=== PATIENT | male | born 1945 | race Caucasian/White ===

== ENCOUNTER 2016-10-27 12:36 | Emergency (ER) | payer MEDICARE ==
[2016-10-27 12:53] VITALS: BP 143/65; PULSE 79; RESP 18; TEMP 98.3
--- NOTE | 2016-10-27 13:15 | ED ---
URI HPI - General Chief Complaint: Upper Respiratory Infection Stated Complaint: Cough,Headache Time Seen by Provider: 10/27/16 13:06 Source: patient, RN notes reviewed Mode of arrival: ambulatory Limitations: no limitations - History of Present Illness Initial Comments: Patient is a 71-year-old male presents to the emergency room for evaluation of cough and congestion. Patient states he's had symptoms since Sunday. Patient states that he has not been taking any [id number]-[id number] medications for symptoms. Patient states he has a dry cough. Patient denies coughing up any mucus. Patient states he has a slightly stuffy nose is having sinus congestion mostly on the left side. Patient denies ear pain. Patient states he only has a headache when he coughs. Patient states she has throat pain after coughing. Patient denies nausea or vomiting, abdominal pain, diarrhea or constipation. Patient denies any fevers. Patient denies smoking. - Related Data Home Medications Medication Instructions Recorded Confirmed Lansoprazole [Prevacid] 15 mg PO DAILY 08/06/14 08/14/16 Loratadine [Claritin] 10 mg PO DAILY 08/06/14 08/14/16 Lisinopril [Zestril] 2.5 mg PO DAILY 05/12/15 08/14/16 Fluticasone Propionate [Flonase 1 spray EA NOSTRIL DAILY PRN 04/19/16 08/14/16 Allergy Relief] Acetaminophen Tab [Tylenol] 650 mg PO Q6H PRN 08/14/16 08/14/16 Cholecalciferol [Vitamin D3] 5,000 unit PO DAILY 08/14/16 08/14/16 HYDROcodone/APAP 7.5-325MG [[place] 1 tab PO Q8H PRN 08/14/16 08/14/16 7.5-325] glipiZIDE [Glucotrol] 10 mg PO AC-SUPPER 08/14/16 08/14/16 Previous Rx's Medication Instructions Recorded Cefuroxime Axetil [Ceftin] 500 mg PO BID #20 tablet 08/17/16 Sodium Chloride 0.65% Nasal [Deep 2 spray NASAL QID PRN #0 spray 08/18/16 Sea] traMADol HCl [Ultram] 50 mg PO QID #20 tab 08/18/16 Fluticasone Nasal [place] [Flonase 2 spr EA NOSTRIL DAILY PRN #1 10/27/16 Nasal [place]] bottle guaiFENesin [Mucinex] 1,200 mg PO BID PRN 12 Days 10/27/16 Allergies Allergy/AdvReac Type Severity Reaction Status Date / Time amoxicillin [From Augmentin] Allergy Rash/Hives Verified 10/27/16 12:54 clavulanic acid Allergy Rash/Hives Verified 10/27/16 12:54 [From Augmentin] Review of Systems ROS Statement: Those systems with pertinent positive or pertinent negative responses have been documented in the HPI. ROS Other: All systems not noted in ROS Statement are negative. 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 History of Any Multi-Drug Resistant Organisms: None Reported Past Surgical History: Orthopedic Surgery Additional Past Surgical History / Comment(s): LEFT HAND thumb tendon repair. Past Anesthesia/Blood Transfusion Reactions: No Reported Reaction Past Psychological History: No Psychological Hx Reported Additional Psychological History / Comment(s): Pt resides with his spouse. He is independent. Smoking Status: Never smoker Past Alcohol Use History: Occasional Past Drug Use History: None Reported - Past Family History Father Family Medical History: CVA/TIA Additional Family Medical History / Comment(s): Father at the age of 85yrs. Mother Family Medical History: Diabetes Mellitus Additional Family Medical History / Comment(s): Mother at the age of 90yrs. General Exam - General Exam Comments Initial Comments: Sitting in exam room in no acute distress. Limitations: no limitations General appearance: alert, in no apparent distress Head exam: Present: atraumatic, normocephalic, normal inspection Eye exam: Present: normal appearance, PERRL, EOMI Pupils: Present: normal accommodation ENT exam: Present: normal exam, normal oropharynx, mucous membranes moist, TM's normal bilaterally, normal external ear exam Neck exam: Present: normal inspection, full ROM. Absent: tenderness, lymphadenopathy Respiratory exam: Present: normal lung sounds bilaterally. Absent: respiratory distress Cardiovascular Exam: Present: regular rate, normal rhythm, normal heart sounds Extremities exam: Present: normal inspection Back exam: Present: normal inspection Neurological exam: Present: alert, oriented X3, CN II-XII intact, normal gait Psychiatric exam: Present: normal affect, normal mood Skin exam: Present: warm, dry, intact, normal color. Absent: rash Course Vital Signs 10/27/16 12:49 Temperature 98.3 F Pulse Rate 79 Respiratory 18 Rate Blood Pressure 143/65 O2 Sat by Pulse 97 Oximetry Medical Decision Making - Medical Decision Making Patient is a 71-year-old male presents to the emergency room for evaluation sinus congestion since Sunday. Patient denies taking anything for his symptoms. Advised patient to take Mucinex and Flonase for symptoms and if they do not improve within 1 week to follow-up with his primary care provider. Patient states he understands everything that was discussed with him. Return parameters discussed. Disposition Clinical Impression: Upper respiratory infection Disposition: HOME SELF-CARE Condition: Good Instructions: Upper Respiratory Infection (ED) Additional Instructions: Take medications as directed. Please follow up with primary care provider in 1- 2 days for reevaluation. If any new symptom arises, symptoms worsen or fever develops, return to ER as soon as possible. Prescriptions: Fluticasone Nasal [place] [Flonase Nasal [place]] 2 spr EA NOSTRIL DAILY PRN #1 bottle PRN Reason: Congestion guaiFENesin [Mucinex] 1,200 mg PO BID PRN 12 Days PRN Reason: Congestion Referrals: None,Stated [Primary Care Provider] - 1-2 days Time of Disposition: 13:13
== END 2016-10-27 13:24 | disposition home or self-care (01) ==
LOC: EC 12:36
DX: J06.9 Acute upper respiratory infection, unspecified (principal); I10 Essential (primary) hypertension; E11.9 Type 2 diabetes mellitus without complications; K21.9 Gastro-esophageal reflux disease without esophagitis; Z79.84 Long term (current) use of oral hypoglycemic drugs; Z79.51 Long term (current) use of inhaled steroids; Z79.899 Other long term (current) drug therapy; J30.2 Other seasonal allergic rhinitis
CPT/HCPCS: 99283

== ENCOUNTER 2016-11-20 12:19 | Emergency (ER) | payer MEDICARE ==
[2016-11-20 12:42] VITALS: PULSE 63; RESP 18; TEMP 97.6
--- NOTE | 2016-11-20 13:08 | ED ---
Extremity Problem HPI - General Chief complaint: Extremity Problem,Nontraumatic Stated complaint: Rt Arm Weakness Time Seen by Provider: 11/20/16 12:53 Source: patient, RN notes reviewed Mode of arrival: ambulatory Limitations: no limitations - History of Present Illness Initial comments: 71-year-old male presents emergency Department with chief complaint of right shoulder pain. Patient has chronic right shoulder pain but states that he was bowling on Sunday and states that he was having increasing pain and states it felt very fatigued. Patient states that is still bothering but states he has no weakness. Patient denies any blurred vision, headache, dizziness, neck pain , chest pain or shortness of breath. Patient states he had no other associated symptoms. He states he never lost function of it. Patient states that he needs a work no because of his right shoulder. Patient has seen a surgeon in the past and states that there is nothing that they can do for him. - Related Data Home Medications Medication Instructions Recorded Confirmed Lansoprazole [Prevacid] 15 mg PO DAILY 08/06/14 08/14/16 Loratadine [Claritin] 10 mg PO DAILY 08/06/14 08/14/16 Lisinopril [Zestril] 2.5 mg PO DAILY 05/12/15 08/14/16 Fluticasone Propionate [Flonase 1 spray EA NOSTRIL DAILY PRN 04/19/16 08/14/16 Allergy Relief] Acetaminophen Tab [Tylenol] 650 mg PO Q6H PRN 08/14/16 08/14/16 Cholecalciferol [Vitamin D3] 5,000 unit PO DAILY 08/14/16 08/14/16 HYDROcodone/APAP 7.5-325MG [[place] 1 tab PO Q8H PRN 08/14/16 08/14/16 7.5-325] glipiZIDE [Glucotrol] 10 mg PO AC-SUPPER 08/14/16 08/14/16 Previous Rx's Medication Instructions Recorded Cefuroxime Axetil [Ceftin] 500 mg PO BID #20 tablet 08/17/16 Sodium Chloride 0.65% Nasal [Deep 2 spray NASAL QID PRN #0 spray 08/18/16 Sea] traMADol HCl [Ultram] 50 mg PO QID #20 tab 08/18/16 Fluticasone Nasal [place] [Flonase 2 spr EA NOSTRIL DAILY PRN #1 10/27/16 Nasal [place]] bottle guaiFENesin [Mucinex] 1,200 mg PO BID PRN 12 Days 10/27/16 Allergies Allergy/AdvReac Type Severity Reaction Status Date / Time amoxicillin [From Augmentin] Allergy Rash/Hives Verified 11/20/16 12:42 clavulanic acid Allergy Rash/Hives Verified 11/20/16 12:42 [From Augmentin] Review of Systems ROS Statement: Those systems with pertinent positive or pertinent negative responses have been documented in the HPI. ROS Other: All systems not noted in ROS Statement are negative. 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 History of Any Multi-Drug Resistant Organisms: None Reported Past Surgical History: Orthopedic Surgery Additional Past Surgical History / Comment(s): LEFT HAND thumb tendon repair. Past Anesthesia/Blood Transfusion Reactions: No Reported Reaction Past Psychological History: No Psychological Hx Reported Additional Psychological History / Comment(s): Pt resides with his spouse. He is independent. Smoking Status: Never smoker Past Alcohol Use History: Occasional Past Drug Use History: None Reported - Past Family History Father Family Medical History: CVA/TIA Additional Family Medical History / Comment(s): Father at the age of 85yrs. Mother Family Medical History: Diabetes Mellitus Additional Family Medical History / Comment(s): Mother at the age of 90yrs. General Exam Limitations: no limitations General appearance: alert, in no apparent distress Head exam: Present: atraumatic, normocephalic, normal inspection Eye exam: Present: normal appearance, PERRL, EOMI. Absent: scleral icterus, conjunctival injection, periorbital swelling ENT exam: Present: normal exam, normal oropharynx, mucous membranes moist Neck exam: Present: normal inspection, full ROM. Absent: tenderness, meningismus, lymphadenopathy Respiratory exam: Present: normal lung sounds bilaterally. Absent: respiratory distress, wheezes, rales, rhonchi, stridor Cardiovascular Exam: Present: regular rate, normal rhythm, normal heart sounds. Absent: systolic murmur, diastolic murmur, rubs, gallop, clicks Extremities exam: Present: other (Right shoulder there is some limited range of motion with extension of the shoulder secondary to rotator cuff injury patient has equal hide examiner strength pulses are equal bilaterally +2 radial, Refill less than 2 seconds patient has normal bicep, tricep tenderness normal reflexes lower extremity strength equal bilaterally also) Back exam: Present: full ROM. Absent: tenderness Neurological exam: Present: alert, oriented X3, CN II-XII intact, reflexes normal. Absent: motor sensory deficit Skin exam: Present: warm, dry, intact, normal color. Absent: rash Course Vital Signs 11/20/16 12:38 Temperature 97.6 F Pulse Rate 63 Respiratory 18 Rate Blood Pressure 181/74 O2 Sat by Pulse 96 Oximetry Disposition Clinical Impression: Right shoulder strain Disposition: HOME SELF-CARE Condition: Stable Instructions: Shoulder Sprain (ED) Additional Instructions: Please return to the Emergency Department if symptoms worsen or any other concerns. Referrals: None,Stated [Primary Care Provider] - 1-2 days Time of Disposition: 13:08
[2016-11-20 13:22] VITALS: BP 172/77
== END 2016-11-20 13:22 | disposition home or self-care (01) ==
LOC: EC 12:19
DX: S46.911A Strain of unspecified muscle, fascia and tendon at shoulder and upper arm level, right arm, initial encounter (principal); E11.9 Type 2 diabetes mellitus without complications; K21.9 Gastro-esophageal reflux disease without esophagitis; I10 Essential (primary) hypertension; M19.049 Primary osteoarthritis, unspecified hand; C95.91 Leukemia, unspecified, in remission; Z79.899 Other long term (current) drug therapy; Z88.0 Allergy status to penicillin; X58.XXXA Exposure to other specified factors, initial encounter; Y93.54 Activity, bowling
CPT/HCPCS: 99283

== ENCOUNTER → 2017-04-19 | Outpatient (CLI) | payer MEDICARE ==
--- NOTE | 2017-04-19 15:12 | CT ---
EXAMINATION TYPE: CT sinus wo con DATE OF EXAM: 04/19/2017 COMPARISON: 09/10/2009 HISTORY: Chronic sinus infections. CT DLP: 599 mGycm. Automated Exposure Control for Dose Reduction was Utilized. TECHNIQUE: CT scan of the sinuses is performed without contrast, axial images are obtained, coronal r eformatted images are also reviewed. FINDINGS: The paranasal sinuses including the frontal, ethmoid, sphenoid, and maxillary sinuses bila terally are well-aerated with very mild mucosal thickening involving both maxillary sinuses. No air-f luid levels.. The ostiomeatal complex is patent bilaterally on the coronal images. Visualized portion of mastoid air cells show no abnormal opacification. The globes are intact bilate rally. There are small kristian bullosa bilaterally. IMPRESSION: 1. Very mild chronic maxillary sinusitis.
== END | disposition home or self-care (01) ==
LOC: RADCTMAIN 14:41
PROVIDERS: ATTEND Otolaryngology
DX: J32.0 Chronic maxillary sinusitis (principal)
CPT/HCPCS: 70486

== ENCOUNTER 2017-05-25 06:57 | Emergency (ER) | payer MEDICARE ==
[2017-05-25] MEDS ORDERED: MECLIZINE 25 MG TAB PO STA (07:27)
--- NOTE | 2017-05-25 07:33 | ED ---
General Adult HPI - General Chief complaint: Dizziness Stated complaint: Light headed Time Seen by Provider: 05/25/17 07:05 Source: patient, RN notes reviewed Mode of arrival: ambulatory Limitations: no limitations - History of Present Illness Initial comments: 5-year-old male presents emergency department stating that he's been a little bit dizzy the last few days. Patient states she's been fighting some ALLERGIES and has been seeing an ENT for those ALLERGIES. Patient states the last couple days he gets the dizziness which makes him feel like he is moving back and forth. Patient states he woke up this morning started to work and got those feelings again and he was concerned so he came to the emergency department. Patient states his sugar was high yesterday and he recently was on steroids which she stopped because his sugars really high when he was on steroids. Patient states he got his sugar down last night he was concerned that maybe it was up again and he had run out of strips. Patient denies any chest pain or palpitations. Patient denies any shortness of breath or difficulty breathing. Patient denies any diaphoretic episodes. Patient denies abdominal pain patient denies nausea vomiting diarrhea. Patient denies any near syncopal episode. Patient states it's more of an off-balance feeling. Patient states moving his head deftly makes it worse per patient denies any new ringing in his ears or new deafness. Patient denies any recent injury or trauma. - Related Data Home Medications Medication Instructions Recorded Confirmed Lansoprazole [Prevacid] 15 mg PO DAILY 08/06/14 05/25/17 glipiZIDE [Glucotrol] 10 mg PO BID 08/14/16 05/25/17 Cetirizine HCl [Zyrtec] 10 mg PO DAILY 05/25/17 05/25/17 Lisinopril [Zestril] 20 mg PO DAILY 05/25/17 05/25/17 Montelukast Sodium [Singulair] 10 mg PO HS 05/25/17 05/25/17 metFORMIN HCL [Glucophage] 500 mg PO DAILY 05/25/17 05/25/17 Previous Rx's Medication Instructions Recorded Fluticasone Nasal [employer] [employer] [Flonase 2 spr EA NOSTRIL DAILY PRN #1 10/27/16 Nasal [employer]] bottle Meclizine [Antivert] 25 mg PO TID #20 tab 05/25/17 Allergies Allergy/AdvReac Type Severity Reaction Status Date / Time amoxicillin [From Augmentin] Allergy Rash/Hives Verified 05/25/17 08:13 clavulanic acid Allergy Rash/Hives Verified 05/25/17 08:13 [From Augmentin] Review of Systems ROS Statement: Those systems with pertinent positive or pertinent negative responses have been documented in the HPI. ROS Other: All systems not noted in ROS Statement are negative. 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 History of Any Multi-Drug Resistant Organisms: None Reported Past Surgical History: Orthopedic Surgery Additional Past Surgical History / Comment(s): LEFT HAND thumb tendon repair. Past Anesthesia/Blood Transfusion Reactions: No Reported Reaction Past Psychological History: No Psychological Hx Reported Smoking Status: Never smoker Past Alcohol Use History: Occasional Past Drug Use History: None Reported - Past Family History Father Family Medical History: CVA/TIA Additional Family Medical History / Comment(s): Father at the age of 85yrs. Mother Family Medical History: Diabetes Mellitus Additional Family Medical History / Comment(s): Mother at the age of 90yrs. General Exam - General Exam Comments Initial Comments: GENERAL: Patient is well-developed and well-nourished. Patient is nontoxic and well- hydrated and is in mild distress. ENT: Neck is soft and supple. No significant lymphadenopathy is noted. Oropharynx is clear. Moist mucous membranes. Neck has full range of motion without eliciting any pain. EYES: The sclera were anicteric and conjunctiva were pink and moist. Extraocular movements were intact and pupils were equal round and reactive to light. Eyelids were unremarkable. PULMONARY: Unlabored respirations. Good breath sounds bilaterally. No audible rales rhonchi or wheezing was noted. CARDIOVASCULAR: There is a regular rate and rhythm without any murmurs gallops or rubs. ABDOMEN: Soft and nontender with normal bowel sounds. No palpable organomegaly was noted. There is no palpable pulsatile mass. SKIN: Skin is clear with no lesions or rashes and otherwise unremarkable. NEUROLOGIC: Patient is alert and oriented x3. Cranial nerves II through XII are grossly intact. Motor and sensory are also intact. Normal speech, volume and content. Symmetrical smile. Cerebellar testing finger to nose is normal. MUSCULOSKELETAL: Normal extremities with adequate strength and full range of motion. No lower extremity swelling or edema. No calf tenderness. LYMPHATICS: No significant lymphadenopathy is noted PSYCHIATRIC: Normal psychiatric evaluation. Normal interpersonal interactions appears functionally intact in deals appropriately with others. No signs of depression. No signs of anxiety. Limitations: no limitations Course Vital Signs 05/25/17 05/25/17 05/25/17 07:05 08:08 08:53 Temperature 97.8 F 97.7 F Pulse Rate 62 56 L 54 L Respiratory 18 20 18 Rate Blood Pressure 142/66 116/59 114/55 O2 Sat by Pulse 97 98 97 Oximetry Medical Decision Making - Medical Decision Making EKG shows normal sinus rhythm at 61 bpm [place] interval is 126 QRS is 90 QT interval is 424 QTC is 426 per patient's EKG shows no ST segment elevation or depression or T wave normalities are noted. Chest x-ray shows no acute normalities. CT of the brain shows no acute normalities. Patient was ambulatory around the department he states he felt better but not quite to his baseline he still felt as though he had a little bit of dizziness. Patient states this is been ongoing intermittently for quite a while but over the last week has gotten considerably worse. - Lab Data Result diagrams: 05/25/17 07:45 05/25/17 07:45 Lab Results 05/25/17 05/25/17 05/25/17 Range/Units 07:45 07:45 07:45 WBC 37.3 H* (3.8-10.6) k/uL RBC 4.42 (4.30-5.90) m/uL Hgb 14.4 (13.0-17.5) gm/dL Hct 39.6 (39.0-53.0) % MCV 89.5 (80.0-100.0) fL MCH 32.5 (25.0-35.0) pg MCHC 36.3 (31.0-37.0) g/dL RDW 13.6 (11.5-15.5) % Plt Count 150 (150-450) k/uL Neutrophils % (Manual) 13 % Lymphocytes % (Manual) 86 % Monocytes % (Manual) 1 % Eosinophils % (Manual) 1 % Neutrophils # (Manual) 4.85 (1.3-7.7) k/uL Lymphocytes # (Manual) 32.08 H (1.0-4.8) k/uL Monocytes # (Manual) 0.37 (0-1.0) k/uL Eosinophils # (Manual) 0.37 (0-0.7) k/uL Nucleated RBCs 0 (0-0) /100 WBC Poikilocytosis (manual Present Anisocytosis (manual) Present PT (9.0-12.0) sec INR (<1.2) APTT (22.0-30.0) sec Sodium 136 L (137-145) mmol/L Potassium 4.6 (3.5-5.1) mmol/L Chloride 102 (98-107) mmol/L Carbon Dioxide 23 (22-30) mmol/L Anion Gap 11 mmol/L BUN 23 H (9-20) mg/dL Creatinine 0.99 (0.66-1.25) mg/dL Est GFR (MDRD) Af Amer >60 (>60 ml/min/1.73 sqM) Est GFR (MDRD) Non-Af >60 (>60 ml/min/1.73 sqM) Glucose 306 H (74-99) mg/dL Calcium 9.1 (8.4-10.2) mg/dL Magnesium 1.7 (1.6-2.3) mg/dL Total Bilirubin 0.7 (0.2-1.3) mg/dL AST 17 (17-59) U/L ALT 27 (21-72) U/L Alkaline Phosphatase 122 (38-126) U/L Total Creatine Kinase 101 (55-170) U/L CK-MB (CK-2) 1.9 (0.0-2.4) ng/mL CK-MB (CK-2) Rel Index 1.9 Troponin I <0.012 (0.000-0.034) ng/mL Total Protein 6.0 L (6.3-8.2) g/dL Albumin 3.8 (3.5-5.0) g/dL 05/25/17 Range/Units 07:45 WBC (3.8-10.6) k/uL RBC (4.30-5.90) m/uL Hgb (13.0-17.5) gm/dL Hct (39.0-53.0) % MCV (80.0-100.0) fL MCH (25.0-35.0) pg MCHC (31.0-37.0) g/dL RDW (11.5-15.5) % Plt Count (150-450) k/uL Neutrophils % (Manual) % Lymphocytes % (Manual) % Monocytes % (Manual) % Eosinophils % (Manual) % Neutrophils # (Manual) (1.3-7.7) k/uL Lymphocytes # (Manual) (1.0-4.8) k/uL Monocytes # (Manual) (0-1.0) k/uL Eosinophils # (Manual) (0-0.7) k/uL Nucleated RBCs (0-0) /100 WBC Poikilocytosis (manual Anisocytosis (manual) PT 11.2 (9.0-12.0) sec INR 1.1 (<1.2) APTT 22.6 (22.0-30.0) sec Sodium (137-145) mmol/L Potassium (3.5-5.1) mmol/L Chloride (98-107) mmol/L Carbon Dioxide (22-30) mmol/L Anion Gap mmol/L BUN (9-20) mg/dL Creatinine (0.66-1.25) mg/dL Est GFR (MDRD) Af Amer (>60 ml/min/1.73 sqM) Est GFR (MDRD) Non-Af (>60 ml/min/1.73 sqM) Glucose (74-99) mg/dL Calcium (8.4-10.2) mg/dL Magnesium (1.6-2.3) mg/dL Total Bilirubin (0.2-1.3) mg/dL AST (17-59) U/L ALT (21-72) U/L Alkaline Phosphatase (38-126) U/L Total Creatine Kinase (55-170) U/L CK-MB (CK-2) (0.0-2.4) ng/mL CK-MB (CK-2) Rel Index Troponin I (0.000-0.034) ng/mL Total Protein (6.3-8.2) g/dL Albumin (3.5-5.0) g/dL Disposition Clinical Impression: Vertigo Disposition: HOME SELF-CARE Condition: Good Instructions: Vertigo (ED) Prescriptions: Meclizine [Antivert] 25 mg PO TID #20 tab Referrals: Edgard Schneider DO [Primary Care Provider] - 1-2 days Time of Disposition: 10:01
[2017-05-25 08:05] LABS: ALT 27 U/L (21-72); AST 17 U/L (17-59); Alkaline Phosphatase 122 U/L (38-126); Anion Gap 11 mmol/L; Blood Urea Nitrogen 23 mg/dL (9-20); Calcium 9.1 mg/dL (8.4-10.2); Carbon Dioxide 23 mmol/L (22-30); Chloride 102 mmol/L (98-107); Glucose 306 mg/dL (74-99); Magnesium 1.7 mg/dL (1.6-2.3); Non-African American GFR(MDRD) >60 (>60 ml/min/1.73 sqM); Potassium 4.6 mmol/L (3.5-5.1); Sodium 136 mmol/L (137-145); Total Bilirubin 0.7 mg/dL (0.2-1.3)
[2017-05-25 08:15] LABS: Creatine Kinase 101 U/L (55-170)
--- NOTE | 2017-05-25 08:15 | XR ---
EXAMINATION TYPE: XR chest 2V DATE OF EXAM: 05/25/2017 COMPARISON: NONE HISTORY: Lightheadedness TECHNIQUE: Frontal and lateral views of the chest are obtained. FINDINGS: There is no focal air space opacity, pleural effusion, or pneumothorax seen. The cardiac silhouette size is within normal limits. The osseous structures are intact. IMPRESSION: No acute cardiopulmonary process.
[2017-05-25 08:18] LABS: INR 1.1 (<1.2); Partial Thromboplastin Time 22.6 sec (22.0-30.0); Prothrombin Time 11.2 sec (9.0-12.0)
[2017-05-25 08:19] LABS: CH 32.1; CHCM 36.1; HCT 39.6 % (39.0-53.0); HDW 3.17; HGB 14.4 gm/dL (13.0-17.5); MCH 32.5 pg (25.0-35.0); MCHC 36.3 g/dL (31.0-37.0); MCV 89.5 fL (80.0-100.0); Mean Platelet Volume 7.4; RBC 4.42 m/uL (4.30-5.90); RDW 13.6 % (11.5-15.5); WBC (Perox) 33.62
[2017-05-25 08:27] LABS: Creatine Kinase MB 1.9 ng/mL (0.0-2.4); Troponin I <0.012 ng/mL (0.000-0.034)
[2017-05-25 08:28] LABS: WBC 37.3 k/uL (3.8-10.6)
[2017-05-25 08:47] LABS: Add Differential Manual Differential
[2017-05-25 08:50] LABS: Nucleated Red Blood Cells 0 /100 WBC (0-0); Total Cells Counted 200
[2017-05-25] MEDS ORDERED: SODIUM CHLORIDE 0.9% 1,000 ML IV ONE (08:50)
[2017-05-25 08:54] VITALS: PULSE 54
--- NOTE | 2017-05-25 09:47 | CT ---
EXAMINATION TYPE: CT brain wo con DATE OF EXAM: 05/25/2017 COMPARISON: 12/12/2016 INDICATION: Light headed DLP: 1036 mGycm, Automated exposure control for dose reduction was used. CONTRAST: None CT of the brain is performed utilizing 3 mm thick sections through the posterior fossa and 3 mm thick sections through the remaining calvarium. Study is performed within 24 hours of arrival to the hosp [facility]. No abnormal hyperdensity is present to suggest an acute intracranial hemorrhage. No mass lesion is evident. No acute infarcts are evident. Ventricles and sulci are appropriate for the patient age. Paranasal sinuses and mastoid air cells within the [id number] are clear. IMPRESSIONS: 1. Normal CT Brain 2. Exam is stable from 12/12/2016.
[2017-05-25 10:21] VITALS: BP 132/68; RESP 16; TEMP 98
== END 2017-05-25 10:26 | disposition home or self-care (01) ==
LOC: EC 06:57
DX: R42 Dizziness and giddiness (principal); E11.9 Type 2 diabetes mellitus without complications; K21.9 Gastro-esophageal reflux disease without esophagitis; I10 Essential (primary) hypertension; Z85.6 Personal history of leukemia; Z79.84 Long term (current) use of oral hypoglycemic drugs; Z79.899 Other long term (current) drug therapy; Z88.0 Allergy status to penicillin
CPT/HCPCS: 36415; 70450; 71020; 80053; 82550; 82553; 83735; 84484; 85025; 85610; 85730; 93005; 96360; 99284

== ENCOUNTER 2017-08-20 11:05 | Emergency (ER) | payer MEDICARE ==
[2017-08-20 11:14] VITALS: RESP 18
--- NOTE | 2017-08-20 11:36 | ED ---
URI HPI - General Chief Complaint: Upper Respiratory Infection Stated Complaint: Fall Time Seen by Provider: 08/20/17 11:16 Source: patient, RN notes reviewed, old records reviewed Mode of arrival: ambulatory Limitations: no limitations - History of Present Illness Initial Comments: 72-year-old male presents emergency Department chief complaint of some right- sided rib pain after he fell while moving his furnace. He reports that he's also had a minor cough. It's been a dry cough. No productive sputum. No fevers or chills. He also reports sinuses been congested. He states that all this occurred after his furnace or not in his house. He reports he try to fix furnace when he fell on his back. He states that the changes in weather has made him sick. Denies difficulty breathing, denies chest pain. Denies nausea, vomiting, abdominal pain. - Related Data Home Medications Medication Instructions Recorded Confirmed Lansoprazole [Prevacid] 15 mg PO DAILY 08/06/14 08/20/17 glipiZIDE [Glucotrol] 10 mg PO BID 08/14/16 08/20/17 Cetirizine HCl [Zyrtec] 10 mg PO DAILY 05/25/17 08/20/17 Lisinopril [Zestril] 20 mg PO DAILY 05/25/17 08/20/17 Montelukast Sodium [Singulair] 10 mg PO HS 05/25/17 08/20/17 metFORMIN HCL [Glucophage] 500 mg PO DAILY 05/25/17 08/20/17 Previous Rx's Medication Instructions Recorded Fluticasone Nasal [place] [Flonase 2 spr EA NOSTRIL DAILY PRN #1 10/27/16 Nasal [place]] bottle Azithromycin [Zithromax Z-pack] 250 mg PO DIRECTED #6 tab 08/20/17 Fluticasone Nasal [place] [Flonase 2 spr EA NOSTRIL DAILY #1 bottle 08/20/17 Nasal [place]] Ibuprofen [Motrin] 600 mg PO Q8HR PRN #15 tab 08/20/17 Allergies Allergy/AdvReac Type Severity Reaction Status Date / Time amoxicillin [From Augmentin] Allergy Rash/Hives Verified 08/20/17 11:36 clavulanic acid Allergy Rash/Hives Verified 08/20/17 11:36 [From Augmentin] Review of Systems ROS Statement: Those systems with pertinent positive or pertinent negative responses have been documented in the HPI. ROS Other: All systems not noted in ROS Statement are negative. Past Medical History Past Medical History: Cancer, Diabetes Mellitus, GERD/Reflux, Hypertension, Osteoarthritis (OA) Additional Past Medical History / Comment(s): NIDDM type II, 1999 LEUKEMIA (CLL- remission), sinus problems, seasonal allergies, tinnitis bilaterally, OA hands, R wrist carpal tunnel, past fx with L elbow, R rotator cuff tendon problems, L rotator cuff tear. History of Any Multi-Drug Resistant Organisms: None Reported Past Surgical History: Orthopedic Surgery Additional Past Surgical History / Comment(s): LEFT HAND thumb tendon repair. Past Anesthesia/Blood Transfusion Reactions: No Reported Reaction Past Psychological History: No Psychological Hx Reported Smoking Status: Never smoker Past Alcohol Use History: Occasional Past Drug Use History: None Reported - Past Family History Father Family Medical History: CVA/TIA Additional Family Medical History / Comment(s): Father at the age of 85yrs. Mother Family Medical History: Diabetes Mellitus Additional Family Medical History / Comment(s): Mother at the age of 90yrs. General Exam - General Exam Comments Initial Comments: 72-year-old male. No distress. Limitations: no limitations General appearance: alert, in no apparent distress Head exam: Present: atraumatic, normocephalic, normal inspection Eye exam: Present: normal appearance, PERRL, EOMI. Absent: scleral icterus, conjunctival injection, periorbital swelling ENT exam: Present: normal exam, mucous membranes moist Neck exam: Present: normal inspection. Absent: tenderness, meningismus, lymphadenopathy Respiratory exam: Present: normal lung sounds bilaterally, chest wall tenderness (Right-sided lower rib tenderness). Absent: respiratory distress, wheezes, rales, rhonchi, stridor Cardiovascular Exam: Present: regular rate, normal rhythm, normal heart sounds. Absent: systolic murmur, diastolic murmur, rubs, gallop, clicks GI/Abdominal exam: Present: soft, normal bowel sounds. Absent: distended, tenderness, guarding, rebound, rigid Extremities exam: Present: normal inspection, full ROM, normal capillary refill. Absent: tenderness, pedal edema, joint swelling, calf tenderness Back exam: Present: normal inspection Neurological exam: Present: alert, oriented X3, CN II-XII intact Psychiatric exam: Present: normal affect, normal mood Skin exam: Present: warm, dry, intact, normal color. Absent: rash Course Vital Signs 08/20/17 08/20/17 08/20/17 11:11 11:57 12:38 Temperature 97.0 F L 97.6 F Pulse Rate 61 62 Respiratory 18 18 18 Rate Blood Pressure 157/70 147/72 O2 Sat by Pulse 98 96 Oximetry Medical Decision Making - Medical Decision Making 72-year-old male presents emergency Department chief complaint of some right- sided rib pain after he fell while moving his furnace. He reports that he's also had a minor cough. It's been a dry cough. Patient has right rib pain. Lungs are clear, no distress. does have sinus drainage and pressure. Patient CXR is negative for acute process. Patient will be discharged with motrin and tyelnol for pain and advised to apply heat and ice to lower rib for contusion and muscle pain. Patient also discharged with flonase for sinusitis. Return parameters discussed. - Radiology Data Radiology results: report reviewed Chest x-ray was reviewed and negative for any acute process. Disposition Clinical Impression: Upper respiratory infection with cough and congestion, Muscle strain of right upper back Disposition: HOME SELF-CARE Condition: Good Instructions: Upper Respiratory Infection (ED) Additional Instructions: Advised to apply heat and ice to her back. Patient should take Motrin for pain. Antibiotic prescription as directed. Also recommended using Nasal saline spray. An [id number] decongestions. Prescriptions: Azithromycin [Zithromax Z-pack] 250 mg PO DIRECTED #6 tab Fluticasone Nasal [place] [Flonase Nasal [place]] 2 spr EA NOSTRIL DAILY #1 bottle Ibuprofen [Motrin] 600 mg PO Q8HR PRN #15 tab PRN Reason: Pain Referrals: Edgard Schneider DO [Primary Care Provider] - 1-2 days Time of Disposition: 12:34
--- NOTE | 2017-08-20 11:54 | XR ---
EXAMINATION TYPE: XR chest 2V DATE OF EXAM: 08/20/2017 COMPARISON: 05/25/2017 HISTORY: 72-year-old male with pain after fall 4 days ago TECHNIQUE: PA and lateral views FINDINGS: Heart is normal size. Mild elongation of the thoracic aorta. No consolidation, pneumothorax, or pleur al effusion. IMPRESSION: No acute cardiopulmonary process.
[2017-08-20 12:53] VITALS: BP 147/72; PULSE 62; TEMP 97.6
== END 2017-08-20 12:39 | disposition home or self-care (01) ==
LOC: EC 11:05
DX: S29.012A Strain of muscle and tendon of back wall of thorax, initial encounter (principal); J06.9 Acute upper respiratory infection, unspecified; E11.9 Type 2 diabetes mellitus without complications; K21.9 Gastro-esophageal reflux disease without esophagitis; I10 Essential (primary) hypertension; M19.049 Primary osteoarthritis, unspecified hand; Z85.6 Personal history of leukemia; Z79.84 Long term (current) use of oral hypoglycemic drugs; Z79.899 Other long term (current) drug therapy; Z88.0 Allergy status to penicillin; W19.XXXA Unspecified fall, initial encounter; Y93.89 Activity, other specified
CPT/HCPCS: 71020; 99284

== ENCOUNTER 2017-11-08 12:11 | Emergency (ER) | payer MEDICARE ==
--- NOTE | 2017-11-08 14:13 | ED ---
General Adult HPI - General Chief complaint: Headache Stated complaint: Headache Time Seen by Provider: 11/08/17 14:00 Source: patient Mode of arrival: ambulatory Limitations: no limitations - History of Present Illness Initial comments: This is a 72-year-old male with a history of diabetes and CLL who presents him in [facility] for generalized fatigue, mild headache, cough, generalized body aches. He states is been going on for the last week however seem to worsen last night. He states he felt febrile last night however not today. He still sees felt very fatigued and he states that his legs ache after he gets and walking. He denies any nausea, vomiting, or diarrhea. No abdominal pain. He states that he's been having intermittent headaches on the top of his head. It sounds like this is been going on for quite some time and is around an area where he had something removed from his scalp. The patient has had this evaluated in the past and etiology is unclear. There is been no dysuria or hematuria. No urinary frequency. No URI symptoms. No other acute complaints. - Related Data Home Medications Medication Instructions Recorded Confirmed Lansoprazole [Prevacid] 15 mg PO DAILY 08/06/14 11/08/17 Cetirizine HCl [Zyrtec] 10 mg PO DAILY 05/25/17 11/08/17 Lisinopril [Zestril] 20 mg PO DAILY 05/25/17 11/08/17 Montelukast Sodium [Singulair] 10 mg PO HS 05/25/17 11/08/17 glipiZIDE [Glucotrol] 5 mg PO AC-BID 11/08/17 11/08/17 Previous Rx's Medication Instructions Recorded Fluticasone Nasal [place] [Flonase 2 spr EA NOSTRIL DAILY PRN #1 10/27/16 Nasal [place]] bottle Allergies Allergy/AdvReac Type Severity Reaction Status Date / Time amoxicillin [From Augmentin] Allergy Rash/Hives Verified 11/08/17 14:20 clavulanic acid Allergy Rash/Hives Verified 11/08/17 14:20 [From Augmentin] Review of Systems ROS Statement: Those systems with pertinent positive or pertinent negative responses have been documented in the HPI. ROS Other: All systems not noted in ROS Statement are negative. Past Medical History Past Medical History: Cancer, Diabetes Mellitus, GERD/Reflux, Hypertension, Osteoarthritis (OA) Additional Past Medical History / Comment(s): NIDDM type II, 1998 LEUKEMIA (CLL- remission), sinus problems, seasonal allergies, tinnitis bilaterally, OA hands, R wrist carpal tunnel, past fx with L elbow, R rotator cuff tendon problems, L rotator cuff tear. History of Any Multi-Drug Resistant Organisms: None Reported Past Surgical History: Orthopedic Surgery Additional Past Surgical History / Comment(s): LEFT HAND thumb tendon repair. Past Anesthesia/Blood Transfusion Reactions: No Reported Reaction Past Psychological History: No Psychological Hx Reported Smoking Status: Never smoker Past Alcohol Use History: Occasional Past Drug Use History: None Reported - Past Family History Father Family Medical History: CVA/TIA Additional Family Medical History / Comment(s): Father at the age of 85yrs. Mother Family Medical History: Diabetes Mellitus Additional Family Medical History / Comment(s): Mother at the age of 90yrs. General Exam - General Exam Comments Initial Comments: Constitutional: Awake alert Appears comfortable Head: Normocephalic atraumatic Eyes: no conjunctival injection No scleral icterus EOMI, pupils are 4 mm reactive bilaterally ENT: Oropharynx is nonerythematous, TMs clear bilaterally Neck: No JVD Supple Heart: Regular rate rhythm normal S1-S2 no murmurs Lungs: Clear to auscultation bilaterally No wheezing No rales Abdomen: Soft nondistended nontender Extremities: Non edematous DP pulses intact Radial pulses intact Neuro: A&Ox3, cranial nerves II through XII are grossly intact, 5 out of 5 strength in upper and lower extremities bilaterally, sensation intact to light touch in all extremities, normal finger nose and heel to mckinnon testing. No focal neurologic deficits Psych: Appropriate mood and affect Limitations: no limitations Course Vital Signs 11/08/17 11/08/17 12:21 14:33 Temperature 97.6 F Pulse Rate 68 60 Respiratory 16 18 Rate Blood Pressure 175/77 133/62 O2 Sat by Pulse 96 96 Oximetry EKG Findings - EKG Comments: EKG Findings:: EKG showing normal sinus rhythm with a rate of 60. Normal ST segment changes or T-wave inversions. QTC is 408. Other vitals normal. No ectopy. Medical Decision Making - Medical Decision Making This is a 72-year-old male came in for generalized weakness and vague complaints. He denied a headache while in the emergency department. Labwork was reviewed and showed a worsening leukocytosis. He does have a history of CLL however he stated he used to be in remission however this appears to be that it's been slowly increasing. I advised him to follow-up with his primary doctor to have this evaluated further. He does have a mild mild achy eye however nothing severe. He needs to drink plenty of fluids and follow-up his primary doctor. He otherwise feels well. Skin no focal neurologic deficits. Is not ill-appearing at all. At this time feel these okay to go home however needs very close follow-up with his primary doctor. If he develops any worsening or new symptoms he needs return the emergency Department. All questions were answered. - Lab Data Result diagrams: 11/08/17 14:20 11/08/17 14:20 Lab Results 11/08/17 11/08/17 11/08/17 Range/Units 14:20 14:20 14:20 WBC 38.1 H* (3.8-10.6) k/uL RBC 4.76 (4.30-5.90) m/uL Hgb 14.8 (13.0-17.5) gm/dL Hct 43.0 (39.0-53.0) % MCV 90.4 (80.0-100.0) fL MCH 31.1 (25.0-35.0) pg MCHC 34.4 (31.0-37.0) g/dL RDW 13.6 (11.5-15.5) % Plt Count 137 L (150-450) k/uL Neutrophils % (Manual) 12 % Lymphocytes % (Manual) 87 % Monocytes % (Manual) 2 % Eosinophils % (Manual) 1 % Neutrophils # (Manual) 4.57 (1.3-7.7) k/uL Lymphocytes # (Manual) 33.15 H (1.0-4.8) k/uL Monocytes # (Manual) 0.76 (0-1.0) k/uL Eosinophils # (Manual) 0.38 (0-0.7) k/uL Nucleated RBCs 0 (0-0) /100 WBC Poikilocytosis (manual Present Anisocytosis (manual) Present Sodium 139 (137-145) mmol/L Potassium 5.1 (3.5-5.1) mmol/L Chloride 102 (98-107) mmol/L Carbon Dioxide 24 (22-30) mmol/L Anion Gap 13 mmol/L BUN 23 H (9-20) mg/dL Creatinine 1.27 H (0.66-1.25) mg/dL Est GFR (MDRD) Af Amer >60 (>60 ml/min/1.73 sqM) Est GFR (MDRD) Non-Af 56 (>60 ml/min/1.73 sqM) Glucose 348 H (74-99) mg/dL Calcium 10.0 (8.4-10.2) mg/dL Total Bilirubin 0.7 (0.2-1.3) mg/dL AST 20 (17-59) U/L ALT 32 (21-72) U/L Alkaline Phosphatase 127 H (38-126) U/L Total Protein 6.7 (6.3-8.2) g/dL Albumin 4.5 (3.5-5.0) g/dL Urine Color Urine Appearance (Clear) Urine pH (5.0-8.0) Ur Specific [place] (1.001-1.035) Urine Protein (Negative) Urine Glucose (UA) (Negative) Urine Ketones (Negative) Urine Blood (Negative) Urine Nitrite (Negative) Urine Bilirubin (Negative) Urine Urobilinogen (<2.0) mg/dL Ur Leukocyte Esterase (Negative) Influenza Type A RNA Not Detected (Not Detectd) Influenza Type B (PCR) Not Detected (Not Detectd) Blood Type Blood Type Recheck Antibody Screen Spec Expiration Date 11/08/17 11/08/17 Range/Units 14:20 15:10 WBC (3.8-10.6) k/uL RBC (4.30-5.90) m/uL Hgb (13.0-17.5) gm/dL Hct (39.0-53.0) % MCV (80.0-100.0) fL MCH (25.0-35.0) pg MCHC (31.0-37.0) g/dL RDW (11.5-15.5) % Plt Count (150-450) k/uL Neutrophils % (Manual) % Lymphocytes % (Manual) % Monocytes % (Manual) % Eosinophils % (Manual) % Neutrophils # (Manual) (1.3-7.7) k/uL Lymphocytes # (Manual) (1.0-4.8) k/uL Monocytes # (Manual) (0-1.0) k/uL Eosinophils # (Manual) (0-0.7) k/uL Nucleated RBCs (0-0) /100 WBC Poikilocytosis (manual Anisocytosis (manual) Sodium (137-145) mmol/L Potassium (3.5-5.1) mmol/L Chloride (98-107) mmol/L Carbon Dioxide (22-30) mmol/L Anion Gap mmol/L BUN (9-20) mg/dL Creatinine (0.66-1.25) mg/dL Est GFR (MDRD) Af Amer (>60 ml/min/1.73 sqM) Est GFR (MDRD) Non-Af (>60 ml/min/1.73 sqM) Glucose (74-99) mg/dL Calcium (8.4-10.2) mg/dL Total Bilirubin (0.2-1.3) mg/dL AST (17-59) U/L ALT (21-72) U/L Alkaline Phosphatase (38-126) U/L Total Protein (6.3-8.2) g/dL Albumin (3.5-5.0) g/dL Urine Color Yellow Urine Appearance Clear (Clear) Urine pH 5.0 (5.0-8.0) Ur Specific [place] 1.026 (1.001-1.035) Urine Protein Negative (Negative) Urine Glucose (UA) 4+ H (Negative) Urine Ketones Negative (Negative) Urine Blood Negative (Negative) Urine Nitrite Negative (Negative) Urine Bilirubin Negative (Negative) Urine Urobilinogen <2.0 (<2.0) mg/dL Ur Leukocyte Esterase Negative (Negative) Influenza Type A RNA (Not Detectd) Influenza Type B (PCR) (Not Detectd) Blood Type O Negative Blood Type Recheck No Antibody Screen NEGATIVE Spec Expiration Date 11/11/20172319 Disposition Clinical Impression: Leukocytosis, CLL (chronic lymphocytic leukemia) Disposition: HOME SELF-CARE Condition: Stable Instructions: Leukocytosis (ED) Additional Instructions: Call your PCP to make appointment to have your elevated WBC checking into further. Return to ED if you develop new or worsening symptoms. Referrals: Edgard Schneider DO [Primary Care Provider] - 1-2 days
[2017-11-08 14:42] LABS: ALT 32 U/L (21-72); AST 20 U/L (17-59); Albumin 4.5 g/dL (3.5-5.0); Alkaline Phosphatase 127 U/L (38-126); Anion Gap 13 mmol/L; Blood Urea Nitrogen 23 mg/dL (9-20); Carbon Dioxide 24 mmol/L (22-30); Chloride 102 mmol/L (98-107); Glucose 348 mg/dL (74-99); Potassium 5.1 mmol/L (3.5-5.1); Sodium 139 mmol/L (137-145); Total Bilirubin 0.7 mg/dL (0.2-1.3); Total Protein 6.7 g/dL (6.3-8.2)
[2017-11-08 14:43] LABS: HGB 14.8 gm/dL (13.0-17.5); MCH 31.1 pg (25.0-35.0); MCHC 34.4 g/dL (31.0-37.0); MCV 90.4 fL (80.0-100.0); Mean Platelet Volume 7.3; Platelet Count 137 k/uL (150-450); RBC 4.76 m/uL (4.30-5.90); RDW 13.6 % (11.5-15.5)
--- NOTE | 2017-11-08 14:46 | XR ---
EXAMINATION TYPE: XR chest 2V DATE OF EXAM: 11/08/2017 COMPARISON: Prior chest x-ray 08/20/2017 HISTORY: Pain TECHNIQUE: Frontal and lateral views of the chest are obtained. FINDINGS: There is no focal air space opacity, pleural effusion, or pneumothorax seen. The cardiac silhouette size is within normal limits. Arthropathy noted at the acromioclavicular joints. The oss eous structures are intact. IMPRESSION: No acute cardiopulmonary process.
[2017-11-08 14:48] LABS: WBC 38.1 k/uL (3.8-10.6)
[2017-11-08 15:11] LABS: Lymphocytes # (M) 33.15 k/uL (1.0-4.8); Neutrophils # (M) 4.57 k/uL (1.3-7.7); Neutrophils % (M) 12 %
[2017-11-08 15:12] LABS: Anisocytosis (M) Present; Eosinophils # (M) 0.38 k/uL (0-0.7); Monocytes # (M) 0.76 k/uL (0-1.0); Nucleated Red Blood Cells 0 /100 WBC (0-0); Poikilocytosis (M) Present; Total Cells Counted 200
[2017-11-08 15:22] LABS: Appearance,Urine Clear (Clear); Bilirubin,Urine Negative (Negative); Blood,Urine Negative (Negative); Color,Urine Yellow; Glucose,Urine (UA) 4+ (Negative); Ketones,Urine Negative (Negative); Leukocyte Esterase,Urine Negative (Negative); Nitrite,Urine Negative (Negative); Protein,Urine Negative (Negative); Specific Gravity,Urine 1.026 (1.001-1.035); Urobilinogen,Urine <2.0 mg/dL (<2.0)
[2017-11-08 15:59] VITALS: BP 160/71; PULSE 67; RESP 16; TEMP 97.3
== END 2017-11-08 16:00 | disposition home or self-care (01) ==
LOC: EC 12:11
DX: C91.11 Chronic lymphocytic leukemia of B-cell type in remission (principal); D72.829 Elevated white blood cell count, unspecified; E11.9 Type 2 diabetes mellitus without complications; I10 Essential (primary) hypertension; Z88.0 Allergy status to penicillin; Z79.84 Long term (current) use of oral hypoglycemic drugs; Z79.899 Other long term (current) drug therapy
CPT/HCPCS: 36415; 71046; 80053; 81003; 85025; 86850; 86900; 86901; 87086; 87502; 93005; 99284

== ENCOUNTER → 2018-08-13 | Outpatient (CLI) | payer MEDICARE ==
[~2018-08-13] MED LIST: ACETAMINOPHEN TAB 500 MG TAB PO NR; ACETAMINOPHEN TAB 500 MG TAB PO ONE; IMMUNE GLOBULIN (GAMMAGARD) 30 GM in EMPTY BAG 1 BAG IV NR; IMMUNE GLOBULIN (GAMUNEX-C) 10 GM in EMPTY BAG 1 BAG IV NR; IMMUNE GLOBULIN (GAMUNEX-C) 20 GM in EMPTY BAG 1 BAG IV NR; IMMUNE GLOBULIN (GAMUNEX-C) 40 GM in EMPTY BAG 1 BAG IV NR; SODIUM CHLORIDE 0.9% 500 ML 500 ML in EMPTY BAG 1 BAG IV PRN; diphenhydrAMINE 50 MG/ML 1 ML VIAL IVP NR; diphenhydrAMINE 50 MG/ML 1 ML VIAL IVP ONE; methylPREDNISolone SOD SUCCI 125 MG/2 ML VIAL IV NR; methylPREDNISolone SOD SUCCI 125 MG/2 ML VIAL IV ONE; methylPREDNISolone SOD SUCCI 125 MG/2 ML VIAL IVP ONE
[2018-08-13 10:06] VITALS: RESP 16; TEMP 97.6
[2018-08-13 11:23] VITALS: BP 130/73; PULSE 54
== END | disposition home or self-care (01) ==
LOC: PROCWHC3 09:08
PROVIDERS: ATTEND Internal Medicine Hematology & Oncology
DX: Z51.12 Encounter for antineoplastic immunotherapy (principal); C91.10 Chronic lymphocytic leukemia of B-cell type not having achieved remission
CPT/HCPCS: 96365; 96366; 96375; J1200; J2930; J1561 ×2

== ENCOUNTER 2019-12-14 12:54 | Emergency (ER) | payer MEDICARE ==
[2019-12-14 13:05] VITALS: TEMP 97.5
[2019-12-14] MEDS ORDERED: SODIUM CHLORIDE 0.9% 500 ML 500 ML IV STA (13:23)
--- NOTE | 2019-12-14 13:36 | ED ---
General Adult HPI - General Chief complaint: Shortness of Breath Stated complaint: Weakness Time Seen by Provider: 12/14/19 13:00 Source: patient, RN notes reviewed, old records reviewed Mode of arrival: ambulatory Limitations: no limitations - History of Present Illness Initial comments: This is a 74-year-old male with a past medical history significant for CLL. Patient states he comes in today because he has a week of being generally weak. Patient states he has had occasional where he short of breath but not today. Patient denies any dizziness or lightheadedness. Patient denies any near syncopal episode. Patient denies any chest pain or palpitations. Patient states he had a little nausea patient is not nauseous currently. Patient denies any abdominal pain. Patient denies any fever chills. Patient states he thinks he might be dehydrated because he states seems to be weaker he has been eating and drinking normally - Related Data Home Medications Medication Instructions Recorded Confirmed Lansoprazole [Prevacid] 15 mg PO DAILY 08/06/14 08/13/18 Cetirizine HCl [Zyrtec] 10 mg PO DAILY 05/25/17 08/13/18 Lisinopril [Zestril] 40 mg PO DAILY 05/25/17 08/13/18 Montelukast Sodium [Singulair] 10 mg PO HS 05/25/17 08/13/18 Ibuprofen [Motrin] 800 mg PO DAILY PRN 08/13/18 08/13/18 Pioglitazone [Actos] 45 mg PO DAILY 08/13/18 08/13/18 Previous Rx's Medication Instructions Recorded Fluticasone Nasal [place] [Flonase 2 spr EA NOSTRIL DAILY PRN #1 10/27/16 Nasal [place]] bottle Allergies Allergy/AdvReac Type Severity Reaction Status Date / Time amoxicillin [From Augmentin] Allergy Rash/Hives Verified 12/14/19 13:05 clavulanic acid Allergy Rash/Hives Verified 12/14/19 13:05 [From Augmentin] Review of Systems ROS Statement: Those systems with pertinent positive or pertinent negative responses have been documented in the HPI. ROS Other: All systems not noted in ROS Statement are negative. Past Medical History Past Medical History: Cancer, Diabetes Mellitus, GERD/Reflux, Hypertension, Osteoarthritis (OA) Additional Past Medical History / Comment(s): NIDDM type II, 1999 LEUKEMIA (CLL- remission), sinus problems, seasonal allergies, tinnitis bilaterally, OA hands, R wrist carpal tunnel, past fx with L elbow, R rotator cuff tendon problems, L rotator cuff tear. History of Any Multi-Drug Resistant Organisms: None Reported Past Surgical History: Orthopedic Surgery Additional Past Surgical History / Comment(s): LEFT HAND thumb tendon repair. Past Anesthesia/Blood Transfusion Reactions: No Reported Reaction Past Psychological History: No Psychological Hx Reported Smoking Status: Never smoker Past Alcohol Use History: None Reported Past Drug Use History: None Reported - Past Family History Father Family Medical History: CVA/TIA Additional Family Medical History / Comment(s): Father at the age of 85yrs. Mother Family Medical History: Diabetes Mellitus Additional Family Medical History / Comment(s): Mother at the age of 90yrs. General Exam - General Exam Comments Initial Comments: GENERAL: Patient is well-developed and well-nourished. Patient is nontoxic and well- hydrated and is in no acute distress. ENT: Neck is soft and supple. No significant lymphadenopathy is noted. Oropharynx is clear. Moist mucous membranes. Neck has full range of motion without eliciting any pain. EYES: The sclera were anicteric and conjunctiva were pink and moist. Extraocular movements were intact and pupils were equal round and reactive to light. Eyelid s were unremarkable. PULMONARY: Unlabored respirations. Good breath sounds bilaterally. No audible rales rhonchi or wheezing was noted. CARDIOVASCULAR: There is a regular rate and rhythm without any murmurs gallops or rubs. ABDOMEN: Soft and nontender with normal bowel sounds. SKIN: Skin is clear with no lesions or rashes and otherwise unremarkable. NEUROLOGIC: Patient is alert and oriented x3. Cranial nerves II through XII are grossly intact. Motor and sensory are also intact. Normal speech, volume and content. Symmetrical smile. MUSCULOSKELETAL: Normal extremities with adequate strength and full range of motion. No lower extremity swelling or edema. No calf tenderness. LYMPHATICS: No significant lymphadenopathy is noted PSYCHIATRIC: Normal psychiatric evaluation. Limitations: no limitations Course Vital Signs 12/14/19 12/14/19 12/14/19 13:02 13:40 13:42 Temperature 97.5 F L Pulse Rate 80 70 Respiratory 22 18 18 Rate Blood Pressure 172/70 130/76 O2 Sat by Pulse 98 99 Oximetry 12/14/19 12/14/19 14:10 14:57 Temperature Pulse Rate 71 66 Respiratory 18 18 Rate Blood Pressure 138/72 169/85 O2 Sat by Pulse 98 99 Oximetry Medical Decision Making - Medical Decision Making EKG shows normal sinus rhythm at 74 bpm. Was 144 QRS is 84 QT interval 384 QTC is 426. EKG shows no ST segment elevation or depression. Patient got 500 mL of normal saline and is feeling considerably better. Patient states he feels good enough to go home at this time. Patient has no symptoms currently. - Lab Data Result diagrams: 12/14/19 13:35 12/14/19 13:35 Lab Results 12/14/19 12/14/19 12/14/19 Range/Units 13:35 13:35 13:35 WBC 26.8 H (3.8-10.6) k/uL RBC 4.72 (4.30-5.90) m/uL Hgb 15.1 (13.0-17.5) gm/dL Hct 43.5 (39.0-53.0) % MCV 92.1 D (80.0-100.0) fL MCH 31.9 (25.0-35.0) pg MCHC 34.7 (31.0-37.0) g/dL RDW 13.3 (11.5-15.5) % Plt Count 137 L (150-450) k/uL Neutrophils % 12 % Lymphocytes % 81 % Monocytes % 2 % Eosinophils % 0 % Basophils % 1 % Neutrophils # 3.3 (1.3-7.7) k/uL Lymphocytes # 21.8 H (1.0-4.8) k/uL Monocytes # 0.5 (0-1.0) k/uL Eosinophils # 0.1 (0-0.7) k/uL Basophils # 0.2 (0-0.2) k/uL Manual Slide Review Performed PT 10.6 (9.0-12.0) sec INR 1.0 (<1.2) APTT 22.2 (22.0-30.0) sec Sodium 138 (137-145) mmol/L Potassium 4.3 (3.5-5.1) mmol/L Chloride 104 (98-107) mmol/L Carbon Dioxide 25 (22-30) mmol/L Anion Gap 9 mmol/L BUN 22 H (9-20) mg/dL Creatinine 0.79 (0.66-1.25) mg/dL Est GFR (CKD-EPI)AfAm >90 (>60 ml/min/1.73 sqM) Est GFR (CKD-EPI)NonAf >90 (>60 ml/min/1.73 sqM) Glucose 230 H (74-99) mg/dL Plasma Lactic Acid [place] (0.7-2.0) mmol/L Calcium 9.6 (8.4-10.2) mg/dL Magnesium 2.0 (1.6-2.3) mg/dL Total Bilirubin 0.7 (0.2-1.3) mg/dL AST 20 (17-59) U/L ALT 21 (4-49) U/L Alkaline Phosphatase 82 (38-126) U/L Troponin I (0.000-0.034) ng/mL Total Protein 7.0 (6.3-8.2) g/dL Albumin 4.5 (3.5-5.0) g/dL TSH 1.440 (0.465-4.680) mIU/L Urine Color Urine Appearance (Clear) Urine pH (5.0-8.0) Ur Specific [place] (1.001-1.035) Urine Protein (Negative) Urine Glucose (UA) (Negative) Urine Ketones (Negative) Urine Blood (Negative) Urine Nitrite (Negative) Urine Bilirubin (Negative) Urine Urobilinogen (<2.0) mg/dL Ur Leukocyte Esterase (Negative) 12/14/19 12/14/19 12/14/19 Range/Units 13:35 13:35 Unknown WBC (3.8-10.6) k/uL RBC (4.30-5.90) m/uL Hgb (13.0-17.5) gm/dL Hct (39.0-53.0) % MCV (80.0-100.0) fL MCH (25.0-35.0) pg MCHC (31.0-37.0) g/dL RDW (11.5-15.5) % Plt Count (150-450) k/uL Neutrophils % % Lymphocytes % % Monocytes % % Eosinophils % % Basophils % % Neutrophils # (1.3-7.7) k/uL Lymphocytes # (1.0-4.8) k/uL Monocytes # (0-1.0) k/uL Eosinophils # (0-0.7) k/uL Basophils # (0-0.2) k/uL Manual Slide Review PT (9.0-12.0) sec INR (<1.2) APTT (22.0-30.0) sec Sodium (137-145) mmol/L Potassium (3.5-5.1) mmol/L Chloride (98-107) mmol/L Carbon Dioxide (22-30) mmol/L Anion Gap mmol/L BUN (9-20) mg/dL Creatinine (0.66-1.25) mg/dL Est GFR (CKD-EPI)AfAm (>60 ml/min/1.73 sqM) Est GFR (CKD-EPI)NonAf (>60 ml/min/1.73 sqM) Glucose (74-99) mg/dL Plasma Lactic Acid [place] 1.3 (0.7-2.0) mmol/L Calcium (8.4-10.2) mg/dL Magnesium (1.6-2.3) mg/dL Total Bilirubin (0.2-1.3) mg/dL AST (17-59) U/L ALT (4-49) U/L Alkaline Phosphatase (38-126) U/L Troponin I <0.012 (0.000-0.034) ng/mL Total Protein (6.3-8.2) g/dL Albumin (3.5-5.0) g/dL TSH (0.465-4.680) mIU/L Urine Color Yellow Urine Appearance Clear (Clear) Urine pH 5.5 (5.0-8.0) Ur Specific [place] 1.028 (1.001-1.035) Urine Protein Trace H (Negative) Urine Glucose (UA) 4+ H (Negative) Urine Ketones Negative (Negative) Urine Blood Negative (Negative) Urine Nitrite Negative (Negative) Urine Bilirubin Negative (Negative) Urine Urobilinogen 2.0 (<2.0) mg/dL Ur Leukocyte Esterase Negative (Negative) Disposition Clinical Impression: Weakness generalized, Dehydration Disposition: HOME SELF-CARE Condition: Good Instructions (If sedation given, give patient instructions): Dehydration (ED), Weakness (ED) Is patient prescribed a controlled substance at d/c from ED?: No Referrals: Edgard Schneider DO [Primary Care Provider] - 1-2 days Time of Disposition: 15:15
--- NOTE | 2019-12-14 13:51 | XR ---
EXAMINATION TYPE: XR chest 2V DATE OF EXAM: 12/14/2019 COMPARISON: 11/08/2017 HISTORY: 74-year-old male weakness TECHNIQUE: PA and lateral views FINDINGS: Heart normal size. Aorta and pulmonary vasculature within normal limits. Mild interstitial prominence is unchanged. No consolidation or pleural effusion. IMPRESSION: Chronic changes without acute cardiopulmonary process.
[2019-12-14 13:53] VITALS: RESP 18
[2019-12-14 14:00] LABS: Partial Thromboplastin Time 22.2 sec (22.0-30.0); Prothrombin Time 10.6 sec (9.0-12.0)
[2019-12-14 14:02] LABS: ALT 21 U/L (4-49); AST 20 U/L (17-59); African American GFR (CKD) >90 (>60 ml/min/1.73 sqM); Albumin 4.5 g/dL (3.5-5.0); Alkaline Phosphatase 82 U/L (38-126); Anion Gap 9 mmol/L; Blood Urea Nitrogen 22 mg/dL (9-20); Calcium 9.6 mg/dL (8.4-10.2); Carbon Dioxide 25 mmol/L (22-30); Chloride 104 mmol/L (98-107); Glucose 230 mg/dL (74-99); Non-African American GFR(CKD) >90 (>60 ml/min/1.73 sqM); Potassium 4.3 mmol/L (3.5-5.1); Sodium 138 mmol/L (137-145); Total Bilirubin 0.7 mg/dL (0.2-1.3)
[2019-12-14 14:12] LABS: Basophils # (A) 0.2 k/uL (0-0.2); Basophils % (A) 1 %; Eosinophils # (A) 0.1 k/uL (0-0.7); Eosinophils % (A) 0 %; HCT 43.5 % (39.0-53.0); HGB 15.1 gm/dL (13.0-17.5); Lymphocytes % (A) 81 %; MCH 31.9 pg (25.0-35.0); MCHC 34.7 g/dL (31.0-37.0); Mean Platelet Volume 8.1; Monocytes # (A) 0.5 k/uL (0-1.0); Monocytes % (A) 2 %; Neutrophils # (A) 3.3 k/uL (1.3-7.7); Neutrophils % (A) 12 %; Platelet Count 137 k/uL (150-450); RBC 4.72 m/uL (4.30-5.90); RDW 13.3 % (11.5-15.5); WBC 26.8 k/uL (3.8-10.6)
[2019-12-14 14:14] LABS: Appearance,Urine Clear (Clear); Bilirubin,Urine Negative (Negative); Blood,Urine Negative (Negative); Color,Urine Yellow; Glucose,Urine (UA) 4+ (Negative); Ketones,Urine Negative (Negative); Leukocyte Esterase,Urine Negative (Negative); Nitrite,Urine Negative (Negative); PH, Urine 5.5 (5.0-8.0); Protein,Urine Trace (Negative); Specific Gravity,Urine 1.028 (1.001-1.035)
[2019-12-14 14:23] LABS: Lymphocytes # (A) 21.8 k/uL (1.0-4.8); MCV 92.1 fL (80.0-100.0)
[2019-12-14 14:58] VITALS: BP 169/85; PULSE 66
== END 2019-12-14 15:23 | disposition home or self-care (01) ==
LOC: EC 12:54
DX: E86.0 Dehydration (principal); R53.1 Weakness; C91.11 Chronic lymphocytic leukemia of B-cell type in remission; E11.9 Type 2 diabetes mellitus without complications; K21.9 Gastro-esophageal reflux disease without esophagitis; I10 Essential (primary) hypertension; M19.041 Primary osteoarthritis, right hand; M19.042 Primary osteoarthritis, left hand; Z88.0 Allergy status to penicillin; Z79.1 Long term (current) use of non-steroidal anti-inflammatories (NSAID); Z79.84 Long term (current) use of oral hypoglycemic drugs; Z79.899 Other long term (current) drug therapy; Z91.048 Other nonmedicinal substance allergy status
CPT/HCPCS: 36415; 71046; 80053; 81003; 83605; 83735; 84443; 84484; 85025; 85610; 85730; 93005; 96360; 99285

== ENCOUNTER → 2020-03-04 | Outpatient (CLI) | payer MEDICARE ==
[~2020-03-04] MED LIST changes: -ACETAMINOPHEN TAB 500 MG TAB PO ONE; +IMMUNE GLOBULIN (GAMMAGARD) 10 GM in EMPTY BAG 1 BAG IV ONE; -IMMUNE GLOBULIN (GAMMAGARD) 30 GM in EMPTY BAG 1 BAG IV NR; +IMMUNE GLOBULIN (GAMMAGARD) 30 GM in EMPTY BAG 1 BAG IV ONE; +IMMUNE GLOBULIN (GAMMAGARD) 5 GM in EMPTY BAG 1 BAG IV ONE; -IMMUNE GLOBULIN (GAMUNEX-C) 10 GM in EMPTY BAG 1 BAG IV NR; -IMMUNE GLOBULIN (GAMUNEX-C) 20 GM in EMPTY BAG 1 BAG IV NR; -IMMUNE GLOBULIN (GAMUNEX-C) 40 GM in EMPTY BAG 1 BAG IV NR; -diphenhydrAMINE 50 MG/ML 1 ML VIAL IVP ONE; -methylPREDNISolone SOD SUCCI 125 MG/2 ML VIAL IV ONE; -methylPREDNISolone SOD SUCCI 125 MG/2 ML VIAL IVP ONE
[2020-03-04 08:00] VITALS: RESP 16; TEMP 98
[2020-03-04 09:34] VITALS: BP 148/75; PULSE 74
== END | disposition home or self-care (01) ==
LOC: PROCWHC3 07:45
PROVIDERS: ATTEND Internal Medicine Hematology & Oncology
DX: D80.1 Nonfamilial hypogammaglobulinemia (principal)
CPT/HCPCS: 96365; 96366; 96375; J1200; J2930; J1569 ×3

== ENCOUNTER 2020-03-05 10:19 | Observation (INO) | payer MEDICARE ==
[2020-03-05] MEDS ORDERED: HYDROmorphone 0.5 MG/0.5 ML SYRINGE IVP STA (10:30)
[2020-03-05 10:49] LABS: HCT 34.7 % (39.0-53.0); HGB 12.4 gm/dL (13.0-17.5); MCH 33.8 pg (25.0-35.0); MCHC 35.8 g/dL (31.0-37.0); MCV 94.5 fL (80.0-100.0); Mean Platelet Volume 8.5; Platelet Count 172 k/uL (150-450); RBC 3.67 m/uL (4.30-5.90); RDW 13.9 % (11.5-15.5); WBC 34.2 k/uL (3.8-10.6)
--- NOTE | 2020-03-05 10:57 | ED ---
General Adult HPI - General Chief complaint: Extremity Problem,Nontraumatic Stated complaint: Fall, Leg Pain Source: family, EMS, RN notes reviewed Mode of arrival: EMS Limitations: no limitations - History of Present Illness Initial comments: 74-year-old male with a past medical history of cancer, diabetes mellitus, GERD, hypertension presents to the emergency department for a chief complaint of fall. Patient states about a week ago he fell on the left knee and hit has been painful in his leg since that time. However today patient was going to get in his car in his left leg gave out because of the pain and patient slowly lowered himself down. Patient did not hit his head. Patient is complaining about 8 out of 10 pain in the left hip femur area.states he cannot walk on it. Patient states he is actually had some weakness of the left leg since November around . Patient has no other complaints at this time including shortness of breath, chest pain, abdominal pain, nausea or vomiting, headache, or visual changes. - Related Data Home Medications Medication Instructions Recorded Confirmed Lansoprazole [Prevacid] 15 mg PO DAILY 08/06/14 03/04/20 Cetirizine HCl [Zyrtec] 10 mg PO DAILY 05/25/17 03/04/20 Lisinopril [Zestril] 40 mg PO DAILY 05/25/17 03/04/20 Montelukast Sodium [Singulair] 10 mg PO HS 05/25/17 03/04/20 Ibuprofen [Motrin] 800 mg PO DAILY PRN 08/13/18 03/04/20 Pioglitazone [Actos] 45 mg PO DAILY 08/13/18 03/04/20 Previous Rx's Medication Instructions Recorded Fluticasone Nasal [place] [Flonase 2 spr EA NOSTRIL DAILY PRN #1 10/27/16 Nasal [place]] bottle Allergies Allergy/AdvReac Type Severity Reaction Status Date / Time amoxicillin [From Augmentin] Allergy Rash/Hives Verified 03/05/20 10:29 clavulanic acid Allergy Rash/Hives Verified 03/05/20 10:29 [From Augmentin] Review of Systems ROS Statement: Those systems with pertinent positive or pertinent negative responses have been documented in the HPI. ROS Other: All systems not noted in ROS Statement are negative. Past Medical History Past Medical History: Cancer, Diabetes Mellitus, GERD/Reflux, Hypertension, Osteoarthritis (OA) Additional Past Medical History / Comment(s): NIDDM type II, 1999 LEUKEMIA (CLL-remission), sinus problems, seasonal allergies, tinnitis bilaterally, OA hands, R wrist carpal tunnel, past fx with L elbow, R rotator cuff tendon problems, L rotator cuff tear. History of Any Multi-Drug Resistant Organisms: None Reported Past Surgical History: Orthopedic Surgery Additional Past Surgical History / Comment(s): LEFT HAND thumb tendon repair. Past Anesthesia/Blood Transfusion Reactions: No Reported Reaction Past Psychological History: No Psychological Hx Reported Smoking Status: Never smoker Past Alcohol Use History: None Reported Past Drug Use History: None Reported - Past Family History Father Family Medical History: CVA/TIA Additional Family Medical History / Comment(s): Father at the age of 85yrs. Mother Family Medical History: Diabetes Mellitus Additional Family Medical History / Comment(s): Mother at the age of 90yrs. General Exam Limitations: no limitations General appearance: alert, in no apparent distress Head exam: Present: atraumatic, normocephalic, normal inspection Eye exam: Present: normal appearance, PERRL, EOMI. Absent: scleral icterus, conjunctival injection, periorbital swelling ENT exam: Present: normal exam, mucous membranes moist Neck exam: Present: normal inspection, full ROM. Absent: tenderness, meningismus, lymphadenopathy Respiratory exam: Present: normal lung sounds bilaterally. Absent: respiratory distress, wheezes, rales, rhonchi, stridor Cardiovascular Exam: Present: regular rate, normal rhythm, normal heart sounds. Absent: systolic murmur, diastolic murmur, rubs, gallop, clicks GI/Abdominal exam: Present: soft, normal bowel sounds. Absent: distended, tenderness, guarding, rebound, rigid Extremities exam: Present: tenderness (Tenderness to the lateral proximal left leg. There is no ecchymosis confusion. Skin exam is normal.), normal capillary refill (Capillary refill is less than 2 seconds, PT pulses 2+ on exam. Feet are warm bilaterally), other (Sensation is intact and left lower extremity). Absent: full ROM (Pain with movement of the left hip. Range of motion is limited by this.), pedal edema, joint swelling, calf tenderness Course Vital Signs 03/05/20 10:22 Temperature 98.0 F Pulse Rate 76 Respiratory 18 Rate Blood Pressure 173/76 O2 Sat by Pulse 100 Oximetry - Reevaluation(s) Reevaluation #1: 03/05/20 10:59 Patient was placed in a c-collar however this was removed by NEXUS criteria. Medical Decision Making - Medical Decision Making X-rays of the pelvis and femur and knee show no fracture or dislocation. CT of the left hip showed severe arthropathy without acute fracture. Patient has significant tenderness to the lateral aspect of the leg. He has pain with lifting the leg. He does have some weakness although I believe this is secondary to pain. He was also evaluated by Dr. Dominguez at bedside who agrees. NV Assessment is intact in the left lower extremity. I did attempt initially patient twice after 3 different kinds of pain medication and he is unable to him today because the pain is causing him to feel like his leg is going to give out. Patient has a high fall risk. I discussed this case with Dr. Torres now who will accept this admission and requests ultrasound of the left leg to rule out DVT. [facility] was consulted as patient did have a surgery of the shoulder by Dr. Stevenson in the past couple years. - Lab Data Result diagrams: 03/05/20 10:33 03/05/20 10:33 Lab Results 03/05/20 03/05/20 03/05/20 Range/Units 10:33 10:33 10:33 WBC 34.2 H (3.8-10.6) k/uL RBC 3.67 L (4.30-5.90) m/uL Hgb 12.4 L (13.0-17.5) gm/dL Hct 34.7 L (39.0-53.0) % MCV 94.5 (80.0-100.0) fL MCH 33.8 (25.0-35.0) pg MCHC 35.8 (31.0-37.0) g/dL RDW 13.9 (11.5-15.5) % Plt Count 172 (150-450) k/uL Neutrophils % (Manual) 12 % Lymphocytes % (Manual) 86 % Monocytes % (Manual) 2 % Neutrophils # (Manual) 4.10 (1.3-7.7) k/uL Lymphocytes # (Manual) 29.41 H (1.0-4.8) k/uL Monocytes # (Manual) 0.68 (0-1.0) k/uL Nucleated RBCs 0 (0-0) /100 WBC Manual Slide Review Performed Poikilocytosis (manual Present Sodium 137 (137-145) mmol/L Potassium 3.4 L (3.5-5.1) mmol/L Chloride 103 (98-107) mmol/L Carbon Dioxide 27 (22-30) mmol/L Anion Gap 7 mmol/L BUN 21 H (9-20) mg/dL Creatinine 0.84 (0.66-1.25) mg/dL Est GFR (CKD-EPI)AfAm >90 (>60 ml/min/1.73 sqM) Est GFR (CKD-EPI)NonAf 88 (>60 ml/min/1.73 sqM) Glucose 118 H (74-99) mg/dL Calcium 9.7 (8.4-10.2) mg/dL Magnesium 2.0 (1.6-2.3) mg/dL Total Bilirubin 0.8 (0.2-1.3) mg/dL AST 21 (17-59) U/L ALT 18 (4-49) U/L Alkaline Phosphatase 82 (38-126) U/L Total Protein 7.8 (6.3-8.2) g/dL Albumin 4.1 (3.5-5.0) g/dL Disposition Clinical Impression: Left leg pain, Unable to ambulate Disposition: ADMITTED IP TO THIS [facility] Condition: Fair Is patient prescribed a controlled substance at d/c from ED?: No Referrals: Edgard Schneider DO [Primary Care Provider] - 1-2 days Time of Disposition: 15:11
[2020-03-05 10:58] LABS: ALT 18 U/L (4-49); AST 21 U/L (17-59); African American GFR (CKD) >90 (>60 ml/min/1.73 sqM); Albumin 4.1 g/dL (3.5-5.0); Alkaline Phosphatase 82 U/L (38-126); Anion Gap 7 mmol/L; Blood Urea Nitrogen 21 mg/dL (9-20); Calcium 9.7 mg/dL (8.4-10.2); Carbon Dioxide 27 mmol/L (22-30); Chloride 103 mmol/L (98-107); Glucose 118 mg/dL (74-99); Non-African American GFR(CKD) 88 (>60 ml/min/1.73 sqM); Potassium 3.4 mmol/L (3.5-5.1); Sodium 137 mmol/L (137-145); Total Bilirubin 0.8 mg/dL (0.2-1.3); Total Protein 7.8 g/dL (6.3-8.2)
--- NOTE | 2020-03-05 11:19 | XR ---
AP pelvis, left femur, left knee HISTORY: Trauma and pain Single frontal view the pelvis, 4 views of the knee, frontal and lateral views of the left femur on 6 images Pelvis: Degenerative disc changes are noted in the lower lumbar spine. Bilateral hip show osteoarthri tic change with joint space loss and marginal spurring. Subchondral sclerosis is noted. There is kristin deling the femoral heads. There are vascular calcifications within the pelvis. The left femur shows no fracture or dislocation. Atherosclerotic vascular calcifications are present within the left lower extremity. The left knee shows chondrocalcinosis. Mild spurring present in the medial compartment, there is mild tricompartmental joint space loss. No evident joint effusion. IMPRESSION: No fracture or dislocation.
[2020-03-05 11:34] LABS: Lymphocytes # (M) 29.41 k/uL (1.0-4.8); Monocytes # (M) 0.68 k/uL (0-1.0); Neutrophils % (M) 12 %; Nucleated Red Blood Cells 0 /100 WBC (0-0); Poikilocytosis (M) Present; Total Cells Counted 100
--- NOTE | 2020-03-05 12:16 | CT ---
EXAMINATION TYPE: CT hip LT wo con DATE OF EXAM: 03/05/2020 COMPARISON: X-ray 03/05/2020 HISTORY: Fall, Lt hip pain CT DLP: 459.4 mGycm Automated exposure control for dose reduction was used. FINDINGS: There is severe arthropathy of the hip joint. Hypertrophic spurring noted. Cystic geodes are seen inv olving the femoral head and acetabulum. Correlate for femoral acetabular impingement. No acute fracture or dislocation. Vascular calcifications are noted. Prostate gland is enlarged. IMPRESSION: SEVERE ARTHROPATHY. NO ACUTE FRACTURE.
[2020-03-05] MEDS ORDERED: KETOROLAC 30 MG/ML 1 ML VIAL IVP STA (13:05)
[2020-03-05] MEDS ORDERED: SODIUM CHLORIDE 0.9% 1,000 ML IV STA (13:05)
[2020-03-05] MEDS ORDERED: ORPHENADRINE 30 MG/ML 2 ML VIAL IVP STA (13:05)
[2020-03-05] MEDS ORDERED: POTASSIUM CHLORIDE ER 20 MEQ TAB.ER PO STA (13:06)
[2020-03-05] MEDS ORDERED: ACETAMINOPHEN TAB 325 MG TAB PO PRN (15:07)
[2020-03-05] MEDS ORDERED: NALOXONE 0.4 MG/ML 1 ML VIAL IV PRN (15:07)
[2020-03-05] MEDS ORDERED: HYDROmorphone 0.5 MG/0.5 ML SYRINGE IVP PRN (15:07)
--- NOTE | 2020-03-05 15:54 | US ---
EXAMINATION TYPE: US venous doppler duplex LE LT DATE OF EXAM: 03/05/2020 3:12 PM COMPARISON: NONE CLINICAL HISTORY: 74-year-old male pain. Left leg pain SIDE PERFORMED: Left TECHNIQUE: The lower extremity deep venous system is examined utilizing real time linear array sonog jose eduardo with graded compression, doppler sonography and color-flow sonography. FINDINGS: VESSELS IMAGED: External Iliac Vein (EIV) Common Femoral Vein Deep Femoral Vein Greater Saphenous Vein * Femoral Vein Popliteal Vein Small Saphenous Vein * Proximal Calf Veins (* superficial vessels) Left Leg: Negative for DVT IMPRESSION: No evidence for DVT within the left lower extremity imaged from the groin to the upper calf.
[2020-03-05] MEDS: SODIUM CHLORIDE 0.9% 1,000 ML IV SCH (17:05)
[2020-03-05] MEDS ORDERED: ALPRAZolam 0.25 MG TAB PO PRN (17:45)
[2020-03-05 17:50] LABS: Glucose,Whole Blood 104 mg/dL (75-99)
[2020-03-05 18:06] LABS: C Reactive Protein <5.0 mg/L (<10.0); Uric Acid 4.2 mg/dL (3.5-8.5)
[2020-03-05] MEDS: methylPREDNISolone SOD SUCCI 125 MG/2 ML VIAL IV SCH ×2 (18:21→23:59)
--- NOTE | 2020-03-05 18:36 | HP ---
HISTORY AND PHYSICAL DATE OF SERVICE: 03/05/2020 CHIEF COMPLAINTS: Fall and left leg pain and inability to ambulate. Gait dysfunction. HISTORY OF PRESENT ILLNESS: This 74-year-old gentleman with a past medical history of diabetes, GERD, hypertension, history of DJD, history of leukemia, CLL in remission, seasonal allergies, being followed by Dr. Schneider in the outpatient setting, apparently fell and the left knee. The patient was complaining of pain ever since on the knee and in the lower part of the thigh. The patient apparently avoided hitting his head on the concrete. The patient came to [facility] and was admitted for further evaluation and treatment. The patient has had multiple x-rays, including femur x-ray, and also hip CT scan that showed severe arthropathy but no fracture. The femur x-rays also showed no fracture or dislocation. The patient is being closely monitored. Orthopedic evaluation is in progress at this time. There is no history of any fever, rigor or chills. No history of headache, loss of consciousness, seizures. The patient was recently started on insulin in the outpatient setting. PAST MEDICAL HISTORY: History of diabetes mellitus, history of GERD, hypertension, DJD, history of leukemia. HOME MEDICATIONS: 1. Zyrtec 10 daily. 2. Singulair 10 mg daily. 3. Zestril. 4. Fluticasone nasal spray. 5. Insulin. ALLERGIES: AUGMENTIN, CLAVULANIC ACID. FAMILY HISTORY: History of CVA, TIA in the family. SOCIAL HISTORY: No history of smoking. No history of alcohol intake. REVIEW OF SYSTEMS: ENT: No diminished hearing. No diminished vision. CARDIOVASCULAR SYSTEM: No angina, palpitations. RESPIRATORY SYSTEM: No cough, hemoptysis. GI: No nausea, vomiting. : No dysuria or retention. NERVOUS SYSTEM: No numbness, weakness. ALLERGY/IMMUNOLOGY: No asthma, hayfever. MUSCULOSKELETAL: As mentioned earlier. HEMATOLOGY/ONCOLOGY: No history of anemia. ENDOCRINE: As mentioned earlier. CONSTITUTIONAL: As mentioned earlier. DERMATOLOGY: Negative. RHEUMATOLOGY: Negative. PSYCHIATRY: As mentioned earlier. PHYSICAL EXAMINATION: The patient is alert and oriented x3. Pulse 63, blood pressure 160/74, respiration 18, temperature 97.8, pulse ox 97% on room air. HEENT: Conjunctivae normal. NECK: No jugular venous distention. CARDIOVASCULAR SYSTEM: S1, S2 muffled. RESPIRATORY SYSTEM: Breath sounds diminished at the bases. No rhonchi. No crackles. ABDOMEN: Soft, non-tender. No mass palpable. LEGS: Status post fall as well as some tenderness in the right knee joint as well as right lower part of the thigh. NERVOUS SYSTEM: Higher functions as mentioned earlier. Moves all 4 limbs. No focal motor or sensory deficit. LYMPHATICS: No lymph node palpable in neck, axillae or groin. SKIN: No ulcer, rash, bleeding. JOINTS: As noted. LAB: WBC 34.2, hemoglobin 12.4. Sodium 137, potassium 3.4. ASSESSMENT: 1. Fall and significant right lower thigh and right knee joint pain with severe gait dysfunction. 2. 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 3. 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 4. Hypokalemia. 5. Diabetes mellitus, type 2. 6. Gastroesophageal reflux disease. 7. Hypertension. 8. History of degenerative joint disease. 9. FULL CODE. RECOMMENDATIONS AND DISCUSSION: In this 74-year-old gentleman who presented with multiple complex medical issues, we will monitor the patient closely, continue the current medications. Initiate the home medications. Symptomatic treatment for the pain. Monitor creatinine closely. IV fluids for dehydration correction. Orthopedic evaluation. I would also recommend a CT scan of the lower part of the thigh and knee. We will follow the patient closely. A copy of this dictation is being forwarded to Dr. Schneider, who is the primary physician. AMANDA / LEVONN: [id number] / MTDD
--- NOTE | 2020-03-05 18:45 | CT ---
EXAMINATION TYPE: CT knee LT wo con DATE OF EXAM: 03/05/2020 COMPARISON: 1 02/14/2020 HISTORY: Fall, pain above left knee. CT DLP: 765.8 mGycm Automated exposure control for dose reduction was used. TECHNIQUE: Unenhanced CT of the left knee was performed without intravenous contrast, limiting evalua tion of the vasculature. Three-D reformatted images were obtained in bone algorithm and submitted for review. These are created on a separate workstation. FINDINGS: There is increased density in the posterior left medial femoral condyle and opposing surface of the m edial tibial plateau. Small osteophyte is seen of the weightbearing surface of the lateral femoral co ndyle on coronal image 30. No acute fracture of the left knee is seen. No patellar dislocation. Sever e atherosclerosis. No lipohemarthrosis seen to suggest fracture. Small popliteal cyst identified. IMPRESSION: NO ACUTE FRACTURE OR DISLOCATION OF THE LEFT KNEE HOWEVER THERE IS OPPOSING SURFACE SCLEROSIS OF THE MEDIAL FEMORAL CONDYLE AND MEDIAL TIBIAL PLATEAU. OSSEOUS CONTUSION SHOULD BE CONSIDERED AND COULD BE CONFIRMED WITH MRI OF THE LEFT KNEE.
[2020-03-05 19:55] LABS: Glucose,Whole Blood 139 mg/dL (75-99)
[2020-03-05] MEDS: INSULIN ASPART (NovoLOG) 100 UNIT/ML VIAL SQ SCH (20:10)
[2020-03-05] MEDS: HEPARIN SODIUM,PORCINE 5,000 UNIT/ML 1 ML VIAL SQ SCH (20:10)
[2020-03-05] MEDS: MONTELUKAST 10 MG TAB PO SCH (20:10)
[2020-03-06] MEDS: SODIUM CHLORIDE 0.9% 1,000 ML IV SCH ×3 (01:44→12:04)
[2020-03-06 04:45] LABS: Hemoglobin A1C 6.1 % (4.0-6.0)
[2020-03-06] MEDS: methylPREDNISolone SOD SUCCI 125 MG/2 ML VIAL IV SCH ×3 (05:44→17:44)
[2020-03-06 06:48] LABS: HCT 34.5 % (39.0-53.0); HGB 11.9 gm/dL (13.0-17.5); MCHC 34.6 g/dL (31.0-37.0); MCV 98.2 fL (80.0-100.0); Mean Platelet Volume 8.2; Platelet Count 131 k/uL (150-450); RBC 3.51 m/uL (4.30-5.90); RDW 13.7 % (11.5-15.5); WBC 23.9 k/uL (3.8-10.6)
[2020-03-06 07:11] LABS: Glucose,Whole Blood 252 mg/dL (75-99)
[2020-03-06] MEDS: INSULIN ASPART (NovoLOG) 100 UNIT/ML VIAL SQ SCH ×4 (07:19→20:31)
[2020-03-06] MEDS: HEPARIN SODIUM,PORCINE 5,000 UNIT/ML 1 ML VIAL SQ SCH ×2 (07:19→20:30)
[2020-03-06] MEDS: PANTOPRAZOLE 40 MG TABLET PO SCH (07:20)
[2020-03-06] MEDS: LISINOPRIL 20 MG TAB PO SCH (07:20)
[2020-03-06] MEDS: LORATADINE 10 MG TAB PO SCH (07:20)
[2020-03-06 07:28] LABS: African American GFR (CKD) >90 (>60 ml/min/1.73 sqM); Anion Gap 8 mmol/L; Blood Urea Nitrogen 20 mg/dL (9-20); Calcium 8.8 mg/dL (8.4-10.2); Carbon Dioxide 23 mmol/L (22-30); Chloride 106 mmol/L (98-107); Glucose 257 mg/dL (74-99); Non-African American GFR(CKD) >90 (>60 ml/min/1.73 sqM); Potassium 4.5 mmol/L (3.5-5.1); Sodium 137 mmol/L (137-145)
[2020-03-06 08:03] LABS: Lymphocytes # (M) 21.03 k/uL (1.0-4.8); Neutrophils # (M) 2.87 k/uL (1.3-7.7); Neutrophils % (M) 12 %; Nucleated Red Blood Cells 0 /100 WBC (0-0); Total Cells Counted 100
--- NOTE | 2020-03-06 11:23 | P.CNOR ---
History of Present Illness - [facility] Consult date: 03/06/20 Consult reason: joint pain History of present illness: Patient is a 74-year-old male who presented to [facility] yesterday with regards to left lower extremity pain and weakness. Apparently the patient had a fall about 2 weeks ago which involved his left knee and left hip. He also had a fall around 's Day to the same side. Since his most recent fall he's noticed discomfort in the left thigh region, also around his knee and hip area. He noticed had a very difficult time getting into his car today lifting that leg. He denies any previous surgery involving the left lower extremity. He has seen Dr. Stevenson in the past with regards to his right shoulder. He does have a history of CLL which is in remission. He statesHe has felt slightly dehydrated over the last few days also. He normally utilizes knee braces when he is working around the house. Currently he denies any headaches, lightheadedness, chest pain, shortness of breath, fever or chills, lower extremity paresthesias. He has no other orthopedic complaints. Review of Systems Constitutional: Reports as per HPI Past Medical History Past Medical History: Cancer, Diabetes Mellitus, GERD/Reflux, Hypertension, Osteoarthritis (OA) Additional Past Medical History / Comment(s): NIDDM type II, 1999 LEUKEMIA (CLL- remission), sinus problems, seasonal allergies, tinnitis bilaterally, OA hands, R wrist carpal tunnel, past fx with L elbow, R rotator cuff tendon problems, L rotator cuff tear. History of Any Multi-Drug Resistant Organisms: None Reported Past Surgical History: Orthopedic Surgery Additional Past Surgical History / Comment(s): LEFT HAND thumb tendon repair. Past Anesthesia/Blood Transfusion Reactions: No Reported Reaction Past Psychological History: No Psychological Hx Reported Additional Psychological History / Comment(s): Pt resides with his spouse. He is independent. Smoking Status: Never smoker Past Alcohol Use History: None Reported Past Drug Use History: None Reported - Past Family History Father Family Medical History: CVA/TIA Additional Family Medical History / Comment(s): Father at the age of 85yrs. Mother Family Medical History: Diabetes Mellitus Additional Family Medical History / Comment(s): Mother at the age of 90yrs. Medications and Allergies Home Medications Medication Instructions Recorded Confirmed Type Fluticasone Nasal [place] [Flonase 2 spr EA NOSTRIL DAILY PRN #1 10/27/16 03/05/20 Rx Nasal [place]] bottle Cetirizine HCl [Zyrtec] 10 mg PO DAILY 05/25/17 03/05/20 History Lisinopril [Zestril] 40 mg PO DAILY 05/25/17 03/05/20 History Montelukast Sodium [Singulair] 10 mg PO HS 05/25/17 03/05/20 History ALPRAZolam [Xanax] 0.25 mg PO BID PRN 03/05/20 03/05/20 History Ibuprofen 600 mg PO Q8H PRN 03/05/20 03/05/20 History Insulin NPH Hum/Reg Insulin Hm 15 units SQ BID 03/05/20 03/05/20 History [Relion Novolin 70-30 Flexpen] Omeprazole Magnesium [PriLOSEC OTC] 20 mg PO DAILY PRN 03/05/20 03/05/20 History Allergies Allergy/AdvReac Type Severity Reaction Status Date / Time amoxicillin [From Augmentin] Allergy Rash/Hives Verified 03/05/20 20:06 clavulanic acid Allergy Rash/Hives Verified 03/05/20 20:06 [From Augmentin] Physical Examination Left lower extremity: No obvious effusion surrounding the knee, there is no lesions or areas of erythe ma or soft tissue swelling He is able to extend fully and flex past 90 minimal discomfort No pain with palpation surrounding the medial and lateral joint line No tenderness with palpation over the patella Calf is soft, no tenderness with palpation Logroll maneuver of the hip reproduces no pain, internal and external rotation of the hip when flexed reproduces no groin pain. His range of motion is limited No significant tenderness with palpation over the greater trochanter Plantar flexion, dorsiflexion, EHL, FHL are intact Sensory exam to light touch throughout the extremity is intact Results - Labs Labs: Abnormal Lab Results - Last 24 Hours (Table) 03/05/20 03/05/20 03/05/20 Range/Units 10:33 10:33 17:48 WBC (3.8-10.6) k/uL RBC (4.30-5.90) m/uL Hgb (13.0-17.5) gm/dL Hct (39.0-53.0) % Plt Count (150-450) k/uL Lymphocytes # (Manual) 29.41 H (1.0-4.8) k/uL Glucose (74-99) mg/dL POC Glucose (mg/dL) 104 H (75-99) mg/dL Hemoglobin A1c 6.1 H (4.0-6.0) % 03/05/20 03/06/20 03/06/20 Range/Units 19:54 05:39 05:39 WBC 23.9 H (3.8-10.6) k/uL RBC 3.51 L (4.30-5.90) m/uL Hgb 11.9 L (13.0-17.5) gm/dL Hct 34.5 L (39.0-53.0) % Plt Count 131 L (150-450) k/uL Lymphocytes # (Manual) 21.03 H (1.0-4.8) k/uL Glucose 257 H (74-99) mg/dL POC Glucose (mg/dL) 139 H (75-99) mg/dL Hemoglobin A1c (4.0-6.0) % 03/06/20 Range/Units 07:08 WBC (3.8-10.6) k/uL RBC (4.30-5.90) m/uL Hgb (13.0-17.5) gm/dL Hct (39.0-53.0) % Plt Count (150-450) k/uL Lymphocytes # (Manual) (1.0-4.8) k/uL Glucose (74-99) mg/dL POC Glucose (mg/dL) 252 H (75-99) mg/dL Hemoglobin A1c (4.0-6.0) % H & H 03/05/20 03/06/20 Range/Units 10:33 05:39 Hgb 12.4 L 11.9 L (13.0-17.5) gm/dL Hct 34.7 L 34.5 L (39.0-53.0) % Result Diagrams: 03/06/20 05:39 03/06/20 05:39 - Diagnostic results Hip x-ray: report reviewed, image reviewed Hip CT: report reviewed, image reviewed Knee x-ray: report reviewed, image reviewed Knee CT: report reviewed, image reviewed Assessment and Plan Assessment: Left knee pain Left knee contusion Left knee mild osteoarthritis Left hip severe osteoarthritis Plan: Multiple x-rays and CT images were reviewed along with the reports. Images of the knee and hip demonstrated no acute fractures or dislocations. There is evidence of osteoarthritis mainly along the medial compartment of the knee. Severe osteoarthritic changes are noted both on the acetabular and femoral head of the left hip. Plan: I was able to discuss the case, including with physical exam findings and donovan ging studies might attending Dr. Stevenson. No orthopedic surgical intervention recommended at this time Likely referred pain in the thigh due to both his hip arthritis and his knee arthritic symptoms, most likely both being aggravated from the recent falls I believe his limited motion and weakness in the left lower extremity is due to the severe hip arthritis Recommended [id number] Tylenol and anti-inflammatories as needed Patient will follow-up in the outpatient setting in the next 2 weeks if symptoms continue to discuss further treatment options We'll be available for any further questions regarding this patient
[2020-03-06 11:54] LABS: Glucose,Whole Blood 346 mg/dL (75-99)
[2020-03-06] MEDS ORDERED: FLUTICASONE 50MCG/SPRAY NASAL 16GM EA NOSTRIL PRN (15:17)
[2020-03-06] MEDS ORDERED: PANTOPRAZOLE 40 MG TABLET PO PRN (15:17)
[2020-03-06 17:18] LABS: Glucose,Whole Blood 347 mg/dL (75-99)
[2020-03-06] MEDS: INSULN ASP PRT/INSULIN ASPART 100 UNIT/ML 10 ML VIAL SQ SCH (17:42)
--- NOTE | 2020-03-06 17:46 | PN ---
PROGRESS NOTE DATE OF SERVICE: 03/06/2020 This 74-year-old gentleman admitted with significant fall and gait dysfunction also complained of pain in the hip and knee pain at this time. Orthopedics evaluated the patient closely. No fractures are determined. CT scan of the knee was also done which showed some contusion. Otherwise patient being closely monitored at this time. No chest pain. No palpitations. No fever. REVIEW OF SYSTEMS: CARDIOVASCULAR SYSTEM: No angina or palpitations. RESPIRATORY SYSTEM: As mentioned earlier. GI: As mentioned earlier. no dysuria. MUSCULOSKELETAL: As mentioned earlier. CURRENT MEDICATIONS: 1. Tylenol p.r.n. 2. Ponce 5 mg q.6 p.r.n. 3. Heparin. 4. Dilaudid. 5. Zestril. 6. Claritin. 7. Solu-Medrol 60 IV q.6 hours. 8. Singular. 9. Narcan. 10.Protonix. PHYSICAL EXAM: Alert and oriented times three. Pulse 69. Blood pressure 138/60, respirations 16, temperature 98 degrees. HEENT is conjunctivae normal. Oral mucosa moist. NECK is no jugular venous distention. No carotid bruit. No lymph node enlargement. CARDIOVASCULAR: S1, S2. RESPIRATION: Breath sounds diminished in the bases. Scattered rhonchi. No crackles. ABDOMEN: Soft, nontender. LEGS: Significant pain and swelling and limitation on the left hip and left knee joints. Some significant wasting of the left thigh muscles also present. Otherwise no other nervous system abnormality. SKIN: No ulcer, rash or bleeding. LABS: WBC 23.9, hemoglobin 11.9, platelets are 131, glucose 259. ASSESSMENT: 1. Fall and significant left lower thigh and left knee joint pain as well as severe gait dysfunction. 2. 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 3. 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 4. Hypokalemia. 5. Diabetes mellitus type 2. 6. Gastroesophageal reflux disease. 7. Hypertension. 8. Gait dysfunction. 9. History of degenerative joint disease. 10.Anemia. 11.Mild thrombocytopenia. 12.Diabetes mellitus type 2 with hyperglycemia. RECOMMENDATIONS AND DISCUSSION: This 74-year-old gentleman who presented with multiple complex medical issues, we will monitor the patient closely. Continue the current medications, symptomatic treatment. Otherwise, at this time, I recommend a small dose of Lantus at this time. Otherwise, continue the rest of medications. Guarded prognosis because of multiple complex medical issues. Further recommendations to follow. MMODL / IJN: [id number] /
[2020-03-06 20:28] LABS: Glucose,Whole Blood 342 mg/dL (75-99)
[2020-03-06] MEDS: MONTELUKAST 10 MG TAB PO SCH (20:32)
[2020-03-07] MEDS: methylPREDNISolone SOD SUCCI 125 MG/2 ML VIAL IV SCH ×5 (00:50→23:29)
[2020-03-07 07:01] LABS: Glucose,Whole Blood 284 mg/dL (75-99)
[2020-03-07] MEDS: HEPARIN SODIUM,PORCINE 5,000 UNIT/ML 1 ML VIAL SQ SCH ×2 (07:45→20:14)
[2020-03-07] MEDS: LORATADINE 10 MG TAB PO SCH (07:45)
[2020-03-07] MEDS: LISINOPRIL 20 MG TAB PO SCH (07:45)
[2020-03-07] MEDS: INSULIN ASPART (NovoLOG) 100 UNIT/ML VIAL SQ SCH ×4 (07:45→21:26)
[2020-03-07] MEDS: PANTOPRAZOLE 40 MG TABLET PO SCH (07:45)
[2020-03-07] MEDS: INSULN ASP PRT/INSULIN ASPART 100 UNIT/ML 10 ML VIAL SQ SCH ×2 (07:46→17:39)
[2020-03-07] MEDS: HYDROcodone/APAP 5-325MG 1 EACH TAB PO PRN ×2 (07:54→20:14)
[2020-03-07 08:47] LABS: African American GFR (CKD) >90 (>60 ml/min/1.73 sqM); Anion Gap 10 mmol/L; Blood Urea Nitrogen 21 mg/dL (9-20); Calcium 9.1 mg/dL (8.4-10.2); Carbon Dioxide 22 mmol/L (22-30); Chloride 104 mmol/L (98-107); Glucose 270 mg/dL (74-99); Non-African American GFR(CKD) >90 (>60 ml/min/1.73 sqM); Potassium 4.1 mmol/L (3.5-5.1); Sodium 136 mmol/L (137-145)
[2020-03-07 09:39] LABS: HCT 36.5 % (39.0-53.0); HGB 12.6 gm/dL (13.0-17.5); MCH 33.8 pg (25.0-35.0); MCHC 34.4 g/dL (31.0-37.0); MCV 98.2 fL (80.0-100.0); Mean Platelet Volume 8.5; Platelet Count 135 k/uL (150-450); RBC 3.72 m/uL (4.30-5.90); RDW 13.6 % (11.5-15.5); WBC 33.3 k/uL (3.8-10.6)
[2020-03-07 10:56] LABS: Lymphocytes # (M) 26.64 k/uL (1.0-4.8); Neutrophils # (M) 6.66 k/uL (1.3-7.7); Neutrophils % (M) 20 %; Nucleated Red Blood Cells 0 /100 WBC (0-0); Total Cells Counted 100
[2020-03-07 11:42] LABS: Glucose,Whole Blood 284 mg/dL (75-99)
--- NOTE | 2020-03-07 17:10 | PN ---
PROGRESS NOTE DATE OF SERVICE: 03/07/2020 This 74-year-old gentleman who was admitted with severe gait dysfunction, also had knee joint difficulties on the left side. The knee CAT scan did not show any fractures. Orthopedic Surgery is following the patient closely. No chest pain. No palpitations. No fever. PHYSICAL EXAM: Alert and oriented x3. Pulse 55, blood pressure 140/70, respirations 16, temperature 97.9, pulse ox 96% on room air. HEENT is conjunctivae normal. NECK: No JVD. CARDIOVASCULAR: S1, S2 muffled. RESPIRATIONS: Breath sounds diminished in the bases. No rhonchi. No crackles. ABDOMEN: Soft, nontender. LEGS: Left knee joint movements are painful, wasted. NERVOUS SYSTEM: No focal deficits. LABS: WBC 13.2, hemoglobin 12.6. Uric acid 4.2. ASSESSMENT: 1. Fall and significant left lower thigh and left knee joint pain as well as severe gait dysfunction and wasting. 2. Increased WBC secondary to chronic lymphocytic leukemia. 3. 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 4. Hypokalemia. 5. Diabetes mellitus type 2. 6. History of gastroesophageal reflux disease. 7. Hypertension.. 8. History of gait dysfunction. 9. History of degenerative joint disease. 10.History of anemia. 11.History of mild thrombocytopenia. 12.Diabetes mellitus type 2 with hyperglycemia. RECOMMENDATIONS AND DISCUSSION: Recommend to continue current medications, symptomatic treatment. PT/OT evaluation. Guarded prognosis. Possible ECF rehab. Further recommendations to follow. MMODL / IJN: [id number] /
[2020-03-07 17:21] LABS: Glucose,Whole Blood 279 mg/dL (75-99)
[2020-03-07] MEDS: MONTELUKAST 10 MG TAB PO SCH (20:15)
[2020-03-07 20:59] LABS: Glucose,Whole Blood 305 mg/dL (75-99)
[2020-03-08 05:08] LABS: Glucose,Whole Blood 282 mg/dL (75-99)
[2020-03-08] MEDS: methylPREDNISolone SOD SUCCI 125 MG/2 ML VIAL IV SCH ×2 (05:58→12:45)
[2020-03-08 07:19] LABS: HCT 36.9 % (39.0-53.0); HGB 12.2 gm/dL (13.0-17.5); MCH 32.4 pg (25.0-35.0); MCHC 33.1 g/dL (31.0-37.0); MCV 97.7 fL (80.0-100.0); Mean Platelet Volume 8.5; Platelet Count 121 k/uL (150-450); RBC 3.77 m/uL (4.30-5.90); RDW 13.3 % (11.5-15.5); WBC 30.2 k/uL (3.8-10.6)
[2020-03-08 07:28] LABS: African American GFR (CKD) >90 (>60 ml/min/1.73 sqM); Anion Gap 8 mmol/L; Blood Urea Nitrogen 23 mg/dL (9-20); Calcium 8.8 mg/dL (8.4-10.2); Carbon Dioxide 24 mmol/L (22-30); Chloride 103 mmol/L (98-107); Glucose 288 mg/dL (74-99); Non-African American GFR(CKD) >90 (>60 ml/min/1.73 sqM); Potassium 4.4 mmol/L (3.5-5.1); Sodium 135 mmol/L (137-145)
[2020-03-08 07:28] LABS: Glucose,Whole Blood 309 mg/dL (75-99)
[2020-03-08] MEDS: PANTOPRAZOLE 40 MG TABLET PO SCH (07:50)
[2020-03-08] MEDS: HEPARIN SODIUM,PORCINE 5,000 UNIT/ML 1 ML VIAL SQ SCH (07:50)
[2020-03-08] MEDS: LISINOPRIL 20 MG TAB PO SCH (07:50)
[2020-03-08] MEDS: LORATADINE 10 MG TAB PO SCH (07:50)
[2020-03-08] MEDS: INSULIN ASPART (NovoLOG) 100 UNIT/ML VIAL SQ SCH ×2 (07:52→12:45)
[2020-03-08] MEDS: INSULN ASP PRT/INSULIN ASPART 100 UNIT/ML 10 ML VIAL SQ SCH ×2 (07:52→12:45)
[2020-03-08] MEDS: HYDROcodone/APAP 5-325MG 1 EACH TAB PO PRN (07:57)
[2020-03-08 08:10] LABS: Anisocytosis (M) Present; Lymphocytes # (M) 24.46 k/uL (1.0-4.8); Neutrophils # (M) 5.74 k/uL (1.3-7.7); Neutrophils % (M) 19 %; Nucleated Red Blood Cells 0 /100 WBC (0-0); Total Cells Counted 200
[2020-03-08 12:36] LABS: Glucose,Whole Blood 252 mg/dL (75-99)
[2020-03-08 12:48] VITALS: BP 132/70; PULSE 57; RESP 20; TEMP 97.8
--- NOTE | 2020-03-08 15:25 | P.DS ---
Providers Date of admission: 03/05/20 15:10 Expected date of discharge: 03/08/20 Attending physician: Delfina Torres Consults: 03/05/20 15:08 Consult Physician Routine Consulting Provider: Kannan Stevenson Consult Reason/Comments: L Leg pain Do you want consulting provider notified?: Yes [facility] Course: Final diagnosis Fall and significant left lower thigh and left knee joint pain as well as severe gait dysfunction and wasting Increased WBC secondary to chronic lymphocytic leukemia Anemia, normocytic secondary leukemia Hypokalemia Diabetes mellitus type 2 with hyperglycemia History of gastroesophageal reflux disease Hypertension History of gait dysfunction History of degenerative joint disease history of anemia history of mild thrombocytopenia Full code Discharge disposition Patient is being discharged in a stable condition with guarded prognosis to [facility] for continued PT/OT therapy. Patient will follow-up with Dr. Schneider in the outpatient setting upon discharge. Patient instructed follow-up with Dr. Stevenson in the outpatient setting in 2-3 weeks as needed as well. Patient will continue on a prednisone taper upon discharge. Total time taken is 35 minutes. History of present illness This is a 74-year-old male who was recently admitted with severe gait dysfunction also had knee joint difficulties of the left side and was being closely monitored. Patient underwent CAT scan of the knee which did not show any fractures and orthopedic surgery evaluated the patient recommending no fer gical interventions at this time and to continue with pain management along with physical therapy. Patient instructed to follow-up with Dr. Stevenson in the outpatient setting in 2-3 weeks as needed. Patient will continue on a prednisone taper along with pain management in the outpatient setting. Patient does have a history of diabetes mellitus and will need continued blood sugar monitoring before meals at bedtime and treat accordingly with sliding scale. Recommended repeat labs in 2-3 days. Patient will be going to [facility] for continued PT/OT therapy today. Currently no reports of chest pain, shortness of breath, or palpitations. Patient is afebrile. No reports of nausea vomiting and patient is tolerating diet. On exam vital signs are stable. Temp is 97.8F, pulse is 57, respirations are 20, blood pressure is 132/70, oxygen saturation is 97% on room air. Cardio S1, S2 are muffled. Respiratory system shows diminished breath sounds at the bases with no wheezing or rhonchi noted. Abdomen is soft and nontender. Nervous system shows diffuse weakness. Please refer to medication reconciliation sheet for a list of medications. Patient Condition at Discharge: Stable Plan - Discharge Summary Discharge Rx Participant: No New Discharge Prescriptions: New INSULIN ASPART (NovoLOG) [NovoLOG (formulary)] 0 unit SQ ACHS vial Acetaminophen Tab [Tylenol] 650 mg PO Q6HR PRN tab PRN Reason: Mild Pain Or Fever > 100.5 HYDROcodone/APAP 5-325MG [[place] 5-325] 1 each PO Q6HR PRN #6 tab PRN Reason: Pain predniSONE 10 mg PO DIRECTED #30 tab Continue Fluticasone Nasal [place] [Flonase Nasal [place]] 2 spr EA NOSTRIL DAILY PRN #1 bottle PRN Reason: Congestion Montelukast Sodium [Singulair] 10 mg PO HS Lisinopril [Zestril] 40 mg PO DAILY Cetirizine HCl [Zyrtec] 10 mg PO DAILY Insulin NPH Hum/Reg Insulin Hm [Relion Novolin 70-30 Flexpen] 15 units SQ BID Omeprazole Magnesium [PriLOSEC OTC] 20 mg PO DAILY PRN PRN Reason: acid reflux ALPRAZolam [Xanax] 0.25 mg PO BID PRN #6 tab PRN Reason: Anxiety Discontinued Ibuprofen 600 mg PO Q8H PRN PRN Reason: Pain Discharge Medication List Fluticasone Nasal [place] [Flonase Nasal [place]] 2 spr EA NOSTRIL DAILY PRN #1 bottle 10/27/16 [Rx] Cetirizine HCl [Zyrtec] 10 mg PO DAILY 05/25/17 [History] Lisinopril [Zestril] 40 mg PO DAILY 05/25/17 [History] Montelukast Sodium [Singulair] 10 mg PO HS 05/25/17 [History] Insulin NPH Hum/Reg Insulin Hm [Relion Novolin 70-30 Flexpen] 15 units SQ BID 03/05/20 [History] Omeprazole Magnesium [PriLOSEC OTC] 20 mg PO DAILY PRN 03/05/20 [History] ALPRAZolam [Xanax] 0.25 mg PO BID PRN #6 tab 03/08/20 [Rx] Acetaminophen Tab [Tylenol] 650 mg PO Q6HR PRN tab 03/08/20 [Rx] HYDROcodone/APAP 5-325MG [[place] 5-325] 1 each PO Q6HR PRN #6 tab 03/08/20 [Rx] INSULIN ASPART (NovoLOG) [NovoLOG (formulary)] 0 unit SQ ACHS vial 03/08/20 [Rx] predniSONE 10 mg PO DIRECTED #30 tab 03/08/20 [Rx] Follow up Appointment(s)/Referral(s): Kannan Stevenson DO [Doctor of Osteopathic Medicine] - 2 Weeks Edgard Schneider DO [Primary Care Provider] - 1-2 days Ambulatory/Diagnostic Orders: Basic Metabolic Panel [LAB.AMB] Time Frame: 2 Days, Location: None Selected Complete Blood Count w/diff [LAB.AMB] Time Frame: 2 Days, Location: None Selected Patient Instructions/Handouts: Type 2 Diabetes in Adults: New Diagnosis (DC) Activity/Diet/Wound Care/Special Instructions: Patient is going to [facility] Activity as tolerated Continue monitoring blood sugars before meals at bedtime and treat accordingly with sliding scale Continue current diet Continue working with PT/OT therapy Follow-up with orthopedic surgery in the outpatient setting Follow-up with primary care provider upon discharge Discharge Disposition: TRANSFER TO SNF/F
== END 2020-03-08 16:10 ==
LOC: EC 10:19 → 5NMEDONC 15:10 → INTOOBSV 15:10 → 5NMEDONC 15:57 → UNDODISIN 03-08 16:10
PROVIDERS: ADMIT Internal Medicine; ATTEND Internal Medicine
DX: M25.562 Pain in left knee (principal); R26.9 Unspecified abnormalities of gait and mobility; C91.11 Chronic lymphocytic leukemia of B-cell type in remission; D69.6 Thrombocytopenia, unspecified; E11.65 Type 2 diabetes mellitus with hyperglycemia; D63.0 Anemia in neoplastic disease; E86.0 Dehydration; M79.652 Pain in left thigh; Z03.818 Encounter for observation for suspected exposure to other biological agents ruled out; J30.2 Other seasonal allergic rhinitis; M11.262 Other chondrocalcinosis, left knee; I10 Essential (primary) hypertension; M17.12 Unilateral primary osteoarthritis, left knee; M16.12 Unilateral primary osteoarthritis, left hip; M19.042 Primary osteoarthritis, left hand; M19.041 Primary osteoarthritis, right hand; E87.6 Hypokalemia; M62.562 Muscle wasting and atrophy, not elsewhere classified, left lower leg; K21.9 Gastro-esophageal reflux disease without esophagitis; H93.13 Tinnitus, bilateral; W19.XXXA Unspecified fall, initial encounter; Z79.899 Other long term (current) drug therapy; Z98.890 Other specified postprocedural states; Z79.4 Long term (current) use of insulin; Z88.0 Allergy status to penicillin; Z91.048 Other nonmedicinal substance allergy status; Z91.81 History of falling; Z83.3 Family history of diabetes mellitus; Z82.3 Family history of stroke
CPT/HCPCS: 96376 ×4; 96361 ×4; 96372 ×4; 96375 ×3; 96374; 99285; 36415; 97161; 97166; 80053; 80048 ×3; 85652; 83735; 84550; 85025 ×4; 86140; 83036; 72170; 73552; 73564; 93971; 73700 ×2; 96365; 96366; G0378 ×4; U0003; J1200; J1644 ×4; J2360; J2930 ×5; J1885; J1569 ×3; J1170 ×2

== ENCOUNTER 2020-03-20 21:43 | Emergency (ER) | payer MEDICARE ==
[2020-03-20 21:52] VITALS: RESP 18; TEMP 98
[2020-03-20] MEDS ORDERED: HYDROcodone/APAP 5-325MG 1 EACH TAB PO STA (22:52)
--- NOTE | 2020-03-20 23:50 | XR ---
EXAMINATION TYPE: XR tibia fibula LT DATE OF EXAM: 03/20/2020 COMPARISON: NONE HISTORY: Fall. Pain. TECHNIQUE: 4 views FINDINGS: The tibia and fibula appear intact. Knee joint and ankle joint appear intact. I see no evid ence of a fracture. IMPRESSION: Negative left tibia and fibula exam. No fracture seen. Thin lucent line seen in the anter ior cortex of the anterior lower tibia is probably nutrient channel and should BE correlated with the physical exam.
--- NOTE | 2020-03-20 23:51 | ED ---
General Adult HPI - General Chief complaint: Extremity Problem,Nontraumatic Stated complaint: Knee Pain Time Seen by Provider: 03/20/20 21:59 Source: patient, EMS, RN notes reviewed, old records reviewed Mode of arrival: EMS Limitations: no limitations - History of Present Illness Initial comments: 74-year-old male patient presents with chief complaint of left knee pain. Patient reports that he was admitted to the hospital she had a fall approximately 2 weeks ago. Reports a history of having pain in his left knee. States that he does have some sinus pain on the proximal aspect of the tibia. Reports otherwise in the hospital he did have a fall where he landed on his left knee. Patient states that he was discharged from the patient revealed patient history of did not give him a prescription for pain medication. Denies any trauma to head or neck. Denies any other complaints. States that the pain is very front of the knee. Systemic: Pt denies fatigue, fever/chills, rash. Pt denies weakness, night sweats, weight loss. Neuro: Pt denies headache, visual disturbances, syncope or pre-syncope. HEENT: Pt denies ocular discharge or irritation, otalgia, rhinorrhea, pharyngitis or notable lymphadenopathy. Cardiopulmonary: Pt denies chest pain, SOB, heart palpitations, dyspnea on exertion. Abdominal/GI: Pt denies abdominal pain, n/v/d. : Pt denies dysuria, burning w/ urination, frequency/urgency. Denies new onset urinary or bowel incontinence. MSK: Pt denies loss of strength or function in extremities. Neuro: Pt denies new onset weakness, paresthesias. - Related Data Home Medications Medication Instructions Recorded Confirmed Cetirizine HCl [Zyrtec] 10 mg PO DAILY 05/25/17 03/05/20 Lisinopril [Zestril] 40 mg PO DAILY 05/25/17 03/05/20 Montelukast Sodium [Singulair] 10 mg PO HS 05/25/17 03/05/20 Insulin NPH Hum/Reg Insulin Hm 15 units SQ BID 03/05/20 03/05/20 [Relion Novolin 70-30 Flexpen] Omeprazole Magnesium [PriLOSEC OTC] 20 mg PO DAILY PRN 03/05/20 03/05/20 Previous Rx's Medication Instructions Recorded Fluticasone Nasal [place] [Flonase 2 spr EA NOSTRIL DAILY PRN #1 10/27/16 Nasal [place]] bottle ALPRAZolam [Xanax] 0.25 mg PO BID PRN #6 tab 03/08/20 Acetaminophen Tab [Tylenol] 650 mg PO Q6HR PRN tab 03/08/20 HYDROcodone/APAP 5-325MG [[place] 1 each PO Q6HR PRN #6 tab 03/08/20 5-325] INSULIN ASPART (NovoLOG) [NovoLOG 0 unit SQ ACHS vial 03/08/20 (formulary)] predniSONE 10 mg PO DIRECTED #30 tab 03/08/20 Allergies Allergy/AdvReac Type Severity Reaction Status Date / Time amoxicillin [From Augmentin] Allergy Rash/Hives Verified 03/05/20 20:06 clavulanic acid Allergy Rash/Hives Verified 03/05/20 20:06 [From Augmentin] Review of Systems ROS Statement: Those systems with pertinent positive or pertinent negative responses have been documented in the HPI. ROS Other: All systems not noted in ROS Statement are negative. Past Medical History Past Medical History: Cancer, Diabetes Mellitus, GERD/Reflux, Hypertension, Osteoarthritis (OA) Additional Past Medical History / Comment(s): NIDDM type II, 1999 LEUKEMIA (CLL- remission), sinus problems, seasonal allergies, tinnitis bilaterally, OA hands, R wrist carpal tunnel, past fx with L elbow, R rotator cuff tendon problems, L rotator cuff tear, left knee pain History of Any Multi-Drug Resistant Organisms: None Reported Past Surgical History: Orthopedic Surgery Additional Past Surgical History / Comment(s): LEFT HAND thumb tendon repair. Past Anesthesia/Blood Transfusion Reactions: No Reported Reaction Past Psychological History: No Psychological Hx Reported Smoking Status: Never smoker Past Alcohol Use History: None Reported Past Drug Use History: None Reported - Past Family History Father Family Medical History: CVA/TIA Additional Family Medical History / Comment(s): Father at the age of 85yrs. Mother Family Medical History: Diabetes Mellitus Additional Family Medical History / Comment(s): Mother at the age of 90yrs. General Exam - General Exam Comments Initial Comments: Constitutional: NAD, AOX3, Pt has pleasant affect. HEENT: NC/AT, trachea midline, neck supple, no lymphadenopathy. Posterior pharynx non erythematous, without exudates. External ears appear normal, without discharge. Mucous membranes moist. Eyes PERRLA, EOM intact. There is no scleral icterus. No pallor noted. Cardiopulmonary: RRR, no murmurs, rubs or gallops, no JVD noted. Lungs CTAB in anterior and posterior xiong. No peripheral edema. Abdominal exam: Abdomen soft and non-distended. Abdomen non-tender to palpation in all 4 quadrants. Bowel sounds active in LLQ. No hepatosplenomegaly. No ecchymosis Neuro: CN II-XII grossly intact. No nuchal rigidity. No raccon eyes, no sanchez sign, no hemotympanum. No cervical spinal tenderness. MSK: Mild amount of tenderness to left anterior knee region. No posterior tenderness. Full active range of motion intact. Neurovascularly intact. No skin changes. No tibial tenderness is noted. No posterior calf tenderness. Homans sign negative. Bilaterally. Posterior tibialis pulses intact bilat erally. +2. Limitations: no limitations Course Vital Signs 03/20/20 03/21/20 21:46 00:37 Temperature 98 F Pulse Rate 67 60 Respiratory 18 18 Rate Blood Pressure 152/70 155/75 O2 Sat by Pulse 99 100 Oximetry Medical Decision Making - Medical Decision Making 74-year-old male patient presents ED for evaluation of knee pain. Denies any posterior pain. Denies any other complaints. Patient will signs are stable, afebrile. Physical exam displayed mild mild tenderness to left anterior knee. Plain film of the knee was performed as negative. Plain film of left tibia- fibula was obtained did not display any acute fracture. Discussed with patient possibility for mobilization. Patient believes that if he were immobilized he would be at high risk for fall. Patient be discharged as appointment with outpatient orthopedic surgeon and will return to ER if condition worsens. Case discussed with Dr. Bonilla. Disposition Clinical Impression: Knee pain Disposition: HOME SELF-CARE Condition: Stable Additional Instructions: Follow-up with primary care provider and orthopedic consult tomorrow. Call Dr. Stevenson and see if you can be seen earlier. If not you may try to call Dr. Stapleton who is full fashioned garment knitter at the hospital today. Return to ER if condition worsens in any way. Is patient prescribed a controlled substance at d/c from ED?: No Referrals: Edgard Schneider DO [Primary Care Provider] - 1-2 days Jono Stapleton MD [STAFF PHYSICIAN] - 1-2 days
--- NOTE | 2020-03-21 00:20 | XR ---
EXAMINATION TYPE: XR knee 4V LT DATE OF EXAM: 03/20/2020 COMPARISON: 03/05/2020 HISTORY: Fall. Pain. TECHNIQUE: 4 views FINDINGS: I see no fracture nor dislocation. Joint spaces are fairly normal. There is no sign of join t effusion. IMPRESSION: Negative left knee exam. No change.
[2020-03-21 00:37] VITALS: BP 155/75; PULSE 60
[2020-03-21] MEDS ORDERED: ACET/COD 300 MG/30 MG STARTER PACK 6 TAB BTL PO STA (01:36)
== END 2020-03-21 02:07 | disposition home or self-care (01) ==
LOC: EC 21:43
DX: M25.562 Pain in left knee (principal); K21.9 Gastro-esophageal reflux disease without esophagitis; E11.9 Type 2 diabetes mellitus without complications; I10 Essential (primary) hypertension; M19.042 Primary osteoarthritis, left hand; M19.041 Primary osteoarthritis, right hand; Z79.4 Long term (current) use of insulin; Z79.899 Other long term (current) drug therapy; Z88.1 Allergy status to other antibiotic agents; Z98.890 Other specified postprocedural states; Z85.6 Personal history of leukemia
CPT/HCPCS: 99284

== ENCOUNTER 2020-04-19 12:37 | Emergency (ER) | payer MEDICARE ==
[2020-04-19 13:00] VITALS: RESP 18
--- NOTE | 2020-04-19 14:18 | US ---
EXAMINATION TYPE: US venous doppler duplex LE LT DATE OF EXAM: 04/19/2020 2:08 PM COMPARISON: NONE CLINICAL HISTORY: pain, swelling. Edema SIDE PERFORMED: Left TECHNIQUE: The lower extremity deep venous system is examined utilizing real time linear array sonog jose eduardo with graded compression, doppler sonography and color-flow sonography. VESSELS IMAGED: External Iliac Vein (EIV) Common Femoral Vein Deep Femoral Vein Greater Saphenous Vein * Femoral Vein Popliteal Vein Small Saphenous Vein * Proximal Calf Veins (* superficial vessels Left Leg: Negative for DVT IMPRESSION: No evidence for DVT.
--- NOTE | 2020-04-19 14:39 | ED ---
Lower Extremity Injury HPI - General Chief Complaint: Extremity Injury, Lower Stated Complaint: Leg swelling Time Seen by Provider: 04/19/20 13:01 Source: patient, family Mode of arrival: wheelchair Limitations: no limitations - History of Present Illness Initial Comments: Patient is a 75-year-old male presenting to the emergency Department with complaints of the left lower extremity pain that has been ongoing for 2 months now. Patient states he had a slip and fall back in early March and has had been having pain in his lower extremity since then. He has had multiple imaging on his left knee which has no acute findings. He states he has been following up with orthopedics and is set to have an MRI of his lower back in a few weeks. He has been taking pain medicine at home. He denies recent fever or chills. He denies any history of blood clots. He is not on a blood thinner. He has no further complaints at this time. Upon arrival to the ER, his vitals are stable. - Related Data Home Medications Medication Instructions Recorded Confirmed Cetirizine HCl [Zyrtec] 10 mg PO DAILY 05/25/17 03/05/20 Lisinopril [Zestril] 40 mg PO DAILY 05/25/17 03/05/20 Montelukast Sodium [Singulair] 10 mg PO HS 05/25/17 03/05/20 Insulin NPH Hum/Reg Insulin Hm 15 units SQ BID 03/05/20 03/05/20 [Relion Novolin 70-30 Flexpen] Omeprazole Magnesium [PriLOSEC OTC] 20 mg PO DAILY PRN 03/05/20 03/05/20 Previous Rx's Medication Instructions Recorded Fluticasone Nasal [place] [Flonase 2 spr EA NOSTRIL DAILY PRN #1 10/27/16 Nasal [place]] bottle ALPRAZolam [Xanax] 0.25 mg PO BID PRN #6 tab 03/08/20 Acetaminophen Tab [Tylenol] 650 mg PO Q6HR PRN tab 03/08/20 HYDROcodone/APAP 5-325MG [[place] 1 each PO Q6HR PRN #6 tab 03/08/20 5-325] INSULIN ASPART (NovoLOG) [NovoLOG 0 unit SQ ACHS vial 03/08/20 (formulary)] predniSONE 10 mg PO DIRECTED #30 tab 03/08/20 Allergies Allergy/AdvReac Type Severity Reaction Status Date / Time amoxicillin [From Augmentin] Allergy Rash/Hives Verified 03/05/20 20:06 clavulanic acid Allergy Rash/Hives Verified 03/05/20 20:06 [From Augmentin] Review of Systems ROS Statement: Those systems with pertinent positive or pertinent negative responses have been documented in the HPI. ROS Other: All systems not noted in ROS Statement are negative. Past Medical History Past Medical History: Cancer, Diabetes Mellitus, GERD/Reflux, Hypertension, Osteoarthritis (OA) Additional Past Medical History / Comment(s): NIDDM type II, 1998 LEUKEMIA (CLL-remission), sinus problems, seasonal allergies, tinnitis bilaterally, OA hands, R wrist carpal tunnel, past fx with L elbow, R rotator cuff tendon problems, L rotator cuff tear, left knee pain History of Any Multi-Drug Resistant Organisms: None Reported Past Surgical History: Orthopedic Surgery Additional Past Surgical History / Comment(s): LEFT HAND thumb tendon repair. Past Anesthesia/Blood Transfusion Reactions: No Reported Reaction Past Psychological History: No Psychological Hx Reported Smoking Status: Never smoker Past Alcohol Use History: None Reported Past Drug Use History: None Reported - Past Family History Father Family Medical History: CVA/TIA Additional Family Medical History / Comment(s): Father at the age of 85yrs. Mother Family Medical History: Diabetes Mellitus Additional Family Medical History / Comment(s): Mother at the age of 90yrs. General Exam - General Exam Comments Initial Comments: GENERAL: Well-appearing, well-nourished and in no acute distress. HEAD: Atraumatic, normocephalic. EYES: Pupils equal round and reactive to light, extraocular movements intact, sclera anicteric, conjunctiva are normal. ENT: TMs normal, nares patent, oropharynx clear without exudates. Moist mucous membranes. NECK: Normal range of motion, supple without lymphadenopathy or JVD. LUNGS: Breath sounds clear to auscultation bilaterally and equal. No wheezes rales or rhonchi. HEART: Regular rate and rhythm without murmurs, rubs or gallops. ABDOMEN: Soft, nontender, normoactive bowel sounds. No guarding, no rebound. No masses appreciated. : Deferred EXTREMITIES: Normal range of motion of bilateral lower extremities. Sensation is equal and bilateral. Patient is 5 out of 5 strength. Patient does have some mild bilateral lower ankle swelling. He is neurovascular intact bilaterally. There is no overlying erythema or signs of infection. No clubbing or cyanosis. NEUROLOGICAL: Cranial nerves II through XII grossly intact. Normal speech, normal gait. PSYCH: Normal mood, normal affect. SKIN: Warm, Dry, normal turgor, no rashes or lesions noted. Limitations: no limitations Course Vital Signs 04/19/20 12:56 Temperature 98.1 F Pulse Rate 62 Respiratory 18 Rate Blood Pressure 174/69 O2 Sat by Pulse 99 Oximetry Medical Decision Making - Medical Decision Making Patient is a 75-year-old male here for left leg pain and is chronic in nature. He has slip and fall approximately 2 months ago. He has had multiple imaging done. He denies history of blood clots. He continues to have pain. His vitals are stable here. His exam is unremarkable except for some mild bilateral ankle swelling. He states he was a very active person before he fell 2 months ago, and now has not been moving around very much. I did do an ultrasound of his left lower extremity which revealed no evidence of DVT. I discussed with patient that the swelling is most likely due to his activity. I recommended to try elevation of his legs above his heart level as well as some ankle pumps throughout the day. Patient is stable for discharge. He will follow with his orthopedic doctor. Patient is in agreement with this plan of care. Return parameters were discussed with the patient he verbalizes understanding. Case discussed with Dr. Patel. Disposition Clinical Impression: Left leg pain, Swelling of both ankles Disposition: HOME SELF-CARE Condition: Stable Instructions (If sedation given, give patient instructions): Leg Pain (ED) Additional Instructions: Please return to the Emergency Department if symptoms worsen or any other concerns. Follow-up with orthopedic doctor as discussed. Continue with already prescribed medications. Recommend pillow in between knees when sleeping on the side or rolled up underneath the knees is sleeping on the back. Try heating pad on the area as well. Is patient prescribed a controlled substance at d/c from ED?: No Referrals: Edgard Schneider DO [Primary Care Provider] - 1-2 days
[2020-04-19 15:01] VITALS: BP 167/70; PULSE 66; TEMP 98
== END 2020-04-19 15:00 | disposition home or self-care (01) ==
LOC: EC 12:37
DX: M79.605 Pain in left leg (principal); M79.89 Other specified soft tissue disorders; E11.9 Type 2 diabetes mellitus without complications; K21.9 Gastro-esophageal reflux disease without esophagitis; I10 Essential (primary) hypertension; Z88.1 Allergy status to other antibiotic agents; Z79.4 Long term (current) use of insulin; Z88.0 Allergy status to penicillin; Z79.899 Other long term (current) drug therapy
CPT/HCPCS: 99283

== ENCOUNTER 2020-04-26 21:39 | Observation (INO) | payer MEDICARE ==
[2020-04-26] MEDS ORDERED: MORPHINE SULFATE 4 MG/ML SYRINGE IVP STA (22:26)
[2020-04-26 22:49] LABS: INR 1.1 (<1.2); Partial Thromboplastin Time 22.2 sec (22.0-30.0); Prothrombin Time 11.1 sec (9.0-12.0)
[2020-04-26 22:51] LABS: ALT 13 U/L (4-49); AST 19 U/L (17-59); African American GFR (CKD) >90 (>60 ml/min/1.73 sqM); Albumin 4.1 g/dL (3.5-5.0); Alkaline Phosphatase 69 U/L (38-126); Anion Gap 9 mmol/L; Blood Urea Nitrogen 15 mg/dL (9-20); Calcium 9.3 mg/dL (8.4-10.2); Carbon Dioxide 24 mmol/L (22-30); Chloride 102 mmol/L (98-107); Creatine Kinase 50 U/L (55-170); Glucose 170 mg/dL (74-99); Magnesium 1.9 mg/dL (1.6-2.3); Non-African American GFR(CKD) >90 (>60 ml/min/1.73 sqM); Potassium 4.1 mmol/L (3.5-5.1); Sodium 135 mmol/L (137-145); Total Bilirubin 0.8 mg/dL (0.2-1.3)
--- NOTE | 2020-04-26 23:01 | XR ---
EXAMINATION TYPE: XR shoulder complete LT DATE OF EXAM: 04/26/2020 COMPARISON: None HISTORY: Shoulder pain TECHNIQUE: 3 views FINDINGS: There is some spurring at the glenohumeral joint. There is spurring at the AC joint. I see no fracture nor dislocation. IMPRESSION: There is some osteoarthritis. No fracture seen.
[2020-04-26 23:03] LABS: HGB 12.8 gm/dL (13.0-17.5); MCH 33.2 pg (25.0-35.0); MCHC 35.5 g/dL (31.0-37.0); Platelet Count 105 k/uL (150-450); RBC 3.86 m/uL (4.30-5.90); RDW 13.1 % (11.5-15.5)
[2020-04-26 23:06] LABS: MCV 93.3 fL (80.0-100.0)
--- NOTE | 2020-04-26 23:14 | CT ---
EXAMINATION TYPE: CT brain wo con DATE OF EXAM: 04/26/2020 COMPARISON: 05/25/2017 HISTORY: Bilateral leg pain and weakness. CT DLP: 1007 mGycm Automated exposure control for dose reduction was used. Multiple axial sections were obtained of the brain without contrast. There is diffuse cerebral atroph y. There is no mass effect nor midline shift. There is no sign of intracranial hemorrhage. The calvar ium is intact. There is no evidence of cerebral edema. IMPRESSION: Cerebral atrophy. No acute intracranial abnormality. No change.
--- NOTE | 2020-04-26 23:24 | CT ---
EXAMINATION TYPE: CT thor lumbar spine wo con DATE OF EXAM: 04/26/2020 COMPARISON: None HISTORY: Bilateral leg pain and weakness. CT DLP: 807.3 mGycm Automated exposure control for dose reduction was used. Multiple axial sections were obtained from the level of T1-S3 vertebra without contrast. FINDINGS: Thoracic and lumbar vertebra have normal alignment. I see no compression fracture. There is mild spur ring of the endplates. There is no evidence of thoracic or lumbar paraspinal mass. The sacroiliac jeny nts are intact. There is hypertrophic mild facet arthropathy in the lower lumbar spine. There is no e vidence of focal bone destruction. There is posterior disc bulging and ligamentum flavum thickening with moderately severe spinal stenos is at L3-4. There is mild spinal stenosis at L4-5. There is mild lateral recess stenosis at L2-3. The re is lateral recess stenosis at L1-2. IMPRESSION: Multilevel spondylotic changes. Moderately severe spinal stenosis at L3-4. Mild relative spinal steno sis in the remainder of the lumbar spine. No fracture seen.
[2020-04-26 23:41] LABS: Eosinophils # (M) 0.52 k/uL (0-0.7); Monocytes # (M) 0.26 k/uL (0-1.0); Neutrophils # (M) 5.72 k/uL (1.3-7.7); Neutrophils % (M) 22 %; Nucleated Red Blood Cells 0 /100 WBC (0-0); Total Cells Counted 100
[2020-04-26 23:42] LABS: Hypochromasia (M) Present
[2020-04-26] MEDS ORDERED: NALOXONE 0.4 MG/ML 1 ML VIAL IV PRN (23:56)
--- NOTE | 2020-04-26 23:56 | ED ---
Weakness HPI - General Chief complaint: Weakness Stated complaint: Weakness Time Seen by Provider: 04/26/20 21:50 Source: patient, EMS Mode of arrival: EMS Limitations: physical limitation - History of Present Illness Initial comments: Patient is a 75-year-old male with past history of CLL who presents emergency Department with reported weakness. The patient sustained a fall the beginning of March. States since then he has suffered from left leg pain. He has been evaluated multiple times in the emergency department, and was recently admitted at [facility] last week for 5 days. Significant imaging of the left lower extremity demonstrates no acute findings. Patient reports to continuing to be weak to the point where he can no longer stand from a chair. He has reported weakness in his bilateral lower trauma however the left is worse than the right. Patient reports that tonight he was attempting to stand but he fell and hit his left shoulder. He is right-hand dominant. States that he cannot raise his left shoulder higher than 90. Denies any numbness or tingling in the extremity. Patient did not hit his head. He has followed with Dr. Jaffe in office. Is scheduled for an MRI of his back in May. He was also sent to rehab however states that this did not help him. Patient denies any chest pain or shortness of breath. Denies visual changes or speech difficulties. No history of CVA. No other alleviating, precipitating or modifying factors - Related Data Home Medications Medication Instructions Recorded Confirmed Cetirizine HCl [Zyrtec] 10 mg PO DAILY 05/25/17 04/26/20 Montelukast Sodium [Singulair] 10 mg PO HS 05/25/17 04/26/20 lisinopriL [Zestril] 40 mg PO HS 05/25/17 04/26/20 Insulin NPH Hum/Reg Insulin Hm 17 units SQ QAM 03/05/20 04/26/20 [Relion Novolin 70-30 Flexpen] Omeprazole Magnesium [PriLOSEC OTC] 20 mg PO DAILY PRN 03/05/20 04/26/20 Ibuprofen [Advil] 800 mg PO Q4H PRN 04/26/20 04/26/20 Previous Rx's Medication Instructions Recorded Fluticasone Nasal [place] [Flonase 2 spr EA NOSTRIL DAILY PRN #1 10/27/16 Nasal [place]] bottle predniSONE 5 mg PO DAILY 13 Days #36 tab 04/27/20 ALPRAZolam [Xanax] 0.25 mg PO BID PRN #6 tab 04/29/20 Folic Acid 1 mg PO DAILY@1200 tab 04/29/20 HYDROcodone/APAP 5-325MG [[place] 1 each PO Q6HR PRN #6 tab 04/29/20 5-325] INSULIN ASPART (NovoLOG) [NovoLOG 0 unit SQ ACHS vial 04/29/20 (formulary)] Multivitamins, Thera [Multivitamin 1 each PO DAILY@1200 tab 04/29/20 (formulary)] Thiamine [Vitamin B-1] 100 mg PO DAILY@1200 tab 04/29/20 Allergies Allergy/AdvReac Type Severity Reaction Status Date / Time amoxicillin [From Augmentin] Allergy Rash/Hives Verified 04/26/20 23:19 clavulanic acid Allergy Rash/Hives Verified 04/26/20 23:19 [From Augmentin] Review of Systems ROS Statement: Those systems with pertinent positive or pertinent negative responses have been documented in the HPI. ROS Other: All systems not noted in ROS Statement are negative. Past Medical History Past Medical History: Cancer, Diabetes Mellitus, GERD/Reflux, Hypertension, Osteoarthritis (OA) Additional Past Medical History / Comment(s): NIDDM type II, 1999 LEUKEMIA (CLL- remission), sinus problems, seasonal allergies, tinnitis bilaterally, OA hands, R wrist carpal tunnel, past fx with L elbow, R rotator cuff tendon problems, L rotator cuff tear, left knee pain History of Any Multi-Drug Resistant Organisms: None Reported Past Surgical History: Orthopedic Surgery Additional Past Surgical History / Comment(s): LEFT HAND thumb tendon repair. Past Anesthesia/Blood Transfusion Reactions: No Reported Reaction Past Psychological History: No Psychological Hx Reported Past Alcohol Use History: None Reported Past Drug Use History: None Reported - Past Family History Father Family Medical History: CVA/TIA Additional Family Medical History / Comment(s): Father at the age of 85yrs. Mother Family Medical History: Diabetes Mellitus Additional Family Medical History / Comment(s): Mother at the age of 90yrs. General Exam Limitations: physical limitation General appearance: alert, in no apparent distress Head exam: Present: atraumatic, normocephalic, normal inspection Eye exam: Present: normal appearance, PERRL, EOMI. Absent: scleral icterus, conjunctival injection, periorbital swelling ENT exam: Present: normal exam, mucous membranes moist Neck exam: Present: normal inspection. Absent: tenderness, meningismus, lymphadenopathy Respiratory exam: Present: normal lung sounds bilaterally. Absent: respiratory distress, wheezes, rales, rhonchi, stridor Cardiovascular Exam: Present: regular rate, normal rhythm, normal heart sounds. Absent: systolic murmur, diastolic murmur, rubs, gallop, clicks GI/Abdominal exam: Present: soft, normal bowel sounds. Absent: distended, tenderness, guarding, rebound, rigid Extremities exam: Present: tenderness, normal capillary refill, other (tenderness to palpation left shoulder. Unable to flex greater than 90 degrees. Intact flexion/extension of elbow/wrist. Normal finger abduction. 2+ pulses all 4 extremities. 4/5 strength left hip flexor. 5/5 knee extensor, ankle and great toe dorsiflexor and foot plantar flexor. 2+ DP and PT pulses. Intact sesation in all 4 extremities). Absent: pedal edema, joint swelling, calf tenderness Back exam: Present: normal inspection Neurological exam: Present: alert, oriented X3, CN II-XII intact Psychiatric exam: Present: normal affect, normal mood Skin exam: Present: warm, dry, intact, normal color. Absent: rash Course Vital Signs 04/26/20 04/26/20 04/27/20 21:51 23:01 00:31 Temperature 98.8 F 98.2 F Pulse Rate 96 78 69 Respiratory 16 18 18 Rate Blood Pressure 177/76 157/76 156/79 O2 Sat by Pulse 100 98 98 Oximetry EKG Findings - EKG Comments: EKG Findings:: EKG demonstrates normal sinus rhythm with ventricular rate of 65. AR interval 136. QRS 80. QTC of 424. No acute ST segment elevations or depressions concerning for ischemic changes Medical Decision Making - Medical Decision Making Upon arrival patient placed into room 1. A thorough history and physical exam was performed. Patient does have notable weakness in the left lower extremity. Graded as 4/5. /he also unable to his left shoulder greater than 90. X-rays of left shoulder performed. I also performed CT of the patient's brain and lumbar spine as he has been suffering from persistent left lower extremity weakness. Patient was given 4 mg of morphine for pain control. Upon reevaluation patient continues to have persistent symptoms. Laboratory studies and imaging are negative. The patient is able to ambulate at home with multiple falls did feel that he with benefit from inpatient admission for which patient did agree to. I discussed case with Dr. Torres who accepted admssion. Patient is currently awaiting to be transferred to the floor - Lab Data Result diagrams: 04/29/20 07:12 04/29/20 07:12 Lab Results 04/26/20 04/26/20 04/26/20 Range/Units 22:36 22:36 22:36 WBC 26.0 H (3.8-10.6) k/uL RBC 3.86 L (4.30-5.90) m/uL Hgb 12.8 L (13.0-17.5) gm/dL Hct 36.0 L (39.0-53.0) % MCV 93.3 D (80.0-100.0) fL MCH 33.2 (25.0-35.0) pg MCHC 35.5 (31.0-37.0) g/dL RDW 13.1 (11.5-15.5) % Plt Count 105 L (150-450) k/uL Neutrophils % (Manual) 22 % Lymphocytes % (Manual) 75 % Monocytes % (Manual) 1 % Eosinophils % (Manual) 2 % Neutrophils # (Manual) 5.72 (1.3-7.7) k/uL Lymphocytes # (Manual) 19.50 H (1.0-4.8) k/uL Monocytes # (Manual) 0.26 (0-1.0) k/uL Eosinophils # (Manual) 0.52 (0-0.7) k/uL Nucleated RBCs 0 (0-0) /100 WBC Manual Slide Review Performed Hypochromasia (manual) Present PT 11.1 (9.0-12.0) sec INR 1.1 (<1.2) APTT 22.2 (22.0-30.0) sec Sodium 135 L (137-145) mmol/L Potassium 4.1 (3.5-5.1) mmol/L Chloride 102 (98-107) mmol/L Carbon Dioxide 24 (22-30) mmol/L Anion Gap 9 mmol/L BUN 15 (9-20) mg/dL Creatinine 0.68 (0.66-1.25) mg/dL Est GFR (CKD-EPI)AfAm >90 (>60 ml/min/1.73 sqM) Est GFR (CKD-EPI)NonAf >90 (>60 ml/min/1.73 sqM) Glucose 170 H (74-99) mg/dL Calcium 9.3 (8.4-10.2) mg/dL Magnesium 1.9 (1.6-2.3) mg/dL Total Bilirubin 0.8 (0.2-1.3) mg/dL AST 19 (17-59) U/L ALT 13 (4-49) U/L Alkaline Phosphatase 69 (38-126) U/L Creatine Kinase 50 L (55-170) U/L Total Protein 6.0 L (6.3-8.2) g/dL Albumin 4.1 (3.5-5.0) g/dL Coronavirus (PCR) (Not Detected) 04/27/20 Range/Units 00:17 WBC (3.8-10.6) k/uL RBC (4.30-5.90) m/uL Hgb (13.0-17.5) gm/dL Hct (39.0-53.0) % MCV (80.0-100.0) fL MCH (25.0-35.0) pg MCHC (31.0-37.0) g/dL RDW (11.5-15.5) % Plt Count (150-450) k/uL Neutrophils % (Manual) % Lymphocytes % (Manual) % Monocytes % (Manual) % Eosinophils % (Manual) % Neutrophils # (Manual) (1.3-7.7) k/uL Lymphocytes # (Manual) (1.0-4.8) k/uL Monocytes # (Manual) (0-1.0) k/uL Eosinophils # (Manual) (0-0.7) k/uL Nucleated RBCs (0-0) /100 WBC Manual Slide Review Hypochromasia (manual) PT (9.0-12.0) sec INR (<1.2) APTT (22.0-30.0) sec Sodium (137-145) mmol/L Potassium (3.5-5.1) mmol/L Chloride (98-107) mmol/L Carbon Dioxide (22-30) mmol/L Anion Gap mmol/L BUN (9-20) mg/dL Creatinine (0.66-1.25) mg/dL Est GFR (CKD-EPI)AfAm (>60 ml/min/1.73 sqM) Est GFR (CKD-EPI)NonAf (>60 ml/min/1.73 sqM) Glucose (74-99) mg/dL Calcium (8.4-10.2) mg/dL Magnesium (1.6-2.3) mg/dL Total Bilirubin (0.2-1.3) mg/dL AST (17-59) U/L ALT (4-49) U/L Alkaline Phosphatase (38-126) U/L Creatine Kinase (55-170) U/L Total Protein (6.3-8.2) g/dL Albumin (3.5-5.0) g/dL Coronavirus (PCR) Not Detected (Not Detected) Disposition Clinical Impression: Left leg pain, Unable to ambulate, Fall, Left shoulder pain Disposition: ADMITTED IP TO THIS [facility] Condition: Stable Is patient prescribed a controlled substance at d/c from ED?: No Decision to Admit Reason: Admit from EC Decision Date: 04/26/20 Decision Time: 23:56
[2020-04-27] MEDS: MORPHINE SULFATE 4 MG/ML SYRINGE IV PRN ×2 (03:39→09:33)
[2020-04-27] MEDS ORDERED: IBUPROFEN 200 MG TAB PO PRN (10:57)
[2020-04-27] MEDS ORDERED: ALPRAZolam 0.25 MG TAB PO PRN (10:57)
[2020-04-27] MEDS ORDERED: FLUTICASONE 50MCG/SPRAY NASAL 16GM EA NOSTRIL PRN (10:57)
[2020-04-27] MEDS ORDERED: HYDROmorphone 0.5 MG/0.5 ML SYRINGE IVP PRN (10:58)
--- NOTE | 2020-04-27 11:17 | XR ---
EXAMINATION TYPE: XR chest 1V portable DATE OF EXAM: 04/27/2020 Comparison: 12/14/2019 Clinical History: 75-year-old male with CHF Findings: Heart upper limits of normal in size. Mild tortuosity of the thoracic aorta. Bony vasculature within normal limits. No consolidation or pleural effusion. Impression: No acute process seen.
[2020-04-27 11:30] LABS: Glucose,Whole Blood 177 mg/dL (75-99)
[2020-04-27 11:53] LABS: Appearance,Urine Clear (Clear); Bilirubin,Urine Negative (Negative); Blood,Urine Negative (Negative); Color,Urine Yellow; Glucose,Urine (UA) Negative (Negative); Ketones,Urine Negative (Negative); Leukocyte Esterase,Urine Negative (Negative); Nitrite,Urine Negative (Negative); Protein,Urine Negative (Negative); Specific Gravity,Urine 1.008 (1.001-1.035); Urobilinogen,Urine <2.0 mg/dL (<2.0)
[2020-04-27] MEDS: THIAMINE 100 MG TAB PO SCH (14:15)
[2020-04-27] MEDS: INSULIN ASPART (NovoLOG) 100 UNIT/ML VIAL SQ SCH ×3 (14:16→20:07)
[2020-04-27] MEDS: MULTIVITAMINS, THERA 1 EACH TAB PO SCH (14:16)
[2020-04-27] MEDS: FOLIC ACID 1 MG TAB PO SCH (14:16)
[2020-04-27] MEDS: INSULN ASP PRT/INSULIN ASPART 100 UNIT/ML 10 ML VIAL SQ SCH (14:16)
[2020-04-27] MEDS: IOPAMIDOL CONTRAST (ORAL USE) VIAL PO PRN ×2 (15:05→16:11)
--- NOTE | 2020-04-27 15:25 | P.CNOR ---
History of Present Illness - [facility] Consult date: 04/27/20 Consult reason: other History of present illness: Patient is a 75-year-old male who was admitted to [facility] yesterday evening with regards to her recent fall and bilateral lower extremity weakness. Patient was evaluated by our orthopedic service 2 months ago with regards to the same issue, he was also having some worsening left knee and left thigh pain at that time. X-rays did demonstrate severe arthritis involving his left hip and mild arthritis involving his left knee. Dr. Stevenson has provided a cortisone shot in his knee, this was done about 3 weeks ago. He also has an MRI ordered for his lumbar spine, this is scheduled for May 13. There was concern over some lumbar issues which were leading to it is likely weakness. Upon arrival to the hospital, computed tomography scan of the lumbar spine did demonstrate severe spinal canal stenosis at L3/L4. There is also other levels of mild spondylitic changes along with mild stenosis present. He was admitted under internal medicine for further workup, orthopedic team was consulted. At his last admission, patient did end up spending 5 days at my would per rehab. He felt he was getting stronger at that time. He states that his legs have continued to be very weak. He has no groin pain he demonstrates at this time. Most of discomfort when he gets it is down the posterior aspects of the legs and the anterior thighs of both legs. The left leg seems to be more symptomatic. He has no other orthopedic complaints at this time. Review of Systems Constitutional: Reports as per [facility] Past Medical History Past Medical History: Cancer, Diabetes Mellitus, GERD/Reflux, Hypertension, Osteoarthritis (OA) Additional Past Medical History / Comment(s): NIDDM type II, 1999 LEUKEMIA (CLL- remission), sinus problems, seasonal allergies, tinnitis bilaterally, OA hands, R wrist carpal tunnel, past fx with L elbow, R rotator cuff tendon problems, L rotator cuff tear, left knee pain History of Any Multi-Drug Resistant Organisms: None Reported Past Surgical History: Orthopedic Surgery Additional Past Surgical History / Comment(s): LEFT HAND thumb tendon repair. Past Anesthesia/Blood Transfusion Reactions: No Reported Reaction Past Psychological History: No Psychological Hx Reported Additional Psychological History / Comment(s): Pt resides with his spouse. He is independent. Smoking Status: Never smoker Past Alcohol Use History: None Reported Past Drug Use History: None Reported - Past Family History Father Family Medical History: CVA/TIA Additional Family Medical History / Comment(s): Father at the age of 85yrs. Mother Family Medical History: Diabetes Mellitus Additional Family Medical History / Comment(s): Mother at the age of 90yrs. Medications and Allergies Home Medications Medication Instructions Recorded Confirmed Type Fluticasone Nasal [place] [Flonase 2 spr EA NOSTRIL DAILY PRN #1 10/27/16 04/26/20 Rx Nasal [place]] bottle Cetirizine HCl [Zyrtec] 10 mg PO DAILY 05/25/17 04/26/20 History Lisinopril [Zestril] 40 mg PO HS 05/25/17 04/26/20 History Montelukast Sodium [Singulair] 10 mg PO HS 05/25/17 04/26/20 History Insulin NPH Hum/Reg Insulin Hm 17 units SQ QAM 03/05/20 04/26/20 History [Relion Novolin 70-30 Flexpen] Omeprazole Magnesium [PriLOSEC OTC] 20 mg PO DAILY PRN 03/05/20 04/26/20 History HYDROcodone/APAP 5-325MG [[place] 1 each PO Q6HR PRN #6 tab 03/08/20 04/26/20 Rx 5-325] ALPRAZolam [Xanax] 0.25 mg PO BID PRN 04/26/20 04/26/20 History Ibuprofen [Advil] 800 mg PO Q4H PRN 04/26/20 04/26/20 History Allergies Allergy/AdvReac Type Severity Reaction Status Date / Time amoxicillin [From Augmentin] Allergy Rash/Hives Verified 04/26/20 23:19 clavulanic acid Allergy Rash/Hives Verified 04/26/20 23:19 [From Augmentin] Physical Examination Left lower extremity: No open lesions or sores present, no significant areas of erythema or soft tissue swelling Walker the hip reproduces minimal discomfort, there is stiffness noted with range of motion Minimal tenderness with palpation along the medial joint line of the knee, there is no palpable effusion. He's stable to varus and valgus Calf is soft, no tenderness with palpation Plantar flexion, dorsiflexion, EHL, FHL are intact There is notable weakness with hip flexion on the left side, also with extension and flexion at the knee, there is minimal strength deficit with plantar flexion and dorsiflexion Sensation to light touch throughout the extremity is intact Results - Labs Labs: Abnormal Lab Results - Last 24 Hours (Table) 04/26/20 04/26/20 04/27/20 Range/Units 22:36 22:36 11:16 WBC 26.0 H (3.8-10.6) k/uL RBC 3.86 L (4.30-5.90) m/uL Hgb 12.8 L (13.0-17.5) gm/dL Hct 36.0 L (39.0-53.0) % Plt Count 105 L (150-450) k/uL Lymphocytes # (Manual) 19.50 H (1.0-4.8) k/uL Sodium 135 L (137-145) mmol/L Glucose 170 H (74-99) mg/dL POC Glucose (mg/dL) 177 H (75-99) mg/dL Creatine Kinase 50 L (55-170) U/L Total Protein 6.0 L (6.3-8.2) g/dL H & H 04/26/20 Range/Units 22:36 Hgb 12.8 L (13.0-17.5) gm/dL Hct 36.0 L (39.0-53.0) % Coagulation 04/26/20 Range/Units 22:36 INR 1.1 (<1.2) Result Diagrams: 04/26/20 22:36 04/26/20 22:36 - Diagnostic results Shoulder x-ray: report reviewed, image reviewed CT Scan - lumbar: report reviewed, image reviewed (Images and reports were reviewed of both lumbar spine and the left shoulder. Images left shoulder demonstrate no fractures or dislocations, evidence of AC joint arthritis and glenohumeral joint arthritis. Please see report of lumbar spine CT for further description) Assessment and Plan Assessment: Left hip osteoarthritis Left knee osteoarthritis Left shoulder AC joint arthritis and glenohumeral arthritis Multiple level spinal canal stenosis, moderate to severe L3-L4 Plan: I was able to discuss the case, including with physical exam findings and imaging studies my attending Dr. Stevenson. No orthopedic surgical intervention recommended at this time. We will continue with conservative measures These measures to include a dose of IV steroids with an oral taper after discharge. Physical therapy evaluation Discussed with the patient to continue utilizing a walker into be very careful when ambulating Our plan is to proceed with the MRI of the spine on May 13, he will then be scheduled to see our orthopedic spine surgeon and later May when he is available. We'll be available for any further questions regarding this patient, please contact us with any questions Time with Patient: Less than 30
--- NOTE | 2020-04-27 15:46 | HP ---
HISTORY AND PHYSICAL CHIEF COMPLAINTS: Weakness and pain of the left hip as well as left shoulder. HISTORY OF PRESENT ILLNESS: This 75-year-old gentleman with a past medical history of multiple medical problems, including history of diabetes, history of GERD, hypertension, history of DJD, history of chronic lymphoid leukemia, apparently in remission, history of DJD, being followed by Dr. Edgard Schneider in the outpatient setting, was recently admitted to [facility] with complaints of severe left lower thigh pain and knee pain. The patient had severe gait dysfunction. The patient was extensively evaluated, including a CT scan. Orthopedics saw the patient and no fracture was visualized. [facility] After rehab the patient apparently had multiple ER visits because of significant pain. The patient apparently fell, also. The patient again had difficulty in walking as well as significant pain and difficulty in ambulation. The patient also reports that he is unable to care for his , which he was able to do. The patient was admitted for further evaluation and treatment. There is no history of any fever, rigor or chills. No history of headache, loss of consciousness, seizures. PAST MEDICAL HISTORY: History of diabetes mellitus, type 2, history of GERD, hypertension, history of DJD, history of chronic lymphoid leukemia. HOME MEDICATIONS: 1. Prilosec OTC 20 mg daily p.r.n. 2. Singulair 10 mg at bedtime. 3. Zestril 40 mg at bedtime. 4. Advil 800 mg q.4 p.r.n. 5. Flonase 2 sprays daily. 6. Zyrtec 10 mg daily. 7. Insulin NPH 70/30, 17 units subcutaneously each morning. 8. Xanax 0.25 b.i.d. p.r.n. 9. [place] 5 mg q.6 p.r.n. ALLERGIES: AUGMENTIN, CLAVULANIC ACID. FAMILY HISTORY: History of CVA, TIA. SOCIAL HISTORY: No history of smoking. No history of alcohol intake. REVIEW OF SYSTEMS: ENT: Diminished hearing. Diminished vision. CARDIOVASCULAR SYSTEM: No angina, palpitations. RESPIRATORY SYSTEM: As mentioned earlier. GI: No nausea, vomiting. : No dysuria or retention. NERVOUS SYSTEM: As mentioned earlier. ALLERGY/IMMUNOLOGY: No asthma, hayfever. MUSCULOSKELETAL: As mentioned earlier. HEMATOLOGY/ONCOLOGY: No history of anemia. ENDOCRINE: Diabetes mellitus. CONSTITUTIONAL: As mentioned earlier. DERMATOLOGY: Negative. RHEUMATOLOGY: Negative. PSYCHIATRY: As mentioned earlier. PHYSICAL EXAMINATION: Patient alert and oriented x3. Pulse 67, blood pressure 123/72, respirations 16, temperature 97.9, pulse ox 96% on room air. HEENT: Conjunctivae normal. Oral mucosa moist. NECK: No jugular venous distention. No carotid bruit. No lymph node enlargement. CARDIOVASCULAR SYSTEM: S1, S2 muffled. No S3. No S4. RESPIRATORY SYSTEM: Breath sounds diminished at the bases. No rhonchi. No crackles. ABDOMEN: Soft, non-tender. No mass palpable. LEGS: Movement of the left leg is painful. Left hip movement is also painful. Left shoulder movements are also painful. Patient is keeping the left upper limb adducted. NERVOUS SYSTEM: Higher functions as mentioned earlier. Moves all 4 limbs. No focal motor or sensory deficit. LYMPHATICS: No lymph node palpable in neck, axillae or groin. SKIN: No ulcer, rash, bleeding. JOINTS: No active deforming arthropathy. LABS: WBC 26, hemoglobin 12.8, platelets 105. Sodium 135. ASSESSMENT: 1. Severe gait dysfunction, possibly secondary to degenerative joint disease. 2. Severe pain of the left hip and left shoulder. 3. Elevated white count, possibly secondary to chronic lymphoid leukemia. 4. Anemia. 5. Thrombocytopenia. 6. Hyponatremia. 7. Gait dysfunction. 8. History of diabetes mellitus, type 2. 9. Gastroesophageal reflux disease. 10.Hypertension. 11.History of degenerative joint disease. 12.History of seasonal allergies. 13.Gait dysfunction. 14.FULL CODE. RECOMMENDATIONS AND DISCUSSION: In this 75-year-old gentleman who presented with multiple complex medical issues, we will monitor the patient closely, continue the current medications, continue with symptomatic treatment. Otherwise at this time I recommend to continue with symptomatic treatment of the pain. Otherwise, monitor blood sugars closely. I would also recommend a sedimentation rate, CRP, and also a bone scan. CT scan of the chest, abdomen and pelvis also will be ordered to complete the workup as well as PSA testing. The overall prognosis is guarded because of multiple complex medical issues. Underlying malignancy is also a possibility. Prognosis guarded. Will monitor blood sugars closely. Further recommendations to follow. A copy of this dictation is being forwarded to Dr. Schneider, who is the primary physician. MMODL / IJN: [id number] /
[2020-04-27 17:16] LABS: Glucose,Whole Blood 95 mg/dL (75-99)
--- NOTE | 2020-04-27 18:11 | CT ---
EXAMINATION TYPE: CT ChestAbdPelvis wo con DATE OF EXAM: 04/27/2020 COMPARISON: None HISTORY: Left hip pain and weakness. History of leukemia. CT DLP: 925.1 mGycm Automated exposure control for dose reduction was used. Local axial sections were obtained from the thoracic inlet to the floor the pelvis without contrast. FINDINGS: The lungs are clear of consolidation. There is mild subsegmental atelectasis right lung base. Heart s ize is normal. There is no pericardial effusion. There is no mediastinal adenopathy. There are no hil ar masses. There is mild coronary artery calcification. There is normal contrast opacification of the stomach and proximal small bowel. Liver shows no focal defect. Spleen is intact. There is no pancreatic mass. Gallbladder has normal size and contour. There is no retroperitoneal adenopathy. Kidneys have normal size and contour. There is no hydronephrosis. Ureters are not dilated. There is normal-appearing urinary bladder. Bladder distends smoothly. There is no inguinal hernia. There is no evidence of a pelvic mass. There is no mesenteric edema. There is no ascites or free air. There is no sign of a bowel obstruction. Thoracic and lumbar vertebra have normal alignment. There is no compression fracture. There is spondy lotic changes in the lumbar spine with vacuum disc and spur formation. The bony pelvis is intact. The re are some mild degenerative cysts in the acetabulum bilaterally. I see no focal bone destruction. T here is no evidence of hip fracture. The femoral heads are intact. There is spurring on the femoral h milla. The pelvic ring is intact. Sacroiliac joints appear intact. Shoulder joints appear intact. The ribs appear intact. IMPRESSION: No acute abnormality of the chest abdomen pelvis. Mild osteoarthritic changes in the hip joints. No f racture. No focal bone destruction. No evidence of osseous metastatic disease. Atherosclerotic vascular disease.
[2020-04-27] MEDS: PANTOPRAZOLE 40 MG TABLET PO PRN (20:05)
[2020-04-27] MEDS: MONTELUKAST 10 MG TAB PO SCH (20:05)
[2020-04-27] MEDS: HYDROcodone/APAP 5-325MG 1 EACH TAB PO PRN (20:05)
[2020-04-27] MEDS: lisinopriL 20 MG TAB PO SCH (20:07)
[2020-04-27 20:08] LABS: Glucose,Whole Blood 102 mg/dL (75-99)
[2020-04-28] MEDS: HYDROcodone/APAP 5-325MG 1 EACH TAB PO PRN ×4 (02:23→21:40)
[2020-04-28 07:07] LABS: Glucose,Whole Blood 124 mg/dL (75-99)
[2020-04-28] MEDS: INSULIN ASPART (NovoLOG) 100 UNIT/ML VIAL SQ SCH ×4 (08:11→20:29)
[2020-04-28] MEDS: LORATADINE 10 MG TAB PO SCH (08:24)
[2020-04-28] MEDS: INSULN ASP PRT/INSULIN ASPART 100 UNIT/ML 10 ML VIAL SQ SCH (08:26)
[2020-04-28 08:37] LABS: African American GFR (CKD) >90 (>60 ml/min/1.73 sqM); Anion Gap 8 mmol/L; Blood Urea Nitrogen 13 mg/dL (9-20); Calcium 9.1 mg/dL (8.4-10.2); Carbon Dioxide 27 mmol/L (22-30); Chloride 101 mmol/L (98-107); Glucose 118 mg/dL (74-99); HCT 37.7 % (39.0-53.0); HGB 12.7 gm/dL (13.0-17.5); MCH 32.5 pg (25.0-35.0); MCHC 33.7 g/dL (31.0-37.0); MCV 96.3 fL (80.0-100.0); Non-African American GFR(CKD) >90 (>60 ml/min/1.73 sqM); Platelet Count 110 k/uL (150-450); Potassium 3.9 mmol/L (3.5-5.1); RBC 3.92 m/uL (4.30-5.90); RDW 13.1 % (11.5-15.5); Sodium 136 mmol/L (137-145); WBC 24.3 k/uL (3.8-10.6)
[2020-04-28 09:53] LABS: Eosinophils # (M) 0.24 k/uL (0-0.7); Monocytes # (M) 0.49 k/uL (0-1.0); Neutrophils # (M) 2.67 k/uL (1.3-7.7); Neutrophils % (M) 11 %; Nucleated Red Blood Cells 0 /100 WBC (0-0); Total Cells Counted 100
[2020-04-28 10:55] LABS: Glucose,Whole Blood 133 mg/dL (75-99)
[2020-04-28] MEDS: MULTIVITAMINS, THERA 1 EACH TAB PO SCH (12:02)
[2020-04-28] MEDS: FOLIC ACID 1 MG TAB PO SCH (12:02)
[2020-04-28] MEDS: THIAMINE 100 MG TAB PO SCH (12:03)
--- NOTE | 2020-04-28 13:19 | NM ---
EXAMINATION TYPE: NM bone scan whole body DATE OF EXAM: 04/28/2020 COMPARISON: CT scan 04/27/2020 HISTORY: Leukemia Delayed whole-body scanning was performed following the injection of 22.6 mCi Tc 99m MDP. Images acq uired 4 hours post injection. FINDINGS: Abnormal uptake involving the knees, feet and shoulders likely post arthritic. Faint uptake seen throughout the lower cervical, thoracic spine and lower lumbar spine is nonspecific but given the in faint intensity most likely degenerative. Intense abnormal uptake moderate degree mid sternum nonspecific. Faint abnormal uptake involving the hip joints bilaterally IMPRESSION: 1. No diagnostic evidence of metastases. 2. Abnormal uptake throughout the vertebral, appears to correspond with hypertrophic and degenerative changes seen by CT scan. 3. Abnormal uptake involving the sternum appears to correspond with hypertrophic arthropathy of the s ternal manubrial joint on CT scan. 4. Faint abnormal uptake involving the hips appear to correspond to arthropathy of the hip joints wit h small subchondral cysts or geodes involving the acetabulum and femoral head bilaterally.
[2020-04-28] MEDS: methylPREDNISolone SOD SUCCI 40 MG/ML 1 ML VIAL IV SCH (16:41)
[2020-04-28 17:05] LABS: Glucose,Whole Blood 133 mg/dL (75-99)
--- NOTE | 2020-04-28 17:23 | PN ---
PROGRESS NOTE DATE OF SERVICE: 04/28/2020 This 75-year-old gentleman who was admitted with severe gait dysfunction, possibly secondary to DJD, is complaining of severe pain. The patient has had multiple evaluations. The sodium was 136. The ESR is 7 and the CRP is also negative. UA is unremarkable and COVID-19 is also negative. The patient had multiple evaluations, including orthopedic evaluation and a CT scan of the chest, abdomen and pelvis which showed no acute abnormality. Mild DJD changes were noted. Other arthrosclerotic disease was also noted. A bone scan was also done for the possibility of any focal metastases, which showed abnormal uptake through the vertebrae, indicating hypertrophic degenerative changes, and no abnormal uptake suggestive of metastasis. Past medical history reviewed. REVIEW OF SYSTEMS: CARDIOVASCULAR SYSTEM: No angina, palpitations. RESPIRATORY SYSTEM: As mentioned earlier. GI: As mentioned earlier. : No dysuria or retention. NERVOUS SYSTEM: No numbness, weakness. CURRENT MEDICATIONS: Reviewed. They include: 1. [place] 5 mg. 2. Xanax. 3. Flonase. 4. Folic acid. 5. Dilaudid. 6. Advil. 7. NovoLog. 8. Zestril. 9. Claritin. 10.Solu-Medrol. 11.Narcan. 12.Protonix. 13.Vitamin B1. PHYSICAL EXAMINATION: Patient alert and oriented x3. Pulse 61, blood pressure 101/63, respirations 18, temperature 98.1, pulse ox 96% on room air. No orthostatic changes. HEENT: Conjunctivae normal. Oral mucosa moist. NECK: No jugular venous distention. No carotid bruit. No lymph node enlargement. CARDIOVASCULAR SYSTEM: S1, S2 muffled. RESPIRATORY SYSTEM: Breath sounds diminished at the bases. No rhonchi. No crackles. ABDOMEN: Soft, non-tender. LEGS: No edema. No swelling. NERVOUS SYSTEM: No focal deficit. Movements of the left shoulder and left hip are painful. LABS: WBC 24.3, hemoglobin 12.7. Sodium is 136. Glucose is 138. ASSESSMENT: 1. Severe gait dysfunction, possibly secondary to severe degenerative joint disease of the hip and left shoulder. 2. Severe pain of the left hip and left shoulder. 3. Elevated white count, possibly secondary to chronic lymphoid leukemia. 4. Anemia. 5. Thrombocytopenia. 6. Hyponatremia. 7. Gait dysfunction. 8. History of diabetes mellitus, type 2. 9. Gastroesophageal reflux disease. 10.Hypertension. 11.History of degenerative joint disease. 12.History of seasonal allergies. 13.Gait dysfunction. 14.FULL CODE. RECOMMENDATIONS AND DISCUSSION: In this 75-year-old gentleman who presented with multiple complex medical issues, at this time I recommend continuing with current medications, continue with symptomatic treatment. Otherwise, I would recommend empiric steroids. Monitor blood sugars closely. If blood sugars are more than 300, I would recommend IV insulin drip at this time. Otherwise, PT/OT evaluation and possible ECF rehab. Orthopedic input appreciated. Prognosis guarded because of multiple complex medical issues. Further recommendations to follow. MMODL / IJN: [id number] /
[2020-04-28 20:08] LABS: Glucose,Whole Blood 199 mg/dL (75-99)
[2020-04-28] MEDS: lisinopriL 20 MG TAB PO SCH (20:29)
[2020-04-28] MEDS: MONTELUKAST 10 MG TAB PO SCH (20:29)
[2020-04-29] MEDS: methylPREDNISolone SOD SUCCI 40 MG/ML 1 ML VIAL IV SCH ×2 (00:07→08:04)
[2020-04-29 07:55] LABS: Glucose,Whole Blood 257 mg/dL (75-99)
[2020-04-29 07:58] LABS: HCT 40.3 % (39.0-53.0); HGB 13.7 gm/dL (13.0-17.5); MCH 32.3 pg (25.0-35.0); Mean Platelet Volume 8.1; Platelet Count 146 k/uL (150-450); RBC 4.24 m/uL (4.30-5.90); WBC 32.3 k/uL (3.8-10.6)
[2020-04-29] MEDS: HYDROcodone/APAP 5-325MG 1 EACH TAB PO PRN ×2 (08:04→14:17)
[2020-04-29] MEDS: INSULIN ASPART (NovoLOG) 100 UNIT/ML VIAL SQ SCH ×2 (08:05→12:27)
[2020-04-29] MEDS: LORATADINE 10 MG TAB PO SCH (08:06)
[2020-04-29] MEDS: INSULN ASP PRT/INSULIN ASPART 100 UNIT/ML 10 ML VIAL SQ SCH (08:06)
[2020-04-29] MEDS: PANTOPRAZOLE 40 MG TABLET PO PRN (08:15)
[2020-04-29 08:28] LABS: African American GFR (CKD) >90 (>60 ml/min/1.73 sqM); Anion Gap 10 mmol/L; Blood Urea Nitrogen 17 mg/dL (9-20); Calcium 9.6 mg/dL (8.4-10.2); Carbon Dioxide 24 mmol/L (22-30); Chloride 99 mmol/L (98-107); Glucose 256 mg/dL (74-99); Non-African American GFR(CKD) >90 (>60 ml/min/1.73 sqM); Potassium 5.2 mmol/L (3.5-5.1); Sodium 133 mmol/L (137-145)
[2020-04-29 09:00] LABS: Monocytes # (M) 0.32 k/uL (0-1.0); Neutrophils % (M) 13 %; Nucleated Red Blood Cells 0 /100 WBC (0-0); Total Cells Counted 200
[2020-04-29 09:02] LABS: Anisocytosis (M) Present; Poikilocytosis (M) Present
[2020-04-29 11:56] LABS: Glucose,Whole Blood 223 mg/dL (75-99)
[2020-04-29] MEDS: FOLIC ACID 1 MG TAB PO SCH (12:27)
[2020-04-29] MEDS: THIAMINE 100 MG TAB PO SCH (12:27)
[2020-04-29] MEDS: MULTIVITAMINS, THERA 1 EACH TAB PO SCH (12:27)
--- NOTE | 2020-04-29 13:23 | P.DS ---
Providers Date of admission: 04/27/20 08:21 Expected date of discharge: 04/29/20 Attending physician: Delfina Torres Consults: 04/26/20 23:57 Consult Physician Urgent Consulting Provider: Kannan Stevenson Consult Reason/Comments: left leg weakness, left shoulder pain Do you want consulting provider notified?: Yes Primary care physician: Edgard Noriega [facility] Course: Final diagnosis Severe gait dysfunction, possibly secondary to severe degenerative joint disease of the hip and left shoulder Severe pain of the left hip and left shoulder Covid 19 ruled out, testing was negative Elevated white count, possibly secondary to chronic lymphoid leukemia Anemia Thrombocytopenia Gait dysfunction Hyponatremia History of diabetes mellitus type 2 History of degenerative joint disease History of seasonal ALLERGIES gastroesophageal reflux disease Full code Discharge disposition Patient is being Discharged in a stable condition with guarded prognosis to [facility] for continued PT/OT therapy. Patient will follow-up with Dr. Noriega upon discharge. Patient also instructed to follow-up with Dr. Stevenson in the outpatient setting. Patient will be continued on prednisone in the outpatient setting. Patient has an MRI scheduled and instructed to keep this appointment. Total time taken is greater than 35 minutes. History of present illness This is an 38-year-old male who was recently admitted with Severe gait dysfunction, possibly secondary to DJD and was being closely monitored. Patient was evaluated by orthopedic surgery and had multiple testings including his CAT scan of the chest and abdomen and pelvis which showed no acute abnormality with mild degenerative joint disease changes noted and other arthrosclerotic disease was noted. A bone scan was also performed for the possibility of any focal metastasis, showing abnormal uptake to the vertebra indicating hypertrophic degenerative changes and no abnormal uptake suggestive of metastasis. Patient does follow-up with orthopedic in the outpatient setting along with his primary care provider and is scheduled for an MRI of his knee and instructed to keep this appointment. Patient continued to be weak with gait dysfunction and PT/OT evaluated the patient recommending subacute rehab. Patient will be going to [facility] for rehab today. During hospitalization patient had covid 19 testing which was Negative. Currently no reports of chest pain, shortness of breath, or palpitations. Patient is afebrile. No reports of nausea or vomiting and patient is tolerating diet. Patient will be transferred to [facility] today for continued PT/OT therapy. On exam vital signs are stable. Temp is 97.6F, pulse is 104, respirations are 20, blood pressure is 126/76, oxygen saturation is 97% on Room air. Cardio S1, S2 are muffled. Respiratory shows diminished breath sounds at the bases with No wheezing or rhonchi noted. Abdomen is soft and nontender. Nervous system shows mild diffuse weakness. Please refer to medication reconciliation sheet for a list of medications. Patient Condition at Discharge: Stable Plan - Discharge Summary Discharge Rx Participant: No New Discharge Prescriptions: New predniSONE 5 mg PO DAILY 13 Days #36 tab Folic Acid 1 mg PO DAILY@1200 tab Multivitamins, Thera [Multivitamin (formulary)] 1 each PO DAILY@1200 tab INSULIN ASPART (NovoLOG) [NovoLOG (formulary)] 0 unit SQ ACHS vial Thiamine [Vitamin B-1] 100 mg PO DAILY@1200 tab Continue Fluticasone Nasal [place] [Flonase Nasal [place]] 2 spr EA NOSTRIL DAILY PRN #1 bottle PRN Reason: Congestion Montelukast Sodium [Singulair] 10 mg PO HS lisinopriL [Zestril] 40 mg PO HS Cetirizine HCl [Zyrtec] 10 mg PO DAILY Insulin NPH Hum/Reg Insulin Hm [Relion Novolin 70-30 Flexpen] 17 units SQ QAM Omeprazole Magnesium [PriLOSEC OTC] 20 mg PO DAILY PRN PRN Reason: acid reflux Ibuprofen [Advil] 800 mg PO Q4H PRN PRN Reason: Pain HYDROcodone/APAP 5-325MG [[place] 5-325] 1 each PO Q6HR PRN #6 tab PRN Reason: Pain ALPRAZolam [Xanax] 0.25 mg PO BID PRN #6 tab PRN Reason: Anxiety Discharge Medication List Fluticasone Nasal [place] [Flonase Nasal [place]] 2 spr EA NOSTRIL DAILY PRN #1 bottle 10/27/16 [Rx] Cetirizine HCl [Zyrtec] 10 mg PO DAILY 05/25/17 [History] Montelukast Sodium [Singulair] 10 mg PO HS 05/25/17 [History] lisinopriL [Zestril] 40 mg PO HS 05/25/17 [History] Insulin NPH Hum/Reg Insulin Hm [[place]ion Novolin 70-30 Flexpen] 17 units SQ QAM 03/05/20 [History] Omeprazole Magnesium [PriLOSEC OTC] 20 mg PO DAILY PRN 03/05/20 [History] Ibuprofen [Advil] 800 mg PO Q4H PRN 04/26/20 [History] predniSONE 5 mg PO DAILY 13 Days #36 tab 04/27/20 [Rx] ALPRAZolam [Xanax] 0.25 mg PO BID PRN #6 tab 04/29/20 [Rx] Folic Acid 1 mg PO DAILY@1200 tab 04/29/20 [Rx] HYDROcodone/APAP 5-325MG [[place] 5-325] 1 each PO Q6HR PRN #6 tab 04/29/20 [Rx] INSULIN ASPART (NovoLOG) [NovoLOG (formulary)] 0 unit SQ ACHS vial 04/29/20 [Rx] Multivitamins, Thera [Multivitamin (formulary)] 1 each PO DAILY@1200 tab 04/29/20 [Rx] Thiamine [Vitamin B-1] 100 mg PO DAILY@1200 tab 04/29/20 [Rx] Follow up Appointment(s)/Referral(s): Kannan Stevenson DO [Doctor of Osteopathic Medicine] - As Needed Edgard Noriega DO [Primary Care Provider] - 1-2 days Activity/Diet/Wound Care/Special Instructions: Patient is going to [facility] Activity as tolerated Continue current diet Follow-up with primary care provider upon discharge Keep your MRI appointment as scheduled Continue working with physical therapy Continue monitoring blood sugars before meals at bedtime and treat accordingly with sliding scale Discharge Disposition: TRANSFER TO SNF/ECF
[2020-04-29 14:27] VITALS: RESP 16; TEMP 98
[2020-04-29 14:34] VITALS: BP 79/56; PULSE 104
== END 2020-04-29 13:57 ==
LOC: EC 21:39 → 5NMEDONC 04-27 → INTOOBSV 04-27 08:21 → OBSVTOIN 04-27 08:21 → UNDODISIN 04-29 16:36
PROVIDERS: ADMIT Internal Medicine; ATTEND Internal Medicine
DX: R26.2 Difficulty in walking, not elsewhere classified (principal); M16.12 Unilateral primary osteoarthritis, left hip; M17.12 Unilateral primary osteoarthritis, left knee; E87.1 Hypo-osmolality and hyponatremia; D69.6 Thrombocytopenia, unspecified; C91.11 Chronic lymphocytic leukemia of B-cell type in remission; M19.012 Primary osteoarthritis, left shoulder; M19.041 Primary osteoarthritis, right hand; M19.042 Primary osteoarthritis, left hand; R53.1 Weakness; Z03.818 Encounter for observation for suspected exposure to other biological agents ruled out; E11.9 Type 2 diabetes mellitus without complications; M48.061 Spinal stenosis, lumbar region without neurogenic claudication; M75.102 Unspecified rotator cuff tear or rupture of left shoulder, not specified as traumatic; R29.6 Repeated falls; D64.9 Anemia, unspecified; I10 Essential (primary) hypertension; K21.9 Gastro-esophageal reflux disease without esophagitis; J30.2 Other seasonal allergic rhinitis; G56.01 Carpal tunnel syndrome, right upper limb; H93.13 Tinnitus, bilateral; Z79.4 Long term (current) use of insulin; Z79.891 Long term (current) use of opiate analgesic; Z79.1 Long term (current) use of non-steroidal anti-inflammatories (NSAID); Z79.899 Other long term (current) drug therapy; Z88.0 Allergy status to penicillin; Z88.1 Allergy status to other antibiotic agents; Z98.890 Other specified postprocedural states; Z87.81 Personal history of (healed) traumatic fracture; Z82.3 Family history of stroke; Z83.3 Family history of diabetes mellitus
CPT/HCPCS: 96376 ×2; 96375; 96374; 99285; 36415; 93005; 97530 ×2; 97162; 97535 ×2; 97166; 84153; 80053; 80048 ×2; 85652; 82550; 83735; 85025 ×3; 85610; 85730; 86140; 81003; 73030; 71045; 72128; 72131; 70450; 71250; 74176; 78306; G0378 ×3; U0003; A9503; J2270 ×2; J2920 ×2

== ENCOUNTER → 2020-06-07 | Outpatient (CLI) | payer MEDICARE ==
--- NOTE | 2020-06-08 02:00 | MR ---
EXAMINATION TYPE: MR lumbar spine wo/w con DATE OF EXAM: 06/07/2020 COMPARISON: HISTORY: Low back pain into left leg CONTRAST: Standard multiplanar, multisequence MRI departmental protocol utilizing 7.5 mL intravenous Gadavist g adolinium contrast. Lumbar vertebra have normal alignment. There is degenerative disc space narrowing throughout the lumb ar spine. There is no compression fracture. There is spurring of the endplates. There is hypertrophic facet arthropathy with disc bulging and ligament thickening with resultant moderately severe spinal stenosis at L3-4. There is no lumbar paraspinal mass. The posterior elements are intact. The sacroiliac joints appear intact. Lumbar nerve roots appear nor mal. There is mild narrowing of the lumbar neural foramina bilaterally from L3 to S1 due to disc spac e narrowing and facet arthropathy. Contrast images show no pathologic enhancement. IMPRESSION: Multilevel spondylotic changes. Moderately severe spinal stenosis at L3-4 as above. No fracture. Mild multilevel neural foraminal impingement.
== END | disposition home or self-care (01) ==
LOC: RADMRIMAIN 17:03
PROVIDERS: ATTEND Family Medicine
DX: M48.061 Spinal stenosis, lumbar region without neurogenic claudication (principal); M47.816 Spondylosis without myelopathy or radiculopathy, lumbar region; M47.817 Spondylosis without myelopathy or radiculopathy, lumbosacral region; I10 Essential (primary) hypertension; E11.42 Type 2 diabetes mellitus with diabetic polyneuropathy; E11.65 Type 2 diabetes mellitus with hyperglycemia; C91.11 Chronic lymphocytic leukemia of B-cell type in remission
CPT/HCPCS: 72158; A9585

== ENCOUNTER → 2020-12-31 | Outpatient (CLI) | payer MEDICARE ==
--- NOTE | 2020-12-31 14:46 | MR ---
EXAMINATION TYPE: MR knee LT wo con DATE OF EXAM: 12/31/2020 COMPARISON: None HISTORY: Lt knee pain TECHNIQUE: Multiplanar, multisequence images of the knee is performed without IV contrast. FINDINGS: MEDIAL MENISCUS: Macerated tear posterior horn medial meniscus. Anterior horn is intact. LATERAL MENISCUS: Anterior and posterior horns are intact without tear. CRUCIATE LIGAMENTS: The anterior and posterior cruciate ligaments are intact and unremarkable. COLLATERAL LIGAMENTS: The medial collateral ligament and lateral collateral ligament complex are inta ct and unremarkable. EXTENSOR MECHANISM: Visualized quadriceps and patellar tendons are intact. EFFUSION: No significant suprapatellar joint effusion. POPLITEAL CYST: Popliteal cyst measuring 6.4cm TRICOMPARTMENT SPACES: Mild multicompartment degenerative disc space narrowing. CARTILAGE: Intact BONE MARROW SIGNAL: No focal abnormal marrow signal is appreciated. OTHER: No additional significant abnormality is appreciated. IMPRESSION: 1.Macerated tear posterior horn medial meniscus. 2.Popliteal cyst measuring 6.4cm
== END | disposition home or self-care (01) ==
LOC: RADMRIMAIN 13:08
PROVIDERS: ATTEND Orthopaedic Surgery
DX: S83.242A Other tear of medial meniscus, current injury, left knee, initial encounter (principal); M71.22 Synovial cyst of popliteal space [Baker], left knee

== ENCOUNTER 2021-01-24 13:12 | Inpatient (IN) | payer MEDICARE ==
[2021-01-24] MEDS ORDERED: ASPIRIN 325 MG TAB PO STA (13:37)
--- NOTE | 2021-01-24 13:37 | ED ---
General Adult HPI - General Chief complaint: Chest Pain Stated complaint: Chest pain Time Seen by Provider: 01/24/21 13:13 Source: patient, EMS, RN notes reviewed, old records reviewed Mode of arrival: EMS - History of Present Illness Initial comments: Summary 5-year-old male presenting for evaluation of substernal chest pain. Pain is been intermittent over the past several days. He does report that it is worse with exertion and relieved by rest. He has no previous history of CAD. He has a history of hypertension. He is a nonsmoker. He states that this morning the pain became more severe and longer lasting. He states it is mostly resolved at this time. He denies vomiting. This is lower chest nonradiating. - Related Data Home Medications Medication Instructions Recorded Confirmed Cetirizine HCl [Zyrtec] 10 mg PO DAILY 05/25/17 04/26/20 Montelukast Sodium [Singulair] 10 mg PO HS 05/25/17 04/26/20 lisinopriL [Zestril] 40 mg PO HS 05/25/17 04/26/20 Insulin NPH Hum/Reg Insulin Hm 17 units SQ QAM 03/05/20 04/26/20 [Relion Novolin 70-30 Flexpen] Omeprazole Magnesium [PriLOSEC OTC] 20 mg PO DAILY PRN 03/05/20 04/26/20 Ibuprofen [Advil] 800 mg PO Q4H PRN 04/26/20 04/26/20 Previous Rx's Medication Instructions Recorded Fluticasone Nasal [place] [Flonase 2 spr EA NOSTRIL DAILY PRN #1 10/27/16 Nasal [place]] bottle predniSONE 5 mg PO DAILY 13 Days #36 tab 04/27/20 ALPRAZolam [Xanax] 0.25 mg PO BID PRN #6 tab 04/29/20 Folic Acid 1 mg PO DAILY@1200 tab 04/29/20 HYDROcodone/APAP 5-325MG [[place] 1 each PO Q6HR PRN #6 tab 04/29/20 5-325] INSULIN ASPART (NovoLOG) [NovoLOG 0 unit SQ ACHS vial 04/29/20 (formulary)] Multivitamins, Thera [Multivitamin 1 each PO DAILY@1200 tab 04/29/20 (formulary)] Thiamine [Vitamin B-1] 100 mg PO DAILY@1200 tab 04/29/20 Allergies Allergy/AdvReac Type Severity Reaction Status Date / Time amoxicillin [From Augmentin] Allergy Rash/Hives Verified 04/26/20 23:19 clavulanic acid Allergy Rash/Hives Verified 04/26/20 23:19 [From Augmentin] Review of Systems ROS Statement: Those systems with pertinent positive or pertinent negative responses have been documented in the HPI. ROS Other: All systems not noted in ROS Statement are negative. Past Medical History Past Medical History: Cancer, Diabetes Mellitus, GERD/Reflux, Hypertension, Osteoarthritis (OA) Additional Past Medical History / Comment(s): NIDDM type II, 1999 LEUKEMIA (CLL-remission), sinus problems, seasonal allergies, tinnitis bilaterally, OA hands, R wrist carpal tunnel, past fx with L elbow, R rotator cuff tendon problems, L rotator cuff tear, left knee pain History of Any Multi-Drug Resistant Organisms: None Reported Past Surgical History: Orthopedic Surgery Additional Past Surgical History / Comment(s): LEFT HAND thumb tendon repair. Past Anesthesia/Blood Transfusion Reactions: No Reported Reaction Past Psychological History: No Psychological Hx Reported Smoking Status: Never smoker Past Alcohol Use History: None Reported Past Drug Use History: None Reported - Past Family History Father Family Medical History: CVA/TIA Additional Family Medical History / Comment(s): Father at the age of 85yrs. Mother Family Medical History: Diabetes Mellitus Additional Family Medical History / Comment(s): Mother at the age of 90yrs. General Exam General appearance: alert, in no apparent distress Head exam: Present: atraumatic, normocephalic Eye exam: Present: normal appearance, PERRL ENT exam: Present: normal exam Neck exam: Present: normal inspection. Absent: tenderness, meningismus Respiratory exam: Present: normal lung sounds bilaterally. Absent: respiratory distress, wheezes Cardiovascular Exam: Present: regular rate, normal rhythm GI/Abdominal exam: Present: soft. Absent: distended, tenderness, guarding Extremities exam: Present: normal inspection, normal capillary refill. Absent: pedal edema, calf tenderness Neurological exam: Present: alert, oriented X3, CN II-XII intact. Absent: motor sensory deficit Psychiatric exam: Present: normal affect, normal mood Skin exam: Present: warm, dry, intact. Absent: cyanosis, diaphoretic Course Vital Signs 01/24/21 13:27 Temperature 97.8 F Pulse Rate 77 Respiratory 18 Rate Blood Pressure 159/98 O2 Sat by Pulse 99 Oximetry EKG Findings - EKG Comments: EKG Findings:: EKG: Sinus rhythm no ST segment elevation, LVH, rate of 88, IL interval 154, QRS duration 90, QTC 445 Medical Decision Making - Medical Decision Making 75 yo male presenting with substernal chest pain, intermittent over the past several days. Patient has EKG showing sinus rhythm without ST segment elevation per chest x-ray negative for focal pneumonia, no acute findings. Patient has a CBC showing cytosis with a history of CLL. Patient has negative d-dimer, negative initial troponin. He will be kept in observation for serial cardiac enzymes, telemetry, cardiology consultation. Case discussed with Dr. Morris who will admit. - Lab Data Result diagrams: 01/24/21 13:26 01/24/21 13:26 Lab Results 01/24/21 01/24/21 01/24/21 Range/Units 13:26 13:26 13:26 WBC 27.9 H (3.8-10.6) k/uL RBC 4.19 L (4.30-5.90) m/uL Hgb 13.5 (13.0-17.5) gm/dL Hct 37.7 L (39.0-53.0) % MCV 90.0 (80.0-100.0) fL MCH 32.3 (25.0-35.0) pg MCHC 35.9 (31.0-37.0) g/dL RDW 13.0 (11.5-15.5) % Plt Count 119 L (150-450) k/uL MPV 7.3 PT 10.8 (9.0-12.0) sec INR 1.0 (<1.2) APTT 22.4 (22.0-30.0) sec D-Dimer 0.43 (<0.60) mg/L FEU Sodium 133 L (137-145) mmol/L Potassium 3.9 (3.5-5.1) mmol/L Chloride 99 (98-107) mmol/L Carbon Dioxide 27 (22-30) mmol/L Anion Gap 7 mmol/L BUN 15 (9-20) mg/dL Creatinine 0.91 (0.66-1.25) mg/dL Est GFR (CKD-EPI)AfAm >90 (>60 ml/min/1.73 sqM) Est GFR (CKD-EPI)NonAf 83 (>60 ml/min/1.73 sqM) Glucose 237 H (74-99) mg/dL Calcium 9.1 (8.4-10.2) mg/dL Magnesium 1.7 (1.6-2.3) mg/dL Total Bilirubin 0.6 (0.2-1.3) mg/dL AST 23 (17-59) U/L ALT 21 (4-49) U/L Alkaline Phosphatase 81 (38-126) U/L Troponin I (0.000-0.034) ng/mL NT-Pro-B Natriuret Pep pg/mL Total Protein 5.9 L (6.3-8.2) g/dL Albumin 3.9 (3.5-5.0) g/dL Lipase 72 (23-300) U/L 01/24/21 01/24/21 Range/Units 13:26 13:26 WBC (3.8-10.6) k/uL RBC (4.30-5.90) m/uL Hgb (13.0-17.5) gm/dL Hct (39.0-53.0) % MCV (80.0-100.0) fL MCH (25.0-35.0) pg MCHC (31.0-37.0) g/dL RDW (11.5-15.5) % Plt Count (150-450) k/uL MPV PT (9.0-12.0) sec INR (<1.2) APTT (22.0-30.0) sec D-Dimer (<0.60) mg/L FEU Sodium (137-145) mmol/L Potassium (3.5-5.1) mmol/L Chloride (98-107) mmol/L Carbon Dioxide (22-30) mmol/L Anion Gap mmol/L BUN (9-20) mg/dL Creatinine (0.66-1.25) mg/dL Est GFR (CKD-EPI)AfAm (>60 ml/min/1.73 sqM) Est GFR (CKD-EPI)NonAf (>60 ml/min/1.73 sqM) Glucose (74-99) mg/dL Calcium (8.4-10.2) mg/dL Magnesium (1.6-2.3) mg/dL Total Bilirubin (0.2-1.3) mg/dL AST (17-59) U/L ALT (4-49) U/L Alkaline Phosphatase (38-126) U/L Troponin I <0.012 (0.000-0.034) ng/mL NT-Pro-B Natriuret Pep 260 pg/mL Total Protein (6.3-8.2) g/dL Albumin (3.5-5.0) g/dL Lipase (23-300) U/L Disposition Clinical Impression: Chest pain Disposition: HOME SELF-CARE Condition: Stable Is patient prescribed a controlled substance at d/c from ED?: No Referrals: Edgard Schneider DO [Primary Care Provider] - 1-2 days Decision to Admit Reason: Admit from EC Decision Date: 01/24/21 Decision Time: 15:00
[2021-01-24 14:02] LABS: HCT 37.7 % (39.0-53.0); HGB 13.5 gm/dL (13.0-17.5); MCH 32.3 pg (25.0-35.0); MCHC 35.9 g/dL (31.0-37.0); Mean Platelet Volume 7.3; Platelet Count 119 k/uL (150-450); RBC 4.19 m/uL (4.30-5.90); WBC 27.9 k/uL (3.8-10.6)
--- NOTE | 2021-01-24 14:19 | XR ---
EXAMINATION TYPE: XR chest 2V DATE OF EXAM: 01/24/2021 COMPARISON: 04/27/2020 HISTORY: 75-year-old male with chest pain and shortness of breath TECHNIQUE: AP and lateral views FINDINGS: The heart is borderline in size. Limitations due to large body habitus. Unable to exclude subtle elia y peripheral interstitial changes in the lungs. Otherwise, no other consolidation or pleural effusion . IMPRESSION: 1. The heart size is mildly accentuated compared to prior exam. 2. Some subtle peripheral densities in both sides may be technical due to large patient body habitus. Correlate to exclude subtle early interstitial infiltrates/atypical pneumonia.
[2021-01-24 14:27] LABS: ALT 21 U/L (4-49); AST 23 U/L (17-59); African American GFR (CKD) >90 (>60 ml/min/1.73 sqM); Albumin 3.9 g/dL (3.5-5.0); Alkaline Phosphatase 81 U/L (38-126); Anion Gap 7 mmol/L; Blood Urea Nitrogen 15 mg/dL (9-20); Calcium 9.1 mg/dL (8.4-10.2); Carbon Dioxide 27 mmol/L (22-30); Chloride 99 mmol/L (98-107); Glucose 237 mg/dL (74-99); Lipase 72 U/L (23-300); Magnesium 1.7 mg/dL (1.6-2.3); Non-African American GFR(CKD) 83 (>60 ml/min/1.73 sqM); Potassium 3.9 mmol/L (3.5-5.1); Sodium 133 mmol/L (137-145); Total Bilirubin 0.6 mg/dL (0.2-1.3); Total Protein 5.9 g/dL (6.3-8.2)
[2021-01-24 14:35] LABS: D-Dimer 0.43 mg/L FEU (<0.60); Partial Thromboplastin Time 22.4 sec (22.0-30.0); Prothrombin Time 10.8 sec (9.0-12.0)
[2021-01-24] MEDS ORDERED: NALOXONE 0.4 MG/ML 1 ML VIAL IV PRN (14:53)
[2021-01-24] MEDS ORDERED: MORPHINE SULFATE 4 MG/ML SYRINGE IV PRN (14:53)
[2021-01-24 15:13] LABS: Basophils # (M) 0.28 k/uL (0-0.2); Lymphocytes # (M) 23.16 k/uL (1.0-4.8); Monocytes # (M) 0.28 k/uL (0-1.0); Neutrophils # (M) 4.46 k/uL (1.3-7.7); Neutrophils % (M) 16 %; Nucleated Red Blood Cells 0 /100 WBC (0-0); Total Cells Counted 200
[2021-01-24] MEDS: SODIUM CHLORIDE 0.9% 1,000 ML IV SCH (15:56)
[2021-01-24] MEDS ORDERED: FLUTICASONE 50MCG/SPRAY NASAL 16GM EA NOSTRIL PRN (19:47)
[2021-01-24] MEDS ORDERED: ALPRAZolam 0.25 MG TAB PO PRN (19:47)
[2021-01-24] MEDS ORDERED: INSULN ASP PRT/INSULIN ASPART 100 UNIT/ML 10 ML VIAL SQ PRN (19:47)
[2021-01-24] MEDS ORDERED: TEMAZEPAM 15 MG CAP PO PRN (19:48)
[2021-01-24] MEDS: PANTOPRAZOLE 40 MG/10 ML VIAL IVP SCH (20:11)
[2021-01-24] MEDS: KETOROLAC 0.5% OPHTH DROPS 5 ML BTL BOTH EYES SCH (21:57)
[2021-01-24] MEDS: HYDROcodone/APAP 5-325MG 1 EACH TAB PO PRN (22:06)
[2021-01-24] MEDS: HEPARIN SODIUM,PORCINE/PF 5,000 UNIT/0.5 ML SYRINGE SQ SCH (22:07)
--- NOTE | 2021-01-24 22:18 | HP ---
HISTORY AND PHYSICAL DATE OF SERVICE: 01/24/2021 CHIEF COMPLAINT: Chest pain. HISTORY OF PRESENT ILLNESS: This 75-year-old gentleman with a past medical history of diabetes mellitus, GERD, hypertension, history of DJD, history of CLL, in remission, being followed by Dr. Schneider and Dr. Haro in the outpatient setting, was complaining of chest pain which is mostly situated in the substernal area on the left side of the chest. The patient also had some shortness of breath. The patient has had intermittent pain over the last several days. Patient also points to an area in the epigastrium to the right side of the stomach as also having some pain previously. The patient's D-dimer is negative. Patient is being closely monitored at this time. There is no history of any fever, rigor or chills. No history of headache, loss of consciousness, seizures. PAST MEDICAL HISTORY: Diabetes mellitus, GERD, hypertension, DJD, history of chronic lymphoid leukemia. HOME MEDICATIONS: Omeprazole, prednisone, ketorolac, Zestril, Singulair, insulin NPH, hydrocodone, fluticasone, Zyrtec, Xanax. Doses are reviewed. ALLERGIES: AMOXICILLIN. FAMILY HISTORY: History of CVA, TIA. SOCIAL HISTORY: No history of smoking. No history of alcohol intake. REVIEW OF SYSTEMS: ENT: Diminished hearing. Diminished vision. CARDIOVASCULAR SYSTEM: As mentioned earlier. RESPIRATORY SYSTEM: As mentioned earlier. GI: As mentioned earlier. : No dysuria or retention. NERVOUS SYSTEM: No numbness, weakness. ALLERGY/IMMUNOLOGY: As mentioned earlier. HEMATOLOGY/ONCOLOGY: As mentioned earlier. ENDOCRINE: As mentioned earlier. CONSTITUTIONAL: As mentioned earlier. DERMATOLOGY: Negative. RHEUMATOLOGY: Negative. PSYCHIATRY: As mentioned earlier. PHYSICAL EXAMINATION: Patient alert and oriented x3. Pulse 59, blood pressure 166/80, respiration 18, temperature normal, pulse ox 94% on room air. HEENT: Conjunctivae normal. NECK: No jugular venous distention. CARDIOVASCULAR SYSTEM: S1, S2 muffled. RESPIRATORY SYSTEM: Breath sounds diminished at the bases. No rhonchi. No crackles. ABDOMEN: Soft, non-tender. No mass palpable. LEGS: No edema. No swelling. NERVOUS SYSTEM: Higher functions as mentioned earlier. Moves all 4 limbs. No focal motor or sensory deficit. LYMPHATICS: No lymph node palpable in neck, axillae or groin. SKIN: No ulcer, rash, bleeding. JOINTS: No active deforming arthropathy. LABS: WBC 27.9, hemoglobin 13.5. Sodium 133, glucose 237. EKG, which I personally reviewed, showed nonspecific ST-T changes. ASSESSMENT: 1. Chest pain, possible unstable angina. 2. Rule out pulmonary embolism. Rule out peripheral opacities in the chest x-ray. 3. Diabetes mellitus, type 2. 4. Gastroesophageal reflux disease. 5. Hypertension. 6. History of degenerative joint disease. 7. History of chronic lymphoid leukemia, in remission. 8. FULL CODE. RECOMMENDATIONS AND DISCUSSION: In this 75-year-old gentleman who presented with multiple complex medical issues, we will monitor the patient closely, continue the current medications. Continue symptomatic treatment. Resume the home medications. CT angio of the chest. Cardiology consultation. Two-D echo with Doppler. Guarded prognosis because of multiple complex medical issues. Further recommendations to follow. A copy of this dictation is being forwarded to Dr. Schneider, who is the primary physician. MMODL / IJN: [id number] /
--- NOTE | 2021-01-24 22:37 | CT ---
EXAMINATION TYPE: CT angio chest DATE OF EXAM: 01/24/2021 COMPARISON: None HISTORY: SOB CT DLP: 673.9 mGycm Automated exposure control for dose reduction was used. CONTRAST: Performed with IV Contrast, patient injected with 85cc mL of Isovue 370. Images are obtained from the thoracic inlet to the diaphragm with IV contrast. There are 3-D post pro cessed images. There is posterior pulmonary interstitial infiltrates and subsegmental atelectasis in the mid and low er lung xiong. Heart appears slightly enlarged. There is no pericardial effusion. There is no pleura l effusion. There are no hilar masses. There is no mediastinal adenopathy. Thoracic aorta is intact. There is no dissection. 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 There is normal contrast opacification of the pulmonary arteries. There are no filling defects. There is some spurring in the thoracic spine. I see no bony destructive process. Sternum is intact. IMPRESSION: No evidence of pulmonary embolism. Cardiomegaly with mild pulmonary interstitial infiltrates and atelectasis in the lower lung xiong.
[2021-01-25 04:23] LABS: ALT 19 U/L (4-49); AST 24 U/L (17-59); African American GFR (CKD) >90 (>60 ml/min/1.73 sqM); Albumin 3.5 g/dL (3.5-5.0); Albumin/Globulin Ratio 1.7; Alkaline Phosphatase 73 U/L (38-126); Anion Gap 6 mmol/L; Blood Urea Nitrogen 14 mg/dL (9-20); Carbon Dioxide 29 mmol/L (22-30); Chloride 101 mmol/L (98-107); Globulin 2.1 g/dL; Glucose 134 mg/dL (74-99); Non-African American GFR(CKD) 89 (>60 ml/min/1.73 sqM); Potassium 4.5 mmol/L (3.5-5.1); Sodium 136 mmol/L (137-145); Total Bilirubin 0.7 mg/dL (0.2-1.3); Total Protein 5.6 g/dL (6.3-8.2)
[2021-01-25 05:12] LABS: Basophils # (A) 0.2 k/uL (0-0.2); Basophils % (A) 1 %; Eosinophils # (A) 0.1 k/uL (0-0.7); Eosinophils % (A) 1 %; HCT 39.1 % (39.0-53.0); HGB 12.7 gm/dL (13.0-17.5); Lymphocytes % (A) 81 %; MCH 30.3 pg (25.0-35.0); MCHC 32.6 g/dL (31.0-37.0); Mean Platelet Volume 7.4; Monocytes # (A) 0.4 k/uL (0-1.0); Monocytes % (A) 2 %; Neutrophils # (A) 3.2 k/uL (1.3-7.7); Neutrophils % (A) 12 %; Platelet Count 101 k/uL (150-450); WBC 26.7 k/uL (3.8-10.6)
[2021-01-25 05:51] LABS: Lymphocytes # (A) 21.6 k/uL (1.0-4.8)
[2021-01-25] MEDS: HYDROcodone/APAP 5-325MG 1 EACH TAB PO PRN ×3 (06:33→21:15)
[2021-01-25 06:40] LABS: Glucose,Whole Blood 131 mg/dL (75-99)
[2021-01-25 08:16] LABS: Basophils # (M) 0.27 k/uL (0-0.2); Eosinophils # (M) 0.27 k/uL (0-0.7); Monocytes # (M) 0.27 k/uL (0-1.0); Neutrophils # (M) 1.87 k/uL (1.3-7.7); Neutrophils % (M) 7 %; Nucleated Red Blood Cells 0 /100 WBC (0-0); Total Cells Counted 200
[2021-01-25] MEDS ORDERED: ASPIRIN 325 MG TAB PO SCH (09:00)
[2021-01-25] MEDS: PANTOPRAZOLE 40 MG/10 ML VIAL IVP SCH (09:53)
[2021-01-25] MEDS: LORATADINE 10 MG TAB PO SCH (09:54)
[2021-01-25] MEDS: MONTELUKAST 10 MG TAB PO SCH (09:54)
[2021-01-25] MEDS: lisinopriL 20 MG TAB PO SCH (09:54)
[2021-01-25] MEDS: HEPARIN SODIUM,PORCINE/PF 5,000 UNIT/0.5 ML SYRINGE SQ SCH ×2 (09:54→21:13)
[2021-01-25] MEDS: prednisoLONE ACETATE 1% OPHTH DROPS 5 ML BTL BOTH EYES SCH ×3 (09:55→21:14)
[2021-01-25] MEDS: KETOROLAC 0.5% OPHTH DROPS 5 ML BTL BOTH EYES SCH ×2 (09:56→21:14)
--- NOTE | 2021-01-25 11:07 | P.CRDCN ---
History of Present Illness History of present illness: HISTORY OF PRESENTING ILLNESS This is a pleasant 75-year-old male past medical history significant for CLL since 1998, diabetes mellitus, hypertension, osteoarthritis and poor functional capacity. He denies prior history of coronary artery disease and does not follow in the office with a dormitory maid. We have been asked to see in consultation for chest pain. He states the first episode occurred a couple of weeks ago while he was up doing work around the kitchen and he felt the discomfort in the left precordial region. Described as a heavy sensation. The episode was brief and subsided on its own. Then yesterday morning while he was having a heated discussion with the family member regarding some family issues he had another episode of chest discomfort that radiated to the left shoulder minimally. This was associated with mild shortness of breath. He denies palpi tations, nausea, vomiting or diaphoresis. There is no old cardiac testing to review. DIAGNOSTICS EKG reveals sinus mechanism with nonspecific T wave abnormalities noted in lead V1. Telemetry tracings indicate sinus mechanism. Chest xray subtle peripheral densities bilaterally. Could be early interstitial infiltrate/atypical pneumonia. CTA is negative for pulmonary embolism. Laboratory reviewed, revealed BC 26.7, hemoglobin 12.7, platelets 101, sodium 136, potassium 4.5, magnesium 1.7, creatinine 0.8, cardiac enzymes negative 3. Current cardiac medications include lisinopril 40 mg daily. REVIEW OF SYSTEMS At the time of my exam: CONSTITUTIONAL: Denies fever or chills. CARDIOVASCULAR: Denies chest pain, shortness of breath, orthopnea, PND or palpitations. RESPIRATORY: Denies cough. GASTROINTESTINAL: Denies abdominal pain, diarrhea, constipation, nausea or vomiting. MUSCULOSKELETAL: Denies myalgias. NEUROLOGIC: Denies numbness, tingling, headacbe or weakness. ENDOCRINE: Denies fatigue, weight change, polydipsia or polyurina. GENITOURINARY: Denies burning, hematuria or urgency with micturation. HEMATOLOGIC: Denies history of anemia or bleeding. PHYSICAL EXAMINATION Blood pressure 159/60 heart rate 55 afebrile and maintaining oxygen saturation on nasal cannula. CONSTITUTIONAL: No apparent distress. HEENT: Head is normocephalic. Pupils are equal, round. Sclerae anicteric. Mucous membranes of the mouth are moist. No JVD. No carotid bruit. CHEST EXAMINATION: Lungs are clear to auscultation. No chest wall tenderness is noted on palpation or with deep breathing. HEART EXAMINATION: Regular rate and rhythm. S1, S2 heard. No murmurs, gallops or rub. ABDOMEN: Soft, nontender. Positive bowel sounds. EXTREMITIES: 2+ peripheral pulses, no lower extremity edema and no calf t enderness. NEUROLOGIC EXAMINATION: Patient is awake, alert and oriented x3. ASSESSMENT Chest pain, atypical. Hypertension Diabetes mellitus CLL, follows with Dr. Haro Poor functional capacity due to arthritis PLAN An acute coronary event has been ruled out. Decrease aspirin to 81 mg daily. Check lipid profile. Echocardiogram has been obtained and will be reviewed. Due to his history of diabetes mellitus recommend initiation of atorvastatin 40 mg daily. Continue lisinopril as previously ordered. He has eaten breakfast, so we will order a Lexiscan stress test tomorrow morning. NPO after midnight tonight. Thank you kindly for this consultation. Nurse Practitioner note has been reviewed, I agree with a documented findings and plan of care. Patient was seen and examined. Past Medical History Past Medical History: Cancer, Diabetes Mellitus, GERD/Reflux, Hypertension, Osteoarthritis (OA) Additional Past Medical History / Comment(s): NIDDM type II, 1998 LEUKEMIA (CLL- remission), sinus problems, seasonal allergies, tinnitis bilaterally, OA hands, R wrist carpal tunnel, past fx with L elbow, R rotator cuff tendon problems, L rotator cuff tear, left knee pain History of Any Multi-Drug Resistant Organisms: None Reported Past Surgical History: Orthopedic Surgery Additional Past Surgical History / Comment(s): LEFT HAND thumb tendon repair. Past Anesthesia/Blood Transfusion Reactions: No Reported Reaction Past Psychological History: No Psychological Hx Reported Smoking Status: Never smoker Past Alcohol Use History: None Reported Past Drug Use History: None Reported - Past Family History Father Family Medical History: CVA/TIA Additional Family Medical History / Comment(s): Father at the age of 85yrs. Mother Family Medical History: Diabetes Mellitus Additional Family Medical History / Comment(s): Mother at the age of 90yrs. Medications and Allergies Home Medications Medication Instructions Recorded Confirmed Type Cetirizine HCl [Zyrtec] 10 mg PO DAILY 05/25/17 01/24/21 History Montelukast Sodium [Singulair] 10 mg PO DAILY 05/25/17 01/24/21 History lisinopriL [Zestril] 40 mg PO DAILY 05/25/17 01/24/21 History Insulin NPH Hum/Reg Insulin Hm 17 units SQ TID PRN 03/05/20 01/24/21 History [Relion Novolin 70-30 Flexpen] ALPRAZolam [Xanax] 0.25 mg PO BID PRN #6 tab 04/29/20 01/24/21 Rx Fluticasone Nasal [place] [Flonase 1 spr EA NOSTRIL DAILY PRN 01/24/21 01/24/21 History Nasal [place]] HYDROcodone/APAP 5-325MG [[place] 1 tab PO Q6HR PRN 01/24/21 01/24/21 History 5-325] Ketorolac 0.5% Ophth Soln [Acular] 1 drop BOTH EYES BID 01/24/21 01/24/21 History Omeprazole 20 mg PO BID PRN 01/24/21 01/24/21 History Prednisolone Acetate/Pf 1 drop BOTH EYES BID 01/24/21 01/24/21 History [Prednisolone Acet 1% Eye Drop] Allergies Allergy/AdvReac Type Severity Reaction Status Date / Time amoxicillin [From Augmentin] Allergy Rash/Hives Verified 01/24/21 15:57 clavulanic acid Allergy Rash/Hives Verified 01/24/21 15:57 [From Augmentin] Physical Exam Vitals: Vital Signs Temp Pulse Resp BP Pulse Ox 01/25/21 06:47 99 01/25/21 05:27 74 17 161/73 100 01/25/21 04:00 54 L 16 162/98 100 01/24/21 21:56 52 L 18 170/82 97 01/24/21 18:57 62 18 151/86 96 01/24/21 17:31 56 L 18 151/90 97 01/24/21 15:48 59 L 18 166/80 95 01/24/21 13:27 97.8 F 77 18 159/98 99 Results 01/25/21 03:30 01/25/21 03:30 Cardiac Enzymes 01/24/21 01/24/21 01/24/21 Range/Units 13:26 13:26 16:44 AST 23 (17-59) U/L Troponin I <0.012 <0.012 (0.000-0.034) ng/mL 01/24/21 01/25/21 Range/Units 19:31 03:30 AST 24 (17-59) U/L Troponin I <0.012 (0.000-0.034) ng/mL Coagulation 01/24/21 Range/Units 13:26 PT 10.8 (9.0-12.0) sec APTT 22.4 (22.0-30.0) sec CBC 01/24/21 01/25/21 Range/Units 13:26 03:30 WBC 27.9 H 26.7 H (3.8-10.6) k/uL RBC 4.19 L 4.20 L (4.30-5.90) m/uL Hgb 13.5 12.7 L (13.0-17.5) gm/dL Hct 37.7 L 39.1 (39.0-53.0) % Plt Count 119 L 101 L (150-450) k/uL Comprehensive Metabolic Panel 01/24/21 01/25/21 Range/Units 13:26 03:30 Sodium 133 L 136 L (137-145) mmol/L Potassium 3.9 4.5 (3.5-5.1) mmol/L Chloride 99 101 (98-107) mmol/L Carbon Dioxide 27 29 (22-30) mmol/L BUN 15 14 (9-20) mg/dL Creatinine 0.91 0.80 (0.66-1.25) mg/dL Glucose 237 H 134 H (74-99) mg/dL Calcium 9.1 9.0 (8.4-10.2) mg/dL AST 23 24 (17-59) U/L ALT 21 19 (4-49) U/L Alkaline Phosphatase 81 73 (38-126) U/L Total Protein 5.9 L 5.6 L (6.3-8.2) g/dL Albumin 3.9 3.5 (3.5-5.0) g/dL Current Medications Generic Name Dose Route Start Last Admin Trade Name Freq PRN Reason Stop Dose Admin Hydrocodone Bitart/Acetaminophen 1 each 01/24/21 19:47 01/25/21 06:33 Hydrocodone/Apap 5-325mg 1 Each Tab PO 1 each Q6HR PRN Administration Pain Alprazolam 0.25 mg 01/24/21 19:47 01/24/21 22:07 Alprazolam 0.25 Mg Tab PO 0.25 mg BID PRN Administration Anxiety Aspirin 325 mg 01/25/21 09:00 Aspirin 325 Mg Tab PO DAILY [facility] Fluticasone Propionate 1 spray 01/24/21 19:47 Fluticasone 50mcg/[place] Nasal 16gm EA NOSTRIL DAILY PRN Congestion Heparin Sodium (Porcine) 5,000 unit 01/24/21 21:00 01/24/21 22:07 Heparin Sodium,Porcine/Pf 5,000 Unit/0.5 Ml Syringe SQ 5,000 unit Q12HR RAJWINDER Administration Sodium Chloride 1,000 mls @ 20 mls/hr 01/24/21 15:00 01/24/21 15:56 Saline 0.9% IV 20 mls/hr .Q24H RAJWINDER Administration Insulin Aspart 17 unit 01/24/21 19:47 Insuln Asp Prt/Insulin Aspart 100 Unit/Ml 10 Ml Vial SQ TID PRN HIGH BLOOD SUGAR Ketorolac Tromethamine 1 drops 01/24/21 21:00 01/24/21 21:57 Ketorolac 0.5% Ophth Drops 5 Ml Btl BOTH EYES 1 drops BID RAJWINDER Administration Lisinopril 40 mg 01/25/21 09:00 Lisinopril 20 Mg Tab PO DAILY [facility] Loratadine 10 mg 01/25/21 09:00 Loratadine 10 Mg Tab PO DAILY [facility] Montelukast Sodium 10 mg 01/25/21 09:00 Montelukast 10 Mg Tab PO DAILY [facility] Morphine Sulfate 4 mg 01/24/21 14:53 01/24/21 15:57 Morphine Sulfate 4 Mg/Ml Syringe IV 4 mg Q4HR PRN Administration Severe Pain Naloxone HCl 0.2 mg 01/24/21 14:53 Naloxone 0.4 Mg/Ml 1 Ml Vial IV Q2M PRN Opioid Reversal Pantoprazole Sodium 40 mg 01/24/21 21:00 01/24/21 20:11 Pantoprazole 40 Mg/10 Ml Vial IVP 40 mg BID RAJWINDER Administration Prednisolone Acetate 1 drops 01/24/21 21:00 Prednisolone Acetate 1% Ophth Drops 5 Ml Btl BOTH EYES BID [facility] Temazepam 15 mg 01/24/21 19:48 Temazepam 15 Mg Cap PO HS PRN Insomnia 01/25/21 03:30 01/25/21 03:30
--- NOTE | 2021-01-25 12:00 | ECHOF ---
Referral Reason:CP MEASUREMENTS -------- HEIGHT: 182.9 cm WEIGHT: 95.3 kg BP: 159/98 RVIDd: 3.4 cm (< 3.3) IVSd: 1.4 cm (0.6 - 1.1) LVIDd: 4.9 cm (3.9 - 5.3) LVPWd: 1.7 cm (0.6 - 1.1) IVSs: 1.8 cm LVIDs: 3.4 cm LVPWs: 2.0 cm LAESV Index (A-L): 25.24 ml/m Ao Diam: 3.6 cm (2.0 - 3.7) AV Cusp: 2.3 cm (1.5 - 2.6) MV EXCURSION: 24.642 mm (> 18.000) MV EF SLOPE: 124 mm/s (70 - 150) EPSS: 1.1 cm MV E Boni: 0.45 m/s MV DecT: 302 ms MV A Boni: 0.91 m/s MV E/A Ratio: 0.49 RAP: 5.00 mmHg RVSP: 24.39 mmHg FINDINGS -------- Sinus rhythm. This was a technically difficult study with suboptimal apical views. The left ventricular size is normal. There is moderate concentric left ventricular hypertrophy. O verall left ventricular systolic function is normal with, an EF between 55 - 60 %. The diastolic fi lling pattern is normal for the age of the patient 8.69. The right ventricle is mildly enlarged. Normal LA size by volume 22+/-6 ml/m2. The right atrium was not well visualized. xx ml of Lumason was utilized for enhancement of images. Interatrial and interventricular septum intact. The aortic valve is trileaflet and appears structurally normal. There is no evidence of aortic regu rgitation. There is no evidence of aortic stenosis. There is trace mitral regurgitation. Mild tricuspid regurgitation present. There is no evidence of pulmonary hypertension. The right v entricular systolic pressure, as measured by Doppler, is 24.39mmHg. There is no pulmonic regurgitation present. The aortic root size is normal. IVC Not well visulized. There is no pericardial effusion. CONCLUSIONS -------- 1. The left ventricular size is normal. 2. There is moderate concentric left ventricular hypertrophy. 3. Overall left ventricular systolic function is normal with, an EF between 55 - 60 %. 4. The right ventricle is mildly enlarged. 5. There is trace mitral regurgitation. 6. Mild tricuspid regurgitation present. CDL INSTRUCTOR: Kortney Wagner RDCS
[2021-01-25 14:54] LABS: C Reactive Protein 0.7 mg/dL (<1.0)
[2021-01-25 14:54] LABS: Glucose,Whole Blood 192 mg/dL (75-99)
--- NOTE | 2021-01-25 15:35 | PN ---
PROGRESS NOTE DATE OF SERVICE: 01/25/2021 This 75-year-old gentleman was admitted with chest pain, scheduled for stress test tomorrow by Cardiology. A chest CTA was done to rule out the possibility of acute pulmonary embolism. CTA showed cardiomegaly with mild pulmonary interstitial infiltrates and atelectasis. PHYSICAL EXAMINATION: On exam, alert and oriented x3. Pulse is 55, blood pressure 159/60, respiration 16, temperature 97.8, pulse ox 100% on 2 L. HEENT: Conjunctivae normal. NECK: No jugular venous distention. CARDIOVASCULAR: S1, S2 muffled. RESPIRATORY: Breath sounds diminished at the bases. A few scattered rhonchi and crackles. ABDOMEN: Soft, nontender. NERVOUS SYSTEM: No focal deficits. LABS: WBC 26.7 secondary to leukemia. Sodium 136. ASSESSMENT: 1. Chest pain, possible unstable angina. 2. Rule out bilateral interstitial infiltrate. 3. Pulmonary embolism, unlikely per CT scan. 4. Diabetes mellitus type 2. 5. Gastroesophageal reflux disease. 6. History of degenerative joint disease. 7. History of chronic lymphoid leukemia, in remission. 8. Hyponatremia. 9. FULL CODE. RECOMMENDATIONS AND DISCUSSION: Recommend to continue current medications, continue symptomatic treatment. Otherwise follow closely with Cardiology, stress test. Otherwise, COVID-19 was negative also. Recommend inflammatory markers also at this time. Continue to monitor. MMODL / IJN: [id number] /
[2021-01-25 15:45] LABS: Appearance,Urine Clear (Clear); Bilirubin,Urine Negative (Negative); Blood,Urine Negative (Negative); Color,Urine Light Yellow; Glucose,Urine (UA) Trace (Negative); Ketones,Urine Negative (Negative); Leukocyte Esterase,Urine Negative (Negative); Nitrite,Urine Negative (Negative); Protein,Urine Negative (Negative); Specific Gravity,Urine 1.012 (1.001-1.035); Urobilinogen,Urine <2.0 mg/dL (<2.0)
[2021-01-25] MEDS: SODIUM CHLORIDE 0.9% 1,000 ML IV SCH (16:35)
[2021-01-25 16:56] LABS: Glucose,Whole Blood 197 mg/dL (75-99)
[2021-01-25 21:02] LABS: Glucose,Whole Blood 194 mg/dL (75-99)
[2021-01-25] MEDS: ATORVASTATIN 40 MG TAB PO SCH (21:12)
[2021-01-25] MEDS: PANTOPRAZOLE 40 MG TABLET PO SCH (21:13)
[2021-01-25] MEDS: INSULIN ASPART (NovoLOG) 100 UNIT/ML VIAL SQ SCH (21:13)
[2021-01-25] MEDS: INSULN ASP PRT/INSULIN ASPART 100 UNIT/ML 10 ML VIAL SQ SCH (21:14)
[2021-01-25 23:42] LABS: Chol/HDL Ratio 4.89; LDL Cholesterol,Calculated 86.2 mg/dL (0.0-131.0); VLDL Calculation 22.8 mg/dL (5.00-40.00)
[2021-01-26 01:55] LABS: Ferritin 61.9 ng/mL (22.0-322.0)
[2021-01-26] MEDS ORDERED: CAFFEINE CITRATE 60 MG/3 ML VIAL IV PRN (05:00)
[2021-01-26] MEDS ORDERED: AMINOPHYLLINE 500 MG/20 ML VIAL IV PRN (05:00)
[2021-01-26] MEDS: HYDROcodone/APAP 5-325MG 1 EACH TAB PO PRN ×2 (06:13→20:41)
[2021-01-26] MEDS: INSULIN ASPART (NovoLOG) 100 UNIT/ML VIAL SQ SCH ×4 (06:50→20:41)
[2021-01-26] MEDS ORDERED: REGADENOSON 0.4 MG/5 ML SYRINGE IV PRN (07:00)
[2021-01-26 07:19] LABS: Glucose,Whole Blood 142 mg/dL (75-99)
[2021-01-26] MEDS: LORATADINE 10 MG TAB PO SCH (07:34)
[2021-01-26] MEDS: lisinopriL 20 MG TAB PO SCH (07:34)
[2021-01-26] MEDS: PANTOPRAZOLE 40 MG TABLET PO SCH ×2 (07:34→20:41)
[2021-01-26] MEDS: HEPARIN SODIUM,PORCINE/PF 5,000 UNIT/0.5 ML SYRINGE SQ SCH ×2 (07:34→20:41)
[2021-01-26] MEDS: ASPIRIN 81 MG PO SCH (07:34)
[2021-01-26] MEDS: KETOROLAC 0.5% OPHTH DROPS 5 ML BTL BOTH EYES SCH ×2 (07:35→20:42)
[2021-01-26] MEDS: MONTELUKAST 10 MG TAB PO SCH (07:35)
[2021-01-26] MEDS: prednisoLONE ACETATE 1% OPHTH DROPS 5 ML BTL BOTH EYES SCH ×2 (07:35→20:42)
[2021-01-26 07:39] VITALS: RESP 16
--- NOTE | 2021-01-26 11:36 | NM ---
EXAMINATION TYPE: NM stress lexiscan cardiolite DATE OF EXAM: 01/26/2021 COMPARISON: NONE HISTORY: Precordial chest pain and abnormal EKG TECHNIQUE: After the intravenous administration of 10.2 mCi Tc 99m Sestamibi - Cardiolite resting SP ECT images acquired 45 minutes post injection. The patient received 0.4mg Lexiscan, 25.0 mCi Tc 99m Sestamibi - Stress images obtained [address] injection FINDINGS: Review of stress and rest SPECT images demonstrates decreased perfusion on stress images along the in ferior wall. Stress-induced ischemia is difficult Gated analysis shows hypokinesia with an estimated left ventricular ejection fraction of 44 %. IMPRESSION: I cannot exclude stress-induced ischemia.
[2021-01-26 11:49] LABS: Glucose,Whole Blood 111 mg/dL (75-99)
[2021-01-26 13:25] LABS: Glucose,Whole Blood 110 mg/dL (75-99)
[2021-01-26] MEDS: INSULN ASP PRT/INSULIN ASPART 100 UNIT/ML 10 ML VIAL SQ SCH ×2 (13:25→17:25)
[2021-01-26] MEDS ORDERED: NITROGLYCERIN SL TABS 0.4 MG TAB SUBLINGUAL PRN (14:31)
[2021-01-26] MEDS ORDERED: HEPARIN SODIUM,PORCINE 2,500 UNIT in SODIUM CHLORIDE 0.9% 250 ML IRRIGATION PRN (14:40)
[2021-01-26] MEDS ORDERED: HEPARIN SODIUM,PORCINE 10,000 UNIT in SODIUM CHLORIDE 0.9% 1,000 ML IRRIGATION PRN (14:41)
[2021-01-26] MEDS ORDERED: SODIUM CHLORIDE 0.9% 1,000 ML in EMPTY BAG 1 BAG IV ONE (14:42)
--- NOTE | 2021-01-26 14:51 | P.PN ---
Subjective This is a pleasant 75-year-old male past medical history significant for CLL since 1998, diabetes mellitus, hypertension, osteoarthritis and poor functional capacity. 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 We have been asked to see in consultation for chest pain. EKG reveals sinus mechanism with nonspecific T wave abnormalities noted in lead V1. Telemetry tracings indicate sinus mechanism. Chest xray subtle peripheral densities bilaterally. Could be early interstitial infiltrate/atypical pneumonia. CTA is negative for pulmonary embolism.Current cardiac medications include lisinopril 40 mg daily. Echocardiogram on 01/24/21 revealed an EF between 5560 percent, RV is mildly enlarged, trace MR, mild TR. 01/26/21: Patient scheduled for Lexiscan stress test today. Patient alert and oriented x 3. Continues to have chest discomfort radiating to the left shoulder, but it has improved from yesterday. Results from the stress test revealed decreased perfusion stress images along the inferior wall, cannot exclude stress-induced ischemia. PHYSICAL EXAMINATION Blood pressure 137/76 heart rate 53 afebrile and maintaining oxygen saturation on nasal cannula. CONSTITUTIONAL: No apparent distress. HEENT: Head is normocephalic. Pupils are equal, round. Sclerae anicteric. Mucous membranes of the mouth are moist. No JVD. No carotid bruit. CHEST EXAMINATION: Lungs are clear to auscultation. No chest wall tenderness is noted on palpation or with deep breathing. HEART EXAMINATION: Regular rate and rhythm. S1, S2 heard. No murmurs, gallops or rub. ABDOMEN: Soft, nontender. Positive bowel sounds. EXTREMITIES: 2+ peripheral pulses, no lower extremity edema and no calf tenderness. NEUROLOGIC EXAMINATION: Patient is awake, alert and oriented x3. ASSESSMENT Chest pain, atypical, An acute coronary event has been ruled out. Hypertension Diabetes mellitus CLL, follows with Dr. Haro Poor functional capacity due to arthritis PLAN We will proceed with Cardiac catheterization with Dr. Macdonald today. I have discussed the risks, benefits and alternative therapies for the above-mentioned procedure and for both sedation/analgesia as well as necessary blood product ad ministration, if indicated, as they pertain to this patient. The patient has indicated understanding and acceptance of the risks and procedures discussed. Questions have been answered appropriately and he is agreeable to move forward with the above-stated procedure. Due to his history of diabetes mellitus recommend to continue atorvastatin 40 mg daily. Continue lisinopril as previously ordered. Nurse Practitioner note has been reviewed, I agree with a documented findings and plan of care. Patient was seen and examined. Objective - Vital Signs Vital signs: Vital Signs Temp 97.7 F 01/26/21 07:00 Pulse 53 L 01/26/21 08:00 Resp 16 01/26/21 08:00 BP 137/76 01/26/21 07:00 Pulse Ox 99 01/26/21 07:00 Intake & Output 01/25/21 01/26/21 01/26/21 18:59 06:59 18:59 Output Total 600 Balance -600 Weight 95.254 kg 95.25 kg Output: Urine 600 Other: Voiding Method Urinal # Voids 1 - Labs CBC & Chem 7: 01/25/21 03:30 01/25/21 03:30 Labs: Abnormal Lab Results - Last 24 Hours (Table) 01/25/21 01/25/21 01/25/21 Range/Units 03:30 14:52 15:28 POC Glucose (mg/dL) 192 H (75-99) mg/dL HDL Cholesterol 28.0 L (40.0-60.0) mg/dL Urine Glucose (UA) Trace H (Negative) 01/25/21 01/25/21 01/26/21 Range/Units 16:55 21:00 07:18 POC Glucose (mg/dL) 197 H 194 H 142 H (75-99) mg/dL HDL Cholesterol (40.0-60.0) mg/dL Urine Glucose (UA) (Negative)
[2021-01-26] MEDS: SODIUM CHLORIDE 0.9% 1,000 ML IV SCH (15:53)
[2021-01-26] MEDS ORDERED: VERAPAMIL 2.5 MG/ML 2 ML AMP ONE (16:12)
[2021-01-26] MEDS ORDERED: LIDOCAINE 1% INJ 10MG/ML (20 ML MDV) ONE (16:12)
[2021-01-26] MEDS ORDERED: IV FLUID CONTINUATION 1,000 ML IV ONE (16:17)
[2021-01-26] MEDS ORDERED: HEPARIN SODIUM 1,000 UN/ML (10ML VL) ONE (16:20)
--- NOTE | 2021-01-26 16:30 | PN ---
PROGRESS NOTE DATE OF SERVICE: 01/26/2021 This 75-year-old gentleman who was admitted with chest pain scheduled to have a stress test today and the stress test showed findings cannot exclude stress-induced ischemia. Cardiology recommending cardiac catheterization at this time. The chest x-ray also showed vague infiltrate/atelectasis also. No chest pain. No palpitations. No fever. Inflammatory markers are not elevated at this time. No chest pain. No palpitations. No fever. PHYSICAL EXAMINATION: Alert and oriented x3. Pulse 53, blood pressure 137/76, respirations 16, temperature 97.7, pulse ox 99% on 2 L. HEENT: Conjunctivae normal. NECK: No jugular venous distention. CARDIOVASCULAR: S1, S2 muffled. RESPIRATORY: Breath sounds diminished at the bases. A few scattered rhonchi. ABDOMEN: Soft, nontender. LEGS: No edema. No swelling. NERVOUS SYSTEM: No focal deficits. LABS: WBC 26.7. Sodium 136. ASSESSMENT: 1. Chest pain, possible unstable angina. 2. Indeterminate stress test. 3. Rule out bilateral interstitial infiltrate. 4. Pulmonary embolism unlikely per CAT scan. 5. Diabetes mellitus type 2. 6. Gastroesophageal reflux disease history. 7. History of degenerative joint disease. 8. History of chronic lymphoid leukemia in remission. 9. Hyponatremia. 10.FULL CODE. RECOMMENDATIONS AND DISCUSSION: Recommend to continue current medications. Continue symptomatic treatment. Otherwise at this time I recommend procalcitonin. Cardiac Cardiology. Guarded prognosis. Continue rest of medications. Prognosis guarded. Further recommendations to follow. MMODL / IJN: [id number] / MTDD
[2021-01-26] MEDS ORDERED: HYDROmorphone 0.5 MG/0.5 ML SYRINGE IVP ONE (16:35)
[2021-01-26] MEDS ORDERED: MIDAZOLAM 2 MG/2 ML VIAL IV ONE ×2 (16:35→16:41)
[2021-01-26] MEDS ORDERED: LIDOCAINE 1% INJ 10MG/ML (20 ML MDV) SQ ONE ×2 (16:36→16:37)
[2021-01-26] MEDS ORDERED: VERAPAMIL SYRINGE (5 MG/10 ML) INTRAARTER ONE (16:39)
[2021-01-26] MEDS ORDERED: IOPAMIDOL-370 125ML BTL INJ ONE (16:52)
[2021-01-26] MEDS ORDERED: RX INFO: IV CONTRAST WAS GIVEN 1 EACH MISC MISCELLANE PRN (16:53)
[2021-01-26] MEDS ORDERED: SODIUM CHLORIDE 0.9% 1,000 ML IV SCH (17:00)
--- NOTE | 2021-01-26 17:00 | P.PCN ---
Date of Procedure: 01/26/21 Operative Findings: CARDIAC CATHETERIZATION PERFORMING PHYSICIAN: Waldemar Macdonald MD, RPVI PROCEDURE PERFORMED: 1. Selective right and left coronary angiogram 2. Left heart catheterization INDICATION: Chest discomfort in this 75-year-old gentleman who underwent myocardial perfusion imaging stress is and that came in to be abnormal COMPLICATION: None APPROACH: Right radial artery LEVEL OF SEDATION: Moderate with a sedation length of 13 minutes PROCEDURE DESCRIPTION: After obtaining an informed consent, the patient was brought to cardiac laborer hoisting. Local anesthesia was performed using lidocaine subcutaneously. The right radial artery was cannulated using Seldinger technique, the guidewire passed easily, following that we advanced a 5-Ethiopian sheath dilator assembly, the wire and dilator were removed and sheath was flushed. Following that, 2 mg of verapamil along with [id number] unit heparin were given. Selective right and left coronary angiogram using a 6-Ethiopian JR4 and JL 3.5 catheters. Following that we did left heart catheterization using 6-Ethiopian pigtail catheter. The procedure was completed there was no complication. SELECTIVE CORONARY ANGIOGRAM: The right coronary artery: Is a large caliber vessel and a dominant vessel. The mid RCA has a lesion appeared to be in the range of 50%. Distally bifurcates into PDA and PLV branches both appeared to be angiographically normal Left main: Is angiographically normal. Bifurcates into LCx and LAD The left circumflex: Is a large caliber vessel and on dominant vessel. The LCx in the midportion has mild disease only. The left anterior descending artery: Is a large caliber vessel. The proximal LAD appears to be normal and gives rises into the first and second diagonal branches both appeared to be angiographically normal in the mid LAD is normal as well and gives rises into third diagonal branch which seems to be normal and the LAD distally appears to have mild disease only. HEMODYNAMICS: The LVEDP was 4 mmHg without significant gradient across aortic valve CONCLUSION: 1. Intermediate disease involving the mid RCA 2. Mild disease involving the left coronary system POSTPROCEDURE MANAGEMENT: Medical treatment
[2021-01-26 17:15] LABS: Glucose,Whole Blood 99 mg/dL (75-99)
[2021-01-26 20:23] LABS: Glucose,Whole Blood 135 mg/dL (75-99)
[2021-01-26] MEDS: ATORVASTATIN 40 MG TAB PO SCH (20:41)
--- NOTE | 2021-01-26 20:47 | EST ---
EXERCISE STRESS DATE OF SERVICE: INDICATION: Chest pain. AGE: 75 SEX: M HT: 6 ft. WT: 209 lbs. PROTOCOL: Lexiscan STAGE: N/A DURATION OF EXERCISE: N/A HEART RATE REST: 64 BLOOD PRESSURE REST: 154/83 MAXIMUM HEART RATE ACHIEVED: 83 MAXIMUM BLOOD PRESSURE: 154/83 85% MPHR: 125 100% MPHR: 147 METS: N/A STRESS DATA: Heart rate is 64, pressure is 154/83 mmHg. Baseline EKG showed sinus mechanism. 0.4 mg of Lexiscan given over 15 seconds per protocol. Max heart rate was 83 beats per minute. Maximum pressure was 139/76 mmHg. Clinically, the patient did not have any symptoms and the EKG did not show any significant ST or T-wave abnormalities concerning for ischemia. CONCLUSION: 1. Nondiagnostic electrocardiogram stress testing in response to Lexiscan. 2. Please follow up on the Cardiolite portion on a separate report from Radiology Department. MMODL / IJN: [id number] /
[2021-01-27] MEDS ORDERED: SODIUM CHLORIDE 0.9% 1,000 ML in EMPTY BAG 1 BAG IV ONE
[2021-01-27] MEDS: INSULN ASP PRT/INSULIN ASPART 100 UNIT/ML 10 ML VIAL SQ SCH ×2 (00:01→09:52)
[2021-01-27] MEDS: HYDROcodone/APAP 5-325MG 1 EACH TAB PO PRN ×2 (01:38→08:04)
[2021-01-27] MEDS ORDERED: HEPARIN SODIUM,PORCINE 2,500 UNIT in SODIUM CHLORIDE 0.9% 250 ML IRRIGATION PRN (07:00)
[2021-01-27] MEDS ORDERED: HEPARIN SODIUM,PORCINE 10,000 UNIT in SODIUM CHLORIDE 0.9% 1,000 ML IRRIGATION PRN (07:00)
[2021-01-27 07:08] LABS: African American GFR (CKD) >90 (>60 ml/min/1.73 sqM); Anion Gap 7 mmol/L; Blood Urea Nitrogen 20 mg/dL (9-20); Calcium 8.8 mg/dL (8.4-10.2); Carbon Dioxide 25 mmol/L (22-30); Chloride 102 mmol/L (98-107); Glucose 112 mg/dL (74-99); Non-African American GFR(CKD) 87 (>60 ml/min/1.73 sqM); Sodium 134 mmol/L (137-145)
[2021-01-27 07:17] LABS: Glucose,Whole Blood 121 mg/dL (75-99)
[2021-01-27 07:22] LABS: Basophils # (A) 0.1 k/uL (0-0.2); Basophils % (A) 1 %; Eosinophils # (A) 0.1 k/uL (0-0.7); Eosinophils % (A) 0 %; HCT 36.7 % (39.0-53.0); HGB 12.9 gm/dL (13.0-17.5); Lymphocytes % (A) 80 %; MCH 31.7 pg (25.0-35.0); MCHC 35.2 g/dL (31.0-37.0); MCV 90.3 fL (80.0-100.0); Mean Platelet Volume 7.7; Monocytes # (A) 0.4 k/uL (0-1.0); Monocytes % (A) 2 %; Neutrophils % (A) 14 %; RBC 4.07 m/uL (4.30-5.90); RDW 13.1 % (11.5-15.5); WBC 21.2 k/uL (3.8-10.6)
[2021-01-27] MEDS: INSULIN ASPART (NovoLOG) 100 UNIT/ML VIAL SQ SCH (08:03)
[2021-01-27] MEDS: MONTELUKAST 10 MG TAB PO SCH (08:04)
[2021-01-27] MEDS: LORATADINE 10 MG TAB PO SCH (08:04)
[2021-01-27] MEDS: lisinopriL 20 MG TAB PO SCH (08:04)
[2021-01-27] MEDS: ASPIRIN 81 MG PO SCH (08:04)
[2021-01-27] MEDS: PANTOPRAZOLE 40 MG TABLET PO SCH (08:04)
[2021-01-27] MEDS: prednisoLONE ACETATE 1% OPHTH DROPS 5 ML BTL BOTH EYES SCH (08:06)
[2021-01-27] MEDS: KETOROLAC 0.5% OPHTH DROPS 5 ML BTL BOTH EYES SCH (08:07)
[2021-01-27] MEDS: HEPARIN SODIUM,PORCINE/PF 5,000 UNIT/0.5 ML SYRINGE SQ SCH (08:07)
[2021-01-27 08:21] LABS: Platelet Count 95 k/uL (150-450)
[2021-01-27 08:48] LABS: Glucose,Whole Blood 160 mg/dL (75-99)
[2021-01-27 09:08] VITALS: BP 134/75; PULSE 70; TEMP 98
[2021-01-27 11:48] LABS: Glucose,Whole Blood 161 mg/dL (75-99)
--- NOTE | 2021-01-27 13:59 | P.PN ---
Subjective This is a pleasant 75-year-old male past medical history significant for CLL since 1998, diabetes mellitus, hypertension, osteoarthritis and poor functional capacity. 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 We have been asked to see in consultation for chest pain. EKG reveals sinus mechanism with nonspecific T wave abnormalities noted in lead V1. Telemetry tracings indicate sinus mechanism. Chest xray subtle peripheral densities bilaterally. Could be early interstitial infiltrate/atypical pneumonia. CTA is negative for pulmonary embolism.Current cardiac medications include lisinopril 40 mg daily. Echocardiogram on 01/24/21 revealed an EF between 5560 percent, RV is mildly enlarged, trace MR, mild TR. 01/26/21: Lexiscan stress test- revealed decreased perfusion stress images along the inferior wall, cannot exclude stress-induced ischemia. Patient underwent cardiac catheterization with Dr. Macdonald which revealed intermediate disease involving the mid RCA and mild disease involving the left coronary system recommended medical therapy. 01/27/21: Patient seen and examined at bedside, sitting up in bedside chair. No apparent distress. Patient denies chest pain shortness of breath palpitations lightheadedness or dizziness. Right radial SITE is clean, dry, open to air, no hematoma, 2+ pulses blood pressure 134/75, heart rate 70, afebrile, maintaining oxygen saturations 94% on room air laboratory data reviewed sodium 134, potassium 4.0, serum creatinine 0.85, BUN 20 PHYSICAL EXAMINATION CONSTITUTIONAL: No apparent distress. HEENT: Head is normocephalic. No JVD. No carotid bruit. CHEST EXAMINATION: Lungs are clear to auscultation. HEART EXAMINATION: Regular rate and rhythm. S1, S2 heard. No murmurs, gallops or rub. ABDOMEN: Soft, nontender. Positive bowel sounds. EXTREMITIES: 2+ peripheral pulses, no lower extremity edema and no calf tenderne ss. NEUROLOGIC EXAMINATION: Patient is awake, alert and oriented x3. ASSESSMENT Chest pain, atypical, An acute coronary event has been ruled out. Nonobstructive coronary artery disease. Hypertension Diabetes mellitus CLL, follows with Dr. Haro Poor functional capacity due to arthritis PLAN From cardiology perspective patient is stable for discharge home. We'll continue aspirin 81 mg daily, atorvastatin 40 mg daily and lisinopril 40 mg daily Patient to follow up with Dr. Macdonald in the office in one week Thank you kindly for this consultation Nurse Practitioner note has been reviewed, I agree with a documented findings and plan of care. Patient was seen and examined. Objective - Vital Signs Vital signs: Vital Signs Temp 98.0 F 01/27/21 07:00 Pulse 70 01/27/21 07:00 Resp 16 01/27/21 07:00 BP 134/75 01/27/21 07:00 Pulse Ox 94 L 01/27/21 07:00 Intake & Output 01/26/21 01/27/21 01/27/21 18:59 06:59 18:59 Intake Total 200 Balance 200 Weight 95.25 kg Intake: IV 200 Other: Voiding Method Urinal Urinal # Voids 1 2 - Labs CBC & Chem 7: 01/27/21 06:01 01/27/21 06:01 Labs: Abnormal Lab Results - Last 24 Hours (Table) 01/26/21 01/26/21 01/26/21 Range/Units 11:47 13:22 20:22 WBC (3.8-10.6) k/uL RBC (4.30-5.90) m/uL Hgb (13.0-17.5) gm/dL Hct (39.0-53.0) % Plt Count (150-450) k/uL Lymphocytes # (1.0-4.8) k/uL Sodium (137-145) mmol/L Glucose (74-99) mg/dL POC Glucose (mg/dL) 111 H 110 H 135 H (75-99) mg/dL 01/27/21 01/27/21 01/27/21 Range/Units 06:01 06:01 07:15 WBC 21.2 H (3.8-10.6) k/uL RBC 4.07 L (4.30-5.90) m/uL Hgb 12.9 L (13.0-17.5) gm/dL Hct 36.7 L (39.0-53.0) % Plt Count 95 L (150-450) k/uL Lymphocytes # 17.0 H (1.0-4.8) k/uL Sodium 134 L (137-145) mmol/L Glucose 112 H (74-99) mg/dL POC Glucose (mg/dL) 121 H (75-99) mg/dL 01/27/21 Range/Units 08:47 WBC (3.8-10.6) k/uL RBC (4.30-5.90) m/uL Hgb (13.0-17.5) gm/dL Hct (39.0-53.0) % Plt Count (150-450) k/uL Lymphocytes # (1.0-4.8) k/uL Sodium (137-145) mmol/L Glucose (74-99) mg/dL POC Glucose (mg/dL) 160 H (75-99) mg/dL
--- NOTE | 2021-01-28 08:55 | P.DS ---
Providers Date of admission: 01/27/21 09:13 Expected date of discharge: 01/27/21 Attending physician: Marisol Morris Consults: 01/24/21 14:54 Consult Physician Routine Consulting Provider: Alfonzo Bailon Consult Reason/Comments: CP rule out Do you want consulting provider notified?: Yes Primary care physician: Edgard Noriega [facility] Course: Final diagnosis Chest pain, possible unstable angina Indeterminant stress test Rule out bilateral interstitial infiltrate Pulmonary embolism unlikely per CAT scan Diabetes mellitus type 2 Gastroesophageal reflux disease history History of degenerative joint disease history of chronic lymphoid leukemia in remission Hyponatremia Full code Discharge disposition Patient is being discharged in a stable condition with guarded prognosis to home. Patient will follow-up with Dr. Noriega upon discharge. Patient also instructed to follow-up with cardiology Dr. Macdonald in the outpatient setting. Patient will continue with aspirin and Lipitor in the outpatient setting. Total time taken is greater than 35 minutes. Hospital course This is a 75-year-old male who was recently admitted with chest pain and is being closely monitored. Cardiology following the patient and patient underwent stress test which findings could not exclude stress-induced ischemia and therefore patient underwent cardiac catheterization with cardiology Dr. Macdonald showing intermediate disease involving the mid RCA and mild disease involving left coronary system and patient will be continued on medical management. Patient will be following up with Dr. Macdonald in one week outpatient. Patient is requesting to go home today. Currently no reports of chest pain, shortness of breath, or palpitations. Patient is afebrile. No reports of nausea or vomiting and patient is tolerating diet. Patient will be discharged home today. Guarded prognosis. On exam vital signs are stable. Cardio S1, S2 are muffled. Respiratory shows diminished breath sounds at the bases with no wheezing or rhonchi noted. Abdomen is soft and nontender. Nervous system shows no focal deficits. Please refer to medication reconciliation sheet for a list of medications. Patient Condition at Discharge: Stable Plan - Discharge Summary Discharge Rx Participant: No New Discharge Prescriptions: New Aspirin 81 mg PO DAILY 30 Days #30 chew Atorvastatin [Lipitor] 40 mg PO HS 30 Days #30 tab Continue Montelukast Sodium [Singulair] 10 mg PO DAILY lisinopriL [Zestril] 40 mg PO DAILY Cetirizine HCl [Zyrtec] 10 mg PO DAILY Insulin NPH Hum/Reg Insulin Hm [Relion Novolin 70-30 Flexpen] 17 units SQ TID PRN PRN Reason: HIGH BLOOD SUGAR ALPRAZolam [Xanax] 0.25 mg PO BID PRN #6 tab PRN Reason: Anxiety Prednisolone Acetate/Pf [Prednisolone Acet 1% Eye Drop] 1 drop BOTH EYES BID Fluticasone Nasal Petroleum [Flonase Nasal Petroleum] 1 spr EA NOSTRIL DAILY PRN PRN Reason: Congestion Ketorolac 0.5% Ophth Soln [Acular 0.5%] 1 drop BOTH EYES BID HYDROcodone/APAP 5-325MG [[place] 5-325] 1 tab PO Q6HR PRN PRN Reason: Pain Omeprazole 20 mg PO BID PRN PRN Reason: GERDS Discharge Medication List Cetirizine HCl [Zyrtec] 10 mg PO DAILY 05/25/17 [History] Montelukast Sodium [Singulair] 10 mg PO DAILY 05/25/17 [History] lisinopriL [Zestril] 40 mg PO DAILY 05/25/17 [History] Insulin NPH Hum/Reg Insulin Hm [Relion Novolin 70-30 Flexpen] 17 units SQ TID PRN 03/05/20 [History] ALPRAZolam [Xanax] 0.25 mg PO BID PRN #6 tab 04/29/20 [Rx] Fluticasone Nasal Petroleum [Flonase Nasal Petroleum] 1 spr EA NOSTRIL DAILY PRN 01/24/21 [History] HYDROcodone/APAP 5-325MG [[place] 5-325] 1 tab PO Q6HR PRN 01/24/21 [History] Ketorolac 0.5% Ophth Soln [Acular 0.5%] 1 drop BOTH EYES BID 01/24/21 [History] Omeprazole 20 mg PO BID PRN 01/24/21 [History] Prednisolone Acetate/Pf [Prednisolone Acet 1% Eye Drop] 1 drop BOTH EYES BID 01/24/21 [History] Aspirin 81 mg PO DAILY 30 Days #30 chew 01/26/21 [Rx] Atorvastatin [Lipitor] 40 mg PO HS 30 Days #30 tab 01/26/21 [Rx] Follow up Appointment(s)/Referral(s): Waldemar Macdonald MD [STAFF PHYSICIAN] - 1 Week (Office will call with appointment ) Edgard Noriega DO [Primary Care Provider] - 1-2 days Ambulatory/Diagnostic Orders: Complete Blood Count w/diff [LAB.AMB] Time Frame: 3 Days, Location: None Selected Patient Instructions/Handouts: Chest Pain (DC), Heart Healthy Diet (ED) Activity/Diet/Wound Care/Special Instructions: Activity Limited until follow-up Follow-up with primary care provider upon discharge follow up with Cardiology outpatient Continue current diet Continue to monitor blood sugars before meals and at bedtime and keep a diary for primary care follow-up Discharge Disposition: HOME SELF-CARE
== END 2021-01-27 12:35 | disposition home or self-care (01) | DRG 287 ==
LOC: EC 13:12 → 6NMEDSUR 14:51 → OBSVTOIN 01-27 09:13
PROVIDERS: ADMIT Hospitalist; ATTEND Hospitalist
PROC: B2111ZZ Fluoroscopy of Multiple Coronary Arteries using Low Osmolar Contrast (ICD-10-PCS; principal; 2021-01-26 15:30)
PROC: 4A023N7 Measurement of Cardiac Sampling and Pressure, Left Heart, Percutaneous Approach (ICD-10-PCS; principal; 2021-01-26 15:30)
DX: I25.110 Atherosclerotic heart disease of native coronary artery with unstable angina pectoris (principal); C91.11 Chronic lymphocytic leukemia of B-cell type in remission; E87.1 Hypo-osmolality and hyponatremia; J98.11 Atelectasis; I10 Essential (primary) hypertension; E11.9 Type 2 diabetes mellitus without complications; I11.9 Hypertensive heart disease without heart failure; K21.9 Gastro-esophageal reflux disease without esophagitis; M19.041 Primary osteoarthritis, right hand; M19.042 Primary osteoarthritis, left hand; G56.01 Carpal tunnel syndrome, right upper limb; M25.562 Pain in left knee; Z82.3 Family history of stroke; Z83.3 Family history of diabetes mellitus; Z79.82 Long term (current) use of aspirin; Z79.4 Long term (current) use of insulin; Z79.899 Other long term (current) drug therapy; Z88.0 Allergy status to penicillin; Z88.8 Allergy status to other drugs, medicaments and biological substances; J30.2 Other seasonal allergic rhinitis; Z20.822 Contact with and (suspected) exposure to COVID-19; H93.13 Tinnitus, bilateral
CPT/HCPCS: 36415; 71046; 71275; 78452; 80048; 80053; 80061; 81003; 82728; 83615; 83690; 83735; 83880; 84145; 84484; 85025; 85379; 85610; 85730; 86140; 87635; 93005; 93017; 93306; 93458; 96372; 96374; 96375; 99285

== ENCOUNTER 2021-02-13 11:17 | Observation (INO) | payer MEDICARE ==
[2021-02-13] MEDS ORDERED: NITROGLYCERIN OINT 1 INCH/GM PACKET TOPICAL STA (11:26)
[2021-02-13] MEDS ORDERED: SODIUM CHLORIDE 0.9% 500 ML 500 ML IV STA (11:26)
--- NOTE | 2021-02-13 11:38 | ED ---
General Adult HPI - General Stated complaint: Chest Pain Time Seen by Provider: 02/13/21 11:17 Source: patient, RN notes reviewed, old records reviewed - History of Present Illness Initial comments: This is a 75-year-old male with past medical history significant for diabetes hypertension high cholesterol. Patient states that he had a cardiac catheterization about 3 weeks ago because he was having chest pain. Patient had a 50% occlusion on the right coronary artery. Patient comes in today because since last He's been having some shortness of breath and occasional slight chest pain however last night he started having significant chest pain that radiates down the arm and up into the jaw he was very short of breath and diaphoretic and mildly nauseated. Patient states that the pain was continuous since last night until today and his symptoms EMS gave nitroglycerin the pain was considerably better. Patient denies any recent fever chills or cough. Patient denies abdominal pain patient has nausea vomiting diarrhea. Patient denies any calf pain or leg swelling. - Related Data Home Medications Medication Instructions Recorded Confirmed Cetirizine HCl [Zyrtec] 10 mg PO DAILY 05/25/17 01/24/21 Montelukast Sodium [Singulair] 10 mg PO DAILY 05/25/17 01/24/21 lisinopriL [Zestril] 40 mg PO DAILY 05/25/17 01/24/21 Insulin NPH Hum/Reg Insulin Hm 17 units SQ TID PRN 03/05/20 01/24/21 [Relion Novolin 70-30 Flexpen] Fluticasone Nasal [place] [Flonase 1 spr EA NOSTRIL DAILY PRN 01/24/21 01/24/21 Nasal [place]] HYDROcodone/APAP 5-325MG [[place] 1 tab PO Q6HR PRN 01/24/21 01/24/21 5-325] Ketorolac 0.5% Ophth Soln [Acular 1 drop BOTH EYES BID 01/24/21 01/24/21 0.5%] Omeprazole 20 mg PO BID PRN 01/24/21 01/24/21 Prednisolone Acetate/Pf 1 drop BOTH EYES BID 01/24/21 01/24/21 [Prednisolone Acet 1% Eye Drop] Previous Rx's Medication Instructions Recorded ALPRAZolam [Xanax] 0.25 mg PO BID PRN #6 tab 04/29/20 Aspirin 81 mg PO DAILY 30 Days #30 chew 01/26/21 Atorvastatin [Lipitor] 40 mg PO HS 30 Days #30 tab 01/26/21 Allergies Allergy/AdvReac Type Severity Reaction Status Date / Time amoxicillin [From Augmentin] Allergy Rash/Hives Verified 02/13/21 11:41 clavulanic acid Allergy Rash/Hives Verified 02/13/21 11:41 [From Augmentin] Review of Systems ROS Statement: Those systems with pertinent positive or pertinent negative responses have been documented in the HPI. ROS Other: All systems not noted in ROS Statement are negative. Past Medical History Past Medical History: Cancer, Diabetes Mellitus, GERD/Reflux, Hypertension, Osteoarthritis (OA) Additional Past Medical History / Comment(s): NIDDM type II, 1999 LEUKEMIA (CLL-remission), sinus problems, seasonal allergies, tinnitis bilaterally, OA hands, R wrist carpal tunnel, past fx with L elbow, R rotator cuff tendon problems, L rotator cuff tear, left knee pain History of Any Multi-Drug Resistant Organisms: None Reported Past Surgical History: Orthopedic Surgery Additional Past Surgical History / Comment(s): LEFT HAND thumb tendon repair. Past Anesthesia/Blood Transfusion Reactions: No Reported Reaction Smoking Status: Never smoker - Past Family History Father Family Medical History: CVA/TIA Additional Family Medical History / Comment(s): Father at the age of 85yrs. Mother Family Medical History: Diabetes Mellitus Additional Family Medical History / Comment(s): Mother at the age of 90yrs. General Exam - General Exam Comments Initial Comments: GENERAL: Patient is well-developed and well-nourished. Patient is nontoxic and well- hydrated and is in mild distress. ENT: Neck is soft and supple. No significant lymphadenopathy is noted. Oropharynx is clear. Moist mucous membranes. Neck has full range of motion without eliciting any pain. EYES: The sclera were anicteric and conjunctiva were pink and moist. Extraocular movements were intact and pupils were equal round and reactive to light. Eyelids were unremarkable. PULMONARY: Unlabored respirations. Good breath sounds bilaterally. No audible rales rhonc hi or wheezing was noted. CARDIOVASCULAR: There is a regular rate and rhythm without any murmurs gallops or rubs. ABDOMEN: Soft and nontender with normal bowel sounds. SKIN: Skin is clear with no lesions or rashes and otherwise unremarkable. NEUROLOGIC: Patient is alert and oriented x3. Cranial nerves II through XII are grossly intact. Motor and sensory are also intact. Normal speech, volume and content. Symmetrical smile. MUSCULOSKELETAL: Normal extremities with adequate strength and full range of motion. No lower extremity swelling or edema. No calf tenderness. LYMPHATICS: No significant lymphadenopathy is noted PSYCHIATRIC: Normal psychiatric evaluation. Course Vital Signs 02/13/21 02/13/21 11:37 11:46 Temperature 97.5 F L Pulse Rate 59 L 55 L Respiratory 20 20 Rate Blood Pressure 195/88 163/74 O2 Sat by Pulse 95 95 Oximetry Medical Decision Making - Medical Decision Making EKG shows sinus bradycardia 55 bpm OH interval is 174 QRS is 94 QT interval 422 QTC is 43. Patient's EKG shows no ST segment elevation or depression. Chest x-ray shows no acute abnormality. Patient was started on heparin because of the unstable angina picture. [facility] admitted the patient wrote admitting orders. I consulted cardiology and I continued heparin Nitropaste and heparin for - Lab Data Result diagrams: 02/13/21 11:39 02/13/21 11:39 Lab Results 02/13/21 02/13/21 02/13/21 Range/Units 11:39 11:39 11:39 WBC 31.5 H (3.8-10.6) k/uL RBC 4.35 (4.30-5.90) m/uL Hgb 14.1 (13.0-17.5) gm/dL Hct 39.6 (39.0-53.0) % MCV 90.8 (80.0-100.0) fL MCH 32.4 (25.0-35.0) pg MCHC 35.6 (31.0-37.0) g/dL RDW 13.8 (11.5-15.5) % Plt Count 126 L (150-450) k/uL MPV 7.7 Neutrophils % 17 % Lymphocytes % 76 % Monocytes % 2 % Eosinophils % 1 % Basophils % 1 % Neutrophils # 5.4 (1.3-7.7) k/uL Lymphocytes # 23.9 H (1.0-4.8) k/uL Monocytes # 0.5 (0-1.0) k/uL Eosinophils # 0.2 (0-0.7) k/uL Basophils # 0.2 (0-0.2) k/uL Manual Slide Review Performed RBC Morphology Normal PT 10.6 (9.0-12.0) sec INR 1.0 (<1.2) APTT 22.4 (22.0-30.0) sec Sodium 136 L (137-145) mmol/L Potassium 4.4 (3.5-5.1) mmol/L Chloride 101 (98-107) mmol/L Carbon Dioxide 28 (22-30) mmol/L Anion Gap 7 mmol/L BUN 13 (9-20) mg/dL Creatinine 0.82 (0.66-1.25) mg/dL Est GFR (CKD-EPI)AfAm >90 (>60 ml/min/1.73 sqM) Est GFR (CKD-EPI)NonAf 88 (>60 ml/min/1.73 sqM) Glucose 240 H (74-99) mg/dL Calcium 9.3 (8.4-10.2) mg/dL Magnesium 1.9 (1.6-2.3) mg/dL Total Bilirubin 1.0 (0.2-1.3) mg/dL AST 25 (17-59) U/L ALT 20 (4-49) U/L Alkaline Phosphatase 80 (38-126) U/L Troponin I (0.000-0.034) ng/mL Total Protein 6.2 L (6.3-8.2) g/dL Albumin 4.1 (3.5-5.0) g/dL Coronavirus (PCR) (Not Detectd) 02/13/21 02/13/21 Range/Units 11:39 12:04 WBC (3.8-10.6) k/uL RBC (4.30-5.90) m/uL Hgb (13.0-17.5) gm/dL Hct (39.0-53.0) % MCV (80.0-100.0) fL MCH (25.0-35.0) pg MCHC (31.0-37.0) g/dL RDW (11.5-15.5) % Plt Count (150-450) k/uL MPV Neutrophils % % Lymphocytes % % Monocytes % % Eosinophils % % Basophils % % Neutrophils # (1.3-7.7) k/uL Lymphocytes # (1.0-4.8) k/uL Monocytes # (0-1.0) k/uL Eosinophils # (0-0.7) k/uL Basophils # (0-0.2) k/uL Manual Slide Review RBC Morphology PT (9.0-12.0) sec INR (<1.2) APTT (22.0-30.0) sec Sodium (137-145) mmol/L Potassium (3.5-5.1) mmol/L Chloride (98-107) mmol/L Carbon Dioxide (22-30) mmol/L Anion Gap mmol/L BUN (9-20) mg/dL Creatinine (0.66-1.25) mg/dL Est GFR (CKD-EPI)AfAm (>60 ml/min/1.73 sqM) Est GFR (CKD-EPI)NonAf (>60 ml/min/1.73 sqM) Glucose (74-99) mg/dL Calcium (8.4-10.2) mg/dL Magnesium (1.6-2.3) mg/dL Total Bilirubin (0.2-1.3) mg/dL AST (17-59) U/L ALT (4-49) U/L Alkaline Phosphatase (38-126) U/L Troponin I <0.012 (0.000-0.034) ng/mL Total Protein (6.3-8.2) g/dL Albumin (3.5-5.0) g/dL Coronavirus (PCR) Not Detected (Not Detectd) Critical Care Time Critical Care Time: Yes Total Critical Care Time: 35 Disposition Clinical Impression: Unstable angina pectoris Disposition: ADMITTED IP TO THIS HOSP Referrals: Edgard Schneider DO [Primary Care Provider] - 1-2 days Time of Disposition: 12:45
[2021-02-13 12:11] LABS: ALT 20 U/L (4-49); AST 25 U/L (17-59); African American GFR (CKD) >90 (>60 ml/min/1.73 sqM); Albumin 4.1 g/dL (3.5-5.0); Alkaline Phosphatase 80 U/L (38-126); Anion Gap 7 mmol/L; Blood Urea Nitrogen 13 mg/dL (9-20); Calcium 9.3 mg/dL (8.4-10.2); Carbon Dioxide 28 mmol/L (22-30); Chloride 101 mmol/L (98-107); Glucose 240 mg/dL (74-99); Magnesium 1.9 mg/dL (1.6-2.3); Non-African American GFR(CKD) 88 (>60 ml/min/1.73 sqM); Potassium 4.4 mmol/L (3.5-5.1); Sodium 136 mmol/L (137-145); Total Protein 6.2 g/dL (6.3-8.2)
[2021-02-13 12:20] LABS: Basophils # (A) 0.2 k/uL (0-0.2); Basophils % (A) 1 %; Eosinophils # (A) 0.2 k/uL (0-0.7); Eosinophils % (A) 1 %; HCT 39.6 % (39.0-53.0); HGB 14.1 gm/dL (13.0-17.5); Lymphocytes % (A) 76 %; MCH 32.4 pg (25.0-35.0); MCHC 35.6 g/dL (31.0-37.0); MCV 90.8 fL (80.0-100.0); Mean Platelet Volume 7.7; Monocytes # (A) 0.5 k/uL (0-1.0); Monocytes % (A) 2 %; Neutrophils # (A) 5.4 k/uL (1.3-7.7); Neutrophils % (A) 17 %; Platelet Count 126 k/uL (150-450); RBC 4.35 m/uL (4.30-5.90); RDW 13.8 % (11.5-15.5); WBC 31.5 k/uL (3.8-10.6)
[2021-02-13 12:21] LABS: Lymphocytes # (A) 23.9 k/uL (1.0-4.8)
[2021-02-13 12:23] LABS: Partial Thromboplastin Time 22.4 sec (22.0-30.0); Prothrombin Time 10.6 sec (9.0-12.0)
--- NOTE | 2021-02-13 12:26 | XR ---
EXAMINATION TYPE: XR chest 2V DATE OF EXAM: 02/13/2021 COMPARISON: 01/24/2021 INDICATION: Chest pain TECHNIQUE: Frontal and lateral views of the chest are obtained. FINDINGS: The heart size is normal. The pulmonary vasculature is normal. The lungs are clear. IMPRESSION: 1. No acute pulmonary process.
[2021-02-13] MEDS ORDERED: HEPARIN SOD,PORK IN 0.45% NACL 25,000 UNIT in 0.45% NACL 1 250ML.BAG IV SCH (12:45)
[2021-02-13] MEDS ORDERED: HEPARIN SODIUM 1,000 UN/ML (10ML VL) IV STA (12:45)
[2021-02-13 14:17] VITALS: RESP 18
[2021-02-13] MEDS: NITROGLYCERIN SL TABS 0.4 MG TAB SUBLINGUAL PRN ×3 (15:21→15:38)
[2021-02-13] MEDS ORDERED: FLUTICASONE 50MCG/SPRAY NASAL 16GM EA NOSTRIL PRN (16:11)
[2021-02-13] MEDS ORDERED: INSULN ASP PRT/INSULIN ASPART 100 UNIT/ML 10 ML VIAL SQ PRN (16:11)
[2021-02-13] MEDS ORDERED: PANTOPRAZOLE 40 MG TABLET PO PRN (16:11)
[2021-02-13] MEDS ORDERED: ALPRAZolam 0.25 MG TAB PO PRN (16:11)
[2021-02-13 16:35] LABS: Glucose,Whole Blood 191 mg/dL (75-99)
[2021-02-13] MEDS: NITROGLYCERIN OINT 1 INCH/GM PACKET TOPICAL SCH (18:18)
[2021-02-13] MEDS: HYDROcodone/APAP 5-325MG 1 EACH TAB PO PRN (18:22)
[2021-02-13 19:19] LABS: Glucose,Whole Blood 270 mg/dL (75-99)
[2021-02-13] MEDS ORDERED: ATORVASTATIN 40 MG TAB PO SCH (21:00)
[2021-02-13] MEDS ORDERED: ACETAMINOPHEN TAB 325 MG TAB PO PRN (21:11)
[2021-02-13] MEDS: INSULIN ASPART (NovoLOG) 100 UNIT/ML VIAL SQ SCH (21:30)
[2021-02-13] MEDS: KETOROLAC 0.5% OPHTH DROPS 5 ML BTL BOTH EYES SCH (21:30)
[2021-02-13] MEDS: prednisoLONE ACETATE 1% OPHTH DROPS 5 ML BTL BOTH EYES SCH (21:30)
--- NOTE | 2021-02-13 21:40 | P.HPIM ---
History of Present Illness H&P Date: 02/13/21 Chief Complaint: Chest pain Mr. Marquez is a 75-year-old male with a past medical history of coronary artery disease, hypertension, hyperlipidemia, diabetes mellitus, osteoarthritis, CLL in remission, who follows with Dr. Schneider, coming in with a chief complaint of chest pain. Patient states that he had chest pain substernal in nature. He states that he was having an argument with his when he started to notice that he had the substernal pain associated with some difficulty in breathing. Patient denied having any nausea vomiting or diaphoresis with it. Patient denies having any recent travel. No fever chills or rigors. No cough or difficulty breathing. Patient was recently admitted 2 weeks back for the same complaint and underwent cardiac catheterization which showed intermediate disease involving the mid RCA and mild disease involving the left coronary system, he was advised to continue with medical management. In the ER at the time of admission patient's blood pressure was 195/88, temperature 97.5, heart rate between 50s to 60s, saturating at 95% on room air. On reviewing the labs he had a white count of 31.5, hemoglobin 14.1, platelets 126. Sodium 136, potassium 4.4, chloride 101, bicarb 28, BUN 13, creatinine 0.82. Troponin less than 0.012. He had an EKG done showing sinus bradycardia with left ventricular hypertrophy and the chest x-ray showing no acute pulmonary process. So the patient was admitted for further management. Review of Systems REVIEW OF SYSTEMS: CONSTITUTIONAL: No weakness and fatigue HEENT: No recent visual problems or hearing problems. Denied any sore throat. CARDIOVASCULAR: as per HPI PULMONARY: no hemoptysis. GASTROINTESTINAL: No diarrhea, no nausea, no vomiting, no abdominal pain. NEUROLOGICAL: No weakness of the extremities or slurring of speech HEMATOLOGICAL: Denies any bleeding or petechiae. GENITOURINARY: Denies any burning micturition, frequency, or urgency. MUSCULOSKELETAL/RHEUMATOLOGICAL: Denies any joint pain, swelling, or any muscle pain. ENDOCRINE: Denies any polyuria or polydipsia. The rest of the 14-point review of systems is negative. Past Medical History Past Medical History: Coronary Artery Disease (CAD), Cancer, Diabetes Mellitus, GERD/Reflux, Hypertension, Osteoarthritis (OA) Additional Past Medical History / Comment(s): NIDDM type II, 1999 LEUKEMIA (CLL- remission), sinus problems, seasonal allergies, tinnitis bilaterally, OA hands, R wrist carpal tunnel, past fx with L elbow, R rotator cuff tendon problems, L rotator cuff tear, left knee pain History of Any Multi-Drug Resistant Organisms: None Reported Past Surgical History: Heart Catheterization, Orthopedic Surgery Additional Past Surgical History / Comment(s): LEFT HAND thumb tendon repair. Past Anesthesia/Blood Transfusion Reactions: No Reported Reaction Smoking Status: Never smoker - Past Family History Father Family Medical History: CVA/TIA Additional Family Medical History / Comment(s): Father at the age of 85yrs. Mother Family Medical History: Diabetes Mellitus Additional Family Medical History / Comment(s): Mother at the age of 90yrs. Medications and Allergies Home Medications Medication Instructions Recorded Confirmed Type Cetirizine HCl [Zyrtec] 10 mg PO DAILY 05/25/17 02/13/21 History Montelukast Sodium [Singulair] 10 mg PO DAILY 05/25/17 02/13/21 History lisinopriL [Zestril] 40 mg PO DAILY 05/25/17 02/13/21 History Insulin NPH Hum/Reg Insulin Hm 17 units SQ BID PRN 03/05/20 02/13/21 History [Relion Novolin 70-30 Flexpen] Fluticasone Nasal [place] [Flonase 1 spr EA NOSTRIL DAILY PRN 01/24/21 02/13/21 History Nasal [place]] HYDROcodone/APAP 5-325MG [[place] 1 tab PO Q6HR PRN 01/24/21 02/13/21 History 5-325] Ketorolac 0.5% Ophth Soln [Acular 1 drop BOTH EYES BID 01/24/21 02/13/21 History 0.5%] Omeprazole 20 mg PO BID PRN 01/24/21 02/13/21 History Prednisolone Acetate/Pf 1 drop BOTH EYES BID 01/24/21 02/13/21 History [Prednisolone Acet 1% Eye Drop] Aspirin 81 mg PO DAILY 30 Days #30 chew 01/26/21 02/13/21 Rx Atorvastatin [Lipitor] 40 mg PO HS 30 Days #30 tab 01/26/21 02/13/21 Rx ALPRAZolam [Xanax] 0.25 mg PO DAILY PRN 02/13/21 02/13/21 History Metoprolol Succinate (ER) [Toprol 25 mg PO DAILY 02/13/21 02/13/21 History Xl] Allergies Allergy/AdvReac Type Severity Reaction Status Date / Time amoxicillin [From Augmentin] Allergy Rash/Hives Verified 02/13/21 12:56 clavulanic acid Allergy Rash/Hives Verified 02/13/21 12:56 [From Augmentin] Physical Exam Vitals: Vital Signs Temp Pulse Pulse Resp BP BP Pulse Ox 02/13/21 15:41 61 136/72 97 02/13/21 15:29 60 129/67 97 02/13/21 15:25 57 L 137/65 98 02/13/21 14:11 97.8 F 52 L 18 166/79 98 02/13/21 14:00 52 L 02/13/21 13:49 97.8 F 02/13/21 13:42 58 L 16 165/66 97 02/13/21 11:46 55 L 20 163/74 95 02/13/21 11:37 97.5 F L 59 L 20 195/88 95 Intake and Output 02/13/21 02/13/21 02/13/21 06:59 14:59 22:59 Output Total 425 Balance -425 Output: Urine 425 Other: Weight 95.254 kg 95.254 kg PHYSICAL EXAMINATION: GENERAL: Elderly male lying in bed appears to be in no acute distress. HEENT: Pupils are round and equally reacting to light. EOMI. No scleral icterus. No conjunctival pallor. Normocephalic, atraumatic. No pharyngeal erythema. No thyromegaly. CARDIOVASCULAR: S1 and S2 present. PULMONARY: Bilateral breath sounds are positive. Few basal crackles. ABDOMEN: Soft, nontender, nondistended, normoactive bowel sounds. No palpable organomegaly. MUSCULOSKELETAL: No joint swelling or deformity. EXTREMITIES: No cyanosis or clubbing, mild pedal edema. NEUROLOGICAL: patient is alert awake oriented 3 .Gross neurological examination did not reveal any focal deficits. SKIN: No rashes. Results CBC & Chem 7: 02/13/21 11:39 02/13/21 11:39 Labs: Abnormal Lab Results - Last 24 Hours (Table) 02/13/21 02/13/21 02/13/21 Range/Units 11:39 11:39 16:33 WBC 31.5 H (3.8-10.6) k/uL Plt Count 126 L (150-450) k/uL Lymphocytes # 23.9 H (1.0-4.8) k/uL Sodium 136 L (137-145) mmol/L Glucose 240 H (74-99) mg/dL POC Glucose (mg/dL) 191 H (75-99) mg/dL Total Protein 6.2 L (6.3-8.2) g/dL Thrombosis Risk Factor Assmnt - Choose All That Apply Any of the Below Risk Factors Present?: Yes Each Factor Represents 1 point: Obesity (BMI >25) Other Risk Factors: Yes Each Risk Factor Represents 2 Points: Age 61-74 years, Malignancy Thrombosis Risk Factor Assessment Total Risk Factor Score: 5 Thrombosis Risk Factor Assessment Level: High Risk Assessment and Plan Assessment: ASSESSMENT Chest pain possible unstable angina Type 2 diabetes mellitus Coronary artery disease GERD Hypertension Multiple joint osteoarthritis History of CLL in remission Thrombocytopenia PLAN: Patient recently cardiac catheterization done by Dr. De Luna on 01/26/2021 showing intermediate disease involving the mid RCA and mild disease involving the left coronary system. Patient coming in with chest pain, will have serial troponins and EKGs. Patient was started on heparin drip which will be continued. Cardiology has been consulted. Patient's home medications have been resumed. Further recommendations to follow depending on the progress of the patient.
[2021-02-14] MEDS: HYDROcodone/APAP 5-325MG 1 EACH TAB PO PRN (03:42)
[2021-02-14] MEDS: NITROGLYCERIN OINT 1 INCH/GM PACKET TOPICAL SCH ×2 (03:45→07:05)
[2021-02-14 04:04] LABS: Basophils # (A) 0.2 k/uL (0-0.2); Basophils % (A) 1 %; Eosinophils # (A) 0.2 k/uL (0-0.7); Eosinophils % (A) 1 %; HCT 35.3 % (39.0-53.0); HGB 12.8 gm/dL (13.0-17.5); Lymphocytes % (A) 77 %; MCH 32.8 pg (25.0-35.0); MCHC 36.2 g/dL (31.0-37.0); MCV 90.7 fL (80.0-100.0); Mean Platelet Volume 7.5; Monocytes # (A) 0.4 k/uL (0-1.0); Monocytes % (A) 2 %; Neutrophils # (A) 4.5 k/uL (1.3-7.7); Neutrophils % (A) 16 %; Platelet Count 105 k/uL (150-450); RBC 3.89 m/uL (4.30-5.90); RDW 13.8 % (11.5-15.5)
[2021-02-14 04:17] LABS: Lymphocytes # (A) 21.6 k/uL (1.0-4.8)
[2021-02-14 05:24] LABS: African American GFR (CKD) >90 (>60 ml/min/1.73 sqM); Anion Gap 4 mmol/L; Blood Urea Nitrogen 15 mg/dL (9-20); Calcium 8.7 mg/dL (8.4-10.2); Carbon Dioxide 27 mmol/L (22-30); Chloride 105 mmol/L (98-107); Cholesterol 91 mg/dL (<200); Glucose 161 mg/dL (74-99); HDL Cholesterol 32 mg/dL (40-60); LDL Cholesterol,Calculated 36 mg/dL (0-99); Non-African American GFR(CKD) 87 (>60 ml/min/1.73 sqM); Potassium 3.9 mmol/L (3.5-5.1); Sodium 136 mmol/L (137-145); Triglycerides 113 mg/dL (<150)
[2021-02-14 06:25] LABS: Glucose,Whole Blood 194 mg/dL (75-99)
[2021-02-14] MEDS: INSULIN ASPART (NovoLOG) 100 UNIT/ML VIAL SQ SCH ×2 (07:11→12:46)
[2021-02-14] MEDS ORDERED: INSULN ASP PRT/INSULIN ASPART 100 UNIT/ML 10 ML VIAL SQ SCH (07:30)
[2021-02-14] MEDS ORDERED: MONTELUKAST 10 MG TAB PO SCH (09:00)
[2021-02-14] MEDS ORDERED: METOPROLOL SUCCINATE (ER) 25 MG TAB.ER.24H PO SCH (09:00)
[2021-02-14] MEDS ORDERED: ASPIRIN 81 MG PO SCH (09:00)
[2021-02-14] MEDS ORDERED: LORATADINE 10 MG TAB PO SCH (09:00)
[2021-02-14] MEDS ORDERED: ASPIRIN 325 MG TAB PO SCH (09:00)
[2021-02-14] MEDS ORDERED: lisinopriL 20 MG TAB PO SCH (09:00)
[2021-02-14] MEDS: KETOROLAC 0.5% OPHTH DROPS 5 ML BTL BOTH EYES SCH (09:16)
--- NOTE | 2021-02-14 09:38 | P.CRDCN ---
History of Present Illness History of present illness: HISTORY OF PRESENTING ILLNESS This is a pleasant 75-year-old male past medical history significant for CLL since 1998, nonobstructive coronary artery disease with a 50% lesion in the mid RCA, diabetes mellitus, hypertension, arthritis and poor functional capacity. He follows in the office with Dr. Macdonald. We have been asked to see in consultation for chest pain. He states over the weekend he has been experiencing pain in his left arm that were radiating up into the left neck. The pain was sharp and tingly. It was intermittent and not related to activity or exertion. He had the pain when he went to bed Sunday night. When he woke up Sunday the pain was still there in his left arm and neck but had also radiated into his chest. He has some associated shortness of breath, productive cough and nausea. He states the pain is worse when he takes a deep breath. The pain is si milar to how he felt 3 weeks ago but less intense. Three weeks ago when he came in he had an abnormal Lexiscan and underwent cardiac catheterization with Dr. Macdonald revealing a 50% lesion in the mid-RCA. His medical therapy was optimized at that time. Echocardiogram obtained at that time revealed preserved LV systolic function with EF 55-60%. DIAGNOSTICS EKG reveals sinus bradycardia heart rate [address] or T-wave abnormalities. Telemetry tracings indicate sinus mechanism with no acute arrhythmia. Chest xray negative for an acute cardiopulmonary process. Laboratory reviewed, react enzymes negative 3, WBC 28, hemoglobin 12.8, platelets 105, sodium 136, potassium 3.9, creatinine 0.85, LDL 36 and HDL 32. Current cardiac medications include aspirin 81 mg daily, atorvastatin 40 mg d aily, lisinopril 40 mg daily and Toprol 25 mg daily. REVIEW OF SYSTEMS At the time of my exam: CONSTITUTIONAL: Denies fever or chills. CARDIOVASCULAR: Denies chest pain, shortness of breath, orthopnea, PND or palpitations. RESPIRATORY: Denies cough. GASTROINTESTINAL: Denies abdominal pain, diarrhea, constipation, nausea or vomiting. MUSCULOSKELETAL: Denies myalgias. NEUROLOGIC: Denies numbness, tingling, headacbe or weakness. ENDOCRINE: Denies fatigue, weight change, polydipsia or polyurina. GENITOURINARY: Denies burning, hematuria or urgency with micturation. HEMATOLOGIC: Denies history of anemia or bleeding. PHYSICAL EXAMINATION Blood pressure 127/73 heart rate 60 afebrile and maintaining oxygen saturation on nasal cannula. CONSTITUTIONAL: No apparent distress. HEENT: Head is normocephalic. Pupils are equal, round. Sclerae anicteric. Mucous membranes of the mouth are moist. No JVD. No carotid bruit. CHEST EXAMINATION: Lungs are clear to auscultation. No chest wall tenderness is noted on palpation or with deep breathing. HEART EXAMINATION: Regular rate and rhythm. S1, S2 heard. No murmurs, gallops or rub. ABDOMEN: Soft, nontender. Positive bowel sounds. EXTREMITIES: 2+ peripheral pulses, no lower extremity edema and no calf tenderness. NEUROLOGIC EXAMINATION: Patient is awake, alert and oriented x3. ASSESSMENT Chest pain, atypical Nonobstructive coronary artery disease Hypertension Dyslipidemia Arthritis CLL PLAN Pain is atypical for angina. Likely related to some cervical strain. He states he had a neck strain injury a year ago and it does act up from time to time. An acute coronary event has been ruled out. Discontinue IV heparin infusion. No further cardiac work-up, can be discharged home. Thank you kindly for this consultation. Nurse Practitioner note has been reviewed, I agree with a documented findings and plan of care. Patient was seen and examined. Past Medical History Past Medical History: Coronary Artery Disease (CAD), Cancer, Diabetes Mellitus, GERD/Reflux, Hypertension, Osteoarthritis (OA) Additional Past Medical History / Comment(s): NIDDM type II, 1999 LEUKEMIA (CLL- remission), sinus problems, seasonal allergies, tinnitis bilaterally, OA hands, R wrist carpal tunnel, past fx with L elbow, R rotator cuff tendon problems, L rotator cuff tear, left knee pain History of Any Multi-Drug Resistant Organisms: None Reported Past Surgical History: Heart Catheterization, Orthopedic Surgery Additional Past Surgical History / Comment(s): LEFT HAND thumb tendon repair. Past Anesthesia/Blood Transfusion Reactions: No Reported Reaction Smoking Status: Never smoker - Past Family History Father Family Medical History: CVA/TIA Additional Family Medical History / Comment(s): Father at the age of 85yrs. Mother Family Medical History: Diabetes Mellitus Additional Family Medical History / Comment(s): Mother at the age of 90yrs. Medications and Allergies Home Medications Medication Instructions Recorded Confirmed Type Cetirizine HCl [Zyrtec] 10 mg PO DAILY 05/25/17 02/13/21 History Montelukast Sodium [Singulair] 10 mg PO DAILY 05/25/17 02/13/21 History lisinopriL [Zestril] 40 mg PO DAILY 05/25/17 02/13/21 History Insulin NPH Hum/Reg Insulin Hm 17 units SQ BID PRN 03/05/20 02/13/21 History [Relion Novolin 70-30 Flexpen] Fluticasone Nasal [place] [Flonase 1 spr EA NOSTRIL DAILY PRN 01/24/21 02/13/21 History Nasal [place]] HYDROcodone/APAP 5-325MG [[place] 1 tab PO Q6HR PRN 01/24/21 02/13/21 History 5-325] Ketorolac 0.5% Ophth Soln [Acular 1 drop BOTH EYES BID 01/24/21 02/13/21 History 0.5%] Omeprazole 20 mg PO BID PRN 01/24/21 02/13/21 History Prednisolone Acetate/Pf 1 drop BOTH EYES BID 01/24/21 02/13/21 History [Prednisolone Acet 1% Eye Drop] Aspirin 81 mg PO DAILY 30 Days #30 chew 01/26/21 02/13/21 Rx Atorvastatin [Lipitor] 40 mg PO HS 30 Days #30 tab 01/26/21 02/13/21 Rx ALPRAZolam [Xanax] 0.25 mg PO DAILY PRN 02/13/21 02/13/21 History Metoprolol Succinate (ER) [Toprol 25 mg PO DAILY 02/13/21 02/13/21 History Xl] Allergies Allergy/AdvReac Type Severity Reaction Status Date / Time amoxicillin [From Augmentin] Allergy Rash/Hives Verified 02/13/21 12:56 clavulanic acid Allergy Rash/Hives Verified 02/13/21 12:56 [From Augmentin] Physical Exam Vitals: Vital Signs Temp Pulse Pulse Resp BP BP Pulse Ox 02/14/21 04:00 97.7 F 60 18 127/73 97 02/14/21 02:00 51 L 18 02/14/21 00:00 97.8 F 51 L 18 160/71 97 02/13/21 20:00 97.8 F 57 L 18 174/74 97 02/13/21 15:41 61 136/72 97 02/13/21 15:29 60 129/67 97 02/13/21 15:25 57 L 137/65 98 02/13/21 14:11 97.8 F 52 L 18 166/79 98 02/13/21 14:00 52 L 02/13/21 13:49 97.8 F 02/13/21 13:42 58 L 16 165/66 97 02/13/21 11:46 55 L 20 163/74 95 02/13/21 11:37 97.5 F L 59 L 20 195/88 95 Intake and Output 02/13/21 02/14/21 02/14/21 22:59 06:59 14:59 Intake Total 304 Output Total 425 Balance -121 Intake: Intake, IV Titration 74 Amount Heparin Sod,Pork in 0.45% 74 NaCl 25,000 unit In 0.45 % NaCl 1 250ml.bag @ 10. 498 UNITS/KG/HR 10 mls/hr IV .Q24H [facility] Rx#: [id number] Oral 230 Output: Urine 425 Other: Weight 95.254 kg 99.7 kg Results 02/14/21 03:49 02/14/21 03:49 Cardiac Enzymes 02/13/21 02/13/21 02/13/21 Range/Units 11:39 11:39 14:39 AST 25 (17-59) U/L Troponin I <0.012 <0.012 (0.000-0.034) ng/mL 02/13/21 Range/Units 19:42 AST (17-59) U/L Troponin I <0.012 (0.000-0.034) ng/mL Coagulation 02/13/21 02/13/21 02/14/21 Range/Units 11:39 19:42 03:49 PT 10.6 (9.0-12.0) sec APTT 22.4 38.8 H 58.7 H (22.0-30.0) sec Lipids 02/14/21 Range/Units 03:49 Triglycerides 113 (<150) mg/dL Cholesterol 91 (<200) mg/dL HDL Cholesterol 32 L (40-60) mg/dL CBC 02/13/21 02/14/21 Range/Units 11:39 03:49 WBC 31.5 H 28.0 H (3.8-10.6) k/uL RBC 4.35 3.89 L (4.30-5.90) m/uL Hgb 14.1 12.8 L (13.0-17.5) gm/dL Hct 39.6 35.3 L (39.0-53.0) % Plt Count 126 L 105 L (150-450) k/uL Comprehensive Metabolic Panel 02/13/21 02/14/21 Range/Units 11:39 03:49 Sodium 136 L 136 L (137-145) mmol/L Potassium 4.4 3.9 (3.5-5.1) mmol/L Chloride 101 105 (98-107) mmol/L Carbon Dioxide 28 27 (22-30) mmol/L BUN 13 15 (9-20) mg/dL Creatinine 0.82 0.85 (0.66-1.25) mg/dL Glucose 240 H 161 H (74-99) mg/dL Calcium 9.3 8.7 (8.4-10.2) mg/dL AST 25 (17-59) U/L ALT 20 (4-49) U/L Alkaline Phosphatase 80 (38-126) U/L Total Protein 6.2 L (6.3-8.2) g/dL Albumin 4.1 (3.5-5.0) g/dL Current Medications Generic Name Dose Route Start Last Admin Trade Name Freq PRN Reason Stop Dose Admin Acetaminophen 650 mg 02/13/21 21:11 Acetaminophen Tab 325 Mg Tab PO Q6HR PRN Fever and/ or Pain Hydrocodone Bitart/Acetaminophen 1 each 02/13/21 16:11 02/14/21 03:42 Hydrocodone/Apap 5-325mg 1 Each Tab PO 1 each Q6HR PRN Administration Pain Alprazolam 0.25 mg 02/13/21 16:11 Alprazolam 0.25 Mg Tab PO DAILY PRN Anxiety Aspirin 81 mg 02/14/21 09:00 Aspirin 81 Mg PO DAILY RAJWINDER Atorvastatin Calcium 40 mg 02/13/21 21:00 02/13/21 21:30 Atorvastatin 40 Mg Tab PO 40 mg HS RAJWINDER Administration Fluticasone Propionate 1 spray 02/13/21 16:11 Fluticasone 50mcg/[place] Nasal 16gm EA NOSTRIL DAILY PRN Congestion Heparin Sodium/Sodium Chloride 250 mls @ 10 mls/hr 02/13/21 12:45 02/13/21 21:03 25,000 unit/ Sodium Chloride IV 12.6 units/kg/hr .Q24H RAJWINDER 12 mls/hr Titration Protocol 10.498 UNITS/KG/HR Insulin Aspart 17 unit 02/14/21 07:30 Insuln Asp Prt/Insulin Aspart 100 Unit/Ml 10 Ml Vial SQ AC-BID RAJWINDER Insulin Aspart 0 unit 02/13/21 21:00 02/14/21 07:11 Insulin Aspart (Novolog) 100 Unit/Ml Vial SQ 2 unit ACHS RAJWINDER Administration Protocol Ketorolac Tromethamine 1 drops 02/13/21 21:00 02/13/21 21:30 Ketorolac 0.5% Ophth Drops 5 Ml Btl BOTH EYES 1 drops BID RAJWINDER Administration Lisinopril 40 mg 02/14/21 09:00 Lisinopril 20 Mg Tab PO DAILY [facility] Loratadine 10 mg 02/14/21 09:00 Loratadine 10 Mg Tab PO DAILY [facility] Metoprolol Succinate 25 mg 02/14/21 09:00 Metoprolol Succinate (Er) 25 Mg Tab.Er.24h PO DAILY [facility] Montelukast Sodium 10 mg 02/14/21 09:00 Montelukast 10 Mg Tab PO DAILY RAJWINDER Nitroglycerin 0.4 mg 02/13/21 13:15 02/13/21 15:38 Nitroglycerin Sl Tabs 0.4 Mg Tab SUBLINGUAL 0.4 mg Q5M PRN Administration Chest Pain Nitroglycerin 1 inch 02/13/21 18:00 02/14/21 07:05 Nitroglycerin Oint 1 Inch/Gm Packet TOPICAL 1 inch Q6HR RAJWINDER Administration Pantoprazole Sodium 40 mg 02/13/21 16:11 Pantoprazole 40 Mg Tablet PO BID PRN GERDS Prednisolone Acetate 1 drops 02/13/21 21:00 02/13/21 21:30 Prednisolone Acetate 1% Ophth Drops 5 Ml Btl BOTH EYES 1 drops BID RAJWINDER Administration Intake and Output 02/13/21 02/14/21 02/14/21 22:59 06:59 14:59 Intake Total 304 Output Total 425 Balance -121 Intake: Intake, IV Titration 74 Amount Heparin Sod,Pork in 0.45% 74 NaCl 25,000 unit In 0.45 % NaCl 1 250ml.bag @ 10. 498 UNITS/KG/HR 10 mls/hr IV .Q24H [facility] Rx#: [id number] Oral 230 Output: Urine 425 Other: Weight 95.254 kg 99.7 kg 02/14/21 03:49 02/14/21 03:49
[2021-02-14] MEDS: prednisoLONE ACETATE 1% OPHTH DROPS 5 ML BTL BOTH EYES SCH (10:51)
[2021-02-14 12:09] LABS: Glucose,Whole Blood 239 mg/dL (75-99)
[2021-02-14 14:50] VITALS: BP 157/73; PULSE 57; TEMP 97.3
--- NOTE | 2021-02-14 15:38 | P.DS ---
Providers Date of admission: 02/13/21 13:15 Expected date of discharge: 02/14/21 Attending physician: Rachel Godfrey Consults: 02/13/21 13:15 Consult Physician Urgent Consulting Provider: [facility] Consult Reason/Comments: Unstable angina Do you want consulting provider notified?: Yes Primary care physician: Edgard Schneider [place] [facility] Course: Mr. Marquez is a 75-year-old male with a past medical history of coronary artery disease, hypertension, hyperlipidemia, diabetes mellitus, osteoarthritis, CLL in remission, who follows with Dr. Schneider, coming in with a chief complaint of chest pain. Patient states that he had chest pain substernal in nature. He states that he was having an argument with his when he started to notice that he had the substernal pain associated with some difficulty in breathing. Patient denied having any nausea vomiting or diaphoresis with it. Patient denies having any recent travel. No fever chills or rigors. No cough or difficulty breathing. Patient was recently admitted 2 weeks back for the same complaint and underwent cardiac catheterization which showed intermediate disease involving the mid RCA and mild disease involving the left coronary system, he was advised to continue with medical management. In the ER at the time of admission patient's blood pressure was 195/88, temperature 97.5, heart rate between 50s to 60s, saturating at 95% on room air. On reviewing the labs he had a white count of 31.5, hemoglobin 14.1, platelets 126. Sodium 136, potassium 4.4, chloride 101, bicarb 28, BUN 13, creatinine 0.82. Troponin less than 0.012. He had an EKG done showing sinus bradycardia with left ventricular hypertrophy and the chest x-ray showing no acute pulmonary process. So the patient was admitted for further management. Hospital course - patient was started on a heparin drip and cardiology was consulted. Patient had serial troponins and EKGs that are within normal limits. Patient's chest discomfort has resolved. He was cleared by cardiology for discharge. So patient is being discharged home in a stable condition and advised to follow-up with his primary care physician in 1-2 days. Also advised follow-up with cardiology in 1-2 weeks. Vital Signs 02/14/21 02/14/21 02/14/21 08:05 11:30 13:15 Temperature 97.8 F 97.3 F L Pulse Rate [ 96 57 L Pulse Oximetery ] Respiratory 18 18 Rate Blood Pressure 165/73 157/73 [Right Arm] O2 Sat by Pulse 96 97 97 Oximetry PHYSICAL EXAMINATION: GENERAL: Elderly male lying in bed appears to be in no acute distress. HEENT: Pupils are round and equally reacting to light. EOMI. No scleral icterus. No conjunctival pallor. Normocephalic, atraumatic. No pharyngeal erythema. No thyromegaly. CARDIOVASCULAR: S1 and S2 present. PULMONARY: Bilateral breath sounds are positive. Few basal crackles. ABDOMEN: Soft, nontender, nondistended, normoactive bowel sounds. No palpable organomegaly. MUSCULOSKELETAL: No joint swelling or deformity. EXTREMITIES: No cyanosis or clubbing, mild pedal edema. NEUROLOGICAL: patient is alert awake oriented 3 .Gross neurological examination did not reveal any focal deficits. SKIN: No rashes. DISCHARGE DIAGNOSIS Atypical chest pain Type 2 diabetes mellitus Coronary artery disease GERD Hypertension Multiple joint osteoarthritis History of CLL in remission Thrombocytopenia Follow-up: Patient is advised to follow up with his care physician and 2-3 days and cardiology 2-3 weeks. Plan - Discharge Summary Discharge Rx Participant: No New Discharge Prescriptions: Continue Montelukast Sodium [Singulair] 10 mg PO DAILY lisinopriL [Zestril] 40 mg PO DAILY Cetirizine HCl [Zyrtec] 10 mg PO DAILY Insulin NPH Hum/Reg Insulin Hm [Relion Novolin 70-30 Flexpen] 17 units SQ BID PRN PRN Reason: HIGH BLOOD SUGAR Prednisolone Acetate/Pf [Prednisolone Acet 1% Eye Drop] 1 drop BOTH EYES BID Fluticasone Nasal [place] [Flonase Nasal [place]] 1 spr EA NOSTRIL DAILY PRN PRN Reason: Congestion Aspirin 81 mg PO DAILY 30 Days #30 chew ALPRAZolam [Xanax] 0.25 mg PO DAILY PRN PRN Reason: Anxiety Ketorolac 0.5% Ophth Soln [Acular 0.5%] 1 drop BOTH EYES BID HYDROcodone/APAP 5-325MG [[place] 5-325] 1 tab PO Q6HR PRN PRN Reason: Pain Omeprazole 20 mg PO BID PRN PRN Reason: GERDS Atorvastatin [Lipitor] 40 mg PO HS 30 Days #30 tab Metoprolol Succinate (ER) [Toprol XL] 25 mg PO DAILY Discharge Medication List Cetirizine HCl [Zyrtec] 10 mg PO DAILY 05/25/17 [History] Montelukast Sodium [Singulair] 10 mg PO DAILY 05/25/17 [History] lisinopriL [Zestril] 40 mg PO DAILY 05/25/17 [History] Insulin NPH Hum/Reg Insulin Hm [Relion Novolin 70-30 Flexpen] 17 units SQ BID PRN 03/05/20 [History] Fluticasone Nasal [place] [Flonase Nasal [place]] 1 spr EA NOSTRIL DAILY PRN 01/24/21 [History] HYDROcodone/APAP 5-325MG [[place] 5-325] 1 tab PO Q6HR PRN 01/24/21 [History] Ketorolac 0.5% Ophth Soln [Acular 0.5%] 1 drop BOTH EYES BID 01/24/21 [History] Omeprazole 20 mg PO BID PRN 01/24/21 [History] Prednisolone Acetate/Pf [Prednisolone Acet 1% Eye Drop] 1 drop BOTH EYES BID 01/24/21 [History] Aspirin 81 mg PO DAILY 30 Days #30 chew 01/26/21 [Rx] Atorvastatin [Lipitor] 40 mg PO HS 30 Days #30 tab 01/26/21 [Rx] ALPRAZolam [Xanax] 0.25 mg PO DAILY PRN 02/13/21 [History] Metoprolol Succinate (ER) [Toprol XL] 25 mg PO DAILY 02/13/21 [History] Follow up Appointment(s)/Referral(s): Waldemar Macdonald MD [STAFF PHYSICIAN] - 03/01/21 3:30 pm (SUNDAY) Edgard Schneider DO [Primary Care Provider] - 02/23/21 2:20 pm (SUNDAY- IN [facility] PLEASE CALL OFFICE WHEN YOU ARE HOME THEY HAVE SOME QUESTIONS) Patient Instructions/Handouts: Angina (DC) Discharge Disposition: HOME SELF-CARE
== END 2021-02-14 15:56 | disposition home or self-care (01) ==
LOC: EC 11:17 → 3SCARD 13:15
PROVIDERS: ADMIT Internal Medicine; ATTEND Internal Medicine
DX: R07.89 Other chest pain (principal); I11.9 Hypertensive heart disease without heart failure; E11.9 Type 2 diabetes mellitus without complications; C91.11 Chronic lymphocytic leukemia of B-cell type in remission; I25.10 Atherosclerotic heart disease of native coronary artery without angina pectoris; E78.5 Hyperlipidemia, unspecified; M19.042 Primary osteoarthritis, left hand; M19.041 Primary osteoarthritis, right hand; R00.1 Bradycardia, unspecified; D69.6 Thrombocytopenia, unspecified; K21.9 Gastro-esophageal reflux disease without esophagitis; J30.2 Other seasonal allergic rhinitis; H93.13 Tinnitus, bilateral; E66.9 Obesity, unspecified; Z68.29 Body mass index [BMI] 29.0-29.9, adult; G56.01 Carpal tunnel syndrome, right upper limb; M75.102 Unspecified rotator cuff tear or rupture of left shoulder, not specified as traumatic; Z20.822 Contact with and (suspected) exposure to COVID-19; Z79.82 Long term (current) use of aspirin; Z79.4 Long term (current) use of insulin; Z79.891 Long term (current) use of opiate analgesic; Z79.899 Other long term (current) drug therapy; Z88.0 Allergy status to penicillin; Z88.8 Allergy status to other drugs, medicaments and biological substances; Z87.81 Personal history of (healed) traumatic fracture; Z98.890 Other specified postprocedural states; Z83.3 Family history of diabetes mellitus; Z82.3 Family history of stroke
CPT/HCPCS: 96366 ×2; 93005 ×3; 96361; 96365; 99291; 36415; 80061; 80053; 80048; 83735; 84484; 85025 ×2; 85610; 85730 ×2; 87635; 71046; G0378 ×2; J1644 ×2

== ENCOUNTER 2021-03-08 10:18 | Observation (INO) | payer MEDICARE ==
[2021-03-08] MEDS ORDERED: NITROGLYCERIN OINT 1 INCH/GM PACKET TOPICAL STA (10:20)
[2021-03-08] MEDS ORDERED: HEPARIN SODIUM 1,000 UN/ML (10ML VL) IV ONE (10:20)
--- NOTE | 2021-03-08 10:24 | ED ---
Chest Pain HPI - General Stated Complaint: chest pain Time Seen by Provider: 03/08/21 10:18 Source: patient, EMS, RN notes reviewed Mode of arrival: EMS - History of Present Illness Initial Comments: This is a 75-year-old male with a recent admission for chest pain in the finding of a 50% stenosis of one of his arteries he's not sure which one who presents today with complaints of sudden onset of sharp midsternal left-sided chest pain 10/10 severity. He did call EMS. After aspirin and nitroglycerin the pain is down to about a 5/10. No shortness breath no nausea vomiting MD Complaint: chest pain - Related Data Home Medications Medication Instructions Recorded Confirmed Cetirizine HCl [Zyrtec] 10 mg PO DAILY 05/25/17 03/08/21 Montelukast Sodium [Singulair] 10 mg PO DAILY 05/25/17 03/08/21 lisinopriL [Zestril] 40 mg PO DAILY 05/25/17 03/08/21 Insulin NPH Hum/Reg Insulin Hm 17 units SQ DAILY 03/05/20 03/08/21 [Relion Novolin 70-30 Flexpen] Fluticasone Nasal [place] [Flonase 1 spr EA NOSTRIL DAILY PRN 01/24/21 03/08/21 Nasal [place]] HYDROcodone/APAP 5-325MG [[place] 1 tab PO Q6HR PRN 01/24/21 03/08/21 5-325] Ketorolac 0.5% Ophth Soln [Acular 1 drop BOTH EYES BID 01/24/21 03/08/21 0.5%] Omeprazole 20 mg PO BID PRN 01/24/21 03/08/21 Prednisolone Acetate/Pf 1 drop BOTH EYES BID 01/24/21 03/08/21 [Prednisolone Acet 1% Eye Drop] ALPRAZolam [Xanax] 0.25 mg PO DAILY PRN 02/13/21 03/08/21 Metoprolol Succinate (ER) [Toprol 25 mg PO DAILY 02/13/21 03/08/21 XL] Atorvastatin [Lipitor] 80 mg PO HS 03/08/21 03/08/21 Nitroglycerin Sl Tabs [Nitrostat] 0.4 mg SUBLINGUAL Q5M PRN 06/01/21 06/01/21 Previous Rx's Medication Instructions Recorded Aspirin 81 mg PO DAILY 30 Days #30 chew 01/26/21 Allergies Allergy/AdvReac Type Severity Reaction Status Date / Time amoxicillin [From Augmentin] Allergy Rash/Hives Verified 03/08/21 12:12 clavulanic acid Allergy Rash/Hives Verified 03/08/21 12:12 [From Augmentin] Review of Systems ROS Statement: Those systems with pertinent positive or pertinent negative responses have been documented in the HPI. ROS Other: All systems not noted in ROS Statement are negative. EKG Findings - EKG Results: EKG: interpreted by DEB (Says bradycardia rate of 49. Interval 182 QRS duration 92 QT since QTC 450/406 moderate voltage criteria for LVH) Past Medical History Past Medical History: Coronary Artery Disease (CAD), Cancer, Diabetes Mellitus, GERD/Reflux, Hypertension, Osteoarthritis (OA) Additional Past Medical History / Comment(s): NIDDM type II, 1999 LEUKEMIA (CLL- remission), sinus problems, seasonal allergies, tinnitis bilaterally, OA hands, R wrist carpal tunnel, past fx with L elbow, R rotator cuff tendon problems, L rotator cuff tear, left knee pain History of Any Multi-Drug Resistant Organisms: None Reported Past Surgical History: Heart Catheterization, Orthopedic Surgery Additional Past Surgical History / Comment(s): LEFT HAND thumb tendon repair. Past Anesthesia/Blood Transfusion Reactions: No Reported Reaction Smoking Status: Never smoker - Past Family History Father Family Medical History: CVA/TIA Additional Family Medical History / Comment(s): Father at the age of 85yrs. Mother Family Medical History: Diabetes Mellitus Additional Family Medical History / Comment(s): Mother at the age of 90yrs. General Exam - General Exam Comments Initial Comments: This is a well-developed well-nourished awake alert oriented 3 male General appearance: alert, in no apparent distress Head exam: Present: atraumatic, normocephalic, normal inspection Eye exam: Present: normal appearance, PERRL, EOMI. Absent: scleral icterus, conjunctival injection, periorbital swelling ENT exam: Present: normal exam, mucous membranes moist Neck exam: Present: normal inspection, full ROM, other (No stridor JVD or bruits). Absent: tenderness, meningismus, lymphadenopathy Respiratory exam: Present: normal lung sounds bilaterally. Absent: respiratory distress, wheezes, rales, rhonchi, stridor, chest wall tenderness Cardiovascular Exam: Present: regular rate, normal rhythm, normal heart sounds. Absent: systolic murmur, diastolic murmur, rubs, gallop, clicks GI/Abdominal exam: Present: soft, normal bowel sounds. Absent: distended, tenderness, guarding, rebound, rigid Extremities exam: Present: normal inspection, full ROM, normal capillary refill. Absent: tenderness, pedal edema, joint swelling, calf tenderness Back exam: Present: normal inspection Neurological exam: Present: alert, oriented X3, CN II-XII intact Psychiatric exam: Present: normal affect, normal mood Skin exam: Present: warm, dry, intact, normal color. Absent: rash Course Vital Signs 03/08/21 03/08/21 03/08/21 10:35 11:28 12:19 Temperature 97.8 F Pulse Rate 52 L 48 L 46 L Respiratory 18 15 18 Rate Blood Pressure 156/78 144/67 141/65 O2 Sat by Pulse 95 99 99 Oximetry - Reevaluation(s) Reevaluation #1: 03/08/21 12:31 Reevaluation the patient is feeling improved at this time. Chest Pain MDM - MDM Imaging reviewed no acute findings patient has elevated white count which is normal for him. Patient does have no elevation of Alex and he will be admitted however because of the chest pain which is consistent with unstable angina. Dr. rosen Critical Care Time Critical Care Time: Yes Total Critical Care Time: 31 Critical Care Time: 31 minutes of critical care time which includes initial presentation with history physical labs x-rays multiple reevaluation the patient discussed with patient regarding findings discussed with the admitting physician admission or ders and documentation of the above Disposition Clinical Impression: Chest pain, Unstable angina pectoris Disposition: ADMITTED IP TO THIS HOSP Condition: Fair Referrals: Edgard Schneider DO [Primary Care Provider] - 1-2 days
[2021-03-08] MEDS ORDERED: HEPARIN SOD,PORK IN 0.45% NACL 25,000 UNIT in 0.45% NACL 1 250ML.BAG IV SCH (10:30)
[2021-03-08 11:10] LABS: HCT 36.6 % (39.0-53.0); HGB 12.9 gm/dL (13.0-17.5); MCH 32.3 pg (25.0-35.0); MCHC 35.3 g/dL (31.0-37.0); MCV 91.5 fL (80.0-100.0); Mean Platelet Volume 7.2; Platelet Count 109 k/uL (150-450); RBC 3.99 m/uL (4.30-5.90); RDW 14.2 % (11.5-15.5); WBC 26.8 k/uL (3.8-10.6)
[2021-03-08 11:22] LABS: Albumin 3.9 g/dL (3.5-5.0); Calcium 8.9 mg/dL (8.4-10.2); Magnesium 1.8 mg/dL (1.6-2.3); Potassium 4.3 mmol/L (3.5-5.1); Total Bilirubin 0.7 mg/dL (0.2-1.3); Total Protein 5.8 g/dL (6.3-8.2)
[2021-03-08 11:38] LABS: D-Dimer 0.47 mg/L FEU (<0.60)
[2021-03-08 11:47] LABS: Eosinophils # (M) 0.27 k/uL (0-0.7); Lymphocytes # (M) 21.98 k/uL (1.0-4.8); Monocytes # (M) 0.54 k/uL (0-1.0); Neutrophils # (M) 4.02 k/uL (1.3-7.7); Neutrophils % (M) 15 %; Nucleated Red Blood Cells 0 /100 WBC (0-0); Total Cells Counted 200
--- NOTE | 2021-03-08 11:50 | XR ---
EXAMINATION TYPE: XR chest 2V DATE OF EXAM: 03/08/2021 COMPARISON: Chest x-ray February 13, 2021 HISTORY: Left-sided chest pain and shortness of breath. TECHNIQUE: Frontal and lateral views of the chest are obtained. FINDINGS: There are reticular interstitial changes bilaterally without suspicious focal air space op acity, pleural effusion, or pneumothorax seen. The cardiac silhouette size is stable and upper limit s of normal. The osseous structures are intact. IMPRESSION: No acute process. No significant change from prior.
[2021-03-08 12:05] LABS: Partial Thromboplastin Time 21.4 sec (22.0-30.0)
[2021-03-08] MEDS ORDERED: NITROGLYCERIN SL TABS 0.4 MG TAB SUBLINGUAL PRN (12:33)
[2021-03-08] MEDS ORDERED: ALPRAZolam 0.25 MG TAB PO PRN (12:35)
[2021-03-08] MEDS ORDERED: FLUTICASONE 50MCG/SPRAY NASAL 16GM EA NOSTRIL PRN (12:35)
[2021-03-08] MEDS: SODIUM CHLORIDE 0.9% 1,000 ML IV SCH (14:25)
[2021-03-08] MEDS ORDERED: TEMAZEPAM 15 MG CAP PO PRN (18:53)
[2021-03-08 21:07] LABS: Glucose,Whole Blood 147 mg/dL (75-99)
--- NOTE | 2021-03-08 21:23 | HP ---
HISTORY AND PHYSICAL DATE OF SERVICE: 03/08/2021 CHIEF COMPLAINT: Chest pain. HISTORY OF PRESENT ILLNESS: This 75-year-old gentleman with a past medical history of multiple medical problems, CAD, history of diabetes, GERD, hypertension, DJD, history of chronic lymphoid leukemia being followed by Dr. Schneider in the outpatient setting is complaining of chest pain. The patient felt chest pain in the central part of the chest which is radiating to the left side. The patient previously had 50% stenosis of the arteries and because of the increasing chest pain patient came to [facility] and was admitted for further evaluation and treatment. The sodium was 135. Troponins were found to be negative. The patient was admitted earlier this year for atypical chest pain. There is no history of any fever, rigors, chills at this time. PAST MEDICAL HISTORY: History of CAD, history of cardiac catheterization, history of diabetes, GERD, hypertension, DJD. MEDICATIONS: Home medications are nitroglycerin p.r.n., omeprazole, NPH insulin, Lipitor. Xanax, Zestril, prednisone, Singulair, Toprol-XL, ( ), aspirin. ALLERGIES: AMOXICILLIN, CLARINEX, AND CLAVULANIC ACID. FAMILY HISTORY: History of CVA, TIA. SOCIAL HISTORY: No history of smoking. No history of alcohol intake. REVIEW OF SYSTEMS: ENT No history of diminished hearing or vision. CARDIOVASCULAR As mentioned earlier. RESPIRATORY As mentioned earlier. GI No nausea, vomiting, or diarrhea. No dysuria or hematuria. NERVOUS No numbness or weakness. ALLERGY/IMMUNOLOGY No asthma or hayfever. MUSCULOSKELETAL As mentioned earlier. HEMATOLOGY/ONCOLOGY Negative. ENDOCRINE No history of diabetes or hypothyroidism. CONSTITUTIONAL As mentioned earlier. DERMATOLOGY Negative. RHEUMATOLOGY Negative, PSYCHIATRY As mentioned earlier. PHYSICAL EXAMINATION: Alert and oriented x3. Pulse 47, blood pressure 162/78 respiration 18, temperature 97.7, pulse ox 99% on 2 L. HEENT: Conjunctivae normal. Oral mucosa moist. NECK: No jugular venous distention. No lymph node enlargement. CARDIOVASCULAR: S1, S2, muffled. No S3, no S4, RESPIRATORY: Diminished breath sounds at the bases. Scattered rhonchi and crackles. ABDOMEN: Soft, nontender. No mass palpable. LEGS: No edema, no swelling. NERVOUS SYSTEM: Higher functions mentioned earlier. Moves all four limbs. No focal motor or sensory deficits. LYMPHATICS: No lymph node in neck or axilla. SKIN: No rash. JOINTS: No active deforming arthropathy. LAB STUDIES: WBC 10.2, hemoglobin 12.9, sodium 135. ASSESSMENT: 1. Chest pain, possible unstable angina. 2. Chronic lymphoid leukemia in remission. 3. Increased WBC. 4. Anemia, normocytic. 5. Thrombocytopenia. 6. Hyponatremia. 7. History of previous cardiac catheterization and CAD. 8. Diabetes mellitus type 2. 9. GERD. 10.Hypertension. 11.History of DJD. RECOMMENDATIONS AND DISCUSSION: In this 75-year-old gentleman who presented with multiple complex medical issues, we will monitor the patient closely, continue the current management and symptomatic treatment, rule out myocardial infarction, cardiology consultation. Resume the home medications. ( ) protocol. Prognosis guarded because of multiple complex medical issues. Further recommendations to follow. MMODL / IJN: [id number] /
[2021-03-08] MEDS: ATORVASTATIN 80 MG TAB PO SCH (22:05)
[2021-03-08] MEDS: HYDROcodone/APAP 5-325MG 1 EACH TAB PO PRN (22:05)
[2021-03-08] MEDS: NITROGLYCERIN OINT 1 INCH/GM PACKET TOPICAL SCH (22:06)
[2021-03-08] MEDS: INSULIN ASPART (NovoLOG) 100 UNIT/ML VIAL SQ SCH (22:06)
[2021-03-08] MEDS: prednisoLONE ACETATE 1% OPHTH DROPS 5 ML BTL BOTH EYES SCH (22:22)
[2021-03-08] MEDS: KETOROLAC 0.5% OPHTH DROPS 5 ML BTL BOTH EYES SCH (22:22)
[2021-03-09] MEDS: NITROGLYCERIN OINT 1 INCH/GM PACKET TOPICAL SCH ×2 (00:26→05:23)
[2021-03-09 02:47] LABS: Appearance,Urine Clear (Clear); Bilirubin,Urine Negative (Negative); Blood,Urine Negative (Negative); Color,Urine Yellow; Glucose,Urine (UA) Negative (Negative); Ketones,Urine Negative (Negative); Leukocyte Esterase,Urine Negative (Negative); Nitrite,Urine Negative (Negative); Protein,Urine Negative (Negative); Specific Gravity,Urine 1.014 (1.001-1.035)
[2021-03-09 06:07] LABS: HCT 37.9 % (39.0-53.0); HGB 13.2 gm/dL (13.0-17.5); MCH 32.2 pg (25.0-35.0); MCHC 34.9 g/dL (31.0-37.0); MCV 92.1 fL (80.0-100.0); Mean Platelet Volume 7.7; Platelet Count 104 k/uL (150-450); RBC 4.11 m/uL (4.30-5.90); RDW 14.3 % (11.5-15.5); WBC 23.7 k/uL (3.8-10.6)
[2021-03-09 06:44] LABS: Lymphocytes # (M) 19.43 k/uL (1.0-4.8); Neutrophils # (M) 4.27 k/uL (1.3-7.7); Neutrophils % (M) 18 %; Nucleated Red Blood Cells 0 /100 WBC (0-0); Total Cells Counted 100
[2021-03-09 07:10] LABS: Potassium 4.8 mmol/L (3.5-5.1)
[2021-03-09 07:12] LABS: African American GFR (CKD) 76 (>60 ml/min/1.73 sqM); Anion Gap 6 mmol/L; Blood Urea Nitrogen 15 mg/dL (9-20); Calcium 9.4 mg/dL (8.4-10.2); Carbon Dioxide 27 mmol/L (22-30); Chloride 105 mmol/L (98-107); Glucose 197 mg/dL (74-99); Non-African American GFR(CKD) 66 (>60 ml/min/1.73 sqM); Sodium 138 mmol/L (137-145)
[2021-03-09 07:29] LABS: Glucose,Whole Blood 191 mg/dL (75-99)
[2021-03-09] MEDS ORDERED: PANTOPRAZOLE 40 MG TABLET PO PRN (07:30)
[2021-03-09] MEDS ORDERED: ASPIRIN 325 MG TAB PO SCH (09:00)
[2021-03-09] MEDS: lisinopriL 20 MG TAB PO SCH (09:02)
[2021-03-09] MEDS: MONTELUKAST 10 MG TAB PO SCH (09:02)
[2021-03-09] MEDS: METOPROLOL SUCCINATE (ER) 25 MG TAB.ER.24H PO SCH (09:02)
[2021-03-09] MEDS: LORATADINE 10 MG TAB PO SCH (09:02)
[2021-03-09] MEDS: INSULIN ASPART (NovoLOG) 100 UNIT/ML VIAL SQ SCH ×4 (09:02→20:21)
[2021-03-09] MEDS: INSULN ASP PRT/INSULIN ASPART 100 UNIT/ML 10 ML VIAL SQ SCH (09:02)
[2021-03-09] MEDS: KETOROLAC 0.5% OPHTH DROPS 5 ML BTL BOTH EYES SCH ×2 (09:03→20:22)
[2021-03-09] MEDS: prednisoLONE ACETATE 1% OPHTH DROPS 5 ML BTL BOTH EYES SCH ×2 (09:03→20:22)
[2021-03-09] MEDS: HYDROcodone/APAP 5-325MG 1 EACH TAB PO PRN ×2 (09:08→20:21)
--- NOTE | 2021-03-09 11:01 | P.CRDCN ---
History of Present Illness History of present illness: HISTORY OF PRESENTING ILLNESS This is a pleasant 75-year-old male past medical history significant for coronary artery disease with a 50% lesion in the mid RCA, hypertension, diabetes mellitus, CLL and dyslipidemia. He follows in the office with Dr. Macdonald. We have been asked to see in consultation for chest pain. He states on Sunday night around 9:30 he developed a discomfort in his chest in the midsternal region described as a heaviness pounding sensation. This occurred while at rest. It did not radiate or have any associated symptoms. He did take a sublingual nitroglycerin. Which did seem to alleviate his discomfort somewhat however not completely. He called EMS and on arrival they gave another nitroglycerin which did relieve his symptoms entirely. He has had no further symptoms of discomfort since arriving at the hospital. In January 2021 with cardiac catheterization revealing a lesion in the mid RCA 50%, left main, LAD and circumflex artery free of significant disease. Echocardiogram obtained at that time revealed preserved LV systolic function with ejection fraction 55-60% with mild tricuspid regurgitation. DIAGNOSTICS EKG reveals sinus bradycardia heart rate of 49 with nonspecific T-wave abnormalities inferiorly, consistent with previous EKG. Telemetry tracings indicate sinus mechanism with no arrhythmia. Chest xray negative for an acute cardiopulmonary process. Laboratory reviewed, WBC 23.7, hemoglobin 13.2, platelets 104, sodium 138, potassium 4.8, creatinine 1.11, cardiac enzymes negative 3, and T proBNP 308 and magnesium 1.8. Current cardiac medications include aspirin 81 mg daily, Toprol 25 mg daily, lisinopril 40 mg daily, atorvastatin 80 mg daily. REVIEW OF SYSTEMS At the time of my exam: CONSTITUTIONAL: Denies fever or chills. CARDIOVASCULAR: Denies chest pain, shortness of breath, orthopnea, PND or palpitations. RESPIRATORY: Denies cough. GASTROINTESTINAL: Denies abdominal pain, diarrhea, constipation, nausea or vomiting. MUSCULOSKELETAL: Denies myalgias. NEUROLOGIC: Denies numbness, tingling, headacbe or weakness. ENDOCRINE: Denies fatigue, weight change, polydipsia or polyurina. GENITOURINARY: Denies burning, hematuria or urgency with micturation. HEMATOLOGIC: Denies history of anemia or bleeding. PHYSICAL EXAMINATION Blood pressure 160/61 heart rate 55 afebrile and maintaining oxygen saturation on room air. CONSTITUTIONAL: No apparent distress. HEENT: Head is normocephalic. Pupils are equal, round. Sclerae anicteric. Mucous membranes of the mouth are moist. No JVD. No carotid bruit. CHEST EXAMINATION: Lungs are clear to auscultation. No chest wall tenderness is noted on palpation or with deep breathing. HEART EXAMINATION: Regular rate and rhythm. S1, S2 heard. Soft systolic ejection murmur at the base, no gallops or rub. ABDOMEN: Soft, nontender. Positive bowel sounds. EXTREMITIES: 2+ peripheral pulses, no lower extremity edema and no calf tenderness. NEUROLOGIC EXAMINATION: Patient is awake, alert and oriented x3. ASSESSMENT Chest pain, atypical Coronary artery disease, nonobstructive Hypertension Dyslipidemia Diabetes mellitus CLL PLAN An acute coronary event has been ruled out. Discontinue IV heparin. Decrease aspirin to 81 mg daily. Add imdur 30 mg daily. Increase activity and ambulation. Follow up with Dr. Macdonald upon discharge. Thank you kindly for this consultation. Nurse Practitioner note has been reviewed, I agree with a documented findings and plan of care. Patient was seen and examined. Past Medical History Past Medical History: Coronary Artery Disease (CAD), Cancer, Diabetes Mellitus, GERD/Reflux, Hypertension, Osteoarthritis (OA) Additional Past Medical History / Comment(s): NIDDM type II, 1999 LEUKEMIA (CLL- remission), sinus problems, seasonal allergies, tinnitis bilaterally, OA hands, R wrist carpal tunnel, past fx with L elbow, R rotator cuff tendon problems, L rotator cuff tear, left knee pain History of Any Multi-Drug Resistant Organisms: None Reported Past Surgical History: Heart Catheterization, Orthopedic Surgery Additional Past Surgical History / Comment(s): LEFT HAND thumb tendon repair. Past Anesthesia/Blood Transfusion Reactions: No Reported Reaction Past Psychological History: No Psychological Hx Reported Additional Psychological History / Comment(s): Pt resides with his spouse. He is independent. Smoking Status: Never smoker Past Alcohol Use History: None Reported Past Drug Use History: None Reported - Past Family History Father Family Medical History: CVA/TIA Additional Family Medical History / Comment(s): Father at the age of 85yrs. Mother Family Medical History: Diabetes Mellitus Additional Family Medical History / Comment(s): Mother at the age of 90yrs. Medications and Allergies Home Medications Medication Instructions Recorded Confirmed Type Cetirizine HCl [Zyrtec] 10 mg PO DAILY 05/25/17 03/08/21 History Montelukast Sodium [Singulair] 10 mg PO DAILY 05/25/17 03/08/21 History lisinopriL [Zestril] 40 mg PO DAILY 05/25/17 03/08/21 History Insulin NPH Hum/Reg Insulin Hm 17 units SQ DAILY 03/05/20 03/08/21 History [Relion Novolin 70-30 Flexpen] Fluticasone Nasal [place] [Flonase 1 spr EA NOSTRIL DAILY PRN 01/24/21 03/08/21 History Nasal Moore] HYDROcodone/APAP 5-325MG [[place] 1 tab PO Q6HR PRN 01/24/21 03/08/21 History 5-325] Ketorolac 0.5% Ophth Soln [Acular 1 drop BOTH EYES BID 01/24/21 03/08/21 History 0.5%] Omeprazole 20 mg PO BID PRN 01/24/21 03/08/21 History Prednisolone Acetate/Pf 1 drop BOTH EYES BID 01/24/21 03/08/21 History [Prednisolone Acet 1% Eye Drop] Aspirin 81 mg PO DAILY 30 Days #30 chew 01/26/21 03/08/21 Rx ALPRAZolam [Xanax] 0.25 mg PO DAILY PRN 02/13/21 03/08/21 History Metoprolol Succinate (ER) [Toprol 25 mg PO DAILY 02/13/21 03/08/21 History XL] Atorvastatin [Lipitor] 80 mg PO HS 03/08/21 03/08/21 History Nitroglycerin Sl Tabs [Nitrostat] 0.4 mg SUBLINGUAL Q5M PRN 03/08/21 03/08/21 History Allergies Allergy/AdvReac Type Severity Reaction Status Date / Time amoxicillin [From Augmentin] Allergy Rash/Hives Verified 03/08/21 12:12 clavulanic acid Allergy Rash/Hives Verified 03/08/21 12:12 [From Augmentin] Physical Exam Vitals: Vital Signs Temp Pulse Pulse Resp BP BP Pulse Ox 03/09/21 07:00 98.0 F 55 L 19 160/61 94 L 03/09/21 02:00 19 03/09/21 00:47 98.4 F 79 20 162/72 96 03/08/21 19:00 97.8 F 51 L 19 172/78 97 03/08/21 18:45 19 03/08/21 17:50 97.7 F 47 L 18 162/78 99 03/08/21 14:24 97.7 F 47 L 18 154/68 99 03/08/21 12:19 46 L 18 141/65 99 03/08/21 11:28 48 L 15 144/67 99 03/08/21 10:35 97.8 F 52 L 18 156/78 95 Intake and Output 03/08/21 03/09/21 03/09/21 22:59 06:59 14:59 Intake Total 480 186.5 Balance 480 186.5 Intake: Intake, IV Titration 186.5 Amount Heparin Sod,Pork in 0.45% 186.5 NaCl 25,000 unit In 0.45 % NaCl 1 250ml.bag @ 10. 021 UNITS/KG/HR 10 mls/hr IV .Q24H [facility] Rx#: [id number] Oral 480 Other: # Voids 1 3 Weight 99.79 kg Results 03/09/21 05:54 03/09/21 05:54 Cardiac Enzymes 03/08/21 03/08/21 03/08/21 Range/Units 10:54 10:54 13:50 AST 25 (17-59) U/L Troponin I <0.012 <0.012 (0.000-0.034) ng/mL 03/08/21 Range/Units 18:02 AST (17-59) U/L Troponin I <0.012 (0.000-0.034) ng/mL Coagulation 03/08/21 03/08/21 03/09/21 Range/Units 10:54 18:15 05:54 PT 11.0 (9.0-12.0) sec APTT 21.4 L 63.4 H 46.9 H (22.0-30.0) sec CBC 03/08/21 03/09/21 Range/Units 10:54 05:54 WBC 26.8 H 23.7 H (3.8-10.6) k/uL RBC 3.99 L 4.11 L (4.30-5.90) m/uL Hgb 12.9 L 13.2 (13.0-17.5) gm/dL Hct 36.6 L 37.9 L (39.0-53.0) % Plt Count 109 L 104 L (150-450) k/uL Comprehensive Metabolic Panel 03/08/21 03/09/21 Range/Units 10:54 05:54 Sodium 135 L 138 (137-145) mmol/L Potassium 4.3 4.8 (3.5-5.1) mmol/L Chloride 103 105 (98-107) mmol/L Carbon Dioxide 26 27 (22-30) mmol/L BUN 14 15 (9-20) mg/dL Creatinine 1.06 1.11 (0.66-1.25) mg/dL Glucose 180 H 197 H (74-99) mg/dL Calcium 8.9 9.4 (8.4-10.2) mg/dL AST 25 (17-59) U/L ALT 21 (4-49) U/L Alkaline Phosphatase 71 (38-126) U/L Total Protein 5.8 L (6.3-8.2) g/dL Albumin 3.9 (3.5-5.0) g/dL Current Medications Generic Name Dose Route Start Last Admin Trade Name Freq PRN Reason Stop Dose Admin Hydrocodone Bitart/Acetaminophen 1 each 03/08/21 12:35 03/08/21 22:05 Hydrocodone/Apap 5-325mg 1 Each Tab PO 1 each Q6HR PRN Administration Pain Alprazolam 0.25 mg 03/08/21 12:35 Alprazolam 0.25 Mg Tab PO DAILY PRN Anxiety Aspirin 325 mg 03/09/21 09:00 Aspirin 325 Mg Tab PO DAILY RAJWINDER Atorvastatin Calcium 80 mg 03/08/21 21:00 03/08/21 22:05 Atorvastatin 80 Mg Tab PO 80 mg HS RAJWINDER Administration Fluticasone Propionate 1 spray 03/08/21 12:35 Fluticasone 50mcg/Moore Nasal 16gm EA NOSTRIL DAILY PRN Congestion Heparin Sodium/Sodium Chloride 250 mls @ 10 mls/hr 03/08/21 10:30 03/09/21 06:54 25,000 unit/ Sodium Chloride IV 10.021 units/kg/hr .Q24H RAJWINDER 10 mls/hr Titration Protocol 10.021 UNITS/KG/HR Sodium Chloride 1,000 mls @ 20 mls/hr 03/08/21 12:45 03/08/21 14:25 Saline 0.9% IV 20 mls/hr .Q24H RAJWINDER Administration Insulin Aspart 17 unit 03/09/21 09:00 Insuln Asp Prt/Insulin Aspart 100 Unit/Ml 10 Ml Vial SQ DAILY RAJWINDER Insulin Aspart 0 unit 03/08/21 21:00 03/08/21 22:06 Insulin Aspart (Novolog) 100 Unit/Ml Vial SQ 1 unit ACHS RAJWINDER Administration Protocol Ketorolac Tromethamine 1 drops 03/08/21 21:00 03/08/21 22:22 Ketorolac 0.5% Ophth Drops 5 Ml Btl BOTH EYES 1 drops BID [facility] Administration Lisinopril 40 mg 03/09/21 09:00 Lisinopril 20 Mg Tab PO DAILY RAJWINDER Loratadine 10 mg 03/09/21 09:00 Loratadine 10 Mg Tab PO DAILY [facility] Metoprolol Succinate 25 mg 03/09/21 09:00 Metoprolol Succinate (Er) 25 Mg Tab.Er.24h PO DAILY [facility] Montelukast Sodium 10 mg 03/09/21 09:00 Montelukast 10 Mg Tab PO DAILY RAJWINDER Nitroglycerin 0.4 mg 03/08/21 12:33 Nitroglycerin Sl Tabs 0.4 Mg Tab SUBLINGUAL Q5M PRN Chest Pain Nitroglycerin 1 inch 03/08/21 18:00 03/09/21 05:23 Nitroglycerin Oint 1 Inch/Gm Packet TOPICAL Not Given Q6HR [facility] Pantoprazole Sodium 40 mg 03/09/21 07:30 Pantoprazole 40 Mg Tablet PO DAILY PRN GERD Prednisolone Acetate 1 drops 03/08/21 21:00 03/08/21 22:22 Prednisolone Acetate 1% Ophth Drops 5 Ml Btl BOTH EYES 1 drops BID [facility] Administration Temazepam 15 mg 03/08/21 18:53 Temazepam 15 Mg Cap PO HS PRN Insomnia Intake and Output 03/08/21 03/09/21 03/09/21 22:59 06:59 14:59 Intake Total 480 186.5 Balance 480 186.5 Intake: Intake, IV Titration 186.5 Amount Heparin Sod,Pork in 0.45% 186.5 NaCl 25,000 unit In 0.45 % NaCl 1 250ml.bag @ 10. 021 UNITS/KG/HR 10 mls/hr IV .Q24H [facility] Rx#: [id number] Oral 480 Other: # Voids 1 3 Weight 99.79 kg 03/09/21 05:54 03/09/21 05:54
[2021-03-09] MEDS: ISOSORBIDE MONONITRATE ER 30 MG TAB.ER.24H PO SCH (11:42)
[2021-03-09] MEDS: SODIUM CHLORIDE 0.9% 1,000 ML IV SCH (11:43)
[2021-03-09 11:58] LABS: Glucose,Whole Blood 251 mg/dL (75-99)
[2021-03-09 13:40] LABS: Chol/HDL Ratio 4.78; Cholesterol 86 mg/dL (0-200); LDL Cholesterol,Calculated 35.6 mg/dL (0.0-131.0)
[2021-03-09] MEDS ORDERED: HYDROmorphone 0.5 MG/0.5 ML SYRINGE IVP PRN (13:55)
--- NOTE | 2021-03-09 15:51 | PN ---
PROGRESS NOTE DATE OF SERVICE: 03/09/2021 This 75-year-old gentleman who was admitted with chest pain, still has some lower part of anterior pressure type of pain. No fever. No cough. PHYSICAL EXAMINATION: Alert and oriented x3. Pulse 55. Blood pressure 160/61, respiration 19, temp 98 degrees, pulse ox 94% on room air. HEENT: Conjunctivae normal. NECK is no JVD. CARDIOVASCULAR: S1, S2 muffled. RESPIRATION: Breath sounds diminished in the bases. A few scattered rhonchi. ABDOMEN: Soft. NERVOUS SYSTEM: No focal deficits. LABS: WBC ntd, hemoglobin 13.2, sodium 130, potassium 4.8, glucose is 251, is 18. ASSESSMENT: 1. Chest pain, possible unstable angina. 2. Chronic lymphatic leukemia. 3. Increased WBC. 4. Anemia, normocytic. 5. Thrombocytopenia. 6. Hyponatremia. 7. History of previous cardiac catheterization, coronary artery disease. 8. History of previous stress test. 9. Diabetes mellitus type 2. 10.Gastroesophageal reflux disease. 11.Hypertension. 12.History of degenerative joint disease. RECOMMENDATIONS AND DISCUSSION: I recommend to continue current medications. Symptomatic treatment. The patient has continued continued chest pain. Recommend continue with antiplatelet agents and Cardiology has seen the patient and recommended increase activity, ambulation and add Imdur also. Further recommendations to follow. I would recommend repeat labs. The white count is elevated. MMODL / IJN: [id number] / MTDD
[2021-03-09 17:06] LABS: Glucose,Whole Blood 168 mg/dL (75-99)
[2021-03-09 20:17] LABS: Glucose,Whole Blood 178 mg/dL (75-99)
[2021-03-09] MEDS: ATORVASTATIN 80 MG TAB PO SCH (20:21)
[2021-03-10] MEDS: HYDROcodone/APAP 5-325MG 1 EACH TAB PO PRN (02:58)
[2021-03-10 06:29] LABS: African American GFR (CKD) 80 (>60 ml/min/1.73 sqM); Anion Gap 5 mmol/L; Blood Urea Nitrogen 17 mg/dL (9-20); Calcium 9.1 mg/dL (8.4-10.2); Carbon Dioxide 28 mmol/L (22-30); Chloride 103 mmol/L (98-107); Glucose 141 mg/dL (74-99); Non-African American GFR(CKD) 69 (>60 ml/min/1.73 sqM); Potassium 4.6 mmol/L (3.5-5.1); Sodium 136 mmol/L (137-145)
[2021-03-10 06:59] LABS: Glucose,Whole Blood 133 mg/dL (75-99)
[2021-03-10] MEDS: lisinopriL 20 MG TAB PO SCH (07:40)
[2021-03-10] MEDS: ISOSORBIDE MONONITRATE ER 30 MG TAB.ER.24H PO SCH (07:40)
[2021-03-10] MEDS: LORATADINE 10 MG TAB PO SCH (07:41)
[2021-03-10] MEDS: METOPROLOL SUCCINATE (ER) 25 MG TAB.ER.24H PO SCH (07:41)
[2021-03-10] MEDS: MONTELUKAST 10 MG TAB PO SCH (07:41)
[2021-03-10 08:01] VITALS: BP 174/69; PULSE 55; RESP 18; TEMP 97.5
[2021-03-10] MEDS: INSULN ASP PRT/INSULIN ASPART 100 UNIT/ML 10 ML VIAL SQ SCH (08:31)
[2021-03-10] MEDS: INSULIN ASPART (NovoLOG) 100 UNIT/ML VIAL SQ SCH ×2 (08:32→13:00)
[2021-03-10] MEDS: KETOROLAC 0.5% OPHTH DROPS 5 ML BTL BOTH EYES SCH (08:35)
[2021-03-10] MEDS: prednisoLONE ACETATE 1% OPHTH DROPS 5 ML BTL BOTH EYES SCH (08:36)
[2021-03-10] MEDS ORDERED: ASPIRIN 81 MG PO SCH (09:00)
[2021-03-10 10:24] LABS: Basophils # (A) 0.06 X 10*3/uL (0.00-0.10); Basophils % (A) 0.3 %; Eosinophils # (A) 0.13 X 10*3/uL (0.04-0.35); Eosinophils % (A) 0.6 %; HCT 37.3 % (39.6-50.0); HGB 12.1 g/dL (13.0-17.0); Lymphocytes # (A) 18.36 X 10*3/uL (0.90-5.00); Lymphocytes % (A) 80.1 %; MCH 30.9 pg (27.0-32.0); MCHC 32.4 g/dL (32.0-37.0); MCV 95.2 fL (80.0-97.0); Mean Platelet Volume 10.6 fL (9.5-12.2); Monocytes # (A) 1.29 X 10*3/uL (0.20-1.00); Monocytes % (A) 5.6 %; Neutrophils # (A) 3.05 X 10*3/uL (1.80-7.70); Neutrophils % (A) 13.2 %; Platelet Count 103 X 10*3/uL (140-440); RBC 3.92 X 10*6/uL (4.40-5.60); RDW 14.4 % (11.5-14.5); WBC 22.93 X 10*3/uL (4.50-10.00)
[2021-03-10 11:41] LABS: Glucose,Whole Blood 187 mg/dL (75-99)
[2021-03-10] MEDS: SODIUM CHLORIDE 0.9% 1,000 ML IV SCH (13:02)
--- NOTE | 2021-03-11 05:51 | DS ---
DISCHARGE SUMMARY DATE OF SERVICE: 03/10/2021 FINAL DIAGNOSIS: 1. Chest pain, myocardial infarction, rule out coronary artery disease. 2. Chronic unstable angina. 3. Chronic lymphatic leukemia. 4. Increased WBC. 5. Anemia, normocytic. 6. Thrombocytopenia. 7. Hyponatremia. 8. History of previous cardiac catheterization showing coronary artery disease. 9. History of previous stress test. 10.Diabetes mellitus type 2. 11.Gastroesophageal reflux disease. 12.Hypertension. 13.History of degenerative joint disease. DISCHARGE DISPOSITION: The patient will be discharged in stable condition with guarded prognosis. HISTORY OF PRESENT ILLNESS: This is a 75-year-old gentleman with a past medical history of multiple medical problems admitted with chest pain. OK ruled out. Cardiology saw the patient. Conservative line of management was continued. The patient was followed by Dr. Macdonald in the outpatient setting. The patient had a mid RCA lesion 50% in January 2021 cardiac cath and ejection fraction found to 50-60%. PHYSICAL EXAMINATION: On exam, vitals are stable. Cardiovascular S1 and S2. Abdomen soft. Nervous system no focal deficits. DISCHARGE ADVICE: Diet is cardiac. Activity limited until followup. Follow up with Dr. Schneider in 1-2 days. Follow up with Cardiology as recommended. MEDICATIONS: 1. Ketoralac as before. 2. Fluticasone as before. 3. Lipitor 80 mg q.h.s. 4. Nitrostat p.r.n. 5. [place] 5 mg q.6 p.r.n. 6. Omeprazole 20 mg b.i.d. 7. Prednisone 1 drop both eyes. 8. NPH 17 units subcu daily. 9. Singulair 10 mg p.o. daily. 10.Toprol-XL 25 mg. 11.Xanax 0.25 daily. 12.Zestril 40 mg p.o. daily. 13.Zyrtec 10 mg daily. 14.Aspirin 81 mg daily. 15.Imdur 30 mg p.o. daily. Once again the patient will be discharged in stable condition with a guarded prognosis. MMODL / LEVONN: [id number] /
== END 2021-03-10 13:35 | disposition home or self-care (01) ==
LOC: EC 10:18 → 6NMEDSUR 12:33
PROVIDERS: ADMIT Internal Medicine; ATTEND Internal Medicine
DX: I21.9 Acute myocardial infarction, unspecified (principal); I25.110 Atherosclerotic heart disease of native coronary artery with unstable angina pectoris; C91.11 Chronic lymphocytic leukemia of B-cell type in remission; Z20.822 Contact with and (suspected) exposure to COVID-19; D64.9 Anemia, unspecified; D69.6 Thrombocytopenia, unspecified; E87.1 Hypo-osmolality and hyponatremia; I10 Essential (primary) hypertension; K21.9 Gastro-esophageal reflux disease without esophagitis; E11.9 Type 2 diabetes mellitus without complications; E78.5 Hyperlipidemia, unspecified; M19.041 Primary osteoarthritis, right hand; M19.90 Unspecified osteoarthritis, unspecified site; M19.042 Primary osteoarthritis, left hand; M25.562 Pain in left knee; Z79.4 Long term (current) use of insulin; Z79.82 Long term (current) use of aspirin; Z79.899 Other long term (current) drug therapy; Z88.1 Allergy status to other antibiotic agents; Z88.0 Allergy status to penicillin; Z88.9 Allergy status to unspecified drugs, medicaments and biological substances; Z83.3 Family history of diabetes mellitus; Z82.3 Family history of stroke
CPT/HCPCS: 96366 ×3; 96365; 99291; 36415; 93005; 85379; 83880; 80061; 80053; 80048 ×2; 82550; 83690; 83735; 84484; 85025 ×3; 85610; 85730 ×2; 81003; 87635; 71046; G0378 ×3; J1644 ×2

== ENCOUNTER 2021-03-31 08:52 | Day surgery (SDC) | payer MEDICARE ==
[~2021-03-31 08:52] MED LIST changes: -ACETAMINOPHEN TAB 500 MG TAB PO NR; +DEXAMETHASONE SOD PHOSPHATE 4 MG/ML 1 ML VIAL IV ONE; +HYDROmorphone 0.5 MG/0.5 ML SYRINGE IVP PRN; -IMMUNE GLOBULIN (GAMMAGARD) 10 GM in EMPTY BAG 1 BAG IV ONE; -IMMUNE GLOBULIN (GAMMAGARD) 30 GM in EMPTY BAG 1 BAG IV ONE; -IMMUNE GLOBULIN (GAMMAGARD) 5 GM in EMPTY BAG 1 BAG IV ONE; +LACTATED RINGERS 1,000 ML IV SCH; +ONDANSETRON 4 MG/2 ML VIAL IVP ONE; -SODIUM CHLORIDE 0.9% 500 ML 500 ML in EMPTY BAG 1 BAG IV PRN; -diphenhydrAMINE 50 MG/ML 1 ML VIAL IVP NR; -methylPREDNISolone SOD SUCCI 125 MG/2 ML VIAL IV NR
[2021-03-31 09:48] LABS: Glucose,Whole Blood 191 mg/dL (75-99)
[2021-03-31] MEDS ORDERED: MIDAZOLAM 2 MG/2 ML VIAL ONE (10:02)
[2021-03-31] MEDS ORDERED: LIDOCAINE 1% INJ 10MG/ML (20 ML MDV) ONE (10:02)
[2021-03-31] MEDS ORDERED: BUPIVACAINE (PF) 0.25% 30 ML VIAL SQ ONE ×2 (10:02→10:30)
[2021-03-31] MEDS ORDERED: PROPOFOL 10 MG/ML 20 ML VIAL IV ONE (10:02)
[2021-03-31] MEDS ORDERED: fentaNYL (PF) 50 MCG/ML 2 ML AMP ONE (10:02)
[2021-03-31 10:42] VITALS: TEMP 97
[2021-03-31 10:46] LABS: Glucose,Whole Blood 212 mg/dL (75-99)
--- NOTE | 2021-03-31 10:46 | P.OP ---
Date of Procedure: 03/31/21 Preoperative Diagnosis: Internal derangement left knee Postoperative Diagnosis: 1. Tear medial meniscus left knee 2. Grade 2/3 chondromalacia medial femoral condyle left knee 3. Reactive synovitis medial, lateral and suprapatellar compartments left knee Procedure(s) Performed: 1. Arthroscopic partial medial meniscectomy left knee 2. Arthroscopic chondroplasty medial femoral condyle left knee 3. Arthroscopic partial synovectomy medial, lateral and suprapatellar compartments left knee Anesthesia: JOHNA, local Surgeon: Kannan Stevenson Estimated Blood Loss (ml): 7 Pathology: none sent Condition: stable Disposition: PACU Indications for Procedure: 75-year-old patient seen with progressive left knee pain. After having treatment options discussed, patient elected to proceed with arthroscopy. Operative Findings: See description of procedure Description of Procedure: Patient was taken to the operative suite. Patient underwent a general anesthetic by the department of anesthesia. Patient was given preoperative a ntibiotics. The left lower extremity was placed in a well-padded arthroscopic leg oreilly. The left leg was prepped and draped in the normal sterile orthopedic fashion. A lateral parapatellar and suprapatellar incision was made. Trochars were inserted. Arthroscopy was initiated. Suprapatellar pouch revealed diffuse thick reactive synovitis. The patellofemoral joint appeared to articulate congruently. There was grade 2 chondromalacia of the patella with no significant osteochondral tears present. The scope was guided into the medial gutter. No loose bodies or plica were identified. The scope was then guided into the medial compartment. A medial parapatellar incision was made. Trocar inserted followed by probe. The tear involving the posterior horn medial meniscus. There were grade 2/3 chondromalacia changes of the medial femoral condyle with some diffuse osteochondral tears present. There was thick reactive synovitis anteriorly. I performed a partial medial meniscectomy getting down to stable meniscal tissue. I performed a chondroplasty of the medial femoral condyle getting down to stable osteochondral tissue. I performed a partial synovectomy decompressing the thick reactive synovitis. The shaver was removed. The residual meniscus was stable. The residual osteochondral surface was stable. There was good decompression of the synovitis. Scope and probe were then guided into the intercondylar notch. Cruciates were identified, probed and found to be stable. The scope and probe were then guided into lateral compartment. The lateral meniscus reveals some mild superficial fraying. There were grade 1 chondromalacia changes of the lateral compartment with no osteochondral tears. There was some thick reactive synovitis anteriorly. I introduced a motorized shaver. I debrided that superficial fraying of the lateral meniscus. I performed a partial synovectomy decompressing the thick reactive synovitis. The shaver was removed. There was good decompression of the synovitis. The scope was in guided back into the suprapatellar compartment. I introduced a motorized shaver into the suprapatellar compartment. I debrided some piecemeal fragments of meniscus I encountered. I performed a partial synovectomy decompressing the thick reactive synovitis. The shaver was removed. There was good decompression of the synovitis. I took one more look on the entire knee, no residual debris. Instruments were now removed from the joint. The joint was infiltrated with .25% Marcaine. Steri-Strips were applied to the portal sites. Sterile dressings were applied. The patient was placed into a FRANCHESKA hose. No tourniquet was utilized. The patient was awakened, transferred to a bed and taken to recovery stable satisfactory condition.
[2021-03-31 10:47] VITALS: RESP 16
[2021-03-31] MEDS ORDERED: INSULIN ASPART (NovoLOG) 100 UNIT/ML VIAL SQ ONE (11:08)
[2021-03-31 12:47] VITALS: BP 155/77; PULSE 51
== END 2021-03-31 12:45 | disposition home or self-care (01) ==
LOC: OR 08:52
PROVIDERS: ATTEND Orthopaedic Surgery
DX: M23.204 Derangement of unspecified medial meniscus due to old tear or injury, left knee (principal); M22.42 Chondromalacia patellae, left knee; M65.862 Other synovitis and tenosynovitis, left lower leg; M17.12 Unilateral primary osteoarthritis, left knee; E11.9 Type 2 diabetes mellitus without complications; I10 Essential (primary) hypertension; J30.2 Other seasonal allergic rhinitis; H93.19 Tinnitus, unspecified ear; Z85.6 Personal history of leukemia; K21.9 Gastro-esophageal reflux disease without esophagitis; Z79.891 Long term (current) use of opiate analgesic; Z79.52 Long term (current) use of systemic steroids; Z79.82 Long term (current) use of aspirin; Z79.4 Long term (current) use of insulin; Z79.899 Other long term (current) drug therapy; Z88.0 Allergy status to penicillin
CPT/HCPCS: 29881; 29876; J2250; J1100; J0690; J2405; J2001; J3010; J2704

== ENCOUNTER 2021-04-18 09:24 | Observation (INO) | payer MEDICARE ==
[2021-04-18 09:48] LABS: HCT 36.6 % (39.0-53.0); MCH 32.1 pg (25.0-35.0); MCHC 35.4 g/dL (31.0-37.0); MCV 90.7 fL (80.0-100.0); Mean Platelet Volume 7.9; Platelet Count 109 k/uL (150-450); RBC 4.03 m/uL (4.30-5.90); RDW 13.2 % (11.5-15.5); WBC 19.3 k/uL (3.8-10.6)
[2021-04-18 10:00] LABS: INR 1.1 (<1.2); Prothrombin Time 11.2 sec (9.0-12.0)
[2021-04-18] MEDS ORDERED: MORPHINE SULFATE 4 MG/ML SYRINGE IVP STA (10:03)
[2021-04-18 10:05] LABS: ALT 20 U/L (4-49); AST 29 U/L (17-59); African American GFR (CKD) >90 (>60 ml/min/1.73 sqM); Albumin 3.7 g/dL (3.5-5.0); Alkaline Phosphatase 103 U/L (38-126); Anion Gap 6 mmol/L; Blood Urea Nitrogen 11 mg/dL (9-20); Calcium 9.1 mg/dL (8.4-10.2); Carbon Dioxide 26 mmol/L (22-30); Chloride 104 mmol/L (98-107); Glucose 231 mg/dL (74-99); Lipase 62 U/L (23-300); Magnesium 1.7 mg/dL (1.6-2.3); Non-African American GFR(CKD) >90 (>60 ml/min/1.73 sqM); Potassium 4.3 mmol/L (3.5-5.1); Sodium 136 mmol/L (137-145); Total Protein 5.7 g/dL (6.3-8.2)
--- NOTE | 2021-04-18 10:44 | XR ---
EXAMINATION TYPE: XR chest 2V DATE OF EXAM: 04/18/2021 CLINICAL HISTORY: Chest Pain. TECHNIQUE: Frontal and lateral view of the chest. COMPARISON: 03/08/2021 FINDINGS: Low lung volumes accentuate the cardiac silhouette. The cardiomediastinal silhouette is within normal limits for size. Pulmonary vasculature is normal. There is no focal air space opacity. No pleural e ffusion. No pneumothorax seen. Degenerative changes of the shoulders. IMPRESSION: No acute cardiopulmonary process.
--- NOTE | 2021-04-18 10:52 | ED ---
Chest Pain HPI - General Chief Complaint: Chest Pain Stated Complaint: Chest pain Source: patient, EMS Mode of arrival: EMS Limitations: no limitations - History of Present Illness Initial Comments: 76-year-old male with past nuchal history of CLL, hypertension, diabetes presents emergency room with reported chest pain. Patient has been hospitalized multiple times for similar complaints. Patient has had a diagnosis of unstable angina. Reports that he woke this morning from sleep with significant substernal pain rated 10 out of 10. He took 2 of his nitro at home however only had mild improvement in his symptoms. He called EMS who additionally gave him aspirin and nitro. Normally he has injured to take at home however has been out of the medication and is awaiting a refill from his primary care office. He denies any shortness of breath. No ripping or tearing sensation to his back. No lower external swelling. Patient was cathed earlier this year and was found to have a 50% occlusion. He denies fevers, chills or cough. No abdominal pain. No other alleviating, precipitating or modifying factors - Related Data Home Medications Medication Instructions Recorded Confirmed Cetirizine HCl [Zyrtec] 10 mg PO DAILY 05/25/17 04/18/21 Montelukast Sodium [Singulair] 10 mg PO DAILY 05/25/17 04/18/21 Insulin NPH Hum/Reg Insulin Hm 17 units SQ AC-BRKFST 03/05/20 04/18/21 [Relion Novolin 70-30 Flexpen] Fluticasone Nasal [place] [Flonase 1 spr EA NOSTRIL DAILY PRN 01/24/21 04/18/21 Nasal [place]] HYDROcodone/APAP 5-325MG [[place] 1 tab PO Q6HR PRN 01/24/21 04/18/21 5-325] Ketorolac 0.5% Ophth Soln [Acular 1 drop BOTH EYES BID 01/24/21 04/18/21 0.5%] Omeprazole 20 mg PO BID PRN 01/24/21 04/18/21 Prednisolone Acetate/Pf 1 drop BOTH EYES BID 01/24/21 04/18/21 [Prednisolone Acet 1% Eye Drop] ALPRAZolam [Xanax] 0.25 mg PO DAILY PRN 02/13/21 04/18/21 Metoprolol Succinate (ER) [Toprol 25 mg PO HS 02/13/21 04/18/21 XL] Atorvastatin [Lipitor] 80 mg PO HS 03/08/21 04/18/21 Nitroglycerin Sl Tabs [Nitrostat] 0.4 mg SUBLINGUAL Q5M PRN 03/08/21 04/18/21 Insulin NPH Hum/Reg Insulin Hm See Protocol SQ AC-SUPPER PRN 03/29/21 04/18/21 [Relion Novolin 70-30 Flexpen] Isosorbide Mononitrate ER [Imdur] 30 mg PO DAILY PRN 03/29/21 04/18/21 Baclofen [Lioresal] 10 mg PO DAILY 04/18/21 04/18/21 SILVER sulfADIAZINE CREAM 1 applic TOPICAL BID 04/18/21 04/18/21 [Silvadene Cream] lisinopriL 40 mg PO DAILY 04/18/21 04/18/21 Previous Rx's Medication Instructions Recorded Aspirin 81 mg PO DAILY 30 Days #30 chew 01/26/21 Allergies Allergy/AdvReac Type Severity Reaction Status Date / Time amoxicillin [From Augmentin] Allergy Rash/Hives Verified 04/18/21 10:08 clavulanic acid Allergy Rash/Hives Verified 04/18/21 10:08 [From Augmentin] Review of Systems ROS Statement: Those systems with pertinent positive or pertinent negative responses have been documented in the HPI. ROS Other: All systems not noted in ROS Statement are negative. EKG Findings - EKG Comments: EKG Findings:: EKG demonstrates sinus bradycardia with a ventricular rate of 51. NM interval of 150. QRS 94. QTC of 422. No acute ST segment elevations or depressions concerning for ischemic changes Past Medical History Past Medical History: Coronary Artery Disease (CAD), Cancer, Diabetes Mellitus, GERD/Reflux, Hypertension, Osteoarthritis (OA) Additional Past Medical History / Comment(s): NIDDM type II, 1999 LEUKEMIA (CLL-remission), sinus problems, seasonal allergies, tinnitis bilaterally, OA hands, R wrist carpal tunnel, past fx with L elbow, R rotator cuff tendon problems, L rotator cuff tear, left knee pain History of Any Multi-Drug Resistant Organisms: None Reported Past Surgical History: Heart Catheterization, Orthopedic Surgery Additional Past Surgical History / Comment(s): LEFT HAND thumb tendon repair. Past Anesthesia/Blood Transfusion Reactions: No Reported Reaction Past Psychological History: No Psychological Hx Reported Smoking Status: Never smoker Past Alcohol Use History: None Reported Past Drug Use History: None Reported - Past Family History Father Family Medical History: CVA/TIA Additional Family Medical History / Comment(s): Father at the age of 85yrs. Mother Family Medical History: Diabetes Mellitus Additional Family Medical History / Comment(s): Mother at the age of 90yrs. General Exam Limitations: no limitations Course Vital Signs 04/18/21 04/18/21 04/18/21 09:27 10:11 11:00 Temperature 97.2 F L Pulse Rate 48 L 55 L 58 L Respiratory 18 17 20 Rate Blood Pressure 178/72 183/87 O2 Sat by Pulse 97 97 94 L Oximetry 04/18/21 12:30 Temperature Pulse Rate 51 L Respiratory 18 Rate Blood Pressure 169/75 O2 Sat by Pulse 97 Oximetry Chest Pain MDM - MDM Upon arrival patient is placed into room 18. History and physical exam was performed. He is hooked up to continuous pulse ox and cardiac monitoring. IV is established laboratory studies are conducted. Patient did go for a chest x- ray. Laboratory studies are reviewed and a white count of 19.3. Troponin is negative. Chest x-ray demonstrates no acute cardiopulmonary process. Patient was given 4 mg of morphine and 4 mg of Zofran. He is reevaluated and continues to have chest pain. Because of continued pain I did discuss the case with Dr. Morris who accepted admission. Cardiology consult. Patient remained in stable condition awaiting a bed on the floor Disposition Clinical Impression: Unstable angina pectoris Disposition: ADMITTED IP TO THIS HOSP Condition: Stable Is patient prescribed a controlled substance at d/c from ED?: No Decision to Admit Reason: Admit from EC Decision Date: 04/18/21 Decision Time: 11:55
[2021-04-18 10:57] LABS: Eosinophils # (M) 0.19 k/uL (0-0.7); Lymphocytes # (M) 15.83 k/uL (1.0-4.8); Monocytes # (M) 0.77 k/uL (0-1.0); Neutrophils # (M) 2.51 k/uL (1.3-7.7); Neutrophils % (M) 13 %; Nucleated Red Blood Cells 0 /100 WBC (0-0); Total Cells Counted 100
[2021-04-18] MEDS ORDERED: NALOXONE 0.4 MG/ML 1 ML VIAL IV PRN (11:55)
[2021-04-18] MEDS ORDERED: ISOSORBIDE MONONITRATE ER 30 MG TAB.ER.24H PO PRN (11:59)
[2021-04-18] MEDS ORDERED: ALPRAZolam 0.25 MG TAB PO PRN (11:59)
[2021-04-18] MEDS: ASPIRIN 81 MG PO STA ×2 (12:18→13:01)
[2021-04-18] MEDS: MONTELUKAST 10 MG TAB PO SCH (12:57)
[2021-04-18] MEDS: lisinopriL 20 MG TAB PO SCH (12:57)
--- NOTE | 2021-04-18 14:27 | P.CRDCN ---
History of Present Illness History of present illness: HISTORY OF PRESENTING ILLNESS This is a pleasant 76-year-old male past medical history significant for CLL since 1998, nonobstructive coronary artery disease with a 50% lesion in the mid RCA, diabetes mellitus, hypertension, arthritis and poor functional capacity. He follows in the office with Dr. Macdonald. We have been asked to see in consultation for chest pain. Patient states he had an episode of chest discomfort in the midsternal region last night that radiated to the left s houlder. The pain is reproducible on palpation and with movement of his left arm. He denies associated shortness of breath, dizziness or palpitations. EKG reveals sinus bradycardia heart rate of [address] or T wave abnormalities noted. Chest x-ray is negative for an acute cardiopulmonary process. Laboratory data reviewed, the BBC 19.3, hemoglobin 13, platelets 109, sodium 136, potassium 4.3, creatinine 0.66, magnesium 1.7, cardiac enzymes negative 2, NT proBNP 337. He underwent a cardiac catheterization in January of this year revealing a 50% lesion in the mid RCA, maximum medical therapy was recommended at that time. Ejection fraction is 55-60%. Current daily cardiac medications include lisinopril 40 mg daily, Toprol 25 mg daily, atorvastatin 80 mg daily, aspirin 81 mg daily and Imdur 30 mg daily as needed for chest pain. REVIEW OF SYSTEMS At the time of my exam: CONSTITUTIONAL: Denies fever or chills. CARDIOVASCULAR: Denies chest pain, shortness of breath, orthopnea, PND or palpitations. RESPIRATORY: Denies cough. GASTROINTESTINAL: Denies abdominal pain, diarrhea, constipation, nausea or vomiting. MUSCULOSKELETAL: Denies myalgias. NEUROLOGIC: Denies numbness, tingling, headacbe or weakness. ENDOCRINE: Denies fatigue, weight change, polydipsia or polyurina. GENITOURINARY: Denies burning, hematuria or urgency with micturation. HEMATOLOGIC: Denies history of anemia or bleeding. PHYSICAL EXAMINATION Blood pressure 169/75 heart rate 51 afebrile and maintaining oxygen saturation on room air. CONSTITUTIONAL: No apparent distress. HEENT: Head is normocephalic. Pupils are equal, round. Sclerae anicteric. Mucous membranes of the mouth are moist. No JVD. No carotid bruit. CHEST EXAMINATION: Lungs are clear to auscultation. No chest wall tenderness is noted on palpation or with deep breathing. HEART EXAMINATION: Regular rate and rhythm. S1, S2 heard. No murmurs, gallops or rub. ABDOMEN: Soft, nontender. Positive bowel sounds. EXTREMITIES: 2+ peripheral pulses, no lower extremity edema and no calf tenderness. NEUROLOGIC EXAMINATION: Patient is awake, alert and oriented x3. ASSESSMENT Pain, atypical Nonobstructive coronary artery disease Hypertension Dyslipidemia CLL Arthritis PLAN An acute coronary event has been ruled out. Pain is atypical for angina, likely related to musculoskeletal strain or arthritis. He has been to the hospital and office multiple times over the last few months with similar pains. All thought to be musculoskeletal in nature. Possibly consider IFR with Dr. Macdonald, this can be discussed in the office on follow-up. Thank you kindly for this consultation. Nurse Practitioner note has been reviewed, I agree with a documented findings and plan of care. Patient was seen and examined. Past Medical History Past Medical History: Coronary Artery Disease (CAD), Cancer, Diabetes Mellitus, GERD/Reflux, Hypertension, Osteoarthritis (OA) Additional Past Medical History / Comment(s): NIDDM type II, 1999 LEUKEMIA (CLL- remission), sinus problems, seasonal allergies, tinnitis bilaterally, OA hands, R wrist carpal tunnel, past fx with L elbow, R rotator cuff tendon problems, L rotator cuff tear, left knee pain History of Any Multi-Drug Resistant Organisms: None Reported Past Surgical History: Heart Catheterization, Orthopedic Surgery Additional Past Surgical History / Comment(s): LEFT HAND thumb tendon repair. Past Anesthesia/Blood Transfusion Reactions: No Reported Reaction Past Psychological History: No Psychological Hx Reported Smoking Status: Never smoker Past Alcohol Use History: None Reported Past Drug Use History: None Reported - Past Family History Father Family Medical History: CVA/TIA Additional Family Medical History / Comment(s): Father at the age of 85yrs. Mother Family Medical History: Diabetes Mellitus Additional Family Medical History / Comment(s): Mother at the age of 90yrs. Medications and Allergies Home Medications Medication Instructions Recorded Confirmed Type Cetirizine HCl [Zyrtec] 10 mg PO DAILY 05/25/17 04/18/21 History Montelukast Sodium [Singulair] 10 mg PO DAILY 05/25/17 04/18/21 History Insulin NPH Hum/Reg Insulin Hm 17 units SQ AC-BRKFST 03/05/20 04/18/21 History [Relion Novolin 70-30 Flexpen] Fluticasone Nasal [place] [Flonase 1 spr EA NOSTRIL DAILY PRN 01/24/21 04/18/21 History Nasal [place]] HYDROcodone/APAP 5-325MG [[place] 1 tab PO Q6HR PRN 01/24/21 04/18/21 History 5-325] Ketorolac 0.5% Ophth Soln [Acular 1 drop BOTH EYES BID 01/24/21 04/18/21 History 0.5%] Omeprazole 20 mg PO BID PRN 01/24/21 04/18/21 History Prednisolone Acetate/Pf 1 drop BOTH EYES BID 01/24/21 04/18/21 History [Prednisolone Acet 1% Eye Drop] Aspirin 81 mg PO DAILY 30 Days #30 chew 01/26/21 04/18/21 Rx ALPRAZolam [Xanax] 0.25 mg PO DAILY PRN 02/13/21 04/18/21 History Metoprolol Succinate (ER) [Toprol 25 mg PO HS 02/13/21 04/18/21 History XL] Atorvastatin [Lipitor] 80 mg PO HS 03/08/21 04/18/21 History Nitroglycerin Sl Tabs [Nitrostat] 0.4 mg SUBLINGUAL Q5M PRN 03/08/21 04/18/21 History Insulin NPH Hum/Reg Insulin Hm See Protocol SQ AC-SUPPER PRN 03/29/21 04/18/21 History [Relion Novolin 70-30 Flexpen] Isosorbide Mononitrate ER [Imdur] 30 mg PO DAILY PRN 03/29/21 04/18/21 History Baclofen [Lioresal] 10 mg PO DAILY 04/18/21 04/18/21 History SILVER sulfADIAZINE CREAM 1 applic TOPICAL BID 04/18/21 04/18/21 History [Silvadene Cream] lisinopriL 40 mg PO DAILY 04/18/21 04/18/21 History Allergies Allergy/AdvReac Type Severity Reaction Status Date / Time amoxicillin [From Augmentin] Allergy Rash/Hives Verified 04/18/21 10:08 clavulanic acid Allergy Rash/Hives Verified 04/18/21 10:08 [From Augmentin] Physical Exam Vitals: Vital Signs Temp Pulse Resp BP Pulse Ox 04/18/21 12:30 51 L 18 169/75 97 04/18/21 11:00 58 L 20 94 L 04/18/21 10:11 55 L 17 183/87 97 04/18/21 09:27 97.2 F L 48 L 18 178/72 97 Intake and Output 04/17/21 04/18/21 04/18/21 22:59 06:59 14:59 Other: Weight 99.79 kg Results 04/18/21 09:40 04/18/21 09:40 Cardiac Enzymes 04/18/21 04/18/21 04/18/21 Range/Units 09:40 09:40 13:24 AST 29 (17-59) U/L Troponin I <0.012 <0.012 (0.000-0.034) ng/mL Coagulation 04/18/21 Range/Units 09:40 PT 11.2 (9.0-12.0) sec APTT 22.0 (22.0-30.0) sec CBC 04/18/21 Range/Units 09:40 WBC 19.3 H (3.8-10.6) k/uL RBC 4.03 L (4.30-5.90) m/uL Hgb 13.0 (13.0-17.5) gm/dL Hct 36.6 L (39.0-53.0) % Plt Count 109 L (150-450) k/uL Comprehensive Metabolic Panel 04/18/21 Range/Units 09:40 Sodium 136 L (137-145) mmol/L Potassium 4.3 (3.5-5.1) mmol/L Chloride 104 (98-107) mmol/L Carbon Dioxide 26 (22-30) mmol/L BUN 11 (9-20) mg/dL Creatinine 0.66 (0.66-1.25) mg/dL Glucose 231 H (74-99) mg/dL Calcium 9.1 (8.4-10.2) mg/dL AST 29 (17-59) U/L ALT 20 (4-49) U/L Alkaline Phosphatase 103 (38-126) U/L Total Protein 5.7 L (6.3-8.2) g/dL Albumin 3.7 (3.5-5.0) g/dL Current Medications Generic Name Dose Route Start Last Admin Trade Name Tanesha PRN Reason Stop Dose Admin Alprazolam 0.25 mg 04/18/21 11:59 Alprazolam 0.25 Mg Tab PO DAILY PRN Anxiety Isosorbide Mononitrate 30 mg 04/18/21 11:59 Isosorbide Mononitrate Er 30 Mg Tab.Er.24h PO DAILY PRN CHEST PRESSURE Lisinopril 40 mg 04/18/21 13:00 04/18/21 12:57 Lisinopril 20 Mg Tab PO 40 mg DAILY RAJWINDER Administration Metoprolol Succinate 25 mg 04/18/21 21:00 Metoprolol Succinate (Er) 25 Mg Tab.Er.24h PO HS RAJWINDER Montelukast Sodium 10 mg 04/18/21 13:00 04/18/21 12:57 Montelukast 10 Mg Tab PO 10 mg DAILY RAJWINDER Administration Naloxone HCl 0.2 mg 04/18/21 11:55 Naloxone 0.4 Mg/Ml 1 Ml Vial IV Q2M PRN Opioid Reversal Intake and Output 04/17/21 04/18/21 04/18/21 22:59 06:59 14:59 Other: Weight 99.79 kg Patient Weight 04/19/21 06:59 Weight 99.79 kg 04/18/21 09:40 04/18/21 09:40
[2021-04-18] MEDS ORDERED: HYDROcodone/APAP 5-325MG 1 EACH TAB PO PRN (14:37)
[2021-04-18] MEDS ORDERED: PANTOPRAZOLE 40 MG TABLET PO PRN (14:37)
[2021-04-18] MEDS ORDERED: FLUTICASONE 50MCG/SPRAY NASAL 16GM EA NOSTRIL PRN (14:37)
[2021-04-18] MEDS ORDERED: NITROGLYCERIN SL TABS 0.4 MG TAB SUBLINGUAL PRN (14:37)
[2021-04-18] MEDS ORDERED: TEMAZEPAM 15 MG CAP PO PRN (14:38)
[2021-04-18 17:10] LABS: Glucose,Whole Blood 201 mg/dL (75-99)
--- NOTE | 2021-04-18 17:12 | HP ---
HISTORY AND PHYSICAL DATE OF SERVICE: 04/18/2021. CHIEF COMPLAINT: Chest pain. HISTORY OF PRESENT ILLNESS: This 76-year-old gentleman with a past medical history of CAD, diabetes, GERD, hypertension, history of DJD, history of chronic lymphatic leukemia in remission, being followed by Dr. Schneider in the outpatient setting, was recently admitted to [facility] with chest pain. The patient apparently had a mid RCA lesion 50% January 26 cardiac catheterization and the ejection fraction found to be 50-60 percent. The patient followed by Dr. Macdonald in the outpatient setting. The patient was given medications. Apparently the patient ran out of some other medications and the patient is having chest pain which is felt in the anterior part of the chest, mainly in the epigastrium which is a pressure type of pain which is also radiating upwards. The patient came to [facility] and was admitted for evaluation and treatment. The white count was found to be 19.3, but the troponins are negative at this time. Sugars at 231. The cardiology evaluation is in progress. The EKG shows sinus bradycardia with some ST-T changes. There is no history of fever, rigors or chills at this time. No headache, loss of consciousness, seizures at this time. PAST MEDICAL HISTORY: History of CAD, diabetes, GERD, hypertension, DJD, CLL on remission. MEDICATIONS: Home medications are Singulair, Silvadene cream, prednisone, Nitrostat, Toprol- XL, FlexPen, [place], Zyrtec, Lioresal, Lipitor, aspirin, Xanax, Imdur, Flonase. ALLERGIES: AUGMENTIN. FAMILY HISTORY: History of CVA/TIA in the family. SOCIAL HISTORY: No history of smoking. No history of alcohol. REVIEW OF SYSTEMS: ENT: No diminished vision. No diminished hearing. CARDIOVASCULAR as mentioned earlier. RESPIRATORY: As mentioned earlier. GI: No nausea or vomiting. : No dysuria. NERVOUS SYSTEM: No numbness, weakness. ALLERGY/IMMUNOLOGY: No asthma or hayfever. MUSCULOSKELETAL as mentioned earlier. HEMATOLOGY/ONCOLOGY: No history anemia. ENDOCRINE: No history of diabetes or hypothyroidism. CONSTITUTIONAL: As mentioned earlier. DERMATOLOGY: Negative. RHEUMATOLOGY: Negative. PSYCHIATRY: As mentioned earlier. PHYSICAL EXAMINATION: Alert and oriented times three. Pulse 51, blood pressure 169/74, respiration 18, temperature 97.2, pulse ox 97% on room air. HEENT: Conjunctivae normal. NECK: No JVD. CARDIOVASCULAR: S1, S2 muffled. RESPIRATION: Breath sounds diminished in the bases. No rhonchi. No crackles. ABDOMEN: Soft, nontender. No mass palpable. LEGS: No edema. No swelling. NERVOUS SYSTEM: Higher functions as mentioned earlier. Moves all 4 limbs. No focal motor or sensory deficits. LYMPHATICS: No lymph nodes palpable in the neck, axilla or groin. SKIN: No ulcer, rash or bleeding. JOINTS: No active deforming arthropathy. LABS: At this time shows: WBC 19.2, hemoglobin 13, sodium 130, potassium 4.2. ASSESSMENT: 1. Chest pain, possible unstable angina. 2. History of previous coronary artery disease with mid RCA 50% disease. 3. History of diabetes type 2. 4. Gastroesophageal reflux disease. 5. Hypertension. 6. History of degenerative joint disease. 7. Hyponatremia. 8. Chronic lymphatic leukemia in remission. 9. Increased WBC. 10.FULL CODE. RECOMMENDATIONS AND DISCUSSION: This 76-year-old gentleman who presented with multiple complex medical issues, at this time I recommend to continue the current medications, management and symptomatic treatment. Otherwise, resume the home medications. Other than that, I would also recommend Cardiology consultation. Monitor blood sugars closely. Prognosis guarded because of multiple complex medical issues. Further recommendations to follow. Unstable angina protocol. Copy of this dictation being forwarded to Dr. Schneider who is the primary physician. MMODL / LEVONN: [id number] / MTDD
[2021-04-18] MEDS: BACLOFEN 10 MG TAB PO SCH (17:19)
[2021-04-18] MEDS: ASPIRIN 81 MG PO SCH (17:28)
[2021-04-18] MEDS: INSULN ASP PRT/INSULIN ASPART 100 UNIT/ML 10 ML VIAL SQ SCH (17:28)
[2021-04-18 20:24] LABS: Glucose,Whole Blood 237 mg/dL (75-99)
[2021-04-18] MEDS: KETOROLAC 0.5% OPHTH DROPS 5 ML BTL BOTH EYES SCH (20:31)
[2021-04-18] MEDS: prednisoLONE ACETATE 1% OPHTH DROPS 5 ML BTL BOTH EYES SCH (20:31)
[2021-04-18] MEDS ORDERED: ATORVASTATIN 80 MG TAB PO SCH (21:00)
[2021-04-18] MEDS ORDERED: METOPROLOL SUCCINATE (ER) 25 MG TAB.ER.24H PO SCH (21:00)
[2021-04-19 01:53] VITALS: RESP 16; TEMP 97.7
[2021-04-19 07:15] LABS: Glucose,Whole Blood 220 mg/dL (75-99)
[2021-04-19 07:44] VITALS: BP 162/58; PULSE 60
[2021-04-19] MEDS: INSULN ASP PRT/INSULIN ASPART 100 UNIT/ML 10 ML VIAL SQ SCH (08:00)
[2021-04-19] MEDS: KETOROLAC 0.5% OPHTH DROPS 5 ML BTL BOTH EYES SCH (08:01)
[2021-04-19] MEDS: lisinopriL 20 MG TAB PO SCH (08:01)
[2021-04-19] MEDS: BACLOFEN 10 MG TAB PO SCH (08:01)
[2021-04-19] MEDS: MONTELUKAST 10 MG TAB PO SCH (08:01)
[2021-04-19] MEDS: ASPIRIN 81 MG PO SCH (08:01)
[2021-04-19] MEDS: prednisoLONE ACETATE 1% OPHTH DROPS 5 ML BTL BOTH EYES SCH (08:15)
[2021-04-19] MEDS ORDERED: LORATADINE 10 MG TAB PO SCH (09:00)
[2021-04-19 09:12] LABS: HCT 43.2 % (39.6-50.0); HGB 14.4 g/dL (13.0-17.0); MCH 31.2 pg (27.0-32.0); MCHC 33.3 g/dL (32.0-37.0); MCV 93.5 fL (80.0-97.0); Mean Platelet Volume 11.3 fL (9.5-12.2); Platelet Count 105 X 10*3/uL (140-440); RBC 4.62 X 10*6/uL (4.40-5.60); RDW 13.2 % (11.5-14.5); WBC 21.02 X 10*3/uL (4.50-10.00)
[2021-04-19 09:39] LABS: Anion Gap 10.8 mmol/L (4.00-12.00); BUN/Creat Ratio 17.5 Ratio (12.00-20.00); Carbon Dioxide 25.2 mmol/L (21.6-31.8); Potassium 4.2 mmol/L (3.5-5.5)
[2021-04-19 10:03] LABS: Basophils # (A) 0.09 X 10*3/uL (0.00-0.10); Basophils % (A) 0.4 %; Eosinophils # (A) 0.15 X 10*3/uL (0.04-0.35); Eosinophils % (A) 0.7 %; Lymphocytes # (A) 16.92 X 10*3/uL (0.90-5.00); Lymphocytes % (A) 80.5 %; Monocytes # (A) 0.45 X 10*3/uL (0.20-1.00); Monocytes % (A) 2.1 %; Neutrophils # (A) 3.38 X 10*3/uL (1.80-7.70); Neutrophils % (A) 16.2 %
[2021-04-19 10:04] LABS: Crenated RBC 2+
[2021-04-19 11:03] VITALS: BMI 29.8
[2021-04-19 12:04] LABS: Glucose,Whole Blood 216 mg/dL (75-99)
--- NOTE | 2021-04-19 19:09 | DS ---
DISCHARGE SUMMARY DATE OF SERVICE: 04/19/2021 FINAL DIAGNOSES: 1. Chest pain possible unstable angina. Myocardial infarction ruled out. 2. History of previous coronary artery disease and mild RCA disease, 50% disease. 3. History of diabetes type 2. 4. Gastroesophageal reflux disease. 5. Hypertension. 6. History of degenerative joint disease. 7. Hyponatremia. 8. Chronic lymphoid leukemia in remission. 9. Increased WBC. 10.FULL CODE. DISCHARGE DISPOSITION: The patient being discharged in stable condition with guarded prognosis. Cardiology cleared the patient for discharge. HISTORY OF PRESENT ILLNESS: This 76-year-old gentleman with a past medical history of multiple medical problems as mentioned earlier, being followed by Dr. Edgard Schneider in the outpatient setting, having chest pain, myocardial infarction ruled out. The patient treated symptomatically. Cardiology saw the patient and recommended outpatient followup with Dr. Macdonald. On exam, vitals are stable. Cardiovascular: S1, S2. Abdomen soft. Nervous system: No focal deficits. DISCHARGE ADVICE AND MEDICATIONS: 1. Diet is cardiac diet. 2. Activity limited until followup. 3. Follow up with Dr. Schneider 2-3 days. 4. Follow up with Dr. Macdonald as recommended. DISCHARGE MEDICATIONS FOLLOWS: 1. Ketoralac ophthalmic solution. 2. Fluticasone nasal spray as before. 3. Lioresal 10 mg p.o. daily. 4. Lipitor 80 mg q.h.s. 5. Lisinopril 40 mg p.o. daily. 6. [place] 5 mg q.6 p.r.n. 7. Omeprazole 20 mg b.i.d. 8. Prednisone eyedrops. 9. Insulin NPH 70 units subcu a.c. breakfast. 10.NPH as before. 11.Silver sulfadiazine cream as before. 12.Singulair 10 mg p.o. daily. 13.Toprol-XL 25 mg p.o. q.h.s. 14.Xanax 0.25 mg daily p.r.n. 15.Zetia 10 mg p.o. daily. 16.Aspirin 81 mg p.o. daily. 17.Imdur 30 mg p.o. daily. 18.Nitrostat 0.4 sublingually p.r.n. Once again, the patient discharged in stable condition with guarded prognosis. MMODL / IJN: [id number] /
== END 2021-04-19 13:50 | disposition home or self-care (01) ==
LOC: EC 09:24 → 1SOBS 11:55 → 6NMEDSUR 13:04
PROVIDERS: ADMIT Internal Medicine; ATTEND Internal Medicine
DX: R07.89 Other chest pain (principal); I25.10 Atherosclerotic heart disease of native coronary artery without angina pectoris; E11.9 Type 2 diabetes mellitus without complications; K21.9 Gastro-esophageal reflux disease without esophagitis; I10 Essential (primary) hypertension; E87.1 Hypo-osmolality and hyponatremia; C91.11 Chronic lymphocytic leukemia of B-cell type in remission; M19.041 Primary osteoarthritis, right hand; M19.042 Primary osteoarthritis, left hand; R00.1 Bradycardia, unspecified; E78.5 Hyperlipidemia, unspecified; J30.2 Other seasonal allergic rhinitis; M25.562 Pain in left knee; Z88.0 Allergy status to penicillin; Z79.899 Other long term (current) drug therapy; Z79.82 Long term (current) use of aspirin; Z79.4 Long term (current) use of insulin; Z82.3 Family history of stroke; Z83.3 Family history of diabetes mellitus
CPT/HCPCS: 96374; 99285; 36415; 93005; 83880; 80053; 80048; 83690; 83735; 84484; 85025 ×2; 85610; 85730; 71046; G0378 ×3; J2270

== ENCOUNTER → 2021-07-22 | Outpatient (CLI) | payer MEDICARE ==
--- NOTE | 2021-07-22 14:27 | CT ---
EXAMINATION TYPE: CT facial bones wo con DATE OF EXAM: 07/22/2021 COMPARISON: None HISTORY: Chronic sinusitis CT DLP: 506 mGycm Automated exposure control for dose reduction was used. TECHNIQUE: CT scan of the sinuses is performed without contrast, axial images are obtained, coronal r eformatted images are also reviewed. FINDINGS: The paranasal sinuses including the frontal, ethmoid, sphenoid, and maxillary sinuses bila terally are well-aerated without abnormal opacification. The ostiomeatal complex is patent bilateral ly on the coronal images. Small bilateral kristian bullosa. Visualized portion of mastoid air cells show no abnormal opacification. The globes are intact bilate rally. Degenerative change of the spine with low-attenuation the white matter suggestive of a nonspe cific remote ischemic white matter change. IMPRESSION: The sinuses are clear and the ostiomeatal complex is patent bilaterally.
== END | disposition home or self-care (01) ==
LOC: RADCTMAIN 13:22
PROVIDERS: ATTEND Family Medicine
DX: J32.9 Chronic sinusitis, unspecified (principal)
CPT/HCPCS: 70486

== ENCOUNTER 2021-07-27 15:24 | Observation (INO) | payer MEDICARE ==
[2021-07-27] MEDS ORDERED: NITROGLYCERIN SL TABS 0.4 MG TAB SUBLINGUAL STA ×2 (15:34→16:13)
--- NOTE | 2021-07-27 15:42 | ED ---
General Adult HPI - General Chief complaint: Chest Pain Stated complaint: Chest pain Time Seen by Provider: 07/27/21 15:33 Source: patient, EMS, RN notes reviewed, old records reviewed Mode of arrival: EMS Limitations: no limitations - History of Present Illness Initial comments: Patient is a 76-year-old male with past medical history remarkable for CAD, diabetes, GERD, hypertension, diabetes, leukemia is in remission since in the department complaining of chest pain. Patient received a stress test today at Dr. Macdonald's office. He states ascended around noon. He went home at about 1 PM he began having substernal chest pain that felt like a pressure sensation approximately 9 out of 10. Did not radiate. With across both chest. He called EMS to [place] emergency department for evaluation. EMS provided him with a total 324 mg of aspirin, as well as a nitro sublingual tablet which did improve his chest pain from a 9 to approximate 6 where he is at now. He states that he had mild shortness of breath but this is been an ongoing issue secondary to sinus problems. He was not vaccinated for Covid. Denies any lower extremity edema. Denies any headache, lightheadedness. Denies any current abdominal pain but states he did feel slightly nauseous when the chest pain started. This is since resolved. Denies any urinary complaints at this time. Denies any fever, chills, sick contacts. His no other acute complaints at this time. Patient presents over concern for his chest pain in the setting of recent stress test earlier today. Stress test is is medication induced. - Related Data Home Medications Medication Instructions Recorded Confirmed Cetirizine HCl [Zyrtec] 10 mg PO DAILY 05/25/17 07/27/21 Montelukast Sodium [Singulair] 10 mg PO DAILY 05/25/17 07/27/21 Insulin NPH Hum/Reg Insulin Hm 17 units SQ AC-BRKFST 03/05/20 07/27/21 [Relion Novolin 70-30 Flexpen] Fluticasone Nasal [place] [Flonase 1 spr EA NOSTRIL DAILY 01/24/21 07/27/21 Nasal [place]] HYDROcodone/APAP 5-325MG [[place] 1 tab PO Q6HR PRN 01/24/21 07/27/21 5-325] Ketorolac 0.5% Ophth Soln [Acular 1 drop BOTH EYES DAILY 01/24/21 07/27/21 0.5%] Prednisolone Acetate/Pf 1 drop BOTH EYES DAILY 01/24/21 07/27/21 [Prednisolone Acet 1% Eye Drop] ALPRAZolam [Xanax] 0.25 mg PO DAILY PRN 02/13/21 07/27/21 Metoprolol Succinate (ER) [Toprol 25 mg PO DAILY 02/13/21 07/27/21 XL] Atorvastatin [Lipitor] 80 mg PO HS 03/08/21 07/27/21 Insulin NPH Hum/Reg Insulin Hm See Protocol SQ AC-SUPPER PRN 03/29/21 07/27/21 [Relion Novolin 70-30 Flexpen] Baclofen [Lioresal] 10 mg PO DAILY 04/18/21 07/27/21 SILVER sulfADIAZINE CREAM 1 applic TOPICAL BID 04/18/21 07/27/21 [Silvadene Cream] Gabapentin 300 mg PO HS 07/27/21 07/27/21 Omeprazole 40 mg PO DAILY 07/27/21 07/27/21 lisinopriL [Zestril] 20 mg PO DAILY 07/27/21 07/27/21 Previous Rx's Medication Instructions Recorded Isosorbide Mononitrate ER [Imdur] 30 mg PO DAILY #30 tab 04/19/21 Nitroglycerin Sl Tabs [Nitrostat] 0.4 mg SUBLINGUAL Q5M PRN #20 tab 04/19/21 Allergies Allergy/AdvReac Type Severity Reaction Status Date / Time amoxicillin [From Augmentin] Allergy Rash/Hives Verified 07/27/21 17:12 clavulanic acid Allergy Rash/Hives Verified 07/27/21 17:12 [From Augmentin] Review of Systems ROS Statement: Those systems with pertinent positive or pertinent negative responses have been documented in the HPI. Review of Systems: CONST: Denies fever EYES: Denies blurry vision ENT: Denies nasal congestion C/V: Endorses chest pain RESP: Denies shortness of breath GI: Denies abdominal pain : Denies dysuria SKIN: Denies rash. MSK: Denies joint pain. NEURO: Denies headache ROS Other: All systems not noted in ROS Statement are negative. Past Medical History Past Medical History: Coronary Artery Disease (CAD), Cancer, Diabetes Mellitus, GERD/Reflux, Hypertension, Osteoarthritis (OA) Additional Past Medical History / Comment(s): NIDDM type II, 1999 LEUKEMIA (CLL- remission), sinus problems, seasonal allergies, tinnitis bilaterally, OA hands, R wrist carpal tunnel, past fx with L elbow, R rotator cuff tendon problems, L rotator cuff tear, left knee pain History of Any Multi-Drug Resistant Organisms: None Reported Past Surgical History: Heart Catheterization, Orthopedic Surgery Additional Past Surgical History / Comment(s): LEFT HAND thumb tendon repair. Past Anesthesia/Blood Transfusion Reactions: No Reported Reaction Past Psychological History: No Psychological Hx Reported Smoking Status: Never smoker Past Alcohol Use History: None Reported Past Drug Use History: None Reported - Past Family History Father Family Medical History: CVA/TIA Additional Family Medical History / Comment(s): Father at the age of 85yrs. Mother Family Medical History: Diabetes Mellitus Additional Family Medical History / Comment(s): Mother at the age of 90yrs. General Exam - General Exam Comments Initial Comments: General: Appears in no acute distress. HEAD: Normal with no signs of head trauma. EYES: PERRLA, EOMI, conjunctiva normal, no discharge. ENT: Hearing grossly intact, normal oropharynx. RESPIRATORY: Clear breath sounds bilaterally. No wheezes, rales, or rhonchi. C/V: Regular rate and rhythm. S1 and S2 auscultated, no edema, peripheral pulses 2+ and intact throughout ABD: Abd is soft, nontender, nondistended EXT: Normal range of motion, no obvious deformity SKIN: No rashes or lesions observed on exposed skin. NEURO: Alert and oriented 4. No focal sensory strength deficits. Limitations: no limitations Course Vital Signs 07/27/21 07/27/21 07/27/21 15:33 16:15 20:00 Temperature 97.7 F Pulse Rate 57 L 57 L Pulse Rate [ 57 L Designer Architect ] Respiratory 18 16 18 Rate Blood Pressure 195/95 161/64 O2 Sat by Pulse 98 96 Oximetry 07/27/21 20:27 Temperature Pulse Rate 51 L Pulse Rate [ Designer Architect ] Respiratory 16 Rate Blood Pressure 161/60 O2 Sat by Pulse 98 Oximetry Medical Decision Making - Medical Decision Making Based on the patient's presentation and physical exam, I'm concerned for cardiac etiology for his current chest pain, especially with some recent stress test. Therefore we will obtain cardiac laboratory studies. He already received 325 mg of aspirin by EMS. He will be given an additional sublingual nitro glycerin tablet. EKG and chest x-ray will be obtained. He will be connected to continuous cardiac monitoring. Patient was in agreement this plan. EKG shows no acute signs of ischemia and no acute change when compared to prior EKGs. Chest x-ray shows no acute cardiopulmonary process. There is cardiomegaly. Laboratory studies are remarkable for a leukocytosis of 22, however this is chronic as the patient does have a history of leukemia this is actually improved from prior levels. This is a normocytic anemia with a hemoglobin of 12.9. Troponin is negative. Covid is negative. On reevaluation after multiple nitro tablets, patient's chest pain is improved to approximately a 3 or 4. Patient's blood pressure is also improved at this time to 160's systolic. I discussed with him the results of his laboratory studies and imaging. I would like to admit him to the hospital due to his continued chest pain. He was in agreement this plan. He'll be started on a heparin drip. I did contact Dr. Macdonald who was in agreement this plan. We will trend the troponins. Echo was ordered by myself. I spoke with the admitting team CLARIBEL Vasquez who accepted the patient. Patient was admitted in serious condition to observation telemetry under Dr. Morris. Cardiology is consulted. - Lab Data Result diagrams: 07/27/21 15:34 07/27/21 15:34 Lab Results 07/27/21 07/27/21 07/27/21 Range/Units 15:34 15:34 15:34 WBC 22.0 H (3.8-10.6) k/uL RBC 4.20 L (4.30-5.90) m/uL Hgb 12.9 L (13.0-17.5) gm/dL Hct 37.7 L (39.0-53.0) % MCV 89.8 (80.0-100.0) fL MCH 30.9 (25.0-35.0) pg MCHC 34.4 (31.0-37.0) g/dL RDW 14.5 (11.5-15.5) % Plt Count 117 L (150-450) k/uL MPV 8.1 Neutrophils % 21 % Lymphocytes % 72 % Monocytes % 2 % Eosinophils % 1 % Basophils % 1 % Neutrophils # 4.5 (1.3-7.7) k/uL Lymphocytes # 15.8 H (1.0-4.8) k/uL Monocytes # 0.4 (0-1.0) k/uL Eosinophils # 0.3 (0-0.7) k/uL Basophils # 0.1 (0-0.2) k/uL Manual Slide Review Performed PT 11.4 (9.0-12.0) sec INR 1.1 (<1.2) APTT 23.0 (22.0-30.0) sec Sodium 135 L (137-145) mmol/L Potassium 4.1 (3.5-5.1) mmol/L Chloride 103 (98-107) mmol/L Carbon Dioxide 23 (22-30) mmol/L Anion Gap 9 mmol/L BUN 12 (9-20) mg/dL Creatinine 0.76 (0.66-1.25) mg/dL Est GFR (CKD-EPI)AfAm >90 (>60 ml/min/1.73 sqM) Est GFR (CKD-EPI)NonAf >90 (>60 ml/min/1.73 sqM) Glucose 202 H (74-99) mg/dL Calcium 9.0 (8.4-10.2) mg/dL Magnesium 1.7 (1.6-2.3) mg/dL Total Bilirubin 0.7 (0.2-1.3) mg/dL AST 28 (17-59) U/L ALT 21 (4-49) U/L Alkaline Phosphatase 101 (38-126) U/L Troponin I (0.000-0.034) ng/mL NT-Pro-B Natriuret Pep pg/mL Total Protein 6.4 (6.3-8.2) g/dL Albumin 3.8 (3.5-5.0) g/dL Coronavirus (PCR) (Not Detectd) 07/27/21 07/27/21 07/27/21 Range/Units 15:34 15:34 15:35 WBC (3.8-10.6) k/uL RBC (4.30-5.90) m/uL Hgb (13.0-17.5) gm/dL Hct (39.0-53.0) % MCV (80.0-100.0) fL MCH (25.0-35.0) pg MCHC (31.0-37.0) g/dL RDW (11.5-15.5) % Plt Count (150-450) k/uL MPV Neutrophils % % Lymphocytes % % Monocytes % % Eosinophils % % Basophils % % Neutrophils # (1.3-7.7) k/uL Lymphocytes # (1.0-4.8) k/uL Monocytes # (0-1.0) k/uL Eosinophils # (0-0.7) k/uL Basophils # (0-0.2) k/uL Manual Slide Review PT (9.0-12.0) sec INR (<1.2) APTT (22.0-30.0) sec Sodium (137-145) mmol/L Potassium (3.5-5.1) mmol/L Chloride (98-107) mmol/L Carbon Dioxide (22-30) mmol/L Anion Gap mmol/L BUN (9-20) mg/dL Creatinine (0.66-1.25) mg/dL Est GFR (CKD-EPI)AfAm (>60 ml/min/1.73 sqM) Est GFR (CKD-EPI)NonAf (>60 ml/min/1.73 sqM) Glucose (74-99) mg/dL Calcium (8.4-10.2) mg/dL Magnesium (1.6-2.3) mg/dL Total Bilirubin (0.2-1.3) mg/dL AST (17-59) U/L ALT (4-49) U/L Alkaline Phosphatase (38-126) U/L Troponin I <0.012 (0.000-0.034) ng/mL NT-Pro-B Natriuret Pep 239 pg/mL Total Protein (6.3-8.2) g/dL Albumin (3.5-5.0) g/dL Coronavirus (PCR) Not Detected (Not Detectd) - EKG Data -: EKG Interpreted by Me EKG Comments: 12-lead Electrocardiogram Interpretation Note EKG was reviewed and interpreted by myself. 12-lead ECG performed at 1530 is interpreted by me as revealing sinus bradycardia at a rate of 59 beats per minute. [place] is normal. ND interval is 170 ms, QRS duration is 90 ms, QTc is 421 ms.. There were no ST or T wave abnormalities to suggest myocardial ischemia or injury. R wave progression across the precordium was satisfactory. By my interpretation this EKG is non-diagnostic for acute ischemia. When comp ared to prior EKGs, there is no acute change. There is actually improvement in the T-wave inversion seen on prior EKG from 04/2021 in lead III. Disposition Clinical Impression: Chest pain, History of leukemia, Leukocytosis, Normocytic anemia, Sinus bradycardia Disposition: ADMITTED IP TO THIS HOSP Condition: Serious
[2021-07-27 15:55] LABS: Basophils # (A) 0.1 k/uL (0-0.2); Basophils % (A) 1 %; Eosinophils # (A) 0.3 k/uL (0-0.7); Eosinophils % (A) 1 %; HCT 37.7 % (39.0-53.0); HGB 12.9 gm/dL (13.0-17.5); Lymphocytes % (A) 72 %; MCH 30.9 pg (25.0-35.0); MCHC 34.4 g/dL (31.0-37.0); MCV 89.8 fL (80.0-100.0); Mean Platelet Volume 8.1; Monocytes # (A) 0.4 k/uL (0-1.0); Monocytes % (A) 2 %; Neutrophils # (A) 4.5 k/uL (1.3-7.7); Neutrophils % (A) 21 %; Platelet Count 117 k/uL (150-450); RDW 14.5 % (11.5-15.5)
--- NOTE | 2021-07-27 15:58 | XR ---
EXAMINATION TYPE: XR chest 2V DATE OF EXAM: 07/27/2021 COMPARISON: 04/18/2021 TECHNIQUE: PA and lateral views submitted. HISTORY: Shortness of breath FINDINGS: No pneumothorax or pleural effusion. There is subsegmental changes in the left upper lobe.. Heart is enlarged and there is coarsened interstitium with arthropathy of the shoulders. No sizable pleural e ffusion. IMPRESSION: 1. Cardiomegaly correlate for interstitial pneumonitis or early venous congestion. Subsegmental infil trate in the left upper lobe suggested..
[2021-07-27 16:04] LABS: INR 1.1 (<1.2); Lymphocytes # (A) 15.8 k/uL (1.0-4.8); Prothrombin Time 11.4 sec (9.0-12.0)
[2021-07-27 16:17] LABS: ALT 21 U/L (4-49); AST 28 U/L (17-59); African American GFR (CKD) >90 (>60 ml/min/1.73 sqM); Albumin 3.8 g/dL (3.5-5.0); Alkaline Phosphatase 101 U/L (38-126); Anion Gap 9 mmol/L; Blood Urea Nitrogen 12 mg/dL (9-20); Carbon Dioxide 23 mmol/L (22-30); Chloride 103 mmol/L (98-107); Glucose 202 mg/dL (74-99); Magnesium 1.7 mg/dL (1.6-2.3); Non-African American GFR(CKD) >90 (>60 ml/min/1.73 sqM); Potassium 4.1 mmol/L (3.5-5.1); Sodium 135 mmol/L (137-145); Total Bilirubin 0.7 mg/dL (0.2-1.3); Total Protein 6.4 g/dL (6.3-8.2)
[2021-07-27] MEDS ORDERED: HEPARIN SODIUM 1,000 UN/ML (10ML VL) IV PRN (16:47)
[2021-07-27] MEDS ORDERED: HEPARIN SODIUM 1,000 UN/ML (10ML VL) IV ONE (16:47)
[2021-07-27] MEDS ORDERED: ONDANSETRON 4 MG/2 ML VIAL IVP PRN (16:57)
[2021-07-27] MEDS ORDERED: NALOXONE 0.4 MG/ML 1 ML VIAL IV PRN (16:57)
[2021-07-27] MEDS ORDERED: HEPARIN SOD,PORK IN 0.45% NACL 25,000 UNIT in 0.45% NACL 1 250ML.BAG IV SCH (17:00)
[2021-07-27] MEDS: MORPHINE SULFATE 4 MG/ML SYRINGE IV PRN (17:31)
[2021-07-27] MEDS: GABAPENTIN 300 MG CAP PO SCH (23:21)
[2021-07-27] MEDS: HYDROcodone/APAP 5-325MG 1 EACH TAB PO PRN (23:21)
[2021-07-27] MEDS: ATORVASTATIN 80 MG TAB PO SCH (23:21)
[2021-07-28] MEDS: MORPHINE SULFATE 4 MG/ML SYRINGE IV PRN (02:22)
[2021-07-28 06:56] LABS: INR 1.2 (<1.2); Prothrombin Time 12.1 sec (9.0-12.0)
[2021-07-28] MEDS ORDERED: ALPRAZolam 0.25 MG TAB PO PRN (07:56)
[2021-07-28] MEDS ORDERED: FAMOTIDINE 20 MG/2 ML VIAL IV SCH (09:00)
[2021-07-28] MEDS: MONTELUKAST 10 MG TAB PO SCH (09:05)
[2021-07-28] MEDS: lisinopriL 20 MG TAB PO SCH (09:05)
[2021-07-28] MEDS: BACLOFEN 10 MG TAB PO SCH (09:05)
[2021-07-28] MEDS: METOPROLOL SUCCINATE (ER) 25 MG TAB.ER.24H PO SCH (09:05)
[2021-07-28] MEDS: ISOSORBIDE MONONITRATE ER 30 MG TAB.ER.24H PO SCH (09:05)
[2021-07-28] MEDS: FLUTICASONE 50MCG/SPRAY NASAL 16GM EA NOSTRIL SCH (09:06)
[2021-07-28] MEDS: prednisoLONE ACETATE 1% OPHTH DROPS 5 ML BTL BOTH EYES SCH (09:06)
[2021-07-28] MEDS: KETOROLAC 0.5% OPHTH DROPS 5 ML BTL BOTH EYES SCH (09:07)
[2021-07-28] MEDS ORDERED: ASPIRIN 325 MG TAB PO STA (09:23)
[2021-07-28] MEDS: SODIUM CHLORIDE 0.9% 1,000 ML in EMPTY BAG 1 BAG IV SCH ×2 (09:50→20:31)
[2021-07-28] MEDS ORDERED: VERAPAMIL 2.5 MG/ML 2 ML AMP ONE (10:31)
[2021-07-28] MEDS ORDERED: LIDOCAINE 1% INJ 10MG/ML (20 ML MDV) ONE (10:31)
[2021-07-28] MEDS ORDERED: HEPARIN SODIUM 1,000 UN/ML (10ML VL) ONE (10:31)
[2021-07-28] MEDS ORDERED: IV FLUID CONTINUATION 900 ML IV ONE (10:42)
[2021-07-28] MEDS ORDERED: MIDAZOLAM 2 MG/2 ML VIAL IV ONE (11:08)
[2021-07-28] MEDS ORDERED: LIDOCAINE 1% INJ 10MG/ML (20 ML MDV) SQ ONE (11:15)
[2021-07-28] MEDS: VERAPAMIL SYRINGE (5 MG/10 ML) INTRAARTER ONE ×2 (11:17→11:25)
[2021-07-28] MEDS ORDERED: IOPAMIDOL-370 125ML BTL INJ ONE (11:25)
[2021-07-28] MEDS ORDERED: RX INFO: IV CONTRAST WAS GIVEN 1 EACH MISC MISCELLANE PRN (11:37)
[2021-07-28] MEDS ORDERED: SODIUM CHLORIDE 0.9% 1,000 ML IV SCH (11:45)
[2021-07-28 11:48] LABS: Glucose,Whole Blood 174 mg/dL (75-99)
--- NOTE | 2021-07-28 11:48 | P.HPIM ---
History of Present Illness This is a pleasant 76 years old male with past medical history of Coronary Artery Disease, LEUKEMIA (CLL-remission), Diabetes Mellitus, GERD, Hypertension, Osteoarthritis, tinnitis bilaterally, R rotator cuff tendon problems. Presents because of chest pain since yesterday, in the middle of his chest. Nonspecific, nonradiating. No dyspnea. No diarrhea. No dysuria. No dizziness or weakness in one arm or leg. Vitals are stable, slightly bradycardic with heart rate in 50s. show leukocytosis of 22k, which is chronic his baseline WBC is in the 20s and 30sk INR is 1.2. BMP and liver enzymes are unremarkable Troponin 3 are negative the standard 0.012. ProBNP is 239. Coronavirus not detected. EKG showed sinus bradycardia at 59 with QTC [address]-T changes Chest x-ray: Cardiomegaly correlate for interstitial pneumonitis or earlier venous congestion. Subsegmental infiltrate in the left upper lobe suggested Cardiology was consulted from emergency room. Also patient was started on heparin drip Review of Systems CONSTITUTIONAL: No fever, no malaise, no fatigue. HEENT: No recent visual problems or hearing problems. Denied any sore throat. CARDIOVASCULAR: No orthopnea, PND, no palpitations, no syncope. PULMONARY: No shortness of breath, no cough, no hemoptysis. GASTROINTESTINAL: No diarrhea, no nausea, no vomiting, no abdominal pain. Normoactive bowel sounds. NEUROLOGICAL: No headaches, no weakness, no numbness. HEMATOLOGICAL: Denies any bleeding or petechiae. GENITOURINARY: Denies any burning micturition, frequency, or urgency. MUSCULOSKELETAL/RHEUMATOLOGICAL: Denies any joint pain, swelling, or any muscle pain. ENDOCRINE: Denies any polyuria or polydipsia. Past Medical History Past Medical History: Coronary Artery Disease (CAD), Cancer, Diabetes Mellitus, GERD/Reflux, Hypertension, Osteoarthritis (OA) Additional Past Medical History / Comment(s): NIDDM type II, 1998 LEUKEMIA (CLL- remission), sinus problems, seasonal allergies, tinnitis bilaterally, OA hands, R wrist carpal tunnel, past fx with L elbow, R rotator cuff tendon problems, L rotator cuff tear, left knee pain History of Any Multi-Drug Resistant Organisms: None Reported Past Surgical History: Heart Catheterization, Orthopedic Surgery Additional Past Surgical History / Comment(s): LEFT HAND thumb tendon repair. Past Anesthesia/Blood Transfusion Reactions: No Reported Reaction Past Psychological History: No Psychological Hx Reported Smoking Status: Never smoker Past Alcohol Use History: None Reported Past Drug Use History: None Reported - Past Family History Father Family Medical History: CVA/TIA Additional Family Medical History / Comment(s): Father at the age of 85yrs. Mother Family Medical History: Diabetes Mellitus Additional Family Medical History / Comment(s): Mother at the age of 90yrs. Medications and Allergies Home Medications Medication Instructions Recorded Confirmed Type Cetirizine HCl [Zyrtec] 10 mg PO DAILY 05/25/17 07/27/21 History Montelukast Sodium [Singulair] 10 mg PO DAILY 05/25/17 07/27/21 History Insulin NPH Hum/Reg Insulin Hm 17 units SQ AC-BRKFST 03/05/20 07/27/21 History [Relion Novolin 70-30 Flexpen] Fluticasone Nasal [place] [Flonase 1 spr EA NOSTRIL DAILY 01/24/21 07/27/21 History Nasal [place]] HYDROcodone/APAP 5-325MG [[place] 1 tab PO Q6HR PRN 01/24/21 07/27/21 History 5-325] Ketorolac 0.5% Ophth Soln [Acular 1 drop BOTH EYES DAILY 01/24/21 07/27/21 History 0.5%] Prednisolone Acetate/Pf 1 drop BOTH EYES DAILY 01/24/21 07/27/21 History [Prednisolone Acet 1% Eye Drop] ALPRAZolam [Xanax] 0.25 mg PO DAILY PRN 02/13/21 07/27/21 History Metoprolol Succinate (ER) [Toprol 25 mg PO DAILY 02/13/21 07/27/21 History XL] Atorvastatin [Lipitor] 80 mg PO HS 03/08/21 07/27/21 History Insulin NPH Hum/Reg Insulin Hm See Protocol SQ AC-SUPPER PRN 03/29/21 07/27/21 History [Relion Novolin 70-30 Flexpen] Baclofen [Lioresal] 10 mg PO DAILY 04/18/21 07/27/21 History SILVER sulfADIAZINE CREAM 1 applic TOPICAL BID 04/18/21 07/27/21 History [Silvadene Cream] Isosorbide Mononitrate ER [Imdur] 30 mg PO DAILY #30 tab 04/19/21 07/27/21 Rx Nitroglycerin Sl Tabs [Nitrostat] 0.4 mg SUBLINGUAL Q5M PRN #20 tab 04/19/21 07/27/21 Rx Gabapentin 300 mg PO HS 07/27/21 07/27/21 History Omeprazole 40 mg PO DAILY 07/27/21 07/27/21 History lisinopriL [Zestril] 20 mg PO DAILY 07/27/21 07/27/21 History Allergies Allergy/AdvReac Type Severity Reaction Status Date / Time amoxicillin [From Augmentin] Allergy Rash/Hives Verified 07/27/21 17:12 clavulanic acid Allergy Rash/Hives Verified 07/27/21 17:12 [From Augmentin] Physical Exam Vitals: Vital Signs Temp Pulse Pulse Pulse Resp BP BP 07/28/21 01:38 97.4 F L 51 L 16 146/79 07/27/21 21:20 98.1 F 50 L 16 191/84 07/27/21 20:27 51 L 16 161/60 07/27/21 20:00 18 07/27/21 16:15 57 L 57 L 16 161/64 07/27/21 15:33 97.7 F 57 L 18 195/95 Pulse Ox 07/28/21 01:38 94 L 07/27/21 21:20 96 07/27/21 20:27 98 07/27/21 20:00 07/27/21 16:15 96 07/27/21 15:33 98 Intake and Output 07/27/21 07/28/21 07/28/21 22:59 06:59 14:59 Intake Total 200 Balance 200 Intake: Oral 200 Other: # Voids 1 1 Weight 86.183 kg GENERAL: The patient is alert and oriented x3, not in any acute distress. Well developed, well nourished. HEENT: Pupils are round and equally reacting to light. EOMI. No scleral icterus. No conjunctival pallor. Normocephalic, atraumatic. No pharyngeal erythema. No thyromegaly. CARDIOVASCULAR: S1 and S2 present. No murmurs, rubs, or gallops. PULMONARY: Chest is clear to auscultation, no wheezing or crackles. ABDOMEN: Soft, nontender, nondistended, normoactive bowel sounds. No palpable organomegaly. MUSCULOSKELETAL: No joint swelling or deformity. EXTREMITIES: No cyanosis, clubbing, or pedal edema. NEUROLOGICAL: Gross neurological examination did not reveal any focal deficits. SKIN: No rashes. No petechiae Results CBC & Chem 7: 07/27/21 15:34 07/27/21 15:34 Labs: Abnormal Lab Results - Last 24 Hours (Table) 07/27/21 07/27/21 07/27/21 Range/Units 15:34 15:34 22:56 WBC 22.0 H (3.8-10.6) k/uL RBC 4.20 L (4.30-5.90) m/uL Hgb 12.9 L (13.0-17.5) gm/dL Hct 37.7 L (39.0-53.0) % Plt Count 117 L (150-450) k/uL Lymphocytes # 15.8 H (1.0-4.8) k/uL PT (9.0-12.0) sec INR (<1.2) APTT 59.0 H (22.0-30.0) sec Sodium 135 L (137-145) mmol/L Glucose 202 H (74-99) mg/dL 07/28/21 Range/Units 05:44 WBC (3.8-10.6) k/uL RBC (4.30-5.90) m/uL Hgb (13.0-17.5) gm/dL Hct (39.0-53.0) % Plt Count (150-450) k/uL Lymphocytes # (1.0-4.8) k/uL PT 12.1 H (9.0-12.0) sec INR 1.2 H (<1.2) APTT (22.0-30.0) sec Sodium (137-145) mmol/L Glucose (74-99) mg/dL Thrombosis Risk Factor Assmnt - Choose All That Apply Each Factor Represents 1 point: Obesity (BMI >25) Each Risk Factor Represents 2 Points: Age 61-74 years Thrombosis Risk Factor Assessment Total Risk Factor Score: 3 Thrombosis Risk Factor Assessment Level: Moderate Risk Assessment and Plan Assessment: Chest pain, rule out cardiac causes Diabetes mellitus Hypertension Chronic leukocytosis, 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 Continue same treatment. Continue with symptomatic treatment. Resume home medication. Monitor lytes and vitals. DVT and GI prophylaxis. Further recommendations depends on the clinical course of the patient DVT prophylaxis: heparin GI Prophylaxis: Pepcid Prognosis is guarded
[2021-07-28 12:36] LABS: Basophils # (A) 0.08 X 10*3/uL (0.00-0.10); Basophils % (A) 0.4 %; Eosinophils # (A) 0.24 X 10*3/uL (0.04-0.35); Eosinophils % (A) 1.1 %; HCT 37.2 % (39.6-50.0); HGB 12.1 g/dL (13.0-17.0); Lymphocytes # (A) 18.69 X 10*3/uL (0.90-5.00); Lymphocytes % (A) 82.4 %; MCH 29.7 pg (27.0-32.0); MCHC 32.5 g/dL (32.0-37.0); MCV 91.2 fL (80.0-97.0); Mean Platelet Volume 10.8 fL (9.5-12.2); Monocytes # (A) 0.92 X 10*3/uL (0.20-1.00); Monocytes % (A) 4.1 %; Neutrophils # (A) 2.71 X 10*3/uL (1.80-7.70); Neutrophils % (A) 11.9 %; Platelet Count 110 X 10*3/uL (140-440); RBC 4.08 X 10*6/uL (4.40-5.60); RDW 13.9 % (11.5-14.5); WBC 22.67 X 10*3/uL (4.50-10.00)
[2021-07-28] MEDS: INSULIN ASPART (NovoLOG) 100 UNIT/ML VIAL SQ SCH ×3 (13:07→20:23)
--- NOTE | 2021-07-28 13:52 | CC ---
CARDIAC CATHETERIZATION REPORT DATE OF SERVICE: 07/28/2021 PERFORMING PHYSICIAN: Waldemar Macdonald MD. PROCEDURE PERFORMED: 1. Selective right and left coronary angiogram. 2. Left heart catheterization. INDICATION: This is a 76-year-old gentleman with coronary artery disease as well as hypertension and dyslipidemia who was experiencing symptoms of chest discomfort. He underwent myocardial perfusion imaging stress test and that revealed lateral ischemia and because of that, a heart catheterization was advised. APPROACH: Right radial artery. COMPLICATION: None. LEVEL OF SEDATION: Moderate with sedation length of 13 minutes. PROCEDURE DESCRIPTION: After obtaining informed consent, the patient was brought to the cardiac labor and delivery nurse. The right radial artery was cannulated using micropuncture technique, the micropuncture wire passed easily then I placed a 6-Bengali sheath at the right radial artery. I gave the patient 2 mg of verapamil IA and 10,000 units of heparin IV. Selective right and left coronary angiogram performed with JR4 and JL3.5 catheters. Left heart catheterization was performed using 5-Bengali pigtail catheter. The procedure was completed without any complication. SELECTIVE CORONARY ANGIOGRAM: 1. The right coronary artery is a large caliber vessel. It is a dominant vessel. The RCA has intermediate lesion in the midportion, appeared to be in the range of 40% to 50%. 2. The left main is angiographically normal. It bifurcates into left circumflex and left anterior descending artery. 3. The left circumflex is a large caliber vessel. It is a nondominant vessel. The left circumflex is angiographically normal. The midportion has mild disease only, appeared to be in the range of 20% to 30%. 4. The LAD is a large caliber vessel. The LAD appeared to have mild disease distally. It gives rise into three diagonal branches, all appeared to be angiographically normal. HEMODYNAMICS: The LVEDP was about 4-6 mmHg without significant gradient across aortic valve. CONCLUSION: 1. Intermediate nonobstructive disease involving the mid RCA. 2. Low left side filling pressure. MMODL / IJN: [id number] /
[2021-07-28] MEDS: HYDROcodone/APAP 5-325MG 1 EACH TAB PO PRN ×2 (14:01→20:26)
--- NOTE | 2021-07-28 15:04 | P.CRDCN ---
History of Present Illness History of present illness: This is Dr. Orlando dictating a consult on this patient The patient was interviewed and examined IMPRESSION / ASSESSMENT: Chest discomfort a few hours after Lexiscan cardiac stress test Lexiscan cardiac stress test shows lateral wall ischemia according to Dr. De Luna Hypertension, diabetes, leukemia in remission No evidence for acute myocardial infarction PLAN: Discussed with Dr. Macdonald and we will proceed with coronary angiography today Continue cardiac medications HPI Patient started experiencing chest discomfort which is quite severe, after completion of the Lexiscan Cardiolite stress test, a few hours later He came to the hospital EKGs did not show any evidence for ischemia Cardiac enzymes are normal ROS: No fever chills or rigors, no cough, phlegm or expectoration, no nausea, vomiting or diarrhea, no hematuria, dysuria, no musculoskeletal complaints, no strokes or seizures, no skin lesions. 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 Past Anesthesia/Blood Transfusion Reactions: No Reported Reaction Past Psychological History: No Psychological Hx Reported Smoking Status: Never smoker Past Alcohol Use History: None Reported Past Drug Use History: None Reported - Past Family History Father Family Medical History: CVA/TIA Additional Family Medical History / Comment(s): Father at the age of 85yrs. Mother Family Medical History: Diabetes Mellitus Additional Family Medical History / Comment(s): Mother at the age of 90yrs. Medications and Allergies Home Medications Medication Instructions Recorded Confirmed Type Cetirizine HCl [Zyrtec] 10 mg PO DAILY 05/25/17 07/27/21 History Montelukast Sodium [Singulair] 10 mg PO DAILY 05/25/17 07/27/21 History Insulin NPH Hum/Reg Insulin Hm 17 units SQ AC-BRKFST 03/05/20 07/27/21 History [Relion Novolin 70-30 Flexpen] Fluticasone Nasal [place] [Flonase 1 spr EA NOSTRIL DAILY 01/24/21 07/27/21 History Nasal [place]] HYDROcodone/APAP 5-325MG [[place] 1 tab PO Q6HR PRN 01/24/21 07/27/21 History 5-325] Ketorolac 0.5% Ophth Soln [Acular 1 drop BOTH EYES DAILY 01/24/21 07/27/21 History 0.5%] Prednisolone Acetate/Pf 1 drop BOTH EYES DAILY 01/24/21 07/27/21 History [Prednisolone Acet 1% Eye Drop] ALPRAZolam [Xanax] 0.25 mg PO DAILY PRN 02/13/21 07/27/21 History Metoprolol Succinate (ER) [Toprol 25 mg PO DAILY 02/13/21 07/27/21 History XL] Atorvastatin [Lipitor] 80 mg PO HS 03/08/21 07/27/21 History Insulin NPH Hum/Reg Insulin Hm See Protocol SQ AC-SUPPER PRN 03/29/21 07/27/21 History [Relion Novolin 70-30 Flexpen] Baclofen [Lioresal] 10 mg PO DAILY 04/18/21 07/27/21 History SILVER sulfADIAZINE CREAM 1 applic TOPICAL BID 04/18/21 07/27/21 History [Silvadene Cream] Isosorbide Mononitrate ER [Imdur] 30 mg PO DAILY #30 tab 04/19/21 07/27/21 Rx Nitroglycerin Sl Tabs [Nitrostat] 0.4 mg SUBLINGUAL Q5M PRN #20 tab 04/19/21 07/27/21 Rx Gabapentin 300 mg PO HS 07/27/21 07/27/21 History Omeprazole 40 mg PO DAILY 07/27/21 07/27/21 History lisinopriL [Zestril] 20 mg PO DAILY 07/27/21 07/27/21 History Aspirin 81 mg PO DAILY tab 07/28/21 Rx Allergies Allergy/AdvReac Type Severity Reaction Status Date / Time amoxicillin [From Augmentin] Allergy Rash/Hives Verified 07/27/21 17:12 clavulanic acid Allergy Rash/Hives Verified 07/27/21 17:12 [From Augmentin] Physical Exam Vitals: Vital Signs Temp Pulse Pulse Pulse Resp BP BP 07/28/21 14:18 50 L 174/76 07/28/21 13:44 53 L 161/70 07/28/21 13:13 50 L 169/76 07/28/21 12:44 55 L 181/66 07/28/21 12:28 51 L 148/79 07/28/21 12:13 54 L 171/75 07/28/21 11:59 57 L 135/61 07/28/21 11:43 98.6 F 56 L 18 155/75 07/28/21 07:00 97.5 F L 50 L 18 148/65 07/28/21 01:38 97.4 F L 51 L 16 146/79 07/27/21 21:20 98.1 F 50 L 16 191/84 07/27/21 20:27 51 L 16 161/60 07/27/21 20:00 18 07/27/21 16:15 57 L 57 L 16 161/64 07/27/21 15:33 97.7 F 57 L 18 195/95 Pulse Ox 07/28/21 14:18 98 07/28/21 13:44 97 07/28/21 13:13 96 07/28/21 12:44 98 07/28/21 12:28 97 07/28/21 12:13 95 07/28/21 11:59 97 07/28/21 11:43 96 07/28/21 07:00 95 07/28/21 01:38 94 L 07/27/21 21:20 96 07/27/21 20:27 98 07/27/21 20:00 07/27/21 16:15 96 07/27/21 15:33 98 Intake and Output 07/28/21 07/28/21 07/28/21 06:59 14:59 22:59 Intake Total 100 Output Total 600 Balance -500 Intake: IV 100 Output: Urine 600 Other: # Voids 1 2 Results 07/28/21 05:44 07/27/21 15:34 Cardiac Enzymes 07/27/21 07/27/21 07/27/21 Range/Units 15:34 15:34 18:17 AST 28 (17-59) U/L Troponin I <0.012 <0.012 (0.000-0.034) ng/mL 07/27/21 Range/Units 21:14 AST (17-59) U/L Troponin I <0.012 (0.000-0.034) ng/mL Coagulation 07/27/21 07/27/21 07/28/21 Range/Units 15:34 22:56 05:44 PT 11.4 12.1 H (9.0-12.0) sec APTT 23.0 59.0 H (22.0-30.0) sec CBC 07/27/21 07/28/21 Range/Units 15:34 05:44 WBC 22.0 H 22.67 H (3.8-10.6) k/uL RBC 4.20 L 4.08 L (4.30-5.90) m/uL Hgb 12.9 L 12.1 L (13.0-17.5) gm/dL Hct 37.7 L 37.2 L (39.0-53.0) % Plt Count 117 L 110 L (150-450) k/uL Comprehensive Metabolic Panel 07/27/21 Range/Units 15:34 Sodium 135 L (137-145) mmol/L Potassium 4.1 (3.5-5.1) mmol/L Chloride 103 (98-107) mmol/L Carbon Dioxide 23 (22-30) mmol/L BUN 12 (9-20) mg/dL Creatinine 0.76 (0.66-1.25) mg/dL Glucose 202 H (74-99) mg/dL Calcium 9.0 (8.4-10.2) mg/dL AST 28 (17-59) U/L ALT 21 (4-49) U/L Alkaline Phosphatase 101 (38-126) U/L Total Protein 6.4 (6.3-8.2) g/dL Albumin 3.8 (3.5-5.0) g/dL Current Medications Generic Name Dose Route Start Last Admin Trade Name Freq PRN Reason Stop Dose Admin Hydrocodone Bitart/Acetaminophen 1 each 07/27/21 22:57 07/28/21 14:01 Hydrocodone/Apap 5-325mg 1 Each Tab PO 1 each Q6HR PRN Administration Pain Alprazolam 0.25 mg 07/28/21 07:56 Alprazolam 0.25 Mg Tab PO DAILY PRN Anxiety Aspirin 81 mg 07/29/21 09:00 Aspirin 81 Mg PO DAILY RAJWINDER Atorvastatin Calcium 80 mg 07/27/21 23:00 07/27/21 23:21 Atorvastatin 80 Mg Tab PO 80 mg HS RAJWINDER Administration Baclofen 10 mg 07/28/21 09:00 07/28/21 09:05 Baclofen 10 Mg Tab PO 10 mg DAILY RAJWINDER Administration Famotidine 20 mg 07/28/21 21:00 Famotidine 20 Mg Tab PO Q12HR RAJWINDER Fluticasone Propionate 1 spray 07/28/21 09:00 07/28/21 09:06 Fluticasone 50mcg/[place] Nasal 16gm EA NOSTRIL 1 spray DAILY RAJWINDER Administration Gabapentin 300 mg 07/27/21 23:00 07/27/21 23:21 Gabapentin 300 Mg Cap PO 300 mg HS RAJWINDER Administration Heparin Sodium (Porcine) 0 unit 07/27/21 16:47 Heparin Sodium 1,000 Un/Ml (10ml Vl) IV PER PROTOCOL PRN Low PTT Protocol Sodium Chloride 1,000 ml/ IV 1,000 mls @ 86.183 mls/hr 07/28/21 09:30 07/28/21 09:50 Solution IV 86.183 mls/hr .[id number] RAJWINDER Administration 1 ML/KG/HR Heparin Sodium (Porcine) 10, 1,001 mls @ 999 mls/hr 07/29/21 07:00 000 unit/ Sodium Chloride IRRIGATION 07/29/21 23:00 ONCE PRN INTRA-OP Heparin Sodium (Porcine) 2,500 250.5 mls @ 250 mls/hr 07/29/21 07:00 unit/ Sodium Chloride IRRIGATION 07/29/21 23:00 ONCE PRN INTRA-OP Sodium Chloride 1,000 mls @ 75 mls/hr 07/28/21 11:45 07/28/21 12:12 Saline 0.9% IV 07/28/21 16:46 75 mls/hr .[id number] RAJWINDER Administration Insulin Aspart 0 unit 07/28/21 12:30 07/28/21 13:07 Insulin Aspart (Novolog) 100 Unit/Ml Vial SQ 2 unit ACHS RAJWINDER Administration Protocol Isosorbide Mononitrate 30 mg 07/28/21 09:00 07/28/21 09:05 Isosorbide Mononitrate Er 30 Mg Tab.Er.24h PO 30 mg DAILY RAJWINDER Administration Ketorolac Tromethamine 1 drops 07/28/21 09:00 07/28/21 09:07 Ketorolac 0.5% Ophth Drops 5 Ml Btl BOTH EYES 1 drops DAILY RAJWINDER Administration Lisinopril 20 mg 07/28/21 09:00 07/28/21 09:05 Lisinopril 20 Mg Tab PO 20 mg DAILY RAJWINDER Administration Metoprolol Succinate 25 mg 07/28/21 09:00 07/28/21 09:05 Metoprolol Succinate (Er) 25 Mg Tab.Er.24h PO 25 mg DAILY RAJWINDER Administration Miscellaneous Information 1 each 07/28/21 11:37 Rx Info: Iv Contrast Was Given 1 Each Misc MISCELLANE 07/30/21 11:37 DAILY PRN Per Protocol Montelukast Sodium 10 mg 07/28/21 09:00 07/28/21 09:05 Montelukast 10 Mg Tab PO 10 mg DAILY RAJWINDER Administration Morphine Sulfate 4 mg 07/27/21 16:57 07/28/21 02:22 Morphine Sulfate 4 Mg/Ml Syringe IV 4 mg Q4HR PRN Administration Severe Pain Naloxone HCl 0.2 mg 07/27/21 16:57 Naloxone 0.4 Mg/Ml 1 Ml Vial IV Q2M PRN Opioid Reversal Ondansetron HCl 4 mg 07/27/21 16:57 Ondansetron 4 Mg/2 Ml Vial IVP Q8HR PRN Nausea And Vomiting Prednisolone Acetate 1 drops 07/28/21 09:00 07/28/21 09:06 Prednisolone Acetate 1% Ophth Drops 5 Ml Btl BOTH EYES 1 drops DAILY RAJWINDER Administration Intake and Output 07/28/21 07/28/21 07/28/21 06:59 14:59 22:59 Intake Total 100 Output Total 600 Balance -500 Intake: IV 100 Output: Urine 600 Other: # Voids 1 2 07/28/21 05:44 07/27/21 15:34
[2021-07-28 17:32] LABS: Glucose,Whole Blood 209 mg/dL (75-99)
[2021-07-28 20:19] LABS: Glucose,Whole Blood 205 mg/dL (75-99)
[2021-07-28] MEDS: FAMOTIDINE 20 MG TAB PO SCH (20:23)
[2021-07-28] MEDS: ATORVASTATIN 80 MG TAB PO SCH (20:23)
[2021-07-28] MEDS: GABAPENTIN 300 MG CAP PO SCH (20:23)
[2021-07-29] MEDS: HYDROcodone/APAP 5-325MG 1 EACH TAB PO PRN ×2 (02:34→09:16)
[2021-07-29 06:20] LABS: HCT 39.2 % (39.0-53.0); HGB 12.8 gm/dL (13.0-17.5); MCH 30.3 pg (25.0-35.0); MCHC 32.7 g/dL (31.0-37.0); MCV 92.6 fL (80.0-100.0); Mean Platelet Volume 7.9; Platelet Count 120 k/uL (150-450); RBC 4.23 m/uL (4.30-5.90); WBC 19.3 k/uL (3.8-10.6)
[2021-07-29 06:27] LABS: African American GFR (CKD) >90 (>60 ml/min/1.73 sqM); Anion Gap 7 mmol/L; Blood Urea Nitrogen 14 mg/dL (9-20); Calcium 9.2 mg/dL (8.4-10.2); Carbon Dioxide 24 mmol/L (22-30); Chloride 102 mmol/L (98-107); Glucose 167 mg/dL (74-99); Non-African American GFR(CKD) 86 (>60 ml/min/1.73 sqM); Potassium 4.5 mmol/L (3.5-5.1); Sodium 133 mmol/L (137-145)
[2021-07-29] MEDS ORDERED: HEPARIN SODIUM,PORCINE 10,000 UNIT in SODIUM CHLORIDE 0.9% 1,000 ML IRRIGATION PRN (07:00)
[2021-07-29] MEDS ORDERED: HEPARIN SODIUM,PORCINE 2,500 UNIT in SODIUM CHLORIDE 0.9% 250 ML IRRIGATION PRN (07:00)
[2021-07-29 07:16] LABS: Glucose,Whole Blood 171 mg/dL (75-99)
[2021-07-29] MEDS ORDERED: ASPIRIN 81 MG PO SCH (09:00)
[2021-07-29] MEDS: METOPROLOL SUCCINATE (ER) 25 MG TAB.ER.24H PO SCH (09:16)
[2021-07-29] MEDS: MONTELUKAST 10 MG TAB PO SCH (09:17)
[2021-07-29] MEDS: FAMOTIDINE 20 MG TAB PO SCH (09:17)
[2021-07-29] MEDS: BACLOFEN 10 MG TAB PO SCH (09:17)
[2021-07-29] MEDS: lisinopriL 20 MG TAB PO SCH (09:17)
[2021-07-29] MEDS: ISOSORBIDE MONONITRATE ER 30 MG TAB.ER.24H PO SCH (09:17)
[2021-07-29] MEDS: INSULIN ASPART (NovoLOG) 100 UNIT/ML VIAL SQ SCH ×3 (09:18→18:18)
[2021-07-29] MEDS: FLUTICASONE 50MCG/SPRAY NASAL 16GM EA NOSTRIL SCH (09:24)
[2021-07-29] MEDS: prednisoLONE ACETATE 1% OPHTH DROPS 5 ML BTL BOTH EYES SCH (09:25)
[2021-07-29] MEDS: KETOROLAC 0.5% OPHTH DROPS 5 ML BTL BOTH EYES SCH (09:25)
[2021-07-29] MEDS: SODIUM CHLORIDE 0.9% 1,000 ML in EMPTY BAG 1 BAG IV SCH (11:50)
[2021-07-29 11:55] LABS: Neutrophils # (M) 2.32 k/uL (1.3-7.7); Neutrophils % (M) 12 %
[2021-07-29 11:56] LABS: Monocytes # (M) 0.39 k/uL (0-1.0); Nucleated Red Blood Cells 0 /100 WBC (0-0); Total Cells Counted 200
[2021-07-29 11:57] LABS: Anisocytosis (M) Present; Poikilocytosis (M) Present
[2021-07-29 12:02] LABS: Glucose,Whole Blood 229 mg/dL (75-99)
--- NOTE | 2021-07-29 14:57 | US ---
EXAMINATION TYPE: US venous doppler duplex LE DATE OF EXAM: 07/29/2021 2:46 PM COMPARISON: NONE CLINICAL HISTORY: leg swelling. bilateral leg edema SIDE PERFORMED: Bilateral TECHNIQUE: The lower extremity deep venous system is examined utilizing real time linear array sonog jose eduardo with graded compression, doppler sonography and color-flow sonography. VESSELS IMAGED: Common Femoral Vein Deep Femoral Vein Greater Saphenous Vein * Femoral Vein Popliteal Vein Small Saphenous Vein * Proximal Calf Veins (* superficial vessels) Right Leg: no evidence of DVT Left Leg: no evidence of DVT. complex anechoic area left popliteal fossa = 5.1 x 2.4 x 3.8cm, Corea' s cyst IMPRESSION: No evidence for DVT at this time.
[2021-07-29 15:02] VITALS: BP 162/75; PULSE 52; RESP 20; TEMP 97.3
[2021-07-29 17:10] LABS: Glucose,Whole Blood 240 mg/dL (75-99)
--- NOTE | 2021-07-29 17:34 | CT ---
EXAMINATION TYPE: CT angio chest DATE OF EXAM: 07/29/2021 COMPARISON: 10/11/1920 HISTORY: r/o PE CT DLP: 366.9 mGycm CONTRAST: CT chest with contrast and 3D reconstruction with MIP imaging is performed with IV Contrast, patient injected with 100 mL of Isovue 370. Contrast-enhanced CT of the chest was performed through the course of the pulmonary arteries with ada g and mediastinal window settings submitted. 3D reconstruction with MIP imaging was also performed. PULMONARY ARTERIES: The pulmonary arteries and their major tributaries are patent. I do not see jessica dence for sizable filling defect to suggest pulmonary embolic process. LUNGS: The lungs are clear and free of infiltrate. No evidence for atelectasis. No pulmonary nodule or mass is detected. No pleural effusion. MEDIASTINUM: Thoracic aorta is of normal caliber,however, evaluation is limited given timing of the contrast bolus. If there is concern for thoracic aortic pathology consider NAVA. Correlate clinicall y . Persistent cardiomegaly. No evidence for mediastinal mass. No mediastinal lymph nodes greater th an 1cm. HILAR STRUCTURES: No evidence for mass. No hilar lymph nodes greater than 1 cm. UPPER ABDOMEN: No significant abnormality is seen. IMPRESSION: 1. No evidence for Pulmonary embolism at this time.
== END 2021-07-29 18:25 | disposition home or self-care (01) ==
LOC: EC 15:24 → 6NMEDSUR 17:19
PROVIDERS: ADMIT Hospitalist; ATTEND Hospitalist
DX: R07.2 Precordial pain (principal); E11.9 Type 2 diabetes mellitus without complications; I11.9 Hypertensive heart disease without heart failure; C91.11 Chronic lymphocytic leukemia of B-cell type in remission; I25.110 Atherosclerotic heart disease of native coronary artery with unstable angina pectoris; H93.13 Tinnitus, bilateral; K21.9 Gastro-esophageal reflux disease without esophagitis; E78.5 Hyperlipidemia, unspecified; M19.90 Unspecified osteoarthritis, unspecified site; J30.2 Other seasonal allergic rhinitis; D64.9 Anemia, unspecified; R00.1 Bradycardia, unspecified; R11.0 Nausea; E66.9 Obesity, unspecified; Z68.25 Body mass index [BMI] 25.0-25.9, adult; M19.042 Primary osteoarthritis, left hand; M19.041 Primary osteoarthritis, right hand; Z20.822 Contact with and (suspected) exposure to COVID-19; Z79.899 Other long term (current) drug therapy; Z79.4 Long term (current) use of insulin; Z79.82 Long term (current) use of aspirin; Z88.1 Allergy status to other antibiotic agents; Z88.0 Allergy status to penicillin; Z82.3 Family history of stroke; Z83.3 Family history of diabetes mellitus
CPT/HCPCS: 96376 ×2; 96366 ×3; 96375 ×2; 96365; 99285; 36415; 93005; 93306; 93458; 85379; 83880; 80053; 80048; 83735; 84484; 85025 ×3; 85610 ×2; 85730; 87635; 71046; 93970; 71275; G0378 ×3; C1894; C1769; J2250; J2270 ×2; J2001; J1644 ×3; Q9967 ×2

== ENCOUNTER → 2021-08-17 | Outpatient (CLI) | payer MEDICARE ==
[2021-08-17 08:28] VITALS: BP 171/69; PULSE 55; RESP 18
--- NOTE | 2021-08-17 12:24 | P.PAINCN ---
History of Present Illness - Reason for Consult Consult date: 08/17/21 - Chief Complaint Low back pain - History of Present Illness Dung is a 76-year-old male presenting to clinic for initial evaluation. He is a referral from Dr. Ledesma's office. He reports that his back pain happened about a year ago when he fell out of his jeep in the yard. His pain is mostly in his lower back more on the left side however pain does radiate to the right intermittently. This is been going on since March of last year. He describes his pain as a dull, sharp, achy sensation. Pain is made worse with certain positions, excessive standing, walking long distances. His pain is made better with rest, ice, heat and medications. He has been in physical therapy however he had knee surgery which he had to stop physical therapy however he is going to return soon. He does attempt stretching at home however that activity is too painful for him. He currently takes [place] as needed to get this medication from his primary care provider. At his best he rates his pain as 4 out of 10. At worst his pain is 10 out of 10 on a 0-to-10 scale. Eyes any saddle anesthesia, bowel or bladder dysfunction, or any other red flag symptoms. He denies any adverse reaction or palpitations from the medication and is taking. Past Medical History Past Medical History: Coronary Artery Disease (CAD), Cancer, Diabetes Mellitus, GERD/Reflux, Hypertension, Osteoarthritis (OA) Additional Past Medical History / Comment(s): NIDDM type II, 1999 LEUKEMIA (CLL- remission), sinus problems, seasonal allergies, tinnitis bilaterally, OA hands, R wrist carpal tunnel, past fx with L elbow, R rotator cuff tendon problems, L rotator cuff tear, left knee pain History of Any Multi-Drug Resistant Organisms: None Reported Past Surgical History: Heart Catheterization, Orthopedic Surgery Additional Past Surgical History / Comment(s): LEFT HAND thumb tendon repair. Past Anesthesia/Blood Transfusion Reactions: No Reported Reaction Past Psychological History: No Psychological Hx Reported Smoking Status: Never smoker Past Alcohol Use History: None Reported Past Drug Use History: None Reported - Past Family History Father Family Medical History: CVA/TIA Additional Family Medical History / Comment(s): Father at the age of 85yrs. Mother Family Medical History: Diabetes Mellitus Additional Family Medical History / Comment(s): Mother at the age of 90yrs. Medications and Allergies Home Medications Medication Instructions Recorded Confirmed Type Montelukast Sodium [Singulair] 10 mg PO DAILY 05/25/17 08/17/21 History Insulin NPH Hum/Reg Insulin Hm 17 units SQ AC-BRKFST 03/05/20 08/17/21 History [Relion Novolin 70-30 Flexpen] Fluticasone Nasal [place] [Flonase 1 spr EA NOSTRIL DAILY 01/24/21 08/17/21 History Nasal [place]] HYDROcodone/APAP 5-325MG [[place] 1 tab PO Q6HR PRN 01/24/21 08/17/21 History 5-325] Ketorolac 0.5% Ophth Soln [Acular 1 drop BOTH EYES DAILY 01/24/21 08/17/21 History 0.5%] Prednisolone Acetate/Pf 1 drop BOTH EYES DAILY 01/24/21 08/17/21 History [Prednisolone Acet 1% Eye Drop] Metoprolol Succinate (ER) [Toprol 25 mg PO DAILY 02/13/21 08/17/21 History XL] Atorvastatin [Lipitor] 80 mg PO HS 03/08/21 08/17/21 History Baclofen [Lioresal] 10 mg PO DAILY 04/18/21 08/17/21 History SILVER sulfADIAZINE CREAM 1 applic TOPICAL BID 04/18/21 08/17/21 History [Silvadene Cream] Isosorbide Mononitrate ER [Imdur] 30 mg PO DAILY #30 tab 04/19/21 08/17/21 Rx Nitroglycerin Sl Tabs [Nitrostat] 0.4 mg SUBLINGUAL Q5M PRN #20 tab 04/19/21 08/17/21 Rx Gabapentin 300 mg PO HS 07/27/21 08/17/21 History Omeprazole 40 mg PO DAILY 07/27/21 08/17/21 History lisinopriL [Zestril] 20 mg PO DAILY 07/27/21 08/17/21 History Aspirin 81 mg PO DAILY tab 07/28/21 08/17/21 Rx Allergies Allergy/AdvReac Type Severity Reaction Status Date / Time amoxicillin [From Augmentin] Allergy Rash/Hives Verified 08/17/21 08:28 clavulanic acid Allergy Rash/Hives Verified 08/17/21 08:28 [From Augmentin] Physical Exam REVIEW OF ORGAN SYSTEMS: CONSTITUTIONAL: No fevers or chills. No recent weight loss. EYES: denies troubles with vision. HEENT: No difficulties with hearing. No nosebleeds. No difficulty swallowing. RESPIRATORY: Denies any troubles with breathing or dyspnea on exertion. CARDIOVASCULAR: Denies any chest pain, palpitations, or recent heart attacks. GASTROINTESTINAL: Denies fatty food intolerance. Has change in bowel habits and gas bloat. GENITOURINARY: Denies any blood in urine. Has increased urinary frequency. NEUROLOGICAL: + numbness and tingling along the distal extremities. No seizure disorders or headaches. MUSCULOSKELETAL: Has back pain. SKIN:no skin cancer. No rash. PSYCHIATRIC: Denies current depression or suicidal thoughts. ENDOCRINE: Denies current thyroid disorders. Denies any blood sugar glucose intolerance. HEME/LYMPHATIC: Denies any lumps and bumps around the neck. History of deep venous thrombosis. ALLERGY/IMMUNOLOGY: No immunoglobulin therapy. No immune deficiencies. BREAST: Denies current breast lumps, pain or nipple discharge. Physical Examinations : Constitutiona : Cooperative , not in acute distress, walks with cane HEENT : nech : supple , no Lymphadenopathy , normal thyroid size . : eyes no ptosis , no icterus, no photophobia . : ENT normal of hearing , normal oropharynx , no Thrush . Respiratory : Chest clear to auscultations Bilaterally , no wheezing , no Rhonchi . Cardiovascula : regular rate and rhythem , S1 , S2 , no S3 , no S4. Gastrointestina : abdomen soft no tenderness , bowel sounds , no organomegally . Genitourinary : Defferred . neurologic : Cranial nerve II to XII intact , no focal neurological deffecit . psychatric : alert , oriented X 3 , appropriate affect , intact judgment and insight . Lymphatic : no Lymphadenopathy . musculoskeltal : Cervical Spine motor stregnth in the deltoid and biceps, normal right side , normal Left side motor stregnth biceps and the wrist extensors normal right side ,normal left side . motor stregnth in the triceps muscle . normal Right side , normal Left side deep tendon reflexes= normal at the biceps , normal at Brachioradialis , normal at triceps. cervical facet loading test: Positive Bilaterally Spurling test= positive bilaterally. Neck distraction test= positive bilaterally. Jesica sign= negative Lumber spine moter stegnth lower extremities ,thigh and legs 5/5 Right side , 5/5 Left side deep tendon reflexes : normal Knee Jerk , normal ankle Jerk lumber facet Loading Test= positive Right , positive Left Range of motion of the lumbar spine Flexion 30 degrees, extension 10 degrees strait leg raising test , positive at 20 degree left [place]ere test= negative Right , and positive left . Sever tenderness over the Sacroiliac joint on the Left sides [place] test= positive left Seated flexion test= positive left Assessment and Plan Assessment: Assessment and plan= chronic low back pain secondary to lumbar degenerative disc disease , lumbar spondylosis with lumbar facet arthropathy . chronic and current use of high-risk medication (opioids) Patient denies any side effects of the current pain medication and the current treatment/medication helping the patient to do activity of daily living , Diagnoses, prognosis, treatment options, including but not limited to physical therapy, medication management, interventional therapies, and surgery, were discussed with the patient All the questions answered The narcotic consent was not signed. MAPS Reviwed and it was apropriate . Medication managements= no medications from us Plan: Patient could benefit from left sacroiliac joint injection #1 of up to 3. Scheduled follow-up appointment in 4 weeks to evaluate procedures effectiveness Dr. Ferrer was available by phone for consultation during his visit I spent extensive time with the patient and review of his records. Medications seem to be offering good relief. There is no signs of any misuse or diversion. I discussed with the patient that these medications need to be used as prescribed as misuse of medication can cause significant dysfunction and possibly . I have spent 50 minutes on patient care today. The time was used to review the medical records including relevant urine studies and Prescription history (MAPs), review of the available imaging, evaluation and examination of the patient, coordination of care with the medical staff and if applicable referring physicians, as well as creation of the medical record. Time with Patient: Greater than 30 PQRS Measure Charge Sheet - Pain Location Left Lower Back Non-Pharmacological Interventions: Heat, Ice, Inactivity, Position/Reposition, Sitting, Stretching Pharmacological Interventions: PRN Medication PQRS Narrative: Smoking Status Never smoker Home Medications: Ambulatory Orders Montelukast Sodium [Singulair] 10 mg PO DAILY 05/25/17 Insulin NPH Hum/Reg Insulin Hm [Relion Novolin 70-30 Flexpen] 17 units SQ AC- BRKFST 03/05/20 Fluticasone Nasal [place] [Flonase Nasal [place]] 1 spr EA NOSTRIL DAILY 01/24/21 HYDROcodone/APAP 5-325MG [[place] 5-325] 1 tab PO Q6HR PRN 01/24/21 Ketorolac 0.5% Ophth Soln [Acular 0.5%] 1 drop BOTH EYES DAILY 01/24/21 Prednisolone Acetate/Pf [Prednisolone Acet 1% Eye Drop] 1 drop BOTH EYES DAILY 01/24/21 Metoprolol Succinate (ER) [Toprol XL] 25 mg PO DAILY 02/13/21 Atorvastatin [Lipitor] 80 mg PO HS 03/08/21 Baclofen [Lioresal] 10 mg PO DAILY 04/18/21 SILVER sulfADIAZINE CREAM [Silvadene Cream] 1 applic TOPICAL BID 04/18/21 Isosorbide Mononitrate ER [Imdur] 30 mg PO DAILY #30 tab 04/19/21 Nitroglycerin Sl Tabs [Nitrostat] 0.4 mg SUBLINGUAL Q5M PRN #20 tab 04/19/21 Gabapentin 300 mg PO HS 07/27/21 Omeprazole 40 mg PO DAILY 07/27/21 lisinopriL [Zestril] 20 mg PO DAILY 07/27/21 Aspirin 81 mg PO DAILY tab 07/28/21
== END ==
LOC: PNWHC3 07:52
PROVIDERS: ATTEND Student in an Organized Health Care Education/Training Program
DX: M51.36 Other intervertebral disc degeneration, lumbar region (principal); M47.816 Spondylosis without myelopathy or radiculopathy, lumbar region; G89.29 Other chronic pain; Z79.891 Long term (current) use of opiate analgesic; I25.10 Atherosclerotic heart disease of native coronary artery without angina pectoris; E11.9 Type 2 diabetes mellitus without complications; I10 Essential (primary) hypertension; M19.90 Unspecified osteoarthritis, unspecified site; Z79.4 Long term (current) use of insulin; Z79.899 Other long term (current) drug therapy; K21.9 Gastro-esophageal reflux disease without esophagitis; Z88.1 Allergy status to other antibiotic agents
CPT/HCPCS: 99211

== ENCOUNTER 2021-09-06 04:52 | Observation (INO) | payer MEDICARE ==
--- NOTE | 2021-09-06 05:06 | ED ---
Chest Pain HPI - General Stated Complaint: Chest Pain Time Seen by Provider: 09/06/21 05:03 - History of Present Illness MD Complaint: chest pain Onset/Timin -: hour(s) Onset: during rest Pain Location: substernal Pain Radiation: none Severity: moderate Quality: heaviness Consistency: constant Improves With: nothing Worsens With: nothing Anginal Symptoms: dyspnea - Related Data Home Medications Medication Instructions Recorded Confirmed Montelukast Sodium [Singulair] 10 mg PO DAILY 05/25/17 09/06/21 Insulin NPH Hum/Reg Insulin Hm 17 units SQ AC-BRKFST 03/05/20 09/06/21 [Relion Novolin 70-30 Flexpen] Fluticasone Nasal [place] [Flonase 1 spr EA NOSTRIL DAILY 01/24/21 09/06/21 Nasal [place]] HYDROcodone/APAP 5-325MG [[place] 1 tab PO Q6HR PRN 01/24/21 09/06/21 5-325] Ketorolac 0.5% Ophth Soln [Acular 1 drop RIGHT EYE BID 01/24/21 09/06/21 0.5%] Atorvastatin [Lipitor] 80 mg PO HS 03/08/21 09/06/21 Baclofen [Lioresal] 10 mg PO DAILY 04/18/21 09/06/21 SILVER sulfADIAZINE CREAM 1 applic TOPICAL BID 04/18/21 09/06/21 [Silvadene Cream] Gabapentin 300 mg PO HS 07/27/21 09/06/21 Omeprazole 40 mg PO DAILY 07/27/21 09/06/21 lisinopriL [Zestril] 20 mg PO DAILY 07/27/21 09/06/21 ALPRAZolam [Xanax] 0.25 mg PO DAILY PRN 09/06/21 09/06/21 Brimonidine Tartrate/Timolol 1 drop BOTH EYES BID 09/06/21 09/06/21 [Combigan 0.2%-0.5% Eye Drops] Latanoprost/Pf [Latanoprost 0.005% 1 drop BOTH EYES HS 09/06/21 09/06/21 Eye Drop] Nitroglycerin Sl Tabs [Nitrostat] 0.4 mg SL Q5M PRN 09/06/21 09/06/21 Previous Rx's Medication Instructions Recorded Isosorbide Mononitrate ER [Imdur] 30 mg PO DAILY #30 tab 04/19/21 Aspirin 81 mg PO DAILY tab 07/28/21 Azithromycin [Zithromax Tri-José Luis (3 500 mg PO DAILY 3 Days #3 tab 09/08/21 tabs)] amLODIPine [Norvasc] 2.5 mg PO DAILY #30 tab 09/08/21 Allergies Allergy/AdvReac Type Severity Reaction Status Date / Time amoxicillin [From Augmentin] Allergy Rash/Hives Verified 09/06/21 09:44 clavulanic acid Allergy Rash/Hives Verified 09/06/21 09:44 [From Augmentin] Review of Systems ROS Statement: Those systems with pertinent positive or pertinent negative responses have been documented in the HPI. ROS Other: All systems not noted in ROS Statement are negative. Constitutional: Denies: fever, chills, weakness Respiratory: Reports: dyspnea. Denies: cough, wheezes, hemoptysis Cardiovascular: Reports: chest pain. Denies: palpitations, orthopnea, edema, syncope Gastrointestinal: Denies: abdominal pain, vomiting, diarrhea Genitourinary: Denies: dysuria, hematuria Musculoskeletal: Denies: back pain Skin: Denies: rash Neurological: Denies: headache, weakness EKG Findings - EKG Results: EKG: interpreted by DEB, sinus rhythm, normal ST/T, not changed from: (07/27/2021) EKG shows: bradycardia (Rate 50 bpm) - Blocks, [place], Hypertrophy, ST Abn: Chamber hypertrophy or enlargement: only voltage criteria for left ventricular hypertrophy Past Medical History Past Medical History: Coronary Artery Disease (CAD), Cancer, Diabetes Mellitus, GERD/Reflux, Hypertension, Osteoarthritis (OA) Additional Past Medical History / Comment(s): NIDDM type II, 1999 LEUKEMIA (CLL- remission), sinus problems, seasonal allergies, tinnitis bilaterally, OA hands, R wrist carpal tunnel, past fx with L elbow, R rotator cuff tendon problems, L rotator cuff tear, left knee pain History of Any Multi-Drug Resistant Organisms: None Reported Past Surgical History: Heart Catheterization, Orthopedic Surgery Additional Past Surgical History / Comment(s): LEFT HAND thumb tendon repair. Past Anesthesia/Blood Transfusion Reactions: No Reported Reaction Past Psychological History: No Psychological Hx Reported Smoking Status: Never smoker Past Alcohol Use History: None Reported Past Drug Use History: None Reported - Past Family History Father Family Medical History: CVA/TIA Additional Family Medical History / Comment(s): Father at the age of 85yrs. Mother Family Medical History: Diabetes Mellitus Additional Family Medical History / Comment(s): Mother at the age of 90yrs. General Exam General appearance: alert, in no apparent distress Head exam: Present: atraumatic, normocephalic Eye exam: Present: normal appearance. Absent: scleral icterus, conjunctival injection ENT exam: Present: normal oropharynx Neck exam: Present: normal inspection Respiratory exam: Present: normal lung sounds bilaterally. Absent: respiratory distress, wheezes, rales, rhonchi, stridor Cardiovascular Exam: Present: regular rate, normal rhythm, normal heart sounds. Absent: systolic murmur, diastolic murmur, rubs, gallop GI/Abdominal exam: Present: soft. Absent: distended, tenderness, guarding, rebound, rigid, mass Extremities exam: Present: normal inspection, normal capillary refill. Absent: pedal edema, calf tenderness Back exam: Present: normal inspection. Absent: CVA tenderness (R), CVA tenderness (L) Neurological exam: Present: alert Skin exam: Present: warm, dry, intact, normal color. 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
[2021-09-06 06:21] LABS: HCT 37.8 % (39.0-53.0); HGB 13.1 gm/dL (13.0-17.5); MCH 31.1 pg (25.0-35.0); MCHC 34.8 g/dL (31.0-37.0); MCV 89.4 fL (80.0-100.0); Mean Platelet Volume 7.7; RBC 4.23 m/uL (4.30-5.90); WBC 22.4 k/uL (3.8-10.6)
[2021-09-06 06:57] LABS: ALT 21 U/L (4-49); AST 25 U/L (17-59); African American GFR (CKD) >90 (>60 ml/min/1.73 sqM); Alkaline Phosphatase 89 U/L (38-126); Anion Gap 9 mmol/L; Blood Urea Nitrogen 14 mg/dL (9-20); Carbon Dioxide 24 mmol/L (22-30); Chloride 104 mmol/L (98-107); Glucose 241 mg/dL (74-99); Magnesium 1.8 mg/dL (1.6-2.3); Non-African American GFR(CKD) 86 (>60 ml/min/1.73 sqM); Potassium 4.1 mmol/L (3.5-5.1); Sodium 137 mmol/L (137-145); Total Bilirubin 0.7 mg/dL (0.2-1.3); Total Protein 6.3 g/dL (6.3-8.2)
[2021-09-06 07:00] LABS: Partial Thromboplastin Time 20.6 sec (22.0-30.0)
[2021-09-06 07:17] LABS: Eosinophils # (M) 0.22 k/uL (0-0.7); Lymphocytes # (M) 18.14 k/uL (1.0-4.8); Monocytes # (M) 0.67 k/uL (0-1.0); Neutrophils # (M) 3.58 k/uL (1.3-7.7); Neutrophils % (M) 16 %; Nucleated Red Blood Cells 0 /100 WBC (0-0); Total Cells Counted 200
[2021-09-06 07:20] LABS: Platelet Count 89 k/uL (150-450)
[2021-09-06 07:22] LABS: Poikilocytosis (M) Present
--- NOTE | 2021-09-06 07:24 | XR ---
EXAMINATION TYPE: XR chest 2V DATE OF EXAM: 09/06/2021 COMPARISON: 07/27/2021 INDICATION: Chest pain TECHNIQUE: Frontal and lateral views of the chest are obtained. FINDINGS: The heart size is moderately prominent. The pulmonary vasculature is normal. Some minimal increased lung markings may be in the mid left lung. Lungs otherwise appear clear. IMPRESSION: 1. Moderate cardiomegaly. 2. Minimal infiltrate may be within the periphery of the left mid lung. Correlate for atelectasis or atypical pneumonia. Follow-up can be performed as clinically indicated.
[2021-09-06] MEDS ORDERED: PNEUMONIA PROTOCOL UTILIZED 1 EACH MISC PO PRN (07:52)
[2021-09-06] MEDS: AZITHROMYCIN 500 MG TAB PO SCH (09:24)
[2021-09-06] MEDS: SODIUM CHLORIDE 0.9% 1,000 ML IV SCH (09:28)
[2021-09-06 11:14] LABS: Glucose,Whole Blood 144 mg/dL (75-99)
[2021-09-06] MEDS: lisinopriL 20 MG TAB PO SCH (11:36)
[2021-09-06] MEDS: INSULN ASP PRT/INSULIN ASPART 100 UNIT/ML 10 ML VIAL SQ SCH (11:36)
[2021-09-06] MEDS: ISOSORBIDE MONONITRATE ER 30 MG TAB.ER.24H PO SCH (11:36)
[2021-09-06] MEDS: PANTOPRAZOLE 40 MG TABLET PO SCH (11:36)
[2021-09-06] MEDS: INSULIN ASPART (NovoLOG) 100 UNIT/ML VIAL SQ SCH ×3 (13:49→21:18)
[2021-09-06] MEDS: HEPARIN SODIUM,PORCINE/PF 5,000 UNIT/0.5 ML SYRINGE SQ SCH ×2 (15:48→21:12)
[2021-09-06 17:29] LABS: Glucose,Whole Blood 118 mg/dL (75-99)
[2021-09-06] MEDS: HYDROcodone/APAP 5-325MG 1 EACH TAB PO PRN (18:34)
[2021-09-06 20:57] LABS: Glucose,Whole Blood 148 mg/dL (75-99)
[2021-09-06] MEDS ORDERED: NON FORMULARY DRUG (Brimonidine Tartrate/Timolol [Combigan 0.2%-0.5% Eye Drops] 5 ML Ml) BOTH EYES SCH (21:00)
[2021-09-06] MEDS: ATORVASTATIN 80 MG TAB PO SCH (21:12)
[2021-09-06] MEDS: GABAPENTIN 300 MG CAP PO SCH (21:12)
[2021-09-06] MEDS: TIMOLOL 0.5% OPHTH DROPS 5 ML BTL BOTH EYES SCH (21:14)
[2021-09-06] MEDS: LATANOPROST 0.005% OPHTH DROPS 2.5 ML BTL BOTH EYES SCH (21:14)
[2021-09-06] MEDS: BRIMONIDINE TARTRATE 0.2% DROPS 5 ML BTL BOTH EYES SCH (21:14)
[2021-09-07] MEDS: HYDROcodone/APAP 5-325MG 1 EACH TAB PO PRN ×3 (01:34→21:31)
[2021-09-07] MEDS: ALBUTEROL NEBULIZED 2.5 MG/3 ML INHALATION PRN ×4 (07:29→19:27)
[2021-09-07 07:31] LABS: Glucose,Whole Blood 143 mg/dL (75-99)
[2021-09-07] MEDS: lisinopriL 20 MG TAB PO SCH (08:03)
[2021-09-07] MEDS: ASPIRIN 81 MG PO SCH (08:03)
[2021-09-07] MEDS: AZITHROMYCIN 500 MG TAB PO SCH (08:03)
[2021-09-07] MEDS: ISOSORBIDE MONONITRATE ER 30 MG TAB.ER.24H PO SCH (08:03)
[2021-09-07] MEDS: HEPARIN SODIUM,PORCINE/PF 5,000 UNIT/0.5 ML SYRINGE SQ SCH ×2 (08:03→17:34)
[2021-09-07] MEDS: MONTELUKAST 10 MG TAB PO SCH (08:03)
[2021-09-07] MEDS: PANTOPRAZOLE 40 MG TABLET PO SCH (08:03)
[2021-09-07] MEDS: BRIMONIDINE TARTRATE 0.2% DROPS 5 ML BTL BOTH EYES SCH ×2 (08:04→21:34)
[2021-09-07] MEDS: INSULN ASP PRT/INSULIN ASPART 100 UNIT/ML 10 ML VIAL SQ SCH (08:10)
[2021-09-07] MEDS: INSULIN ASPART (NovoLOG) 100 UNIT/ML VIAL SQ SCH ×4 (08:11→21:32)
[2021-09-07] MEDS: TIMOLOL 0.5% OPHTH DROPS 5 ML BTL BOTH EYES SCH ×2 (08:11→21:34)
[2021-09-07] MEDS: FLUTICASONE 50MCG/SPRAY NASAL 16GM EA NOSTRIL SCH (08:29)
--- NOTE | 2021-09-07 09:31 | P.HPIM ---
History of Present Illness H&P Date: 09/06/21 Chief Complaint: Shortness of breath Patient is a 76-year-old male with a known history of hypertension, hyperlipidemia, coronary artery disease with prior cardiac catheterization, diabetes type 2 insulin-dependent, history of leukemia, sinus ALLERGIES osteoarthritis and hearing disorder/deafness presents to ER with complaints of left lower chest pain. Patient also having cough without any sputum production. Patient states that he had similar symptoms when he had pneumonia previously. Patient was recently discharged from the hospital on 07/27/2021 and was admitted to the hospital with chest pain. Cardiology was consulted and cardiac cath showed intermediate nonobstructive disease involving mid RCA. Lower left-sided filling pressure. CTA chest showed no evidence of PE. 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 Chest x-ray showed moderate cardiomegaly. Minimal infiltrate may be within the periphery of left mid lung. Correlate for atelectasis or atypical pneumonia. COVID-19 PCR not detected. Patient was started on antibiotics in the form of ceftriaxone and azithromycin. EKG showed sinus bradycardia next laboratory data showed WBC 22.4 hemoglobin 13.1 and platelets 89 and lymphocytes 18.1 Sodium 137 production 4.1 chloride 104 BUN 14 and creatinine 0.84 and blood sugar is 241 admission Troponin 0.012 and COVID-19 PCR not detected. Review of Systems Constitutional: Patient denies any fever or chills . No generalized weakness or weight loss. Abdomen: Patient denied nausea vomiting and diarrhea and abdominal pain. Cardiovascular: Patient complains of chest pain. Minimal short of breath no palpitations. Respiratory: patient denied any cough is from production. Does have shortness of breath Neurologic: Patient denied any numbness or tingling headache. Musculoskeletal: Patient denies any complaints of joint swelling or deformity. Skin: Negative Psychiatric: Negative Endocrine: No heat or cold intolerance. No recent weight gain. Genitourinary: No dysuria or hematuria. All other 14 point ROS negative except the above Past Medical History Past Medical History: Coronary Artery Disease (CAD), Cancer, Diabetes Mellitus, Eye Disorder, GERD/Reflux, Hearing Disorder / Deafness, Hyperlipidemia, Hypertension, Osteoarthritis (OA) Additional Past Medical History / Comment(s): NIDDM type II, 1998 LEUKEMIA (CLL- remission), sinus problems, seasonal allergies, tinnitis bilaterally, OA mul tiple joints, L/R wrist carpal tunnel, past fx with L elbow, R rotator cuff problems, chronic left knee pain d/t injury, increased eye pressure. History of Any Multi-Drug Resistant Organisms: None Reported Past Surgical History: Heart Catheterization, Orthopedic Surgery Additional Past Surgical History / Comment(s): L hand thumb tendon repair, L knee arthroscopy, bilateral cataract removals Past Anesthesia/Blood Transfusion Reactions: No Reported Reaction Smoking Status: Never smoker - Past Family History Father Family Medical History: CVA/TIA Additional Family Medical History / Comment(s): Father at the age of 85yrs. Mother Family Medical History: Diabetes Mellitus Additional Family Medical History / Comment(s): Mother at the age of 90yrs. Medications and Allergies Home Medications Medication Instructions Recorded Confirmed Type Montelukast Sodium [Singulair] 10 mg PO DAILY 05/25/17 09/06/21 History Insulin NPH Hum/Reg Insulin Hm 17 units SQ AC-BRKFST 03/05/20 09/06/21 History [Relion Novolin 70-30 Flexpen] Fluticasone Nasal [place] [Flonase 1 spr EA NOSTRIL DAILY 01/24/21 09/06/21 History Nasal [place]] HYDROcodone/APAP 5-325MG [[place] 1 tab PO Q6HR PRN 01/24/21 09/06/21 History 5-325] Ketorolac 0.5% Ophth Soln [Acular 1 drop RIGHT EYE BID 01/24/21 09/06/21 History 0.5%] Metoprolol Succinate (ER) [Toprol 25 mg PO DAILY 02/13/21 09/06/21 History XL] Atorvastatin [Lipitor] 80 mg PO HS 03/08/21 09/06/21 History Baclofen [Lioresal] 10 mg PO DAILY 04/18/21 09/06/21 History SILVER sulfADIAZINE CREAM 1 applic TOPICAL BID 04/18/21 09/06/21 History [Silvadene Cream] Isosorbide Mononitrate ER [Imdur] 30 mg PO DAILY #30 tab 04/19/21 09/06/21 Rx Gabapentin 300 mg PO HS 07/27/21 09/06/21 History Omeprazole 40 mg PO DAILY 07/27/21 09/06/21 History lisinopriL [Zestril] 20 mg PO DAILY 07/27/21 09/06/21 History Aspirin 81 mg PO DAILY tab 07/28/21 09/06/21 Rx ALPRAZolam [Xanax] 0.25 mg PO DAILY PRN 09/06/21 09/06/21 History Brimonidine Tartrate/Timolol 1 drop BOTH EYES BID 09/06/21 09/06/21 History [Combigan 0.2%-0.5% Eye Drops] Latanoprost/Pf [Latanoprost 0.005% 1 drop BOTH EYES HS 09/06/21 09/06/21 History Eye Drop] Nitroglycerin Sl Tabs [Nitrostat] 0.4 mg SL Q5M PRN 09/06/21 09/06/21 History Allergies Allergy/AdvReac Type Severity Reaction Status Date / Time amoxicillin [From Augmentin] Allergy Rash/Hives Verified 09/06/21 09:44 clavulanic acid Allergy Rash/Hives Verified 09/06/21 09:44 [From Augmentin] Physical Exam Vitals: Vital Signs Temp Pulse Pulse Pulse Resp BP BP 09/07/21 07:40 50 L 09/07/21 07:31 54 L 09/07/21 06:40 97.6 F 54 L 18 166/77 09/07/21 04:35 97.8 F 54 L 16 155/80 09/07/21 02:00 97.9 F 48 L 16 114/66 09/06/21 20:00 50 L 76 17 09/06/21 18:10 98 F 76 17 131/73 09/06/21 16:23 80 16 09/06/21 15:19 97.7 F 80 18 160/87 09/06/21 11:01 97.6 F 59 L 18 09/06/21 09:33 52 L 18 202/89 BP Pulse Ox 09/07/21 07:40 09/07/21 07:31 97 09/07/21 06:40 09/07/21 04:35 96 09/07/21 02:00 95 09/06/21 20:00 09/06/21 18:10 09/06/21 16:23 09/06/21 15:19 09/06/21 11:01 223/98 97 09/06/21 09:33 97 Intake and Output 09/06/21 09/07/21 09/07/21 22:59 06:59 14:59 Other: Voiding Method Toilet # Voids 2 PHYSICAL EXAMINATION: Patient is lying in the bed comfortably, no acute distress, awake alert and oriented.. HEENT: Normocephalic. Neck is supple. Pupils reactive. Nostrils clear. Oral cavity is moist. Neck reveals no JVD, carotid bruits, or thyromegaly. CHEST EXAMINATION: Trachea is central. Symmetrical expansion. Scattered coarse sounds. No wheezing or rhonchi. Nonlabored breathing.. CARDIAC: Normal S1, S2 with no gallops. No murmurs ABDOMEN: Soft. Bowel sounds normal. No organomegaly. No abdominal bruits. Extremities: reveal no edema. No clubbing or cyanosis Neurologically awake, alert, oriented x3 with well-coordinated movements. No f ocal deficits noted Skin: No rash or skin lesions. Psychiatric: Cooperative. Nonsuicidal Musculoskeletal: No joint swelling or deformity. Normal range of motion. Results CBC & Chem 7: 09/06/21 05:30 09/06/21 05:30 Labs: Abnormal Lab Results - Last 24 Hours (Table) 09/06/21 09/06/21 09/06/21 Range/Units 05:30 11:05 17:22 POC Glucose (mg/dL) 144 H 118 H (75-99) mg/dL Procalcitonin <0.02 L (0.02-0.09) ng/mL 09/06/21 09/07/21 Range/Units 20:55 07:26 POC Glucose (mg/dL) 148 H 143 H (75-99) mg/dL Procalcitonin (0.02-0.09) ng/mL Thrombosis Risk Factor Assmnt - DVT/VTE Prophylaxis DVT/VTE Prophylaxis: Pharmacologic Prophylaxis ordered - Choose All That Apply Any of the Below Risk Factors Present?: Yes Each Factor Represents 1 point: Obesity (BMI >25) Other Risk Factors: Yes Each Risk Factor Represents 2 Points: Age 61-74 years, Malignancy Other congenital or acquired thrombophilia - If yes, enter type in comment: No Thrombosis Risk Factor Assessment Total Risk Factor Score: 5 Thrombosis Risk Factor Assessment Level: High Risk Assessment and Plan Assessment: Left-sided chest pain. Ruled out ACS. Likely pleuritic. Recent cardiac catheterization showed intermediate CAD and mid RCA Possible pneumonia/atelectasis Chronically elevated leukocytosis due to history of CLL Hyperglycemia with uncontrolled diabetes type 2 Uncontrolled hypertension on admission Coronary artery disease. Status post cardiac catheterization in July 2021. No PCI Osteoarthritis Chronic sinus ALLERGIES GERD DVT prophylaxis with heparin subcu Plan: Patient will be continued on telemetry monitoring. Serial EKG and troponin 1 negative. Encourage incentive spirometry. Continue with antibiotics in the form of ceftriaxone and azithromycin. Follow- up pro-calcitonin level. COVID-19 PCR is negative. Continue with symptomatic management and repeat CBC and BMP tomorrow. Time with Patient: Greater than 30
[2021-09-07] MEDS: SODIUM CHLORIDE 0.9% 1,000 ML IV SCH (10:05)
[2021-09-07 11:18] LABS: Glucose,Whole Blood 287 mg/dL (75-99)
[2021-09-07 17:29] LABS: Glucose,Whole Blood 219 mg/dL (75-99)
[2021-09-07 21:05] LABS: Glucose,Whole Blood 163 mg/dL (75-99)
[2021-09-07] MEDS: GABAPENTIN 300 MG CAP PO SCH (21:33)
[2021-09-07] MEDS: ATORVASTATIN 80 MG TAB PO SCH (21:33)
[2021-09-07] MEDS: LATANOPROST 0.005% OPHTH DROPS 2.5 ML BTL BOTH EYES SCH (21:34)
[2021-09-08] MEDS: HEPARIN SODIUM,PORCINE/PF 5,000 UNIT/0.5 ML SYRINGE SQ SCH ×2 (00:47→09:03)
[2021-09-08] MEDS: PANTOPRAZOLE 40 MG TABLET PO SCH (07:45)
[2021-09-08] MEDS: MONTELUKAST 10 MG TAB PO SCH (07:45)
[2021-09-08] MEDS: ASPIRIN 81 MG PO SCH (07:45)
[2021-09-08] MEDS: ISOSORBIDE MONONITRATE ER 30 MG TAB.ER.24H PO SCH (07:45)
[2021-09-08] MEDS: lisinopriL 20 MG TAB PO SCH (07:46)
[2021-09-08] MEDS: TIMOLOL 0.5% OPHTH DROPS 5 ML BTL BOTH EYES SCH (07:46)
[2021-09-08] MEDS: FLUTICASONE 50MCG/SPRAY NASAL 16GM EA NOSTRIL SCH (07:46)
[2021-09-08] MEDS: BRIMONIDINE TARTRATE 0.2% DROPS 5 ML BTL BOTH EYES SCH (07:46)
[2021-09-08 07:48] LABS: Glucose,Whole Blood 181 mg/dL (75-99)
[2021-09-08] MEDS: ALBUTEROL NEBULIZED 2.5 MG/3 ML INHALATION PRN (08:45)
[2021-09-08] MEDS: INSULN ASP PRT/INSULIN ASPART 100 UNIT/ML 10 ML VIAL SQ SCH (09:01)
[2021-09-08] MEDS: INSULIN ASPART (NovoLOG) 100 UNIT/ML VIAL SQ SCH ×2 (09:02→13:13)
[2021-09-08] MEDS: SODIUM CHLORIDE 0.9% 1,000 ML IV SCH (11:36)
[2021-09-08 12:18] LABS: Glucose,Whole Blood 152 mg/dL (75-99)
[2021-09-08 13:24] VITALS: BP 165/80; PULSE 56; RESP 18; TEMP 98.2
--- NOTE | 2021-09-08 15:03 | P.PN ---
Subjective Progress Note Date: 09/07/21 Patient is a 76-year-old male with a known history of hypertension, hyperlipidemia, coronary artery disease with prior cardiac catheterization, diabetes type 2 insulin-dependent, history of leukemia, sinus ALLERGIES osteoarthritis and hearing disorder/deafness presents to ER with complaints of left lower chest pain. Patient also having cough without any sputum production. Patient states that he had similar symptoms when he had pneumonia previously. Patient was recently discharged from the hospital on 07/27/2021 and was admitted to the hospital with chest pain. Cardiology was consulted and cardiac cath showed intermediate nonobstructive disease involving mid RCA. Lower left-sided filling pressure. CTA chest showed no evidence of PE. 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 Chest x-ray showed moderate cardiomegaly. Minimal infiltrate may be within the periphery of left mid lung. Correlate for atelectasis or atypical pneumonia. COVID-19 PCR not detected. Patient was started on antibiotics in the form of ceftriaxone and azithromycin. EKG showed sinus bradycardia next laboratory data showed WBC 22.4 hemoglobin 13.1 and platelets 89 and lymphocytes 18.1 Sodium 137 production 4.1 chloride 104 BUN 14 and creatinine 0.84 and blood sugar is 241 admission Troponin 0.012 and COVID-19 PCR not detected. 09/07/2021 Patient is currently lying in the bed. Awake alert and oriented 3. Complaining of epigastric and left upper abdominal pain. Patient is on antibiotics for possible pneumonia. Pro-calcitonin level is not elevated. Possible atelectasis versus gastritis/peptic ulcer disease is being considered. GI will be be consulted for further evaluation. Otherwise patient has been afebrile. Saturating at 96% on room air. Blood pressure is still elevated. Laboratory data available at this time. Patient is being continued on Protonix 40 mg daily. Current medications reviewed. Objective - Vital Signs Vital signs: Vital Signs Temp 97.6 F 09/07/21 19:30 Pulse 58 L 09/07/21 19:38 Resp 20 09/07/21 19:30 BP 167/64 09/07/21 19:30 Pulse Ox 95 09/07/21 19:30 Intake & Output 09/07/21 09/07/21 09/08/21 06:59 18:59 06:59 Intake Total 290 200 Balance 290 200 Intake: Intake, IV Titration 290 Amount Sodium Chloride 0.9% 1, 240 000 ml @ 20 mls/hr IV . Q24H RAJWINDER Rx#:[id number] cefTRIAXone 2 gm In 50 Sodium Chloride 0.9% 50 ml @ 100 mls/hr IVPB Q24HR RAJWINDER Rx#:[id number] Oral 200 Other: Voiding Method Toilet # Voids 2 - Exam PHYSICAL EXAMINATION: Patient is lying in the bed comfortably, no acute distress, awake alert and oriented.. HEENT: Normocephalic. Neck is supple. Pupils reactive. Nostrils clear. Oral cavity is moist. Neck reveals no JVD, carotid bruits, or thyromegaly. CHEST EXAMINATION: Trachea is central. Symmetrical expansion. Scattered coarse sounds. No wheezing or rhonchi. Nonlabored breathing.. CARDIAC: Normal S1, S2 with no gallops. No murmurs ABDOMEN: Soft. Bowel sounds normal. No organomegaly. No abdominal bruits. Extremities: reveal no edema. No clubbing or cyanosis Neurologically awake, alert, oriented x3 with well-coordinated movements. No focal deficits noted Skin: No rash or skin lesions. Psychiatric: Cooperative. Nonsuicidal Musculoskeletal: No joint swelling or deformity. Normal range of motion. - Labs CBC & Chem 7: 09/06/21 05:30 09/06/21 05:30 Labs: Abnormal Lab Results - Last 24 Hours (Table) 09/07/21 09/07/21 09/07/21 Range/Units 07:26 11:15 17:24 POC Glucose (mg/dL) 143 H 287 H 219 H (75-99) mg/dL 09/07/21 Range/Units 20:31 POC Glucose (mg/dL) 163 H (75-99) mg/dL Microbiology - Last 24 Hours (Table) 09/06/21 08:23 Blood Culture - Preliminary Blood No Growth after 24 hours 09/06/21 08:10 Blood Culture - Preliminary Blood No Growth after 24 hours Assessment and Plan Assessment: Left-sided chest pain. Ruled out ACS. Likely pleuritic. Recent cardiac catheterization showed intermediate CAD and mid RCA Epigastric and left upper quadrant abdominal pain. Possible pneumonia/atelectasis. Low suspicion for pneumonia. Chronically elevated leukocytosis due to history of CLL Hyperglycemia with uncontrolled diabetes type 2 Uncontrolled hypertension on admission Coronary artery disease. Status post cardiac catheterization in July 2021. No PCI Osteoarthritis Chronic sinus ALLERGIES GERD DVT prophylaxis with heparin subcu Plan: Patient will be continued on telemetry monitoring. Serial EKG and troponin 1 negative. Encourage incentive spirometry. Continue with antibiotics in the form of ceftriaxone and azithromycin. Continue PPI, GI evaluation. Not elevated pro-calcitonin level. COVID-19 PCR is negative. Beta blockers on hold due to sinus bradycardia. Heart rate 56. Continue with symptomatic management and repeat CBC and BMP tomorrow. Time with Patient: Greater than 30
[2021-09-08] MEDS ORDERED: amLODIPine 2.5 MG TAB PO SCH (15:15)
--- NOTE | 2021-09-08 15:16 | P.CONS ---
History of Present Illness - Reason for Consult Consult date: 09/08/21 Upper abdominal pain Requesting physician: Keisha Ying - Chief Complaint chest pain, left arm pain - History of Present Illness This is a white male who presented to the emergency department with complaints of chest pain and left upper extremity pain. Patient states he had pain in the left upper arm which also create was in the left chest wall and radiating across to his chest which he thought was his heart.he has a past medical history including GERD, coronary artery disease, cancer, diabetes mellitus, hypertension and osteoarthritis. The patient was recently admitted to the hospital with similar complaints and had a full cardiac workup. Gastroenterology was consulted his primary medicine suspected possible upper abdominal pain. Patient denies any abdominal pain, nausea, or vomiting. He states bowel movements are regular. States his acid reflux is been well controlled and takes omeprazole regularly at home. He states that he believes this is more muscular, however at the time he was concerned it could be his heart.admitting labs WBC 22.4 hemog lobin 13 platelet count 89,000 and INR 1.0. Chemistry unremarkable. Patient denies any previous EGD or colonoscopy. Review of Systems REVIEW OF SYSTEMS: CARDIOPULMONARY: chest wall pain without shortness of breath. Gastrointestinal: No abdominal pain. No nausea or vomiting. No hematemesis, coffee-ground emesis. No rectal bleeding, or melena. GENITOURINARY: No dysuria or hematuria. MUSCULOSKELETAL: Reports normal range of motion., Joint pain. SKIN: No rashes. No jaundice. ENDOCRINE: No chills, fevers. No excessive weight gain or loss. No polydipsia or polyuria. PSYCHIATRIC: Unremarkable. NEUROLOGY: No change in mental status. Denies dizziness, headache. ENT: Vision unremarkable. CONSTITUTIONAL: No recent weight loss. No fever, chills, night sweats. Past Medical History Past Medical History: Coronary Artery Disease (CAD), Cancer, Diabetes Mellitus, Eye Disorder, GERD/Reflux, Hearing Disorder / Deafness, Hyperlipidemia, Hypertension, Osteoarthritis (OA) Additional Past Medical History / Comment(s): NIDDM type II, 1999 LEUKEMIA (CLL- remission), sinus problems, seasonal allergies, tinnitis bilaterally, OA multiple joints, L/R wrist carpal tunnel, past fx with L elbow, R rotator cuff problems, chronic left knee pain d/t injury, increased eye pressure. History of Any Multi-Drug Resistant Organisms: None Reported Past Surgical History: Heart Catheterization, Orthopedic Surgery Additional Past Surgical History / Comment(s): L hand thumb tendon repair, L knee arthroscopy, bilateral cataract removals Past Anesthesia/Blood Transfusion Reactions: No Reported Reaction Smoking Status: Never smoker - Past Family History Father Family Medical History: CVA/TIA Additional Family Medical History / Comment(s): Father at the age of 85yrs. Mother Family Medical History: Diabetes Mellitus Additional Family Medical History / Comment(s): Mother at the age of 90yrs. Medications and Allergies Home Medications Medication Instructions Recorded Confirmed Type Montelukast Sodium [Singulair] 10 mg PO DAILY 05/25/17 09/06/21 History Insulin NPH Hum/Reg Insulin Hm 17 units SQ AC-BRKFST 03/05/20 09/06/21 History [Relion Novolin 70-30 Flexpen] Fluticasone Nasal [place] [Flonase 1 spr EA NOSTRIL DAILY 01/24/21 09/06/21 History Nasal [place]] HYDROcodone/APAP 5-325MG [[place] 1 tab PO Q6HR PRN 01/24/21 09/06/21 History 5-325] Ketorolac 0.5% Ophth Soln [Acular 1 drop RIGHT EYE BID 01/24/21 09/06/21 History 0.5%] Metoprolol Succinate (ER) [Toprol 25 mg PO DAILY 02/13/21 09/06/21 History XL] Atorvastatin [Lipitor] 80 mg PO HS 03/08/21 09/06/21 History Baclofen [Lioresal] 10 mg PO DAILY 04/18/21 09/06/21 History SILVER sulfADIAZINE CREAM 1 applic TOPICAL BID 04/18/21 09/06/21 History [Silvadene Cream] Isosorbide Mononitrate ER [Imdur] 30 mg PO DAILY #30 tab 04/19/21 09/06/21 Rx Gabapentin 300 mg PO HS 07/27/21 09/06/21 History Omeprazole 40 mg PO DAILY 07/27/21 09/06/21 History lisinopriL [Zestril] 20 mg PO DAILY 07/27/21 09/06/21 History Aspirin 81 mg PO DAILY tab 07/28/21 09/06/21 Rx ALPRAZolam [Xanax] 0.25 mg PO DAILY PRN 09/06/21 09/06/21 History Brimonidine Tartrate/Timolol 1 drop BOTH EYES BID 09/06/21 09/06/21 History [Combigan 0.2%-0.5% Eye Drops] Latanoprost/Pf [Latanoprost 0.005% 1 drop BOTH EYES HS 09/06/21 09/06/21 History Eye Drop] Nitroglycerin Sl Tabs [Nitrostat] 0.4 mg SL Q5M PRN 09/06/21 09/06/21 History Allergies Allergy/AdvReac Type Severity Reaction Status Date / Time amoxicillin [From Augmentin] Allergy Rash/Hives Verified 09/06/21 09:44 clavulanic acid Allergy Rash/Hives Verified 09/06/21 09:44 [From Augmentin] Physical Exam Vitals: Vital Signs Temp Pulse Pulse Pulse Pulse Resp BP 09/08/21 08:58 60 09/08/21 08:45 64 09/08/21 07:50 57 L 09/08/21 07:20 98.3 F 57 L 16 09/08/21 04:58 97.4 F L 52 L 20 09/07/21 19:38 58 L 09/07/21 19:30 97.6 F 52 L 20 09/07/21 19:27 56 L 09/07/21 15:47 53 L 09/07/21 15:38 55 L 09/07/21 12:20 98.1 F 57 L 18 156/67 09/07/21 11:40 55 L 09/07/21 11:33 53 L BP Pulse Ox 09/08/21 08:58 09/08/21 08:45 09/08/21 07:50 183/75 09/08/21 07:20 182/70 97 09/08/21 04:58 162/65 97 09/07/21 19:38 09/07/21 19:30 167/64 95 09/07/21 19:27 09/07/21 15:47 09/07/21 15:38 09/07/21 12:20 93 L 09/07/21 11:40 09/07/21 11:33 Intake and Output 09/07/21 09/08/21 09/08/21 22:59 06:59 14:59 Intake Total 490 100 Balance 490 100 Intake: Intake, IV Titration 290 Amount Sodium Chloride 0.9% 1, 240 000 ml @ 20 mls/hr IV . Q24H RAJWINDER Rx#:[id number] cefTRIAXone 2 gm In 50 Sodium Chloride 0.9% 50 ml @ 100 mls/hr IVPB Q24HR RAJWINDER Rx#:[id number] Oral 200 100 Other: # Voids 1 General appearance: The patient is alert, oriented, appears in no acute distress. HET: Head is normocephalic and atraumatic. Conjunctiva pink. Sclera anicteric. Neck: Supple without lymphadenopathy. Trachea midline. Heart: S1 S2. Regular rate and rhythm. Lungs: Clear to auscultation. Chest: Normal expansion. Left Chest wall TTP. Abdomen: Soft, diffuse tenderness, greatest in the epigastric region, nondistended with bowel sounds. No guarding or rigidity. Skin: No rashes. No jaundice. Extremities: Normal skin color and turgor. No pedal edema. Neurological: No focal deficits. Alert and oriented x3. Results CBC & Chem 7: 09/06/21 05:30 09/06/21 05:30 Labs: Abnormal Lab Results - Last 24 Hours (Table) 09/07/21 09/07/21 09/07/21 Range/Units 11:15 17:24 20:31 POC Glucose (mg/dL) 287 H 219 H 163 H (75-99) mg/dL 09/08/21 Range/Units 07:46 POC Glucose (mg/dL) 181 H (75-99) mg/dL Microbiology - Last 24 Hours (Table) 09/06/21 19:51 Gram Stain - Preliminary Sputum Sputum Culture - Preliminary 09/06/21 08:23 Blood Culture - Preliminary Blood No Growth after 24 hours 09/06/21 08:10 Blood Culture - Preliminary Blood No Growth after 24 hours Chest x-ray: report reviewed (moderate cardiomegaly. Minimal infiltrate may be within the periphery of the left midlung. Correlate for atelectasis or atypical pneumonia. Follow-up can be performed as clinically indicated.) Assessment and Plan (1) Chest pain Narrative/Plan: 76-year-old male who presented to the emergency department with complaints of chest pain had a chest x-ray showing moderate cardiomegaly with minimal infiltrate that may be within the periphery of left midlung. Correlate for atelectasis or atypical pneumonia. Gastroenterology was consulted for possible upper quadrant abdominal pain. Patient was seen and evaluated with a nonacute abdomen. Patient denies any abdominal pain, nausea, or vomiting. He does state he has a history of gastric reflux disease however it is well controlled with the omeprazole. He has had no previous EGD or colonoscopy. He states that he had had a upper respiratory infection and was treated with Bactrim and was coughing for some time. He then was experiencing pain in his left arm as well as left chest wall that seemed to radiate across. The pain has improved and he now believes it is more musculoskeletal however he was concerned that it was his heart. There is no plans for endoscopic evaluation. Abdomen is benign.HEENT is likely musculoskeletal/inflammation. Current Visit: No Status: Acute Code(s): R07.9 - CHEST PAIN, UNSPECIFIED SNOMED Code(s): 16612024 Plan: 1. Continue symptomatic and supportive care 2. Continue Protonix 40 mg daily 3. Patient with benign abdomen. No plans on endoscopic evaluation. Likely related to musculoskeletal/inflammation possibly related to recent URI. 4. Patient is cleared for discharge by gastroenterology. If patient has further symptoms related to possible GERD/peptic ulcer disease he can follow-up as needed outpatient. Thank you for this consultation, gastroenterology will sign off. Dr. Tiffanie Perez I agree with the dictator's note, documented as a scribe by Giselle Gonzalez.
[2021-09-08] MEDS ORDERED: PNEUMOCOCCAL VACC-PNEUMOVAX 23 25 MCG/0.5 ML VIAL IM ONE (16:17)
== END 2021-09-08 16:49 | disposition home or self-care (01) ==
LOC: EC 04:52 → 5NMEDONC 07:53 → INTOOBSV 07:53 → 5NMEDONC 10:06 → UNDODISIN 09-08 16:49
PROVIDERS: ADMIT Internal Medicine; ATTEND Internal Medicine
PROC: 3E0234Z Introduction of Serum, Toxoid and Vaccine into Muscle, Percutaneous Approach (ICD-10-PCS; principal; 2021-09-08)
DX: R07.89 Other chest pain (principal); C91.11 Chronic lymphocytic leukemia of B-cell type in remission; E11.65 Type 2 diabetes mellitus with hyperglycemia; I11.9 Hypertensive heart disease without heart failure; I25.10 Atherosclerotic heart disease of native coronary artery without angina pectoris; K21.9 Gastro-esophageal reflux disease without esophagitis; E78.5 Hyperlipidemia, unspecified; H93.13 Tinnitus, bilateral; M19.041 Primary osteoarthritis, right hand; M19.042 Primary osteoarthritis, left hand; R00.1 Bradycardia, unspecified; R07.81 Pleurodynia; R10.12 Left upper quadrant pain; R10.13 Epigastric pain; G89.29 Other chronic pain; M25.562 Pain in left knee; H91.90 Unspecified hearing loss, unspecified ear; J30.2 Other seasonal allergic rhinitis; E66.9 Obesity, unspecified; Z68.28 Body mass index [BMI] 28.0-28.9, adult; Z20.822 Contact with and (suspected) exposure to COVID-19; Z79.82 Long term (current) use of aspirin; Z79.4 Long term (current) use of insulin; Z79.899 Other long term (current) drug therapy; Z88.0 Allergy status to penicillin; Z88.8 Allergy status to other drugs, medicaments and biological substances; Z87.01 Personal history of pneumonia (recurrent); Z98.41 Cataract extraction status, right eye; Z98.42 Cataract extraction status, left eye; Z87.81 Personal history of (healed) traumatic fracture; Z87.39 Personal history of other diseases of the musculoskeletal system and connective tissue; Z98.890 Other specified postprocedural states; Z82.3 Family history of stroke; Z83.3 Family history of diabetes mellitus
CPT/HCPCS: 96366 ×2; 96372 ×3; 96365; 99285; 36415; 94640 ×3; 94760; 93005; 80053; 83735; 84484; 85025; 85610; 85730; 87040; 87070; 87205; 84145; 87635; 71046; G0378 ×3; J0696 ×3; J1644 ×3

== ENCOUNTER 2021-10-06 18:21 | Observation (INO) | payer MEDICARE ==
[2021-10-06] MEDS ORDERED: MORPHINE SULFATE 2 MG/ML SYRINGE IVP STA (18:51)
[2021-10-06] MEDS ORDERED: ONDANSETRON 4 MG/2 ML VIAL IVP STA (18:51)
--- NOTE | 2021-10-06 19:09 | ED ---
General Adult HPI - General Chief complaint: Chest Pain Stated complaint: Chest Pain Time Seen by Provider: 10/06/21 18:35 Source: patient, EMS Mode of arrival: EMS Limitations: no limitations - History of Present Illness Initial comments: 76 year-old female patient presents to the emergency department for evaluation of midepigastric pain and chest pain. Patient states it started a couple of hours ago. He reports some shortness of breath. Denies radiation of the pain to his back, arms, or jaw. Denies vomiting. States he did have an admission with heart catheterization in July which showed a 50% blockage to one of his coronary arteries. States he is here today visiting his son who is dying of cancer, he is unsure if this is contributing to his symptoms. He did receive aspirin and nitro in ambulance. States nitro improved his pain somewhat. Patient denies any recent rash, fever, chills, cough, abdominal pain, diarrhea, constipation, back pain, numbness, tingling, dizziness, weakness, hematuria, dysuria, urinary urgency, urinary frequency, headache, visual changes, or any other complaints. - Related Data Home Medications Medication Instructions Recorded Confirmed Montelukast Sodium [Singulair] 10 mg PO DAILY 05/25/17 10/06/21 Insulin NPH Hum/Reg Insulin Hm 17 units SQ AC-BRKFST 03/05/20 10/06/21 [Relion Novolin 70-30 Flexpen] Fluticasone Nasal [place] [Flonase 1 spr EA NOSTRIL DAILY 01/24/21 10/06/21 Nasal [place]] HYDROcodone/APAP 5-325MG [[place] 1 tab PO Q6HR PRN 01/24/21 10/06/21 5-325] Ketorolac 0.5% Ophth Soln [Acular 1 drop BOTH EYES BID 01/24/21 10/06/21 0.5%] Atorvastatin [Lipitor] 80 mg PO HS 03/08/21 10/06/21 Baclofen [Lioresal] 10 mg PO DAILY 04/18/21 10/06/21 SILVER sulfADIAZINE CREAM 1 applic TOPICAL BID 04/18/21 10/06/21 [Silvadene Cream] Gabapentin 300 mg PO HS 07/27/21 10/06/21 Omeprazole 40 mg PO DAILY 07/27/21 10/06/21 lisinopriL [Zestril] 20 mg PO DAILY 07/27/21 10/06/21 ALPRAZolam [Xanax] 0.25 mg PO DAILY PRN 09/06/21 10/06/21 Brimonidine Tartrate/Timolol 1 drop BOTH EYES BID 09/06/21 10/06/21 [Combigan 0.2%-0.5% Eye Drops] Latanoprost/Pf [Latanoprost 0.005% 1 drop BOTH EYES HS 09/06/21 10/06/21 Eye Drop] Nitroglycerin Sl Tabs [Nitrostat] 0.4 mg SL Q5M PRN 09/06/21 10/06/21 Previous Rx's Medication Instructions Recorded Isosorbide Mononitrate ER [Imdur] 30 mg PO DAILY #30 tab 04/19/21 Aspirin 81 mg PO DAILY tab 07/28/21 amLODIPine [Norvasc] 2.5 mg PO DAILY #30 tab 09/08/21 Allergies Allergy/AdvReac Type Severity Reaction Status Date / Time amoxicillin [From Augmentin] Allergy Rash/Hives Verified 10/06/21 20:28 clavulanic acid Allergy Rash/Hives Verified 10/06/21 20:28 [From Augmentin] Review of Systems ROS Statement: Those systems with pertinent positive or pertinent negative responses have been documented in the HPI. ROS Other: All systems not noted in ROS Statement are negative. Past Medical History Past Medical History: Coronary Artery Disease (CAD), Cancer, Diabetes Mellitus, GERD/Reflux, Hypertension, Osteoarthritis (OA) Additional Past Medical History / Comment(s): NIDDM type II, 1999 LEUKEMIA (CLL- remission), sinus problems, seasonal allergies, tinnitis bilaterally, OA hands, R wrist carpal tunnel, past fx with L elbow, R rotator cuff tendon problems, L rotator cuff tear, left knee pain History of Any Multi-Drug Resistant Organisms: None Reported Past Surgical History: Heart Catheterization, Orthopedic Surgery Additional Past Surgical History / Comment(s): LEFT HAND thumb tendon repair. Past Anesthesia/Blood Transfusion Reactions: No Reported Reaction Past Psychological History: No Psychological Hx Reported Smoking Status: Never smoker Past Alcohol Use History: None Reported Past Drug Use History: None Reported - Past Family History Father Family Medical History: CVA/TIA Additional Family Medical History / Comment(s): Father at the age of 85yrs. Mother Family Medical History: Diabetes Mellitus Additional Family Medical History / Comment(s): Mother at the age of 90yrs. General Exam Limitations: no limitations General appearance: alert, in no apparent distress, other (This is a well- developed, well-nourished adult male in no acute distress.) Eye exam: Present: normal appearance, PERRL, EOMI. Absent: scleral icterus, conjunctival injection, periorbital swelling ENT exam: Present: normal exam, normal oropharynx, mucous membranes moist Respiratory exam: Present: normal lung sounds bilaterally. Absent: respiratory distress, wheezes, rales, rhonchi, stridor Cardiovascular Exam: Present: regular rate, normal rhythm, normal heart sounds. Absent: systolic murmur, diastolic murmur, rubs, gallop, clicks GI/Abdominal exam: Present: soft, tenderness (Mild generalized), normal bowel sounds. Absent: distended, guarding, rebound, rigid Neurological exam: Present: alert, oriented X3, CN II-XII intact Psychiatric exam: Present: normal affect, normal mood Skin exam: Present: warm, dry, intact, normal color. Absent: rash Course Vital Signs 10/06/21 10/06/21 18:28 22:26 Temperature 98.2 F Pulse Rate 73 48 L Respiratory 18 16 Rate Blood Pressure 168/78 171/76 O2 Sat by Pulse 98 100 Oximetry EKG Findings - EKG Comments: EKG Findings:: EKG obtained at 1820 shows sinus bradycardia at a ventricular rate of 59, OK interval 166, QR catholic 90, QT 414, QTC 409. No evidence of ST elevation or depression. Medical Decision Making - Medical Decision Making 76 year-old male patient with history of CLL and coronary artery disease presents for evaluation of chest pain and midepigastric abdominal pain that started a couple of hours prior to arrival. Physical exam was unremarkable. Labs reviewed and shows elevated WBC count, which is consistent for him. Trop is normal. EKG shows no new changes. He will be admitted for rule out ACS with eval uation by cardiology. He is agreeable to this plan and relieved at the admission. My attending is Dr. Kelley. - Lab Data Result diagrams: 10/06/21 18:56 10/06/21 18:56 Lab Results 12/30/21 12/30/21 12/30/21 Range/Units 18:56 18:56 18:56 WBC 23.0 H (3.8-10.6) k/uL RBC 4.26 L (4.30-5.90) m/uL Hgb 13.1 (13.0-17.5) gm/dL Hct 39.1 (39.0-53.0) % MCV 91.8 (80.0-100.0) fL MCH 30.9 (25.0-35.0) pg MCHC 33.6 (31.0-37.0) g/dL RDW 14.1 (11.5-15.5) % Plt Count 102 L (150-450) k/uL MPV 8.1 Neutrophils % 18 % Lymphocytes % 75 % Monocytes % 2 % Eosinophils % 1 % Basophils % 1 % Neutrophils # 4.2 (1.3-7.7) k/uL Lymphocytes # 17.2 H (1.0-4.8) k/uL Monocytes # 0.4 (0-1.0) k/uL Eosinophils # 0.1 (0-0.7) k/uL Basophils # 0.1 (0-0.2) k/uL Manual Slide Review Performed PT 11.5 (9.0-12.0) sec INR 1.1 (<1.2) APTT 22.9 (22.0-30.0) sec Sodium 133 L (137-145) mmol/L Potassium 4.0 (3.5-5.1) mmol/L Chloride 101 (98-107) mmol/L Carbon Dioxide 23 (22-30) mmol/L Anion Gap 9 mmol/L BUN 15 (9-20) mg/dL Creatinine 0.76 (0.66-1.25) mg/dL Est GFR (CKD-EPI)AfAm >90 (>60 ml/min/1.73 sqM) Est GFR (CKD-EPI)NonAf >90 (>60 ml/min/1.73 sqM) Glucose 233 H (74-99) mg/dL Calcium 9.0 (8.4-10.2) mg/dL Magnesium 1.6 (1.6-2.3) mg/dL Total Bilirubin 1.2 (0.2-1.3) mg/dL AST 26 (17-59) U/L ALT 19 (4-49) U/L Alkaline Phosphatase 100 (38-126) U/L Troponin I (0.000-0.034) ng/mL Total Protein 6.4 (6.3-8.2) g/dL Albumin 4.0 (3.5-5.0) g/dL Lipase 44 (23-300) U/L 10/06/ Range/Units 18:56 WBC (3.8-10.6) k/uL RBC (4.30-5.90) m/uL Hgb (13.0-17.5) gm/dL Hct (39.0-53.0) % MCV (80.0-100.0) fL MCH (25.0-35.0) pg MCHC (31.0-37.0) g/dL RDW (11.5-15.5) % Plt Count (150-450) k/uL MPV Neutrophils % % Lymphocytes % % Monocytes % % Eosinophils % % Basophils % % Neutrophils # (1.3-7.7) k/uL Lymphocytes # (1.0-4.8) k/uL Monocytes # (0-1.0) k/uL Eosinophils # (0-0.7) k/uL Basophils # (0-0.2) k/uL Manual Slide Review PT (9.0-12.0) sec INR (<1.2) APTT (22.0-30.0) sec Sodium (137-145) mmol/L Potassium (3.5-5.1) mmol/L Chloride (98-107) mmol/L Carbon Dioxide (22-30) mmol/L Anion Gap mmol/L BUN (9-20) mg/dL Creatinine (0.66-1.25) mg/dL Est GFR (CKD-EPI)AfAm (>60 ml/min/1.73 sqM) Est GFR (CKD-EPI)NonAf (>60 ml/min/1.73 sqM) Glucose (74-99) mg/dL Calcium (8.4-10.2) mg/dL Magnesium (1.6-2.3) mg/dL Total Bilirubin (0.2-1.3) mg/dL AST (17-59) U/L ALT (4-49) U/L Alkaline Phosphatase (38-126) U/L Troponin I <0.012 (0.000-0.034) ng/mL Total Protein (6.3-8.2) g/dL Albumin (3.5-5.0) g/dL Lipase (23-300) U/L - Radiology Data Radiology results: report reviewed, image reviewed Disposition Clinical Impression: Chest pain Disposition: ADMITTED IP TO THIS [facility] Condition: Serious Decision to Admit Reason: Admit from EC Decision Date: 10/06/21 Decision Time: 21:05
[2021-10-06 19:16] LABS: ALT 19 U/L (4-49); AST 26 U/L (17-59); African American GFR (CKD) >90 (>60 ml/min/1.73 sqM); Alkaline Phosphatase 100 U/L (38-126); Anion Gap 9 mmol/L; Blood Urea Nitrogen 15 mg/dL (9-20); Carbon Dioxide 23 mmol/L (22-30); Chloride 101 mmol/L (98-107); Glucose 233 mg/dL (74-99); Lipase 44 U/L (23-300); Magnesium 1.6 mg/dL (1.6-2.3); Non-African American GFR(CKD) >90 (>60 ml/min/1.73 sqM); Sodium 133 mmol/L (137-145); Total Bilirubin 1.2 mg/dL (0.2-1.3); Total Protein 6.4 g/dL (6.3-8.2)
[2021-10-06 19:17] LABS: INR 1.1 (<1.2); Partial Thromboplastin Time 22.9 sec (22.0-30.0); Prothrombin Time 11.5 sec (9.0-12.0)
[2021-10-06 19:26] LABS: Basophils # (A) 0.1 k/uL (0-0.2); Basophils % (A) 1 %; Eosinophils # (A) 0.1 k/uL (0-0.7); Eosinophils % (A) 1 %; HCT 39.1 % (39.0-53.0); HGB 13.1 gm/dL (13.0-17.5); Lymphocytes % (A) 75 %; MCH 30.9 pg (25.0-35.0); MCHC 33.6 g/dL (31.0-37.0); MCV 91.8 fL (80.0-100.0); Mean Platelet Volume 8.1; Monocytes # (A) 0.4 k/uL (0-1.0); Monocytes % (A) 2 %; Neutrophils # (A) 4.2 k/uL (1.3-7.7); Neutrophils % (A) 18 %; Platelet Count 102 k/uL (150-450); RBC 4.26 m/uL (4.30-5.90); RDW 14.1 % (11.5-15.5)
[2021-10-06 19:27] LABS: Lymphocytes # (A) 17.2 k/uL (1.0-4.8)
--- NOTE | 2021-10-06 19:53 | XR ---
EXAMINATION TYPE: XR chest 2V DATE OF EXAM: 10/06/2021 COMPARISON: 09/06/2021 HISTORY: 76 years Male. STUDY INDICATION GIVEN: Chest Pain . TECHNIQUE: Frontal and lateral chest radiographs. IMPRESSION: No focal airspace disease, pneumothorax or pleural effusion. Chronic interstitial opacities with no significant change. The cardiomediastinal silhouette is normal in appearance. No acute osseous abnormalities seen. Bilateral acromioclavicular joint osteoarthrosis worsened in the interval greater on the right.
[2021-10-06] MEDS ORDERED: ONDANSETRON 4 MG/2 ML VIAL IVP PRN (21:01)
[2021-10-06] MEDS ORDERED: NALOXONE 0.4 MG/ML 1 ML VIAL IV PRN (21:01)
[2021-10-06] MEDS: MORPHINE SULFATE 4 MG/ML SYRINGE IV PRN (22:34)
[2021-10-07] MEDS: MORPHINE SULFATE 4 MG/ML SYRINGE IV PRN ×2 (03:18→08:04)
[2021-10-07 08:03] LABS: Glucose,Whole Blood 202 mg/dL (75-99)
[2021-10-07] MEDS: ASPIRIN 325 MG TAB PO SCH (09:46)
--- NOTE | 2021-10-07 11:51 | ECHOF ---
Referral Reason:chest pain MEASUREMENTS -------- HEIGHT: 182.9 cm WEIGHT: 95.3 kg BP: 177/84 IVSd: 1.7 cm (0.6 - 1.1) LVIDd: 3.7 cm (3.9 - 5.3) LVPWd: 1.6 cm (0.6 - 1.1) EDV(Teich): 57 ml IVSs: 2.3 cm LVIDs: 2.1 cm LVPWs: 2.0 cm %IVS Thck: 34 % ESV(Teich): 15 ml EF(Teich): 73 % %FS: 42 % SV(Teich): 42 ml FINDINGS -------- Sinus rhythm. This was a technically difficult study with suboptimal apical views. The left ventricular size is normal. There is moderate concentric left ventricular hypertrophy. O verall left ventricular systolic function is normal with, an EF between 55 - 60 %. Lumason used There is no pericardial effusion. CONCLUSIONS -------- 1. The left ventricular size is normal. 2. There is moderate concentric left ventricular hypertrophy. 3. Overall left ventricular systolic function is normal with, an EF between 55 - 60 %. CORRECTIONAL PROGRAM OFFICER: Kortney Wagner, BOB
[2021-10-07] MEDS ORDERED: ALPRAZolam 0.25 MG TAB PO PRN (12:21)
[2021-10-07] MEDS ORDERED: HYDROcodone/APAP 5-325MG 1 EACH TAB PO PRN (12:21)
[2021-10-07] MEDS ORDERED: amLODIPine 2.5 MG TAB PO SCH (12:30)
[2021-10-07 12:55] LABS: Glucose,Whole Blood 275 mg/dL (75-99)
[2021-10-07] MEDS: PANTOPRAZOLE 40 MG TABLET PO SCH (13:01)
[2021-10-07] MEDS: ISOSORBIDE MONONITRATE ER 30 MG TAB.ER.24H PO SCH (13:01)
[2021-10-07] MEDS: INSULN ASP PRT/INSULIN ASPART 100 UNIT/ML 10 ML VIAL SQ SCH (13:01)
[2021-10-07] MEDS: lisinopriL 20 MG TAB PO SCH (13:02)
[2021-10-07] MEDS ORDERED: amLODIPine 2.5 MG TAB PO STA (13:43)
--- NOTE | 2021-10-07 13:43 | P.CRDCN ---
History of Present Illness Consult date: 10/07/21 History of present illness: Patient is a 76-year-old male with a known history of intermittent nonobstructive coronary artery disease, diabetes, GERD, hypertension, Leukemia- CLL remission, osteoarthritis, who admitted with chest pain. Patient was experiencing chest pain that lasted a couple hours and reported having mild shortness of breath with it. He denied radiating to the back, arms, or jaw. Patient states he has been under a significant amount of stress due to his son who having advanced stages of lung cancer. Patient was giving nitro by EMS, and states this did improve his symptoms. He denies today chest pain, palpitations, dizziness, syncope, or edema. Patient's troponins were negative 3. he underwent a heart catheterization in July of this year which revealed intermittent nonobstructive coronary artery disease of the RCA with 40-50% block age. Blood pressure is elevated today at 164/76, heart rate 70, 100% on 2 L nasal cannula, afebrile. DIAGNOSTICS Hemoglobin 13.1 WBC 23, platelet 102, sodium 133, potassium 4, BUN 15, creatinine 0.76, magnesium 1.6, AST 26, ALt 19, troponins negative 3 Chest x-ray negative for acute cardiopulmonary process Echocardiogram pending Review of Systems REVIEW OF SYSTEMS At the time of my exam: CONSTITUTIONAL: Denies fever or chills. EYES: Negative for vision changes ENT: Negative for hearing loss CARDIOVASCULAR: Denies chest pain, shortness of breath, diaphoresis, orthopnea, PND or palpitations. VASCULAR: Denies edema RESPIRATORY: Denies cough. GASTROINTESTINAL: Denies abdominal pain, diarrhea, constipation, nausea or vomiting. MUSCULOSKELETAL: Denies myalgias. NEUROLOGIC: Denies numbness, tingling, headache or weakness. ENDOCRINE: Denies fatigue, weight change, polydipsia or polyurina. GENITOURINARY: Denies burning, hematuria or urgency with micturation. HEMATOLOGIC: Denies history of anemia or bleeding. DERMATOLOGY: Denies rash or skin sores PSYCH: Negative for depression or hallucinations. Past Medical History Past Medical History: Coronary Artery Disease (CAD), Cancer, Diabetes Mellitus, GERD/Reflux, Hypertension, Osteoarthritis (OA) Additional Past Medical History / Comment(s): NIDDM type II, 1999 LEUKEMIA (CLL- remission), sinus problems, seasonal allergies, tinnitis bilaterally, OA hands, R wrist carpal tunnel, past fx with L elbow, R rotator cuff tendon problems, L rotator cuff tear, left knee pain History of Any Multi-Drug Resistant Organisms: None Reported Past Surgical History: Heart Catheterization, Orthopedic Surgery Additional Past Surgical History / Comment(s): LEFT HAND thumb tendon repair. Past Anesthesia/Blood Transfusion Reactions: No Reported Reaction Past Psychological History: No Psychological Hx Reported Additional Psychological History / Comment(s): Pt resides with his spouse. He is independent. He ambulates with a cane. He drives. Smoking Status: Never smoker Past Alcohol Use History: None Reported Past Drug Use History: None Reported Additional Drug Use History / Comment(s): Occasional marijuana - Past Family History Father Family Medical History: CVA/TIA Additional Family Medical History / Comment(s): Father at the age of 85yrs. Mother Family Medical History: Diabetes Mellitus Additional Family Medical History / Comment(s): Mother at the age of 90yrs. Medications and Allergies Home Medications Medication Instructions Recorded Confirmed Type Montelukast Sodium [Singulair] 10 mg PO DAILY 05/25/17 10/06/21 History Insulin NPH Hum/Reg Insulin Hm 17 units SQ AC-BRKFST 03/05/20 10/06/21 History [Relion Novolin 70-30 Flexpen] Fluticasone Nasal [place] [Flonase 1 spr EA NOSTRIL DAILY 01/24/21 10/06/21 History Nasal [place]] HYDROcodone/APAP 5-325MG [[place] 1 tab PO Q6HR PRN 01/24/21 10/06/21 History 5-325] Ketorolac 0.5% Ophth Soln [Acular 1 drop BOTH EYES BID 01/24/21 10/06/21 History 0.5%] Atorvastatin [Lipitor] 80 mg PO HS 03/08/21 10/06/21 History Baclofen [Lioresal] 10 mg PO DAILY 04/18/21 10/06/21 History SILVER sulfADIAZINE CREAM 1 applic TOPICAL BID 04/18/21 10/06/21 History [Silvadene Cream] Isosorbide Mononitrate ER [Imdur] 30 mg PO DAILY #30 tab 04/19/21 10/06/21 Rx Gabapentin 300 mg PO HS 07/27/21 10/06/21 History Omeprazole 40 mg PO DAILY 07/27/21 10/06/21 History lisinopriL [Zestril] 20 mg PO DAILY 07/27/21 10/06/21 History Aspirin 81 mg PO DAILY tab 07/28/21 10/06/21 Rx ALPRAZolam [Xanax] 0.25 mg PO DAILY PRN 09/06/21 10/06/21 History Brimonidine Tartrate/Timolol 1 drop BOTH EYES BID 09/06/21 10/06/21 History [Combigan 0.2%-0.5% Eye Drops] Latanoprost/Pf [Latanoprost 0.005% 1 drop BOTH EYES HS 09/06/21 10/06/21 History Eye Drop] Nitroglycerin Sl Tabs [Nitrostat] 0.4 mg SL Q5M PRN 09/06/21 10/06/21 History amLODIPine [Norvasc] 2.5 mg PO DAILY #30 tab 09/08/21 10/06/21 Rx Allergies Allergy/AdvReac Type Severity Reaction Status Date / Time amoxicillin [From Augmentin] Allergy Rash/Hives Verified 10/06/21 20:28 clavulanic acid Allergy Rash/Hives Verified 10/06/21 20:28 [From Augmentin] Physical Exam Vitals: Vital Signs Temp Pulse Pulse Resp BP BP Pulse Ox 10/07/21 12:51 97.1 F L 70 20 164/76 100 10/07/21 11:02 59 L 18 176/84 98 10/07/21 09:41 58 L 18 177/84 99 10/07/21 07:55 57 L 18 193/83 100 10/07/21 07:00 98.1 F 56 L 16 193/83 95 10/07/21 06:28 56 L 18 174/82 98 10/07/21 03:17 58 L 16 181/88 98 10/06/21 22:26 48 L 16 171/76 100 10/06/21 18:28 98.2 F 73 18 168/78 98 Intake and Output 10/06/21 10/07/21 10/07/21 22:59 06:59 14:59 Intake Total 300 Balance 300 Intake: Oral 300 Other: Weight 95.254 kg PHYSICAL EXAMINATION VITAL SIGNS: Reviewed CONSTITUTIONAL: No apparent distress. HEENT: Head is normocephalic. Pupils are equal, round. Sclerae anicteric. Mucous membranes of the mouth are moist. NECK: No JVD. No carotid bruit. RESPIRATORY: Lungs are clear to auscultation. No chest wall tenderness is noted on palpation or with deep breathing. CARDIAC: Regular rate and rhythm. S1, S2 heard. No murmurs, gallops or rub. ABDOMEN: Soft, nontender. EXTREMITIES: 2+ peripheral pulses, no lower extremity edema and no calf te nderness. NEUROLOGIC EXAMINATION: Patient is awake, alert and oriented x3. INTEGUMENTARY: Warm, absent for rashes or sores PSYCH: Negative for depression or hallucinations, mood appropriate. Results 10/06/21 18:56 10/06/21 18:56 Cardiac Enzymes 10/06/21 10/06/21 10/06/21 Range/Units 18:56 18:56 22:05 AST 26 (17-59) U/L Troponin I <0.012 0.021 (0.000-0.034) ng/mL 10/07/21 Range/Units 02:43 AST (17-59) U/L Troponin I 0.016 (0.000-0.034) ng/mL Coagulation 10/06/21 Range/Units 18:56 PT 11.5 (9.0-12.0) sec APTT 22.9 (22.0-30.0) sec CBC 10/06/21 Range/Units 18:56 WBC 23.0 H (3.8-10.6) k/uL RBC 4.26 L (4.30-5.90) m/uL Hgb 13.1 (13.0-17.5) gm/dL Hct 39.1 (39.0-53.0) % Plt Count 102 L (150-450) k/uL Comprehensive Metabolic Panel 10/06/21 Range/Units 18:56 Sodium 133 L (137-145) mmol/L Potassium 4.0 (3.5-5.1) mmol/L Chloride 101 (98-107) mmol/L Carbon Dioxide 23 (22-30) mmol/L BUN 15 (9-20) mg/dL Creatinine 0.76 (0.66-1.25) mg/dL Glucose 233 H (74-99) mg/dL Calcium 9.0 (8.4-10.2) mg/dL AST 26 (17-59) U/L ALT 19 (4-49) U/L Alkaline Phosphatase 100 (38-126) U/L Total Protein 6.4 (6.3-8.2) g/dL Albumin 4.0 (3.5-5.0) g/dL Current Medications Generic Name Dose Route Start Last Admin Trade Name Freq PRN Reason Stop Dose Admin Hydrocodone Bitart/Acetaminophen 1 each 10/07/21 12:21 Hydrocodone/Apap 5-325mg 1 Each Tab PO Q6HR PRN Moderate Pain Alprazolam 0.25 mg 10/07/21 12:21 Alprazolam 0.25 Mg Tab PO DAILY PRN Anxiety Amlodipine Besylate 2.5 mg 10/07/21 12:30 10/07/21 13:01 Amlodipine 2.5 Mg Tab PO 2.5 mg DAILY [facility] Administration Aspirin 325 mg 10/07/21 09:00 10/07/21 09:46 Aspirin 325 Mg Tab PO 325 mg DAILY [facility] Administration Atorvastatin Calcium 80 mg 10/07/21 21:00 Atorvastatin 80 Mg Tab PO HS [facility] Baclofen 10 mg 10/08/21 09:00 Baclofen 10 Mg Tab PO DAILY [facility] Brimonidine Tartrate 1 drops 10/07/21 21:00 Brimonidine Tartrate 0.2% Drops 5 Ml Btl BOTH EYES BID [facility] Fluticasone Propionate 1 spray 10/08/21 09:00 Fluticasone 50mcg/[place] Nasal 16gm EA NOSTRIL DAILY [facility] Gabapentin 300 mg 10/07/21 21:00 Gabapentin 300 Mg Cap PO HS [facility] Insulin Aspart 17 unit 10/07/21 12:30 10/07/21 13:01 Insuln Asp Prt/Insulin Aspart 100 Unit/Ml 10 Ml Vial SQ 17 unit AC-BRKFST [facility] Administration Isosorbide Mononitrate 30 mg 10/07/21 12:30 10/07/21 13:01 Isosorbide Mononitrate Er 30 Mg Tab.Er.24h PO 30 mg DAILY [facility] Administration Ketorolac Tromethamine 1 drops 10/07/21 21:00 Ketorolac 0.5% Ophth Drops 5 Ml Btl BOTH EYES BID [facility] Latanoprost 1 drops 10/07/21 21:00 Latanoprost 0.005% Ophth Drops 2.5 Ml Btl BOTH EYES HS [facility] Lisinopril 20 mg 10/07/21 12:30 10/07/21 13:02 Lisinopril 20 Mg Tab PO 20 mg DAILY [facility] Administration Montelukast Sodium 10 mg 10/08/21 09:00 Montelukast 10 Mg Tab PO DAILY [facility] Morphine Sulfate 4 mg 10/06/21 21:01 10/07/21 08:04 Morphine Sulfate 4 Mg/Ml Syringe IV 4 mg Q4HR PRN Administration Severe Pain Naloxone HCl 0.2 mg 10/06/21 21:01 Naloxone 0.4 Mg/Ml 1 Ml Vial IV Q2M PRN Opioid Reversal Ondansetron HCl 4 mg 10/06/21 21:01 Ondansetron 4 Mg/2 Ml Vial IVP Q8HR PRN Nausea And Vomiting Pantoprazole Sodium 40 mg 10/07/21 12:30 10/07/21 13:01 Pantoprazole 40 Mg Tablet PO 40 mg DAILY [facility] Administration Timolol Maleate 1 drops 10/07/21 21:00 Timolol 0.5% Ophth Drops 5 Ml Btl BOTH EYES BID [facility] Intake and Output 10/06/21 10/07/21 10/07/21 22:59 06:59 14:59 Intake Total 300 Balance 300 Intake: Oral 300 Other: Weight 95.254 kg 10/06/21 18:56 10/06/21 18:56 Assessment and Plan Assessment: Atypical chest pain, possibly related to increase in stress Negative troponins Intermittent nonobstructive coronary artery disease Hypertension Plan: Echocardiogram pending Increase Norvasc to 10 mg daily Increase activity as tolerated Wean patient off oxygen as tolerated to room air Possible discharge tomorrow, pending symptoms The above impression and plan of care have been discussed and directed by the signing physician. Shelby Rincon, nurse practitioner, acting as scribe for signing physician.
[2021-10-07 18:04] LABS: Glucose,Whole Blood 231 mg/dL (75-99)
[2021-10-07 20:48] LABS: Glucose,Whole Blood 255 mg/dL (75-99)
[2021-10-07] MEDS ORDERED: GABAPENTIN 300 MG CAP PO SCH (21:00)
[2021-10-07] MEDS ORDERED: ATORVASTATIN 80 MG TAB PO SCH (21:00)
[2021-10-07] MEDS ORDERED: LATANOPROST 0.005% OPHTH DROPS 2.5 ML BTL BOTH EYES SCH (21:00)
--- NOTE | 2021-10-07 21:09 | P.HPIM ---
History of Present Illness H&P Date: 10/07/21 Chief Complaint: Chest Pain Patient is a 76-year-old male with a known history of hypertension, diabetes type 2, history of CLL and chronic elevated WBC count, nonobstructive coronary disease with recent history of cardiac catheterization, osteoarthritis and previous admission with chest pain came to ER with complaints of chest pain started about 2 hours prior to admission associate with mild shortness of breath. Mainly left retrosternal region. No radiation of the pain to the arm to the back of the jaw. Patient was given nitroglycerin by EMS which seemed to improve his symptoms. Apparently patient's son has advanced cancer and due to that patient is in extreme stressful situation. Denies any complaints of nausea or vomiting or abdominal pain. Denies any dysuria or hematuria. No headache or dizziness or lightheadedness. Laboratory data showed WBC 23.0 hemoglobin 13.1 and platelets 102 Sodium 133 potassium 4.0 chloride 101 bicarb is 23 BUN 15 and creatinine 0.76 and blood sugar is 233 on admission Troponin x3 - liver enzymes are not elevated lipase level is 44 COVID-19 PCR not detected. Review of Systems Constitutional: Patient denies any fever or chills . No generalized weakness or weight loss. Abdomen: Patient denied nausea vomiting and diarrhea and abdominal pain. Cardiovascular: Patient denies any chest pain or short of breath no palpitations. Respiratory: patient denied any cough or sputum production. No shortness of breath Neurologic: Patient denied any numbness or tingling headache. Musculoskeletal: Patient denies any complaints of joint swelling or deformity. Skin: Negative Psychiatric: Negative Endocrine: No heat or cold intolerance. No recent weight gain. Genitourinary: No dysuria or hematuria. All other 14 point ROS negative except the above Past Medical History Past Medical History: Coronary Artery Disease (CAD), Cancer, Diabetes Mellitus, GERD/Reflux, Hypertension, Osteoarthritis (OA) Additional Past Medical History / Comment(s): NIDDM type II, 1999 LEUKEMIA (CLL- remission), sinus problems, seasonal allergies, tinnitis bilaterally, OA hands, R wrist carpal tunnel, past fx with L elbow, R rotator cuff tendon problems, L rotator cuff tear, left knee pain History of Any Multi-Drug Resistant Organisms: None Reported Past Surgical History: Heart Catheterization, Orthopedic Surgery Additional Past Surgical History / Comment(s): LEFT HAND thumb tendon repair. Past Anesthesia/Blood Transfusion Reactions: No Reported Reaction Past Psychological History: No Psychological Hx Reported Smoking Status: Never smoker Past Alcohol Use History: None Reported Past Drug Use History: None Reported - Past Family History Father Family Medical History: CVA/TIA Additional Family Medical History / Comment(s): Father at the age of 85yrs. Mother Family Medical History: Diabetes Mellitus Additional Family Medical History / Comment(s): Mother at the age of 90yrs. Medications and Allergies Home Medications Medication Instructions Recorded Confirmed Type Montelukast Sodium [Singulair] 10 mg PO DAILY 05/25/17 10/06/21 History Insulin NPH Hum/Reg Insulin Hm 17 units SQ AC-BRKFST 03/05/20 10/06/21 History [Relion Novolin 70-30 Flexpen] Fluticasone Nasal [place] [Flonase 1 spr EA NOSTRIL DAILY 01/24/21 10/06/21 History Nasal [place]] HYDROcodone/APAP 5-325MG [[place] 1 tab PO Q6HR PRN 01/24/21 10/06/21 History 5-325] Ketorolac 0.5% Ophth Soln [Acular 1 drop BOTH EYES BID 01/24/21 10/06/21 History 0.5%] Atorvastatin [Lipitor] 80 mg PO HS 03/08/21 10/06/21 History Baclofen [Lioresal] 10 mg PO DAILY 04/18/21 10/06/21 History SILVER sulfADIAZINE CREAM 1 applic TOPICAL BID 04/18/21 10/06/21 History [Silvadene Cream] Isosorbide Mononitrate ER [Imdur] 30 mg PO DAILY #30 tab 04/19/21 10/06/21 Rx Gabapentin 300 mg PO HS 07/27/21 10/06/21 History Omeprazole 40 mg PO DAILY 07/27/21 10/06/21 History lisinopriL [Zestril] 20 mg PO DAILY 07/27/21 10/06/21 History Aspirin 81 mg PO DAILY tab 07/28/21 10/06/21 Rx ALPRAZolam [Xanax] 0.25 mg PO DAILY PRN 09/06/21 10/06/21 History Brimonidine Tartrate/Timolol 1 drop BOTH EYES BID 09/06/21 10/06/21 History [Combigan 0.2%-0.5% Eye Drops] Latanoprost/Pf [Latanoprost 0.005% 1 drop BOTH EYES HS 09/06/21 10/06/21 History Eye Drop] Nitroglycerin Sl Tabs [Nitrostat] 0.4 mg SL Q5M PRN 09/06/21 10/06/21 History amLODIPine [Norvasc] 2.5 mg PO DAILY #30 tab 09/08/21 10/06/21 Rx Allergies Allergy/AdvReac Type Severity Reaction Status Date / Time amoxicillin [From Augmentin] Allergy Rash/Hives Verified 10/06/21 20:28 clavulanic acid Allergy Rash/Hives Verified 10/06/21 20:28 [From Augmentin] Physical Exam Vitals: Vital Signs Temp Pulse Pulse Resp BP BP Pulse Ox 10/07/21 11:02 59 L 18 176/84 98 10/07/21 09:41 58 L 18 177/84 99 10/07/21 07:55 57 L 18 193/83 100 10/07/21 07:00 98.1 F 56 L 16 193/83 95 10/07/21 06:28 56 L 18 174/82 98 10/07/21 03:17 58 L 16 181/88 98 10/06/21 22:26 48 L 16 171/76 100 10/06/21 18:28 98.2 F 73 18 168/78 98 Intake and Output 10/06/21 10/07/21 10/07/21 22:59 06:59 14:59 Other: Weight 95.254 kg PHYSICAL EXAMINATION: Patient is lying in the bed comfortably, no acute distress, awake alert and oriented.. HEENT: Normocephalic. Neck is supple. Pupils reactive. Nostrils clear. Oral cavity is moist. Neck reveals no JVD, carotid bruits, or thyromegaly. CHEST EXAMINATION: Trachea is central. Symmetrical expansion. Lung xiong clear to auscultation and percussion. CARDIAC: Normal S1, S2 with no gallops. No murmurs ABDOMEN: Soft. Bowel sounds normal. No organomegaly. No abdominal bruits. Extremities: reveal no edema. No clubbing or cyanosis Neurologically awake, alert, oriented x3 with well-coordinated movements. No focal deficits noted Skin: No rash or skin lesions. Psychiatric: Cooperative. Nonsuicidal Musculoskeletal: No joint swelling or deformity. Normal range of motion. Results CBC & Chem 7: 10/06/21 18:56 10/06/21 18:56 Labs: Abnormal Lab Results - Last 24 Hours (Table) 10/06/21 10/06/21 10/07/21 Range/Units 18:56 18:56 08:02 WBC 23.0 H (3.8-10.6) k/uL RBC 4.26 L (4.30-5.90) m/uL Plt Count 102 L (150-450) k/uL Lymphocytes # 17.2 H (1.0-4.8) k/uL Sodium 133 L (137-145) mmol/L Glucose 233 H (74-99) mg/dL POC Glucose (mg/dL) 202 H (75-99) mg/dL Thrombosis Risk Factor Assmnt - DVT/VTE Prophylaxis DVT/VTE Prophylaxis: Pharmacologic Prophylaxis ordered Assessment and Plan Assessment: Atypical chest pain likely due to stressful situation Recent admission with chest pain status post cardiac catheterization showed intermediate coronary artery disease Hypertension Diabetes type 2 uncontrolled with hyperglycemia on admission Osteoarthritis History of CLL and chronic diarrhea WBC count DVT prophylaxis with heparin subcu Plan: Patient will be continued monitoring. Serial EKG and troponin x2 -. Will be s tarted back on home insulin regimen and insulin sliding scale for better blood sugar control. Continue with home blood pressure medications and Norvasc dose increased as per cardiology recommendations. Continue to follow closely. Time with Patient: Greater than 30
[2021-10-07] MEDS: TIMOLOL 0.5% OPHTH DROPS 5 ML BTL BOTH EYES SCH (21:48)
[2021-10-07] MEDS: BRIMONIDINE TARTRATE 0.2% DROPS 5 ML BTL BOTH EYES SCH (21:48)
[2021-10-07] MEDS: KETOROLAC 0.5% OPHTH DROPS 5 ML BTL BOTH EYES SCH (21:50)
[2021-10-07 23:09] LABS: Basophils # (A) 0.05 X 10*3/uL (0.00-0.10); Basophils % (A) 0.2 %; Eosinophils # (A) 0.15 X 10*3/uL (0.04-0.35); Eosinophils % (A) 0.7 %; HCT 37.7 % (39.6-50.0); HGB 12.7 g/dL (13.0-17.0); Lymphocytes # (A) 15.16 X 10*3/uL (0.90-5.00); Lymphocytes % (A) 74.8 %; MCH 30.7 pg (27.0-32.0); MCHC 33.7 g/dL (32.0-37.0); MCV 91.1 fL (80.0-97.0); Monocytes # (A) 0.67 X 10*3/uL (0.20-1.00); Monocytes % (A) 3.3 %; Neutrophils # (A) 4.22 X 10*3/uL (1.80-7.70); Neutrophils % (A) 20.9 %; Platelet Count 93 X 10*3/uL (140-440); RBC 4.14 X 10*6/uL (4.40-5.60); RDW 13.3 % (11.5-14.5); WBC 20.28 X 10*3/uL (4.50-10.00)
[2021-10-07 23:10] LABS: Microcytosis (M) 2+
[2021-10-08 07:42] VITALS: PULSE 54
[2021-10-08 08:00] LABS: Glucose,Whole Blood 209 mg/dL (75-99)
[2021-10-08] MEDS: INSULN ASP PRT/INSULIN ASPART 100 UNIT/ML 10 ML VIAL SQ SCH (08:09)
[2021-10-08] MEDS: ISOSORBIDE MONONITRATE ER 30 MG TAB.ER.24H PO SCH (08:09)
[2021-10-08] MEDS: ASPIRIN 325 MG TAB PO SCH (08:10)
[2021-10-08] MEDS: PANTOPRAZOLE 40 MG TABLET PO SCH (08:10)
[2021-10-08] MEDS: lisinopriL 20 MG TAB PO SCH (08:10)
[2021-10-08] MEDS: KETOROLAC 0.5% OPHTH DROPS 5 ML BTL BOTH EYES SCH (08:11)
[2021-10-08] MEDS: BRIMONIDINE TARTRATE 0.2% DROPS 5 ML BTL BOTH EYES SCH (08:11)
[2021-10-08] MEDS: TIMOLOL 0.5% OPHTH DROPS 5 ML BTL BOTH EYES SCH (08:17)
[2021-10-08] MEDS ORDERED: BACLOFEN 10 MG TAB PO SCH (09:00)
[2021-10-08] MEDS ORDERED: amLODIPine 10 MG TAB PO SCH (09:00)
[2021-10-08] MEDS ORDERED: MONTELUKAST 10 MG TAB PO SCH (09:00)
[2021-10-08] MEDS ORDERED: FLUTICASONE 50MCG/SPRAY NASAL 16GM EA NOSTRIL SCH (09:00)
[2021-10-08 09:13] LABS: Anion Gap 10.4 mmol/L (10.00-18.00); BUN/Creat Ratio 19.63 Ratio (12.00-20.00); Blood Urea Nitrogen 15.7 mg/dL (9.0-27.0); Carbon Dioxide 24.6 mmol/L (20.0-27.5); Potassium 4.1 mmol/L (3.5-5.5)
[2021-10-08 09:34] LABS: Basophils # (A) 0.05 X 10*3/uL (0.00-0.10); Basophils % (A) 0.2 %; Eosinophils # (A) 0.17 X 10*3/uL (0.04-0.35); Eosinophils % (A) 0.8 %; HCT 35.5 % (39.6-50.0); HGB 12.1 g/dL (13.0-17.0); Lymphocytes # (A) 17.12 X 10*3/uL (0.90-5.00); Lymphocytes % (A) 80.3 %; MCHC 34.1 g/dL (32.0-37.0); Mean Platelet Volume 10.6 fL (9.5-12.2); Monocytes # (A) 0.58 X 10*3/uL (0.20-1.00); Monocytes % (A) 2.7 %; Neutrophils # (A) 3.37 X 10*3/uL (1.80-7.70); Neutrophils % (A) 15.9 %; Platelet Count 84 X 10*3/uL (140-440); RDW 13.5 % (11.5-14.5); WBC 21.32 X 10*3/uL (4.50-10.00)
[2021-10-08 09:47] VITALS: RESP 17
--- NOTE | 2021-10-08 12:01 | P.PN ---
Subjective Progress Note Date: 10/08/21 Patient is a 76-year-old male with a known history of intermittent non- obstructive coronary artery disease, diabetes, GERD, hypertension, Leukemia- CLL remission, osteoarthritis. He was admitted with chest pain. Patient reports his chest pain is much improved since he was brought to the hospital. Chest pain has continue to decrease from yesterday. Chest pain is believed to be induced by patient's increased stress, from the loss of his son. Patient is examined resting comfortably in bed with no signs of acute distress. He denies today palpitations, dizziness, syncope, or edema. His Norvasc was increased to 10mg daily. Blood pressure is better controlled today at 149/74, heart rate 54, respirations 17, 99% on room air, afebrile. Echocardiogram showed a normal LV function with an EF of 55-60%. DIAGNOSTICS Hemoglobin 12.1 WBC 21.32, platelet 84, sodium 137, potassium 4.1, BUN 15.7, creatinine 0.8, troponins negative 3 Objective - Vital Signs Vital signs: Vital Signs Temp 98.4 F 10/08/21 07:00 Pulse 54 L 10/08/21 07:00 Resp 17 10/08/21 08:00 BP 149/74 10/08/21 07:00 Pulse Ox 99 10/08/21 07:00 Intake & Output 10/07/21 10/08/21 10/08/21 18:59 06:59 18:59 Intake Total 518 118 Balance 518 118 Weight 95.254 kg Intake: Oral 518 118 Other: # Voids 2 - Exam PHYSICAL EXAM: VITAL SIGNS: Reviewed. GENERAL: Well-developed in no acute distress. HEENT: Head is normocephalic. Pupils are equal, round. Sclerae anicteric. Mucous membranes of the mouth are moist. NECK: Supple. No JVD or thyromegaly RESPIRATORY: Respirations even and unlabored. Lungs diminished to auscultation bilaterally. CARDIO: Regular rate and rhythm. S1 and S2 heard. No murmur or gallops. EXTREMITIES: Normal range of motion. No clubbing or cyanosis. Peripheral pulses intact. Negative for bilateral lower extremity edema NEURO: Orientated to person, time, mood is appropriate - Labs CBC & Chem 7: 10/08/21 06:26 10/08/21 06:26 Labs: Abnormal Lab Results - Last 24 Hours (Table) 10/07/21 10/07/21 10/07/21 Range/Units 12:53 16:03 18:02 WBC 20.28 H (4.50-10.00) X 10*3/uL RBC 4.14 L (4.40-5.60) X 10*6/uL Hgb 12.7 L (13.0-17.0) g/dL Hct 37.7 L (39.6-50.0) % Plt Count 93 L (140-440) X 10*3/uL Plt Count Comment DECREASED A Absolute Nucleated RBC (0.00-0.00) X 10*3/uL NRBC/100 WBC Diff (0.0-0.0) /100 WBCS Glucose (70-110) mg/dL POC Glucose (mg/dL) 275 H 231 H (75-99) mg/dL 10/07/21 10/08/21 10/08/21 Range/Units 20:47 06:26 06:26 WBC 21.32 H (4.50-10.00) X 10*3/uL RBC 3.90 L (4.40-5.60) X 10*6/uL Hgb 12.1 L (13.0-17.0) g/dL Hct 35.5 L (39.6-50.0) % Plt Count 84 L (140-440) X 10*3/uL Plt Count Comment DECREASED A Absolute Nucleated RBC 0.02 H (0.00-0.00) X 10*3/uL NRBC/100 WBC Diff 0.1 H (0.0-0.0) /100 WBCS Glucose 208 H (70-110) mg/dL POC Glucose (mg/dL) 255 H (75-99) mg/dL 10/08/21 Range/Units 07:58 WBC (4.50-10.00) X 10*3/uL RBC (4.40-5.60) X 10*6/uL Hgb (13.0-17.0) g/dL Hct (39.6-50.0) % Plt Count (140-440) X 10*3/uL Plt Count Comment Absolute Nucleated RBC (0.00-0.00) X 10*3/uL NRBC/100 WBC Diff (0.0-0.0) /100 WBCS Glucose (70-110) mg/dL POC Glucose (mg/dL) 209 H (75-99) mg/dL Assessment and Plan Assessment: Atypical chest pain, believed to be related to increase in stress Negative troponins x3 Intermittent nonobstructive coronary artery disease Hypertension Plan: Continue increased dose of Norvasc 10 mg daily Continue all other cardiac medications Increase activity as tolerated Patient is clear to be discharged from a cardiac standpoint The above impression and plan of care have been discussed and directed by the signing physician. Shelby Rincon, nurse practitioner, acting as scribe for signing physician.
[2021-10-08 12:14] LABS: Glucose,Whole Blood 300 mg/dL (75-99)
[2021-10-08 14:19] VITALS: BP 124/57; TEMP 98.2
[2021-10-08 17:34] LABS: Glucose,Whole Blood 260 mg/dL (75-99)
== END 2021-10-08 18:03 | disposition home or self-care (01) ==
LOC: EC 18:21 → 6NMEDSUR 20:57
PROVIDERS: ADMIT Hospitalist; ATTEND Hospitalist
DX: R07.89 Other chest pain (principal); E11.65 Type 2 diabetes mellitus with hyperglycemia; I25.10 Atherosclerotic heart disease of native coronary artery without angina pectoris; I10 Essential (primary) hypertension; F43.9 Reaction to severe stress, unspecified; R06.02 Shortness of breath; D72.829 Elevated white blood cell count, unspecified; K52.9 Noninfective gastroenteritis and colitis, unspecified; R00.1 Bradycardia, unspecified; J30.2 Other seasonal allergic rhinitis; H93.13 Tinnitus, bilateral; G56.01 Carpal tunnel syndrome, right upper limb; K21.9 Gastro-esophageal reflux disease without esophagitis; M19.042 Primary osteoarthritis, left hand; M19.041 Primary osteoarthritis, right hand; Z20.822 Contact with and (suspected) exposure to COVID-19; Z79.4 Long term (current) use of insulin; Z79.899 Other long term (current) drug therapy; Z79.82 Long term (current) use of aspirin; Z88.0 Allergy status to penicillin; Z88.8 Allergy status to other drugs, medicaments and biological substances; Z85.6 Personal history of leukemia; Z87.39 Personal history of other diseases of the musculoskeletal system and connective tissue; Z98.890 Other specified postprocedural states; Z82.3 Family history of stroke; Z83.3 Family history of diabetes mellitus; Z80.1 Family history of malignant neoplasm of trachea, bronchus and lung
CPT/HCPCS: 96376 ×2; 96374; 96375; 99285; 36415; 93005; 80053; 80048; 83690; 83735; 84484 ×2; 85025 ×3; 85610; 85730; 87635; 71046; G0378 ×3; C8924; J2270 ×3; J2405; Q9950; 93308

== ENCOUNTER 2021-12-12 02:30 | Emergency (ER) | payer MEDICARE ==
[2021-12-12 02:42] VITALS: RESP 18; TEMP 98.3
--- NOTE | 2021-12-12 02:56 | ED ---
Fall HPI - General Chief Complaint: Fall Stated Complaint: Fall Time Seen by Provider: 12/12/21 02:56 Source: patient, EMS, RN notes reviewed, old records reviewed Mode of arrival: EMS Limitations: no limitations - History of Present Illness Initial Comments: This is a 76-year-old male presented with a fall 2 weeks prior to arrival. Patient's back pain is getting progressively worse mildly. Is concerned is related to fall. He also feels weak, but main complaint is pain not being controlled at home. No neurological complaints no loss of bowel or bladder. MD Complaint: fall -: week(s) Fall From: standing When Fall Occurred: # days [employer] (14) Fall Witnessed: no Place Fall Occurred: home Loss of Consciousness: none Prolonged Down Time?: no Symptoms Prior to Fall: none Location: back Severity: mild Severity scale (1-10): 3 Context: tripped/slipped Associated Symptoms: denies - Related Data Home Medications Medication Instructions Recorded Confirmed Montelukast Sodium [Singulair] 10 mg PO DAILY 05/25/17 10/26/21 Insulin NPH Hum/Reg Insulin Hm 22 units SQ AC-BRKFST 03/05/20 10/26/21 [Relion Novolin 70-30 Flexpen] Fluticasone Nasal [place] [Flonase 1 spr EA NOSTRIL DAILY 01/24/21 10/26/21 Nasal [place]] HYDROcodone/APAP 5-325MG [[place] 1 tab PO Q6HR PRN 01/24/21 10/26/21 5-325] Ketorolac 0.5% Ophth Soln [Acular 1 drop BOTH EYES BID 01/24/21 10/26/21 0.5%] Atorvastatin [Lipitor] 80 mg PO HS 03/08/21 10/26/21 Baclofen [Lioresal] 10 mg PO DAILY 04/18/21 10/26/21 SILVER sulfADIAZINE CREAM 1 applic TOPICAL BID 04/18/21 10/26/21 [Silvadene Cream] Gabapentin 300 mg PO HS 07/27/21 10/26/21 Omeprazole 40 mg PO DAILY 07/27/21 10/26/21 lisinopriL [Zestril] 20 mg PO DAILY 07/27/21 10/26/21 ALPRAZolam [Xanax] 0.25 mg PO DAILY PRN 09/06/21 10/26/21 Brimonidine Tartrate/Timolol 1 drop BOTH EYES BID 09/06/21 10/26/21 [Combigan 0.2%-0.5% Eye Drops] Latanoprost/Pf [Latanoprost 0.005% 1 drop BOTH EYES HS 09/06/21 10/26/21 Eye Drop] Nitroglycerin Sl Tabs [Nitrostat] 0.4 mg SL Q5M PRN 09/06/21 10/26/21 Previous Rx's Medication Instructions Recorded Isosorbide Mononitrate ER [Imdur] 30 mg PO DAILY #30 tab 04/19/21 Aspirin 81 mg PO DAILY tab 07/28/21 amLODIPine [Norvasc] 10 mg PO DAILY #30 tab 10/08/21 Allergies Allergy/AdvReac Type Severity Reaction Status Date / Time amoxicillin [From Augmentin] Allergy Rash/Hives Verified 10/26/21 14:35 clavulanic acid Allergy Rash/Hives Verified 10/26/21 14:35 [From Augmentin] Review of Systems ROS Statement: Those systems with pertinent positive or pertinent negative responses have been documented in the HPI. ROS Other: All systems not noted in ROS Statement are negative. Past Medical History Past Medical History: Coronary Artery Disease (CAD), Cancer, Diabetes Mellitus, GERD/Reflux, Hypertension, Osteoarthritis (OA) Additional Past Medical History / Comment(s): NIDDM type II, 1999 LEUKEMIA (CLL- remission), sinus problems, seasonal allergies, tinnitis bilaterally, OA hands, R wrist carpal tunnel, past fx with L elbow, R rotator cuff tendon problems, L rotator cuff tear, left knee pain History of Any Multi-Drug Resistant Organisms: None Reported Past Surgical History: Heart Catheterization, Orthopedic Surgery Additional Past Surgical History / Comment(s): LEFT HAND thumb tendon repair. L knee surgery. Past Anesthesia/Blood Transfusion Reactions: No Reported Reaction Past Psychological History: No Psychological Hx Reported Smoking Status: Never smoker Past Alcohol Use History: None Reported Past Drug Use History: None Reported - Past Family History Father Family Medical History: CVA/TIA Additional Family Medical History / Comment(s): Father at the age of 85yrs. Mother Family Medical History: Diabetes Mellitus Additional Family Medical History / Comment(s): Mother at the age of 90yrs. General Exam Limitations: no limitations General appearance: alert, in no apparent distress Head exam: Present: atraumatic, normocephalic, normal inspection Eye exam: Present: normal appearance, PERRL, EOMI. Absent: scleral icterus, conjunctival injection, periorbital swelling ENT exam: Present: normal exam, mucous membranes moist Neck exam: Present: normal inspection. Absent: tenderness, meningismus, lymphadenopathy Respiratory exam: Present: normal lung sounds bilaterally. Absent: respiratory distress, wheezes, rales, rhonchi, stridor Cardiovascular Exam: Present: regular rate, normal rhythm, normal heart sounds. Absent: systolic murmur, diastolic murmur, rubs, gallop, clicks GI/Abdominal exam: Present: soft, normal bowel sounds. Absent: distended, tenderness, guarding, rebound, rigid Extremities exam: Present: normal inspection, full ROM, normal capillary refill. Absent: tenderness, pedal edema, joint swelling, calf tenderness Back exam: Present: normal inspection Neurological exam: Present: alert, oriented X3, CN II-XII intact Psychiatric exam: Present: normal affect, normal mood Skin exam: Present: warm, dry, intact, normal color. Absent: rash Course Vital Signs 12/12/21 12/12/21 12/12/21 02:35 03:42 06:16 Temperature 98.3 F Pulse Rate 57 L 74 63 Respiratory 18 18 18 Rate Blood Pressure 187/89 155/77 184/83 O2 Sat by Pulse 97 98 98 Oximetry - Reevaluation(s) Reevaluation #1: 12/12/21 Medical record is reviewed Patient symptoms are improved here in the emergency department Patient informed of results and questions answered Medical Decision Making - Medical Decision Making 76 male with underlying cancer coming in for a fall. He is mildly to profoundly weak but is able to amply. Patient can be discharged home - Lab Data Result diagrams: 12/12/21 03:20 12/12/21 03:20 Lab Results 12/12/21 12/12/21 12/12/21 Range/Units 03:20 03:20 03:20 WBC 24.8 H (3.8-10.6) k/uL RBC 4.15 L (4.30-5.90) m/uL Hgb 13.5 (13.0-17.5) gm/dL Hct 39.0 (39.0-53.0) % MCV 94.1 (80.0-100.0) fL MCH 32.6 (25.0-35.0) pg MCHC 34.6 (31.0-37.0) g/dL RDW 14.8 (11.5-15.5) % Plt Count 96 L (150-450) k/uL MPV 8.4 Neutrophils % (Manual) 16 % Lymphocytes % (Manual) 81 % Monocytes % (Manual) 3 % Neutrophils # (Manual) 3.97 (1.3-7.7) k/uL Lymphocytes # (Manual) 20.09 H (1.0-4.8) k/uL Monocytes # (Manual) 0.74 (0-1.0) k/uL Nucleated RBCs 0 (0-0) /100 WBC Differential Comment Manual Slide Review Performed PT 11.6 (9.0-12.0) sec INR 1.1 (<1.2) APTT 22.0 (22.0-30.0) sec Sodium 138 (137-145) mmol/L Potassium 3.5 (3.5-5.1) mmol/L Chloride 104 (98-107) mmol/L Carbon Dioxide 28 (22-30) mmol/L Anion Gap 6 mmol/L BUN 19 (9-20) mg/dL Creatinine 0.74 (0.66-1.25) mg/dL Est GFR (CKD-EPI)AfAm >90 (>60 ml/min/1.73 sqM) Est GFR (CKD-EPI)NonAf >90 (>60 ml/min/1.73 sqM) Glucose 136 H (74-99) mg/dL Calcium 8.7 (8.4-10.2) mg/dL Phosphorus 3.4 (2.5-4.5) mg/dL Magnesium 1.8 (1.6-2.3) mg/dL Total Bilirubin 1.2 (0.2-1.3) mg/dL AST 22 (17-59) U/L ALT 22 (4-49) U/L Alkaline Phosphatase 88 (38-126) U/L Troponin I (0.000-0.034) ng/mL Total Protein 6.3 (6.3-8.2) g/dL Albumin 4.0 (3.5-5.0) g/dL 12/12/21 Range/Units 03:20 WBC (3.8-10.6) k/uL RBC (4.30-5.90) m/uL Hgb (13.0-17.5) gm/dL Hct (39.0-53.0) % MCV (80.0-100.0) fL MCH (25.0-35.0) pg MCHC (31.0-37.0) g/dL RDW (11.5-15.5) % Plt Count (150-450) k/uL MPV Neutrophils % (Manual) % Lymphocytes % (Manual) % Monocytes % (Manual) % Neutrophils # (Manual) (1.3-7.7) k/uL Lymphocytes # (Manual) (1.0-4.8) k/uL Monocytes # (Manual) (0-1.0) k/uL Nucleated RBCs (0-0) /100 WBC Differential Comment Manual Slide Review PT (9.0-12.0) sec INR (<1.2) APTT (22.0-30.0) sec Sodium (137-145) mmol/L Potassium (3.5-5.1) mmol/L Chloride (98-107) mmol/L Carbon Dioxide (22-30) mmol/L Anion Gap mmol/L BUN (9-20) mg/dL Creatinine (0.66-1.25) mg/dL Est GFR (CKD-EPI)AfAm (>60 ml/min/1.73 sqM) Est GFR (CKD-EPI)NonAf (>60 ml/min/1.73 sqM) Glucose (74-99) mg/dL Calcium (8.4-10.2) mg/dL Phosphorus (2.5-4.5) mg/dL Magnesium (1.6-2.3) mg/dL Total Bilirubin (0.2-1.3) mg/dL AST (17-59) U/L ALT (4-49) U/L Alkaline Phosphatase (38-126) U/L Troponin I <0.012 (0.000-0.034) ng/mL Total Protein (6.3-8.2) g/dL Albumin (3.5-5.0) g/dL - EKG Data -: EKG Interpreted by Me (EKG is sinus rhythm 61 DE 166 QRS 78 QTc 421) - Radiology Data Radiology results: report reviewed (Chest x-ray CT brain C-spine multiple other x-rays are negative for acute disease), image reviewed Disposition Clinical Impression: Fall, Back pain Disposition: HOME SELF-CARE Condition: Good Instructions (If sedation given, give patient instructions): Fall Prevention for Older Adults (ED) Is patient prescribed a controlled substance at d/c from ED?: No Referrals: Edgard Schneider DO [Primary Care Provider] - 1-2 days
[2021-12-12] MEDS ORDERED: MORPHINE SULFATE 4 MG/ML SYRINGE IV STA (03:18)
[2021-12-12] MEDS ORDERED: SODIUM CHLORIDE 0.9% 500 ML 500 ML IV STA (03:18)
--- NOTE | 2021-12-12 03:29 | XR ---
EXAMINATION TYPE: XR chest 1V DATE OF EXAM: 12/12/2021 COMPARISON: 10/06/2021 HISTORY: Chest pain TECHNIQUE: FINDINGS: Heart and mediastinum are normal. Lungs are clear. Diaphragm is normal. Bony thorax appears normal. IMPRESSION: Normal chest. No change.
--- NOTE | 2021-12-12 03:30 | XR ---
EXAMINATION TYPE: XR pelvis AP view DATE OF EXAM: 12/12/2021 COMPARISON: 03/05/2020 HISTORY: Pain TECHNIQUE: Single view FINDINGS: The pelvic ring is intact. Proximal femurs and hip joints are intact. Sacroiliac joints are normal. There is mild acetabular spurring. There is no evidence of focal bone destruction. IMPRESSION: Negative pelvis xray exam. No fracture. No change.
--- NOTE | 2021-12-12 03:31 | XR ---
EXAMINATION TYPE: XR knee complete LT DATE OF EXAM: 12/12/2021 COMPARISON: 03/05/2020 HISTORY: Knee pain TECHNIQUE: 3 views FINDINGS: There is minor spurring of the medial tibial condyle. There is minimal calcification of the medial meniscus. There is no joint effusion. There is no fracture nor dislocation. There is vascular calcification. IMPRESSION: Minor degenerative changes. No fracture. No significant joint space narrowing. No change.
[2021-12-12 03:33] LABS: HGB 13.5 gm/dL (13.0-17.5); MCH 32.6 pg (25.0-35.0); MCHC 34.6 g/dL (31.0-37.0); MCV 94.1 fL (80.0-100.0); Mean Platelet Volume 8.4; RBC 4.15 m/uL (4.30-5.90); RDW 14.8 % (11.5-15.5); WBC 24.8 k/uL (3.8-10.6)
--- NOTE | 2021-12-12 03:44 | CT ---
EXAMINATION TYPE: CT brain cspine wo con DATE OF EXAM: 12/12/2021 COMPARISON: 04/26/2020 HISTORY: fall. worsening pain over last few days CT DLP: 1409.4 mGycm Automated exposure control for dose reduction was used. There is some cerebral cortical atrophy. There is no mass effect or midline shift. There is no sign o f intracranial hemorrhage. The calvarium is intact. There is normal aeration of the mastoid sinuses. Skull base is intact. Cervical vertebra have normal alignment. Posterior elements are intact. There is hypertrophic mild ce rvical facet arthropathy. There is some degenerative disc space narrowing at C3-4 and C5-C6 with spur ring of the endplates. There is no compression fracture. IMPRESSION: Spondylotic changes in the cervical spine. No fracture. Cerebral atrophy. No acute intracranial abnormality. Brain not changed compared to old exam.
[2021-12-12 03:48] LABS: ALT 22 U/L (4-49); AST 22 U/L (17-59); African American GFR (CKD) >90 (>60 ml/min/1.73 sqM); Alkaline Phosphatase 88 U/L (38-126); Anion Gap 6 mmol/L; Blood Urea Nitrogen 19 mg/dL (9-20); Calcium 8.7 mg/dL (8.4-10.2); Carbon Dioxide 28 mmol/L (22-30); Chloride 104 mmol/L (98-107); Glucose 136 mg/dL (74-99); Magnesium 1.8 mg/dL (1.6-2.3); Non-African American GFR(CKD) >90 (>60 ml/min/1.73 sqM); Phosphorus 3.4 mg/dL (2.5-4.5); Potassium 3.5 mmol/L (3.5-5.1); Sodium 138 mmol/L (137-145); Total Bilirubin 1.2 mg/dL (0.2-1.3); Total Protein 6.3 g/dL (6.3-8.2)
[2021-12-12 03:51] LABS: INR 1.1 (<1.2); Prothrombin Time 11.6 sec (9.0-12.0)
[2021-12-12 04:00] LABS: Lymphocytes # (M) 20.09 k/uL (1.0-4.8); Monocytes # (M) 0.74 k/uL (0-1.0); Neutrophils # (M) 3.97 k/uL (1.3-7.7); Neutrophils % (M) 16 %; Nucleated Red Blood Cells 0 /100 WBC (0-0); Platelet Count 96 k/uL (150-450); Total Cells Counted 100
[2021-12-12 06:18] VITALS: BP 184/83; PULSE 63
== END 2021-12-12 07:01 | disposition home or self-care (01) ==
LOC: EC 02:30
DX: M54.9 Dorsalgia, unspecified (principal); I25.10 Atherosclerotic heart disease of native coronary artery without angina pectoris; E11.9 Type 2 diabetes mellitus without complications; K21.9 Gastro-esophageal reflux disease without esophagitis; I10 Essential (primary) hypertension; M19.90 Unspecified osteoarthritis, unspecified site; Z79.4 Long term (current) use of insulin; Z79.82 Long term (current) use of aspirin; Z85.6 Personal history of leukemia; W01.0XXA Fall on same level from slipping, tripping and stumbling without subsequent striking against object, initial encounter
CPT/HCPCS: 99284; 96374; 36415; 93005; 80053; 83735; 84100; 84484; 85025; 85610; 85730; 72170; 73562; 71045; 72125; 70450; J2270

== ENCOUNTER 2022-04-04 22:50 | Observation (INO) | payer MEDICARE ==
[2022-04-04] MEDS ORDERED: SODIUM CHLORIDE 0.9% 1,000 ML IV STA (22:58)
--- NOTE | 2022-04-04 23:05 | ED ---
Chest Pain HPI - General Chief Complaint: Chest Pain Stated Complaint: Chest Pain Time Seen by Provider: 04/04/22 22:52 Source: patient, EMS, RN notes reviewed, old records reviewed Mode of arrival: EMS Limitations: no limitations - History of Present Illness Initial Comments: This is a 76-year-old male to the emergency department for evaluation. Patient presents today for evaluation regards to dizziness lightheadedness and chest pain. Patient has significant chest pain here in the emergency department. No real travel history or sick contacts. Patient has increased stress in his life lately has history of CAD high blood pressure diabetes. Patient having persistent chest pain on arrival to the ER MD Complaint: chest pain -: hour(s) Onset: during rest, during exertion Pain Location: left chest Severity: mild Severity scale (1-10): 1 Quality: heaviness Consistency: intermittent Improves With: nothing Worsens With: nothing Anginal Symptoms: nausea, diaphoresis, dyspnea Other Symptoms: palpitations Treatments Prior to Arrival: none - Related Data Home Medications Medication Instructions Recorded Confirmed Montelukast Sodium [Singulair] 10 mg PO DAILY 05/25/17 10/26/21 Insulin NPH Hum/Reg Insulin Hm 22 units SQ AC-BRKFST 03/05/20 10/26/21 [Relion Novolin 70-30 Flexpen] Fluticasone Nasal [place] [Flonase 1 spr EA NOSTRIL DAILY 01/24/21 10/26/21 Nasal [place]] HYDROcodone/APAP 5-325MG [[place] 1 tab PO Q6HR PRN 01/24/21 10/26/21 5-325] Ketorolac 0.5% Ophth Soln [Acular 1 drop BOTH EYES BID 01/24/21 10/26/21 0.5%] Atorvastatin [Lipitor] 80 mg PO HS 03/08/21 10/26/21 Baclofen [Lioresal] 10 mg PO DAILY 04/18/21 10/26/21 SILVER sulfADIAZINE CREAM 1 applic TOPICAL BID 04/18/21 10/26/21 [Silvadene Cream] Gabapentin 300 mg PO HS 07/27/21 10/26/21 Omeprazole 40 mg PO DAILY 07/27/21 10/26/21 lisinopriL [Zestril] 20 mg PO DAILY 07/27/21 10/26/21 ALPRAZolam [Xanax] 0.25 mg PO DAILY PRN 09/06/21 10/26/21 Brimonidine Tartrate/Timolol 1 drop BOTH EYES BID 09/06/21 10/26/21 [Combigan 0.2%-0.5% Eye Drops] Latanoprost/Pf [Latanoprost 0.005% 1 drop BOTH EYES HS 09/06/21 10/26/21 Eye Drop] Nitroglycerin Sl Tabs [Nitrostat] 0.4 mg SL Q5M PRN 09/06/21 10/26/21 Previous Rx's Medication Instructions Recorded Isosorbide Mononitrate ER [Imdur] 30 mg PO DAILY #30 tab 04/19/21 Aspirin 81 mg PO DAILY tab 07/28/21 amLODIPine [Norvasc] 10 mg PO DAILY #30 tab 10/08/21 Allergies Allergy/AdvReac Type Severity Reaction Status Date / Time amoxicillin [From Augmentin] Allergy Rash/Hives Verified 10/26/21 14:35 clavulanic acid Allergy Rash/Hives Verified 10/26/21 14:35 [From Augmentin] Review of Systems ROS Statement: Those systems with pertinent positive or pertinent negative responses have been documented in the HPI. ROS Other: All systems not noted in ROS Statement are negative. EKG Findings - EKG Comments: EKG Findings:: EKG sinus bradycardia 53 OR 180 QRS 490 QTC 440 Past Medical History Past Medical History: Coronary Artery Disease (CAD), Cancer, Diabetes Mellitus, GERD/Reflux, Hypertension, Osteoarthritis (OA) Additional Past Medical History / Comment(s): NIDDM type II, 1999 LEUKEMIA (CLL- remission), sinus problems, seasonal allergies, tinnitis bilaterally, OA hands, R wrist carpal tunnel, past fx with L elbow, R rotator cuff tendon problems, L rotator cuff tear, left knee pain History of Any Multi-Drug Resistant Organisms: None Reported Past Surgical History: Heart Catheterization, Orthopedic Surgery Additional Past Surgical History / Comment(s): LEFT HAND thumb tendon repair. L knee surgery. Past Anesthesia/Blood Transfusion Reactions: No Reported Reaction Past Psychological History: No Psychological Hx Reported Smoking Status: Never smoker Past Alcohol Use History: None Reported Past Drug Use History: None Reported - Past Family History Father Family Medical History: CVA/TIA Additional Family Medical History / Comment(s): Father at the age of 85yrs. Mother Family Medical History: Diabetes Mellitus Additional Family Medical History / Comment(s): Mother at the age of 90yrs. General Exam General appearance: alert, in no apparent distress Head exam: Present: atraumatic, normocephalic, normal inspection Eye exam: Present: normal appearance, PERRL, EOMI. Absent: scleral icterus, conjunctival injection, periorbital swelling ENT exam: Present: normal exam, mucous membranes moist Neck exam: Present: normal inspection. Absent: tenderness, meningismus, lymphadenopathy Respiratory exam: Present: normal lung sounds bilaterally. Absent: respiratory distress, wheezes, rales, rhonchi, stridor Cardiovascular Exam: Present: regular rate, normal rhythm, normal heart sounds. Absent: systolic murmur, diastolic murmur, rubs, gallop, clicks GI/Abdominal exam: Present: soft, normal bowel sounds. Absent: distended, tenderness, guarding, rebound, rigid Extremities exam: Present: normal inspection, full ROM, normal capillary refill. Absent: tenderness, pedal edema, joint swelling, calf tenderness Back exam: Present: normal inspection Neurological exam: Present: alert, oriented X3, CN II-XII intact Psychiatric exam: Present: normal affect, normal mood Skin exam: Present: warm, dry, intact, normal color. Absent: rash Course Vital Signs 04/04/22 04/05/22 04/05/22 22:53 00:05 01:19 Temperature 98 F Pulse Rate 59 L 50 L 49 L Respiratory 18 14 12 Rate Blood Pressure 147/67 121/66 154/77 O2 Sat by Pulse 95 100 Oximetry - Reevaluation(s) Reevaluation #1: 04/05/22 01:50 Medical records reviewed Reevaluation #2: 04/05/22 01:51 Patient still having symptoms dizziness headache chest pain. Reevaluation #3: 04/05/22 01:51 Patient informed of results and questions answered - Consultations Consultation #1: Spoke with sound who agrees to admit this patient Chest Pain MDM - MDM 76 male DF for evaluation. Patient coming in for dizziness lightheadedness weakness and chest pain. Chest pain is original and main complaint. Patient be admitted for chest pain observation she has history of CAD diabetes high blood pressure Disposition Clinical Impression: Chest pain, Weakness, Dizziness Disposition: ADMITTED IP TO THIS HOSP Condition: Good Is patient prescribed a controlled substance at d/c from ED?: No Referrals: Edgard Schneider DO [Primary Care Provider] - 1-2 days
[2022-04-04 23:24] LABS: HCT 39.5 % (39.0-53.0); HGB 13.8 gm/dL (13.0-17.5); MCV 94.3 fL (80.0-100.0); Mean Platelet Volume 8.2; Platelet Count 131 k/uL (150-450); RBC 4.19 m/uL (4.30-5.90); RDW 14.3 % (11.5-15.5); WBC 30.7 k/uL (3.8-10.6)
--- NOTE | 2022-04-04 23:38 | XR ---
EXAMINATION TYPE: XR chest 1V portable DATE OF EXAM: 04/04/2022 COMPARISON: 12/12/2021 HISTORY: Chest pain TECHNIQUE: FINDINGS: There is no heart failure or confluent pneumonic infiltrate. Costophrenic angles are clear. There are chest leads. Bony thorax is intact. There is slight coarsening of interstitial markings. N o pneumothorax. IMPRESSION: There is some mild pulmonary interstitial density. Interstitial density increase compared to old exam. This could be acute or chronic interstitial pneumonia. No pleural fluid seen to suggest heart failure.
[2022-04-04 23:52] LABS: Partial Thromboplastin Time 22.7 sec (22.0-30.0); Prothrombin Time 11.2 sec (9.0-12.0)
[2022-04-04 23:59] LABS: ALT 20 U/L (4-49); AST 36 U/L (17-59); African American GFR (CKD) >90 (>60 ml/min/1.73 sqM); Albumin 4.1 g/dL (3.5-5.0); Alkaline Phosphatase 93 U/L (38-126); Anion Gap 11 mmol/L; Blood Urea Nitrogen 14 mg/dL (9-20); Calcium 8.6 mg/dL (8.4-10.2); Carbon Dioxide 19 mmol/L (22-30); Chloride 107 mmol/L (98-107); Glucose 139 mg/dL (74-99); Lipase 56 U/L (23-300); Magnesium 1.9 mg/dL (1.6-2.3); Non-African American GFR(CKD) 86 (>60 ml/min/1.73 sqM); Sodium 137 mmol/L (137-145); Total Protein 6.4 g/dL (6.3-8.2)
[2022-04-05] MEDS ORDERED: MORPHINE SULFATE 4 MG/ML SYRINGE IVP STA
[2022-04-05 00:01] LABS: Potassium 4.3 mmol/L (3.5-5.1)
[2022-04-05 01:33] LABS: Lymphocytes # (M) 25.48 k/uL (1.0-4.8); Monocytes # (M) 0.31 k/uL (0-1.0); Neutrophils # (M) 4.91 k/uL (1.3-7.7); Neutrophils % (M) 16 %; Nucleated Red Blood Cells 0 /100 WBC (0-0); Total Cells Counted 100
[2022-04-05] MEDS ORDERED: ONDANSETRON 4 MG/2 ML VIAL IVP PRN (01:48)
[2022-04-05] MEDS ORDERED: LORazepam 1 MG/0.5 ML VIAL IV STA (01:48)
[2022-04-05] MEDS ORDERED: ONDANSETRON 4 MG/2 ML VIAL IVP STA (01:48)
[2022-04-05] MEDS ORDERED: MORPHINE SULFATE 4 MG/ML SYRINGE IV PRN (01:48)
[2022-04-05] MEDS ORDERED: NALOXONE 0.4 MG/ML 1 ML VIAL IV PRN (01:48)
[2022-04-05] MEDS ORDERED: LORazepam 2 MG/ML INJ IV PRN (01:48)
[2022-04-05] MEDS: SODIUM CHLORIDE 0.9% 1,000 ML IV SCH ×4 (02:07→23:50)
[2022-04-05 07:51] LABS: Glucose,Whole Blood 102 mg/dL (70-110)
[2022-04-05] MEDS ORDERED: NITROGLYCERIN SL TABS 0.4 MG TAB SUBLINGUAL PRN (10:35)
[2022-04-05] MEDS ORDERED: ALPRAZolam 0.25 MG TAB PO PRN (10:35)
[2022-04-05] MEDS ORDERED: LORazepam 0.5 MG TAB PO PRN (10:37)
[2022-04-05] MEDS: GABAPENTIN 300 MG CAP PO SCH ×2 (11:03→19:54)
[2022-04-05] MEDS: HYDROcodone/APAP 5-325MG 1 EACH TAB PO PRN ×2 (11:03→18:27)
[2022-04-05] MEDS: lisinopriL 20 MG TAB PO SCH ×2 (11:03→19:54)
[2022-04-05] MEDS: amLODIPine 5 MG TAB PO SCH (11:03)
[2022-04-05] MEDS: ASPIRIN 81 MG PO SCH (11:03)
[2022-04-05] MEDS: BACLOFEN 10 MG TAB PO SCH (11:03)
[2022-04-05] MEDS: FLUTICASONE 50MCG/SPRAY NASAL 16GM EA NOSTRIL SCH (11:53)
[2022-04-05] MEDS: BRIMONIDINE TARTRATE 0.2% DROPS 5 ML BTL BOTH EYES SCH ×2 (11:53→19:55)
[2022-04-05] MEDS: TIMOLOL 0.5% OPHTH DROPS 5 ML BTL BOTH EYES SCH ×2 (11:53→19:56)
--- NOTE | 2022-04-05 13:55 | P.HPIM ---
History of Present Illness H&P Date: 04/05/22 Chief Complaint: Chest pain History of present illness: 76-year-old gentleman with past medical history significant for nonobstructive coronary disease with multiple admissions for chest pain in the past few months. Past medical history significant for hypertension type 2 diabetes mellitus, chronic back pain and chronic lymphocytic leukemia. Patient presenting with ambulance with chief complaint of chest pain and inguinal on and off for the past 2 weeks associated with exertional dyspnea. The pain is in the left side described as someone sitting in his chest with no radiation. Patient denied any diaphoresis or nausea or vomiting. The pain was 9 out of 10 in severity for calling the ambulance. No alleviating or exacerbating factors. Patient also reports intermittent headache and he attributes that to possible sinus problem. Patient denies any visual changes. Patient denies any history of stroke. Patient denies any history of cancer. Patient denies recent travel sick contacts. He lives with his . Review of system: All 14 review of systems evaluated and all negative except for above. Physical examination: General: non toxic, no distress, appears at stated age Derm: warm, dry Head: atraumatic, normocephalic, symmetric Eyes: EOMI, no lid lag, anicteric sclera Mouth: no lip lesion, mucus membranes moist Cardiovascular: S1S2 reg, no murmur, positive posterior tibial pulse bilateral, Lungs: CTA bilateral, no rhonchi, no rales , no accessory muscle use Abdominal: soft, nontender to palpation, no guarding, no appreciable organomegaly Ext: no gross muscle atrophy, no edema, no contractures Neuro: CN II-XI grossly intact, no focal neuro deficits Psych: Alert, oriented, appropriate affect Assessment and plan: #Chest pain -Acute coronary syndrome has been ruled out -Pending cardiology evaluation -EKG shows sinus bradycardia with nonspecific ST segment or T-wave changes. -Pending cardiology evaluation -Resume baby aspirin, Imdur and statins -Check LDL and A1c #Intractable headache for 2 months -CT of the brain ordered -Sed rate and CRP ordered -Check CT sinuses. -Neurology consultation was placed #History of chronic CLL #Chronic back pain with left lower extremity radiculopathy -Resume gabapentin, [place], and baclofen as needed #Type 2 diabetes mellitus -Diabetic diet and sliding scale insulin -Check A1c #Hypertension -Resume Norvasc and lisinopril. Past Medical History Past Medical History: Coronary Artery Disease (CAD), Cancer, Diabetes Mellitus, GERD/Reflux, Hypertension, Osteoarthritis (OA) Additional Past Medical History / Comment(s): NIDDM type II, 1998 LEUKEMIA (CLL- remission), sinus problems, seasonal allergies, tinnitis bilaterally, OA hands, R wrist carpal tunnel, past fx with L elbow, R rotator cuff tendon problems, L rotator cuff tear, left knee pain History of Any Multi-Drug Resistant Organisms: None Reported Past Surgical History: Heart Catheterization, Orthopedic Surgery Additional Past Surgical History / Comment(s): LEFT HAND thumb tendon repair. L knee surgery. Past Anesthesia/Blood Transfusion Reactions: No Reported Reaction Past Psychological History: No Psychological Hx Reported Smoking Status: Never smoker Past Alcohol Use History: None Reported Past Drug Use History: None Reported - Past Family History Father Family Medical History: CVA/TIA Additional Family Medical History / Comment(s): Father at the age of 85yrs. Mother Family Medical History: Diabetes Mellitus Additional Family Medical History / Comment(s): Mother at the age of 90yrs. Medications and Allergies Home Medications Medication Instructions Recorded Confirmed Type Montelukast Sodium [Singulair] 10 mg PO HS 05/25/17 04/05/22 History Insulin NPH Hum/Reg Insulin Hm 20 units SQ AC-BRKFST 03/05/20 04/05/22 History [Relion Novolin 70-30 Flexpen] Fluticasone Nasal [place] [Flonase 1 spr EA NOSTRIL DAILY 01/24/21 04/05/22 History Nasal [place]] HYDROcodone/APAP 5-325MG [[place] 1 tab PO Q6HR PRN 01/24/21 04/05/22 History 5-325] Ketorolac 0.5% Ophth Soln [Acular 1 drop BOTH EYES BID 01/24/21 04/05/22 History 0.5%] Atorvastatin [Lipitor] 80 mg PO HS 03/08/21 04/05/22 History Baclofen [Lioresal] 10 mg PO DAILY 04/18/21 04/05/22 History SILVER sulfADIAZINE CREAM 1 applic TOPICAL DAILY PRN 04/18/21 04/05/22 History [Silvadene Cream] Isosorbide Mononitrate ER [Imdur] 30 mg PO DAILY #30 tab 04/19/21 04/05/22 Rx Gabapentin 300 mg PO BID 07/27/21 04/05/22 History Omeprazole 40 mg PO DAILY 07/27/21 04/05/22 History lisinopriL [Zestril] 20 mg PO BID 07/27/21 04/05/22 History Aspirin 81 mg PO DAILY tab 07/28/21 04/05/22 Rx ALPRAZolam [Xanax] 0.25 mg PO DAILY PRN 09/06/21 04/05/22 History Brimonidine Tartrate/Timolol 1 drop BOTH EYES BID 09/06/21 04/05/22 History [Combigan 0.2%-0.5% Eye Drops] Latanoprost/Pf [Latanoprost 0.005% 1 drop BOTH EYES HS 09/06/21 04/05/22 History Eye Drop] Nitroglycerin Sl Tabs [Nitrostat] 0.4 mg SL Q5M PRN 09/06/21 04/05/22 History amLODIPine [Norvasc] 5 mg PO DAILY 04/05/22 04/05/22 History Allergies Allergy/AdvReac Type Severity Reaction Status Date / Time amoxicillin [From Augmentin] Allergy Rash/Hives Verified 04/05/22 07:52 clavulanic acid Allergy Rash/Hives Verified 04/05/22 07:52 [From Augmentin] Physical Exam Vitals: Vital Signs Temp Pulse Resp BP Pulse Ox 04/05/22 12:00 58 L 16 169/72 04/05/22 10:00 16 164/76 04/05/22 08:51 60 18 177/95 97 04/05/22 04:50 52 L 16 116/58 95 04/05/22 01:19 49 L 12 154/77 100 04/05/22 00:05 50 L 14 121/66 04/04/22 22:53 98 F 59 L 18 147/67 95 Intake and Output 04/04/22 04/05/22 04/05/22 22:59 06:59 14:59 Other: Weight 98.883 kg Results CBC & Chem 7: 04/04/22 23:00 04/04/22 23:00 Labs: Abnormal Lab Results - Last 24 Hours (Table) 04/04/22 04/04/22 Range/Units 23:00 23:00 WBC 30.7 H (3.8-10.6) k/uL RBC 4.19 L (4.30-5.90) m/uL Plt Count 131 L (150-450) k/uL Lymphocytes # (Manual) 25.48 H (1.0-4.8) k/uL Carbon Dioxide 19 L (22-30) mmol/L Glucose 139 H (74-99) mg/dL
--- NOTE | 2022-04-05 14:35 | CT ---
EXAMINATION TYPE: CT brain wo con DATE OF EXAM: 04/05/2022 COMPARISON: CT dated 12/12/2021 HISTORY: Headache. CT DLP: 1188.4 mGycm Automated exposure control for dose reduction was used. TECHNIQUE: CT scan of the brain is performed without IV contrast administration. FINDINGS: Brain volume loss changes, likely age-related. Bilateral cerebral white matter hypodensities, likely representing chronic microvascular ischemic changes. Scattered arterial atherosclerotic calcification s. No acute intracranial hemorrhage. No gross acute cortical infarct. No midline shift, herniation or ve ntriculomegaly. Unremarkable basal cisterns, sella and CP angles. No gross space-occupying lesion, vasogenic edema or mass effect. Unremarkable orbits. Clear mastoid air cells. Unremarkable calvarial bones. IMPRESSION: No acute intracranial abnormality or gross space-occupying lesion by this nonenhanced CT scan. Chroni c changes as described above.
--- NOTE | 2022-04-05 14:40 | CT ---
EXAMINATION TYPE: CT sinus wo con DATE OF EXAM: 04/05/2022 COMPARISON: CT dated 07/22/2021 HISTORY: Acute sinusitis. CT DLP: 1188.4 mGycm. Automated Exposure Control for Dose Reduction was Utilized. TECHNIQUE: CT scan of the sinuses is performed without contrast, axial images are obtained, coronal r eformatted images are also reviewed. FINDINGS: Minimal deviation of the bony nasal septum convex to the right side anteriorly and to the left side p osteriorly. Bilateral middle conchal bullosa. Debris/mucosal thickening of the left nasal fossa just inferior to the left middle turbinate. No significant mucosal thickening of the nasal fossa otherwise . Patent infundibulum bilaterally. Mild mucosal thickening of the middle meatus bilaterally. Clear maxi llary sinuses, frontal sinus, ethmoid air cells and sphenoid sinus. Patent sphenoethmoidal recesses. Clear mastoid air cells. Grossly unremarkable nasopharynx and orbits. CT scan of the brain is dictate d separately. IMPRESSION: No evidence of acute or chronic sinusitis. Mild bony nasal septum deviation and other findings as austin cribed above.
[2022-04-05 16:51] LABS: Glucose,Whole Blood 254 mg/dL (70-110)
[2022-04-05 17:00] LABS: Chol/HDL Ratio 3.92 Ratio; LDL Cholesterol,Calculated 88.4 mg/dL (0.0-131.0)
[2022-04-05] MEDS: KETOROLAC 0.5% OPHTH DROPS 5 ML BTL BOTH EYES SCH (19:55)
[2022-04-05] MEDS ORDERED: MONTELUKAST 10 MG TAB PO SCH (21:00)
[2022-04-05] MEDS ORDERED: LATANOPROST 0.005% OPHTH DROPS 2.5 ML BTL BOTH EYES SCH (21:00)
[2022-04-05] MEDS ORDERED: ATORVASTATIN 80 MG TAB PO SCH (21:00)
[2022-04-05 21:31] LABS: Glucose,Whole Blood 292 mg/dL (70-110)
[2022-04-06] MEDS: HYDROcodone/APAP 5-325MG 1 EACH TAB PO PRN (02:41)
[2022-04-06] MEDS ORDERED: PANTOPRAZOLE 40 MG TABLET PO SCH (07:30)
[2022-04-06] MEDS ORDERED: INSULN ASP PRT/INSULIN ASPART 100 UNIT/ML 10 ML VIAL SQ SCH (07:30)
[2022-04-06 07:48] LABS: Glucose,Whole Blood 228 mg/dL (70-110)
[2022-04-06] MEDS: BACLOFEN 10 MG TAB PO SCH (08:12)
[2022-04-06] MEDS: amLODIPine 5 MG TAB PO SCH (08:13)
[2022-04-06] MEDS: TIMOLOL 0.5% OPHTH DROPS 5 ML BTL BOTH EYES SCH (08:13)
[2022-04-06] MEDS: ASPIRIN 81 MG PO SCH (08:13)
[2022-04-06] MEDS: BRIMONIDINE TARTRATE 0.2% DROPS 5 ML BTL BOTH EYES SCH (08:14)
[2022-04-06] MEDS: KETOROLAC 0.5% OPHTH DROPS 5 ML BTL BOTH EYES SCH (08:14)
[2022-04-06] MEDS: FLUTICASONE 50MCG/SPRAY NASAL 16GM EA NOSTRIL SCH (08:14)
[2022-04-06] MEDS: lisinopriL 20 MG TAB PO SCH (08:17)
[2022-04-06] MEDS: GABAPENTIN 300 MG CAP PO SCH (08:17)
[2022-04-06] MEDS ORDERED: ISOSORBIDE MONONITRATE ER 30 MG TAB.ER.24H PO SCH (09:00)
[2022-04-06 10:13] LABS: Basophils # (A) 0.1 k/uL (0-0.2); Basophils % (A) 1 %; Eosinophils # (A) 0.1 k/uL (0-0.7); Eosinophils % (A) 1 %; HCT 41.4 % (39.0-53.0); HGB 14.1 gm/dL (13.0-17.5); Lymphocytes % (A) 74 %; MCH 32.8 pg (25.0-35.0); MCHC 34.1 g/dL (31.0-37.0); MCV 96.2 fL (80.0-100.0); Mean Platelet Volume 7.8; Monocytes # (A) 0.3 k/uL (0-1.0); Monocytes % (A) 2 %; Neutrophils # (A) 4.6 k/uL (1.3-7.7); Neutrophils % (A) 21 %
[2022-04-06 10:14] LABS: Lymphocytes # (A) 16.2 k/uL (1.0-4.8)
[2022-04-06 10:36] LABS: Platelet Count 93 k/uL (150-450)
[2022-04-06 10:38] LABS: Poikilocytosis (M) Present
--- NOTE | 2022-04-06 10:53 | P.CRDCN ---
History of Present Illness Consult date: 04/06/22 History of present illness: HISTORY OF PRESENT ILLNESS: This is a 76-year-old male with a past medical history significant for nonobstructive coronary artery disease, hypertension, diabetes, and GERD. Patient follows in the office with Dr. Macdonald. We have been asked to see the patient in consultation for chest pain. Patient examined at the bedside. Patient states he presented to the hospital with a chief complaint of headache. Patient also reports having chest pain. However when questioning the patient regarding his chest pain he points to his left and right upper abdominal quadrants. His pain is not actually in fact chest pain. He denied any shortness of breath. He reports nausea but no vomiting. Denies any radiation of the pain into his arm jaw or back. Denies dizziness or lightheadedness. He states this pain has been occurring for the past several months. * EKG reveals sinus mechanism with nonspecific ST-T wave changes * Chest xray there is some mild pulmonary interstitial density. Interstitial densities increased compared to old exam. This could be acute or chronic interstitial pneumonia. No pleural fluid seen to suggest heart failure. * Laboratory data: WBC 22.0. Hemoglobin 14.1. Platelet count 93. Sodium 137. Potassium 4.3. BUN 14. Creatinine 0.86. Troponin negative 3 * Current home cardiac medications include lisinopril 20 mg twice a day, Norvasc 5 mg daily, Imdur 30 mg daily, Lipitor 80 mg at night, and aspirin 81 mg daily * Most recent echocardiogram obtained in the September 2021 revealed ejection fraction 55-60% * Cardiac catheterization history: July 2021 revealing intermediate nonobstructive disease involving the RCA with a lesion ranging between 40 and 50%. Midportion of circumflex with 20-30% stenosis. REVIEW OF SYSTEMS: At the time of my exam: CONSTITUTIONAL: Denies fever or chills. HEENT: Denies blurred vision, vision changes, or eye pain. Denies hemoptysis CARDIOVASCULAR: Denies chest pain. Denies orthopnea. Denies PND. Denies palpitations RESPIRATORY: Denies shortness of breath. GASTROINTESTINAL: Denies abdominal pain. Denies nausea or vomiting. HEMATOLOGIC: Denies bleeding disorders. GENITOURINARY: Denies any blood in urine. SKIN: Denies pruitis. Denies rash. PHYSICAL EXAM: VITAL SIGNS: Reviewed. GENERAL: Well-developed in no acute distress. HEENT: Head is normocephalic. Pupils are equal, round. Sclerae anicteric. Mucous membranes of the mouth are moist. Neck supple. No JVD or thyromegaly LUNGS: Respirations even and unlabored. Lungs essentially clear to auscultation bilaterally. HEART: Regular rate and rhythm. S1 and S2 heard. ABDOMEN: Soft. Nondistended. Nontender. EXTREMITIES: Normal range of motion. No clubbing or cyanosis. Peripheral pulses intact. No lower extremity edema NEUROLOGIC: Awake and alert. Oriented x 3. ASSESSMENT: Chest pain, ruled out, patient actually has right and left upper quadrant abdominal pain Nonobstructive coronary artery disease Hypertension Diabetes GERD PLAN: Acute coronary and has been ruled out Patient is noted to have recent echocardiogram performed in September 2021 and heart catheterization performed in July 2021 revealing nonobstructive coronary artery disease The patient is currently not complaining of chest pain. However he is reporting right and upper left quadrant abdominal pain. We'll defer management of this to internal medicine. We will sign off. Please reconsult if needed Nurse practitioner note has been reviewed by physician. Signing provider agrees with the documented findings, assessment, and plan of care. Past Medical History Past Medical History: Coronary Artery Disease (CAD), Cancer, Diabetes Mellitus, GERD/Reflux, Hypertension, Osteoarthritis (OA) Additional Past Medical History / Comment(s): NIDDM type II, 1999 LEUKEMIA (CLL- remission), sinus problems, seasonal allergies, tinnitis bilaterally, OA hands, R wrist carpal tunnel, past fx with L elbow, R rotator cuff tendon problems, L rotator cuff tear, left knee pain History of Any Multi-Drug Resistant Organisms: None Reported Past Surgical History: Heart Catheterization, Orthopedic Surgery Additional Past Surgical History / Comment(s): LEFT HAND thumb tendon repair. L knee surgery. Past Anesthesia/Blood Transfusion Reactions: No Reported Reaction Past Psychological History: No Psychological Hx Reported Smoking Status: Never smoker Past Alcohol Use History: None Reported Past Drug Use History: None Reported - Past Family History Father Family Medical History: CVA/TIA Additional Family Medical History / Comment(s): Father at the age of 85yrs. Mother Family Medical History: Diabetes Mellitus Additional Family Medical History / Comment(s): Mother at the age of 90yrs. Medications and Allergies Home Medications Medication Instructions Recorded Confirmed Type Montelukast Sodium [Singulair] 10 mg PO HS 05/25/17 04/05/22 History Insulin NPH Hum/Reg Insulin Hm 20 units SQ AC-BRKFST 03/05/20 04/05/22 History [Relion Novolin 70-30 Flexpen] Fluticasone Nasal [place] [Flonase 1 spr EA NOSTRIL DAILY 01/24/21 04/05/22 History Nasal [place]] HYDROcodone/APAP 5-325MG [[place] 1 tab PO Q6HR PRN 01/24/21 04/05/22 History 5-325] Ketorolac 0.5% Ophth Soln [Acular 1 drop BOTH EYES BID 01/24/21 04/05/22 History 0.5%] Atorvastatin [Lipitor] 80 mg PO HS 03/08/21 04/05/22 History Baclofen [Lioresal] 10 mg PO DAILY 04/18/21 04/05/22 History SILVER sulfADIAZINE CREAM 1 applic TOPICAL DAILY PRN 04/18/21 04/05/22 History [Silvadene Cream] Isosorbide Mononitrate ER [Imdur] 30 mg PO DAILY #30 tab 04/19/21 04/05/22 Rx Gabapentin 300 mg PO BID 07/27/21 04/05/22 History Omeprazole 40 mg PO DAILY 07/27/21 04/05/22 History lisinopriL [Zestril] 20 mg PO BID 07/27/21 04/05/22 History Aspirin 81 mg PO DAILY tab 07/28/21 04/05/22 Rx ALPRAZolam [Xanax] 0.25 mg PO DAILY PRN 09/06/21 04/05/22 History Brimonidine Tartrate/Timolol 1 drop BOTH EYES BID 09/06/21 04/05/22 History [Combigan 0.2%-0.5% Eye Drops] Latanoprost/Pf [Latanoprost 0.005% 1 drop BOTH EYES HS 09/06/21 04/05/22 History Eye Drop] Nitroglycerin Sl Tabs [Nitrostat] 0.4 mg SL Q5M PRN 09/06/21 04/05/22 History amLODIPine [Norvasc] 5 mg PO DAILY 04/05/22 04/05/22 History Allergies Allergy/AdvReac Type Severity Reaction Status Date / Time amoxicillin [From Augmentin] Allergy Rash/Hives Verified 04/05/22 07:52 clavulanic acid Allergy Rash/Hives Verified 04/05/22 07:52 [From Augmentin] Physical Exam Vitals: Vital Signs Temp Pulse Pulse Resp BP BP Pulse Ox 04/06/22 08:00 16 04/06/22 07:00 98.3 F 53 L 16 143/76 98 04/06/22 03:28 97.5 F L 43 L 16 127/67 96 04/05/22 20:21 97.8 F 52 L 17 152/67 96 04/05/22 14:46 97.9 F 67 18 158/75 94 L 04/05/22 12:00 58 L 16 169/72 Intake and Output 04/05/22 04/06/22 04/06/22 22:59 06:59 14:59 Intake Total 118 Balance 118 Intake: Oral 118 Other: # Voids 1 1 Results 04/06/22 09:09 04/04/22 23:00 Lipids 04/05/22 Range/Units 10:51 Triglycerides 64.50 (0.00-149.00) mg/dL Cholesterol 136.00 (0.00-200.00) mg/dL HDL Cholesterol 34.70 L (40.00-60.00) mg/dL Cholesterol/HDL Ratio 3.92 Ratio CBC 04/06/22 Range/Units 09:09 WBC 22.0 H (3.8-10.6) k/uL RBC 4.30 (4.30-5.90) m/uL Hgb 14.1 (13.0-17.5) gm/dL Hct 41.4 (39.0-53.0) % Current Medications Generic Name Dose Route Start Last Admin Trade Name Freq PRN Reason Stop Dose Admin Hydrocodone Bitart/Acetaminophen 1 each 04/05/22 10:35 04/06/22 02:41 Hydrocodone/Apap 5-325mg 1 Each Tab PO 1 each Q6HR PRN Administration Pain Alprazolam 0.25 mg 04/05/22 10:35 04/05/22 16:15 Alprazolam 0.25 Mg Tab PO 0.25 mg DAILY PRN Administration Anxiety Amlodipine Besylate 5 mg 04/05/22 10:45 04/06/22 08:13 Amlodipine 5 Mg Tab PO 5 mg DAILY RAJWINDER Administration Aspirin 81 mg 04/05/22 10:45 04/06/22 08:13 Aspirin 81 Mg PO 81 mg DAILY RAJWINDER Administration Atorvastatin Calcium 80 mg 04/05/22 21:00 04/05/22 19:54 Atorvastatin 80 Mg Tab PO 80 mg HS RAJWINDER Administration Baclofen 10 mg 04/05/22 10:45 04/06/22 08:12 Baclofen 10 Mg Tab PO 10 mg DAILY RAJWINDER Administration Brimonidine Tartrate 1 drops 04/05/22 10:45 04/06/22 08:14 Brimonidine Tartrate 0.2% Drops 5 Ml Btl BOTH EYES 1 drops BID RAJWINDER Administration Fluticasone Propionate 1 spray 04/05/22 10:45 04/06/22 08:14 Fluticasone 50mcg/[place] Nasal 16gm EA NOSTRIL 1 spray DAILY RAJWINDER Administration Gabapentin 300 mg 04/05/22 10:45 04/06/22 08:17 Gabapentin 300 Mg Cap PO 300 mg BID RAJWINDER Administration Sodium Chloride 1,000 mls @ 130 mls/hr 04/05/22 02:00 04/05/22 23:50 Saline 0.9% IV Not Given .Q7H42M [facility] Insulin Aspart 20 unit 04/06/22 07:30 04/06/22 08:13 Insuln Asp Prt/Insulin Aspart 100 Unit/Ml 10 Ml Vial SQ 20 unit AC-BRKFST [facility] Administration Isosorbide Mononitrate 30 mg 04/06/22 09:00 04/06/22 08:12 Isosorbide Mononitrate Er 30 Mg Tab.Er.24h PO 30 mg DAILY [facility] Administration Ketorolac Tromethamine 1 drops 04/05/22 21:00 04/06/22 08:14 Ketorolac 0.5% Ophth Drops 5 Ml Btl BOTH EYES 1 drops BID RAJWINDER Administration Latanoprost 1 drops 04/05/22 21:00 04/05/22 19:55 Latanoprost 0.005% Ophth Drops 2.5 Ml Btl BOTH EYES 1 drops HS RAJWINDER Administration Lisinopril 20 mg 04/05/22 10:45 04/06/22 08:17 Lisinopril 20 Mg Tab PO 20 mg BID RAJWINDER Administration Lorazepam 0.5 mg 04/05/22 10:37 Lorazepam 0.5 Mg Tab PO Q6HR PRN Anxiety Montelukast Sodium 10 mg 04/05/22 21:00 04/05/22 19:54 Montelukast 10 Mg Tab PO 10 mg HS RAJWINDER Administration Morphine Sulfate 4 mg 04/05/22 01:48 Morphine Sulfate 4 Mg/Ml Syringe IV Q4HR PRN Severe Pain Naloxone HCl 0.2 mg 04/05/22 01:48 Naloxone 0.4 Mg/Ml 1 Ml Vial IV Q2M PRN Opioid Reversal Nitroglycerin 0.4 mg 04/05/22 10:35 Nitroglycerin Sl Tabs 0.4 Mg Tab SUBLINGUAL Q5M PRN Chest Pain Ondansetron HCl 4 mg 04/05/22 01:48 Ondansetron 4 Mg/2 Ml Vial IVP Q8HR PRN Nausea And Vomiting Pantoprazole Sodium 40 mg 04/06/22 07:30 04/06/22 08:12 Pantoprazole 40 Mg Tablet PO 40 mg AC-BRKFST RAJWINDER Administration Silver Sulfadiazine 1 applic 04/05/22 10:35 Silver Sulfadiazine 1% Cream 25 Gm Tube TOPICAL DAILY PRN Wound Healing Protocol Timolol Maleate 1 drops 04/05/22 10:45 04/06/22 08:13 Timolol 0.5% Ophth Drops 5 Ml Btl BOTH EYES 1 drops BID RAJWINDER Administration Intake and Output 04/05/22 04/06/22 04/06/22 22:59 06:59 14:59 Intake Total 118 Balance 118 Intake: Oral 118 Other: # Voids 1 1 04/06/22 09:09 04/04/22 23:00
[2022-04-06 12:31] LABS: Glucose,Whole Blood 210 mg/dL (70-110)
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
--- NOTE | 2022-04-06 15:57 | CT ---
EXAMINATION TYPE: CT abdomen pelvis w con DATE OF EXAM: 04/06/2022 COMPARISON: CT dated 04/27/2020 HISTORY: lower abdominal pain CT DLP: 2040 mGycm Automated exposure control for dose reduction was used. TECHNIQUE: Helical acquisition of images was performed from the lung bases through the pelvis. CONTRAST: Performed without Oral Contrast and with IV Contrast, patient injected with 70mL mL of Isovue 300. FINDINGS: LUNG BASES: Mild peripheral pulmonary reticulations and minimal fibrotic changes. Left atrial and hugh tricular dilatation. Coronary arterial calcifications. LIVER/GB: Unremarkable liver. Suspected gallbladder sludge. PANCREAS: Fatty infiltration of the pancreas. SPLEEN: Enlarged spleen measuring 15.2 cm. No definite splenic focal lesion. ADRENALS: No significant abnormality is seen. KIDNEYS: No significant abnormality is seen. FREE AIR: No free air is visualized. RETROPERITONEAL ADENOPATHY: None visualized REPRODUCTIVE ORGANS: No significant abnormality is seen URINARY BLADDER: No significant abnormality is seen. PELVIC ADENOPATHY: None visualized. OSSEOUS STRUCTURES: Degenerative changes of the hip joints and lumbar spine. Further elective lumbar spine MRI assessment can be considered. BOWEL: Unremarkable nondistended stomach, duodenum and small bowel. Scattered uncomplicated colonic diverticulosis with segments of fecal loading of the colon. No evidence of acute diverticulitis or ac adalid colitis. OTHER: Arterial atherosclerotic calcifications. Right fat-containing inguinal hernia. IMPRESSION: Colonic diverticulosis without evidence of acute diverticulitis. Other incidental findings as describ ed above.
[2022-04-06] MEDS ORDERED: GABAPENTIN 300 MG CAP PO SCH (16:00)
--- NOTE | 2022-04-06 16:14 | P.DS ---
Providers Date of admission: 04/05/22 01:48 Expected date of discharge: 04/06/22 Attending physician: Tiburcio Curry MD Consults: 04/05/22 13:39 Consult Physician Routine Consulting Provider: Valeriano Leonard Consult Reason/Comments: interactable headach Do you want consulting provider notified?: Yes [facility] Course: History of present illness: 76-year-old gentleman with past medical history significant for nonobstructive coronary disease with multiple admissions for chest pain in the past few months. Past medical history significant for hypertension type 2 diabetes mellitus, chronic back pain and chronic lymphocytic leukemia. Patient presenting with ambulance with chief complaint of chest pain and inguinal on and off for the past 2 weeks associated with exertional dyspnea. The pain is in the left side described as someone sitting in his chest with no radiation. Patient denied any diaphoresis or nausea or vomiting. The pain was 9 out of 10 in severity for calling the ambulance. No alleviating or exacerbating factors. Patient also reports intermittent headache and he attributes that to possible sinus problem. Patient denies any visual changes. Patient denies any history of stroke. Patient denies any history of cancer. Patient denies recent travel sick contacts. He lives with his . Physical examination on discharge: General: non toxic, no distress, appears at stated age Derm: warm, dry Head: atraumatic, normocephalic, symmetric Eyes: EOMI, no lid lag, anicteric sclera Mouth: no lip lesion, mucus membranes moist Cardiovascular: S1S2 reg, no murmur, positive posterior tibial pulse bilateral, Lungs: CTA bilateral, no rhonchi, no rales , no accessory muscle use Abdominal: soft, nontender to palpation, no guarding, no appreciable organomegaly Ext: no gross muscle atrophy, no edema, no contractures Neuro: CN II-XI grossly intact, no focal neuro deficits Psych: Alert, oriented, appropriate affect Hospital course in detail the problem list #Chest pain -Acute coronary syndrome has been ruled out -Pending cardiology evaluation -EKG shows sinus bradycardia with nonspecific ST segment or T-wave changes. -Cardiology evaluated the patient and cleared the patient for discharge -Resume baby aspirin, Imdur and statins -A1c is 8.1 -LDL is 88.4 #Intractable headache for 2 months -Unclear etiology -CT of the brain without contrast unremarkable -Normal sed rate and CRP -CT sinus a few negative for acute or chronic sinusitis -Neurology recommended changing Neurontin to 300 mg 3 times a day instead of twice daily--prescription was given on discharge #Nonspecific abdominal discomfort reported by cardiology -Benign abdominal exam -Patient denies any abdominal pain to myself and RN at the bedside #History of chronic CLL #Chronic back pain with left lower extremity radiculopathy -Resume gabapentin, [place], and baclofen as needed -CT abdomen and pelvis with contrast showed colonic diverticulosis without evidence of acute diverticulitis. #Type 2 diabetes mellitus with uncontrolled hyperglycemia -Diabetic diet and sliding scale insulin -A1c is 8.1 -Follow up with primary care physician for tight glycemic control #Hypertension -Resume Norvasc and lisinopril. Patient Condition at Discharge: Stable Plan - Discharge Summary Discharge Rx Participant: No New Discharge Prescriptions: New Gabapentin [Neurontin] 300 mg PO TID #90 cap Continue Montelukast Sodium [Singulair] 10 mg PO HS Insulin NPH Hum/Reg Insulin Hm [Relion Novolin 70-30 Flexpen] 20 units SQ AC- BRKFST Fluticasone Nasal [place] [Flonase Nasal [place]] 1 spr EA NOSTRIL DAILY Atorvastatin [Lipitor] 80 mg PO HS Baclofen [Lioresal] 10 mg PO DAILY Latanoprost/Pf [Latanoprost 0.005% Eye Drop] 1 drop BOTH EYES HS ALPRAZolam [Xanax] 0.25 mg PO DAILY PRN PRN Reason: Anxiety Nitroglycerin Sl Tabs [Nitrostat] 0.4 mg SL Q5M PRN PRN Reason: Chest Pain amLODIPine [Norvasc] 5 mg PO DAILY Ketorolac 0.5% Ophth Soln [Acular 0.5%] 1 drop BOTH EYES BID HYDROcodone/APAP 5-325MG [[place] 5-325] 1 tab PO Q6HR PRN PRN Reason: Pain SILVER sulfADIAZINE CREAM [Silvadene Cream] 1 applic TOPICAL DAILY PRN PRN Reason: Wound Healing Isosorbide Mononitrate ER [Imdur] 30 mg PO DAILY #30 tab lisinopriL [Zestril] 20 mg PO BID Omeprazole 40 mg PO DAILY Aspirin 81 mg PO DAILY tab Brimonidine Tartrate/Timolol [Combigan 0.2%-0.5% Eye Drops] 1 drop BOTH EYES BID Discontinued Gabapentin 300 mg PO BID Discharge Medication List Montelukast Sodium [Singulair] 10 mg PO HS 05/25/17 [History] Insulin NPH Hum/Reg Insulin Hm [Relion Novolin 70-30 Flexpen] 20 units SQ AC- BRKFST 03/05/20 [History] Fluticasone Nasal [place] [Flonase Nasal [place]] 1 spr EA NOSTRIL DAILY 01/24/21 [History] HYDROcodone/APAP 5-325MG [[place] 5-325] 1 tab PO Q6HR PRN 01/24/21 [History] Ketorolac 0.5% Ophth Soln [Acular 0.5%] 1 drop BOTH EYES BID 01/24/21 [History] Atorvastatin [Lipitor] 80 mg PO HS 03/08/21 [History] Baclofen [Lioresal] 10 mg PO DAILY 04/18/21 [History] SILVER sulfADIAZINE CREAM [Silvadene Cream] 1 applic TOPICAL DAILY PRN 04/18/21 [History] Isosorbide Mononitrate ER [Imdur] 30 mg PO DAILY #30 tab 04/19/21 [Rx] Omeprazole 40 mg PO DAILY 07/27/21 [History] lisinopriL [Zestril] 20 mg PO BID 07/27/21 [History] Aspirin 81 mg PO DAILY tab 07/28/21 [Rx] ALPRAZolam [Xanax] 0.25 mg PO DAILY PRN 09/06/21 [History] Brimonidine Tartrate/Timolol [Combigan 0.2%-0.5% Eye Drops] 1 drop BOTH EYES BID 09/06/21 [History] Latanoprost/Pf [Latanoprost 0.005% Eye Drop] 1 drop BOTH EYES HS 09/06/21 [History] Nitroglycerin Sl Tabs [Nitrostat] 0.4 mg SL Q5M PRN 09/06/21 [History] amLODIPine [Norvasc] 5 mg PO DAILY 04/05/22 [History] Gabapentin [Neurontin] 300 mg PO TID #90 cap 04/06/22 [Rx] Follow up Appointment(s)/Referral(s): Edgard Schneider DO [Primary Care Provider] - 1-2 days Discharge Disposition: HOME SELF-CARE
[2022-04-06 16:19] VITALS: BP 142/74; PULSE 48; RESP 18; TEMP 97.9
== END 2022-04-06 16:55 | disposition home or self-care (01) ==
LOC: EC 22:50 → 6NMEDSUR 04-05 01:48
PROVIDERS: ADMIT Internal Medicine; ATTEND Internal Medicine
DX: R07.89 Other chest pain (principal); R51.9 Headache, unspecified; E11.65 Type 2 diabetes mellitus with hyperglycemia; I11.9 Hypertensive heart disease without heart failure; M79.2 Neuralgia and neuritis, unspecified; I25.10 Atherosclerotic heart disease of native coronary artery without angina pectoris; K57.30 Diverticulosis of large intestine without perforation or abscess without bleeding; C91.11 Chronic lymphocytic leukemia of B-cell type in remission; R06.09 Other forms of dyspnea; R00.1 Bradycardia, unspecified; R10.11 Right upper quadrant pain; R10.12 Left upper quadrant pain; M25.512 Pain in left shoulder; R11.0 Nausea; R61 Generalized hyperhidrosis; R00.2 Palpitations; K21.9 Gastro-esophageal reflux disease without esophagitis; D72.829 Elevated white blood cell count, unspecified; M19.042 Primary osteoarthritis, left hand; M19.041 Primary osteoarthritis, right hand; J30.2 Other seasonal allergic rhinitis; G56.01 Carpal tunnel syndrome, right upper limb; H93.13 Tinnitus, bilateral; G89.29 Other chronic pain; M54.9 Dorsalgia, unspecified; M54.10 Radiculopathy, site unspecified; Z79.4 Long term (current) use of insulin; Z79.82 Long term (current) use of aspirin; Z79.899 Other long term (current) drug therapy; Z88.0 Allergy status to penicillin; Z88.8 Allergy status to other drugs, medicaments and biological substances; Z87.828 Personal history of other (healed) physical injury and trauma; Z91.81 History of falling; Z98.890 Other specified postprocedural states; Z82.3 Family history of stroke; Z83.3 Family history of diabetes mellitus
CPT/HCPCS: 96361; 96374; 96375; 99285; 36415; 94760; 93005; 85379; 83880; 80053; 80061; 85652; 83690; 83735; 84484 ×2; 85025 ×2; 85610; 85730; 86140; 83036; 71045; 70450; 74177; 70486; G0378 ×2; J2060; J2270; J2405; Q9967

== ENCOUNTER 2022-05-13 03:48 | Observation (INO) | payer MEDICARE ==
[2022-05-13 04:44] LABS: Basophils # (A) 0.1 k/uL (0-0.2); Basophils % (A) 0 %; Eosinophils # (A) 0.1 k/uL (0-0.7); Eosinophils % (A) 0 %; HCT 38.1 % (39.0-53.0); HGB 12.7 gm/dL (13.0-17.5); Lymphocytes % (A) 81 %; MCH 31.3 pg (25.0-35.0); MCHC 33.2 g/dL (31.0-37.0); MCV 94.3 fL (80.0-100.0); Mean Platelet Volume 7.7; Monocytes # (A) 0.4 k/uL (0-1.0); Monocytes % (A) 2 %; Neutrophils # (A) 2.6 k/uL (1.3-7.7); Neutrophils % (A) 13 %; RBC 4.04 m/uL (4.30-5.90); RDW 13.6 % (11.5-15.5); WBC 20.5 k/uL (3.8-10.6)
[2022-05-13 04:45] LABS: Lymphocytes # (A) 16.6 k/uL (1.0-4.8)
[2022-05-13 04:55] LABS: ALT 18 U/L (4-49); AST 33 U/L (17-59); African American GFR (CKD) >90 (>60 ml/min/1.73 sqM); Albumin 3.7 g/dL (3.5-5.0); Alkaline Phosphatase 72 U/L (38-126); Anion Gap 4 mmol/L; Blood Urea Nitrogen 13 mg/dL (9-20); Calcium 8.5 mg/dL (8.4-10.2); Carbon Dioxide 27 mmol/L (22-30); Chloride 108 mmol/L (98-107); Glucose 123 mg/dL (74-99); Magnesium 1.8 mg/dL (1.6-2.3); Non-African American GFR(CKD) >90 (>60 ml/min/1.73 sqM); Sodium 139 mmol/L (137-145); Total Protein 5.9 g/dL (6.3-8.2)
[2022-05-13 04:57] LABS: Potassium 4.3 mmol/L (3.5-5.1)
[2022-05-13 05:01] LABS: Platelet Count 97 k/uL (150-450)
[2022-05-13 05:03] LABS: RBC Morphology Normal
--- NOTE | 2022-05-13 05:27 | XR ---
EXAMINATION TYPE: XR chest 2V DATE OF EXAM: 05/13/2022 COMPARISON: 04/04/2022 HISTORY: Chest pain TECHNIQUE: 2 view FINDINGS: There is no heart failure nor confluent pneumonic infiltrate. Costophrenic angles are clear . There are chest leads. Bony thorax is intact. IMPRESSION: No active cardiopulmonary disease. Normal heart. No adverse change.
[2022-05-13 05:31] LABS: Partial Thromboplastin Time 21.3 sec (22.0-30.0)
--- NOTE | 2022-05-13 09:26 | ED ---
Chest Pain HPI - General Chief Complaint: Chest Pain Stated Complaint: Chest Pain Time Seen by Provider: 05/13/22 04:18 Source: patient, EMS Mode of arrival: EMS Limitations: no limitations - History of Present Illness Initial Comments: This patient is a 77-year-old man who presents to have evaluation of chest pain. The pain is substernal, came on over the course the evening, and then it was relieved with nitroglycerin. Patient currently feeling better following medications. There was some dyspnea early this also resolved. MD Complaint: chest pain -: hour(s) Onset: during rest Pain Location: substernal Pain Radiation: none Severity: moderate Quality: heaviness Consistency: now resolved Improves With: nitroglycerin Worsens With: nothing Anginal Symptoms: dyspnea Treatments Prior to Arrival: aspirin, nitroglycerin - Related Data Home Medications Medication Instructions Recorded Confirmed Montelukast Sodium [Singulair] 10 mg PO HS 05/25/17 04/05/22 Insulin NPH Hum/Reg Insulin Hm 20 units SQ AC-BRKFST 03/05/20 04/05/22 [Relion Novolin 70-30 Flexpen] Fluticasone Nasal [place] [Flonase 1 spr EA NOSTRIL DAILY 01/24/21 04/05/22 Nasal [place]] HYDROcodone/APAP 5-325MG [[place] 1 tab PO Q6HR PRN 01/24/21 04/05/22 5-325] Ketorolac 0.5% Ophth Soln [Acular 1 drop BOTH EYES BID 01/24/21 04/05/22 0.5%] Atorvastatin [Lipitor] 80 mg PO HS 03/08/21 04/05/22 Baclofen [Lioresal] 10 mg PO DAILY 04/18/21 04/05/22 SILVER sulfADIAZINE CREAM 1 applic TOPICAL DAILY PRN 04/18/21 04/05/22 [Silvadene Cream] Omeprazole 40 mg PO DAILY 07/27/21 04/05/22 lisinopriL [Zestril] 20 mg PO BID 07/27/21 04/05/22 ALPRAZolam [Xanax] 0.25 mg PO DAILY PRN 09/06/21 04/05/22 Brimonidine Tartrate/Timolol 1 drop BOTH EYES BID 09/06/21 04/05/22 [Combigan 0.2%-0.5% Eye Drops] Latanoprost/Pf [Latanoprost 0.005% 1 drop BOTH EYES HS 09/06/21 04/05/22 Eye Drop] Nitroglycerin Sl Tabs [Nitrostat] 0.4 mg SL Q5M PRN 09/06/21 04/05/22 amLODIPine [Norvasc] 5 mg PO DAILY 04/05/22 04/05/22 Previous Rx's Medication Instructions Recorded Isosorbide Mononitrate ER [Imdur] 30 mg PO DAILY #30 tab 04/19/21 Aspirin 81 mg PO DAILY tab 07/28/21 Gabapentin [Neurontin] 300 mg PO TID #90 cap 04/06/22 Allergies Allergy/AdvReac Type Severity Reaction Status Date / Time amoxicillin [From Augmentin] Allergy Rash/Hives Verified 04/05/22 07:52 clavulanic acid Allergy Rash/Hives Verified 04/05/22 07:52 [From Augmentin] Review of Systems ROS Statement: Those systems with pertinent positive or pertinent negative responses have been documented in the HPI. ROS Other: All systems not noted in ROS Statement are negative. Constitutional: Denies: fever, chills Respiratory: Reports: dyspnea. Denies: cough Cardiovascular: Reports: chest pain. Denies: palpitations, orthopnea, edema, syncope Gastrointestinal: Denies: abdominal pain, nausea, vomiting, diarrhea Genitourinary: Denies: dysuria, hematuria Musculoskeletal: Denies: back pain Skin: Denies: rash Neurological: Denies: headache, weakness, numbness EKG Findings - EKG Results: EKG: interpreted by ERMD, sinus rhythm (With PVC, rate 60 bpm), normal axis - Blocks, [place], Hypertrophy, ST Abn: AV and intraventricular conduction: intraventricular conduction delay Repolarization changes or abnormalities: nonspecific abnormality, ST segment, and/or T wave Past Medical History Past Medical History: Coronary Artery Disease (CAD), Cancer, Diabetes Mellitus, GERD/Reflux, Hypertension, Osteoarthritis (OA) Additional Past Medical History / Comment(s): NIDDM type II, 1998 LEUKEMIA (CLL- remission), sinus problems, seasonal allergies, tinnitis bilaterally, OA hands, R wrist carpal tunnel, past fx with L elbow, R rotator cuff tendon problems, L rotator cuff tear, left knee pain History of Any Multi-Drug Resistant Organisms: None Reported Past Surgical History: Heart Catheterization, Orthopedic Surgery Additional Past Surgical History / Comment(s): LEFT HAND thumb tendon repair. L knee surgery. Past Anesthesia/Blood Transfusion Reactions: No Reported Reaction Past Psychological History: No Psychological Hx Reported Smoking Status: Never smoker Past Alcohol Use History: None Reported Past Drug Use History: None Reported - Past Family History Father Family Medical History: CVA/TIA Additional Family Medical History / Comment(s): Father at the age of 85yrs. Mother Family Medical History: Diabetes Mellitus Additional Family Medical History / Comment(s): Mother at the age of 90yrs. General Exam Limitations: no limitations General appearance: alert, in no apparent distress Head exam: Present: atraumatic, normocephalic Eye exam: Present: normal appearance. Absent: scleral icterus, conjunctival injection Neck exam: Present: normal inspection Respiratory exam: Present: normal lung sounds bilaterally. Absent: respiratory distress, wheezes, rales, rhonchi, stridor, chest wall tenderness Cardiovascular Exam: Present: regular rate, normal rhythm, normal heart sounds. Absent: systolic murmur, diastolic murmur, rubs, gallop GI/Abdominal exam: Present: soft. Absent: distended, tenderness, guarding, rebound, rigid, mass Extremities exam: Present: normal inspection, normal capillary refill. Absent: pedal edema, calf tenderness Back exam: Present: normal inspection. Absent: CVA tenderness (R), CVA tenderness (L) Neurological exam: Present: alert Skin exam: Present: warm, dry, intact, normal color. Absent: rash Course Vital Signs 05/13/22 05/13/22 05/13/22 04:03 05:57 08:13 Temperature 98.3 F 97.8 F Pulse Rate 72 64 52 L Respiratory 16 16 19 Rate Blood Pressure 150/90 149/71 179/83 O2 Sat by Pulse 96 95 97 Oximetry Chest Pain MDM - [facility] Patient 77-year-old man with history of CLL who had episode of chest pain relieved with nitroglycerin. Given that the pain improve with nitroglycerin will admit for serial cardiac enzymes and telemetry monitoring. The patient did have recent cardiac cath not showing severe lesion. Disposition Clinical Impression: Chest pain Disposition: ADMITTED IP TO THIS HOSP Condition: Good Instructions (If sedation given, give patient instructions): Chest Pain (ED) Is patient prescribed a controlled substance at d/c from ED?: No Referrals: Edgard Schneider DO [Primary Care Provider] - 1-2 days
[2022-05-13 10:16] LABS: Appearance,Urine Clear (Clear); Bilirubin,Urine Negative (Negative); Blood,Urine Negative (Negative); Color,Urine Light Yellow; Glucose,Urine (UA) Trace (Negative); Ketones,Urine Negative (Negative); Leukocyte Esterase,Urine Negative (Negative); Nitrite,Urine Negative (Negative); PH, Urine 6.5 (5.0-8.0); Protein,Urine Negative (Negative); Specific Gravity,Urine 1.008 (1.001-1.035); Urobilinogen,Urine <2.0 mg/dL (<2.0)
[2022-05-13] MEDS: NITROGLYCERIN SL TABS 0.4 MG TAB SUBLINGUAL PRN ×2 (11:13→11:18)
[2022-05-13] MEDS ORDERED: ALPRAZolam 0.25 MG TAB PO PRN (11:37)
[2022-05-13] MEDS: HYDROcodone/APAP 5-325MG 1 EACH TAB PO PRN ×2 (13:36→21:10)
--- NOTE | 2022-05-13 16:05 | P.HPIM ---
History of Present Illness H&P Date: 05/13/22 Chief Complaint: CHest pain Chief complaint, Chest pain History of present illness: 77-year-old male with nonobstructive coronary artery disease with multiple admi ssions with chest pain. Type 2 diabetes. Chronic back pain. Chronic lymphocytic leukemia this time also presents with atypical chest pain. The patient describes his chest pain in the mid chest radiating to his left arm and to his jaw. The pain is reproducible by pressing on the chest. Denied nausea, vomiting or abdominal pain or diaphoresis. Denied palpitations. Denies shortness of breath. He stated that the chest pain has been getting worse for the last 2 days. He stated that at night he felt that somebody threw a rock on his abdomen/chest. In the ED, his initial blood work revealed evidence of leukocytosis which he had chronically due to history of leukemia. His D dimers are negative. His UA is negative. Troponin normal. EKG without ischemic changes. Chest x-ray without acute cardiopulmonary changes. The patient is admitted to observation with cardiology consultation. Past Medical History Past Medical History: Coronary Artery Disease (CAD), Cancer, Diabetes Mellitus, GERD/Reflux, Hypertension, Osteoarthritis (OA) Additional Past Medical History / Comment(s): NIDDM type II, 1999 LEUKEMIA (CLL- remission), sinus problems, seasonal allergies, tinnitis bilaterally, OA hands, R wrist carpal tunnel, past fx with L elbow, R rotator cuff tendon problems, L rotator cuff tear, left knee pain History of Any Multi-Drug Resistant Organisms: None Reported Past Surgical History: Heart Catheterization, Orthopedic Surgery Additional Past Surgical History / Comment(s): LEFT HAND thumb tendon repair. L knee surgery. Past Anesthesia/Blood Transfusion Reactions: No Reported Reaction Past Psychological History: No Psychological Hx Reported Additional Psychological History / Comment(s): Pt resides with his spouse. He is independent. He ambulates with a cane. He drives. Smoking Status: Never smoker Past Alcohol Use History: None Reported Past Drug Use History: None Reported Additional Drug Use History / Comment(s): Occasional marijuana - Past Family History Father Family Medical History: CVA/TIA Additional Family Medical History / Comment(s): Father at the age of 85yrs. Mother Family Medical History: Diabetes Mellitus Additional Family Medical History / Comment(s): Mother at the age of 90yrs. Medications and Allergies Home Medications Medication Instructions Recorded Confirmed Type Montelukast Sodium [Singulair] 10 mg PO HS 05/25/17 05/13/22 History Insulin NPH Hum/Reg Insulin Hm 20 units SQ AC-BRKFST 03/05/20 05/13/22 History [Relion Novolin 70-30 Flexpen] Fluticasone Nasal [place] [Flonase 1 spr EA NOSTRIL DAILY 01/24/21 05/13/22 History Nasal [place]] HYDROcodone/APAP 5-325MG [[place] 1 tab PO Q6HR PRN 01/24/21 05/13/22 History 5-325] Ketorolac 0.5% Ophth Soln [Acular 1 drop BOTH EYES BID 01/24/21 05/13/22 History 0.5%] Atorvastatin [Lipitor] 80 mg PO HS 03/08/21 05/13/22 History Baclofen [Lioresal] 10 mg PO DAILY 04/18/21 05/13/22 History SILVER sulfADIAZINE CREAM 1 applic TOPICAL DAILY PRN 04/18/21 05/13/22 History [Silvadene Cream] Isosorbide Mononitrate ER [Imdur] 30 mg PO DAILY #30 tab 04/19/21 05/13/22 Rx Omeprazole 40 mg PO DAILY 07/27/21 05/13/22 History lisinopriL [Zestril] 20 mg PO BID 07/27/21 05/13/22 History Aspirin 81 mg PO DAILY tab 07/28/21 05/13/22 Rx ALPRAZolam [Xanax] 0.25 mg PO DAILY PRN 09/06/21 05/13/22 History Brimonidine Tartrate/Timolol 1 drop BOTH EYES BID 09/06/21 05/13/22 History [Combigan 0.2%-0.5% Eye Drops] Latanoprost/Pf [Latanoprost 0.005% 1 drop BOTH EYES HS 09/06/21 05/13/22 History Eye Drop] Nitroglycerin Sl Tabs [Nitrostat] 0.4 mg SL Q5M PRN 09/06/21 05/13/22 History amLODIPine [Norvasc] 5 mg PO DAILY 04/05/22 05/13/22 History Gabapentin [Neurontin] 300 mg PO TID #90 cap 04/06/22 05/13/22 Rx Allergies Allergy/AdvReac Type Severity Reaction Status Date / Time amoxicillin [From Augmentin] Allergy Rash/Hives Verified 05/13/22 11:05 clavulanic acid Allergy Rash/Hives Verified 05/13/22 11:05 [From Augmentin] Physical Exam Vitals: Vital Signs Temp Pulse Pulse Resp BP BP Pulse Ox 05/13/22 15:00 97.7 F 63 17 185/79 97 05/13/22 13:50 50 L 18 144/65 95 05/13/22 11:19 64 146/71 05/13/22 11:13 98.4 F 51 L 18 177/78 95 05/13/22 08:13 52 L 19 179/83 97 05/13/22 05:57 97.8 F 64 16 149/71 95 05/13/22 04:03 98.3 F 72 16 150/90 96 Intake and Output 05/13/22 05/13/22 05/13/22 06:59 14:59 22:59 Other: Weight 97.522 kg 97.522 kg Constitutional: No acute distress, conversant, pleasant Eyes: Anicteric sclerae, moist conjunctiva, no lid-lag PERRLA ENMT: NC/AT Oropharynx clear, no erythema, exudates Neck: Supple, FROM, no masses, or JVD No carotid bruits No thyromegaly Lungs: Clear to auscultation Clear to percussion Normal respiratory effort, no accessory muscle use Cardiovascular: Chest pain is reproducible by pressing on the chest. Heart regular in rate and rhythm, No murmurs, gallops, or rubs No peripheral edema Abdominal: Soft Nontender, no guarding, rebound or rigidity Abdomen moving with respiration Normoactive bowel sounds No hepatomegaly, No splenomegaly No palpable mass No abdominal wall hernia noted Skin: Normal temperature, tone, texture, turgor No induration No subcutaneous nodules No rash, lesions No ulcers Extremities: No digital cyanosis No clubbing Pedal pulses intact and symmetrical Radial pulses intact and symmetrical Normal gait and station No calf tenderness Psychiatric: Alert and oriented to person, place and time Appropriate affect Intact judgement Neuro: Muscles Strength 5/5 in all 4 extremities Sensation to light touch grossly present throughout Cranial nerves II-XII grossly intact No focal sensory deficits Results CBC & Chem 7: 05/13/22 04:33 05/13/22 04:33 Labs: Abnormal Lab Results - Last 24 Hours (Table) 05/13/22 05/13/22 05/13/22 Range/Units 04:33 04:33 04:33 WBC 20.5 H (3.8-10.6) k/uL RBC 4.04 L (4.30-5.90) m/uL Hgb 12.7 L (13.0-17.5) gm/dL Hct 38.1 L (39.0-53.0) % Plt Count 97 L (150-450) k/uL Lymphocytes # 16.6 H (1.0-4.8) k/uL APTT 21.3 L (22.0-30.0) sec Chloride 108 H (98-107) mmol/L Glucose 123 H (74-99) mg/dL Total Protein 5.9 L (6.3-8.2) g/dL Urine Glucose (UA) (Negative) 05/13/22 Range/Units 09:36 WBC (3.8-10.6) k/uL RBC (4.30-5.90) m/uL Hgb (13.0-17.5) gm/dL Hct (39.0-53.0) % Plt Count (150-450) k/uL Lymphocytes # (1.0-4.8) k/uL APTT (22.0-30.0) sec Chloride (98-107) mmol/L Glucose (74-99) mg/dL Total Protein (6.3-8.2) g/dL Urine Glucose (UA) Trace H (Negative) Thrombosis Risk Factor Assmnt - Choose All That Apply Each Risk Factor Represents 3 Points: Age 75 years or older Thrombosis Risk Factor Assessment Total Risk Factor Score: 3 Thrombosis Risk Factor Assessment Level: Moderate Risk Assessment and Plan Plan: Assessment and plan: 77-year-old male with history of hypertension, diabetes2, history of CLL who presented to the hospital with atypical chest pain Atypical chest pain. Likely musculoskeletal. reproducible by pressure. 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 Most likely his pain is musculoskeletal given the nature and description of the pain and also clinical examination. History of chronic CLL with lymphocytosis Chronic. Continue to monitor Chronic lower back pain, continue gabapentin, [place] and baclofen. Type 2 diabetes mellitus Sliding scale Hypertension. Continue Norvasc and lisinopril DVT ppx: SCD
[2022-05-13] MEDS: GABAPENTIN 300 MG CAP PO SCH ×2 (16:20→21:10)
[2022-05-13 17:13] LABS: Glucose,Whole Blood 305 mg/dL (70-110)
[2022-05-13] MEDS ORDERED: DEXTROSE 50% SYRINGE 50 ML IVP PRN ×2 (17:32)
[2022-05-13] MEDS: INSULIN ASPART (NovoLOG) 100 UNIT/ML VIAL SQ SCH ×2 (18:04→21:11)
[2022-05-13] MEDS ORDERED: NON FORMULARY DRUG (Brimonidine Tartrate/Timolol [Combigan 0.2%-0.5% Eye Drops] 5 ML Ml) BOTH EYES SCH (21:00)
[2022-05-13 21:04] LABS: Glucose,Whole Blood 161 mg/dL (70-110)
[2022-05-13] MEDS: lisinopriL 20 MG TAB PO SCH (21:11)
[2022-05-13] MEDS: MONTELUKAST 10 MG TAB PO SCH (21:11)
[2022-05-13] MEDS: ATORVASTATIN 80 MG TAB PO SCH (21:11)
[2022-05-13] MEDS: TIMOLOL 0.5% OPHTH DROPS 5 ML BTL BOTH EYES SCH (21:12)
[2022-05-13] MEDS: LATANOPROST 0.005% OPHTH DROPS 2.5 ML BTL BOTH EYES SCH (21:12)
[2022-05-13] MEDS: BRIMONIDINE TARTRATE 0.2% DROPS 5 ML BTL BOTH EYES SCH (21:12)
[2022-05-13] MEDS: KETOROLAC 0.5% OPHTH DROPS 5 ML BTL BOTH EYES SCH (21:12)
[2022-05-14] MEDS: HYDROcodone/APAP 5-325MG 1 EACH TAB PO PRN ×2 (03:20→20:55)
[2022-05-14 07:40] LABS: Glucose,Whole Blood 171 mg/dL (70-110)
[2022-05-14] MEDS: INSULIN ASPART (NovoLOG) 100 UNIT/ML VIAL SQ SCH ×4 (08:31→20:56)
[2022-05-14] MEDS: ASPIRIN 81 MG PO SCH (08:31)
[2022-05-14] MEDS: GABAPENTIN 300 MG CAP PO SCH ×3 (08:31→20:55)
[2022-05-14] MEDS: PANTOPRAZOLE 40 MG TABLET PO SCH (08:31)
[2022-05-14] MEDS: lisinopriL 20 MG TAB PO SCH ×2 (08:31→20:55)
[2022-05-14] MEDS: FLUTICASONE 50MCG/SPRAY NASAL 16GM EA NOSTRIL SCH (08:32)
[2022-05-14] MEDS: BRIMONIDINE TARTRATE 0.2% DROPS 5 ML BTL BOTH EYES SCH ×2 (08:32→20:56)
[2022-05-14] MEDS: TIMOLOL 0.5% OPHTH DROPS 5 ML BTL BOTH EYES SCH ×2 (08:33→20:56)
[2022-05-14] MEDS: KETOROLAC 0.5% OPHTH DROPS 5 ML BTL BOTH EYES SCH ×2 (08:33→20:57)
[2022-05-14] MEDS ORDERED: ASPIRIN 325 MG TAB PO SCH (09:00)
[2022-05-14] MEDS ORDERED: amLODIPine 5 MG TAB PO SCH (09:00)
[2022-05-14] MEDS ORDERED: amLODIPine 5 MG TAB PO STA (09:07)
--- NOTE | 2022-05-14 09:11 | P.CRDCN ---
History of Present Illness Consult date: 05/14/22 Chief complaint: Chest discomfort History of present illness: The patient is a pleasant 77-year-old gentleman who is known to our service from before with a past medical history significant for known intermediate nonobstructive coronary artery disease based on heart catheterization in 2020 as well as hypertension and dyslipidemia and preserved left ventricular systolic function on the most recent echo presented to the hospital complaining of chest discomfort. As a matter of fact he presented because he has not been feeding well. He has been experiencing chest discomfort for the last 24 hour appeared to be very atypical for angina. The discomfort is sharp on the left side of the chest at one spot only with no radiation andCT symptoms. More importantly his pressure has been elevated at home as well as in the hospital. The blood pr essure seems to be consistent with hypertension emergency. His systolic pressure above 1 80 mmHg. The patient states clearly that he has been compliant with his medications but has not been compliant with his diet. I had a long discussion with him about the importance of the low-sodium diet and to be compliant with the diet to get the pressure under control. Beside that he describes no shortness of breath and no dizziness or lightheadedness and no feeling of heart racing or fluttering and no presyncope or syncope. The EKG showed sinus rhythm without any significant ST or T-wave abnormalities. The blood work came in to be unremarkable in terms off troponin Past Medical History Past Medical History: Coronary Artery Disease (CAD), Cancer, Diabetes Mellitus, GERD/Reflux, Hypertension, Osteoarthritis (OA) Additional Past Medical History / Comment(s): NIDDM type II, 1999 LEUKEMIA (CLL- remission), sinus problems, seasonal allergies, tinnitis bilaterally, OA hands, R wrist carpal tunnel, past fx with L elbow, R rotator cuff tendon problems, L rotator cuff tear, left knee pain History of Any Multi-Drug Resistant Organisms: None Reported Past Surgical History: Heart Catheterization, Orthopedic Surgery Additional Past Surgical History / Comment(s): LEFT HAND thumb tendon repair. L knee surgery. Past Anesthesia/Blood Transfusion Reactions: No Reported Reaction Past Psychological History: No Psychological Hx Reported Additional Psychological History / Comment(s): Pt resides with his spouse. He is independent. He ambulates with a cane. He drives. Smoking Status: Never smoker Past Alcohol Use History: None Reported Past Drug Use History: None Reported Additional Drug Use History / Comment(s): Occasional marijuana - Past Family History Father Family Medical History: CVA/TIA Additional Family Medical History / Comment(s): Father at the age of 85yrs. Mother Family Medical History: Diabetes Mellitus Additional Family Medical History / Comment(s): Mother at the age of 90yrs. Medications and Allergies Home Medications Medication Instructions Recorded Confirmed Type Montelukast Sodium [Singulair] 10 mg PO HS 05/25/17 05/13/22 History Insulin NPH Hum/Reg Insulin Hm 20 units SQ AC-BRKFST 03/05/20 05/13/22 History [Relion Novolin 70-30 Flexpen] Fluticasone Nasal [place] [Flonase 1 spr EA NOSTRIL DAILY 01/24/21 05/13/22 History Nasal [place]] HYDROcodone/APAP 5-325MG [[place] 1 tab PO Q6HR PRN 01/24/21 05/13/22 History 5-325] Ketorolac 0.5% Ophth Soln [Acular 1 drop BOTH EYES BID 01/24/21 05/13/22 History 0.5%] Atorvastatin [Lipitor] 80 mg PO HS 03/08/21 05/13/22 History Baclofen [Lioresal] 10 mg PO DAILY 04/18/21 05/13/22 History SILVER sulfADIAZINE CREAM 1 applic TOPICAL DAILY PRN 04/18/21 05/13/22 History [Silvadene Cream] Isosorbide Mononitrate ER [Imdur] 30 mg PO DAILY #30 tab 04/19/21 05/13/22 Rx Omeprazole 40 mg PO DAILY 07/27/21 05/13/22 History lisinopriL [Zestril] 20 mg PO BID 07/27/21 05/13/22 History Aspirin 81 mg PO DAILY tab 07/28/21 05/13/22 Rx ALPRAZolam [Xanax] 0.25 mg PO DAILY PRN 09/06/21 05/13/22 History Brimonidine Tartrate/Timolol 1 drop BOTH EYES BID 09/06/21 05/13/22 History [Combigan 0.2%-0.5% Eye Drops] Latanoprost/Pf [Latanoprost 0.005% 1 drop BOTH EYES HS 09/06/21 05/13/22 History Eye Drop] Nitroglycerin Sl Tabs [Nitrostat] 0.4 mg SL Q5M PRN 09/06/21 05/13/22 History amLODIPine [Norvasc] 5 mg PO DAILY 04/05/22 05/13/22 History Gabapentin [Neurontin] 300 mg PO TID #90 cap 04/06/22 05/13/22 Rx Allergies Allergy/AdvReac Type Severity Reaction Status Date / Time amoxicillin [From Augmentin] Allergy Rash/Hives Verified 05/13/22 11:05 clavulanic acid Allergy Rash/Hives Verified 05/13/22 11:05 [From Augmentin] Physical Exam Vitals: Vital Signs Temp Pulse Pulse Resp BP BP Pulse Ox 05/14/22 08:08 99 05/14/22 07:00 98.0 F 54 L 16 194/75 99 05/14/22 02:15 97.5 F L 19 158/71 99 05/13/22 18:55 98.6 F 52 L 17 166/66 99 05/13/22 15:00 97.7 F 63 17 185/79 97 05/13/22 13:50 50 L 18 144/65 95 05/13/22 11:19 64 146/71 05/13/22 11:13 98.4 F 51 L 18 177/78 95 Intake and Output 05/13/22 05/14/22 05/14/22 22:59 06:59 14:59 Other: Voiding Method Toilet Toilet # Voids 1 3 - Constitutional General appearance: no acute distress - Respiratory Respiratory: bilateral: CTA - Cardiovascular Rhythm: regular Heart sounds: normal: S1, S2 Abnormal Heart Sounds: systolic murmur Results 05/13/22 04:33 05/13/22 04:33 Cardiac Enzymes 05/13/22 05/13/22 Range/Units 11:59 15:52 Troponin I <0.012 <0.012 (0.000-0.034) ng/mL Current Medications Generic Name Dose Route Start Last Admin Trade Name Freq PRN Reason Stop Dose Admin Hydrocodone Bitart/Acetaminophen 1 each 05/13/22 11:37 05/14/22 03:20 Hydrocodone/Apap 5-325mg 1 Each Tab PO 1 each Q6HR PRN Administration Pain Alprazolam 0.25 mg 05/13/22 11:37 Alprazolam 0.25 Mg Tab PO DAILY PRN Anxiety Amlodipine Besylate 10 mg 05/15/22 09:00 Amlodipine 10 Mg Tab PO DAILY RAJWINDER Amlodipine Besylate 5 mg 05/14/22 09:07 Amlodipine 5 Mg Tab PO 05/14/22 09:08 ONCE STA Aspirin 81 mg 05/14/22 09:00 05/14/22 08:31 Aspirin 81 Mg PO 81 mg DAILY RAJWINDER Administration Atorvastatin Calcium 80 mg 05/13/22 21:00 05/13/22 21:11 Atorvastatin 80 Mg Tab PO 80 mg HS RAJWINDER Administration Brimonidine Tartrate 1 drops 05/13/22 21:00 05/14/22 08:32 Brimonidine Tartrate 0.2% Drops 5 Ml Btl BOTH EYES 1 drops BID RAJWINDER Administration Dextrose/Water 25 ml 05/13/22 17:32 Dextrose 50% Syringe 50 Ml IVP PER PROTOCOL PRN Hypoglycemia Protocol Dextrose/Water 50 ml 05/13/22 17:32 Dextrose 50% Syringe 50 Ml IVP PER PROTOCOL PRN Hypoglycemia Protocol Fluticasone Propionate 1 spray 05/14/22 09:00 05/14/22 08:32 Fluticasone 50mcg/[place] Nasal 16gm EA NOSTRIL 1 spray DAILY RAJWINDER Administration Gabapentin 300 mg 05/13/22 16:00 05/14/22 08:31 Gabapentin 300 Mg Cap PO 300 mg TID RAJWINDER Administration Insulin Aspart 0 unit 05/13/22 17:34 05/14/22 08:31 Insulin Aspart (Novolog) 100 Unit/Ml Vial SQ 2 unit ACHS RAJWINDER Administration Protocol Ketorolac Tromethamine 1 drops 05/13/22 21:00 05/14/22 08:33 Ketorolac 0.5% Ophth Drops 5 Ml Btl BOTH EYES 1 drops BID RAJWINDER Administration Latanoprost 1 drops 05/13/22 21:00 05/13/22 21:12 Latanoprost 0.005% Ophth Drops 2.5 Ml Btl BOTH EYES 1 drops HS RAJWINDER Administration Lisinopril 20 mg 05/13/22 21:00 05/14/22 08:31 Lisinopril 20 Mg Tab PO 20 mg BID RAJWINDER Administration Montelukast Sodium 10 mg 05/13/22 21:00 05/13/22 21:11 Montelukast 10 Mg Tab PO 10 mg HS RAJWINDER Administration Nitroglycerin 0.4 mg 05/13/22 10:51 05/13/22 11:18 Nitroglycerin Sl Tabs 0.4 Mg Tab SUBLINGUAL 0.4 mg Q5M PRN Administration Chest Pain Pantoprazole Sodium 40 mg 05/14/22 09:00 05/14/22 08:31 Pantoprazole 40 Mg Tablet PO 40 mg DAILY RAJWINDER Administration Timolol Maleate 1 drops 05/13/22 21:00 05/14/22 08:33 Timolol 0.5% Ophth Drops 5 Ml Btl BOTH EYES 1 drops BID RAJWINDER Administration Intake and Output 05/13/22 05/14/22 05/14/22 22:59 06:59 14:59 Other: Voiding Method Toilet Toilet # Voids 1 3 05/13/22 04:33 05/13/22 04:33 Assessment and Plan Assessment: Assessment #1 hypertension emergency #2 patient is compliant with medication but noncompliant with diet #3 chest discomfort secondary to hypertension emergency #4 known intermediate nonobstructive CAD based on recent heart catheterization #5 multiple comorbid conditions Plan #1 acute coronary event was ruled out #2 increase the dose of amlodipine #3 consider adding diuretics. I added chlorthalidone #4 monitor the patient for additional 24-hour
[2022-05-14] MEDS: CHLORTHALIDONE 25 MG TAB PO SCH (09:56)
[2022-05-14 10:43] LABS: Chol/HDL Ratio 4.62 Ratio; LDL Cholesterol,Calculated 90.8 mg/dL (0.0-131.0)
[2022-05-14 12:14] LABS: Glucose,Whole Blood 240 mg/dL (70-110)
--- NOTE | 2022-05-14 14:06 | P.PN ---
Subjective Progress Note Date: 05/14/22 Principal diagnosis: dizzy Patient stated that he feels little dizzy . Chest pain improving. no events overnight Objective - Vital Signs Vital signs: Vital Signs Temp 98.0 F 05/14/22 07:00 Pulse 54 L 05/14/22 07:00 Resp 16 05/14/22 07:00 BP 141/62 05/14/22 12:28 Pulse Ox 99 05/14/22 08:08 FiO2 Intake & Output 05/13/22 05/14/22 05/14/22 18:59 06:59 18:59 Weight 97.522 kg Other: Voiding Method Toilet # Voids 3 - Exam Gen: A&OX 3 NAD Chest: NSR, No mumrus. CP reproducible by pressure Lungs CTAB No rales or wheezing Abd; Soft, NT , ND Skin Warm and dry - Labs CBC & Chem 7: 05/13/22 04:33 05/13/22 04:33 Labs: Abnormal Lab Results - Last 24 Hours (Table) 05/13/22 05/13/22 05/13/22 Range/Units 17:12 20:58 21:02 POC Glucose (mg/dL) 305 H 161 H (70-110) mg/dL Hemoglobin A1c 8.1 H (0.0-6.0) % HDL Cholesterol (40.00-60.00) mg/dL 05/14/22 05/14/22 05/14/22 Range/Units 05:06 07:39 12:13 POC Glucose (mg/dL) 171 H 240 H (70-110) mg/dL Hemoglobin A1c (0.0-6.0) % HDL Cholesterol 31.20 L (40.00-60.00) mg/dL Assessment and Plan Plan: 77-year-old male with history of hypertension, diabetes2, history of CLL who pre sented to the hospital with atypical chest pain Atypical chest pain. Likely musculoskeletal. reproducible by pressure. 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 If BP improves. DC tomorrow to home History of chronic CLL with lymphocytosis Chronic. Continue to monitor Chronic lower back pain, continue gabapentin, [place] and baclofen. Type 2 diabetes mellitus Sliding scale Hypertension. Continue Norvasc and lisinopril DVT ppx: SCD Time with Patient: Greater than 30
[2022-05-14 17:16] LABS: Glucose,Whole Blood 157 mg/dL (70-110)
[2022-05-14 20:27] LABS: Glucose,Whole Blood 286 mg/dL (70-110)
[2022-05-14] MEDS: MONTELUKAST 10 MG TAB PO SCH (20:56)
[2022-05-14] MEDS: ATORVASTATIN 80 MG TAB PO SCH (20:56)
[2022-05-14] MEDS: LATANOPROST 0.005% OPHTH DROPS 2.5 ML BTL BOTH EYES SCH (20:57)
[2022-05-15] MEDS: HYDROcodone/APAP 5-325MG 1 EACH TAB PO PRN (02:49)
[2022-05-15 07:03] LABS: Glucose,Whole Blood 238 mg/dL (70-110)
[2022-05-15] MEDS: INSULIN ASPART (NovoLOG) 100 UNIT/ML VIAL SQ SCH ×2 (08:05→13:04)
[2022-05-15] MEDS: CHLORTHALIDONE 25 MG TAB PO SCH (08:06)
[2022-05-15] MEDS: lisinopriL 20 MG TAB PO SCH (08:06)
[2022-05-15] MEDS: FLUTICASONE 50MCG/SPRAY NASAL 16GM EA NOSTRIL SCH (08:06)
[2022-05-15] MEDS: ASPIRIN 81 MG PO SCH (08:06)
[2022-05-15] MEDS: PANTOPRAZOLE 40 MG TABLET PO SCH (08:06)
[2022-05-15] MEDS: GABAPENTIN 300 MG CAP PO SCH ×2 (08:06→15:17)
[2022-05-15] MEDS: KETOROLAC 0.5% OPHTH DROPS 5 ML BTL BOTH EYES SCH (08:07)
[2022-05-15] MEDS: TIMOLOL 0.5% OPHTH DROPS 5 ML BTL BOTH EYES SCH (08:07)
[2022-05-15] MEDS: BRIMONIDINE TARTRATE 0.2% DROPS 5 ML BTL BOTH EYES SCH (08:07)
[2022-05-15] MEDS ORDERED: amLODIPine 10 MG TAB PO SCH (09:00)
--- NOTE | 2022-05-15 09:08 | P.PN ---
Subjective The patient is a pleasant 77-year-old gentleman, with a past medical history of known intermediate nonobstructive coronary artery disease based on heart catheterization in 2020, hypertension, type 2 diabetes, dyslipidemia and preserved left ventricular systolic function on the most recent echo presented to the hospital complaining of chest discomfort. He follows in the office with Dr. Macdonald. We have been asked to see in consultation for chest pain, acute coronary syndrome has ruled out. More importantly his pressure has been elevated at home as well as in the hospital. The blood pressure seems to be consistent with hypertension emergency. His systolic pressure was above 180 mmHg. The EKG showed sinus rhythm without any significant ST or T-wave abnormalities, troponin negative x 3. Patient seen and examined at bedside, no acute distress. No chest pain or shortness of breath. Endorses some mild abdominal pain. BP has improved. BP 1 26/59, heart rate 46, afebrile, oxygen saturation is 96% on room air. Meds: Amlodipine 10 mg daily, aspirin 81 mg daily, atorvastatin 80 mg nightly, lisinopril 20 mg twice a day, chlorthalidone 25 mg daily GENERAL: Well-appearing, well-nourished and in no acute distress. NECK: Supple without JVD or thyromegaly. LUNGS: Breath sounds clear to auscultation bilaterally. Respiration equal and unlabored. No wheezes, rales or rhonchi. HEART: Regular rate and rhythm with systolic ejection murmur. S1 and S2 heard. EXTREMITIES: Normal range of motion, no edema. No clubbing or cyanosis. Peripheral pulses intact. ASSESSMENT Hypertension emergency, improved, patient is noncompliant with his diet Chest discomfort secondary to hypertensive emergency known intermediate nonobstructive coronary artery disease based on heart catheterization in 2020 Hypertension Dyslipidemia Type 2 diabetes PLAN Continue current medication regimen, BP is improved. Patient's symptoms improved. From a cardiology perspective patient can be discharged home follow up with Dr. Macdonald as an outpatient. Nurse Practitioner note has been reviewed, I agree with a documented findings and plan of care. Patient was seen and examined. Objective - Vital Signs Vital signs: Vital Signs Temp 97.6 F 05/15/22 07:00 Pulse 46 L 05/15/22 07:00 Resp 20 05/15/22 07:00 BP 126/59 05/15/22 07:00 Pulse Ox 96 05/15/22 07:00 FiO2 Intake & Output 05/14/22 05/15/22 05/15/22 18:59 06:59 18:59 Intake Total 118 Balance 118 Intake: Oral 118 Other: Voiding Method Toilet # Voids 4 2 - Labs CBC & Chem 7: 05/13/22 04:33 05/13/22 04:33 Labs: Abnormal Lab Results - Last 24 Hours (Table) 05/13/22 05/14/22 05/14/22 Range/Units 20:58 05:06 12:13 POC Glucose (mg/dL) 240 H (70-110) mg/dL Hemoglobin A1c 8.1 H (0.0-6.0) % HDL Cholesterol 31.20 L (40.00-60.00) mg/dL 05/14/22 05/14/22 05/15/22 Range/Units 17:12 20:26 07:02 POC Glucose (mg/dL) 157 H 286 H 238 H (70-110) mg/dL Hemoglobin A1c (0.0-6.0) % HDL Cholesterol (40.00-60.00) mg/dL
[2022-05-15 11:46] LABS: Glucose,Whole Blood 273 mg/dL (70-110)
[2022-05-15 13:25] VITALS: BP 137/76; PULSE 49; RESP 18; TEMP 97.8
--- NOTE | 2022-05-15 14:46 | P.DS ---
Providers Date of admission: 05/13/22 10:52 Expected date of discharge: 05/15/22 Attending physician: Chinedu Wilkins MD Consults: 05/13/22 10:52 Consult Physician Routine Consulting Provider: Waldemar Macdonald Consult Reason/Comments: chest pain Do you want consulting provider notified?: Yes Primary care physician: [facility] Course: 77-year-old male with nonobstructive coronary artery disease with multiple admissions with chest pain. Type 2 diabetes. Chronic back pain. Chronic lymphocytic leukemia this time also presents with atypical chest pain. The patient describes his chest pain in the mid chest radiating to his left arm and to his jaw. Patient was evaluated by cardiology. Recommended to titrate his blood pressure medications as his chest pain could be attributed to hypertensive urgency. His Norvasc was increased to 10 mg. Chlorthalidone was added. Patient's symptoms improved significantly. Blood pressure also improved. The patient was worked up on an admission for ACS and it was negative. No EKG changes. Troponin negative. Also the patient described the producible chest pain. Could be related to musculoskeletal chest pain. The patient will be discharged home today in improved condition. His medications were reconciled and the new medications he was given a prescription for those. The patient plan of care was discussed extensively and is agreeable. He will follow up with his PCP and cardiology as an outpatient he already has an appointment scheduled with cardiology. Assessment: Atypical chest pain Hypertensive urgency causing chest pain Improved. Blood pressure improved significantly. Chlorthalidone 25 mg added. Norvasc increased to 10 mg daily. The patient will be discharged home today and to follow-up with his primary care and also with cardiology. No further changes with his home medications. Patient Condition at Discharge: Good Plan - Discharge Summary Discharge Rx Participant: No New Discharge Prescriptions: New Chlorthalidone [Hygroton] 25 mg PO DAILY #90 tab amLODIPine [Norvasc] 10 mg PO DAILY #90 tab Timolol 0.5% Ophth Soln [Timoptic 0.5% Ophth Soln] 1 drops BOTH EYES BID ml Nitroglycerin Sl Tabs [Nitrostat] 0.4 mg SUBLINGUAL Q5M PRN tab PRN Reason: Chest Pain Continue Montelukast Sodium [Singulair] 10 mg PO HS Insulin NPH Hum/Reg Insulin Hm [[place]ion Novolin 70-30 Flexpen] 20 units SQ AC- BRKFST Fluticasone Nasal [place] [Flonase Nasal [place]] 1 spr EA NOSTRIL DAILY Atorvastatin [Lipitor] 80 mg PO HS Baclofen [Lioresal] 10 mg PO DAILY Latanoprost/Pf [Latanoprost 0.005% Eye Drop] 1 drop BOTH EYES HS ALPRAZolam [Xanax] 0.25 mg PO DAILY PRN PRN Reason: Anxiety Nitroglycerin Sl Tabs [Nitrostat] 0.4 mg SL Q5M PRN PRN Reason: Chest Pain Gabapentin [Neurontin] 300 mg PO TID #90 cap Ketorolac 0.5% Ophth Soln [Acular 0.5%] 1 drop BOTH EYES BID HYDROcodone/APAP 5-325MG [[place] 5-325] 1 tab PO Q6HR PRN PRN Reason: Pain SILVER sulfADIAZINE CREAM [Silvadene Cream] 1 applic TOPICAL DAILY PRN PRN Reason: Wound Healing Isosorbide Mononitrate ER [Imdur] 30 mg PO DAILY #30 tab lisinopriL [Zestril] 20 mg PO BID Omeprazole 40 mg PO DAILY Aspirin 81 mg PO DAILY tab Brimonidine Tartrate/Timolol [Combigan 0.2%-0.5% Eye Drops] 1 drop BOTH EYES BID Discontinued amLODIPine [Norvasc] 5 mg PO DAILY Discharge Medication List Montelukast Sodium [Singulair] 10 mg PO HS 05/25/17 [History] Insulin NPH Hum/Reg Insulin Hm [[place] Novolin 70-30 Flexpen] 20 units SQ AC- BRKFST 03/05/20 [History] Fluticasone Nasal [place] [Flonase Nasal [place]] 1 spr EA NOSTRIL DAILY 01/24/21 [History] HYDROcodone/APAP 5-325MG [[place] 5-325] 1 tab PO Q6HR PRN 01/24/21 [History] Ketorolac 0.5% Ophth Soln [Acular 0.5%] 1 drop BOTH EYES BID 01/24/21 [History] Atorvastatin [Lipitor] 80 mg PO HS 03/08/21 [History] Baclofen [Lioresal] 10 mg PO DAILY 04/18/21 [History] SILVER sulfADIAZINE CREAM [Silvadene Cream] 1 applic TOPICAL DAILY PRN 04/18/21 [History] Isosorbide Mononitrate ER [Imdur] 30 mg PO DAILY #30 tab 04/19/21 [Rx] Omeprazole 40 mg PO DAILY 07/27/21 [History] lisinopriL [Zestril] 20 mg PO BID 07/27/21 [History] Aspirin 81 mg PO DAILY tab 07/28/21 [Rx] ALPRAZolam [Xanax] 0.25 mg PO DAILY PRN 09/06/21 [History] Brimonidine Tartrate/Timolol [[place] 0.2%-0.5% Eye Drops] 1 drop BOTH EYES BID 09/06/21 [History] Latanoprost/Pf [Latanoprost 0.005% Eye Drop] 1 drop BOTH EYES HS 09/06/21 [History] Nitroglycerin Sl Tabs [Nitrostat] 0.4 mg SL Q5M PRN 09/06/21 [History] Gabapentin [Neurontin] 300 mg PO TID #90 cap 04/06/22 [Rx] Chlorthalidone [Hygroton] 25 mg PO DAILY #90 tab 05/15/22 [Rx] Nitroglycerin Sl Tabs [Nitrostat] 0.4 mg SUBLINGUAL Q5M PRN tab 05/15/22 [Rx] Timolol 0.5% Ophth Soln [Tim[place] 0.5% Ophth Soln] 1 drops BOTH EYES BID ml 05/15/22 [Rx] amLODIPine [Norvasc] 10 mg PO DAILY #90 tab 05/15/22 [Rx] Follow up Appointment(s)/Referral(s): Waldemar Macdonald MD [STAFF PHYSICIAN] - 2 Weeks Edgard Scnheider DO [Primary Care Provider] - 1-2 days Patient Instructions/Handouts: Chest Pain (ED), Low-Sodium Diet (GEN), Mediterranean Diet (GEN) Discharge Disposition: HOME SELF-CARE
== END 2022-05-15 15:38 | disposition home or self-care (01) ==
LOC: EC 03:48 → 6NMEDSUR 10:52
PROVIDERS: ADMIT Family Medicine; ATTEND Family Medicine
DX: I16.1 Hypertensive emergency (principal); E11.9 Type 2 diabetes mellitus without complications; I10 Essential (primary) hypertension; I25.10 Atherosclerotic heart disease of native coronary artery without angina pectoris; K21.9 Gastro-esophageal reflux disease without esophagitis; M19.041 Primary osteoarthritis, right hand; M19.042 Primary osteoarthritis, left hand; J30.2 Other seasonal allergic rhinitis; F12.90 Cannabis use, unspecified, uncomplicated; M54.50 Low back pain, unspecified; G89.29 Other chronic pain; E78.5 Hyperlipidemia, unspecified; Z85.6 Personal history of leukemia; Z79.899 Other long term (current) drug therapy; Z79.4 Long term (current) use of insulin; Z79.82 Long term (current) use of aspirin; Z82.3 Family history of stroke; Z83.3 Family history of diabetes mellitus; Z91.11 Patient's noncompliance with dietary regimen
CPT/HCPCS: 99285; 36415; 93005; 85379; 83880; 80061; 80053; 83735; 84484; 85025; 85610; 85730; 81003; 83036; 71046; G0378 ×3

== ENCOUNTER 2022-09-14 01:52 | Inpatient (IN) | payer MEDICARE ==
[2022-09-14] MEDS ORDERED: IBUPROFEN 800 MG TAB PO STA (02:41)
[2022-09-14] MEDS ORDERED: ONDANSETRON 4 MG/2 ML VIAL IVP STA (02:41)
[2022-09-14] MEDS ORDERED: SODIUM CHLORIDE 0.9% 1,000 ML IV STA (02:41)
[2022-09-14] MEDS ORDERED: ACETAMINOPHEN TAB 500 MG TAB PO STA (02:41)
--- NOTE | 2022-09-14 02:58 | ED ---
Weakness HPI - General Chief complaint: Weakness Stated complaint: Weakness Time Seen by Provider: 09/14/22 02:20 Source: EMS, RN notes reviewed, old records reviewed, Caregiver Mode of arrival: EMS Limitations: no limitations - History of Present Illness Initial comments: This is a 76-year-old male mildly poor story and multiple medical complications including CO leukemia. Patient coming in for evaluation of fever fever not feeling well weakness and to hydration difficulty with ambulation and movement. Patient was just discharged hospital 2 days ago supposedly working on and home nursing care inpatient treatment plan. Patient has no headache chest pain shortness breath or abdominal pain currently MD Complaint: generalized weakness, lack of energy, difficulty walking -: days(s) Location: generalized Severity: severe Severity scale (1-10): 9 Quality: tingling, numbness, aching Consistency: constant Context: history of similar Associated Symptoms: confusion, nausea/vomiting - Related Data Home Medications Medication Instructions Recorded Confirmed Montelukast Sodium [Singulair] 10 mg PO HS 05/25/17 05/13/22 Insulin NPH Hum/Reg Insulin Hm 20 units SQ AC-BRKFST 03/05/20 05/13/22 [Relion Novolin 70-30 Flexpen] Fluticasone Nasal [place] [Flonase 1 spr EA NOSTRIL DAILY 01/24/21 05/13/22 Nasal [place]] HYDROcodone/APAP 5-325MG [[place] 1 tab PO Q6HR PRN 01/24/21 05/13/22 5-325] Ketorolac 0.5% Ophth Soln [Acular 1 drop BOTH EYES BID 01/24/21 05/13/22 0.5%] Atorvastatin [Lipitor] 80 mg PO HS 03/08/21 05/13/22 Baclofen [Lioresal] 10 mg PO DAILY 04/18/21 05/13/22 SILVER sulfADIAZINE CREAM 1 applic TOPICAL DAILY PRN 04/18/21 05/13/22 [Silvadene Cream] Omeprazole 40 mg PO DAILY 07/27/21 05/13/22 lisinopriL [Zestril] 20 mg PO BID 07/27/21 05/13/22 ALPRAZolam [Xanax] 0.25 mg PO DAILY PRN 09/06/21 05/13/22 Brimonidine Tartrate/Timolol 1 drop BOTH EYES BID 09/06/21 05/13/22 [Combigan 0.2%-0.5% Eye Drops] Latanoprost/Pf [Latanoprost 0.005% 1 drop BOTH EYES HS 09/06/21 05/13/22 Eye Drop] Nitroglycerin Sl Tabs [Nitrostat] 0.4 mg SL Q5M PRN 09/06/21 05/13/22 Previous Rx's Medication Instructions Recorded Isosorbide Mononitrate ER [Imdur] 30 mg PO DAILY #30 tab 04/19/21 Aspirin 81 mg PO DAILY tab 07/28/21 Gabapentin [Neurontin] 300 mg PO TID #90 cap 04/06/22 Chlorthalidone [Hygroton] 25 mg PO DAILY #90 tab 05/15/22 Nitroglycerin Sl Tabs [Nitrostat] 0.4 mg SUBLINGUAL Q5M PRN tab 05/15/22 Timolol 0.5% Ophth Soln [Timoptic 1 drops BOTH EYES BID ml 05/15/22 0.5% Ophth Soln] amLODIPine [Norvasc] 10 mg PO DAILY #90 tab 05/15/22 Allergies Allergy/AdvReac Type Severity Reaction Status Date / Time amoxicillin [From Augmentin] Allergy Rash/Hives Verified 05/13/22 11:05 clavulanic acid Allergy Rash/Hives Verified 05/13/22 11:05 [From Augmentin] Review of Systems ROS Statement: Those systems with pertinent positive or pertinent negative responses have been documented in the HPI. ROS Other: All systems not noted in ROS Statement are negative. Past Medical History Past Medical History: Coronary Artery Disease (CAD), Cancer, Diabetes Mellitus, GERD/Reflux, Hypertension, Osteoarthritis (OA) Additional Past Medical History / Comment(s): NIDDM type II, 1999 LEUKEMIA (CLL- remission), sinus problems, seasonal allergies, tinnitis bilaterally, OA hands, R wrist carpal tunnel, past fx with L elbow, R rotator cuff tendon problems, L rotator cuff tear, left knee pain History of Any Multi-Drug Resistant Organisms: None Reported Past Surgical History: Heart Catheterization, Orthopedic Surgery Additional Past Surgical History / Comment(s): LEFT HAND thumb tendon repair. L knee surgery. Past Anesthesia/Blood Transfusion Reactions: No Reported Reaction Past Psychological History: No Psychological Hx Reported Smoking Status: Never smoker Past Alcohol Use History: None Reported Past Drug Use History: None Reported - Past Family History Father Family Medical History: CVA/TIA Additional Family Medical History / Comment(s): Father at the age of 85yrs. Mother Family Medical History: Diabetes Mellitus Additional Family Medical History / Comment(s): Mother at the age of 90yrs. General Exam Limitations: no limitations, altered mental status General appearance: alert, in no apparent distress, anxious, obese Head exam: Present: atraumatic, normocephalic, normal inspection Eye exam: Present: normal appearance, PERRL, EOMI. Absent: scleral icterus, conjunctival injection, periorbital swelling ENT exam: Present: normal exam, mucous membranes dry Neck exam: Present: normal inspection. Absent: tenderness, meningismus, lymphadenopathy Respiratory exam: Present: normal lung sounds bilaterally, accessory muscle use. Absent: respiratory distress, wheezes, rales, rhonchi, stridor Cardiovascular Exam: Present: regular rate, normal rhythm, normal heart sounds. Absent: systolic murmur, diastolic murmur, rubs, gallop, clicks GI/Abdominal exam: Present: soft, normal bowel sounds. Absent: distended, tende rness, guarding, rebound, rigid Extremities exam: Present: normal inspection, full ROM, normal capillary refill. Absent: tenderness, pedal edema, joint swelling, calf tenderness Back exam: Present: normal inspection Neurological exam: Present: alert, oriented X3, CN II-XII intact Psychiatric exam: Present: normal affect, normal mood Skin exam: Present: warm, dry, intact, normal color. Absent: rash Course Vital Signs 09/14/22 01:56 Temperature 102 F H Pulse Rate 84 Respiratory 16 Rate Blood Pressure 140/71 O2 Sat by Pulse 96 Oximetry - Reevaluation(s) Reevaluation #1: 09/14/22 06:01 Medical record is reviewed Reevaluation #2: 09/14/22 06:01 Patient still feels coming here in the ER very weak Reevaluation #3: 09/14/22 06:01 Patient informed results and questions answered - Consultations Consultation #1: Spoke with sound agrees to admit this patient EKG Findings - EKG Comments: EKG Findings:: EKG interpreted by me sinus 87 ND 199 QRS 94 QTC 372 Medical Decision Making - Lab Data Result diagrams: 09/14/22 02:43 09/14/22 02:43 Lab Results 09/14/22 09/14/22 09/14/22 Range/Units 02:43 02:43 02:43 WBC 26.5 H (3.8-10.6) k/uL RBC 4.46 (4.30-5.90) m/uL Hgb 14.1 (13.0-17.5) gm/dL Hct 40.7 (39.0-53.0) % MCV 91.2 (80.0-100.0) fL MCH 31.6 (25.0-35.0) pg MCHC 34.6 (31.0-37.0) g/dL RDW 13.5 (11.5-15.5) % Plt Count 101 L (150-450) k/uL MPV 8.7 Neutrophils % (Manual) 10 % Lymphocytes % (Manual) 90 % Neutrophils # (Manual) 2.65 (1.3-7.7) k/uL Lymphocytes # (Manual) 23.85 H (1.0-4.8) k/uL Nucleated RBCs 0 (0-0) /100 WBC Differential Comment Manual Slide Review Performed PT 11.9 (9.0-12.0) sec INR 1.1 (<1.2) APTT 23.7 (22.0-30.0) sec Sodium 137 (137-145) mmol/L Potassium 4.1 (3.5-5.1) mmol/L Chloride 104 (98-107) mmol/L Carbon Dioxide 22 (22-30) mmol/L Anion Gap 11 mmol/L BUN 21 H (9-20) mg/dL Creatinine 1.04 (0.66-1.25) mg/dL Est GFR (CKD-EPI)AfAm 81 (>60 ml/min/1.73 sqM) Est GFR (CKD-EPI)NonAf 70 (>60 ml/min/1.73 sqM) Glucose 138 H (74-99) mg/dL Plasma Lactic Acid [place] (0.7-2.0) mmol/L Calcium 9.0 (8.4-10.2) mg/dL Phosphorus 3.1 (2.5-4.5) mg/dL Magnesium 1.7 (1.6-2.3) mg/dL Total Bilirubin 1.5 H (0.2-1.3) mg/dL AST 28 (17-59) U/L ALT 23 (4-49) U/L Alkaline Phosphatase 105 (38-126) U/L Troponin I (0.000-0.034) ng/mL Total Protein 6.7 (6.3-8.2) g/dL Albumin 4.4 (3.5-5.0) g/dL Influenza Type A RNA (Not Detectd) Influenza Type B (PCR) (Not Detectd) 09/14/22 09/14/22 09/14/22 Range/Units 02:43 02:43 02:51 WBC (3.8-10.6) k/uL RBC (4.30-5.90) m/uL Hgb (13.0-17.5) gm/dL Hct (39.0-53.0) % MCV (80.0-100.0) fL MCH (25.0-35.0) pg MCHC (31.0-37.0) g/dL RDW (11.5-15.5) % Plt Count (150-450) k/uL MPV Neutrophils % (Manual) % Lymphocytes % (Manual) % Neutrophils # (Manual) (1.3-7.7) k/uL Lymphocytes # (Manual) (1.0-4.8) k/uL Nucleated RBCs (0-0) /100 WBC Differential Comment Manual Slide Review PT (9.0-12.0) sec INR (<1.2) APTT (22.0-30.0) sec Sodium (137-145) mmol/L Potassium (3.5-5.1) mmol/L Chloride (98-107) mmol/L Carbon Dioxide (22-30) mmol/L Anion Gap mmol/L BUN (9-20) mg/dL Creatinine (0.66-1.25) mg/dL Est GFR (CKD-EPI)AfAm (>60 ml/min/1.73 sqM) Est GFR (CKD-EPI)NonAf (>60 ml/min/1.73 sqM) Glucose (74-99) mg/dL Plasma Lactic Acid [place] 1.4 (0.7-2.0) mmol/L Calcium (8.4-10.2) mg/dL Phosphorus (2.5-4.5) mg/dL Magnesium (1.6-2.3) mg/dL Total Bilirubin (0.2-1.3) mg/dL AST (17-59) U/L ALT (4-49) U/L Alkaline Phosphatase (38-126) U/L Troponin I 0.018 (0.000-0.034) ng/mL Total Protein (6.3-8.2) g/dL Albumin (3.5-5.0) g/dL Influenza Type A RNA Not Detected (Not Detectd) Influenza Type B (PCR) Not Detected (Not Detectd) Disposition Clinical Impression: Fall, Dehydration, Weakness, Fever Disposition: ADMITTED IP TO THIS HOSP Condition: Fair Is patient prescribed a controlled substance at d/c from ED?: No Referrals: Edgard Schneider DO [Primary Care Provider] - 1-2 days Time of Disposition: 06:00
[2022-09-14 03:28] LABS: HCT 40.7 % (39.0-53.0); HGB 14.1 gm/dL (13.0-17.5); MCH 31.6 pg (25.0-35.0); MCHC 34.6 g/dL (31.0-37.0); MCV 91.2 fL (80.0-100.0); Mean Platelet Volume 8.7; Platelet Count 101 k/uL (150-450); RBC 4.46 m/uL (4.30-5.90); RDW 13.5 % (11.5-15.5); WBC 26.5 k/uL (3.8-10.6)
[2022-09-14 03:33] LABS: INR 1.1 (<1.2); Partial Thromboplastin Time 23.7 sec (22.0-30.0); Prothrombin Time 11.9 sec (9.0-12.0)
[2022-09-14 03:37] LABS: Albumin 4.4 g/dL (3.5-5.0); Magnesium 1.7 mg/dL (1.6-2.3); Phosphorus 3.1 mg/dL (2.5-4.5); Potassium 4.1 mmol/L (3.5-5.1); Total Bilirubin 1.5 mg/dL (0.2-1.3); Total Protein 6.7 g/dL (6.3-8.2)
--- NOTE | 2022-09-14 03:37 | XR ---
EXAMINATION TYPE: XR chest 1V portable DATE OF EXAM: 09/14/2022 COMPARISON: 05/13/2022 HISTORY: Weakness TECHNIQUE: Single view FINDINGS: There is no heart failure nor confluent pneumonic infiltrate. Costophrenic angles are clear . There are no hilar masses. There are chest leads. IMPRESSION: No active cardiopulmonary disease. Normal heart. No change.
[2022-09-14 03:48] LABS: Lymphocytes # (M) 23.85 k/uL (1.0-4.8); Neutrophils # (M) 2.65 k/uL (1.3-7.7); Neutrophils % (M) 10 %; Nucleated Red Blood Cells 0 /100 WBC (0-0); Total Cells Counted 100
[2022-09-14] MEDS ORDERED: MORPHINE SULFATE 4 MG/ML SYRINGE IV PRN (05:57)
[2022-09-14] MEDS ORDERED: ONDANSETRON 4 MG/2 ML VIAL IVP PRN (05:57)
[2022-09-14] MEDS ORDERED: NALOXONE 0.4 MG/ML 1 ML VIAL IV PRN (05:57)
[2022-09-14] MEDS: SODIUM CHLORIDE 0.9% 1,000 ML IV SCH (06:12)
[2022-09-14 10:55] LABS: Appearance,Urine Clear (Clear); Bilirubin,Urine Negative (Negative); Blood,Urine Negative (Negative); Color,Urine Yellow; Glucose,Urine (UA) Trace (Negative); Ketones,Urine Trace (Negative); Leukocyte Esterase,Urine Negative (Negative); Nitrite,Urine Negative (Negative); PH, Urine 5.5 (5.0-8.0); Protein,Urine Trace (Negative); Specific Gravity,Urine 1.021 (1.001-1.035); Urobilinogen,Urine <2.0 mg/dL (<2.0)
[2022-09-14] MEDS: HYDROcodone/APAP 5-325MG 1 EACH TAB PO PRN ×2 (13:42→21:30)
[2022-09-14] MEDS ORDERED: DEXTROSE 50% SYRINGE 50 ML IVP PRN ×2 (15:49)
--- NOTE | 2022-09-14 15:49 | P.HPIM ---
History of Present Illness H&P Date: 09/14/22 Patient is 76-year-old male with PMH of CLL, CAD, diabetes mellitus, GERD, hypertension presents ED for generalized weakness. Patient reports weakness that has been ongoing for the past 2 days. He has had difficulty getting out of bed. He reports a dry cough. Today, he has had 3 episodes of diarrhea. He has taken a course of antibiotics for sinusitis without much relief. He reports myalgias in his bilateral lower extremities. He denies any headache, lower extremity edema, nausea or vomiting, fever or chills, chest pain, shortness of breath, palpitations or changes in urination. No changes in appetite or weight. He denies any dizziness, numbness/weakness/tingling of the extremities. He has not been vaccinated for COVID-19. Patient was noted to have a fever of 102 Fahrenheit in the ED. Vital signs are otherwise stable. CBC showed WBC count of 26.5 lymphocytic predominant and platelet count 101. INR was 1.1. CMP showed BUN of 21, glucose 138, total bilirubin 1.5. Troponin was 0.018, EKG showing sinus rhythm. Urinalysis showed trace ketones, protein and glucose. Influenza and RSV negative. COVID-19 positive. Chest x-ray was negative. Patient is admitted for generalized weakness and PTOT evaluation. Pertinent positives and negatives as discussed in HPI, a complete review of systems was performed and all other systems are negative. General: non toxic, no distress, appears at stated age Derm: warm, dry Head: atraumatic, normocephalic, symmetric Eyes: EOMI, no lid lag, anicteric sclera Mouth: no lip lesion, mucus membranes moist Cardiovascular: S1S2 reg, no murmur, positive posterior tibial pulse bilateral, Lungs: CTA bilateral, no rhonchi, no rales , no accessory muscle use Abdominal: soft, nontender to palpation, no guarding, no appreciable organomegaly Ext: no gross muscle atrophy, no edema, no contractures Neuro: CN II-XI grossly intact, no focal neuro deficits Psych: Alert, oriented, appropriate affect #Generalized weakness and debility PT and OT will be consulted to work with this patient. Patient will be placed on fall precautions. #COVID-19 Patient is not requiring any supplemental oxygen. Obtain inflammatory labs including d-dimer, ferritin and LDH. No indication for antibiotics. #Leukocytosis, lymphocytic predominant likely related to CLL Appears at baseline. Continue to monitor. #Obesity Patient will benefit from a structured weight loss program. Chronic conditions: CAD, diabetes mellitus, GERD, hypertension, peripheral neuropathy Restart aspirin, Lipitor. Low-dose insulin sliding scale, Accu-Cheks before meals at bedtime, hypoglycemic precautions. Restart Protonix. Restart chlorthalidone, Imdur, lisinopril. Monitor vitals, adjust medication if necessary. Restart gabapentin. DVT prophylaxis: Heparin Discussed with: Patient Anticipated discharge: 2-[address]: [facility] versus home with home health A total of 35 minutes was spent on the care of this complex patient more than 50% of the time was spent in counseling and care coordination. Patient names his decision maker if he can't make decisions for himself. Patient would like to be full code. Past Medical History Past Medical History: Coronary Artery Disease (CAD), Cancer, Diabetes Mellitus, GERD/Reflux, Hypertension, Osteoarthritis (OA) Additional Past Medical History / Comment(s): NIDDM type II, 1999 LEUKEMIA (CLL- remission), sinus problems, seasonal allergies, tinnitis bilaterally, OA hands, R wrist carpal tunnel, past fx with L elbow, R rotator cuff tendon problems, L rotator cuff tear, left knee pain History of Any Multi-Drug Resistant Organisms: None Reported Past Surgical History: Heart Catheterization, Orthopedic Surgery Additional Past Surgical History / Comment(s): LEFT HAND thumb tendon repair. L knee surgery. Past Anesthesia/Blood Transfusion Reactions: No Reported Reaction Past Psychological History: No Psychological Hx Reported Additional Psychological History / Comment(s): Pt resides with his spouse. He is independent. He ambulates with a cane. He drives. Smoking Status: Never smoker Past Alcohol Use History: None Reported Past Drug Use History: None Reported Additional Drug Use History / Comment(s): Occasional marijuana - Past Family History Father Family Medical History: CVA/TIA Additional Family Medical History / Comment(s): Father at the age of 85yrs. Mother Family Medical History: Diabetes Mellitus Additional Family Medical History / Comment(s): Mother at the age of 90yrs. Medications and Allergies Home Medications Medication Instructions Recorded Confirmed Type Montelukast Sodium [Singulair] 10 mg PO HS 05/25/17 09/14/22 History Fluticasone Nasal [place] [Flonase 2 spr EA NOSTRIL DAILY 01/24/21 09/14/22 History Nasal [place]] HYDROcodone/APAP 5-325MG [[place] 1 tab PO Q6HR PRN 01/24/21 09/14/22 History 5-325] Atorvastatin [Lipitor] 80 mg PO HS 03/08/21 09/14/22 History Baclofen [Lioresal] 10 mg PO DAILY 04/18/21 09/14/22 History SILVER sulfADIAZINE CREAM 1 applic TOPICAL BID 04/18/21 09/14/22 History [Silvadene Cream] Isosorbide Mononitrate ER [Imdur] 30 mg PO DAILY #30 tab 04/19/21 09/14/22 Rx Omeprazole 40 mg PO DAILY 07/27/21 09/14/22 History lisinopriL [Zestril] 20 mg PO BID 07/27/21 09/14/22 History ALPRAZolam [Xanax] 0.25 mg PO DAILY PRN 09/06/21 09/14/22 History Brimonidine Tartrate/Timolol 1 drop BOTH EYES BID 09/06/21 09/14/22 History [Combigan 0.2%-0.5% Eye Drops] Latanoprost/Pf [Latanoprost 0.005% 1 drop BOTH EYES HS 09/06/21 09/14/22 History Eye Drop] Gabapentin [Neurontin] 300 mg PO TID #90 cap 04/06/22 09/14/22 Rx Chlorthalidone [Hygroton] 25 mg PO DAILY #90 tab 05/15/22 09/14/22 Rx Nitroglycerin Sl Tabs [Nitrostat] 0.4 mg SUBLINGUAL Q5M PRN tab 05/15/22 09/14/22 Rx Aspirin EC [Ecotrin Low Dose] 81 mg PO DAILY 09/14/22 09/14/22 History Doxycycline Monohydrate 100 mg PO BID 09/14/22 09/14/22 History Insulin Aspart Prot/Insuln Asp 15 units SQ HS 09/14/22 09/14/22 History [Relion Novolog Mix 70-30 Vial] Insulin Aspart Prot/Insuln Asp 22 units SQ QAM 09/14/22 09/14/22 History [Relion Novolog Mix 70-30 Vial] Meclizine [Antivert] 25 mg PO TID 09/14/22 09/14/22 History Allergies Allergy/AdvReac Type Severity Reaction Status Date / Time amoxicillin [From Augmentin] Allergy Rash/Hives Verified 09/14/22 08:51 clavulanic acid Allergy Rash/Hives Verified 09/14/22 08:51 [From Augmentin] Physical Exam Vitals: Vital Signs Temp Pulse Pulse Resp BP BP Pulse Ox 09/14/22 13:10 97.6 F 58 L 18 168/71 96 09/14/22 08:00 19 09/14/22 06:01 97.8 F 62 19 101/68 100 09/14/22 01:56 102 F H 84 16 140/71 96 Intake and Output 09/14/22 09/14/22 09/14/22 06:59 14:59 22:59 Intake Total 118 Balance 118 Intake: Oral 118 Other: Voiding Method Urinal # Bowel Movements 1 Weight 98.883 kg 98.883 kg Results CBC & Chem 7: 09/14/22 02:43 09/14/22 02:43 Labs: Abnormal Lab Results - Last 24 Hours (Table) 09/14/22 09/14/22 09/14/22 Range/Units 02:43 02:43 10:11 WBC 26.5 H (3.8-10.6) k/uL Plt Count 101 L (150-450) k/uL Lymphocytes # (Manual) 23.85 H (1.0-4.8) k/uL BUN 21 H (9-20) mg/dL Glucose 138 H (74-99) mg/dL Total Bilirubin 1.5 H (0.2-1.3) mg/dL Urine Protein (Negative) Urine Glucose (UA) (Negative) Urine Ketones (Negative) Coronavirus (PCR) Detected A (Not Detectd) 09/14/22 Range/Units 10:26 WBC (3.8-10.6) k/uL Plt Count (150-450) k/uL Lymphocytes # (Manual) (1.0-4.8) k/uL BUN (9-20) mg/dL Glucose (74-99) mg/dL Total Bilirubin (0.2-1.3) mg/dL Urine Protein Trace H (Negative) Urine Glucose (UA) Trace H (Negative) Urine Ketones Trace H (Negative) Coronavirus (PCR) (Not Detectd) Thrombosis Risk Factor Assmnt - Choose All That Apply Any of the Below Risk Factors Present?: Yes Each Factor Represents 1 point: Obesity (BMI >25) Each Risk Factor Represents 3 Points: Age 75 years or older Thrombosis Risk Factor Assessment Total Risk Factor Score: 4 Thrombosis Risk Factor Assessment Level: Moderate Risk
[2022-09-14] MEDS: GABAPENTIN 300 MG CAP PO SCH ×2 (16:19→20:53)
[2022-09-14 16:39] LABS: Glucose,Whole Blood 163 mg/dL (70-110)
[2022-09-14] MEDS: INSULIN ASPART (NovoLOG) 100 UNIT/ML VIAL SQ SCH ×2 (16:51→20:52)
[2022-09-14 20:18] LABS: Glucose,Whole Blood 186 mg/dL (70-110)
[2022-09-14] MEDS: MONTELUKAST 10 MG TAB PO SCH (20:53)
[2022-09-14] MEDS: lisinopriL 20 MG TAB PO SCH (20:53)
[2022-09-14] MEDS: HEPARIN SODIUM,PORCINE/PF 5,000 UNIT/0.5 ML SYRINGE SQ SCH (20:53)
[2022-09-14] MEDS: ATORVASTATIN 80 MG TAB PO SCH (20:53)
[2022-09-14] MEDS: LATANOPROST 0.005% OPHTH DROPS 2.5 ML BTL BOTH EYES SCH (21:38)
[2022-09-14] MEDS: TIMOLOL 0.5% OPHTH DROPS 5 ML BTL BOTH EYES SCH (21:38)
[2022-09-14] MEDS: BRIMONIDINE TARTRATE 0.2% DROPS 5 ML BTL BOTH EYES SCH (21:38)
[2022-09-15] MEDS: ACETAMINOPHEN TAB 325 MG TAB PO PRN (01:24)
[2022-09-15] MEDS: HYDROcodone/APAP 5-325MG 1 EACH TAB PO PRN (04:19)
[2022-09-15] MEDS: SODIUM CHLORIDE 0.9% 1,000 ML IV SCH ×2 (06:17→12:43)
[2022-09-15 06:30] LABS: Glucose,Whole Blood 212 mg/dL (70-110)
[2022-09-15] MEDS: PANTOPRAZOLE 40 MG TABLET PO SCH (06:55)
[2022-09-15] MEDS: INSULIN ASPART (NovoLOG) 100 UNIT/ML VIAL SQ SCH ×4 (06:55→22:31)
[2022-09-15] MEDS: ISOSORBIDE MONONITRATE ER 30 MG TAB.ER.24H PO SCH (10:00)
[2022-09-15] MEDS: GABAPENTIN 300 MG CAP PO SCH ×3 (10:00→22:26)
[2022-09-15] MEDS: ASPIRIN 81 MG PO SCH (10:00)
[2022-09-15] MEDS: CHLORTHALIDONE 25 MG TAB PO SCH (10:00)
[2022-09-15] MEDS: lisinopriL 20 MG TAB PO SCH ×2 (10:00→22:23)
[2022-09-15] MEDS: TIMOLOL 0.5% OPHTH DROPS 5 ML BTL BOTH EYES SCH ×2 (10:01→22:28)
[2022-09-15] MEDS: BRIMONIDINE TARTRATE 0.2% DROPS 5 ML BTL BOTH EYES SCH ×2 (10:01→22:27)
[2022-09-15] MEDS: HEPARIN SODIUM,PORCINE/PF 5,000 UNIT/0.5 ML SYRINGE SQ SCH ×2 (10:03→22:27)
[2022-09-15 11:05] LABS: African American GFR (CKD) 75.7 (60.0-200.0); Albumin 4.2 g/dL (3.8-4.9); Albumin/Globulin Ratio 2.33 (1.60-3.17); Anion Gap 16.4 mmol/L (10.00-18.00); BUN/Creat Ratio 18.82 Ratio (12.00-20.00); Blood Urea Nitrogen 20.7 mg/dL (9.0-27.0); Calcium 8.7 mg/dL (8.7-10.3); Carbon Dioxide 20.6 mmol/L (20.0-27.5); Globulin 1.8 g/dL (1.6-3.3); Magnesium 1.7 mg/dL (1.5-2.4); Non-African American GFR(CKD) 65.3 (60.0-200.0); Potassium 3.6 mmol/L (3.5-5.5); Total Bilirubin 0.7 mg/dL (0.30-1.20)
[2022-09-15 11:45] LABS: Basophils # (A) 0.06 X 10*3/uL (0.00-0.10); Basophils % (A) 0.2 %; Eosinophils # (A) 0.13 X 10*3/uL (0.04-0.35); Eosinophils % (A) 0.5 %; HCT 41.7 % (39.6-50.0); HGB 14.1 g/dL (13.0-17.0); Immature Grans, Automated 0.2 %; Lymphocytes # (A) 21.79 X 10*3/uL (0.90-5.00); Lymphocytes % (A) 82.7 %; MCH 31.9 pg (27.0-32.0); MCHC 33.8 g/dL (32.0-37.0); MCV 94.3 fL (80.0-97.0); Mean Platelet Volume 11.4 fL (9.5-12.2); Monocytes % (A) 3.4 %; NRBC Per 100 WBC 0.1 /100 WBCS (0.0-0.0); Neutrophils # (A) 3.42 X 10*3/uL (1.80-7.70); Platelet Count 89 X 10*3/uL (140-440); RBC 4.42 X 10*6/uL (4.40-5.60); RDW 13.4 % (11.5-14.5); WBC 26.35 X 10*3/uL (4.50-10.00)
[2022-09-15 11:46] LABS: RBC Morphology NORMAL
[2022-09-15 11:58] LABS: Glucose,Whole Blood 231 mg/dL (70-110)
--- NOTE | 2022-09-15 12:57 | P.PN ---
Subjective Progress Note Date: 09/15/22 Principal diagnosis: sob Patient denied having any pain, no shortness of breath. Still having fevers however up to 102.5. It came down with Tylenol. He is currently not requiring any oxygen. Chest x-ray and urinalysis are both negative. Objective - Vital Signs Vital signs: Vital Signs Temp 98.2 F 09/15/22 08:00 Pulse 57 L 09/15/22 08:00 Resp 18 09/15/22 08:00 BP 102/69 09/15/22 08:00 Pulse Ox 95 09/15/22 09:20 FiO2 Intake & Output 09/14/22 09/15/22 09/15/22 18:59 06:59 18:59 Intake Total 118 Balance 118 Weight 98.883 kg Intake: Oral 118 Other: Voiding Method Urinal Urinal Bedside Commode # Voids 4 # Bowel Movements 1 - Exam Constitutional: No acute distress, conversant, pleasant Eyes:Anicteric sclerae, moist conjunctiva, no lid-lag, PERRLA, ENMT: Oropharynx clear, no erythema, exudates Neck: Supple, FROM, no masses, or JVD, No carotid bruits, No thyromegaly Lungs: Clear to auscultation, Clear to percussion, Normal respiratory effort, no accessory muscle use Cardiovascular: Heart regular in rate and rhythm, No murmurs, gallops, or rubs, No peripheral edema Abdominal: Soft, Nontender, no guarding, rebound or rigidity, Normoactive bowel sounds, No hepatomegaly, No splenomegaly, No palpable mass Skin: Normal temperature, tone, texture, turgor, no induration, No subcutaneous nodules, No rash, lesions, No ulcers Extremities: No digital cyanosis, No clubbing, Pedal pulses intact and symmetrical, Radial pulses intact and symmetrical, No calf tenderness Psychiatric: Alert and oriented to person, place and time, appropriate affect, intact judgement Neuro: Muscles Strength 5/5 in all 4 extremities, Sensation to light touch grossly present throughout, Cranial nerves II-XII grossly intact, no focal sensory deficits - Labs CBC & Chem 7: 09/15/22 06:26 09/15/22 06:26 Labs: Abnormal Lab Results - Last 24 Hours (Table) 09/14/22 09/14/22 09/15/22 Range/Units 16:37 20:16 06:26 WBC 26.35 H (4.50-10.00) X 10*3/uL Plt Count 89 L (140-440) X 10*3/uL Plt Count Comment DECREASED A Absolute Nucleated RBC 0.02 H (0.00-0.00) X 10*3/uL Immature Gran # 0.05 H (0.00-0.04) X 10*3/uL NRBC/100 WBC Diff 0.1 H (0.0-0.0) /100 WBCS D-Dimer (<0.60) mg/L FEU Glucose (70-110) mg/dL POC Glucose (mg/dL) 163 H 186 H (70-110) mg/dL AST (14-35) U/L ALT (10-49) U/L Lactate Dehydrogenase (120-246) U/L Total Protein (6.2-8.2) g/dL 09/15/22 09/15/22 09/15/22 Range/Units 06:26 06:26 06:29 WBC (4.50-10.00) X 10*3/uL Plt Count (140-440) X 10*3/uL Plt Count Comment Absolute Nucleated RBC (0.00-0.00) X 10*3/uL Immature Gran # (0.00-0.04) X 10*3/uL NRBC/100 WBC Diff (0.0-0.0) /100 WBCS D-Dimer 1.00 H (<0.60) mg/L FEU Glucose 211 H (70-110) mg/dL POC Glucose (mg/dL) 212 H (70-110) mg/dL AST 73 H (14-35) U/L ALT 67 H (10-49) U/L Lactate Dehydrogenase 251 H (120-246) U/L Total Protein 6.0 L (6.2-8.2) g/dL 09/15/22 Range/Units 11:56 WBC (4.50-10.00) X 10*3/uL Plt Count (140-440) X 10*3/uL Plt Count Comment Absolute Nucleated RBC (0.00-0.00) X 10*3/uL Immature Gran # (0.00-0.04) X 10*3/uL NRBC/100 WBC Diff (0.0-0.0) /100 WBCS D-Dimer (<0.60) mg/L FEU Glucose (70-110) mg/dL POC Glucose (mg/dL) 231 H (70-110) mg/dL AST (14-35) U/L ALT (10-49) U/L Lactate Dehydrogenase (120-246) U/L Total Protein (6.2-8.2) g/dL Microbiology - Last 24 Hours (Table) 09/14/22 02:46 Blood Culture - Preliminary Blood No Growth after 24 hours Assessment and Plan Plan: #Generalized weakness and debility PT and OT will be consulted to work with this patient. Patient will be placed on fall precautions. #COVID-19 #Sepsis secondary to covid Patient is not requiring any supplemental oxygen. No indication for antibiotics. Check pro calcitonin #Leukocytosis, lymphocytic predominant likely related to CLL Appears at baseline. Continue to monitor. #Obesity Patient will benefit from a structured weight loss program. Chronic conditions: CAD, diabetes mellitus, GERD, hypertension, peripheral neuropathy Restart aspirin, Lipitor. Low-dose insulin sliding scale, Accu-Cheks before meals at bedtime, hypoglycemic precautions. Restart Protonix. Restart chlorthalidone, Imdur, lisinopril. Monitor vitals, adjust medication if necessary. Restart gabapentin. DVT prophylaxis: Heparin Discussed with: Patient Anticipated discharge: 1-[address]: [facility] versus home with home health
[2022-09-15] MEDS ORDERED: SODIUM CHLORIDE 0.9% 500 ML 500 ML IV ONE (15:02)
[2022-09-15 16:58] LABS: Glucose,Whole Blood 235 mg/dL (70-110)
[2022-09-15 20:41] LABS: Glucose,Whole Blood 247 mg/dL (70-110)
[2022-09-15] MEDS: MONTELUKAST 10 MG TAB PO SCH (22:27)
[2022-09-15] MEDS: ATORVASTATIN 80 MG TAB PO SCH (22:27)
[2022-09-15] MEDS: LATANOPROST 0.005% OPHTH DROPS 2.5 ML BTL BOTH EYES SCH (22:28)
[2022-09-16 05:53] LABS: Glucose,Whole Blood 162 mg/dL (70-110)
[2022-09-16] MEDS: INSULIN ASPART (NovoLOG) 100 UNIT/ML VIAL SQ SCH ×4 (06:48→21:38)
[2022-09-16] MEDS: HEPARIN SODIUM,PORCINE/PF 5,000 UNIT/0.5 ML SYRINGE SQ SCH ×2 (08:37→21:39)
[2022-09-16] MEDS: GABAPENTIN 300 MG CAP PO SCH ×3 (08:37→21:39)
[2022-09-16] MEDS: CHLORTHALIDONE 25 MG TAB PO SCH (08:37)
[2022-09-16] MEDS: PANTOPRAZOLE 40 MG TABLET PO SCH (08:37)
[2022-09-16] MEDS: ISOSORBIDE MONONITRATE ER 30 MG TAB.ER.24H PO SCH (08:37)
[2022-09-16] MEDS: ASPIRIN 81 MG PO SCH (08:37)
[2022-09-16] MEDS: lisinopriL 20 MG TAB PO SCH ×2 (08:37→21:09)
[2022-09-16] MEDS: BRIMONIDINE TARTRATE 0.2% DROPS 5 ML BTL BOTH EYES SCH ×2 (08:38→21:40)
[2022-09-16] MEDS: TIMOLOL 0.5% OPHTH DROPS 5 ML BTL BOTH EYES SCH ×2 (08:38→21:39)
[2022-09-16 11:51] LABS: Glucose,Whole Blood 225 mg/dL (70-110)
--- NOTE | 2022-09-16 12:34 | P.PN ---
Subjective Progress Note Date: 09/16/22 Principal diagnosis: sob Patient still very weak, denied having fevers, shortness of breath or any pain. No overnight events. Objective - Vital Signs Vital signs: Vital Signs Temp 98.3 F 09/16/22 07:49 Pulse 58 L 09/16/22 07:49 Resp 14 09/16/22 07:49 BP 119/66 09/16/22 07:49 Pulse Ox 96 09/16/22 07:49 FiO2 Intake & Output 09/15/22 09/16/22 09/16/22 18:59 06:59 18:59 Other: Voiding Method Bedside Commode Bedside Commode # Voids 3 # Bowel Movements 3 1 - Exam Constitutional: No acute distress, conversant, pleasant Eyes:Anicteric sclerae, moist conjunctiva, no lid-lag, PERRLA, ENMT: Oropharynx clear, no erythema, exudates Neck: Supple, FROM, no masses, or JVD, No carotid bruits, No thyromegaly Lungs: Clear to auscultation, Clear to percussion, Normal respiratory effort, no accessory muscle use Cardiovascular: Heart regular in rate and rhythm, No murmurs, gallops, or rubs, No peripheral edema Abdominal: Soft, Nontender, no guarding, rebound or rigidity, Normoactive bowel sounds, No hepatomegaly, No splenomegaly, No palpable mass Skin: Normal temperature, tone, texture, turgor, no induration, No subcutaneous nodules, No rash, lesions, No ulcers Extremities: No digital cyanosis, No clubbing, Pedal pulses intact and symmetrical, Radial pulses intact and symmetrical, No calf tenderness Psychiatric: Alert and oriented to person, place and time, appropriate affect, intact judgement Neuro: Muscles Strength 5/5 in all 4 extremities, Sensation to light touch grossly present throughout, Cranial nerves II-XII grossly intact, no focal sensory deficits - Labs CBC & Chem 7: 09/15/22 06:26 09/15/22 06:26 Labs: Abnormal Lab Results - Last 24 Hours (Table) 09/15/22 09/15/22 09/16/22 Range/Units 16:56 20:34 05:51 POC Glucose (mg/dL) 235 H 247 H 162 H (70-110) mg/dL 09/16/22 Range/Units 11:50 POC Glucose (mg/dL) 225 H (70-110) mg/dL Microbiology - Last 24 Hours (Table) 09/14/22 02:46 Blood Culture - Preliminary Blood No Growth after 48 hours Assessment and Plan Plan: #Generalized weakness and debility likely sec to covid PT and OT evaluated patient, will benefit from ALAYNA Patient will be placed on fall precautions. #COVID-19 #Sepsis secondary to covid Patient is not requiring any supplemental oxygen. No indication for antibiotics. #Leukocytosis, lymphocytic predominant likely related to CLL Appears at baseline. Continue to monitor. #Obesity Patient will benefit from a structured weight loss program. #Diabetes mellitus with hyperglycemia Add 10 units of levemir daily as BG still high in the 200s SSI Accu-Cheks before meals at bedtime, hypoglycemic precautions. Chronic conditions: CAD, GERD, hypertension, peripheral neuropathy All stable continue meds #General weakness PT recommending home with home care vs rehab DVT prophylaxis: Heparin Discussed with: Patient Anticipated discharge: rehab on sunday =
[2022-09-16 12:50] LABS: ALT 57 U/L (4-49); AST 59 U/L (17-59); African American GFR (CKD) 88 (>60 ml/min/1.73 sqM); Albumin 3.4 g/dL (3.5-5.0); Albumin/Globulin Ratio 1.7; Alkaline Phosphatase 75 U/L (38-126); Anion Gap 9 mmol/L; Blood Urea Nitrogen 27 mg/dL (9-20); Carbon Dioxide 19 mmol/L (22-30); Chloride 107 mmol/L (98-107); Glucose 208 mg/dL (74-99); Magnesium 1.7 mg/dL (1.6-2.3); Non-African American GFR(CKD) 76 (>60 ml/min/1.73 sqM); Potassium 3.7 mmol/L (3.5-5.1); Sodium 135 mmol/L (137-145); Total Bilirubin 0.8 mg/dL (0.2-1.3); Total Protein 5.4 g/dL (6.3-8.2)
[2022-09-16] MEDS: SODIUM CHLORIDE 0.9% 1,000 ML IV SCH (12:52)
[2022-09-16 12:58] LABS: HGB 12.7 gm/dL (13.0-17.5); MCH 33.2 pg (25.0-35.0); MCHC 36.4 g/dL (31.0-37.0); MCV 91.2 fL (80.0-100.0); RBC 3.83 m/uL (4.30-5.90); RDW 13.6 % (11.5-15.5); WBC 22.6 k/uL (3.8-10.6)
[2022-09-16 13:24] LABS: Platelet Count 81 k/uL (150-450)
[2022-09-16 13:28] LABS: Lymphocytes # (M) 20.79 k/uL (1.0-4.8); Monocytes # (M) 0.23 k/uL (0-1.0); Neutrophils # (M) 1.58 k/uL (1.3-7.7); Neutrophils % (M) 7 %; Nucleated Red Blood Cells 0 /100 WBC (0-0); Total Cells Counted 100
[2022-09-16 16:38] LABS: Glucose,Whole Blood 186 mg/dL (70-110)
[2022-09-16 20:22] LABS: Glucose,Whole Blood 194 mg/dL (70-110)
[2022-09-16] MEDS: ATORVASTATIN 80 MG TAB PO SCH (21:39)
[2022-09-16] MEDS: MONTELUKAST 10 MG TAB PO SCH (21:39)
[2022-09-16] MEDS: INSULIN DETEMIR (LEVEMIR) 100 UNIT/ML SYR SQ SCH (21:39)
[2022-09-16] MEDS: LATANOPROST 0.005% OPHTH DROPS 2.5 ML BTL BOTH EYES SCH (21:40)
[2022-09-17 06:02] LABS: Glucose,Whole Blood 127 mg/dL (70-110)
[2022-09-17] MEDS: INSULIN ASPART (NovoLOG) 100 UNIT/ML VIAL SQ SCH ×4 (06:11→21:28)
[2022-09-17] MEDS: ISOSORBIDE MONONITRATE ER 30 MG TAB.ER.24H PO SCH (07:27)
[2022-09-17] MEDS: CHLORTHALIDONE 25 MG TAB PO SCH (07:27)
[2022-09-17] MEDS: PANTOPRAZOLE 40 MG TABLET PO SCH (07:27)
[2022-09-17] MEDS: HEPARIN SODIUM,PORCINE/PF 5,000 UNIT/0.5 ML SYRINGE SQ SCH ×2 (07:27→21:28)
[2022-09-17] MEDS: ASPIRIN 81 MG PO SCH (07:27)
[2022-09-17] MEDS: lisinopriL 20 MG TAB PO SCH ×2 (07:27→21:29)
[2022-09-17] MEDS: GABAPENTIN 300 MG CAP PO SCH ×3 (07:27→21:29)
[2022-09-17] MEDS: TIMOLOL 0.5% OPHTH DROPS 5 ML BTL BOTH EYES SCH ×2 (07:28→21:29)
[2022-09-17] MEDS: BRIMONIDINE TARTRATE 0.2% DROPS 5 ML BTL BOTH EYES SCH ×2 (07:28→21:30)
[2022-09-17] MEDS: SODIUM CHLORIDE 0.9% 1,000 ML IV SCH (07:45)
[2022-09-17 11:28] LABS: Glucose,Whole Blood 195 mg/dL (70-110)
--- NOTE | 2022-09-17 12:42 | P.PN ---
Subjective Progress Note Date: 09/17/22 Principal diagnosis: sob Doing well. Was sleeping this am. No fevers, no sob, not of O2. No n/v. Still weak and requiring significant assistance. Objective - Vital Signs Vital signs: Vital Signs Temp 98.0 F 09/17/22 08:00 Pulse 51 L 09/17/22 08:00 Resp 16 09/17/22 08:00 BP 138/74 09/17/22 08:00 Pulse Ox 96 09/17/22 08:00 FiO2 Intake & Output 09/16/22 09/17/22 09/17/22 18:59 06:59 18:59 Intake Total 400 400 Output Total 1000 500 Balance 400 -1000 -100 Intake: Intake, IV Titration 400 400 Amount Sodium Chloride 0.9% 1, 400 400 000 ml @ 50 mls/hr IV . Q20H [facility] Rx#:[id number] Output: Urine 1000 500 Other: Voiding Method Bedside Commode Urinal - Exam Constitutional: No acute distress, conversant, pleasant Eyes:Anicteric sclerae, moist conjunctiva, no lid-lag, PERRLA, ENMT: Oropharynx clear, no erythema, exudates Neck: Supple, FROM, no masses, or JVD, No carotid bruits, No thyromegaly Lungs: Clear to auscultation, Clear to percussion, Normal respiratory effort, no accessory muscle use Cardiovascular: Heart regular in rate and rhythm, No murmurs, gallops, or rubs, No peripheral edema Abdominal: Soft, Nontender, no guarding, rebound or rigidity, Normoactive bowel sounds, No hepatomegaly, No splenomegaly, No palpable mass Skin: Normal temperature, tone, texture, turgor, no induration, No subcutaneous nodules, No rash, lesions, No ulcers Extremities: No digital cyanosis, No clubbing, Pedal pulses intact and symmetrical, Radial pulses intact and symmetrical, No calf tenderness Psychiatric: Alert and oriented to person, place and time, appropriate affect, intact judgement Neuro: Muscles Strength 5/5 in all 4 extremities, Sensation to light touch grossly present throughout, Cranial nerves II-XII grossly intact, no focal sensory deficits - Labs CBC & Chem 7: 09/16/22 12:12 09/16/22 12:12 Labs: Abnormal Lab Results - Last 24 Hours (Table) 09/16/22 09/16/22 09/16/22 Range/Units 12:12 12:12 16:37 WBC 22.6 H (3.8-10.6) k/uL RBC 3.83 L (4.30-5.90) m/uL Hgb 12.7 L (13.0-17.5) gm/dL Hct 35.0 L (39.0-53.0) % Plt Count 81 L (150-450) k/uL Lymphocytes # (Manual) 20.79 H (1.0-4.8) k/uL Sodium 135 L (137-145) mmol/L Carbon Dioxide 19 L (22-30) mmol/L BUN 27 H (9-20) mg/dL Glucose 208 H (74-99) mg/dL POC Glucose (mg/dL) 186 H (70-110) mg/dL Calcium 8.0 L (8.4-10.2) mg/dL ALT 57 H (4-49) U/L Total Protein 5.4 L (6.3-8.2) g/dL Albumin 3.4 L (3.5-5.0) g/dL 09/16/22 09/17/22 09/17/22 Range/Units 20:17 05:59 11:26 WBC (3.8-10.6) k/uL RBC (4.30-5.90) m/uL Hgb (13.0-17.5) gm/dL Hct (39.0-53.0) % Plt Count (150-450) k/uL Lymphocytes # (Manual) (1.0-4.8) k/uL Sodium (137-145) mmol/L Carbon Dioxide (22-30) mmol/L BUN (9-20) mg/dL Glucose (74-99) mg/dL POC Glucose (mg/dL) 194 H 127 H 195 H (70-110) mg/dL Calcium (8.4-10.2) mg/dL ALT (4-49) U/L Total Protein (6.3-8.2) g/dL Albumin (3.5-5.0) g/dL Microbiology - Last 24 Hours (Table) 09/14/22 02:46 Blood Culture - Preliminary Blood No Growth after 72 hours Assessment and Plan Plan: #Generalized weakness and debility likely sec to covid PT and OT evaluated patient, will benefit from ALAYNA Patient will be placed on fall precautions. #COVID-19 #Sepsis secondary to covid Patient is not requiring any supplemental oxygen. No indication for antibiotics. #Leukocytosis, lymphocytic predominant likely related to CLL Appears at baseline. Continue to monitor. #Obesity Patient will benefit from a structured weight loss program. #Diabetes mellitus with hyperglycemia Continue 10 units of levemir daily as BG still high in the 200s SSI Accu-Cheks before meals at bedtime, hypoglycemic precautions. Chronic conditions: CAD, GERD, hypertension, peripheral neuropathy All stable continue meds #General weakness Will go to rehab DVT prophylaxis: Heparin Discussed with: Patient Anticipated discharge: rehab on sunday =
[2022-09-17] MEDS: ACETAMINOPHEN TAB 325 MG TAB PO PRN (14:55)
[2022-09-17 16:36] LABS: Glucose,Whole Blood 179 mg/dL (70-110)
[2022-09-17 20:40] LABS: Glucose,Whole Blood 191 mg/dL (70-110)
[2022-09-17] MEDS: MONTELUKAST 10 MG TAB PO SCH (21:29)
[2022-09-17] MEDS: INSULIN DETEMIR (LEVEMIR) 100 UNIT/ML SYR SQ SCH (21:29)
[2022-09-17] MEDS: ATORVASTATIN 80 MG TAB PO SCH (21:29)
[2022-09-17] MEDS: LATANOPROST 0.005% OPHTH DROPS 2.5 ML BTL BOTH EYES SCH (21:29)
[2022-09-18 06:30] LABS: Glucose,Whole Blood 181 mg/dL (70-110)
[2022-09-18] MEDS: GABAPENTIN 300 MG CAP PO SCH ×3 (08:09→21:37)
[2022-09-18] MEDS: INSULIN ASPART (NovoLOG) 100 UNIT/ML VIAL SQ SCH ×4 (08:09→21:37)
[2022-09-18] MEDS: lisinopriL 20 MG TAB PO SCH ×2 (08:09→21:37)
[2022-09-18] MEDS: ASPIRIN 81 MG PO SCH (08:09)
[2022-09-18] MEDS: CHLORTHALIDONE 25 MG TAB PO SCH (08:09)
[2022-09-18] MEDS: ISOSORBIDE MONONITRATE ER 30 MG TAB.ER.24H PO SCH (08:09)
[2022-09-18] MEDS: PANTOPRAZOLE 40 MG TABLET PO SCH (08:09)
[2022-09-18] MEDS: HEPARIN SODIUM,PORCINE/PF 5,000 UNIT/0.5 ML SYRINGE SQ SCH ×2 (08:09→21:37)
[2022-09-18] MEDS: BRIMONIDINE TARTRATE 0.2% DROPS 5 ML BTL BOTH EYES SCH ×2 (08:10→21:37)
[2022-09-18] MEDS: SODIUM CHLORIDE 0.9% 1,000 ML IV SCH (08:11)
[2022-09-18] MEDS: HYDROcodone/APAP 5-325MG 1 EACH TAB PO PRN (08:17)
[2022-09-18] MEDS: TIMOLOL 0.5% OPHTH DROPS 5 ML BTL BOTH EYES SCH ×2 (08:18→21:37)
[2022-09-18 12:17] LABS: Glucose,Whole Blood 181 mg/dL (70-110)
--- NOTE | 2022-09-18 15:48 | P.PN ---
Subjective Progress Note Date: 09/18/22 Hospital course: Patient is a very pleasant 77-year-old male with a past medical history of CLL, CAD, hypertension, hyperlipidemia and qjl-wzybevh-hxgrgdrqj diabetes mellitus. He presented to the emergency department on 09/14/22 with a chief complaint of generalized weakness accompanied by a dry cough, diarrhea, and body aches. He underwent full evaluation in the emergency department. CBC revealing significant leukocytosis with WBC count of 26.5 (chronic secondary to CLL and currently at baseline levels). CMP revealing hyperglycemia with glucose of 138 and hyperbilirubinemia with bilirubin of 1.5. Urinalysis negative for infection. Influenza A, influenza B, and RSV were negative. Covid PCR positive. EKG revealing sinus mechanism with no significant T-wave or ST abnorm alities showing no signs of acute ischemia. Chest x-ray negative for acute cardiopulmonary process. Patient was admitted under our services with consultation to PT/OT. Throughout hospitalization patient having asymptomatic bradycardia with heart rate in 50s. Also intermittently spiking elevated temp with initial temperature upon arrival to our facility 102.0F and temperature high throughout hospitalization being in the 102.5F. Patient has remained afebrile for greater than 48 hours at this time. Patient was evaluated by physical and occupational therapy, patient was found to have difficulties with transfers and endurance requiring assistance for much-needed activities of daily living. Physical and occupational therapy recommending subacute rehab upon discharge. Patient's condition is improving, he is not requiring any supplemental oxygen needs and is medically stable for discharge to rehabilitation facility. Patient awaiting insurance authorization at this time. Physical exam: Patient seen and fully evaluated at bedside this morning. Patient denied having any complaints at this time including dizziness, lightheadedness, chest pain, palpitations, shortness of breath, or experiencing any numbness/tingling/weakness in his extremities. Vital signs stable with blood pressure 111/65, heart rate 51, respiratory rate 16, and SpO2 of 97% on room air. Patient reports he ate breakfast well this morning. Patient updated on plan for residential facility placement upon discharge to help build strength and endurance so he can safely be discharged back home with his . Patient in agreement with plan at this time. Vital signs reviewed and stable. General: Nontoxic, no distress and appears stated age. Derm: Skin warm and dry, normal coloration for ethnicity. Head: Atraumatic, normocephalic and symmetric. Eyes: EOMs intact, no lid lag, and anicteric sclera Mouth: no lip lesions, mucus membranes moist Cardiovascular: regular rate and rhythm with normal S1S2, systolic murmur, positive posterior tibial pulses bilaterally, and cap refill < 2 seconds. Lungs: Respirations even, regular, and unlabored on room air. Lungs CTA bilaterally, no rhonchi, no rales, no wheezing, and no accessory muscle usage. Abdominal: soft, nontender to palpation, no guarding, no appreciable organomegaly Ext: ROM intact. No gross muscle atrophy, no edema, no contractures Neuro: Speech clear, face symmetrical and CN II-XII grossly intact with no noted focal neuro deficits Psych: Alert and oriented to person, place, time, and situation. Appropriate and pleasant affect. Assessment and Plan of Care: COVID-19 infection Generalized weakness and debility History of CLL Leukocytosis, lymphocytic predominant likely related to CLL (appears at baseline) Elevated inflammatory markers, believed to be secondary to Covid 19 infection -Patient's condition improving throughout hospitalization. -PT/OT following, patient continues to have difficulties with transfers and endurance. Will benefit from subacute rehabilitation facility placement upon discharge. -Fall precautions -Provide safe and supportive care and redirection as needed. 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 History of CAD Hypertension Hyperlipidemia -Patient to continue home medication regimen with aspirin, atorvastatin, chlorthalidone, isosorbide mononitrate, and lisinopril. Peripheral neuropathy -Patient to continue daily medication regimen with gabapentin. GERD -Continue PPI with Protonix 40 mg daily. CODE STATUS: Full code DVT prophylaxis: Heparin Discussed with: Patient and RN Anticipated discharge date: Pending insurance authorization, patient medically stable for discharge Anticipated discharge place: [facility] facility A total of 33 minutes was spent on the care of this complex patient more than 50% of the time was spent in counseling and care coordination. Objective - Vital Signs Vital signs: Vital Signs Temp 98.4 F 09/18/22 07:42 Pulse 53 L 09/18/22 07:42 Resp 16 09/18/22 07:42 BP 150/75 09/18/22 07:42 Pulse Ox 96 09/18/22 07:59 FiO2 Intake & Output 09/17/22 09/18/22 09/18/22 18:59 06:59 18:59 Intake Total 400 Output Total 500 875 Balance -100 -875 Intake: Intake, IV Titration 400 Amount Sodium Chloride 0.9% 1, 400 000 ml @ 50 mls/hr IV . Q20H [facility] Rx#:[id number] Output: Urine 500 875 Other: Voiding Method Bedside Commode Urinal - Labs CBC & Chem 7: 09/16/22 12:12 09/16/22 12:12 Labs: Abnormal Lab Results - Last 24 Hours (Table) 09/17/22 09/17/22 09/17/22 Range/Units 11:26 16:35 20:37 POC Glucose (mg/dL) 195 H 179 H 191 H (70-110) mg/dL 09/18/22 Range/Units 06:26 POC Glucose (mg/dL) 181 H (70-110) mg/dL Microbiology - Last 24 Hours (Table) 09/14/22 02:46 Blood Culture - Preliminary Blood No Growth after 96 hours
[2022-09-18 16:52] LABS: Glucose,Whole Blood 187 mg/dL (70-110)
[2022-09-18 19:48] LABS: Glucose,Whole Blood 191 mg/dL (70-110)
[2022-09-18] MEDS: INSULIN DETEMIR (LEVEMIR) 100 UNIT/ML SYR SQ SCH (21:37)
[2022-09-18] MEDS: LATANOPROST 0.005% OPHTH DROPS 2.5 ML BTL BOTH EYES SCH (21:37)
[2022-09-18] MEDS: ATORVASTATIN 80 MG TAB PO SCH (21:37)
[2022-09-18] MEDS: MONTELUKAST 10 MG TAB PO SCH (21:37)
[2022-09-19] MEDS: SODIUM CHLORIDE 0.9% 1,000 ML IV SCH (01:45)
[2022-09-19] MEDS: LOPERAMIDE 2 MG CAP PO PRN ×2 (02:02→08:22)
[2022-09-19 06:02] LABS: Glucose,Whole Blood 168 mg/dL (70-110)
[2022-09-19] MEDS: INSULIN ASPART (NovoLOG) 100 UNIT/ML VIAL SQ SCH ×2 (06:36→12:24)
[2022-09-19] MEDS: PANTOPRAZOLE 40 MG TABLET PO SCH (06:36)
[2022-09-19 07:31] VITALS: BP 148/61; PULSE 53; RESP 18; TEMP 99
[2022-09-19] MEDS: BRIMONIDINE TARTRATE 0.2% DROPS 5 ML BTL BOTH EYES SCH (08:04)
[2022-09-19] MEDS: ASPIRIN 81 MG PO SCH (08:04)
[2022-09-19] MEDS: GABAPENTIN 300 MG CAP PO SCH (08:04)
[2022-09-19] MEDS: CHLORTHALIDONE 25 MG TAB PO SCH (08:04)
[2022-09-19] MEDS: HEPARIN SODIUM,PORCINE/PF 5,000 UNIT/0.5 ML SYRINGE SQ SCH (08:04)
[2022-09-19] MEDS: lisinopriL 20 MG TAB PO SCH (08:04)
[2022-09-19] MEDS: TIMOLOL 0.5% OPHTH DROPS 5 ML BTL BOTH EYES SCH (08:04)
[2022-09-19] MEDS: ISOSORBIDE MONONITRATE ER 30 MG TAB.ER.24H PO SCH (08:04)
[2022-09-19 11:26] LABS: Glucose,Whole Blood 177 mg/dL (70-110)
--- NOTE | 2022-09-19 11:39 | P.DS ---
Providers Date of admission: 09/14/22 05:57 Expected date of discharge: 09/19/22 Attending physician: Carmen Gardner MD [facility] Course: Discharge Diagnosis: COVID-19 infection. Patient has been afebrile 4 days. Generalized weakness and debility. Patient did show improvement throughout hospitalization. He was evaluated by PT/OT and was found to have difficulties with transfers and endurance. Will benefit from subacute rehabilitation facility placement upon discharge. Patient being discharged to [facility] for rehab History of CLL Leukocytosis, lymphocytic predominant likely related to CLL (appears at baseline) Elevated inflammatory markers, secondary to Covid 19 infection. Hyperbilirubinemia, resolved Type II rug-yppdnvj-segabembx diabetes mellitus with hyperglycemia. Resume home insulin medication regimen with NovoLog units nightly and 22 units each morning. History of CAD. Patient to continue home cardiac medication regimen with aspirin, atorvastatin, chlorthalidone, isosorbide mononitrate, and lisinopril. Hypertension. Monitor vital signs and continue daily medication regimen with isosorbide mononitrate and lisinopril. Hyperlipidemia. Continue daily medication regimen with atorvastatin. Continue heart healthy and carb consistent diet. Peripheral neuropathy. Patient to continue daily medication regimen with gabapentin. GERD. Continue PPI with Protonix 40 mg daily. Hospital Course: Patient is a very pleasant 77-year-old male with a past medical history of CLL, CAD, hypertension, hyperlipidemia and kow-smevuil-ixyvmjubm diabetes mellitus. He presented to the emergency department on 09/14/22 with a chief complaint of generalized weakness accompanied by a dry cough, diarrhea, and body aches. He underwent full evaluation in the emergency department. CBC revealing significant leukocytosis with WBC count of 26.5 (chronic secondary to CLL and currently at baseline levels). CMP revealing hyperglycemia with glucose of 138 and hyperbilirubinemia with bilirubin of 1.5. Urinalysis negative for infection. Influenza A, influenza B, and RSV were negative. Covid PCR positive. EKG revealing sinus mechanism with no significant T-wave or ST abnormalities showing no signs of acute ischemia. Chest x-ray negative for acute cardiopulmonary process. Patient was admitted under our services with consultation to PT/OT. Throughout hospitalization patient having asymptomatic bradycardia with heart rate in 50s. Also intermittently spiking elevated temp with initial temperature upon arrival to our facility 102.0F and temperature high throughout hospitalization being in the 102.5F. Patient has remained afebrile for greater than 48 hours at this time. Patient was evaluated by physical and occupational therapy, patient was found to have difficulties with transfers and endurance requiring assistance for much-needed activities of daily living. Physical and occupational therapy recommending subacute rehab upon discharge. Patient's condition is improving, he is not required any supplemental oxygen needs and is medically stable for discharge to rehabilitation facility. Patient has received insurance authorization and is being discharged to [facility] for rehab to assist with building endurance, stamina, and strength until patient is strong enough to return home with . Physical exam: Patient seen and fully evaluated at bedside this morning. Patient denied having any complaints at this time including dizziness, lightheadedness, chest pain, palpitations, shortness of breath, or experiencing any numbness/tingling/weakness in his extremities. Vital signs reviewed and stable. General: Nontoxic, no distress and appears stated age. Derm: Skin warm and dry, normal coloration for ethnicity. Head: Atraumatic, normocephalic and symmetric. Eyes: EOMs intact, no lid lag, and anicteric sclera Mouth: no lip lesions, mucus membranes moist Cardiovascular: regular rate and rhythm with normal S1S2, systolic murmur, positive posterior tibial pulses bilaterally, and cap refill < 2 seconds. Lungs: Respirations even, regular, and unlabored on room air. Lungs CTA bilaterally, no rhonchi, no rales, no wheezing, and no accessory muscle usage. Abdominal: soft, nontender to palpation, no guarding, no appreciable organomegaly Ext: ROM intact. No gross muscle atrophy, no edema, no contractures Neuro: Speech clear, face symmetrical and CN II-XII grossly intact with no noted focal neuro deficits Psych: Alert and oriented to person, place, time, and situation. Appropriate and pleasant affect. A total of 35 minutes of time were spent preparing this complex discharge summary. Pt was discharged on 09/19/20 to 11:28 AM. Patient Condition at Discharge: Stable Plan - Discharge Summary Discharge Rx Participant: No New Discharge Prescriptions: New Acetaminophen Tab [Tylenol] 650 mg PO Q6HR PRN tab PRN Reason: Mild Pain Or Fever > 100.5 Continue Montelukast Sodium [Singulair] 10 mg PO HS Fluticasone Nasal [place] [Flonase Nasal [place]] 2 spr EA NOSTRIL DAILY Atorvastatin [Lipitor] 80 mg PO HS Baclofen [Lioresal] 10 mg PO DAILY Latanoprost/Pf [Latanoprost 0.005% Eye Drop] 1 drop BOTH EYES HS Chlorthalidone [Hygroton] 25 mg PO DAILY #90 tab Meclizine [Antivert] 25 mg PO TID ALPRAZolam [Xanax] 0.25 mg PO DAILY PRN #3 tab PRN Reason: Anxiety SILVER sulfADIAZINE CREAM [Silvadene Cream] 1 applic TOPICAL BID Isosorbide Mononitrate ER [Imdur] 30 mg PO DAILY #30 tab lisinopriL [Zestril] 20 mg PO BID Omeprazole 40 mg PO DAILY Brimonidine Tartrate/Timolol [Combigan 0.2%-0.5% Eye Drops] 1 drop BOTH EYES BID Nitroglycerin Sl Tabs [Nitrostat] 0.4 mg SUBLINGUAL Q5M PRN tab PRN Reason: Chest Pain Aspirin EC [Ecotrin Low Dose] 81 mg PO DAILY Insulin Aspart Prot/Insuln Asp [Relion Novolog Mix 70-30 Vial] 15 units SQ HS Insulin Aspart Prot/Insuln Asp [Relion Novolog Mix 70-30 Vial] 22 units SQ QAM Gabapentin [Neurontin] 300 mg PO TID #9 cap HYDROcodone/APAP 5-325MG [[place] 5-325] 1 tab PO Q6HR PRN #12 tab PRN Reason: Pain Discontinued Doxycycline Monohydrate 100 mg PO BID Discharge Medication List Montelukast Sodium [Singulair] 10 mg PO HS 05/25/17 [History] Fluticasone Nasal [place] [Flonase Nasal [place]] 2 spr EA NOSTRIL DAILY 01/24/21 [History] Atorvastatin [Lipitor] 80 mg PO HS 03/08/21 [History] Baclofen [Lioresal] 10 mg PO DAILY 04/18/21 [History] SILVER sulfADIAZINE CREAM [Silvadene Cream] 1 applic TOPICAL BID 04/18/21 [History] Isosorbide Mononitrate ER [Imdur] 30 mg PO DAILY #30 tab 04/19/21 [Rx] Omeprazole 40 mg PO DAILY 07/27/21 [History] lisinopriL [Zestril] 20 mg PO BID 10/20/21 [History] Brimonidine Tartrate/Timolol [Combigan 0.2%-0.5% Eye Drops] 1 drop BOTH EYES BID 09/06/21 [History] Latanoprost/Pf [Latanoprost 0.005% Eye Drop] 1 drop BOTH EYES HS 09/06/21 [History] Chlorthalidone [Hygroton] 25 mg PO DAILY #90 tab 05/15/22 [Rx] Nitroglycerin Sl Tabs [Nitrostat] 0.4 mg SUBLINGUAL Q5M PRN tab 05/15/22 [Rx] Aspirin EC [Ecotrin Low Dose] 81 mg PO DAILY 09/14/22 [History] Insulin Aspart Prot/Insuln Asp [Relion Novolog Mix 70-30 Vial] 15 units SQ HS 09/14/22 [History] Insulin Aspart Prot/Insuln Asp [Relion Novolog Mix 70-30 Vial] 22 units SQ QAM 09/14/22 [History] Meclizine [Antivert] 25 mg PO TID 09/14/22 [History] ALPRAZolam [Xanax] 0.25 mg PO DAILY PRN #3 tab 09/19/22 [Rx] Acetaminophen Tab [Tylenol] 650 mg PO Q6HR PRN tab 09/19/22 [Rx] Gabapentin [Neurontin] 300 mg PO TID #9 cap 09/19/22 [Rx] HYDROcodone/APAP 5-325MG [[place] 5-325] 1 tab PO Q6HR PRN #12 tab 09/19/22 [Rx] Follow up Appointment(s)/Referral(s): Edgard Schneider DO [Primary Care Provider] - 1-2 days Activity/Diet/Wound Care/Special Instructions: [facility] Discharge Disposition: TRANSFER TO SNF/F
[2022-09-19] MEDS: HYDROcodone/APAP 5-325MG 1 EACH TAB PO PRN (12:27)
== END 2022-09-19 13:10 | DRG 178 ==
LOC: EC 01:52 → 5NMEDONC 05:57 → 4SSUR 14:35
PROVIDERS: ADMIT Internal Medicine; ATTEND Internal Medicine
DX: U07.1 COVID-19 (principal); C91.10 Chronic lymphocytic leukemia of B-cell type not having achieved remission; R17 Unspecified jaundice; E11.42 Type 2 diabetes mellitus with diabetic polyneuropathy; E11.65 Type 2 diabetes mellitus with hyperglycemia; E86.0 Dehydration; Z79.4 Long term (current) use of insulin; Z28.310 Unvaccinated for COVID-19; I10 Essential (primary) hypertension; E78.5 Hyperlipidemia, unspecified; E66.9 Obesity, unspecified; I25.10 Atherosclerotic heart disease of native coronary artery without angina pectoris; K21.9 Gastro-esophageal reflux disease without esophagitis; J30.2 Other seasonal allergic rhinitis; M79.10 Myalgia, unspecified site; Z68.29 Body mass index [BMI] 29.0-29.9, adult; M19.042 Primary osteoarthritis, left hand; M19.041 Primary osteoarthritis, right hand; Z79.82 Long term (current) use of aspirin; Z79.899 Other long term (current) drug therapy; Z88.0 Allergy status to penicillin; Z88.8 Allergy status to other drugs, medicaments and biological substances
CPT/HCPCS: 36415; 71045; 80053; 81003; 82728; 83605; 83615; 83735; 84100; 84145; 84484; 85025; 85379; 85610; 85730; 87040; 87502; 87634; 87635; 93005; 94760; 96361; 96365; 96375; 99285

== ENCOUNTER → 2023-02-05 | Outpatient (CLI) | payer MEDICARE ==
--- NOTE | 2023-02-05 08:04 | CT ---
EXAMINATION TYPE: CT brain wo con CT DLP: 1081.60 mGycm, Automated exposure control for dose reduction was used. DATE OF EXAM: 02/05/2023 7:53 AM COMPARISON: Prior CT Brain from 04/05/2022. CLINICAL INDICATION:Male, 77 years old with history of R51.9 Headache, Headache TECHNIQUE: Brain: Multiple axial CT images of the brain were obtained without IV contrast. Coronal and sagittal reformats reviewed. FINDINGS: Brain: Extra-axial spaces: No abnormal extra-axial fluid collections. Ventricular system: Within normal limits Cerebral parenchyma: Cerebral atrophy. No acute intraparenchymal hemorrhage or mass effect. The vela -white junction is well differentiated. Scattered hypoattenuating areas are seen within the white mat ter. Cerebellum: Unremarkable. Mass effect: No evidence of midline shift. Intracranial vasculature: Atherosclerotic calcifications of the intracranial vessels. Soft tissues: Normal. Calvarium/osseous structures: No depressed skull fracture. Paranasal sinuses and mastoid air cells: Moderate to severe mucosal thickening of the right maxillary sinus. This is new from prior exam. The remaining paranasal sinuses are clear. Minimal opacification of the inferior right mastoid air cells. This is new from prior exam. Visualized orbits: Bilateral aphakia IMPRESSION: 1. No acute intracranial process. 2. Nonspecific white matter changes, likely secondary to chronic small vessel ischemic disease. 3. New moderate to severe right maxillary sinus disease. Clinical correlation is recommended. 4. Minimal right mastoid effusion.
== END | disposition home or self-care (01) ==
LOC: RADCTMAIN 07:00
PROVIDERS: ATTEND Family Medicine
DX: R90.82 White matter disease, unspecified (principal); J32.0 Chronic maxillary sinusitis; H74.8X1 Other specified disorders of right middle ear and mastoid; R42 Dizziness and giddiness
CPT/HCPCS: 70450

== ENCOUNTER 2023-02-08 22:49 | Emergency (ER) | payer MEDICARE ==
[2023-02-08 23:05] VITALS: PULSE 67; RESP 18; TEMP 98.4
[2023-02-08 23:06] VITALS: BP 143/71
--- NOTE | 2023-02-08 23:13 | ED ---
General Adult HPI - General Chief complaint: Chest Pain Stated complaint: Chest Pain Time Seen by Provider: 02/08/23 23:03 Source: patient Mode of arrival: EMS Limitations: no limitations - History of Present Illness Initial comments: Dictation was produced using [employer] dictation software. please excuse any grammatical, word or spelling errors. Chief Complaint: 77-year-old male presents with sharp chest pain History of Present Illness: 77-year-old male is brought in by EMS from home. Patient complaint of one day of sharp chest pain. Patient states his symptoms began several hours prior to arrival. States that the pain is substernal sharp in nature worse with deep inspiration. He has had a mild cough. Denies any numbness Sloane paresthesias to the arms or legs. Denies any shortness of breath. Patient is not associated diaphoresis or nausea. Nonradiating to the extremities or jaw The ROS documented in this emergency department record has been reviewed and confirmed by me. Those systems with pertinent positive or negative responses have been documented in the HPI. All other systems are other negative and/or noncontributory. - Related Data Home Medications Medication Instructions Recorded Confirmed Montelukast Sodium [Singulair] 10 mg PO HS 05/25/17 09/14/22 Fluticasone Nasal [place] [Flonase 2 spr EA NOSTRIL DAILY 01/24/21 09/14/22 Nasal [place]] Atorvastatin [Lipitor] 80 mg PO HS 03/08/21 09/14/22 Baclofen [Lioresal] 10 mg PO DAILY 04/18/21 09/14/22 SILVER sulfADIAZINE CREAM 1 applic TOPICAL BID 04/18/21 09/14/22 [Silvadene Cream] Omeprazole 40 mg PO DAILY 07/27/21 09/14/22 lisinopriL [Zestril] 20 mg PO BID 07/27/21 09/14/22 Brimonidine Tartrate/Timolol 1 drop BOTH EYES BID 09/06/21 09/14/22 [Combigan 0.2%-0.5% Eye Drops] Latanoprost/Pf [Latanoprost 0.005% 1 drop BOTH EYES HS 09/06/21 09/14/22 Eye Drop] Aspirin EC [Ecotrin Low Dose] 81 mg PO DAILY 09/14/22 09/14/22 Insulin Aspart Prot/Insuln Asp 15 units SQ HS 09/14/22 09/14/22 [Relion Novolog Mix 70-30 Vial] Insulin Aspart Prot/Insuln Asp 22 units SQ QAM 09/14/22 09/14/22 [Relion Novolog Mix 70-30 Vial] Meclizine [Antivert] 25 mg PO TID 09/14/22 09/14/22 Previous Rx's Medication Instructions Recorded Isosorbide Mononitrate ER [Imdur] 30 mg PO DAILY #30 tab 04/19/21 Chlorthalidone [Hygroton] 25 mg PO DAILY #90 tab 05/15/22 Nitroglycerin Sl Tabs [Nitrostat] 0.4 mg SUBLINGUAL Q5M PRN tab 05/15/22 ALPRAZolam [Xanax] 0.25 mg PO DAILY PRN #3 tab 09/19/22 Acetaminophen Tab [Tylenol] 650 mg PO Q6HR PRN tab 09/19/22 Gabapentin [Neurontin] 300 mg PO TID #9 cap 09/19/22 HYDROcodone/APAP 5-325MG [[place] 1 tab PO Q6HR PRN #12 tab 09/19/22 5-325] Allergies Allergy/AdvReac Type Severity Reaction Status Date / Time amoxicillin [From Augmentin] Allergy Rash/Hives Verified 09/14/22 08:51 clavulanic acid Allergy Rash/Hives Verified 09/14/22 08:51 [From Augmentin] Review of Systems ROS Statement: Those systems with pertinent positive or pertinent negative responses have been documented in the HPI. ROS Other: All systems not noted in ROS Statement are negative. Past Medical History Past Medical History: Coronary Artery Disease (CAD), Cancer, Diabetes Mellitus, GERD/Reflux, Hypertension, Osteoarthritis (OA) Additional Past Medical History / Comment(s): NIDDM type II, 1999 LEUKEMIA (CLL- remission), sinus problems, seasonal allergies, tinnitis bilaterally, OA hands, R wrist carpal tunnel, past fx with L elbow, R rotator cuff tendon problems, L rotator cuff tear, left knee pain History of Any Multi-Drug Resistant Organisms: None Reported Past Surgical History: Heart Catheterization, Orthopedic Surgery Additional Past Surgical History / Comment(s): LEFT HAND thumb tendon repair. L knee surgery. Past Anesthesia/Blood Transfusion Reactions: No Reported Reaction Past Psychological History: No Psychological Hx Reported Additional Psychological History / Comment(s): Pt resides with his spouse. He is independent. He ambulates with a cane. He drives. Smoking Status: Never smoker Past Alcohol Use History: None Reported Past Drug Use History: None Reported Additional Drug Use History / Comment(s): Occasional marijuana - Past Family History Father Family Medical History: CVA/TIA Additional Family Medical History / Comment(s): Father at the age of 85yrs. Mother Family Medical History: Diabetes Mellitus Additional Family Medical History / Comment(s): Mother at the age of 90yrs. General Exam - General Exam Comments Initial Comments: PHYSICAL EXAM: General Impression: Alert and oriented x3, not in acute distress HEENT: Normocephalic atraumatic, extra-ocular movements intact, pupils equal and reactive to light bilaterally, mucous membranes moist. Cardiovascular: Heart regular rate and rhythm Chest: Able to complete full sentences, no retractions, no tachypnea Abdomen: abdomen soft, non-tender, non-distended, no organomegaly Musculoskeletal: Pulses present and equal in all extremities, no peripheral edema Motor: no focal deficits noted Neurological: CN II-XII grossly intact, no focal motor or sensory deficits noted Skin: Intact with no visualized rashes Psych: Normal affect and mood Limitations: no limitations Course Vital Signs 02/08/23 02/08/23 22:58 23:05 Temperature 98.4 F Pulse Rate 67 Respiratory 18 Rate Blood Pressure 143/71 Medical Decision Making - Medical Decision Making Was pt. sent in by a medical professional or institution (, NEW, ACCREDITED LEGAL SECRETARY, urgent care, hospital, or care home...) When possible be specific @ -No Did you speak to anyone other than the patient for history (EMS, parent, family, police, friend...)? What history was obtained from this source @ -No Did you review nursing and triage notes (agree or disagree)? Why? @ -I reviewed and agree with nursing and triage notes Were old charts reviewed (outside hosp., previous admission, EMS record, old EKG, old radiological studies, urgent care reports/EKG's, care home records)? Report findings @ -Cardiology note from May 2022 was reviewed. Patient at that time had coronary event ruled out. Differential Diagnosis (chest pain, altered mental status, abdominal pain women, abdominal pain men, vaginal bleeding, musculoskeletal, weakness, fever, dyspnea, syncope, headache, dizziness, GI bleed, back pain, seizure, CVA, palpatations, mental health)? @ -Differential Chest Pain: Stable Angina, Unstable Angina, STEMI, NSTEMI Aortic Dissection, Pneumothorax, Musculoskeletal, Esophageal Spasm GERD, Cholecystitis, Pancreatitis, Zoster, this is not meant to be an all-inclusive list. EKG interpreted by me (3pts min.). @ -My EKG interpretation: Ventricular rate 63, sinus rhythm,. Interval and 61, QRS 81, QTC 414. No NV prolongation, no QTC prolongation, no ST or T-wave changes noted. EKG compared to 09/14/2022 showing no changes. Overall, this EKG is unremarkable X-rays interpreted by me (1pt min.). @ -no acute processes on chest x-ray CT interpreted by me (1pt min.). @ -CT angiography of the chest was ordered for elevated d-dimer. No acute processes noted U/S interpreted by me (1pt. min.). @ -None done What testing was considered but not performed or refused? (CT, X-rays, U/S, labs )? Why? @ -None What meds were considered but not given or refused? Why? @ -None Did you discuss the management of the patient with other professionals (professionals i.e. , PA, ACCREDITED LEGAL SECRETARY, lab, RT, psych nurse, outreach and education social worker, acute care surgeon, teacher, tactical deception plans officer, vocational case manager)? Give summary @ -No Was smoking cessation discussed for >3mins.? @ -No Was critical care preformed (if so, how long)? @ -No Were there social determinants of health that impacted care today? How? (Homelessness, low income, unemployed, alcoholism, drug addiction, transportation, low edu. Level, literacy, decrease access to med. care, group home, rehab)? @ -No Was there de-escalation of care discussed even if they declined (Discuss DNR or withdrawal of care, Hospice)? DNR status @ -No What co-morbidities impacted this encounter? (DM, HTN, Smoking, COPD, CAD, Cancer, CVA, ARF, Chemo, Hep., AIDS, mental health diagnosis, sleep apnea, morbid obesity)? @ -None Was patient admitted / discharged? Hospital course, mention meds given and route, prescriptions, significant lab abnormalities, going to OR and other pertinent info. @ -77-year-old male presents emergency department for atypical chest pain. He did have a slightly elevated d-dimer. CT angiography was obtained showing no PEs. Laboratory evaluation obtained. This shows elevated white count 20.2 however he has history of chronically elevated white blood cell count, no obvious source. Patient not have any localizing symptoms of infection. Rest of labs within acceptable limits. Troponin is negative. Patient observed in emergency department for 3 hours and 40 minutes. Reevaluated at bedside at 204 and found with stable medical condition. Patient will be discharged. Patient also has a secondary complaint of headache however patient has chronic headaches. His neurologic exam is benign. No concern for COURT OF APPEALS JUDGE infection. Undiagnosed new problem with uncertain prognosis? @ -No Drug Therapy requiring intensive monitoring for toxicity (Heparin, Nitro, Insulin, Cardizem)? @ -No Were any procedures done? @ -No Diagnosis/symptom? Acute, or Chronic, or Acute on Chronic? Uncomplicated (without systemic symptoms) or Complicated (systemic symptoms)? @ -1. Atypical chest pain, no high-risk features Side effects of treatment? @ -No Exacerbation, Progression, or Severe Exacerbation? @ -No Poses a threat to life or bodily function? How? (Chest pain, [place], SD, pneumonia, PE, COPD, DKA, ARF, appy, cholecystitis, CVA, Diverticulitis, Homicidal, Suicidal, threat to staff... and all critical care pts) @ -No - Lab Data Result diagrams: 02/08/23 23:00 02/08/23 23:00 Lab Results 02/08/23 02/08/23 02/08/23 Range/Units 23:00 23:00 23:00 WBC 20.2 H (3.8-10.6) k/uL RBC 4.27 L (4.30-5.90) m/uL Hgb 12.8 L (13.0-17.5) gm/dL Hct 39.4 (39.0-53.0) % MCV 92.2 (80.0-100.0) fL MCH 29.9 (25.0-35.0) pg MCHC 32.5 (31.0-37.0) g/dL RDW 14.8 (11.5-15.5) % Plt Count 119 L (150-450) k/uL MPV 8.6 Neutrophils % 19 % Lymphocytes % 74 % Monocytes % 3 % Eosinophils % 1 % Basophils % 1 % Neutrophils # 3.7 (1.3-7.7) k/uL Lymphocytes # 15.0 H (1.0-4.8) k/uL Monocytes # 0.5 (0-1.0) k/uL Eosinophils # 0.2 (0-0.7) k/uL Basophils # 0.1 (0-0.2) k/uL Manual Slide Review Performed Polychromasia Present PT 11.5 (9.0-12.0) sec INR 1.1 (<1.2) APTT 24.1 (22.0-30.0) sec D-Dimer 0.89 H (<0.60) mg/L FEU Sodium 140 (137-145) mmol/L Potassium 3.5 (3.5-5.1) mmol/L Chloride 102 (98-107) mmol/L Carbon Dioxide 29 (22-30) mmol/L Anion Gap 9 mmol/L BUN 12 (9-20) mg/dL Creatinine 0.84 (0.66-1.25) mg/dL Est GFR (CKD-EPI)AfAm >90 (>60 ml/min/1.73 sqM) Est GFR (CKD-EPI)NonAf 86 (>60 ml/min/1.73 sqM) Glucose 164 H (74-99) mg/dL Calcium 8.9 (8.4-10.2) mg/dL Troponin I (0.000-0.034) ng/mL Lipase 61 (23-300) U/L 02/08/23 Range/Units 23:00 WBC (3.8-10.6) k/uL RBC (4.30-5.90) m/uL Hgb (13.0-17.5) gm/dL Hct (39.0-53.0) % MCV (80.0-100.0) fL MCH (25.0-35.0) pg MCHC (31.0-37.0) g/dL RDW (11.5-15.5) % Plt Count (150-450) k/uL MPV Neutrophils % % Lymphocytes % % Monocytes % % Eosinophils % % Basophils % % Neutrophils # (1.3-7.7) k/uL Lymphocytes # (1.0-4.8) k/uL Monocytes # (0-1.0) k/uL Eosinophils # (0-0.7) k/uL Basophils # (0-0.2) k/uL Manual Slide Review Polychromasia PT (9.0-12.0) sec INR (<1.2) APTT (22.0-30.0) sec D-Dimer (<0.60) mg/L FEU Sodium (137-145) mmol/L Potassium (3.5-5.1) mmol/L Chloride (98-107) mmol/L Carbon Dioxide (22-30) mmol/L Anion Gap mmol/L BUN (9-20) mg/dL Creatinine (0.66-1.25) mg/dL Est GFR (CKD-EPI)AfAm (>60 ml/min/1.73 sqM) Est GFR (CKD-EPI)NonAf (>60 ml/min/1.73 sqM) Glucose (74-99) mg/dL Calcium (8.4-10.2) mg/dL Troponin I 0.014 (0.000-0.034) ng/mL Lipase (23-300) U/L Disposition Clinical Impression: Chest pain Disposition: HOME SELF-CARE Condition: Good Instructions (If sedation given, give patient instructions): Chest Pain (ED) Is patient prescribed a controlled substance at d/c from ED?: No Referrals: Edgard Schneider DO [Primary Care Provider] - 1-2 days Time of Disposition: 02:06
[2023-02-08 23:21] LABS: Basophils # (A) 0.1 k/uL (0-0.2); Basophils % (A) 1 %; Eosinophils # (A) 0.2 k/uL (0-0.7); Eosinophils % (A) 1 %; HCT 39.4 % (39.0-53.0); HGB 12.8 gm/dL (13.0-17.5); Lymphocytes % (A) 74 %; MCH 29.9 pg (25.0-35.0); MCHC 32.5 g/dL (31.0-37.0); MCV 92.2 fL (80.0-100.0); Mean Platelet Volume 8.6; Monocytes # (A) 0.5 k/uL (0-1.0); Monocytes % (A) 3 %; Neutrophils # (A) 3.7 k/uL (1.3-7.7); Neutrophils % (A) 19 %; Platelet Count 119 k/uL (150-450); RBC 4.27 m/uL (4.30-5.90); RDW 14.8 % (11.5-15.5); WBC 20.2 k/uL (3.8-10.6)
[2023-02-08 23:30] LABS: African American GFR (CKD) >90 (>60 ml/min/1.73 sqM); Anion Gap 9 mmol/L; Blood Urea Nitrogen 12 mg/dL (9-20); Calcium 8.9 mg/dL (8.4-10.2); Carbon Dioxide 29 mmol/L (22-30); Chloride 102 mmol/L (98-107); Glucose 164 mg/dL (74-99); Lipase 61 U/L (23-300); Non-African American GFR(CKD) 86 (>60 ml/min/1.73 sqM); Potassium 3.5 mmol/L (3.5-5.1); Sodium 140 mmol/L (137-145)
[2023-02-08 23:35] LABS: INR 1.1 (<1.2); Partial Thromboplastin Time 24.1 sec (22.0-30.0); Prothrombin Time 11.5 sec (9.0-12.0)
[2023-02-08 23:51] LABS: Polychromasia Present
[2023-02-09] MEDS ORDERED: HYDROcodone/APAP 5-325MG 1 EACH TAB PO STA (00:26)
--- NOTE | 2023-02-09 00:34 | XR ---
EXAM: XR Chest, 1 View CLINICAL HISTORY: XR Reason: chest pain TECHNIQUE: Frontal view of the chest. COMPARISON: September 14, 2022 FINDINGS: Lungs: Slight prominent interstitial markings over the lung bases suggesting mild emphysema, unchanged. No acute infiltrate, pneumothorax, or pleural effusion is seen. Pleural space: Unremarkable. No pneumothorax. Heart: Borderline cardiomegaly. Mediastinum: Unremarkable. Bones/joints: Mild osteophytosis in the lower thoracic spine. Upper abdomen: There is no pneumoperitoneum under the diaphragm. IMPRESSION: Slight prominent interstitial markings over the lung bases suggesting mild emphysema, unchanged. No acute infiltrate, pneumothorax, or pleural effusion is seen.
--- NOTE | 2023-02-09 01:53 | CT ---
EXAM: CT Angiography Chest With Intravenous Contrast CLINICAL HISTORY: CT Reason: positive D-dimer TECHNIQUE: Axial computed tomographic angiography images of the chest with intravenous contrast. CTDI is 12.9 mGy and DLP is 408 mGy-cm. This CT exam was performed using one or more of the following dose reduction techniques: automated exposure control, adjustment of the mA and/or kV according to patient size, and/or use of iterative reconstruction technique. MIP reconstructed images were created and reviewed. COMPARISON: No relevant prior studies available. FINDINGS: Pulmonary arteries: The pulmonary arterial tree is well opacified with contrast. There is motion artifact blurring the lower lobe branches bilaterally. No pulmonary emboli are identified. Aorta: The thoracic aorta is mildly calcified but nondilated. There is no aneurysm or dissection. Lungs: Unremarkable. No mass. No consolidation. Pleural space: Prominent interstitial markings in the lung bases, blurred by motion. Probable mild emphysema, less likely mild edema. No pneumothorax or pleural effusion is seen. Heart: The heart is mildly enlarged. Moderate coronary calcification is present. No pericardial effusion. No evidence of RV dysfunction. Bones/joints: Mild degenerative changes in the spine. No acute fracture or destructive bone lesion is seen. No dislocation. Soft tissues: Unremarkable. Lymph nodes: Unremarkable. No enlarged lymph nodes. IMPRESSION: 1. Prominent interstitial markings in the lung bases, blurred by motion. Probable mild emphysema, less likely mild edema. No pneumothorax or pleural effusion is seen. 2. The pulmonary arterial tree is well opacified with contrast. There is motion artifact blurring the lower lobe branches bilaterally. No pulmonary emboli are identified. 3. The thoracic aorta is mildly calcified but nondilated. There is no aneurysm or dissection. 4. The heart is mildly enlarged. Moderate coronary calcification is present. No pericardial effusion.
== END 2023-02-09 03:53 | disposition home or self-care (01) ==
LOC: EC 22:49
DX: R07.89 Other chest pain (principal); I25.10 Atherosclerotic heart disease of native coronary artery without angina pectoris; I10 Essential (primary) hypertension; F12.90 Cannabis use, unspecified, uncomplicated; E11.9 Type 2 diabetes mellitus without complications; K21.9 Gastro-esophageal reflux disease without esophagitis; Z88.1 Allergy status to other antibiotic agents; Z88.0 Allergy status to penicillin; Z79.82 Long term (current) use of aspirin; Z79.4 Long term (current) use of insulin; Z79.899 Other long term (current) drug therapy
CPT/HCPCS: 36415; 71045; 71275; 80048; 83690; 84484; 85025; 85379; 85610; 85730; 93005; 99285

== ENCOUNTER 2023-06-05 14:56 | Emergency (ER) | payer MEDICARE ==
--- NOTE | 2023-06-05 15:40 | ED ---
General Adult HPI - General Chief complaint: Chest Pain Stated complaint: Chest Pain Source: patient, EMS Mode of arrival: EMS Limitations: no limitations - History of Present Illness Initial comments: 's patient is a 78-year-old man who presents with a number of complaints that had come on this morning. The patient states that she had gotten up from his chair and then when he was walking he noticed that he had a numb feeling over the left anterior chest. There is also some right sided upper abdominal discomfort. He states the pain has been intermittent, lasts about 15 minutes at a time, is sharp. He has not noted worsening or relieving factors. The symptoms are symptoms he has been experiencing intermittently going back a number of weeks. He did not note any diaphoresis, dyspnea, palpitations, lightheadedness, nausea or vomiting. The patient did mention some headache to than nursing staff when I question him about this he states that he has been dealing with sinus infection as well as an eye infection for a few weeks. He states that he sees Dr. Reagan in relation to the eye infection, and he uses an antibiotic ointment and steroid drop. He states that he feels that his eye is about 75% better. He states that the headache is consistent with what they have been calling sinusitis and treating and that he has an appointment with the ENT physician coming up. Onset/Timin -: hour(s) Location: chest, abdomen Radiation: non-radiation Quality: other (A numb feeling) Consistency: now resolved Improves with: none Worsens with: none Associated Symptoms: chest pain Treatments Prior to Arrival: none - Related Data Home Medications Medication Instructions Recorded Confirmed Montelukast Sodium [Singulair] 10 mg PO DAILY 05/25/17 06/05/23 Fluticasone Nasal [place] [Flonase 1 spr EA NOSTRIL DAILY PRN 01/24/21 06/05/23 Nasal [place]] Atorvastatin [Lipitor] 80 mg PO DAILY 03/08/21 06/05/23 SILVER sulfADIAZINE CREAM 1 applic TOPICAL BID PRN 04/18/21 06/05/23 [Silvadene Cream] Omeprazole 40 mg PO DAILY 07/27/21 06/05/23 lisinopriL [Zestril] 20 mg PO DAILY 07/27/21 06/05/23 Brimonidine Tartrate/Timolol 1 drop BOTH EYES BID 09/06/21 06/05/23 [Combigan 0.2%-0.5% Eye Drops] Latanoprost/Pf [Latanoprost 0.005% 1 drop BOTH EYES DIRECTED 09/06/21 06/05/23 Eye Drop] Insulin Aspart Prot/Insuln Asp 15 units SQ HS 09/14/22 06/05/23 [Relion Novolog Mix 70-30 Vial] Insulin Aspart Prot/Insuln Asp 25 units SQ DAILY 09/14/22 06/05/23 [Relion Novolog Mix 70-30 Vial] Meclizine [Antivert] 25 mg PO TID PRN 09/14/22 06/05/23 ALPRAZolam [Xanax] 0.25 mg PO HS 06/05/23 06/05/23 Cetirizine HCl [Zyrtec] 10 mg PO DAILY PRN 06/05/23 06/05/23 Erythromycin 0.5% Ophth Oint 1 drop LEFT EYE HS 06/05/23 06/05/23 (5gm/Gm) Gabapentin [Neurontin] 300 mg PO BID 06/05/23 06/05/23 HYDROcodone/APAP 5-325MG [[place] 1 tab PO Q6HR 06/05/23 06/05/23 5-325] Ketorolac 0.5% Ophth Soln [Acular 1 drop RIGHT EYE DIRECTED 06/05/23 06/05/23 0.5%] Mupirocin 2% Oint [Bactroban 2% 1 applic TOPICAL BID PRN 06/05/23 06/05/23 Oint] prednisoLONE ACETATE 1% OPHTH 1 drop LEFT EYE BID 06/05/23 06/05/23 [Pred Forte 1%] Previous Rx's Medication Instructions Recorded Isosorbide Mononitrate ER [Imdur] 30 mg PO DAILY #30 tab 04/19/21 Nitroglycerin Sl Tabs [Nitrostat] 0.4 mg SUBLINGUAL Q5M PRN tab 05/15/22 Allergies Allergy/AdvReac Type Severity Reaction Status Date / Time amoxicillin [From Augmentin] Allergy Rash/Hives Verified 06/05/23 17:01 clavulanic acid Allergy Rash/Hives Verified 06/05/23 17:01 [From Augmentin] Review of Systems ROS Statement: Those systems with pertinent positive or pertinent negative responses have been documented in the HPI. ROS Other: All systems not noted in ROS Statement are negative. Constitutional: Denies: fever, chills, weakness Eyes: Reports: eye discharge. Denies: eye pain, vision change ENT: Reports: congestion. Denies: ear pain, throat pain Respiratory: Denies: cough, dyspnea Cardiovascular: Reports: as per HPI, chest pain. Denies: palpitations, orthopnea, edema, syncope Gastrointestinal: Reports: as per HPI, abdominal pain. Denies: nausea, vomiting, diarrhea Genitourinary: Denies: dysuria, hematuria Musculoskeletal: Denies: back pain Skin: Denies: rash Neurological: Denies: headache, weakness, numbness Past Medical History Past Medical History: Coronary Artery Disease (CAD), Cancer, Diabetes Mellitus, GERD/Reflux, Hypertension, Osteoarthritis (OA) Additional Past Medical History / Comment(s): NIDDM type II, 1999 LEUKEMIA (CLL- remission), sinus problems, seasonal allergies, tinnitis bilaterally, OA hands, R wrist carpal tunnel, past fx with L elbow, R rotator cuff tendon problems, L rotator cuff tear, left knee pain History of Any Multi-Drug Resistant Organisms: None Reported Past Surgical History: Heart Catheterization, Orthopedic Surgery Additional Past Surgical History / Comment(s): LEFT HAND thumb tendon repair. L knee surgery. Past Anesthesia/Blood Transfusion Reactions: No Reported Reaction Past Psychological History: No Psychological Hx Reported Smoking Status: Never smoker Past Alcohol Use History: None Reported Past Drug Use History: None Reported - Past Family History Father Family Medical History: CVA/TIA Additional Family Medical History / Comment(s): Father at the age of 85yrs. Mother Family Medical History: Diabetes Mellitus Additional Family Medical History / Comment(s): Mother at the age of 90yrs. General Exam Limitations: no limitations General appearance: alert, in no apparent distress Head exam: Present: atraumatic, normocephalic Eye exam: Present: PERRL, EOMI, other (The patient does appear to have some blepharitis of the left lids. Very minimal conjunctival injection. There is no globe pain. There is no pain with extraocular movement. He states his vision has markedly improved) ENT exam: Present: normal oropharynx Neck exam: Present: normal inspection, full ROM. Absent: tenderness, meningismus Respiratory exam: Present: normal lung sounds bilaterally. Absent: respiratory distress, wheezes, rales, rhonchi, stridor Cardiovascular Exam: Present: normal rhythm, bradycardia, normal heart sounds. Absent: systolic murmur, diastolic murmur, rubs, gallop GI/Abdominal exam: Present: soft. Absent: distended, tenderness, guarding, rebound, rigid, mass Extremities exam: Present: normal inspection, normal capillary refill. Absent: pedal edema, calf tenderness Back exam: Present: normal inspection. Absent: CVA tenderness (R), CVA tenderness (L) Neurological exam: Present: alert Skin exam: Present: warm, dry, intact, normal color. Absent: rash Course Vital Signs 06/05/23 06/05/23 06/05/23 15:01 16:06 17:59 Temperature 98.3 F 97.9 F Pulse Rate 53 L 47 L 46 L Respiratory 18 18 18 Rate Blood Pressure 131/59 132/71 137/62 O2 Sat by Pulse 99 97 96 Oximetry 06/05/23 06/05/23 20:02 20:53 Temperature 98.1 F Pulse Rate 47 L Respiratory 16 Rate Blood Pressure 133/79 O2 Sat by Pulse 99 Oximetry EKG Findings - EKG Results: EKG: interpreted by ERMD, sinus rhythm EKG shows: bradycardia (Rate 51 bpm) - Blocks, [place], Hypertrophy, ST Abn: QRS axis and voltage: left axis deviation (-30 to -90) (Borderline left axis) Chamber hypertrophy or enlargement: only voltage criteria for left ventricular hypertrophy Medical Decision Making - Medical Decision Making The patient had chest x-ray which I interpreted as negative for acute infiltrate, pneumothorax, acute bony injury The patient had computed tomography scan of the abdomen and pelvis which I in terpreted as negative for obstruction, free air. The patient had CT of the brain which I interpreted as negative for acute bony injury or intracranial hemorrhage. Was pt. sent in by a medical professional or institution (, PA, EXTRACORPOREAL CIRCULATION SPECIALIST, urgent care, hospital, or fci...) When possible be specific @ -[No] Did you speak to anyone other than the patient for history (EMS, parent, family, police, friend...)? What history was obtained from this source @ -[No] Did you review nursing and triage notes (agree or disagree)? Why? @ -[I reviewed and agree with nursing and triage notes] Were old charts reviewed (outside hosp., previous admission, EMS record, old EK G, old radiological studies, urgent care reports/EKG's, fci records)? Report findings @ -[No old charts were reviewed] Differential Diagnosis (chest pain, altered mental status, abdominal pain women, abdominal pain men, vaginal bleeding, weakness, fever, dyspnea, syncope, headache, dizziness, GI bleed, back pain, seizure, CVA, palpatations, mental he alth, musculoskeletal)? @ -[Differential Headache: Migraine, tension, cluster, carbon monoxide, central venous thrombosis, pension karma temporal arteritis, acute closure glaucoma, intercranial hemorrhage, mastoiditis, sinusitis, head injury, this is not meant to be an all-inclusive list. Differential Abdominal Pain Women: Appendicitis, Cholecystitis, diverticulosis, ischemic bowel, pancreatitis, hepatitis, UTI, gastroenteritis, AAA, incarcerated hernia, bowel obstruction, c onstipation, inflammatory bowel, hepatitis, peptic ulcer disease, splenic infarction, perforated viscus, vulvitis, ovarian torsion, PID, kidney stone, placenta abruption, this is not meant to be an all-inclusive list EKG interpreted by me (3pts min.). @ -[I interpreted As above] X-rays interpreted by me (1pt min.). @ -[I interpreted as above CT interpreted by me (1pt min.). @ -[I interpreted as above U/S interpreted by me (1pt. min.). @ -[None done] What testing was considered but not performed or refused? (CT, X-rays, U/S, labs)? Why? @ -[None] What meds were considered but not given or refused? Why? @ -[None] Did you discuss the management of the patient with other professionals (professionals i.e. , PA, EXTRACORPOREAL CIRCULATION SPECIALIST, lab, RT, psych nurse, marriage and family social worker, director life insurance, teacher, staff mine warfare officer, hospice case manager)? Give summary @ -[No] Was smoking cessation discussed for >3mins.? @ -[No] Was critical care preformed (if so, how long)? @ -[No] Were there social determinants of health that impacted care today? How? (Homelessness, low income, unemployed, alcoholism, drug addiction, transportation, low edu. Level, literacy, decrease access to med. care, long-term, rehab)? @ -[No] Was there de-escalation of care discussed even if they declined (Discuss DNR or withdrawal of care, Hospice)? DNR status @ -[No] What co-morbidities impacted this encounter? (DM, HTN, Smoking, COPD, CAD, Cancer, CVA, ARF, Chemo, Hep., AIDS, mental health diagnosis, sleep apnea, morbid obesity)? @ -[None] Was patient admitted / discharged? Hospital course, mention meds given and route, prescriptions, significant lab abnormalities, going to OR and other pertinent info. @ -[This patient is a 78-year-old man presenting with mild exacerbation of chronic headache, for which he is scheduled to see the specialist coming up. The patient's workup related to that is unremarkable. No signs of more serious etiology such as cavernous sinus thrombosis. At this point recommend patient to continue with the specialist as scheduled though may benefit from seeing neurology, and this was discussed. The patient also having left upper quadrant abdominal pain and at this point there does not appear to be serious underlying condition related to that, though will have patient have close follow-up and discussed the return parameters related to abdominal pain as well. Undiagnosed new problem with uncertain prognosis? @ -[No] Drug Therapy requiring intensive monitoring for toxicity (Heparin, Nitro, Insulin, Cardizem)? @ -[No] Were any procedures done? @ -[No] Diagnosis/symptom? @ -[Acute on chronic headache Acute left upper quadrant abdominal pain Acute, or Chronic, or Acute on Chronic? @ -[default] Uncomplicated (without systemic symptoms) or Complicated (systemic symptoms)? @ -[Uncomplicated Side effects of treatment? @ -[No] Exacerbation, Progression, or Severe Exacerbation? @ -[No] Poses a threat to life or bodily function? How? (Chest pain, [place], [place], pneumonia, PE, COPD, DKA, ARF, appy, cholecystitis, CVA, Diverticulitis, Homicidal, Suicidal, threat to staff... and all critical care pts) @ -[No] - Lab Data Result diagrams: 06/05/23 15:27 06/05/23 15:27 Lab Results 06/05/23 06/05/23 06/05/23 Range/Units 15:27 15: 15: WBC 20.3 H (3.8-10.6) k/uL RBC 3.90 L (4.30-5.90) m/uL Hgb 12.5 L (13.0-17.5) gm/dL Hct 36.3 L (39.0-53.0) % MCV 92.9 (80.0-100.0) fL MCH 32.0 (25.0-35.0) pg MCHC 34.4 (31.0-37.0) g/dL RDW 14.4 (11.5-15.5) % Plt Count 109 L (150-450) k/uL MPV 8.5 Neutrophils % (Manual) 17 % Lymphocytes % (Manual) 78 % Monocytes % (Manual) 4 % Eosinophils % (Manual) 1 % Neutrophils # (Manual) 3.45 (1.3-7.7) k/uL Lymphocytes # (Manual) 15.83 H (1.0-4.8) k/uL Monocytes # (Manual) 0.81 (0-1.0) k/uL Eosinophils # (Manual) 0.20 (0-0.7) k/uL Nucleated RBCs 0 (0-0) /100 WBC Manual Slide Review Performed PT 11.9 (9.0-12.0) sec INR 1.1 (<1.2) APTT 23.9 (22.0-30.0) sec Sodium 135 L (137-145) mmol/L Potassium 4.0 (3.5-5.1) mmol/L Chloride 100 (98-107) mmol/L Carbon Dioxide 25 (22-30) mmol/L Anion Gap 10 mmol/L BUN 15 (9-20) mg/dL Creatinine 0.70 (0.66-1.25) mg/dL Est GFR (CKD-EPI)AfAm >90 (>60 ml/min/1.73 sqM) Est GFR (CKD-EPI)NonAf >90 (>60 ml/min/1.73 sqM) Glucose 192 H (74-99) mg/dL Calcium 8.9 (8.4-10.2) mg/dL Magnesium 1.8 (1.6-2.3) mg/dL Total Bilirubin 1.3 (0.2-1.3) mg/dL AST 25 (17-59) U/L ALT 19 (4-49) U/L Alkaline Phosphatase 104 (38-126) U/L Troponin I (0.000-0.034) ng/mL C-Reactive Protein (<1.0) mg/dL NT-Pro-B Natriuret Pep 666 pg/mL Total Protein 6.0 L (6.3-8.2) g/dL Albumin 3.9 (3.5-5.0) g/dL Amylase (30-110) U/L Lipase (23-300) U/L Urine Color Urine Appearance (Clear) Urine pH (5.0-8.0) Ur Specific [place] (1.001-1.035) Urine Protein (Negative) Urine Glucose (UA) (Negative) Urine Ketones (Negative) Urine Blood (Negative) Urine Nitrite (Negative) Urine Bilirubin (Negative) Urine Urobilinogen (<2.0) mg/dL Ur Leukocyte Esterase (Negative) 06/05/23 06/05/23 06/05/23 Range/Units 15:27 15:27 17:03 WBC (3.8-10.6) k/uL RBC (4.30-5.90) m/uL Hgb (13.0-17.5) gm/dL Hct (39.0-53.0) % MCV (80.0-100.0) fL MCH (25.0-35.0) pg MCHC (31.0-37.0) g/dL RDW (11.5-15.5) % Plt Count (150-450) k/uL MPV Neutrophils % (Manual) % Lymphocytes % (Manual) % Monocytes % (Manual) % Eosinophils % (Manual) % Neutrophils # (Manual) (1.3-7.7) k/uL Lymphocytes # (Manual) (1.0-4.8) k/uL Monocytes # (Manual) (0-1.0) k/uL Eosinophils # (Manual) (0-0.7) k/uL Nucleated RBCs (0-0) /100 WBC Manual Slide Review PT (9.0-12.0) sec INR (<1.2) APTT (22.0-30.0) sec Sodium (137-145) mmol/L Potassium (3.5-5.1) mmol/L Chloride (98-107) mmol/L Carbon Dioxide (22-30) mmol/L Anion Gap mmol/L BUN (9-20) mg/dL Creatinine (0.66-1.25) mg/dL Est GFR (CKD-EPI)AfAm (>60 ml/min/1.73 sqM) Est GFR (CKD-EPI)NonAf (>60 ml/min/1.73 sqM) Glucose (74-99) mg/dL Calcium (8.4-10.2) mg/dL Magnesium (1.6-2.3) mg/dL Total Bilirubin (0.2-1.3) mg/dL AST (17-59) U/L ALT (4-49) U/L Alkaline Phosphatase (38-126) U/L Troponin I <0.012 (0.000-0.034) ng/mL C-Reactive Protein (<1.0) mg/dL NT-Pro-B Natriuret Pep pg/mL Total Protein (6.3-8.2) g/dL Albumin (3.5-5.0) g/dL Amylase 44 (30-110) U/L Lipase 77 (23-300) U/L Urine Color Yellow Urine Appearance Clear (Clear) Urine pH 6.0 (5.0-8.0) Ur Specific [place] 1.009 (1.001-1.035) Urine Protein Negative (Negative) Urine Glucose (UA) Trace H (Negative) Urine Ketones Negative (Negative) Urine Blood Negative (Negative) Urine Nitrite Negative (Negative) Urine Bilirubin Negative (Negative) Urine Urobilinogen 2.0 (<2.0) mg/dL Ur Leukocyte Esterase Negative (Negative) 06/05/23 Range/Units 19:40 WBC (3.8-10.6) k/uL RBC (4.30-5.90) m/uL Hgb (13.0-17.5) gm/dL Hct (39.0-53.0) % MCV (80.0-100.0) fL MCH (25.0-35.0) pg MCHC (31.0-37.0) g/dL RDW (11.5-15.5) % Plt Count (150-450) k/uL MPV Neutrophils % (Manual) % Lymphocytes % (Manual) % Monocytes % (Manual) % Eosinophils % (Manual) % Neutrophils # (Manual) (1.3-7.7) k/uL Lymphocytes # (Manual) (1.0-4.8) k/uL Monocytes # (Manual) (0-1.0) k/uL Eosinophils # (Manual) (0-0.7) k/uL Nucleated RBCs (0-0) /100 WBC Manual Slide Review PT (9.0-12.0) sec INR (<1.2) APTT (22.0-30.0) sec Sodium (137-145) mmol/L Potassium (3.5-5.1) mmol/L Chloride (98-107) mmol/L Carbon Dioxide (22-30) mmol/L Anion Gap mmol/L BUN (9-20) mg/dL Creatinine (0.66-1.25) mg/dL Est GFR (CKD-EPI)AfAm (>60 ml/min/1.73 sqM) Est GFR (CKD-EPI)NonAf (>60 ml/min/1.73 sqM) Glucose (74-99) mg/dL Calcium (8.4-10.2) mg/dL Magnesium (1.6-2.3) mg/dL Total Bilirubin (0.2-1.3) mg/dL AST (17-59) U/L ALT (4-49) U/L Alkaline Phosphatase (38-126) U/L Troponin I (0.000-0.034) ng/mL C-Reactive Protein <0.5 (<1.0) mg/dL NT-Pro-B Natriuret Pep pg/mL Total Protein (6.3-8.2) g/dL Albumin (3.5-5.0) g/dL Amylase (30-110) U/L Lipase (23-300) U/L Urine Color Urine Appearance (Clear) Urine pH (5.0-8.0) Ur Specific [place] (1.001-1.035) Urine Protein (Negative) Urine Glucose (UA) (Negative) Urine Ketones (Negative) Urine Blood (Negative) Urine Nitrite (Negative) Urine Bilirubin (Negative) Urine Urobilinogen (<2.0) mg/dL Ur Leukocyte Esterase (Negative) Disposition Clinical Impression: Headache, Abdominal pain Disposition: HOME SELF-CARE Condition: Good Instructions (If sedation given, give patient instructions): Acute Headache (ED) Is patient prescribed a controlled substance at d/c from ED?: No Referrals: Edgard Schneider DO [Primary Care Provider] - 1-2 days Deanna Taylor MD [REFERRING] - 1-2 days
[2023-06-05] MEDS ORDERED: HYDROcodone/APAP 5-325MG 1 EACH TAB PO STA (15:54)
[2023-06-05] MEDS ORDERED: MAG HYDROX/AL HYDROX/SIMETH 30 ML, HYOSCYAMINE ELIXIR 10 ML, LIDOCAINE 2% GLYDO JELLY 1... PO STA ×3 (15:54)
[2023-06-05 16:07] LABS: HCT 36.3 % (39.0-53.0); HGB 12.5 gm/dL (13.0-17.5); MCHC 34.4 g/dL (31.0-37.0); MCV 92.9 fL (80.0-100.0); Mean Platelet Volume 8.5; Platelet Count 109 k/uL (150-450); RDW 14.4 % (11.5-15.5); WBC 20.3 k/uL (3.8-10.6)
[2023-06-05 16:11] LABS: ALT 19 U/L (4-49); AST 25 U/L (17-59); African American GFR (CKD) >90 (>60 ml/min/1.73 sqM); Albumin 3.9 g/dL (3.5-5.0); Alkaline Phosphatase 104 U/L (38-126); Anion Gap 10 mmol/L; Blood Urea Nitrogen 15 mg/dL (9-20); Calcium 8.9 mg/dL (8.4-10.2); Carbon Dioxide 25 mmol/L (22-30); Chloride 100 mmol/L (98-107); Glucose 192 mg/dL (74-99); Magnesium 1.8 mg/dL (1.6-2.3); Non-African American GFR(CKD) >90 (>60 ml/min/1.73 sqM); Sodium 135 mmol/L (137-145); Total Bilirubin 1.3 mg/dL (0.2-1.3)
--- NOTE | 2023-06-05 16:18 | XR ---
EXAMINATION TYPE: XR chest 2V DATE OF EXAM: 06/05/2023 4:13 PM COMPARISON: Chest radiographs from 02/08/2023 TECHNIQUE: XR chest 2V Frontal and lateral views of the chest. CLINICAL INDICATION:Male, 78 years old with history of Chest Pain; FINDINGS: Lungs/Pleura: There is no evidence of pleural effusion, focal consolidation, or pneumothorax. Pulmonary vascularity: Unremarkable. Heart/mediastinum: Cardiomediastinal silhouette is unremarkable. Musculoskeletal: No acute osseous pathology. IMPRESSION: Low lung volumes with a generalized hazy appearance which could represent atelectasis versus pulmonar y edema correlate with serum BNP.
[2023-06-05 16:20] LABS: NT-Pro-B-Type Natriuretic Pept 666 pg/mL
[2023-06-05 16:27] LABS: INR 1.1 (<1.2); Partial Thromboplastin Time 23.9 sec (22.0-30.0); Prothrombin Time 11.9 sec (9.0-12.0)
[2023-06-05 17:15] LABS: Appearance,Urine Clear (Clear); Bilirubin,Urine Negative (Negative); Blood,Urine Negative (Negative); Color,Urine Yellow; Glucose,Urine (UA) Trace (Negative); Ketones,Urine Negative (Negative); Leukocyte Esterase,Urine Negative (Negative); Nitrite,Urine Negative (Negative); Protein,Urine Negative (Negative); Specific Gravity,Urine 1.009 (1.001-1.035)
[2023-06-05 17:18] LABS: Lymphocytes # (M) 15.83 k/uL (1.0-4.8); Monocytes # (M) 0.81 k/uL (0-1.0); Neutrophils # (M) 3.45 k/uL (1.3-7.7); Neutrophils % (M) 17 %; Nucleated Red Blood Cells 0 /100 WBC (0-0); Total Cells Counted 100
--- NOTE | 2023-06-05 18:33 | CT ---
EXAMINATION TYPE: CT abdomen pelvis w con DATE OF EXAM: 06/05/2023 COMPARISON: 04/06/2022 HISTORY: RUQ/epigastric pain CT DLP: 1488.5 mGycm CONTRAST: CT scan of the abdomen and pelvis is performed without Oral Contrast and with IV Contrast, patient in jected with 100 mL of Isovue 300. FINDINGS: LUNG BASES-: No visible nodule. No infiltrate. There is evidence of cardiomegaly. Small hiatal herni a. LIVER/GB: There is evidence of gallbladder sludge or small stones. No space occupying hepatic lesion. Biliary tree is of normal caliber. PANCREAS: No inflammation. No distinct mass. SPLEEN: No splenic enlargement. No lesion seen. ADRENALS: No nodule. No thickening. KIDNEYS/BLADDER: No hydronephrosis. No nephrolithiasis. No distinct renal mass. Urinary bladder g rossly unremarkable. BOWEL: Normal appendix. Normal bowel caliber. No inflammation. GENITAL ORGANS: No gross abnormality. LYMPH NODES: No greater than 1cm abdominal or pelvic lymph nodes are appreciated. AORTA: No significant abnormality. OSSEOUS STRUCTURES: No significant abnormality is seen. OTHER: No significant additional abnormality is seen. IMPRESSION: 1. No acute process seen
[2023-06-05 18:43] LABS: Amylase 44 U/L (30-110); Lipase 77 U/L (23-300)
--- NOTE | 2023-06-05 19:14 | CT ---
EXAMINATION TYPE: CT brain wo con DATE OF EXAM: 06/05/2023 COMPARISON: 02/05/2023 HISTORY: pt c/o persistent headache. pt was just injected with IV contrast [address] currie wanted the scan CT DLP: 1194.[address] of the brain was performed. The ventricles, basal cisterns and sulci overlying the cerebral convexities demonstrate mild enlargem ent. Contrast noted from recent CT abdomen pelvis. There is no evidence for intracranial hemorrhage or sulcal effacement. There is decreased attenuation about the periventricular white matter and deep white matter of both c erebral hemispheres, compatible with chronic small vessel ischemia. Differential diagnosis does inclu de demyelination. No mass effects are seen.No midline shift. Osseous calvarium is intact. If symptoms persist consider MRI. IMPRESSION: 1. Age related atrophic and chronic small vessel ischemic change without acute intracranial process s een at this time.
[2023-06-05] MEDS ORDERED: METOCLOPRAMIDE 5 MG/ML 2 ML VIAL IVP STA (19:51)
[2023-06-05] MEDS ORDERED: methylPREDNISolone SOD SUCCI 125 MG/2 ML VIAL IV STA (19:51)
[2023-06-05 20:03] VITALS: PULSE 47; RESP 16; TEMP 98.1
[2023-06-05 20:53] VITALS: BP 133/79
== END 2023-06-05 20:55 | disposition home or self-care (01) ==
LOC: EC 14:56
DX: I67.82 Cerebral ischemia (principal); R51.9 Headache, unspecified; R10.9 Unspecified abdominal pain; H01.006 Unspecified blepharitis left eye, unspecified eyelid; R00.1 Bradycardia, unspecified; I25.10 Atherosclerotic heart disease of native coronary artery without angina pectoris; E11.9 Type 2 diabetes mellitus without complications; K21.9 Gastro-esophageal reflux disease without esophagitis; I10 Essential (primary) hypertension; M19.90 Unspecified osteoarthritis, unspecified site; Z79.1 Long term (current) use of non-steroidal anti-inflammatories (NSAID); Z79.899 Other long term (current) drug therapy; Z79.4 Long term (current) use of insulin; Z88.0 Allergy status to penicillin; Z88.6 Allergy status to analgesic agent; Z88.1 Allergy status to other antibiotic agents
CPT/HCPCS: 36415; 93005; 83880; 80053; 82150; 83690; 83735; 84484; 85025; 85610; 85730; 86140; 81003; 71046; 70450; 74177; 99285; 96374; J2930; Q9967

== ENCOUNTER → 2023-06-28 | Outpatient (CLI) | payer MEDICARE ==
--- NOTE | 2023-06-28 18:32 | CT ---
EXAMINATION TYPE: CT sinus wo con DATE OF EXAM: 06/28/2023 COMPARISON: 04/05/2022 HISTORY: chronic sinusitis CT DLP: 464 mGycm CONTRAST: 0 mL of Isovue 300 The paranasal sinuses are examined in the axial plane at 2 mm thick sections. Reconstructed images i n the coronal plane were obtained. Findings: The maxillary sinuses are clear. The ethmoid air cells are clear. The sphenoid sinuses are clear. The frontal sinuses are clear. The septum is evaluated. There is septal deviation to the right. The ostiomeatal units are patent. Small kristian bullosa are present Mastoid air cells are clear. No acute fractures are identified. IMPRESSION: 1. No suspicious changes to suggest acute or chronic sinusitis.
== END | disposition home or self-care (01) ==
LOC: RADCTMAIN 16:44
PROVIDERS: ATTEND Otolaryngology
DX: J31.1 Chronic nasopharyngitis (principal)
CPT/HCPCS: 70486

== ENCOUNTER 2023-08-14 02:16 | Emergency (ER) | payer MEDICARE ==
[2023-08-14 02:40] VITALS: TEMP 97
--- NOTE | 2023-08-14 02:50 | ED ---
Chest Pain HPI - General Chief Complaint: Chest Pain Stated Complaint: Chest Pain Time Seen by Provider: 08/14/23 02:18 Source: patient, EMS, RN notes reviewed, old records reviewed Mode of arrival: EMS - History of Present Illness Initial Comments: This is a 78-year-old male to the emergency department for evaluation. Patient presents today for evaluation of dizziness. Dizziness and chest pain. Patient has recurrent visits to the ER today for evaluation of chest pain with prior history of chest pain. Patient complaining of dizziness with recent diagnosis of sinus infection patient has seen a sinus infection. Nose and throat doctor and is being treated for that. He believes that is the cause of his dizziness. He is also complaining of some headaches MD Complaint: chest pain, other (Dizziness nausea headache) -: days(s) Pain Location: substernal, left chest Pain Radiation: none Severity: mild Severity scale (1-10): 2 Quality: heaviness Consistency: intermittent Improves With: nothing Worsens With: nothing Other Symptoms: cough, palpitations Treatments Prior to Arrival: none - Related Data Home Medications Medication Instructions Recorded Confirmed Montelukast Sodium [Singulair] 10 mg PO DAILY 05/25/17 06/05/23 Fluticasone Nasal [place] [Flonase 1 spr EA NOSTRIL DAILY PRN 01/24/21 06/05/23 Nasal [place]] Atorvastatin [Lipitor] 80 mg PO DAILY 03/08/21 06/05/23 SILVER sulfADIAZINE CREAM 1 applic TOPICAL BID PRN 04/18/21 06/05/23 [Silvadene Cream] Omeprazole 40 mg PO DAILY 07/27/21 06/05/23 lisinopriL [Zestril] 20 mg PO DAILY 07/27/21 06/05/23 Brimonidine Tartrate/Timolol 1 drop BOTH EYES BID 09/06/21 06/05/23 [Combigan 0.2%-0.5% Eye Drops] Latanoprost/Pf [Latanoprost 0.005% 1 drop BOTH EYES DIRECTED 09/06/21 06/05/23 Eye Drop] Insulin Aspart Prot/Insuln Asp 15 units SQ HS 09/14/22 06/05/23 [Relion Novolog Mix 70-30 Vial] Insulin Aspart Prot/Insuln Asp 25 units SQ DAILY 09/14/22 06/05/23 [Relion Novolog Mix 70-30 Vial] Meclizine [Antivert] 25 mg PO TID PRN 09/14/22 06/05/23 ALPRAZolam [Xanax] 0.25 mg PO HS 06/05/23 06/05/23 Cetirizine HCl [Zyrtec] 10 mg PO DAILY PRN 06/05/23 06/05/23 Erythromycin 0.5% Ophth Oint 1 drop LEFT EYE HS 06/05/23 06/05/23 (5gm/Gm) Gabapentin [Neurontin] 300 mg PO BID 06/05/23 06/05/23 HYDROcodone/APAP 5-325MG [[place] 1 tab PO Q6HR 06/05/23 06/05/23 5-325] Ketorolac 0.5% Ophth Soln [Acular 1 drop RIGHT EYE DIRECTED 06/05/23 06/05/23 0.5%] Mupirocin 2% Oint [Bactroban 2% 1 applic TOPICAL BID PRN 06/05/23 06/05/23 Oint] prednisoLONE ACETATE 1% OPHTH 1 drop LEFT EYE BID 06/05/23 06/05/23 [Pred Forte 1%] Previous Rx's Medication Instructions Recorded Isosorbide Mononitrate ER [Imdur] 30 mg PO DAILY #30 tab 04/19/21 Nitroglycerin Sl Tabs [Nitrostat] 0.4 mg SUBLINGUAL Q5M PRN tab 05/15/22 Allergies Allergy/AdvReac Type Severity Reaction Status Date / Time amoxicillin [From Augmentin] Allergy Rash/Hives Verified 06/05/23 17:01 clavulanic acid Allergy Rash/Hives Verified 06/05/23 17:01 [From Augmentin] Review of Systems ROS Statement: Those systems with pertinent positive or pertinent negative responses have been documented in the HPI. ROS Other: All systems not noted in ROS Statement are negative. EKG Findings - EKG Comments: EKG Findings:: EKG is sinus bradycardia 54 RI 170 QRS 90 QTC 413 Past Medical History Past Medical History: Coronary Artery Disease (CAD), Cancer, Diabetes Mellitus, GERD/Reflux, Hypertension, Osteoarthritis (OA) Additional Past Medical History / Comment(s): NIDDM type II, 1999 LEUKEMIA (CLL- remission), sinus problems, seasonal allergies, tinnitis bilaterally, OA hands, R wrist carpal tunnel, past fx with L elbow, R rotator cuff tendon problems, L rotator cuff tear, left knee pain History of Any Multi-Drug Resistant Organisms: None Reported Past Surgical History: Heart Catheterization, Orthopedic Surgery Additional Past Surgical History / Comment(s): LEFT HAND thumb tendon repair. L knee surgery. Past Anesthesia/Blood Transfusion Reactions: No Reported Reaction Past Psychological History: No Psychological Hx Reported Smoking Status: Never smoker Past Alcohol Use History: None Reported Past Drug Use History: None Reported - Past Family History Father Family Medical History: CVA/TIA Additional Family Medical History / Comment(s): Father at the age of 85yrs. Mother Family Medical History: Diabetes Mellitus Additional Family Medical History / Comment(s): Mother at the age of 90yrs. General Exam General appearance: alert, in no apparent distress Head exam: Present: atraumatic, normocephalic, normal inspection Eye exam: Present: normal appearance, PERRL, EOMI. Absent: scleral icterus, conjunctival injection, periorbital swelling ENT exam: Present: normal exam, mucous membranes moist Neck exam: Present: normal inspection. Absent: tenderness, meningismus, lymphadenopathy Respiratory exam: Present: normal lung sounds bilaterally. Absent: respiratory distress, wheezes, rales, rhonchi, stridor Cardiovascular Exam: Present: regular rate, normal rhythm, normal heart sounds. Absent: systolic murmur, diastolic murmur, rubs, gallop, clicks GI/Abdominal exam: Present: soft, normal bowel sounds. Absent: distended, tenderness, guarding, rebound, rigid Extremities exam: Present: normal inspection, full ROM, normal capillary refill. Absent: tenderness, pedal edema, joint swelling, calf tenderness Back exam: Present: normal inspection Neurological exam: Present: alert, oriented X3, CN II-XII intact Psychiatric exam: Present: normal affect, normal mood Skin exam: Present: warm, dry, intact, normal color. Absent: rash Course Vital Signs 08/14/23 08/14/23 08/14/23 02:18 02:30 03:30 Temperature 97 F L Pulse Rate 56 L 52 L 52 L Respiratory 17 15 17 Rate Blood Pressure 139/67 139/67 130/66 O2 Sat by Pulse 98 99 98 Oximetry 08/14/23 08/14/23 08/14/23 04:00 04:30 05:28 Temperature Pulse Rate 52 L 54 L 52 L Respiratory 17 18 17 Rate Blood Pressure 130/66 149/73 153/70 O2 Sat by Pulse 96 98 98 Oximetry - Reevaluation(s) Reevaluation #1: 08/14/23 02:56 Record is reviewed Reevaluation #2: 08/14/23 02:56 Patient symptoms unchanged Patient does feel improved no chest pain Reevaluation #3: 08/14/23 02:57 A patient is informed results questions answered Reevaluation #4: 08/14/23 02:57 Was pt. sent in by a medical professional or institution (, NEW, RN TRANSITIONAL CARE, urgent care, hospital, or intermediate...) When possible be specific @ -no Did you speak to anyone other than the patient for history (EMS, parent, family, police, friend...)? What history was obtained from this source @ -no Did you review nursing and triage notes (agree or disagree)? Why? @ -agree Are old charts reviewed (outside hosp., previous admission, EMS record, old EKG, old radiological studies, urgent care reports/EKG's, intermediate records)? Report findings @ -yes Differential Diagnosis (chest pain, altered mental status, abdominal pain women, abdominal pain men, vaginal bleeding, weakness, fever, dyspnea, syncope, headache, dizziness, GI bleed, back pain, seizure, CVA, palpatations, mental health, musculoskeletal)? @ -prior EKG interpreted by me (3pts min.). @ -yes X-rays interpreted by me (1pt min.). @ -yes CT interpreted by me (1pt min.). @ -no U/S interpreted by me (1pt. min.). @ -no What testing was considered but not performed or refused? (CT, X-rays, U/S, labs)? Why? @ -none What meds were considered but not given or refused? Why? @ -none Did you discuss the management of the patient with other professionals (professionals i.e. NEW [facility], RN TRANSITIONAL CARE, lab, RT, psych nurse, social media strategist, forming yardage control operator, teacher, aoc director combat plans officer, keycase assembler)? Give summary @ -no Was smoking cessation discussed for >3mins.? @ -no Was critical care preformed (if so, how long)? @ -no Were there social determinants of health that impacted care today? How? (Homel essness, low income, unemployed, alcoholism, drug addiction, transportation, low edu. Level, literacy, decrease access to med. care, long-term, rehab)? @ -none Was there de-escalation of care discussed even if they declined (Discuss DNR or withdrawal of care, Hospice)? DNR status @ -no What co-morbidities impacted this encounter? (DM, HTN, Smoking, COPD, CAD, Cancer, CVA, ARF, Chemo, Hep., AIDS, mental health diagnosis, sleep apnea, morbid obesity)? @ -none Was patient admitted / discharged? Hospital course, mention meds given and route, prescriptions, significant lab abnormalities, going to OR and other pertinent info. @ - 78 female to the emergency department with weakness nausea vomiting dizziness and chest pain. No acute findings were both found here in the ER patient feels well throughout ER stay. Patient can be discharged home Discharge Undiagnosed new problem with uncertain prognosis? @ -no Drug Therapy requiring intensive monitoring for toxicity (Heparin, Nitro, Insulin, Cardizem)? @ -no Were any procedures done? @ -no Diagnosis/symptom? @ -Chest pain weakness dizziness Acute, or Chronic, or Acute on Chronic? @ -Acute Uncomplicated (without systemic symptoms) or Complicated (systemic symptoms)? @ -Complicated Side effects of treatment? @ -no Exacerbation, Progression, or Severe Exacerbation? @ -exacerbation Poses a threat to life or bodily function? How? (Chest pain, [place], [place], pneumonia, PE, COPD, DKA, ARF, appy, cholecystitis, CVA, Diverticulitis, Homicidal, Suicidal, threat to staff... and all critical care pts) @ -yes Reevaluation #5: 08/14/23 02:57 Differential Chest Pain: Stable Angina, Unstable Angina, STEMI, NSTEMI Aortic Dissection, Pneumothorax, Musculoskeletal, Esophageal Spasm GERD, Cholecystitis, Pancreatitis, Zoster, this is not meant to be an all-inclusive list. Differential Dizziness: Benign paroxysmal positional Vertigo, Menieres disease, otitis media, acoustic neuroma, vertebrobasilar insufficiency, cerebellar stroke, encephalitis, hypovolemic, arrhythmia, coronary artery syndrome, anemia, this is not meant to be an all-inclusive list Chest Pain MDM - MDM 78 female to the emergency department with weakness nausea vomiting dizziness and chest pain. No acute findings were both found here in the ER patient feels well throughout ER stay. Patient can be discharged home Disposition Clinical Impression: Weakness, Dizziness, Chest pain Disposition: HOME SELF-CARE Condition: Fair Instructions (If sedation given, give patient instructions): Chest Pain (ED) Is patient prescribed a controlled substance at d/c from ED?: No Referrals: Edgard Schneider DO [Primary Care Provider] - 1-2 days Time of Disposition: 04:30
[2023-08-14] MEDS ORDERED: MORPHINE SULFATE 4 MG/ML SYRINGE IVP STA (03:21)
[2023-08-14] MEDS ORDERED: ONDANSETRON 4 MG/2 ML VIAL IVP STA (03:21)
[2023-08-14] MEDS ORDERED: MECLIZINE 12.5 MG TAB PO STA (03:21)
[2023-08-14 03:29] LABS: ALT 17 U/L (4-49); AST 18 U/L (17-59); African American GFR (CKD) >90 (>60 ml/min/1.73 sqM); Albumin 3.9 g/dL (3.5-5.0); Alkaline Phosphatase 106 U/L (38-126); Anion Gap 11 mmol/L; Blood Urea Nitrogen 19 mg/dL (9-20); Calcium 9.4 mg/dL (8.4-10.2); Carbon Dioxide 25 mmol/L (22-30); Chloride 102 mmol/L (98-107); Glucose 190 mg/dL (74-99); Lipase 124 U/L (23-300); Magnesium 1.8 mg/dL (1.6-2.3); Non-African American GFR(CKD) >90 (>60 ml/min/1.73 sqM); Potassium 4.3 mmol/L (3.5-5.1); Sodium 138 mmol/L (137-145); Total Bilirubin 0.8 mg/dL (0.2-1.3); Total Protein 6.1 g/dL (6.3-8.2)
[2023-08-14 03:38] LABS: NT-Pro-B-Type Natriuretic Pept 125 pg/mL
[2023-08-14 03:41] LABS: HCT 37.5 % (39.0-53.0); HGB 12.8 gm/dL (13.0-17.5); MCH 32.1 pg (25.0-35.0); MCHC 34.2 g/dL (31.0-37.0); MCV 93.8 fL (80.0-100.0); Mean Platelet Volume 8.9; RBC 3.99 m/uL (4.30-5.90); RDW 13.8 % (11.5-15.5); WBC 17.4 k/uL (3.8-10.6)
[2023-08-14 03:48] LABS: INR 1.1 (<1.2); Partial Thromboplastin Time 24.2 sec (22.0-30.0); Prothrombin Time 11.8 sec (10.0-12.5)
[2023-08-14 04:20] LABS: Platelet Count 99 k/uL (150-450)
--- NOTE | 2023-08-14 05:01 | XR ---
EXAM: XR Chest, 1 View CLINICAL HISTORY: chest pain TECHNIQUE: Frontal view of the chest. COMPARISON: 02/08/23. FINDINGS: Lungs: Unremarkable. No consolidation. Pleural space: Unremarkable. No pneumothorax. Heart: Unremarkable. No cardiomegaly. Mediastinum: Unremarkable. Bones/joints: Unremarkable. Upper abdomen: Dilatation visualized colon are dilated, measuring up to 6.5 cm, suggest colonic ileus. IMPRESSION: Dilatation visualized: Of measuring up to 6.5 cm, suggest colonic ileus. Lungs are clear.
[2023-08-14 05:47] VITALS: BP 153/70; PULSE 52; RESP 17
[2023-08-14 06:33] LABS: Band Neutrophils % 1 %; Lymphocytes # (M) 12.35 k/uL (1.0-4.8); Monocytes # (M) 1.04 k/uL (0-1.0); Neutrophils % (M) 22 %; Nucleated Red Blood Cells 0 /100 WBC (0-0); Total Cells Counted 100
[2023-08-14 06:34] LABS: RBC Morphology Normal
== END 2023-08-14 05:29 | disposition home or self-care (01) ==
LOC: EC 02:16
DX: R53.1 Weakness (principal); R42 Dizziness and giddiness; R07.89 Other chest pain; I25.10 Atherosclerotic heart disease of native coronary artery without angina pectoris; I10 Essential (primary) hypertension; E11.9 Type 2 diabetes mellitus without complications; K21.9 Gastro-esophageal reflux disease without esophagitis; M19.042 Primary osteoarthritis, left hand; Z88.0 Allergy status to penicillin; Z88.1 Allergy status to other antibiotic agents; Z79.4 Long term (current) use of insulin; Z79.899 Other long term (current) drug therapy
CPT/HCPCS: 36415; 93005; 83880; 80053; 83690; 83735; 84484; 85025; 85610; 85730; 71045; 99285; 96374; 96375; J2270; J2405

== ENCOUNTER 2023-10-08 16:08 | Emergency (ER) | payer MEDICARE ==
[2023-10-08] MEDS ORDERED: MORPHINE SULFATE 2 MG/ML SYRINGE IV STA (16:34)
[2023-10-08] MEDS ORDERED: SODIUM CHLORIDE 0.9% 1,000 ML IV ONE (16:34)
[2023-10-08] MEDS ORDERED: DIPH,PERTUS(ACELL)TETVAC-LF 0.5 ML VIAL IM ONE (16:36)
[2023-10-08 16:37] VITALS: TEMP 98.1
--- NOTE | 2023-10-08 16:54 | ED ---
General Adult HPI - General Chief complaint: Fall Stated complaint: Fall Time Seen by Provider: 10/08/23 16:14 Source: patient, RN notes reviewed, old records reviewed Mode of arrival: EMS Limitations: no limitations - History of Present Illness Initial comments: Patient is a 78 year old male presents emergency Department complaining of a fall. Patient has a history of retinal issues, hypertension, diabetes, CAD. Is not on blood thinners. States he ambulates with a walker at baseline. Was attempting to remove water from the back of his trunk of his car when he stepped on monitor something slippery [place] his balance falling onto his left side. At the back of his head. Currently is complaining of mild pain in the back of his head, mid back, little bit in the neck. Also complaining of pain of the left shoulder but has good range of motion as well as left hip and knee with some reduced range of motion secondary to pain. Denies any chest pain or shortness breath. Denies any abdominal pain, nausea, vomiting. Otherwise resting comfortably. Presents for further evaluation at this time. Is not up-to-date on tetanus. Did not lose consciousness. - Related Data Home Medications Medication Instructions Recorded Confirmed Montelukast Sodium [Singulair] 10 mg PO DAILY 05/25/17 06/05/23 Fluticasone Nasal [place] [Flonase 1 spr EA NOSTRIL DAILY PRN 01/24/21 06/05/23 Nasal [place]] Atorvastatin [Lipitor] 80 mg PO DAILY 03/08/21 06/05/23 SILVER sulfADIAZINE CREAM 1 applic TOPICAL BID PRN 04/18/21 06/05/23 [Silvadene Cream] Omeprazole 40 mg PO DAILY 07/27/21 06/05/23 lisinopriL [Zestril] 20 mg PO DAILY 07/27/21 06/05/23 Brimonidine Tartrate/Timolol 1 drop BOTH EYES BID 09/06/21 06/05/23 [Combigan 0.2%-0.5% Eye Drops] Latanoprost/Pf [Latanoprost 0.005% 1 drop BOTH EYES DIRECTED 09/06/21 06/05/23 Eye Drop] Insulin Aspart Prot/Insuln Asp 15 units SQ HS 09/14/22 06/05/23 [Relion Novolog Mix 70-30 Vial] Insulin Aspart Prot/Insuln Asp 25 units SQ DAILY 09/14/22 06/05/23 [Relion Novolog Mix 70-30 Vial] Meclizine [Antivert] 25 mg PO TID PRN 09/14/22 06/05/23 ALPRAZolam [Xanax] 0.25 mg PO HS 06/05/23 06/05/23 Cetirizine HCl [Zyrtec] 10 mg PO DAILY PRN 06/05/23 06/05/23 Erythromycin 0.5% Ophth Oint 1 drop LEFT EYE HS 06/05/23 06/05/23 (5gm/Gm) Gabapentin [Neurontin] 300 mg PO BID 06/05/23 06/05/23 HYDROcodone/APAP 5-325MG [[place] 1 tab PO Q6HR 06/05/23 06/05/23 5-325] Ketorolac 0.5% Ophth Soln [Acular 1 drop RIGHT EYE DIRECTED 06/05/23 06/05/23 0.5%] Mupirocin 2% Oint [Bactroban 2% 1 applic TOPICAL BID PRN 06/05/23 06/05/23 Oint] prednisoLONE ACETATE 1% OPHTH 1 drop LEFT EYE BID 06/05/23 06/05/23 [Pred Forte 1%] Previous Rx's Medication Instructions Recorded Isosorbide Mononitrate ER [Imdur] 30 mg PO DAILY #30 tab 04/19/21 Nitroglycerin Sl Tabs [Nitrostat] 0.4 mg SUBLINGUAL Q5M PRN tab 05/15/22 Allergies Allergy/AdvReac Type Severity Reaction Status Date / Time amoxicillin [From Augmentin] Allergy Rash/Hives Verified 10/08/23 16:17 clavulanic acid Allergy Rash/Hives Verified 10/08/23 16:17 [From Augmentin] Review of Systems ROS Statement: Those systems with pertinent positive or pertinent negative responses have been documented in the HPI. Review of Systems: CONST: Denies fever EYES: Denies blurry vision ENT: Denies nasal congestion C/V: Denies Chest pain RESP: Denies shortness of breath GI: Denies abdominal pain : Denies dysuria SKIN: Denies rash. MSK: Endorses back pain, left shoulder pain, left hip pain. NEURO: Denies headache ROS Other: All systems not noted in ROS Statement are negative. Past Medical History Past Medical History: Coronary Artery Disease (CAD), Cancer, Diabetes Mellitus, GERD/Reflux, Hypertension, Osteoarthritis (OA) Additional Past Medical History / Comment(s): NIDDM type II, 1999 LEUKEMIA (CLL- remission), sinus problems, seasonal allergies, tinnitis bilaterally, OA hands, R wrist carpal tunnel, past fx with L elbow, R rotator cuff tendon problems, L rotator cuff tear, left knee pain History of Any Multi-Drug Resistant Organisms: None Reported Past Surgical History: Heart Catheterization, Orthopedic Surgery Additional Past Surgical History / Comment(s): LEFT HAND thumb tendon repair. L knee surgery. Past Anesthesia/Blood Transfusion Reactions: No Reported Reaction Past Psychological History: No Psychological Hx Reported Smoking Status: Never smoker Past Alcohol Use History: None Reported Past Drug Use History: None Reported - Past Family History Father Family Medical History: CVA/TIA Additional Family Medical History / Comment(s): Father at the age of 85yrs. Mother Family Medical History: Diabetes Mellitus Additional Family Medical History / Comment(s): Mother at the age of 90yrs. General Exam - General Exam Comments Initial Comments: General: Appears in no acute distress. HEAD: Small contusion to the posterior scalp with no obvious bleeding. Negative sanchez sign. Negative raccoon eyes. EYES: PERRLA, EOMI, conjunctiva normal, no discharge. Pupils are 2 mm equal bilaterally. ENT: Hearing grossly intact, normal oropharynx. RESPIRATORY: Clear breath sounds bilaterally. No wheezes, rales, or rhonchi. C/V: Regular rate and rhythm. S1 and S2 auscultated, no edema, peripheral pulses 2+ and intact throughout ABD: Abd is soft, nontender, nondistended EXT: Normal range of motion, no obvious deformity. Tenderness to palpation over the left hip, anterior left knee, as well as anterior left shoulder at the distal clavicle. Very mild tenderness palpation of the midline thoracic spine with no obvious step-offs or deformities. No significant C-spine, L-spine tende rness to palpation in the midline. Pelvis is stable. Normal range of motion of all 4 extremities. SKIN: Small Abrasion over the anterior left knee and a small contusion of the posterior occiput NEURO: Alert and oriented x 4. Moving all 4 extremities. GCS of 15. Limitations: no limitations Course Vital Signs 10/08/23 10/08/23 16:13 18:30 Temperature 98.1 F Pulse Rate 66 57 L Respiratory 20 18 Rate Blood Pressure 138/89 144/71 O2 Sat by Pulse 99 97 Oximetry Medical Decision Making - Medical Decision Making Was pt. sent in by a medical professional or institution (, NEW, SOFTWARE ADMINISTRATOR, urgent care, hospital, or senior living...) When possible be specific @ -No Did you speak to anyone other than the patient for history (EMS, parent, family, police, friend...)? What history was obtained from this source @ -No Did you review nursing and triage notes (agree or disagree)? Why? @ -I reviewed and agree with nursing and triage notes Were old charts reviewed (outside hosp., previous admission, EMS record, old EKG, old radiological studies, urgent care reports/EKG's, senior living records)? Report findings @ -Old charts reviewed Differential Diagnosis (chest pain, altered mental status, abdominal pain women, abdominal pain men, vaginal bleeding, weakness, fever, dyspnea, syncope, headache, dizziness, GI bleed, back pain, seizure, CVA, palpatations, mental health, musculoskeletal)? @ -Differential Musculoskeletal Muscular strain, contusion, ligament sprain, fracture, arthritis, septic arthritis, bursitis, cellulitis, muscle spasm, nerve compression, DVT, arterial occlusion, herpes zoster, electrolyte abnormality, tumor.... This is not meant to be in all inclusive list. Also includes intracranial injury, trauma. EKG interpreted by me (3pts min.). @ -None done X-rays interpreted by me (1pt min.). @ -X-rays of the chest, hip and pelvis, knee negative for any obvious traumatic injury. CT interpreted by me (1pt min.). @ -CT the head, C-spine, T-spine negative for any obvious acute fracture or injury. Degenerative changes present. U/S interpreted by me (1pt. min.). @ -None done What testing was considered but not performed or refused? (CT, X-rays, U/S, labs)? Why? @ -None What meds were considered but not given or refused? Why? @ -None Did you discuss the management of the patient with other professionals (professionals i.e. , NEW, SOFTWARE ADMINISTRATOR, lab, RT, psych nurse, secondary social studies teacher, soda fountain manager, teacher, budget officer, porter sample case)? Give summary @ -No Was smoking cessation discussed for >3mins.? @ -No Was critical care preformed (if so, how long)? @ -No Were there social determinants of health that impacted care today? How? (Homelessness, low income, unemployed, alcoholism, drug addiction, transportation, low edu. Level, literacy, decrease access to med. care, snf, rehab)? @ -No Was there de-escalation of care discussed even if they declined (Discuss DNR or withdrawal of care, Hospice)? DNR status @ -No What co-morbidities impacted this encounter? (DM, HTN, Smoking, COPD, CAD, Cancer, CVA, ARF, Chemo, Hep., AIDS, mental health diagnosis, sleep apnea, morbid obesity)? @ -None Was patient admitted / discharged? Hospital course, mention meds given and route, prescriptions, significant lab abnormalities, going to OR and other pertinent info. @ -Based on the patient's presentation and physical exam, he is a 78-year-old who suffered a mechanical fall from standing is not on blood thinners with no loss of consciousness. Suffering from muscular skeletal pain. Does not meet criteria for any trauma activation. We will obtain imaging as well as basic labs. He was in agreement this plan. Patient will be administered 1 L fluid bolus, tetanus booster, as well as IV morphine. He was in agreement this plan. Vital signs are within acceptable limits. 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 This is within his baseline. Remainder the patient's labs within acceptable limits. Imaging negative for any traumatic injury. Cervical collar was removed. I discussed results with the patient, and he expressed understanding. He'll be discharged home at this time. Strict return precautions discussed. I instructed the patient to follow up with their PCP in the next 1-3 days. I explained that the patient should return to the emergency department if they experience any worsening symptoms. Strict return precautions were discussed with the patient. The patient expressed understanding of these instructions. I answered all questions that the patient had. The patient was discharged home in [good] condition with their prescriptions and follow up information. Undiagnosed new problem with uncertain prognosis? @ -No Drug Therapy requiring intensive monitoring for toxicity (Heparin, Nitro, Insulin, Cardizem)? @ -No Were any procedures done? @ -No Diagnosis/symptom? @ -Muscle strain, contusion, abrasion, fall Acute, or Chronic, or Acute on Chronic? @ -Acute Uncomplicated (without systemic symptoms) or Complicated (systemic symptoms)? @ -Complicated Side effects of treatment? @ -none Exacerbation, Progression, or Severe Exacerbation] @ -no Poses a threat to life or bodily function? @ -no - Lab Data Result diagrams: 10/08/23 17:15 10/08/23 17:15 Lab Results 10/08/23 10/08/23 10/08/23 Range/Units 17:15 17:15 17:15 WBC 20.0 H (3.8-10.6) k/uL RBC 4.26 L (4.30-5.90) m/uL Hgb 13.6 (13.0-17.5) gm/dL Hct 40.3 (39.0-53.0) % MCV 94.7 (80.0-100.0) fL MCH 32.0 (25.0-35.0) pg MCHC 33.8 (31.0-37.0) g/dL RDW 13.7 (11.5-15.5) % Plt Count 89 L (150-450) k/uL MPV 8.3 Neutrophils % SOFTWARE ADMINISTRATOR Neutrophils % (Manual) 23 % Lymphocytes % SOFTWARE ADMINISTRATOR Lymphocytes % (Manual) 73 % Monocytes % SOFTWARE ADMINISTRATOR Monocytes % (Manual) 4 % Eosinophils % SOFTWARE ADMINISTRATOR Basophils % SOFTWARE ADMINISTRATOR Neutrophils # SOFTWARE ADMINISTRATOR Neutrophils # (Manual) 4.60 (1.3-7.7) k/uL Lymphocytes # SOFTWARE ADMINISTRATOR Lymphocytes # (Manual) 14.60 H (1.0-4.8) k/uL Monocytes # SOFTWARE ADMINISTRATOR Monocytes # (Manual) 0.80 (0-1.0) k/uL Eosinophils # SOFTWARE ADMINISTRATOR Basophils # SOFTWARE ADMINISTRATOR Nucleated RBCs 0 (0-0) /100 WBC Manual Slide Review Performed PT 11.5 (10.0-12.5) sec INR 1.1 (<1.2) APTT 21.7 L (22.0-30.0) sec Sodium 137 (137-145) mmol/L Potassium 4.1 (3.5-5.1) mmol/L Chloride 103 (98-107) mmol/L Carbon Dioxide 21 L (22-30) mmol/L Anion Gap 13 mmol/L BUN 14 (9-20) mg/dL Creatinine 0.70 (0.66-1.25) mg/dL Est GFR (CKD-EPI)AfAm >90 (>60 ml/min/1.73 sqM) Est GFR (CKD-EPI)NonAf >90 (>60 ml/min/1.73 sqM) Glucose 207 H (74-99) mg/dL Calcium 9.2 (8.4-10.2) mg/dL - EKG Data -: EKG Interpreted by Me EKG Comments: 12-lead Electrocardiogram Interpretation Note EKG was reviewed and interpreted by myself. 12-lead ECG performed at 1805 is interpreted by me as revealing sinus bradycardia at a rate of 53 beats per minute. [place] is normal. CO interval is 176 ms, QRS duration is 101 ms, QTc is 408 ms.. There were no ST or T wave abnormalities to suggest myocardial ischemia or injury. R wave progression across the precordium was satisfactory. By my interpretation this EKG is non-diagnostic for acute ischemia. Disposition Clinical Impression: Fall, Abrasion, Contusion, Muscle strain Disposition: HOME SELF-CARE Condition: Good Instructions (If sedation given, give patient instructions): Fall Prevention for Older Adults (ED) Is patient prescribed a controlled substance at d/c from ED?: No Referrals: Edgard Schneider DO [Primary Care Provider] - 1-2 days Time of Disposition: 19:54
[2023-10-08 17:31] LABS: HCT 40.3 % (39.0-53.0); HGB 13.6 gm/dL (13.0-17.5); MCHC 33.8 g/dL (31.0-37.0); MCV 94.7 fL (80.0-100.0); Mean Platelet Volume 8.3; RBC 4.26 m/uL (4.30-5.90); RDW 13.7 % (11.5-15.5)
[2023-10-08 17:40] LABS: African American GFR (CKD) >90 (>60 ml/min/1.73 sqM); Anion Gap 13 mmol/L; Blood Urea Nitrogen 14 mg/dL (9-20); Calcium 9.2 mg/dL (8.4-10.2); Carbon Dioxide 21 mmol/L (22-30); Chloride 103 mmol/L (98-107); Glucose 207 mg/dL (74-99); Non-African American GFR(CKD) >90 (>60 ml/min/1.73 sqM); Potassium 4.1 mmol/L (3.5-5.1); Sodium 137 mmol/L (137-145)
[2023-10-08 17:46] LABS: INR 1.1 (<1.2); Prothrombin Time 11.5 sec (10.0-12.5)
[2023-10-08 18:06] LABS: Partial Thromboplastin Time 21.7 sec (22.0-30.0)
--- NOTE | 2023-10-08 18:35 | CT ---
EXAMINATION TYPE: CT brain cspine wo con, CT thoracic spine wo con CT DLP: 2977.0 mGycm combined with thorax, Automated exposure control for dose reduction was used. DATE OF EXAM: 10/08/2023 6:07 PM COMPARISON: 06/05/2023, 02/09/2023, 06/05/2023. CLINICAL INDICATION:Male, 78 years old with history of pain fall; fall, neck and back pain. TECHNIQUE: Brain: Multiple axial CT images of the brain were obtained without IV contrast. Cspine: Axial CT images from the skull base to the inferior aspect of T2 we obtained without intraven ous contrast. Coronal and sagittal reformatted images were also reviewed. Thoracic spine: Axial imaging of the thoracic spine with sagittal coronal reformats. FINDINGS: Brain: Extra-axial spaces: No abnormal extra-axial fluid collections. Ventricular system: Dilatation in proportion to cerebral atrophy. Cerebral parenchyma: Cerebral atrophy. No acute intraparenchymal hemorrhage or mass effect. The vela -white junction is well differentiated. Scattered hypoattenuating areas are seen within the white mat ter. Cerebellum: Unremarkable. Mass effect: No evidence of midline shift. Intracranial vasculature: Atherosclerotic calcifications of the intracranial vessels. Soft tissues: Normal. Calvarium/osseous structures: No depressed skull fracture. Paranasal sinuses and mastoid air cells: Clear. Visualized orbits: Posttreatment changes to the left globe. Right aphakia. spine: Fracture: None. Osseous structures: Multilevel degenerative disc disease changes with endplate spurring and disc oste ophyte complex's. Scattered Schmorl's nodes disc vacuum phenomenon and bridging syndesmophytes are se en throughout the thoracic spine. Pseudoarthrosis of the spinous processes in the lower spine. Vertebral alignment: Within normal limits. Spinal canal/Neural Foramina: Disc osteophyte complexes at C3-C6. With at least mild spinal canal dimas nosis. L1-L2 moderate spinal canal stenosis secondary disc bulge and facet joint arthropathy. Facet j oint uncovertebral joint arthropathy scattered throughout the cervical spine with varying degrees of neural foraminal stenosis. Neural foraminal stenosis worse at C3-C4 bilaterally with moderate to tom re and T9-T10 and T10-T11 and T11-T12 with mild to moderate left and moderate to severe right T10-T11 Neck soft tissues: Prevertebral soft tissues are within normal limits. Other: The airway is patent. No evidence for focal consolidation, pneumothorax or pleural effusion wi thin the lungs. IMPRESSION: 1. No acute intracranial process. 2. Nonspecific white matter changes, likely secondary to chronic small vessel ischemic disease. 3. No evidence of cervical spine or thoracic fracture. 4. Moderate to severe multilevel degenerative disc disease multilevel neural foraminal stenosis wors e at T10-T11 on the right at C3-C4 bilaterally 5. Findings suggestive of Baastrup's disease. 6. Moderate L1-L2 spinal canal stenosis secondary disc bulge and facet joint arthropathy.
[2023-10-08 18:42] LABS: Platelet Count 89 k/uL (150-450)
[2023-10-08 18:49] VITALS: BP 144/71; PULSE 57; RESP 18
[2023-10-08 19:31] LABS: Neutrophils % (M) 23 %; Nucleated Red Blood Cells 0 /100 WBC (0-0); Total Cells Counted 100
--- NOTE | 2023-10-08 19:45 | XR ---
EXAMINATION TYPE: XR knee limited LT DATE OF EXAM: 10/08/2023 7:17 PM CLINICAL INDICATION:Male, 78 years old with history of pain fall; [facility] COMPARISON: None. TECHNIQUE: XR knee limited LT; examined in Frontal, lateral and oblique projections. FINDINGS: No evidence of any acute osseous pathology, soft tissue swelling, or joint effusion is no waqar. Atherosclerosis of the arterial vasculature. Tricompartmental osteophyte formation involving the femoral condyles, tibial plateau and patella. Mi ld joint space narrowing. IMPRESSION: 1. No acute osseous pathology. 2. Moderate tricompartmental osteoarthritic changes.
--- NOTE | 2023-10-08 19:46 | XR ---
EXAMINATION TYPE: XR Hip LT and AP Pelvis DATE OF EXAM: 10/08/2023 7:17 PM CLINICAL INDICATION:Male, 78 years old with history of pain fall; [facility] COMPARISON: None. TECHNIQUE: XR Hip LT and AP Pelvis; hip was examined in the frontal and lateral projections and a AP pelvis. FINDINGS: No evidence for acute process, joint dislocation or significant soft tissue swelling. Osteo phyte formation of the superior acetabulum of the hips with joint space narrowing. Multilevel degener ation changes of the spine. IMPRESSION: 1. No evidence for acute process. 2. Moderate bilateral hip osteoarthrosis.
--- NOTE | 2023-10-08 19:47 | XR ---
EXAMINATION TYPE: XR chest 1V portable DATE OF EXAM: 10/08/2023 7:18 PM CLINICAL INDICATION:Male, 78 years old with history of fall, pain; [facility] COMPARISON: Chest radiographs from 08/14/2023. TECHNIQUE: XR chest 1V portable Frontal view of the chest. FINDINGS: Lungs/Pleura: There is no evidence of pleural effusion, focal consolidation, or pneumothorax. Pulmonary vascularity: Unremarkable. Heart/mediastinum: Cardiomediastinal silhouette is enlarged and stable. Musculoskeletal: No acute osseous pathology. IMPRESSION: 1. No acute cardiopulmonary disease/process. 2. Cardiomegaly.
[2023-10-08] MEDS ORDERED: HYDROcodone/APAP 5-325MG 1 EACH TAB PO STA (20:03)
== END 2023-10-08 20:45 | disposition home or self-care (01) ==
LOC: EC 16:08
DX: S46.912A Strain of unspecified muscle, fascia and tendon at shoulder and upper arm level, left arm, initial encounter (principal); S00.03XA Contusion of scalp, initial encounter; S80.212A Abrasion, left knee, initial encounter; R00.1 Bradycardia, unspecified; I25.10 Atherosclerotic heart disease of native coronary artery without angina pectoris; E11.9 Type 2 diabetes mellitus without complications; I10 Essential (primary) hypertension; K21.9 Gastro-esophageal reflux disease without esophagitis; M19.90 Unspecified osteoarthritis, unspecified site; Z79.899 Other long term (current) drug therapy; Z79.4 Long term (current) use of insulin; Z79.1 Long term (current) use of non-steroidal anti-inflammatories (NSAID); Z88.0 Allergy status to penicillin; Z88.8 Allergy status to other drugs, medicaments and biological substances; W18.30XA Fall on same level, unspecified, initial encounter; Z23 Encounter for immunization
CPT/HCPCS: 36415; 80048; 85025; 85610; 85730; 73502; 73560; 71045; 72128; 72125; 70450; 90715; 99285; 96374; 96361; 90471; J2270

== ENCOUNTER 2024-02-16 23:29 | Emergency (ER) | payer MEDICARE ==
--- NOTE | 2024-02-16 23:54 | ED ---
Abdominal Pain HPI - General Chief Complaint: Abdominal Pain Stated Complaint: Abd pain Time Seen by Provider: 02/16/24 23:47 Source: patient, EMS, RN notes reviewed Mode of arrival: EMS Limitations: no limitations - History of Present Illness Initial Comments: 78-year-old male presented to the ER via EMS with a chief complaint of left lower quadrant abdominal pain. He states this been going on for the past 3 days. He states it is now radiating to his back. He denies any nausea, vomiting, diarrhea or constipation. Denies any hematochezia or bright red blood per school. He states he has been taking Imodium and prescribed [place] without relief. He denies any fevers. No history of diverticulitis. No urinary complaints. Denies chest pain, shortness of breath, headache or peripheral edema. - Related Data Home Medications Medication Instructions Recorded Confirmed Montelukast Sodium [Singulair] 10 mg PO DAILY 05/25/17 06/05/23 Fluticasone Nasal [place] [Flonase 1 spr EA NOSTRIL DAILY PRN 01/24/21 06/05/23 Nasal [place]] Atorvastatin [Lipitor] 80 mg PO DAILY 03/08/21 06/05/23 SILVER sulfADIAZINE CREAM 1 applic TOPICAL BID PRN 04/18/21 06/05/23 [Silvadene Cream] Omeprazole 40 mg PO DAILY 07/27/21 06/05/23 lisinopriL [Zestril] 20 mg PO DAILY 07/27/21 06/05/23 Brimonidine Tartrate/Timolol 1 drop BOTH EYES BID 09/06/21 06/05/23 [Combigan 0.2%-0.5% Eye Drops] Latanoprost/Pf [Latanoprost 0.005% 1 drop BOTH EYES DIRECTED 09/06/21 06/05/23 Eye Drop] Insulin Aspart Prot/Insuln Asp 15 units SQ HS 09/14/22 06/05/23 [Relion NovoLOG Mix 70-30 Vial] Insulin Aspart Prot/Insuln Asp 25 units SQ DAILY 09/14/22 06/05/23 [Relion NovoLOG Mix 70-30 Vial] Meclizine [Antivert] 25 mg PO TID PRN 09/14/22 06/05/23 ALPRAZolam [Xanax] 0.25 mg PO HS 06/05/23 06/05/23 Cetirizine HCl [Zyrtec] 10 mg PO DAILY PRN 06/05/23 06/05/23 Erythromycin 0.5% Ophth Oint 1 drop LEFT EYE HS 06/05/23 06/05/23 (5gm/Gm) Gabapentin [Neurontin] 300 mg PO BID 06/05/23 06/05/23 HYDROcodone/APAP 5-325MG [[place] 1 tab PO Q6HR 06/05/23 06/05/23 5-325] Ketorolac 0.5% Ophth Soln [Acular 1 drop RIGHT EYE DIRECTED 06/05/23 06/05/23 0.5%] Mupirocin 2% Oint [Bactroban 2% 1 applic TOPICAL BID PRN 06/05/23 06/05/23 Oint] prednisoLONE ACETATE 1% OPHTH 1 drop LEFT EYE BID 06/05/23 06/05/23 [Pred Forte 1%] Previous Rx's Medication Instructions Recorded Isosorbide Mononitrate ER [Imdur] 30 mg PO DAILY #30 tab 04/19/21 Nitroglycerin Sl Tabs [Nitrostat] 0.4 mg SUBLINGUAL Q5M PRN tab 05/15/22 Allergies Allergy/AdvReac Type Severity Reaction Status Date / Time amoxicillin [From Augmentin] Allergy Rash/Hives Verified 02/16/24 23:36 clavulanic acid Allergy Rash/Hives Verified 02/16/24 23:36 [From Augmentin] Review of Systems ROS Statement: Those systems with pertinent positive or pertinent negative responses have been documented in the HPI. ROS Other: All systems not noted in ROS Statement are negative. Past Medical History Past Medical History: Coronary Artery Disease (CAD), Cancer, Diabetes Mellitus, GERD/Reflux, Hypertension, Osteoarthritis (OA) Additional Past Medical History / Comment(s): NIDDM type II, 1999 LEUKEMIA (CLL-remission), sinus problems, seasonal allergies, tinnitis bilaterally, OA hands, R wrist carpal tunnel, past fx with L elbow, R rotator cuff tendon problems, L rotator cuff tear, left knee pain History of Any Multi-Drug Resistant Organisms: None Reported Past Surgical History: Heart Catheterization, Orthopedic Surgery Additional Past Surgical History / Comment(s): LEFT HAND thumb tendon repair. L knee surgery. Past Anesthesia/Blood Transfusion Reactions: No Reported Reaction Past Psychological History: No Psychological Hx Reported Smoking Status: Never smoker Past Alcohol Use History: None Reported Past Drug Use History: None Reported - Past Family History Father Family Medical History: CVA/TIA Additional Family Medical History / Comment(s): Father at the age of 85yrs. Mother Family Medical History: Diabetes Mellitus Additional Family Medical History / Comment(s): Mother at the age of 90yrs. General Exam General appearance: alert, in no apparent distress Head exam: Present: atraumatic, normocephalic, normal inspection Respiratory exam: Present: normal lung sounds bilaterally. Absent: respiratory distress, wheezes, rales, rhonchi, stridor Cardiovascular Exam: Present: regular rate, normal rhythm, normal heart sounds. Absent: systolic murmur, diastolic murmur, rubs, gallop, clicks GI/Abdominal exam: Present: soft, tenderness (Suprapubic and left lower quadrant), normal bowel sounds Back exam: Present: other (No CVA tenderness bilaterally) Neurological exam: Present: alert, oriented X3, CN II-XII intact Psychiatric exam: Present: normal affect, normal mood Skin exam: Present: warm, dry, intact, normal color. Absent: rash Course Vital Signs 02/16/24 02/17/24 02/17/24 23:33 01:00 02:00 Temperature 98.1 F Pulse Rate 53 L 50 L 49 L Respiratory 18 16 20 Rate Blood Pressure 176/70 120/77 157/67 O2 Sat by Pulse 96 97 98 Oximetry 02/17/24 02/17/24 03:00 03:30 Temperature Pulse Rate 50 L 47 L Respiratory 17 17 Rate Blood Pressure 159/66 147/69 O2 Sat by Pulse 97 96 Oximetry Medical Decision Making - Medical Decision Making Was pt. sent in by a medical professional or institution (, PA, BALL ASSEMBLER, urgent care, hospital, or prison...) When possible be specific @ -No Did you speak to anyone other than the patient for history (EMS, parent, family, police, friend...)? What history was obtained from this source @ -No Did you review nursing and triage notes (agree or disagree)? Why? @ -I reviewed and agree with nursing and triage notes Were old charts reviewed (outside hosp., previous admission, EMS record, old EKG, old radiological studies, urgent care reports/EKG's, prison records)? Report findings @ -No old charts were reviewed Differential Diagnosis (chest pain, altered mental status, abdominal pain women, abdominal pain men, vaginal bleeding, weakness, fever, dyspnea, syncope, headache, dizziness, GI bleed, back pain, seizure, CVA, palpatations, mental health, musculoskeletal)? @ -Differential Abdominal Pain Men:Appendicitis, cholecystitis, diverticulosis, ischemic bowel, pancreatitis, hepatitis, UTI, gastroenteritis, AAA, incarcerated hernia, bowel obstruction, constipation, inflammatory bowel, hepatitis, peptic ulcer disease, splenic infarction, perforated viscus, testicular torsion, this is not meant to be an all-inclusive list EKG interpreted by me (3pts min.). @ -As above X-rays interpreted by me (1pt min.). @ -None done CT interpreted by me (1pt min.). @ - CT abdomen pelvis performed significant for cholelithiasis without evidence of obstruction. There is a nonspecific stranding around perinephric spaces. No evidence of bowel obstruction with moderate stool in the colon. U/S interpreted by me (1pt. min.). @ -None done What testing was considered but not performed or refused? (CT, X-rays, U/S, labs)? Why? @ -None What meds were considered but not given or refused? Why? @ -None Did you discuss the management of the patient with other professionals (professionals i.e. , PA, BALL ASSEMBLER, lab, RT, psych nurse, dialysis social worker, hair mixer, teacher, property disposal officer, caser shoe parts)? Give summary @ -No Was smoking cessation discussed for >3mins.? @ -No Was critical care preformed (if so, how long)? @ -No Were there social determinants of health that impacted care today? How? (Homelessness, low income, unemployed, alcoholism, drug addiction, transportation, low edu. Level, literacy, decrease access to med. care, [facility], rehab)? @ -No Was there de-escalation of care discussed even if they declined (Discuss DNR or withdrawal of care, Hospice)? DNR status @ -No What co-morbidities impacted this encounter? (DM, HTN, Smoking, COPD, CAD, Cancer, CVA, ARF, Chemo, Hep., AIDS, mental health diagnosis, sleep apnea, morbid obesity)? @ -None Was patient admitted / discharged? Hospital course, mention meds given and route, prescriptions, significant lab abnormalities, going to OR and other pertinent info. @ -Discharge. 78-year-old male presenting to the ER with chief complaint of left lower quadrant abdominal pain. History and physical exam completed. Vitals stable. Patient in no signs of acute distress and nontoxic-appearing. Normal bowel sounds with tenderness to left lower quadrant. Laboratory studies obtained significant for white blood cell count 14 which is believed to be elevated due to history of leukemia. HGB 12.1 appear to be patients baseline. CMP unremarkable. Urine without signs of infection. CT abdomen pelvis performed significant for cholelithiasis without evidence of obstruction. There is a nonspecific stranding around perinephric spaces. No evidence of bowel obstruction with moderate stool in the colon. Symptomatic treatment in the ER. Upon reevaluation, patient resting comfortably in exam room in no signs acute di stress. Results discussed with patient, all questions answered. Advise follow- up with PCP. Return parameters discussed. Patient discharged stable condition. Patient verbally expressed understanding and agreement with care plan. Case discussed with ED attending, Dr. Kelley Undiagnosed new problem with uncertain prognosis? @ -No Drug Therapy requiring intensive monitoring for toxicity (Heparin, Nitro, Insulin, Cardizem)? @ -No Were any procedures done? @ -No Diagnosis/symptom? @ -Abdominal pain Acute, or Chronic, or Acute on Chronic? @ -Acute Uncomplicated (without systemic symptoms) or Complicated (systemic symptoms)? @ -Uncomplicated Side effects of treatment? @ -No Exacerbation, Progression, or Severe Exacerbation? @ -No Poses a threat to life or bodily function? How? (Chest pain, [place], [place], pneumonia, PE, COPD, DKA, ARF, appy, cholecystitis, CVA, Diverticulitis, Homicidal, Suicidal, threat to staff... and all critical care pts) @ -No - Lab Data Result diagrams: 02/17/24 00:27 02/17/24 00:27 Lab Results 02/17/24 02/17/24 02/17/24 Range/Units 00:27 00:27 00:27 WBC 14.4 H (3.8-10.6) k/uL RBC 3.92 L (4.30-5.90) m/uL Hgb 12.1 L (13.0-17.5) gm/dL Hct 36.2 L (39.0-53.0) % MCV 92.2 (80.0-100.0) fL MCH 30.9 (25.0-35.0) pg MCHC 33.5 (31.0-37.0) g/dL RDW 13.7 (11.5-15.5) % Plt Count 100 L (150-450) k/uL MPV 8.9 Neutrophils % Not Reportable Neutrophils % (Manual) 24 % Lymphocytes % Not Reportable Lymphocytes % (Manual) 72 % Monocytes % Not Reportable Monocytes % (Manual) 1 % Eosinophils % Not Reportable Eosinophils % (Manual) 3 % Basophils % Not Reportable Neutrophils # Not Reportable Neutrophils # (Manual) 3.46 (1.3-7.7) k/uL Lymphocytes # Not Reportable Lymphocytes # (Manual) 10.37 H (1.0-4.8) k/uL Monocytes # Not Reportable Monocytes # (Manual) 0.14 (0-1.0) k/uL Eosinophils # Not Reportable Eosinophils # (Manual) 0.43 (0-0.7) k/uL Basophils # Not Reportable Nucleated RBCs 0 (0-0) /100 WBC Manual Slide Review Performed Anisocytosis (manual) Present Sodium 137 (137-145) mmol/L Potassium 4.1 (3.5-5.1) mmol/L Chloride 107 (98-107) mmol/L Carbon Dioxide 24 (22-30) mmol/L Anion Gap 6 mmol/L BUN 18 (9-20) mg/dL Creatinine 0.72 (0.66-1.25) mg/dL Est GFR (CKD-EPI)AfAm >90 (>60 ml/min/1.73 sqM) Est GFR (CKD-EPI)NonAf >90 (>60 ml/min/1.73 sqM) Glucose 121 H (74-99) mg/dL Plasma Lactic Acid [place] 0.8 (0.7-2.0) mmol/L Calcium 8.7 (8.4-10.2) mg/dL Total Bilirubin 0.8 (0.2-1.3) mg/dL AST 25 (17-59) U/L ALT 17 (4-49) U/L Alkaline Phosphatase 89 (38-126) U/L Total Protein 5.7 L (6.3-8.2) g/dL Albumin 3.6 (3.5-5.0) g/dL Amylase 42 (30-110) U/L Lipase 92 (23-300) U/L Urine Color Urine Appearance (Clear) Urine pH (5.0-8.0) Ur Specific [place] (1.001-1.035) Urine Protein (Negative) Urine Glucose (UA) (Negative) Urine Ketones (Negative) Urine Blood (Negative) Urine Nitrite (Negative) Urine Bilirubin (Negative) Urine Urobilinogen (<2.0) mg/dL Ur Leukocyte Esterase (Negative) 02/17/24 Range/Units 03:03 WBC (3.8-10.6) k/uL RBC (4.30-5.90) m/uL Hgb (13.0-17.5) gm/dL Hct (39.0-53.0) % MCV (80.0-100.0) fL MCH (25.0-35.0) pg MCHC (31.0-37.0) g/dL RDW (11.5-15.5) % Plt Count (150-450) k/uL MPV Neutrophils % Neutrophils % (Manual) % Lymphocytes % Lymphocytes % (Manual) % Monocytes % Monocytes % (Manual) % Eosinophils % Eosinophils % (Manual) % Basophils % Neutrophils # Neutrophils # (Manual) (1.3-7.7) k/uL Lymphocytes # Lymphocytes # (Manual) (1.0-4.8) k/uL Monocytes # Monocytes # (Manual) (0-1.0) k/uL Eosinophils # Eosinophils # (Manual) (0-0.7) k/uL Basophils # Nucleated RBCs (0-0) /100 WBC Manual Slide Review Anisocytosis (manual) Sodium (137-145) mmol/L Potassium (3.5-5.1) mmol/L Chloride (98-107) mmol/L Carbon Dioxide (22-30) mmol/L Anion Gap mmol/L BUN (9-20) mg/dL Creatinine (0.66-1.25) mg/dL Est GFR (CKD-EPI)AfAm (>60 ml/min/1.73 sqM) Est GFR (CKD-EPI)NonAf (>60 ml/min/1.73 sqM) Glucose (74-99) mg/dL Plasma Lactic Acid [place] (0.7-2.0) mmol/L Calcium (8.4-10.2) mg/dL Total Bilirubin (0.2-1.3) mg/dL AST (17-59) U/L ALT (4-49) U/L Alkaline Phosphatase (38-126) U/L Total Protein (6.3-8.2) g/dL Albumin (3.5-5.0) g/dL Amylase (30-110) U/L Lipase (23-300) U/L Urine Color Yellow Urine Appearance Clear (Clear) Urine pH 5.5 (5.0-8.0) Ur Specific [place] 1.050 H (1.001-1.035) Urine Protein Trace H (Negative) Urine Glucose (UA) Trace H (Negative) Urine Ketones Negative (Negative) Urine Blood Negative (Negative) Urine Nitrite Negative (Negative) Urine Bilirubin Negative (Negative) Urine Urobilinogen 2.0 (<2.0) mg/dL Ur Leukocyte Esterase Negative (Negative) - EKG Data -: EKG Interpreted by [place] EKG Comments: EKG taken at 23: 36 showing sinus bradycardia with no acute ST segment or T wave abnormalities. Ventricular rate 51, GA interval 192, QRS duration 100, QT/QTc 427/403. - Radiology Data Radiology results: report reviewed, image reviewed Disposition Clinical Impression: Abdominal pain Disposition: HOME SELF-CARE Condition: Stable Instructions (If sedation given, give patient instructions): Abdominal Pain (ED) Additional Instructions: Follow-up with PCP. Return to ER for any new or worsening symptoms. Is patient prescribed a controlled substance at d/c from ED?: No Referrals: Edgard Schneider DO [Primary Care Provider] - 1-2 days Time of Disposition: 03:47
[2024-02-16 23:59] VITALS: TEMP 98.1
[2024-02-17] MEDS: ACETAMINOPHEN TAB 325 MG TAB PO STA (00:27)
[2024-02-17 01:16] LABS: ALT 17 U/L (4-49); AST 25 U/L (17-59); African American GFR (CKD) >90 (>60 ml/min/1.73 sqM); Albumin 3.6 g/dL (3.5-5.0); Alkaline Phosphatase 89 U/L (38-126); Amylase 42 U/L (30-110); Anion Gap 6 mmol/L; Blood Urea Nitrogen 18 mg/dL (9-20); Calcium 8.7 mg/dL (8.4-10.2); Carbon Dioxide 24 mmol/L (22-30); Chloride 107 mmol/L (98-107); Glucose 121 mg/dL (74-99); Lipase 92 U/L (23-300); Non-African American GFR(CKD) >90 (>60 ml/min/1.73 sqM); Potassium 4.1 mmol/L (3.5-5.1); Sodium 137 mmol/L (137-145); Total Bilirubin 0.8 mg/dL (0.2-1.3); Total Protein 5.7 g/dL (6.3-8.2)
[2024-02-17 01:45] LABS: HCT 36.2 % (39.0-53.0); HGB 12.1 gm/dL (13.0-17.5); MCH 30.9 pg (25.0-35.0); MCHC 33.5 g/dL (31.0-37.0); MCV 92.2 fL (80.0-100.0); Mean Platelet Volume 8.9; Platelet Count 100 k/uL (150-450); RBC 3.92 m/uL (4.30-5.90); RDW 13.7 % (11.5-15.5); WBC 14.4 k/uL (3.8-10.6)
--- NOTE | 2024-02-17 02:25 | CT ---
EXAM: CT Abdomen and Pelvis With Intravenous Contrast CLINICAL HISTORY: ITS.REASON CT Reason: abdominal pain TECHNIQUE: Axial computed tomography images of the abdomen and pelvis with intravenous contrast. CTDI is 26.8 mGy and DLP is 1418 mGy-cm. This CT exam was performed using one or more of the following dose reduction techniques: automated exposure control, adjustment of the mA and/or kV according to patient size, and/or use of iterative reconstruction technique. COMPARISON: 06/05/2023. FINDINGS: Lung bases: COPD. Scarring and subsegmental atelectasis noted at the lung bases. Heart: There is cardiomegaly. ABDOMEN: Liver: Fatty liver. Gallbladder and bile ducts: There is cholelithiasis. No ductal dilation. Pancreas: See below. Spleen: Spleen enhances uniformly. Adrenals: The adrenal glands, the head, body, tail of the pancreas are unremarkable. Kidneys and ureters: Nonspecific stranding about the perinephric spaces. Stomach and bowel: Moderate quantity of ingested material in the stomach. Moderate quantity of stool throughout the colon. No mucosal thickening. No bowel obstruction. PELVIS: Appendix: No findings to suggest acute appendicitis. Bladder: Unremarkable. No mass. Reproductive: Unremarkable as visualized. ABDOMEN and PELVIS: Intraperitoneal space: Unremarkable. No free air. No significant fluid collection. Bones/joints: Levoscoliosis of the lumbar spine. No acute fracture. No dislocation. No spondylolysis. Soft tissues: Ischiorectal fat is clean. Vasculature: Portal vein is patent. Flow is noted within the celiac, SMA, the renal arteries, and TUCKER. No abdominal aortic aneurysm. Lymph nodes: Unremarkable. No retroperitoneal adenopathy. Other findings: ASCVD. Multilevel vacuum disks are noted. IMPRESSION: 1. Cardiomegaly. 2. Fatty liver. 3. Cholelithiasis. 4. Nonspecific stranding about the perinephric spaces. 5. No bowel obstruction. 6. Diverticulosis without
[2024-02-17] MEDS: MORPHINE SULFATE 2 MG/ML SYRINGE IVP ONE (03:07)
[2024-02-17 03:23] LABS: Appearance,Urine Clear (Clear); Bilirubin,Urine Negative (Negative); Blood,Urine Negative (Negative); Color,Urine Yellow; Glucose,Urine (UA) Trace (Negative); Ketones,Urine Negative (Negative); Leukocyte Esterase,Urine Negative (Negative); Nitrite,Urine Negative (Negative); PH, Urine 5.5 (5.0-8.0); Protein,Urine Trace (Negative)
[2024-02-17 04:06] VITALS: BP 147/69; PULSE 47; RESP 17
[2024-02-17 06:17] LABS: Eosinophils # (M) 0.43 k/uL (0-0.7); Lymphocytes # (M) 10.37 k/uL (1.0-4.8); Monocytes # (M) 0.14 k/uL (0-1.0); Neutrophils # (M) 3.46 k/uL (1.3-7.7); Neutrophils % (M) 24 %; Nucleated Red Blood Cells 0 /100 WBC (0-0); Total Cells Counted 100
[2024-02-17 06:20] LABS: Anisocytosis (M) Present
== END 2024-02-17 04:17 | disposition home or self-care (01) ==
LOC: EC 23:29
DX: K80.20 Calculus of gallbladder without cholecystitis without obstruction (principal); K76.0 Fatty (change of) liver, not elsewhere classified; R00.1 Bradycardia, unspecified; Z88.0 Allergy status to penicillin; Z88.8 Allergy status to other drugs, medicaments and biological substances
CPT/HCPCS: 36415; 93005; 80053; 82150; 83605; 83690; 85025; 81003; 74177; 99285; 96374; J2270; Q9967

== ENCOUNTER 2024-11-06 15:14 | Emergency (ER) | payer MEDICARE ==
[2024-11-06 15:23] VITALS: TEMP 98
--- NOTE | 2024-11-06 16:18 | ED ---
General Adult HPI - General Chief complaint: Fall Stated complaint: weakness Time Seen by Provider: 11/06/24 15:35 Source: patient, EMS Mode of arrival: EMS Limitations: no limitations - History of Present Illness Initial comments: Patient is a 79-year-old gentleman history of CAD, diabetes presenting today for mechanical fall. Patient states that he was stepping out of his back door when his foot got caught in the door jam causing him to slip and fall. Landed on his back. He does not think he hit his head however he now has a headache so wonders if he may have. Does not believe he lost consciousness so is unsure. Currently endorses left thigh pain. Was unable to get up and upon EMS arrival he was helped to stand but states that he is very shaky upon standing. EMS reports the patient is had multiple falls recently however patient states that he only had 1 fall about 2 weeks ago which was caused by slip on ice. Patient endorses intermittent dizziness that he states is been ongoing ever since he had retinal surgery about a year ago. Currently endorses mild dizziness, worsens with standing. He denies any fevers, no chest pain, shortness of breath, abdominal pain, vomiting, diarrhea, back pain, neck pain, numbness or weakness in his extremities, slurred speech, saddle anesthesia or bladder bowel incontinence. Patient takes [place] at home for pain typically and currently endorses left thigh/left hip pain. - Related Data Home Medications Medication Instructions Recorded Confirmed Montelukast Sodium [Singulair] 10 mg PO DAILY 05/25/17 11/06/24 Fluticasone Nasal [place] [Flonase 2 spr EA NOSTRIL DAILY 01/24/21 11/06/24 Nasal [place]] Atorvastatin [Lipitor] 80 mg PO DAILY 03/08/21 11/06/24 Omeprazole 40 mg PO DAILY 07/27/21 11/06/24 Insulin Aspart Prot/Insuln Asp 15 units SQ HS 09/14/22 11/06/24 [Relion NovoLOG Mix 70-30 Vial] Insulin Aspart Prot/Insuln Asp 25 units SQ DAILY 09/14/22 11/06/24 [Relion NovoLOG Mix 70-30 Vial] Meclizine [Antivert] 25 mg PO TID 09/14/22 11/06/24 ALPRAZolam [Xanax] 0.25 mg PO DAILY PRN 06/05/23 11/06/24 HYDROcodone/APAP 5-325MG [[place] 1 tab PO Q6HR 06/05/23 11/06/24 5-325] Baclofen 10 - 20 mg PO DAILY 11/06/24 11/06/24 Sucralfate [Carafate] 1 gm PO ACHS 11/06/24 11/06/24 cefuroxime axetiL [Ceftin] 500 mg PO BID 11/06/24 11/06/24 Allergies Allergy/AdvReac Type Severity Reaction Status Date / Time amoxicillin [From Augmentin] Allergy Rash/Hives Verified 11/06/24 18:29 clavulanic acid Allergy Rash/Hives Verified 11/06/24 18:29 [From Augmentin] Review of Systems ROS Statement: Those systems with pertinent positive or pertinent negative responses have been documented in the HPI. ROS Other: All systems not noted in ROS Statement are negative. Past Medical History Past Medical History: Coronary Artery Disease (CAD), Cancer, Diabetes Mellitus, GERD/Reflux, Hypertension, Osteoarthritis (OA) Additional Past Medical History / Comment(s): NIDDM type II, 1999 LEUKEMIA (CLL- remission), sinus problems, seasonal allergies, tinnitis bilaterally, OA hands, R wrist carpal tunnel, past fx with L elbow, R rotator cuff tendon problems, L rotator cuff tear, left knee pain History of Any Multi-Drug Resistant Organisms: None Reported Past Surgical History: Heart Catheterization, Orthopedic Surgery Additional Past Surgical History / Comment(s): LEFT HAND thumb tendon repair. L knee surgery. Past Anesthesia/Blood Transfusion Reactions: No Reported Reaction Past Psychological History: No Psychological Hx Reported Smoking Status: Never smoker Past Alcohol Use History: None Reported Past Drug Use History: None Reported - Past Family History Father Family Medical History: CVA/TIA Additional Family Medical History / Comment(s): Father at the age of 85yrs. Mother Family Medical History: Diabetes Mellitus Additional Family Medical History / Comment(s): Mother at the age of 90yrs. General Exam - General Exam Comments Initial Comments: PE: CONSTITUTIONAL: [no apparent distress, well appearing] SKIN: [warm, dry, no jaundice, hives or petechiae] EYES:[ pupils are equally round, extraocular movements intact without nystagmus, clear conjunctiva, non-icteric sclera] HENT: [normocephalic, atraumatic, moist mucus membranes, oropharynx clear without exudates] NECK: , [Full range of motion, normal appearance, no midline spinal TTP] PULMONARY: [clear to auscultation without wheezes, rhonchi, or rales, normal excursion, no accessory muscle use and no stridor] CARDIOVASCULAR:[ regular rate, rhythm, normal S1 and S2. No appreciated murmurs, rubs or gallops. Strong radial pulses with intact distal perfusion. No lower extremity edema] GASTROINTESTINAL: [soft, active bowel sounds throughout, non-tender, non- distended, no palpable masses, no rebound or guarding. No hepatosplenomegaly] GENITOURINARY: MUSCULOSKELETAL: [Extremities have no gross deformity, no edema, redness, or swelling. TTP left thigh without gross deformity, able to range through full ROM, no midline spinal TTP, exam limited as patient examined in hallway] NEUROLOGIC: [_a/o x 3, GCS 15, normal mentation and speech. Moves all extremities x 4 without motor or sensory deficit] PSYCHIATRIC:[ _normal mood and affect, thought process is clear and linear] Limitations: no limitations Course Vital Signs 11/06/24 11/06/24 11/06/24 15:18 17:03 19:51 Temperature 98.0 F 98.0 F Pulse Rate 64 52 L 72 Respiratory 17 17 18 Rate Blood Pressure 161/82 148/82 190/90 O2 Sat by Pulse 100 98 96 Oximetry EKG Findings - EKG Comments: EKG Findings:: Sinus bradycardia rate 57 bpm DE interval 176 ms QRS duration 92 ms QT/QTc 4 9/4 3 ms, left axis deviation, LVH noted, no ST elevations or depressions, no STEMICompared to EKG performed on 02/16/2024, T wave in V1 appears taller than EKG noted in prior EKG showed but appears more prominent than prior EKG, otherwise no new ST elevations or depressions, transfer text Medical Decision Making - Medical Decision Making Was pt. sent in by a medical professional or institution (, PA, RUBBER CUTTING MACHINE TENDER, urgent care, hospital, or half-way...) When possible be specific @ -No Did you speak to anyone other than the patient for history (EMS, parent, family, police, friend...)? What history was obtained from this source @ -No Did you review nursing and triage notes (agree or disagree)? Why? @ -I reviewed nursing and triage notes Differential Diagnosis (chest pain, altered mental status, abdominal pain women, abdominal pain men, vaginal bleeding, weakness, fever, dyspnea, syncope, headache, dizziness, GI bleed, back pain, seizure, CVA, palpatations, mental health, musculoskeletal)? Differential diagnosis remains broad however top considerations include contusion, fracture, sprain; In regards to pt's intermittent dizziness, top considerations include BPPV, meniere's disease, vertebrobasilar insufficiency, cerebellar stroke, ACS, orthostatc hypotension; this is not an all inclusive list, of note, pt has negative HINTS exam and no cerebellar signs on neuro exam (negative finger to nose, heel to mckinnon) and dizziness appears positional, therefor I do not feel CTA indicated at this point EKG interpreted by me (3pts min.). @ -As above X-rays interpreted by me (1pt min.). @ -Tiny possible infiltrate left midlung field, otherwise no gross consolidations,fractures or cardiomegaly On review XR femur, I see no evidence of fracture or dislocation CT interpreted by me (1pt min.). Reviewed CT brain CT C-spine, I see no evidence of fracture, hemorrhage or mass effect on CT brain, I see no evidence of malalignment or fracture on CT C-spine I do see chronic changes on CT C-spine U/S interpreted by me (1pt. min.). @ -None done What testing was considered but not performed or refused? (CT, X-rays, U/S, labs)? Why? @ -None What meds were considered but not given or refused? Why? @ -None Did you discuss the management of the patient with other professionals (professionals i.e. , PA, RUBBER CUTTING MACHINE TENDER, lab, RT, psych nurse, social media marketer, copy machine operator, teacher, parking officer, case planner)? Give summary @ -No Was smoking cessation discussed for >3mins.? @ -No Was critical care preformed (if so, how long)? @ -No Were there social determinants of health that impacted care today? How? (Homelessness, low income, unemployed, alcoholism, drug addiction, transportation, low edu. Level, literacy, decrease access to med. care, detention, rehab)? @ -No Was there de-escalation of care discussed even if they declined (Discuss DNR or withdrawal of care, Hospice)? @ -No What co-morbidities impacted this encounter? (DM, HTN, Smoking, COPD, CAD, Cancer, CVA, ARF, Chemo, Hep., AIDS, mental health diagnosis, sleep apnea, morbid obesity)? HTN Was patient admitted / discharged? Hospital course, mention meds given and rou te, prescriptions, significant lab abnormalities, going to OR and other pertinent info. Discharged- patient seen and assessed in hallway bed limiting exam. He is a pleasant 79-year-old gentleman presenting today for mechanical slip and fall, with resultant left thigh pain On my assessment patient well-appearing resting comfortably no acute distress. Head is atraumatic, no midline spinal tenderness to palpation, tenderness with patient of left left thigh, otherwise overall reassuring exam. Discussed with patient plan for CT brain, C-spine given age and unsure if head injury; chest x-ray, x-ray of the left femur, basic labs, EKG and home [place] for pain control. Patient agreeable plan of care. Labs and imaging reviewed. Grossly within normal limits. Abnormal values not concerning for acute pathology related to presenting complaint. I I updated patient to findings. Including potential infiltrate versus atelectasis on chest x-ray, he denies symptoms of pneumonia at this point, I suspect x-ray findings secondary to atelectasis. Patient was hypertensive upon sitting with his orthostatic vital signs, did drop upon standing however patient states that his symptoms have since improved and he feels ready to go home. Per RN he was able to ambulate safely. He states he is going to take his home lisinopril upon returning home this evening and take an extra dose tomorrow morning. His labs do not show signs of endorgan damage concerning for hypertensive emergency. He states he has been in increased amount of stress recently as well due to the recent of his son and his dog. Patient feels comfortable with discharge will be discharged this time. In my medical judgment there is currently no evidence of an immediate life- threatening or surgical condition. Discharge is therefore indicated at this time. Discharge treatment instructions, follow up instructions, and appropriate emergency department return precautions were discussed with the patient and/or medical decision maker. Patient and/or medical decision maker expressed understanding of and agreed with the treatment plan, follow up instructions, and emergency department return precaution. All patient's and/or medical decision maker's questions were answered. Undiagnosed new problem with uncertain prognosis? @ -No. Drug Therapy requiring intensive monitoring for toxicity (Heparin, Nitro, Insulin, Cardizem)? @ -No Were any procedures done? @ -No Diagnosis/symptom? Mechanical trip and fall Acute, or Chronic, or Acute on Chronic? @Acute Uncomplicated (without systemic symptoms) or Complicated (systemic symptoms)? Uncomplicated Side effects of treatment? @ -No Exacerbation, Progression, or Severe Exacerbation? @ -No Poses a threat to life or bodily function? How? (Chest pain, [place], HI, pneumonia, PE, COPD, DKA, ARF, appy, cholecystitis, CVA, Diverticulitis, Homicidal, Suicidal, threat to staff... and all critical care pts) @ -No - Lab Data Result diagrams: 11/06/24 17:00 11/06/24 17:00 Lab Results 11/06/24 11/06/24 11/06/24 Range/Units 17:00 17:00 17:00 WBC 13.2 H (3.8-10.6) k/uL RBC 3.99 L (4.30-5.90) m/uL Hgb 12.8 L (13.0-17.5) gm/dL Hct 36.6 L (39.0-53.0) % MCV 91.8 (80.0-100.0) fL MCH 32.0 (25.0-35.0) pg MCHC 34.8 (31.0-37.0) g/dL RDW 14.0 (11.5-15.5) % Plt Count 128 L (150-450) k/uL MPV 7.8 Neutrophils % (Manual) 40 % Lymphocytes % (Manual) 59 % Eosinophils % (Manual) 1 % Neutrophils # (Manual) 5.28 (1.3-7.7) k/uL Lymphocytes # (Manual) 7.79 H (1.0-4.8) k/uL Eosinophils # (Manual) 0.13 (0-0.7) k/uL Nucleated RBCs 0 (0-0) /100 WBC Manual Slide Review Performed RBC Morphology Normal PT 11.6 (10.0-12.5) sec INR 1.1 (<1.2) APTT 22.4 (22.0-30.0) sec Sodium 135 L (137-145) mmol/L Potassium 4.2 (3.5-5.1) mmol/L Chloride 99 (98-107) mmol/L Carbon Dioxide 26 (22-30) mmol/L Anion Gap 10 mmol/L BUN 17 (9-20) mg/dL Creatinine 0.91 (0.66-1.25) mg/dL Est GFR (CKD-EPI)AfAm >90 (>60 ml/min/1.73 sqM) Est GFR (CKD-EPI)NonAf 81 (>60 ml/min/1.73 sqM) Glucose 189 H (74-99) mg/dL Calcium 9.3 (8.4-10.2) mg/dL Total Bilirubin 1.0 (0.2-1.3) mg/dL AST 22 (17-59) U/L ALT 18 (4-49) U/L Alkaline Phosphatase 122 (38-126) U/L Troponin I (0.000-0.034) ng/mL Total Protein 6.4 (6.3-8.2) g/dL Albumin 4.2 (3.5-5.0) g/dL 11/06/24 Range/Units 17:00 WBC (3.8-10.6) k/uL RBC (4.30-5.90) m/uL Hgb (13.0-17.5) gm/dL Hct (39.0-53.0) % MCV (80.0-100.0) fL MCH (25.0-35.0) pg MCHC (31.0-37.0) g/dL RDW (11.5-15.5) % Plt Count (150-450) k/uL MPV Neutrophils % (Manual) % Lymphocytes % (Manual) % Eosinophils % (Manual) % Neutrophils # (Manual) (1.3-7.7) k/uL Lymphocytes # (Manual) (1.0-4.8) k/uL Eosinophils # (Manual) (0-0.7) k/uL Nucleated RBCs (0-0) /100 WBC Manual Slide Review RBC Morphology PT (10.0-12.5) sec INR (<1.2) APTT (22.0-30.0) sec Sodium (137-145) mmol/L Potassium (3.5-5.1) mmol/L Chloride (98-107) mmol/L Carbon Dioxide (22-30) mmol/L Anion Gap mmol/L BUN (9-20) mg/dL Creatinine (0.66-1.25) mg/dL Est GFR (CKD-EPI)AfAm (>60 ml/min/1.73 sqM) Est GFR (CKD-EPI)NonAf (>60 ml/min/1.73 sqM) Glucose (74-99) mg/dL Calcium (8.4-10.2) mg/dL Total Bilirubin (0.2-1.3) mg/dL AST (17-59) U/L ALT (4-49) U/L Alkaline Phosphatase (38-126) U/L Troponin I <0.012 (0.000-0.034) ng/mL Total Protein (6.3-8.2) g/dL Albumin (3.5-5.0) g/dL Disposition Clinical Impression: Fall, Hypertension Disposition: HOME SELF-CARE Instructions (If sedation given, give patient instructions): Fall Prevention (ED) Additional Instructions: Every disease is a spectrum and a small chance still exists that a serious condition could develop, for this reason, please monitor yourself closely for new, changing or worsening symptoms, changes in vision, numbness, weakness slurred speech or other strokelike symptoms, chest pain, shortness of breath swelling in your legs, fever, inability to tolerate/keep down fluids or your medications, inability to follow up with outpatient providers as instructed and should you experience these symptoms or should you have any further concerns for your wellbeing please return to the ED or call 911 immediately. PLEASE call your primary care physician as soon as possible to arrange / discuss plan for followup appointment. Appointment in the next 1-3 days is strongly encouraged if possible. PLEASE let us know here before you leave if there is anything further we can do to be of any assistance. Take care and feel Better! Is patient prescribed a controlled substance at d/c from ED?: No Referrals: dEgard Schneider DO [Primary Care Provider] - 1-2 days
[2024-11-06] MEDS: SODIUM CHLORIDE 0.9% 500 ML 500 ML IV ONE (16:56)
[2024-11-06] MEDS: HYDROcodone/APAP 5-325MG 1 EACH TAB PO STA (16:57)
--- NOTE | 2024-11-06 17:03 | CT ---
EXAMINATION TYPE: CT brain stoneine wo con DATE OF EXAM: 11/06/2024 4:42 PM COMPARISON: None. CLINICAL INDICATION: Male, 79 years old with history of Trauma, fall, pain TECHNIQUE: CT of the brain is performed utilizing 3 mm thick sections through the posterior fossa and 3 mm thick sections through the remaining calvarium. Study is performed within 24 hours of arrival to the hospital. Contrast used: mL of , (none if empty) CT DLP: 1354.6 mGycm, Automated exposure control for dose reduction was used. FINDINGS: No abnormal hyperdensity is present to suggest an acute intracranial hemorrhage. No mass lesion is evident. No acute infarcts are evident. There is some periventricular white matter hypodensity, likely on the basis of chronic white matter ischemic changes Ventricles and sulci are appropriate for the patient age. Paranasal sinuses and mastoid air cells within the [id number] are clear. IMPRESSIONS: 1. No acute intracranial process. Follow-up MRI can be performed as clinically indicated. CT cervical spine. COMPARISON: None TECHNIQUE: CT of the cervical spine is performed in the axial plane at 2 mm thick sections. Reconstr ucted images in the coronal, and sagittal plane are reviewed on the computer. FINDINGS: No acute fractures are evident. Vertebral body alignment is normal. Loss of disc height is present notably at C3-4 and C5-6 Vertebral body heights are preserved. Endplate spurring is present from the inferior endplate of C5. AP spinal canal stenosis is not presen t. Severe foraminal stenosis from uncovertebral hypertrophy and some facet hypertrophy is present at the C3-4 level. Right foraminal narrowing is present C4-5 bilateral foraminal narrowing is present C5-6 IMPRESSION: 1. Degenerative disc changes and foraminal stenosis as discussed above. 2. No acute osseous abnormality radiographically apparent [facility], Workstation: [facility], 11/06/2024 5:00 PM
--- NOTE | 2024-11-06 17:08 | XR ---
EXAMINATION TYPE: XR femur LT DATE OF EXAM: 11/06/2024 4:48 PM COMPARISON: None. CLINICAL INDICATION: Male, 79 years old with history of fall, left thigh pain, pain TECHNIQUE: 2 view(s) obtained. FINDINGS: Left femoral head articulates with the acetabulum. Joint space is mildly narrowed. No acute fractures or dislocations are evident. Mild degenerative joint changes are at the left knee. Vascular calcific ation is present. Follow up exams can be performed as clinically indicated. IMPRESSION: 1. Mild degenerative joint changes. 2. No acute osseous abnormality radiographically apparent. [facility], Workstation: [facility], 11/06/2024 5:06 PM
--- NOTE | 2024-11-06 17:09 | XR ---
EXAMINATION TYPE: XR chest 2V DATE OF EXAM: 11/06/2024 4:48 PM COMPARISON: None. CLINICAL INDICATION: Male, 79 years old with history of fall, dizziness, TECHNIQUE: XR chest 2V view(s) obtained. FINDINGS: The heart size is normal. The pulmonary vasculature is normal. Mild infiltrates through the left peripheral lung. Correlate for atelectasis or pneumonia.. IMPRESSION: 1. Mild peripheral mid lung infiltrate. Correlate for atelectasis or pneumonia [facility], Workstation: [facility], 11/06/2024 5:07 PM
[2024-11-06 17:33] LABS: ALT 18 U/L (4-49); AST 22 U/L (17-59); African American GFR (CKD) >90 (>60 ml/min/1.73 sqM); Albumin 4.2 g/dL (3.5-5.0); Alkaline Phosphatase 122 U/L (38-126); Anion Gap 10 mmol/L; Blood Urea Nitrogen 17 mg/dL (9-20); Calcium 9.3 mg/dL (8.4-10.2); Carbon Dioxide 26 mmol/L (22-30); Chloride 99 mmol/L (98-107); Glucose 189 mg/dL (74-99); HCT 36.6 % (39.0-53.0); HGB 12.8 gm/dL (13.0-17.5); MCHC 34.8 g/dL (31.0-37.0); MCV 91.8 fL (80.0-100.0); Mean Platelet Volume 7.8; Non-African American GFR(CKD) 81 (>60 ml/min/1.73 sqM); Platelet Count 128 k/uL (150-450); Potassium 4.2 mmol/L (3.5-5.1); RBC 3.99 m/uL (4.30-5.90); Sodium 135 mmol/L (137-145); Total Protein 6.4 g/dL (6.3-8.2); WBC 13.2 k/uL (3.8-10.6)
[2024-11-06 18:03] LABS: Partial Thromboplastin Time 22.4 sec (22.0-30.0)
[2024-11-06 18:27] LABS: INR 1.1 (<1.2); Prothrombin Time 11.6 sec (10.0-12.5)
[2024-11-06 19:05] LABS: Eosinophils # (M) 0.13 k/uL (0-0.7); Lymphocytes # (M) 7.79 k/uL (1.0-4.8); Neutrophils # (M) 5.28 k/uL (1.3-7.7); Neutrophils % (M) 40 %; Nucleated Red Blood Cells 0 /100 WBC (0-0); RBC Morphology Normal; Total Cells Counted 100
[2024-11-06 19:51] VITALS: BP 190/90; PULSE 72; RESP 18
== END 2024-11-06 19:56 | disposition home or self-care (01) ==
LOC: EC 15:14
DX: M79.652 Pain in left thigh (principal); I10 Essential (primary) hypertension; Z88.0 Allergy status to penicillin; Z88.1 Allergy status to other antibiotic agents; W00.0XXA Fall on same level due to ice and snow, initial encounter
CPT/HCPCS: 36415; 70450; 71046; 72125; 80053; 84484; 85025; 85610; 85730; 93005; 96360; 99285

== ENCOUNTER 2024-11-20 18:27 | Inpatient (IN) | payer MEDICARE ==
[2024-11-20] MEDS: SODIUM CHLORIDE 0.9% 500 ML 500 ML IV ONE (18:55)
[2024-11-20 19:04] LABS: Appearance,Urine Clear (Clear); Bilirubin,Urine Negative (Negative); Blood,Urine Small (Negative); Color,Urine Colorless; Glucose,Urine (UA) Trace (Negative); Ketones,Urine Negative (Negative); Leukocyte Esterase,Urine Negative (Negative); Nitrite,Urine Negative (Negative); Protein,Urine 1+ (Negative); RBC,Urine 6 /hpf (0-5); Specific Gravity,Urine 1.013 (1.001-1.035); Urobilinogen,Urine <2.0 mg/dL (<2.0); WBC,Urine 1 /hpf (0-5)
[2024-11-20 19:09] LABS: HCT 32.9 % (39.0-53.0); HGB 11.7 gm/dL (13.0-17.5); MCH 31.7 pg (25.0-35.0); MCHC 35.5 g/dL (31.0-37.0); MCV 89.2 fL (80.0-100.0); Mean Platelet Volume 8.2; Platelet Count 137 k/uL (150-450); RBC 3.69 m/uL (4.30-5.90); RDW 14.4 % (11.5-15.5); WBC 13.2 k/uL (3.8-10.6)
[2024-11-20 19:13] LABS: INR 1.1 (<1.2); Partial Thromboplastin Time 22.4 sec (22.0-30.0); Prothrombin Time 12.1 sec (10.0-12.5)
[2024-11-20 19:15] LABS: Amphetamine Screen,Urine Not Detected (NotDetected); Barbiturate Screen,Urine Not Detected (NotDetected); Benzodiazepines Screen,Urine Not Detected (NotDetected); Cocaine Screen,Urine Not Detected (NotDetected); Methadone Screen, Urine Not Detected (NotDetected); Opiate Screen,Urine Detected (NotDetected); Oxycodone Screen, Urine Not Detected (NotDetected); Phencyclidine Screen,Urine Not Detected (NotDetected); Tricyclic Antidepressant,Urine Not Detected (NotDetected); Urn Cannabinoid Scrn Not Detected (NotDetected)
[2024-11-20 19:16] LABS: ALT 21 U/L (4-49); AST 35 U/L (17-59); African American GFR (CKD) >90 (>60 ml/min/1.73 sqM); Albumin 3.8 g/dL (3.5-5.0); Alcohol <10 mg/dL; Alkaline Phosphatase 132 U/L (38-126); Anion Gap 13 mmol/L; Blood Urea Nitrogen 15 mg/dL (9-20); Calcium 8.9 mg/dL (8.4-10.2); Carbon Dioxide 25 mmol/L (22-30); Chloride 99 mmol/L (98-107); Glucose 121 mg/dL (74-99); Non-African American GFR(CKD) 82 (>60 ml/min/1.73 sqM); Potassium 3.2 mmol/L (3.5-5.1); Sodium 137 mmol/L (137-145); Total Bilirubin 1.5 mg/dL (0.2-1.3); Total Protein 6.1 g/dL (6.3-8.2)
--- NOTE | 2024-11-20 19:17 | XR ---
EXAMINATION TYPE: XR chest 2V DATE OF EXAM: 11/20/2024 7:09 PM COMPARISON: Chest radiographs from 11/06/2024 TECHNIQUE: XR chest 2V Frontal and lateral views of the chest. CLINICAL INDICATION:Male, 79 years old with history of altered mental status; FINDINGS: Lungs/Pleura: There is no evidence of pleural effusion, focal consolidation, or pneumothorax. Chroni c senescent parenchymal change. Pulmonary vascularity: Unremarkable. Heart/mediastinum: Cardiomediastinal silhouette is prominent in size. Musculoskeletal: Multiple level degenerative disc disease changes seen throughout the spine. IMPRESSION: No acute cardiopulmonary disease/process. [facility], , 11/20/2024 7:15 PM
[2024-11-20 19:24] LABS: NT-Pro-B-Type Natriuretic Pept 631 pg/mL
[2024-11-20 19:31] LABS: Band Neutrophils % 2 %; Basophils # (M) 0.13 k/uL (0-0.2); Eosinophils # (M) 0.13 k/uL (0-0.7); Lymphocytes # (M) 5.02 k/uL (1.0-4.8); Neutrophils % (M) 55 %; Nucleated Red Blood Cells 0 /100 WBC (0-0); Total Cells Counted 100
[2024-11-20 19:33] LABS: Glucose,Whole Blood 124 mg/dL (70-110)
--- NOTE | 2024-11-20 19:35 | ED ---
General Adult HPI - General Chief complaint: Nausea/Vomiting/Diarrhea Stated complaint: altered mental status Time Seen by Provider: 11/20/24 18:35 Source: EMS Mode of arrival: EMS Limitations: no limitations - History of Present Illness Initial comments: 79-year-old male with past medical history of coronary artery disease, diabetes, hypertension who presents emergency department after an episode of altered mental status. EMS arrived to the house to find the patient confused. He was only oriented to self. Patient ended up having an episode of vomiting. He denied having any chest pain. Patient was hypoxic in the low 80s. Patient pl aced on oxygen and began improving upon his commute into the hospital. Patient arrives alert and oriented x 3. Does admit to feeling shortness of breath. No abdominal pain. Patient denies any additional symptoms to include headache, visual disturbance, lateralizing weakness. Patient does not remember the events of what happened at the house today. no other alleviating, precipitating or modifying factors - Related Data Home Medications Medication Instructions Recorded Confirmed Montelukast Sodium [Singulair] 10 mg PO DAILY 05/25/17 11/20/24 Fluticasone Nasal [place] [Flonase 2 spr EA NOSTRIL DAILY 01/24/21 11/20/24 Nasal [place]] Atorvastatin [Lipitor] 80 mg PO DAILY 03/08/21 11/20/24 Omeprazole 40 mg PO DAILY 07/27/21 11/20/24 Meclizine [Antivert] 25 mg PO TID 09/14/22 11/20/24 ALPRAZolam [Xanax] 0.25 mg PO DAILY PRN 06/05/23 11/20/24 HYDROcodone/APAP 5-325MG [[place] 1 tab PO Q6HR 06/05/23 11/20/24 5-325] Baclofen 10 - 20 mg PO DAILY 11/06/24 11/20/24 Sucralfate [Carafate] 1 gm PO ACHS 11/06/24 11/20/24 cefuroxime axetiL [Ceftin] 500 mg PO BID 11/06/24 11/20/24 Insulin NPH Hum/Reg Insulin Hm 15 unit SQ HS 11/20/24 11/20/24 [NovoLIN 70-30 100 Unit/ml Vial] Insulin NPH Hum/Reg Insulin Hm 25 unit SQ DAILY 11/20/24 11/20/24 [NovoLIN 70-30 100 Unit/ml Vial] lisinopriL [Zestril] 20 mg PO BID 11/20/24 11/20/24 Allergies Allergy/AdvReac Type Severity Reaction Status Date / Time amoxicillin [From Augmentin] Allergy Rash/Hives Verified 11/20/24 20:14 clavulanic acid Allergy Rash/Hives Verified 11/20/24 20:14 [From Augmentin] Review of Systems ROS Statement: Those systems with pertinent positive or pertinent negative responses have been documented in the HPI. ROS Other: All systems not noted in ROS Statement are negative. Past Medical History Past Medical History: Coronary Artery Disease (CAD), Cancer, Diabetes Mellitus, GERD/Reflux, Hypertension, Osteoarthritis (OA) Additional Past Medical History / Comment(s): NIDDM type II, 1999 LEUKEMIA (CLL- remission), sinus problems, seasonal allergies, tinnitis bilaterally, OA hands, R wrist carpal tunnel, past fx with L elbow, R rotator cuff tendon problems, L rotator cuff tear, left knee pain History of Any Multi-Drug Resistant Organisms: None Reported Past Surgical History: Heart Catheterization, Orthopedic Surgery Additional Past Surgical History / Comment(s): LEFT HAND thumb tendon repair. L knee surgery. Past Anesthesia/Blood Transfusion Reactions: No Reported Reaction Past Psychological History: No Psychological Hx Reported Smoking Status: Never smoker Past Alcohol Use History: None Reported Past Drug Use History: None Reported - Past Family History Father Family Medical History: CVA/TIA Additional Family Medical History / Comment(s): Father at the age of 85yrs. Mother Family Medical History: Diabetes Mellitus Additional Family Medical History / Comment(s): Mother at the age of 90yrs. General Exam Limitations: no limitations General appearance: alert, in no apparent distress Head exam: Present: atraumatic, normocephalic, normal inspection Eye exam: Present: normal appearance, PERRL, EOMI. Absent: scleral icterus, conjunctival injection, periorbital swelling ENT exam: Present: normal exam, mucous membranes moist Neck exam: Present: normal inspection. Absent: tenderness, meningismus, lymphadenopathy Respiratory exam: Present: decreased breath sounds. Absent: respiratory distress, wheezes, rales, rhonchi, stridor Cardiovascular Exam: Present: normal rhythm, tachycardia, normal heart sounds. Absent: systolic murmur, diastolic murmur, rubs, gallop, clicks GI/Abdominal exam: Present: soft, normal bowel sounds. Absent: distended, tenderness, guarding, rebound, rigid Extremities exam: Present: normal inspection, full ROM, normal capillary refill. Absent: tenderness, pedal edema, joint swelling, calf tenderness Back exam: Present: normal inspection Neurological exam: Present: alert, oriented X3, CN II-XII intact Psychiatric exam: Present: normal affect, normal mood Skin exam: Present: warm, dry, intact, normal color. Absent: rash Course Vital Signs 11/20/24 11/20/24 11/20/24 18:32 19:35 22:56 Temperature 99.5 F Pulse Rate 113 H 112 H 73 Respiratory 20 18 16 Rate Blood Pressure 148/75 117/79 111/71 O2 Sat by Pulse 86 L 95 97 Oximetry 11/21/24 11/21/24 11/21/24 00:00 02:12 03:25 Temperature Pulse Rate 81 61 67 Respiratory 16 16 16 Rate Blood Pressure 139/77 146/67 145/67 O2 Sat by Pulse 96 96 98 Oximetry 11/21/24 11/21/24 11/21/24 05:26 08:00 08:27 Temperature 98.7 F 97.9 F Pulse Rate 59 L 76 Respiratory 16 18 Rate Blood Pressure 147/72 136/76 O2 Sat by Pulse 100 95 94 L Oximetry 11/21/24 11/21/24 11/21/24 10:00 11:19 13:09 Temperature Pulse Rate 90 93 102 H Respiratory 18 18 22 Rate Blood Pressure 154/65 130/84 O2 Sat by Pulse 93 L 89 L 94 L Oximetry 11/21/24 11/21/24 11/21/24 13:33 14:39 14:50 Temperature Pulse Rate 110 H 104 H 84 Respiratory 22 18 18 Rate Blood Pressure 174/94 144/95 165/75 O2 Sat by Pulse 93 L 94 L 98 Oximetry 11/21/24 11/21/24 11/21/24 15:48 16:54 16:55 Temperature 99.2 F Pulse Rate 73 65 71 Respiratory 18 18 Rate Blood Pressure 156/70 O2 Sat by Pulse 96 94 L Oximetry Medical Decision Making - Medical Decision Making Was pt. sent in by a medical professional or institution (, PA, GEOGRAPHIC INFORMATION SCIENTIST, urgent care, hospital, or senior living...) When possible be specific @ -No Did you speak to anyone other than the patient for history (EMS, parent, family, police, friend...)? What history was obtained from this source @ -Spoke with EMS for history Did you review nursing and triage notes (agree or disagree)? Why? @ -I reviewed and agree with nursing and triage notes Were old charts reviewed (outside hosp., previous admission, EMS record, old EKG, old radiological studies, urgent care reports/EKG's, senior living records)? Report findings @ -No old charts were reviewed Differential Diagnosis (chest pain, altered mental status, abdominal pain women, abdominal pain men, vaginal bleeding, weakness, fever, dyspnea, syncope, headache, dizziness, GI bleed, back pain, seizure, CVA, palpatations, mental health, musculoskeletal)? @ -Differential Altered Mental Status: Hypoglycemia, DKA, hypercapnia, ETOH, overdose, CO poisoning, trauma, myxedema coma, HTN encephalopathy, infection, encephalitis, psychosis, intercranial hemorrhage, hepatic encephalopathy, meningitis, CVA, this is not meant to be an all-inclusive list EKG interpreted by me (3pts min.). @ -Yes and demonstrates sinus tachycardia with a rate of 118. AL interval 182. QRS 102. QTc of 384. No acute ST segment elevation. X-rays interpreted by me (1pt min.). @ -Yes which demonstrates no acute process CT interpreted by me (1pt min.). @ -Yes which demonstrates multifocal pneumonia U/S interpreted by me (1pt. min.). @ -None done What testing was considered but not performed or refused? (CT, X-rays, U/S, labs)? Why? @ -None What meds were considered but not given or refused? Why? @ -None Did you discuss the management of the patient with other professionals (professionals i.e. , PA, GEOGRAPHIC INFORMATION SCIENTIST, lab, RT, psych nurse, social problems specialist, pool technician, teacher, welfare officer, nurse case management)? Give summary @ -Spoke with Dr. Gardner for the admission Was smoking cessation discussed for >3mins.? @ -No Was critical care preformed (if so, how long)? @ -Yes, 35 minutes for hypoxic respiratory failure Were there social determinants of health that impacted care today? How? (Homelessness, low income, unemployed, alcoholism, drug addiction, transportation, low edu. Level, literacy, decrease access to med. care, correction, rehab)? @ -No Was there de-escalation of care discussed even if they declined (Discuss DNR or withdrawal of care, Hospice)? DNR status @ -No What co-morbidities impacted this encounter? (DM, HTN, Smoking, COPD, CAD, Cancer, CVA, ARF, Chemo, Hep., AIDS, mental health diagnosis, sleep apnea, morbid obesity)? @ -Diabetes mellitus Was patient admitted / discharged? Hospital course, mention meds given and rou te, prescriptions, significant lab abnormalities, going to OR and other pertinent info. @ -Upon arrival patient seen and evaluated in trauma 2. Patient placed on continuous pulse ox and cardiac monitoring. Twelve-lead EKG is obtained. Laboratory studies are conducted. Patient is alert and oriented x 3 at this time. No confusion. NIH is 0. Patient does go for chest x-ray. CT of the brain and CT of the chest are performed. Patient does have identification of multifocal pneumonia. He is initiated on antibiotics. He remains on oxygen. I recommended admission due to his initial confused state, multifocal pneumonia with hypoxia. Patient was agreeable to admission. Spoke with Dr. Gardner for the admission Undiagnosed new problem with uncertain prognosis? @ -No Drug Therapy requiring intensive monitoring for toxicity (Heparin, Nitro, Insulin, Cardizem)? @ -No Were any procedures done? @ -No Diagnosis/symptom? @ -Acute transient encephalopathy, acute hypoxia, multifocal pneumonia Acute, or Chronic, or Acute on Chronic? @ -Acute Uncomplicated (without systemic symptoms) or Complicated (systemic symptoms)? @ -Complicated Side effects of treatment? @ -No Exacerbation, Progression, or Severe Exacerbation? @ -No Poses a threat to life or bodily function? How? (Chest pain, [place], [place], pneumonia, PE, COPD, DKA, ARF, appy, cholecystitis, CVA, Diverticulitis, Homicidal, Suicidal, threat to staff... and all critical care pts) @ -Yes this patient was significantly altered on scene - Lab Data Result diagrams: 11/22/24 06:52 11/22/24 06:52 Lab Results 11/20/24 11/20/24 11/20/24 Range/Units 18:54 18:54 18:54 WBC 13.2 H (3.8-10.6) k/uL RBC 3.69 L (4.30-5.90) m/uL Hgb 11.7 L (13.0-17.5) gm/dL Hct 32.9 L (39.0-53.0) % MCV 89.2 (80.0-100.0) fL MCH 31.7 (25.0-35.0) pg MCHC 35.5 (31.0-37.0) g/dL RDW 14.4 (11.5-15.5) % Plt Count 137 L (150-450) k/uL MPV 8.2 Neutrophils % (Manual) 55 % Band Neuts % (Manual) 2 % Lymphocytes % (Manual) 38 % Monocytes % (Manual) 3 % Eosinophils % (Manual) 1 % Basophils % (Manual) 1 % Neutrophils # (Manual) 7.50 (1.3-7.7) k/uL Lymphocytes # (Manual) 5.02 H (1.0-4.8) k/uL Monocytes # (Manual) 0.40 (0-1.0) k/uL Eosinophils # (Manual) 0.13 (0-0.7) k/uL Basophils # (Manual) 0.13 (0-0.2) k/uL Nucleated RBCs 0 (0-0) /100 WBC Manual Slide Review Performed PT 12.1 (10.0-12.5) sec INR 1.1 (<1.2) APTT 22.4 (22.0-30.0) sec Sodium (137-145) mmol/L Potassium (3.5-5.1) mmol/L Chloride (98-107) mmol/L Carbon Dioxide (22-30) mmol/L Anion Gap mmol/L BUN (9-20) mg/dL Creatinine (0.66-1.25) mg/dL Est GFR (CKD-EPI)AfAm (>60 ml/min/1.73 sqM) Est GFR (CKD-EPI)NonAf (>60 ml/min/1.73 sqM) Glucose (74-99) mg/dL POC Glucose (mg/dL) (70-110) mg/dL POC Glu Mechanical Systems Designer ID Plasma Lactic Acid Chucho (0.7-2.0) mmol/L Calcium (8.4-10.2) mg/dL Total Bilirubin (0.2-1.3) mg/dL AST (17-59) U/L ALT (4-49) U/L Alkaline Phosphatase (38-126) U/L Troponin I (0.000-0.034) ng/mL NT-Pro-B Natriuret Pep pg/mL Total Protein (6.3-8.2) g/dL Albumin (3.5-5.0) g/dL Urine Color Urine Appearance (Clear) Urine pH (5.0-8.0) Ur Specific [place] (1.001-1.035) Urine Protein (Negative) Urine Glucose (UA) (Negative) Urine Ketones (Negative) Urine Blood (Negative) Urine Nitrite (Negative) Urine Bilirubin (Negative) Urine Urobilinogen (<2.0) mg/dL Ur Leukocyte Esterase (Negative) Urine RBC (0-5) /hpf Urine WBC (0-5) /hpf Urine Opiates Screen Detected H (NotDetected) Ur Oxycodone Screen Not Detected (NotDetected) Urine Methadone Screen Not Detected (NotDetected) Ur Barbiturates Screen Not Detected (NotDetected) U Tricyclic Antidepress Not Detected (NotDetected) Ur Phencyclidine Scrn Not Detected (NotDetected) Ur Amphetamines Screen Not Detected (NotDetected) U Methamphetamines Scrn Not Detected (NotDetected) U Benzodiazepines Scrn Not Detected (NotDetected) Urine Cocaine Screen Not Detected (NotDetected) U Marijuana (THC) Screen Not Detected (NotDetected) Serum Alcohol mg/dL Influenza Type A (PCR) (Not Detectd) Influenza Type B (PCR) (Not Detectd) RSV (PCR) (Not Detectd) SARS-CoV-2 (PCR) (Not Detectd) 11/20/24 11/20/24 11/20/24 Range/Units 18:54 18:54 18:55 WBC (3.8-10.6) k/uL RBC (4.30-5.90) m/uL Hgb (13.0-17.5) gm/dL Hct (39.0-53.0) % MCV (80.0-100.0) fL MCH (25.0-35.0) pg MCHC (31.0-37.0) g/dL RDW (11.5-15.5) % Plt Count (150-450) k/uL MPV Neutrophils % (Manual) % Band Neuts % (Manual) % Lymphocytes % (Manual) % Monocytes % (Manual) % Eosinophils % (Manual) % Basophils % (Manual) % Neutrophils # (Manual) (1.3-7.7) k/uL Lymphocytes # (Manual) (1.0-4.8) k/uL Monocytes # (Manual) (0-1.0) k/uL Eosinophils # (Manual) (0-0.7) k/uL Basophils # (Manual) (0-0.2) k/uL Nucleated RBCs (0-0) /100 WBC Manual Slide Review PT (10.0-12.5) sec INR (<1.2) APTT (22.0-30.0) sec Sodium 137 (137-145) mmol/L Potassium 3.2 L (3.5-5.1) mmol/L Chloride 99 (98-107) mmol/L Carbon Dioxide 25 (22-30) mmol/L Anion Gap 13 mmol/L BUN 15 (9-20) mg/dL Creatinine 0.90 (0.66-1.25) mg/dL Est GFR (CKD-EPI)AfAm >90 (>60 ml/min/1.73 sqM) Est GFR (CKD-EPI)NonAf 82 (>60 ml/min/1.73 sqM) Glucose 121 H (74-99) mg/dL POC Glucose (mg/dL) (70-110) mg/dL POC Glu Mechanical Systems Designer ID Plasma Lactic Acid Chucho (0.7-2.0) mmol/L Calcium 8.9 (8.4-10.2) mg/dL Total Bilirubin 1.5 H (0.2-1.3) mg/dL AST 35 (17-59) U/L ALT 21 (4-49) U/L Alkaline Phosphatase 132 H (38-126) U/L Troponin I 0.043 H* (0.000-0.034) ng/mL NT-Pro-B Natriuret Pep 631 pg/mL Total Protein 6.1 L (6.3-8.2) g/dL Albumin 3.8 (3.5-5.0) g/dL Urine Color Colorless Urine Appearance Clear (Clear) Urine pH 7.0 (5.0-8.0) Ur Specific [place] 1.013 (1.001-1.035) Urine Protein 1+ H (Negative) Urine Glucose (UA) Trace H (Negative) Urine Ketones Negative (Negative) Urine Blood Small H (Negative) Urine Nitrite Negative (Negative) Urine Bilirubin Negative (Negative) Urine Urobilinogen <2.0 (<2.0) mg/dL Ur Leukocyte Esterase Negative (Negative) Urine RBC 6 H (0-5) /hpf Urine WBC 1 (0-5) /hpf Urine Opiates Screen (NotDetected) Ur Oxycodone Screen (NotDetected) Urine Methadone Screen (NotDetected) Ur Barbiturates Screen (NotDetected) U Tricyclic Antidepress (NotDetected) Ur Phencyclidine Scrn (NotDetected) Ur Amphetamines Screen (NotDetected) U Methamphetamines Scrn (NotDetected) U Benzodiazepines Scrn (NotDetected) Urine Cocaine Screen (NotDetected) U Marijuana (THC) Screen (NotDetected) Serum Alcohol <10 mg/dL Influenza Type A (PCR) (Not Detectd) Influenza Type B (PCR) (Not Detectd) RSV (PCR) (Not Detectd) SARS-CoV-2 (PCR) (Not Detectd) 11/20/24 11/20/24 11/20/24 Range/Units 18:55 19:31 19:32 WBC (3.8-10.6) k/uL RBC (4.30-5.90) m/uL Hgb (13.0-17.5) gm/dL Hct (39.0-53.0) % MCV (80.0-100.0) fL MCH (25.0-35.0) pg MCHC (31.0-37.0) g/dL RDW (11.5-15.5) % Plt Count (150-450) k/uL MPV Neutrophils % (Manual) % Band Neuts % (Manual) % Lymphocytes % (Manual) % Monocytes % (Manual) % Eosinophils % (Manual) % Basophils % (Manual) % Neutrophils # (Manual) (1.3-7.7) k/uL Lymphocytes # (Manual) (1.0-4.8) k/uL Monocytes # (Manual) (0-1.0) k/uL Eosinophils # (Manual) (0-0.7) k/uL Basophils # (Manual) (0-0.2) k/uL Nucleated RBCs (0-0) /100 WBC Manual Slide Review PT (10.0-12.5) sec INR (<1.2) APTT (22.0-30.0) sec Sodium (137-145) mmol/L Potassium (3.5-5.1) mmol/L Chloride (98-107) mmol/L Carbon Dioxide (22-30) mmol/L Anion Gap mmol/L BUN (9-20) mg/dL Creatinine (0.66-1.25) mg/dL Est GFR (CKD-EPI)AfAm (>60 ml/min/1.73 sqM) Est GFR (CKD-EPI)NonAf (>60 ml/min/1.73 sqM) Glucose (74-99) mg/dL POC Glucose (mg/dL) 124 H (70-110) mg/dL POC Glu Mechanical Systems Designer ID Tavon Griffin Plasma Lactic Acid Chucho 1.0 (0.7-2.0) mmol/L Calcium (8.4-10.2) mg/dL Total Bilirubin (0.2-1.3) mg/dL AST (17-59) U/L ALT (4-49) U/L Alkaline Phosphatase (38-126) U/L Troponin I (0.000-0.034) ng/mL NT-Pro-B Natriuret Pep pg/mL Total Protein (6.3-8.2) g/dL Albumin (3.5-5.0) g/dL Urine Color Urine Appearance (Clear) Urine pH (5.0-8.0) Ur Specific [place] (1.001-1.035) Urine Protein (Negative) Urine Glucose (UA) (Negative) Urine Ketones (Negative) Urine Blood (Negative) Urine Nitrite (Negative) Urine Bilirubin (Negative) Urine Urobilinogen (<2.0) mg/dL Ur Leukocyte Esterase (Negative) Urine RBC (0-5) /hpf Urine WBC (0-5) /hpf Urine Opiates Screen (NotDetected) Ur Oxycodone Screen (NotDetected) Urine Methadone Screen (NotDetected) Ur Barbiturates Screen (NotDetected) U Tricyclic Antidepress (NotDetected) Ur Phencyclidine Scrn (NotDetected) Ur Amphetamines Screen (NotDetected) U Methamphetamines Scrn (NotDetected) U Benzodiazepines Scrn (NotDetected) Urine Cocaine Screen (NotDetected) U Marijuana (THC) Screen (NotDetected) Serum Alcohol mg/dL Influenza Type A (PCR) Not Detected (Not Detectd) Influenza Type B (PCR) Not Detected (Not Detectd) RSV (PCR) Not Detected (Not Detectd) SARS-CoV-2 (PCR) Not Detected (Not Detectd) Disposition Clinical Impression: Hypoxia, Pneumonia, Vomiting, Altered mental status Disposition: ADMITTED IP TO THIS [facility] Condition: Stable Is patient prescribed a controlled substance at d/c from ED?: No Time of Disposition: 22:14 Decision to Admit Reason: Admit from EC Decision Date: 11/20/24 Decision Time: 22:14
[2024-11-20 19:39] LABS: Influenza A Not Detected (Not Detectd); Influenza B Not Detected (Not Detectd); RSV Not Detected (Not Detectd)
--- NOTE | 2024-11-20 20:17 | CT ---
EXAMINATION TYPE: CT brain wo con CT DLP: 1753 mGycm, Automated exposure control for dose reduction was used. DATE OF EXAM: 11/20/2024 8:10 PM COMPARISON: CT brain C-spine 11/06/2024, 10/08/2023, 12/12/2021, CT brain 04/05/2022 CLINICAL INDICATION:Male, 79 years old with history of Altered mental status, AMS. TECHNIQUE: Brain: Multiple axial CT images of the brain were obtained without IV contrast. . Coronal and sagitta l reformats reviewed. FINDINGS: Brain: Extra-axial spaces: No abnormal extra-axial fluid collections. Ventricular system: Dilatation in proportion to cerebral atrophy. Cerebral parenchyma: Cerebral atrophy. No acute intraparenchymal hemorrhage or mass effect. The vela -white junction is well differentiated. Scattered hypoattenuating areas are seen within the periventr icular white matter. Cerebellum: Unremarkable. Mass effect: No evidence of midline shift. Intracranial vasculature: Atherosclerotic calcifications of the intracranial vessels. Soft tissues: Normal. Calvarium/osseous structures: No depressed skull fracture. Paranasal sinuses and mastoid air cells: Clear Visualized orbits: Right aphakia. Postsurgical changes with similar hyperdense material identified wi thin the left globe. IMPRESSION: 1. No acute intracranial process. 2. Age-related atrophy with nonspecific white matter changes, likely secondary to chronic small vesse l ischemic disease. [facility], , 11/20/2024 8:15 PM
--- NOTE | 2024-11-20 20:23 | CT ---
EXAMINATION TYPE: CT chest angio for PE CT DLP: 696.7 mGycm, Automated exposure control for dose reduction was used. DATE OF EXAM: 11/20/2024 8:10 PM COMPARISON: Chest radiograph from same day. CTA chest 07/29/2021 CLINICAL INDICATION:Male, 79 years old with history of hypoxia; Hypoxia. TECHNIQUE/CONTRAST: CTA scan of the thorax is performed with IV Contrast, patient injected with 80 ml mL of Isovue 370, p ulmonary embolism protocol. MIP images are created and reviewed. FINDINGS: Pulmonary Artery: There is no evidence for a filling defect within the pulmonary vasculature to sugge st acute pulmonary embolism. The pulmonary artery is of normal size. Lungs/Pleura: No pleural effusion or pneumothorax. Scattered groundglass opacities throughout both logan ngs. Airway: Large airways are patent. Trace secretions within the visualized trachea. Heart: Heart is within normal limits for size.. No pericardial effusion. Coronary artery calcificatio ns. Vasculature: No evidence of aortic aneurysm. Mediastinum: No evidence of adenopathy. Musculoskeletal: Mild degenerative disc disease changes are present throughout the thoracolumbar spin e. No acute osseous abnormality. Soft Tissues: Unremarkable. Lower neck: No significant findings. Upper Abdomen: Cholelithiasis. Fluid identified within the visualized esophagus.. IMPRESSION: 1. No evidence of pulmonary embolism. 2. Diffuse patchy groundglass pulmonary opacities suggests atypical pulmonary infection. 3. Cholelithiasis. 4. Fluid identified within the visualized esophagus. Correlate for GERD. [facility], , 11/20/2024 8:21 PM
[2024-11-20] MEDS ORDERED: PNEUMONIA PROTOCOL UTILIZED 1 EACH MISC PO PRN (21:33)
[2024-11-20] MEDS: AZITHROMYCIN 500 MG in SODIUM CHLORIDE 0.9% 250 ML IVPB STA (23:04)
[2024-11-21] MEDS ORDERED: DEXTROSE 50% SYRINGE 50 ML IVP PRN ×2 (02:01)
[2024-11-21 02:25] LABS: Glucose,Whole Blood 136 mg/dL (70-110)
[2024-11-21] MEDS: HYDROcodone/APAP 5-325MG 1 EACH TAB PO SCH ×2 (02:26→08:32)
--- NOTE | 2024-11-21 03:02 | P.HPIM ---
History of Present Illness H&P Date: 11/21/24 Patient is a 79-year-old male with past medical history significant for coronary artery disease, insulin-dependent diabetes mellitus, hypertension presents to the emergency department today due to altered mental status. Patient is unsure of the events surrounding his admission so most of the history is obtained via records and hospital staff. Patient was having shortness of breath at home and his called EMS. When EMS arrived to his house he was oriented only to self. He was found to be hypoxic in the low 80s and was placed on supplemental oxygen. Patient denies wearing oxygen at home. Upon arrival to the hospital oxygen saturation had improved and he was AO x 3. He also had an episode of vomiting. Patient reports that he has been feeling sick recently with myalgias, cough productive of greenish sputum, actively being treated for sinus infection. He denies nausea/vomiting, abdominal pain, chest pain, dyspnea, weight loss. Initial vitals: BP 148/75, ME 113 bpm, T 99.5 F, RR 20, O2 saturation 86% on room air Initial labs: WBCs 13.2, RBC 3.69, hemoglobin 11.7, hematocrit 32.9, platelets 137, sodium 137, potassium 3.2, chloride 99, CO2 25, BUN 15, creatinine 0.9, total bilirubin 1.5, alkaline phosphatase 132, troponin x 2 0.043 and 0.091, total protein 6.1; urinalysis 1+ protein, trace glucose Initial EKG: Sinus tachycardia with ventricular rate of 118 bpm, QTc 384 ms, left axis deviation, left ventricular hypertrophy Initial chest x-ray: No acute cardiopulmonary disease/process Initial CTA chest: No evidence of pulmonary embolism, diffuse patchy groundglass pulmonary opacities suggestive of atypical pulmonary infection, cholelithiasis, fluid identified within the visualized esophagus Initial brain CT: No acute intracranial process; age-related atrophy with nonspecific white matter changes, likely secondary to chronic small vessel ischemic changes ED documentation reviewed. Given: Zithromax 500 mg IV x 1, ceftriaxone 2 g IV x 1 0.9% saline 500 mL x 1 Review of systems: Pertinent positives and negatives as discussed in HPI, a complete review of s ystems was performed and all other systems are negative. Social history: Tobacco: None reported Alcohol: None reported Recreational drugs: None reported Travel: None reported Sick contacts: None reported Physical examination: Vital signs reviewed General: Nontoxic, no distress, appears stated age, well-appearing Derm: Warm, dry, intact Head: Atraumatic, normocephalic, symmetric Eyes: EOMI, anicteric sclera Mouth: No lip lesion, mucus membranes moist Cardiovascular: S1-S2 regular, no murmur Lungs: Diffuse ronchi and rales greatest in mid lung xiong, no accessory muscle use Abdominal: Soft, non-tender to palpation Extremities: No cyanosis, clubbing, or pedal edema; left foot cold to ankle; ulcer on plantar surface of right foot overlying 5th metatarsal appearing dry without surrounding erythema or discharge Neuro: Alert, oriented x 4, gross neurological examination did not reveal any focal deficits. Cranial nerves II to XII grossly intact. Psych: Appropriate affect and mood Assessment and Plan: Patient is a 79-year-old male with past medical history significant for coronary artery disease, insulin-dependent diabetes mellitus, hypertension admitted for acute hypoxic respiratory failure secondary to pneumonia. Active #. Acute hypoxic respiratory failure secondary to pneumonia, community acquired #. Sepsis, secondary to pneumonia #. Leukocytosis, secondary to above Continue with azithromycin 500 mg PO daily Continue with Rocephin 2 g IV daily Continue with DuoNebs every 4 hours as needed Continue with 0.9% saline IV 130 cc/h Continue oxygen supplementation to maintain oxygen saturation >94% Blood culture pending Obtain sputum culture Obtain Legionella antigen Check procalcitonin levels and consider repeat 4-plex testing #. Elevated troponin, likely type 2 [place] in setting of sepsis and pneumonia Troponin x 2 0.043, 0.091 No evidence of pulmonary embolism EKG shows no ST elevations or depressions Patient denying chest discomfort or SOB Continue to trend troponin Cardiology consulted #. Hypokalemia Replete with potassium chloride 40 mEq PO x 2 and monitor for resolution #. Elevated bilirubin #. Elevated alkaline phosphatase Repeat CMP in the morning #. Normocytic anemia, at baseline #. Thrombocytopenia Monitor CBC #. Ulcer on plantar surface of right foot Consult wound management Chronic #. Hypertension Continue with lisinopril 20 mg PO twice daily #. Insulin-dependent diabetes mellitus Continue with insulin sliding scale Accu-Cheks ACHS Monitor for hypoglycemia #. Coronary artery disease Continue with Lipitor 80 mg PO daily DVT prophylaxis: Lovenox subcutaneous 40 mg daily GI prophylaxis: Omeprazole 40 mg daily The patient is admitted with an anticipated less than 2 midnight stay for evaluation of acute hypoxic respiratory failure secondary to pneumonia. CODE STATUS: Full code Anticipated discharge place: Home Past Medical History Past Medical History: Coronary Artery Disease (CAD), Cancer, Diabetes Mellitus, GERD/Reflux, Hypertension, Osteoarthritis (OA) Additional Past Medical History / Comment(s): NIDDM type II, 1999 LEUKEMIA (CLL- remission), sinus problems, seasonal allergies, tinnitis bilaterally, OA hands, R wrist carpal tunnel, past fx with L elbow, R rotator cuff tendon problems, L rotator cuff tear, left knee pain History of Any Multi-Drug Resistant Organisms: None Reported Past Surgical History: Heart Catheterization, Orthopedic Surgery Additional Past Surgical History / Comment(s): LEFT HAND thumb tendon repair. L knee surgery. Past Anesthesia/Blood Transfusion Reactions: No Reported Reaction Past Psychological History: No Psychological Hx Reported Smoking Status: Never smoker Past Alcohol Use History: None Reported Past Drug Use History: None Reported - Past Family History Father Family Medical History: CVA/TIA Additional Family Medical History / Comment(s): Father at the age of 85yrs. Mother Family Medical History: Diabetes Mellitus Additional Family Medical History / Comment(s): Mother at the age of 90yrs. Medications and Allergies Home Medications Medication Instructions Recorded Confirmed Type Montelukast Sodium [Singulair] 10 mg PO DAILY 05/25/17 11/20/24 History Fluticasone Nasal [place] [Flonase 2 spr EA NOSTRIL DAILY 01/24/21 11/20/24 History Nasal [place]] Atorvastatin [Lipitor] 80 mg PO DAILY 03/08/21 11/20/24 History Omeprazole 40 mg PO DAILY 07/27/21 11/20/24 History Meclizine [Antivert] 25 mg PO TID 09/14/22 11/20/24 History ALPRAZolam [Xanax] 0.25 mg PO DAILY PRN 06/05/23 11/20/24 History HYDROcodone/APAP 5-325MG [[place] 1 tab PO Q6HR 06/05/23 11/20/24 History 5-325] Baclofen 10 - 20 mg PO DAILY 11/06/24 11/20/24 History Sucralfate [Carafate] 1 gm PO ACHS 11/06/24 11/20/24 History cefuroxime axetiL [Ceftin] 500 mg PO BID 11/06/24 11/20/24 History Insulin NPH Hum/Reg Insulin Hm 15 unit SQ HS 11/20/24 11/20/24 History [NovoLIN 70-30 100 Unit/ml Vial] Insulin NPH Hum/Reg Insulin Hm 25 unit SQ DAILY 11/20/24 11/20/24 History [NovoLIN 70-30 100 Unit/ml Vial] lisinopriL [Zestril] 20 mg PO BID 11/20/24 11/20/24 History Allergies Allergy/AdvReac Type Severity Reaction Status Date / Time amoxicillin [From Augmentin] Allergy Rash/Hives Verified 11/20/24 20:14 clavulanic acid Allergy Rash/Hives Verified 11/20/24 20:14 [From Augmentin] Physical Exam Vitals: Vital Signs Temp Pulse Resp BP Pulse Ox 11/20/24 22:56 73 16 111/71 97 11/20/24 19:35 112 H 18 117/79 95 11/20/24 18:32 99.5 F 113 H 20 148/75 86 L Intake and Output 11/20/24 11/20/24 11/21/24 14:59 22:59 06:59 Other: Weight 99.79 kg Results CBC & Chem 7: 11/20/24 18:54 11/20/24 18:54 Labs: Abnormal Lab Results - Last 24 Hours (Table) 11/20/24 11/20/24 11/20/24 Range/Units 18:54 18:54 18:54 WBC 13.2 H (3.8-10.6) k/uL RBC 3.69 L (4.30-5.90) m/uL Hgb 11.7 L (13.0-17.5) gm/dL Hct 32.9 L (39.0-53.0) % Plt Count 137 L (150-450) k/uL Lymphocytes # (Manual) 5.02 H (1.0-4.8) k/uL Potassium 3.2 L (3.5-5.1) mmol/L Glucose 121 H (74-99) mg/dL POC Glucose (mg/dL) (70-110) mg/dL Total Bilirubin 1.5 H (0.2-1.3) mg/dL Alkaline Phosphatase 132 H (38-126) U/L Troponin I (0.000-0.034) ng/mL Total Protein 6.1 L (6.3-8.2) g/dL Urine Protein (Negative) Urine Glucose (UA) (Negative) Urine Blood (Negative) Urine RBC (0-5) /hpf Urine Opiates Screen Detected H (NotDetected) 11/20/24 11/20/24 11/20/24 Range/Units 18:54 18:55 19:31 WBC (3.8-10.6) k/uL RBC (4.30-5.90) m/uL Hgb (13.0-17.5) gm/dL Hct (39.0-53.0) % Plt Count (150-450) k/uL Lymphocytes # (Manual) (1.0-4.8) k/uL Potassium (3.5-5.1) mmol/L Glucose (74-99) mg/dL POC Glucose (mg/dL) 124 H (70-110) mg/dL Total Bilirubin (0.2-1.3) mg/dL Alkaline Phosphatase (38-126) U/L Troponin I 0.043 H* (0.000-0.034) ng/mL Total Protein (6.3-8.2) g/dL Urine Protein 1+ H (Negative) Urine Glucose (UA) Trace H (Negative) Urine Blood Small H (Negative) Urine RBC 6 H (0-5) /hpf Urine Opiates Screen (NotDetected) Thrombosis Risk Factor Assmnt - DVT/VTE Prophylaxis DVT/VTE Prophylaxis: Pharmacologic Prophylaxis ordered - Choose All That Apply Each Factor Represents 1 point: Obesity (BMI >25), Sepsis (< 1month), Serious lung disease incl. pneumonia (< 1month) Each Risk Factor Represents 3 Points: Age 75 years or older Thrombosis Risk Factor Assessment Total Risk Factor Score: 6 Thrombosis Risk Factor Assessment Level: High Risk
[2024-11-21] MEDS: POTASSIUM CHLORIDE ER 20 MEQ TAB.ER PO SCH (03:22)
[2024-11-21] MEDS: SODIUM CHLORIDE 0.9% 1,000 ML IV SCH (03:22)
[2024-11-21 07:54] LABS: Basophils # (A) 0.1 k/uL (0-0.2); Basophils % (A) 0 %; Eosinophils # (A) 0.3 k/uL (0-0.7); Eosinophils % (A) 2 %; HCT 35.9 % (39.0-53.0); HGB 12.4 gm/dL (13.0-17.5); Lymphocytes # (A) 9.2 k/uL (1.0-4.8); Lymphocytes % (A) 56 %; MCH 31.7 pg (25.0-35.0); MCHC 34.5 g/dL (31.0-37.0); MCV 91.7 fL (80.0-100.0); Monocytes # (A) 0.7 k/uL (0-1.0); Monocytes % (A) 4 %; Neutrophils # (A) 5.6 k/uL (1.3-7.7); Neutrophils % (A) 34 %; Platelet Count 136 k/uL (150-450); RBC 3.92 m/uL (4.30-5.90); RDW 14.5 % (11.5-15.5); WBC 16.4 k/uL (3.8-10.6)
--- NOTE | 2024-11-21 07:57 | XR ---
EXAMINATION TYPE: XR chest 1V portable DATE OF EXAM: 11/21/2024 5:52 AM COMPARISON: Chest radiograph from one day prior. CLINICAL INDICATION: Male, 79 years old with history of pneumonia; [facility] TECHNIQUE: XR chest 1V portable Frontal view of the chest. FINDINGS: Lungs/Pleura: Multifocal airspace opacities. No evidence of pneumothorax or pleural effusion. Pulmonary vascularity: Unremarkable. Heart/mediastinum: Cardiomediastinal silhouette is unremarkable. Musculoskeletal: No acute osseous pathology. IMPRESSION: Bilateral midlung airspace opacities concerning for pneumonia [facility], , 11/21/2024 7:54 AM
[2024-11-21 08:10] LABS: Glucose,Whole Blood 138 mg/dL (70-110)
[2024-11-21 08:10] LABS: ALT 23 U/L (4-49); AST 43 U/L (17-59); African American GFR (CKD) >90 (>60 ml/min/1.73 sqM); Albumin 3.9 g/dL (3.5-5.0); Alkaline Phosphatase 130 U/L (38-126); Anion Gap 10 mmol/L; Blood Urea Nitrogen 15 mg/dL (9-20); Calcium 8.9 mg/dL (8.4-10.2); Carbon Dioxide 30 mmol/L (22-30); Chloride 98 mmol/L (98-107); Glucose 136 mg/dL (74-99); Non-African American GFR(CKD) 85 (>60 ml/min/1.73 sqM); Potassium 3.4 mmol/L (3.5-5.1); Sodium 138 mmol/L (137-145); Total Bilirubin 1.4 mg/dL (0.2-1.3); Total Protein 6.3 g/dL (6.3-8.2)
[2024-11-21] MEDS: INSULIN ASPART (NovoLOG) 100 UNIT/ML VIAL SQ SCH (08:13)
[2024-11-21] MEDS: MONTELUKAST 10 MG TAB PO SCH (08:31)
[2024-11-21] MEDS: POTASSIUM CHLORIDE ER 20 MEQ TAB.ER PO STA (08:31)
[2024-11-21] MEDS: ATORVASTATIN 80 MG TAB PO SCH (08:31)
[2024-11-21] MEDS: lisinopriL 20 MG TAB PO SCH (08:32)
[2024-11-21] MEDS: PANTOPRAZOLE 40 MG TABLET PO SCH (08:32)
[2024-11-21] MEDS: AZITHROMYCIN 500 MG TAB PO SCH (08:33)
[2024-11-21] MEDS: ENOXAPARIN 40 MG/0.4 ML SYRINGE SQ SCH (08:33)
[2024-11-21] MEDS ORDERED: HEPARIN SODIUM 1,000 UN/ML (10ML VL) IV PRN (08:43)
[2024-11-21] MEDS: ASPIRIN 81 MG PO SCH (09:03)
[2024-11-21] MEDS: METOPROLOL SUCCINATE (ER) 25 MG TAB.ER.24H PO SCH (09:03)
[2024-11-21] MEDS: HEPARIN SODIUM 1,000 UN/ML (10ML VL) IV ONE (09:05)
[2024-11-21] MEDS: HEPARIN SOD,PORK IN 0.45% NACL 25,000 UNIT in 0.45% NACL 1 250ML.BAG IV SCH (09:07)
--- NOTE | 2024-11-21 09:20 | P.CONS ---
History of Present Illness - Reason for Consult Consult date: 11/21/24 wound care - History of Present Illness This is a 79-year-old patient with history of Coronary artery disease, diabetes, hypertension, with a reoccurring ulceration to the right plantar foot. Patient states that he has been dealing with the ulceration for the last 5 years. He normally sees podiatry. However due to his inability to drive he has not been going to the hander in regularly. Patient also states that he utilizes some type of salve to the site which then will heal but reopen after a few months. Patient has a ulceration to the fifth metatarsal head dorsal aspect measuring approximately 1.2 x 1.3 x 0.3 cm wound edges are not attached to the wound base granulation seen in the wound bed however significant amount of slough and nonviable tissue present. Periwound has significant callus. No tunneling. Mi nimal undermining noted. Review Of Systems: Constitutional: No fever, no chills, no night sweats. No weight change. No weakness, fatigue or lethargy. No daytime sleepiness. Integumentary:reports wounds, no lesions. No rash or pruritus. No unusual bruising. No change in hair or nails. Physical exam: General Appearance: Alert, cooperative, no distress, appears stated age. Skin: See HPI all other Skin color, texture, tugor normal, no rashes or lesions. Neurologic: Alert oriented x3 Assessment: 1. Nonpressure ulceration with fat layer exposure right foot 2. Diabetic foot ulcer Plan: 1. Apply honey gel and bordered foam. Nonweightbearing to the right forefoot. Utilize walker. Patient would benefit from debridement and advanced wound care and wound care center. We be happy to see him upon discharge. Patient states that he is unable to come related to inability to drive. Thank you for the consultation any questions please contact the wound care center DNP note has been reviewed and discussed with Dr. Ash and the impression and plan of care has been directed as dictated. Past Medical History Past Medical History: Coronary Artery Disease (CAD), Cancer, Diabetes Mellitus, GERD/Reflux, Hypertension, Osteoarthritis (OA) Additional Past Medical History / Comment(s): NIDDM type II, 1999 LEUKEMIA (CLL- remission), sinus problems, seasonal allergies, tinnitis bilaterally, OA hands, R wrist carpal tunnel, past fx with L elbow, R rotator cuff tendon problems, L rotator cuff tear, left knee pain History of Any Multi-Drug Resistant Organisms: None Reported Past Surgical History: Heart Catheterization, Orthopedic Surgery Additional Past Surgical History / Comment(s): LEFT HAND thumb tendon repair. L knee surgery. Past Anesthesia/Blood Transfusion Reactions: No Reported Reaction Past Psychological History: No Psychological Hx Reported Smoking Status: Never smoker Past Alcohol Use History: None Reported Past Drug Use History: None Reported - Past Family History Father Family Medical History: CVA/TIA Additional Family Medical History / Comment(s): Father at the age of 85yrs. Mother Family Medical History: Diabetes Mellitus Additional Family Medical History / Comment(s): Mother at the age of 90yrs. Medications and Allergies Home Medications Medication Instructions Recorded Confirmed Type Montelukast Sodium [Singulair] 10 mg PO DAILY 05/25/17 11/20/24 History Fluticasone Nasal [place] [Flonase 2 spr EA NOSTRIL DAILY 01/24/21 11/20/24 History Nasal [place]] Atorvastatin [Lipitor] 80 mg PO DAILY 03/08/21 11/20/24 History Omeprazole 40 mg PO DAILY 07/27/21 11/20/24 History Meclizine [Antivert] 25 mg PO TID 09/14/22 11/20/24 History ALPRAZolam [Xanax] 0.25 mg PO DAILY PRN 06/05/23 11/20/24 History HYDROcodone/APAP 5-325MG [[place] 1 tab PO Q6HR 06/05/23 11/20/24 History 5-325] Baclofen 10 - 20 mg PO DAILY 11/06/24 11/20/24 History Sucralfate [Carafate] 1 gm PO ACHS 11/06/24 11/20/24 History cefuroxime axetiL [Ceftin] 500 mg PO BID 11/06/24 11/20/24 History Insulin NPH Hum/Reg Insulin Hm 15 unit SQ HS 11/20/24 11/20/24 History [NovoLIN 70-30 100 Unit/ml Vial] Insulin NPH Hum/Reg Insulin Hm 25 unit SQ DAILY 11/20/24 11/20/24 History [NovoLIN 70-30 100 Unit/ml Vial] lisinopriL [Zestril] 20 mg PO BID 11/20/24 11/20/24 History Allergies Allergy/AdvReac Type Severity Reaction Status Date / Time amoxicillin [From Augmentin] Allergy Rash/Hives Verified 11/20/24 20:14 clavulanic acid Allergy Rash/Hives Verified 11/20/24 20:14 [From Augmentin] Physical Exam Vitals: Vital Signs Temp Pulse Resp BP Pulse Ox 11/21/24 08:27 97.9 F 76 18 136/76 94 L 11/21/24 08:00 95 11/21/24 05:26 98.7 F 59 L 16 147/72 100 11/21/24 03:25 67 16 145/67 98 11/21/24 02:12 61 16 146/67 96 11/21/24 00:00 81 16 139/77 96 11/20/24 22:56 73 16 111/71 97 11/20/24 19:35 112 H 18 117/79 95 11/20/24 18:32 99.5 F 113 H 20 148/75 86 L Intake and Output 11/20/24 11/21/24 11/21/24 22:59 06:59 14:59 Other: Weight 99.79 kg Results CBC & Chem 7: 11/21/24 07:30 11/21/24 07:30 Labs: Abnormal Lab Results - Last 24 Hours (Table) 11/20/24 11/20/24 11/20/24 Range/Units 18:54 18:54 18:54 WBC 13.2 H (3.8-10.6) k/uL RBC 3.69 L (4.30-5.90) m/uL Hgb 11.7 L (13.0-17.5) gm/dL Hct 32.9 L (39.0-53.0) % Plt Count 137 L (150-450) k/uL Lymphocytes # (1.0-4.8) k/uL Lymphocytes # (Manual) 5.02 H (1.0-4.8) k/uL Potassium 3.2 L (3.5-5.1) mmol/L Glucose 121 H (74-99) mg/dL POC Glucose (mg/dL) (70-110) mg/dL Total Bilirubin 1.5 H (0.2-1.3) mg/dL Alkaline Phosphatase 132 H (38-126) U/L Troponin I (0.000-0.034) ng/mL Total Protein 6.1 L (6.3-8.2) g/dL Urine Protein (Negative) Urine Glucose (UA) (Negative) Urine Blood (Negative) Urine RBC (0-5) /hpf Urine Opiates Screen Detected H (NotDetected) 11/20/24 11/20/24 11/20/24 Range/Units 18:54 18:55 19:31 WBC (3.8-10.6) k/uL RBC (4.30-5.90) m/uL Hgb (13.0-17.5) gm/dL Hct (39.0-53.0) % Plt Count (150-450) k/uL Lymphocytes # (1.0-4.8) k/uL Lymphocytes # (Manual) (1.0-4.8) k/uL Potassium (3.5-5.1) mmol/L Glucose (74-99) mg/dL POC Glucose (mg/dL) 124 H (70-110) mg/dL Total Bilirubin (0.2-1.3) mg/dL Alkaline Phosphatase (38-126) U/L Troponin I 0.043 H* (0.000-0.034) ng/mL Total Protein (6.3-8.2) g/dL Urine Protein 1+ H (Negative) Urine Glucose (UA) Trace H (Negative) Urine Blood Small H (Negative) Urine RBC 6 H (0-5) /hpf Urine Opiates Screen (NotDetected) 11/21/24 11/21/24 11/21/24 Range/Units 00:39 02:24 03:10 WBC (3.8-10.6) k/uL RBC (4.30-5.90) m/uL Hgb (13.0-17.5) gm/dL Hct (39.0-53.0) % Plt Count (150-450) k/uL Lymphocytes # (1.0-4.8) k/uL Lymphocytes # (Manual) (1.0-4.8) k/uL Potassium (3.5-5.1) mmol/L Glucose (74-99) mg/dL POC Glucose (mg/dL) 136 H (70-110) mg/dL Total Bilirubin (0.2-1.3) mg/dL Alkaline Phosphatase (38-126) U/L Troponin I 0.091 H* 0.078 H* (0.000-0.034) ng/mL Total Protein (6.3-8.2) g/dL Urine Protein (Negative) Urine Glucose (UA) (Negative) Urine Blood (Negative) Urine RBC (0-5) /hpf Urine Opiates Screen (NotDetected) 11/21/24 11/21/24 11/21/24 Range/Units 07:30 07:30 08:09 WBC 16.4 H (3.8-10.6) k/uL RBC 3.92 L (4.30-5.90) m/uL Hgb 12.4 L (13.0-17.5) gm/dL Hct 35.9 L (39.0-53.0) % Plt Count 136 L (150-450) k/uL Lymphocytes # 9.2 H (1.0-4.8) k/uL Lymphocytes # (Manual) (1.0-4.8) k/uL Potassium 3.4 L (3.5-5.1) mmol/L Glucose 136 H (74-99) mg/dL POC Glucose (mg/dL) 138 H (70-110) mg/dL Total Bilirubin 1.4 H (0.2-1.3) mg/dL Alkaline Phosphatase 130 H (38-126) U/L Troponin I (0.000-0.034) ng/mL Total Protein (6.3-8.2) g/dL Urine Protein (Negative) Urine Glucose (UA) (Negative) Urine Blood (Negative) Urine RBC (0-5) /hpf Urine Opiates Screen (NotDetected) Assessment and Plan (1) Non-pressure chronic ulcer of other part of right foot with fat layer exposed Current Visit: Yes Status: Acute Code(s): L97.512 - NON-PRS CHRONIC ULCER OTH PRT RIGHT FOOT W FAT LAYER EXPOSED SNOMED Code(s): 25949896360832482 (2) Type 2 diabetes mellitus with foot ulcer Current Visit: Yes Status: Acute Code(s): E11.621 - TYPE 2 DIABETES MELLITUS WITH FOOT ULCER; L97.509 - NON-PRESSURE CHRONIC ULCER OTH PRT UNSP FOOT W UNSP SEVERITY SNOMED Code(s): 8278042086087
--- NOTE | 2024-11-21 10:02 | US ---
EXAMINATION TYPE: US arterial LE single level DATE OF EXAM: 11/21/2024 9:56 AM COMPARISONS: None. CLINICAL INDICATION: Male, 79 years old with history of possible PAD; TECHNIQUE: Systolic pressures were taken of the upper and lower extremity arteries with ankle-brachia l indices and toe brachial indices calculated bilaterally. History of: Smoker: No Hypertension: Yes Diabetic: Yes Hyperlipidemia: Yes TIA/CVA: No Previous Vascular Surgery: No CAD: Yes ND: No Vascular Ulcers: Right Claudication: Yes Gangrene: No FINDINGS: Doppler Waveforms: Right: Multiphasic Left: Multiphasic Brachial Artery systolic pressure: Right: 133 Left: 133 Posterior Tibial artery systolic pressure: Right: CNO Left: CNO Dorsalis Pedis artery systolic pressure: Right: CNO Left: CNO Toe artery systolic pressure: Right: XX Left: XX Ankle-Brachial Indices: Right: CNO Left: CNO IMPRESSION: Noncompressible vessels ankle brachial indices unable to be obtained. [facility], , 11/21/2024 10:00 AM
[2024-11-21 13:01] LABS: Glucose,Whole Blood 209 mg/dL (70-110)
--- NOTE | 2024-11-21 13:31 | P.CRDCN ---
History of Present Illness Consult date: 11/21/24 Reason for Consult (text): Elevated troponin History of present illness: This is a 79-year-old male patient of Dr. Macdonald with past medical history of coronary artery disease, hypertension, dyslipidemia. We have been asked to evaluate the patient for elevated troponins. Patient was brought into the hospital by EMS due to confusion. He was found to be hypoxic in the low 80s. He was placed on oxygen and this improved his mental status. Patient states that his found that he was babbling and he also had a high fever at home. Patient denies chest pain, no shortness of breath. Blood pressure 147/72, heart rate 59, pulse ox 100% on 3 L nasal cannula. Patient is status post 500 cc bolus of IV fluids, potassium replacement and IV antibiotics. Patient is seen today in the emergency center waiting for bed on the cardiac stepdown unit. -EKG: Sinus tachycardia at 118 bpm, LVH. -Chest x-ray: No acute process. -CTA of the chest reveals no PE. Diffuse patchy groundglass pulmonary opacities suggest atypical pulmonary infection. Cholelithiasis. Fluid identified within the visualized esophagus. Correlate for GERD. -CT brain: No acute process. Chronic small vessel ischemic changes. -Laboratory studies: WBC 13.2, hemoglobin 11.7, platelet count 137. Potassium 3.2, sodium 137, BUN 15 creatinine 0.9. Troponin 0.043, 0.091 and 0.078. proBNP 631. Alkaline phosphatase 132 and total bilirubin 1.5. Urine drug screen positive for opiates. Serum alcohol less than 10. Cepheid viral panel negative. -Home cardiac medications: Atorvastatin 80 mg daily, lisinopril 20 mg twice daily. -Cardiac catheterization performed 07/27/2021 revealed 20% in the mid circumflex and 50% in the mid RCA. -Echocardiogram performed 01/24/2021 revealed normal EF. -Lexiscan Cardiolite stress test performed 07/27/2021 revealed small basal lateral reversible defect. Review Of Systems: At the time of my exam: CONSTITUTIONAL: Denies fever or chills. HEENT: Denies blurred vision, vision changes, or eye pain. Denies hemoptysis CARDIOVASCULAR: Denies chest pain. Denies orthopnea. Denies PND. Denies palpitations RESPIRATORY: Denies shortness of breath. GASTROINTESTINAL: Denies abdominal pain. Denies nausea or vomiting. HEMATOLOGIC: Denies bleeding disorders. GENITOURINARY: Denies any blood in urine. SKIN: Denies puritis. Denies rash. Physical examination: Gen: This is a 79-year-old male in no acute distress VS: reviewed HEENT: Head is atraumatic, normocephalic. Pupils equal, round. Sclerae is anicteric. NECK: Supple. No JVD. LUNGS: Diminished bilaterally. No intercostal retractions. HEART: Regular rate and rhythm. Systolic murmur. ABDOMEN: Soft No tenderness. EXTREMITIES: No pedal edema. No calf tenderness. NEUROLOGICAL: Patient is awake, alert and oriented x3. Assessment: Hypoxic metabolic encephalopathy, resolved NSTEMI type II secondary to pneumonia and sepsis Nonobstructive coronary artery disease on previous cardiac catheterization Hypertension Dyslipidemia Ulcer right foot, chronic Diabetes Plan: Resume patient's home cardiac medications Start patient on aspirin 81 mg daily Start patient on heparin drip for 48 hours Add metoprolol succinate 25 mg daily Obtain 2-D echocardiogram and Doppler study to assess cardiac structure and function Further recommendations to follow based upon clinical course Thank you kindly for this consultation. Nurse practitioner note has been reviewed, I agree with documented findings and plan of care. Patient was seen and examined. Past Medical History Past Medical History: Coronary Artery Disease (CAD), Cancer, Diabetes Mellitus, GERD/Reflux, Hypertension, Osteoarthritis (OA) Additional Past Medical History / Comment(s): NIDDM type II, 1999 LEUKEMIA (CLL- remission), sinus problems, seasonal allergies, tinnitis bilaterally, OA hands, R wrist carpal tunnel, past fx with L elbow, R rotator cuff tendon problems, L rotator cuff tear, left knee pain History of Any Multi-Drug Resistant Organisms: None Reported Past Surgical History: Heart Catheterization, Orthopedic Surgery Additional Past Surgical History / Comment(s): LEFT HAND thumb tendon repair. L knee surgery. Past Anesthesia/Blood Transfusion Reactions: No Reported Reaction Past Psychological History: No Psychological Hx Reported Smoking Status: Never smoker Past Alcohol Use History: None Reported Past Drug Use History: None Reported - Past Family History Father Family Medical History: CVA/TIA Additional Family Medical History / Comment(s): Father at the age of 85yrs. Mother Family Medical History: Diabetes Mellitus Additional Family Medical History / Comment(s): Mother at the age of 90yrs. Medications and Allergies Home Medications Medication Instructions Recorded Confirmed Type Montelukast Sodium [Singulair] 10 mg PO DAILY 05/25/17 11/20/24 History Fluticasone Nasal [place] [Flonase 2 spr EA NOSTRIL DAILY 01/24/21 11/20/24 Histor y Nasal [place]] Atorvastatin [Lipitor] 80 mg PO DAILY 03/08/21 11/20/24 History Omeprazole 40 mg PO DAILY 07/27/21 11/20/24 History Meclizine [Antivert] 25 mg PO TID 09/14/22 11/20/24 History ALPRAZolam [Xanax] 0.25 mg PO DAILY PRN 06/05/23 11/20/24 History HYDROcodone/APAP 5-325MG [[place] 1 tab PO Q6HR 06/05/23 11/20/24 History 5-325] Baclofen 10 - 20 mg PO DAILY 11/06/24 11/20/24 History Sucralfate [Carafate] 1 gm PO ACHS 11/06/24 11/20/24 History cefuroxime axetiL [Ceftin] 500 mg PO BID 11/06/24 11/20/24 History Insulin NPH Hum/Reg Insulin Hm 15 unit SQ HS 11/20/24 11/20/24 History [NovoLIN 70-30 100 Unit/ml Vial] Insulin NPH Hum/Reg Insulin Hm 25 unit SQ DAILY 11/20/24 11/20/24 History [NovoLIN 70-30 100 Unit/ml Vial] lisinopriL [Zestril] 20 mg PO BID 11/20/24 11/20/24 History Allergies Allergy/AdvReac Type Severity Reaction Status Date / Time amoxicillin [From Augmentin] Allergy Rash/Hives Verified 11/20/24 20:14 clavulanic acid Allergy Rash/Hives Verified 11/20/24 20:14 [From Augmentin] Physical Exam Vitals: Vital Signs Temp Pulse Resp BP Pulse Ox 11/21/24 05:26 98.7 F 59 L 16 147/72 100 11/21/24 03:25 67 16 145/67 98 11/21/24 02:12 61 16 146/67 96 11/21/24 00:00 81 16 139/77 96 11/20/24 22:56 73 16 111/71 97 11/20/24 19:35 112 H 18 117/79 95 11/20/24 18:32 99.5 F 113 H 20 148/75 86 L Intake and Output 11/20/24 11/21/24 11/21/24 22:59 06:59 14:59 Other: Weight 99.79 kg Results 11/21/24 07:30 11/21/24 07:30 Cardiac Enzymes 11/20/24 11/20/24 11/21/24 Range/Units 18:54 18:54 00:39 AST 35 (17-59) U/L Troponin I 0.043 H* 0.091 H* (0.000-0.034) ng/mL 11/21/24 Range/Units 03:10 AST (17-59) U/L Troponin I 0.078 H* (0.000-0.034) ng/mL Coagulation 11/20/24 Range/Units 18:54 PT 12.1 (10.0-12.5) sec APTT 22.4 (22.0-30.0) sec CBC 11/20/24 Range/Units 18:54 WBC 13.2 H (3.8-10.6) k/uL RBC 3.69 L (4.30-5.90) m/uL Hgb 11.7 L (13.0-17.5) gm/dL Hct 32.9 L (39.0-53.0) % Plt Count 137 L (150-450) k/uL Comprehensive Metabolic Panel 11/20/24 Range/Units 18:54 Sodium 137 (137-145) mmol/L Potassium 3.2 L (3.5-5.1) mmol/L Chloride 99 (98-107) mmol/L Carbon Dioxide 25 (22-30) mmol/L BUN 15 (9-20) mg/dL Creatinine 0.90 (0.66-1.25) mg/dL Glucose 121 H (74-99) mg/dL Calcium 8.9 (8.4-10.2) mg/dL AST 35 (17-59) U/L ALT 21 (4-49) U/L Alkaline Phosphatase 132 H (38-126) U/L Total Protein 6.1 L (6.3-8.2) g/dL Albumin 3.8 (3.5-5.0) g/dL Current Medications Generic Name Dose Route Start Last Admin Trade Name Freq PRN Reason Stop Dose Admin Hydrocodone Bitart/Acetaminophen 1 each 11/21/24 08:00 Hydrocodone/Apap 5-325mg 1 Each Tab PO Q6H RAJWINDER Albuterol/Ipratropium 3 ml 11/20/24 22:10 Ipratropium-Albuterol 3 Ml Neb INHALATION RT-Q4H PRN shortness of breath Alprazolam 0.25 mg 11/21/24 02:07 Alprazolam 0.25 Mg Tab PO DAILY PRN Anxiety Atorvastatin Calcium 80 mg 11/21/24 09:00 Atorvastatin 80 Mg Tab PO DAILY RAJWINDER Azithromycin 500 mg 11/21/24 09:00 Azithromycin 500 Mg Tab PO 11/22/24 09:01 DAILY RAJWINDER Protocol Dextrose/Water 25 ml 11/21/24 02:01 Dextrose 50% Syringe 50 Ml IVP PER PROTOCOL PRN Hypoglycemia Protocol Dextrose/Water 50 ml 11/21/24 02:01 Dextrose 50% Syringe 50 Ml IVP PER PROTOCOL PRN Hypoglycemia Protocol Enoxaparin Sodium 40 mg 11/21/24 09:00 Enoxaparin 40 Mg/0.4 Ml Syringe SQ DAILY RAJWINDER Ceftriaxone Sodium 2 gm/ 50 mls @ 100 mls/hr 11/21/24 21:00 Sodium Chloride IVPB 11/24/24 21:29 Q24H [facility] Protocol Sodium Chloride 1,000 mls @ 130 mls/hr 11/21/24 03:00 11/21/24 03:22 Saline 0.9% IV 130 mls/hr .[id number] RAJWINDER Administration Insulin Aspart 0 unit 11/21/24 07:30 Insulin Aspart (Novolog) 100 Unit/Ml Vial SQ ACHS [facility] Protocol Lisinopril 20 mg 11/21/24 09:00 Lisinopril 20 Mg Tab PO BID [facility] Miscellaneous Information 1 each 11/20/24 21:33 Pneumonia Protocol Utilized 1 Each Misc PO ONCE PRN Per Protocol Montelukast Sodium 10 mg 11/21/24 09:00 Montelukast 10 Mg Tab PO DAILY [facility] Pantoprazole Sodium 40 mg 11/21/24 09:00 Pantoprazole 40 Mg Tablet PO DAILY [facility] Intake and Output 11/20/24 11/21/24 11/21/24 22:59 06:59 14:59 Other: Weight 99.79 kg 11/20/24 18:54 11/20/24 18:54
[2024-11-21 13:45] LABS: Glucose,Whole Blood 191 mg/dL (70-110)
[2024-11-21 17:51] LABS: Glucose,Whole Blood 229 mg/dL (70-110)
[2024-11-21 20:13] LABS: Glucose,Whole Blood 214 mg/dL (70-110)
[2024-11-21 20:21] LABS: ABG Base Excess 1.8 mmol/L; ABG HCO3 27 mmol/L (21-25); ABG Oxygen Saturation 91.5 % (94-97); ABG PCO2 42 mmHg (35-45); ABG PH 7.41 (7.35-7.45); ABG PO2 62 mmHg (83-108); ABG TCO2 28 mmol/L (19-24); Allen Test Performed? Yes
[2024-11-21] MEDS: FUROSEMIDE 10 MG/ML 10 ML VIAL IV STA (20:30)
[2024-11-21] MEDS: ALPRAZolam 0.25 MG TAB PO PRN (20:36)
--- NOTE | 2024-11-21 20:45 | XR ---
EXAMINATION TYPE: XR chest 1V portable DATE OF EXAM: 11/21/2024 8:21 PM COMPARISON: None. CLINICAL INDICATION: Male, 79 years old with history of Interval change, hypoxia, TECHNIQUE: XR chest 1V portable view(s) obtained. FINDINGS: The heart size is normal. The pulmonary vasculature is normal. There is worsening of the bilateral perihilar infiltrates more so on the left. IMPRESSION: 1. Worsening perihilar infiltrates more noticeably on the left. Pneumonia and pulmonary edema could b e considered. [facility], , 11/21/2024 8:42 PM
[2024-11-21 21:03] LABS: Influenza A Not Detected (Not Detectd); Influenza B Not Detected (Not Detectd); RSV Not Detected (Not Detectd)
[2024-11-21] MEDS ORDERED: VANCOMYCIN IV PER PHARMACY 1 EACH MISC MISCELLANE PRN (22:59)
[2024-11-22] MEDS: CEFEPIME 2 GM in SODIUM CHLORIDE 0.9% 100 ML IVPB SCH (00:06)
[2024-11-22] MEDS: VANCOMYCIN 1,500 MG in SODIUM CHLORIDE 0.9% 500 ML 500 ML IVPB SCH ×2 (00:32→12:42)
[2024-11-22 06:00] LABS: Glucose,Whole Blood 203 mg/dL (70-110)
[2024-11-22 07:17] LABS: Basophils # (A) 0.1 k/uL (0-0.2); Basophils % (A) 1 %; Eosinophils # (A) 0.1 k/uL (0-0.7); Eosinophils % (A) 1 %; HCT 35.5 % (39.0-53.0); HGB 11.9 gm/dL (13.0-17.5); Lymphocytes # (A) 8.8 k/uL (1.0-4.8); Lymphocytes % (A) 52 %; MCHC 33.6 g/dL (31.0-37.0); MCV 92.5 fL (80.0-100.0); Mean Platelet Volume 7.9; Monocytes # (A) 0.7 k/uL (0-1.0); Monocytes % (A) 4 %; Neutrophils # (A) 6.7 k/uL (1.3-7.7); Neutrophils % (A) 40 %; Platelet Count 155 k/uL (150-450); RBC 3.83 m/uL (4.30-5.90); WBC 16.9 k/uL (3.8-10.6)
[2024-11-22 07:20] LABS: INR 1.2 (<1.2); Prothrombin Time 12.4 sec (10.0-12.5)
[2024-11-22] MEDS: IPRATROPIUM-ALBUTEROL 3 ML NEB INHALATION PRN (08:09)
--- NOTE | 2024-11-22 08:42 | XR ---
EXAMINATION TYPE: XR chest 1V portable DATE OF EXAM: 11/22/2024 8:37 AM COMPARISON: Chest radiograph from one day prior. CLINICAL INDICATION: Male, 79 years old with history of hypoxia; [facility] TECHNIQUE: XR chest 1V portable Frontal view of the chest. FINDINGS: Lungs/Pleura: Improved aeration of lungs on today's exam with persistent airspace opacities scattered throughout the lungs. No evidence of pneumothorax or large pleural effusion. Pulmonary vascularity: Unremarkable. Heart/mediastinum: Cardiomediastinal silhouette is unremarkable. Musculoskeletal: No acute osseous pathology. IMPRESSION: Improved aeration of the lungs with persistent multifocal airspace opacities. [facility], , 11/22/2024 8:40 AM
[2024-11-22 08:53] LABS: ALT 25 U/L (4-49); AST 62 U/L (17-59); African American GFR (CKD) 78 (>60 ml/min/1.73 sqM); Albumin 3.5 g/dL (3.5-5.0); Alkaline Phosphatase 114 U/L (38-126); Anion Gap 10 mmol/L; Blood Urea Nitrogen 19 mg/dL (9-20); Calcium 8.4 mg/dL (8.4-10.2); Carbon Dioxide 30 mmol/L (22-30); Chloride 95 mmol/L (98-107); Glucose 165 mg/dL (74-99); Magnesium 1.8 mg/dL (1.6-2.3); Non-African American GFR(CKD) 68 (>60 ml/min/1.73 sqM); Potassium 3.3 mmol/L (3.5-5.1); Sodium 135 mmol/L (137-145); Total Bilirubin 1.6 mg/dL (0.2-1.3); Total Protein 5.8 g/dL (6.3-8.2)
[2024-11-22 11:08] LABS: Glucose,Whole Blood 296 mg/dL (70-110)
--- NOTE | 2024-11-22 13:44 | P.CNPUL ---
History of Present Illness Consult date: 11/22/24 Requesting physician: Carmen Gardner Reason for consult: dyspnea, chest pain, hypoxemia, abnormal CXR/CT Chief complaint: Shortness of breath. History of present illness: Pulmonary consult dated November 22, 2024. 79-year-old male who presented to the emergency department, on November 20, complaining of nausea, vomiting, diarrhea, and mental status changes. The patient was brought into the emergency department, by EMS, and apparently he was quite confused, and disoriented, when they initially evaluated him. He apparently was having GI episodes, including vomiting, nausea, and diarrhea. He denies having any chest pain or shortness of breath although his saturations were in the low 80s. He was placed on oxygen therapy, and brought into the hospital. When he was in the ER, he was apparently alert and oriented x 3. He was feeling a bit short of breath. We were consulted today, because the patient's respiratory status has declined, and he is currently on Airvo, with settings of 60 L/min, and an FiO2 of 75%. The patient was thought to have a non-ST segment elevation myocardial infarction, and pneumonia. He was on IV heparin, and saline at 20 cc an hour, as well as vancomycin, and cefepime. His procalcitonin level was 0.21. Current laboratory data includes a white count of 16.9, hemoglobin 11.9, hematocrit 35.5, and a platelet count of 155,000. A blood gas done yesterday shows a pO2 of 62, pCO2 42, and a pH of 7.41. This apparently was on 100% oxygen. Sodium 135, potassium 3.3, chloride 95, CO2 30, anion gap 10, BUN 19, creatinine 1.06. Glucose 296. Hemoglobin A1c was 6.9. Albumin was 3.5. N-terminal proBNP was 2750. Blood cultures were negative. Chest x-ray showed bilateral multifocal airspace opacities, which have improved. Review of Systems REVIEW OF SYSTEMS: CONSTITUTIONAL: Acute mental status changes. NEUROLOGIC: [ Negative.] HEENT: [ Negative.] CARDIAC: [Negative.] PULMONARY: Shortness of breath. GI: Nausea, vomiting, and diarrhea. : [Negative.] RHEUMATOLOGIC: [ Negative.] IMMUNOLOGIC: [ Negative.] ENDOCRINE: [Negative. ] DERMATOLOGIC: [Negative.] Past Medical History Past Medical History: Coronary Artery Disease (CAD), Cancer, Diabetes Mellitus, GERD/Reflux, Hypertension, Osteoarthritis (OA) Additional Past Medical History / Comment(s): NIDDM type II, 1998 LEUKEMIA (CLL- remission), sinus problems, seasonal allergies, tinnitis bilaterally, OA hands, R wrist carpal tunnel, past fx with L elbow, R rotator cuff tendon problems, L rotator cuff tear, left knee pain History of Any Multi-Drug Resistant Organisms: None Reported Past Surgical History: Heart Catheterization, Orthopedic Surgery Additional Past Surgical History / Comment(s): LEFT HAND thumb tendon repair. L knee surgery. Past Anesthesia/Blood Transfusion Reactions: No Reported Reaction Past Psychological History: No Psychological Hx Reported Smoking Status: Never smoker Past Alcohol Use History: None Reported Past Drug Use History: None Reported - Past Family History Father Family Medical History: CVA/TIA Additional Family Medical History / Comment(s): Father at the age of 85yrs. Mother Family Medical History: Diabetes Mellitus Additional Family Medical History / Comment(s): Mother at the age of 90yrs. Medications and Allergies Home Medications Medication Instructions Recorded Confirmed Type Montelukast Sodium [Singulair] 10 mg PO DAILY 05/25/17 11/20/24 History Fluticasone Nasal [place] [Flonase 2 spr EA NOSTRIL DAILY 01/24/21 11/20/24 History Nasal [place]] Atorvastatin [Lipitor] 80 mg PO DAILY 03/08/21 11/20/24 History Omeprazole 40 mg PO DAILY 07/27/21 11/20/24 History Meclizine [Antivert] 25 mg PO TID 09/14/22 11/20/24 History ALPRAZolam [Xanax] 0.25 mg PO DAILY PRN 06/05/23 11/20/24 History HYDROcodone/APAP 5-325MG [[place] 1 tab PO Q6HR 06/05/23 11/20/24 History 5-325] Baclofen 10 - 20 mg PO DAILY 11/06/24 11/20/24 History Sucralfate [Carafate] 1 gm PO ACHS 11/06/24 11/20/24 History cefuroxime axetiL [Ceftin] 500 mg PO BID 11/06/24 11/20/24 History Insulin NPH Hum/Reg Insulin Hm 15 unit SQ HS 11/20/24 11/20/24 History [NovoLIN 70-30 100 Unit/ml Vial] Insulin NPH Hum/Reg Insulin Hm 25 unit SQ DAILY 11/20/24 11/20/24 History [NovoLIN 70-30 100 Unit/ml Vial] lisinopriL [Zestril] 20 mg PO BID 11/20/24 11/20/24 History Allergies Allergy/AdvReac Type Severity Reaction Status Date / Time amoxicillin [From Augmentin] Allergy Rash/Hives Verified 11/20/24 20:14 clavulanic acid Allergy Rash/Hives Verified 11/20/24 20:14 [From Augmentin] Physical Exam Osteopathic Statement: *. No significant issues noted on an osteopathic structural exam other than those noted in the History and Physical/Consult. Vitals: Vital Signs Temp Pulse Pulse Resp BP BP Pulse Ox 11/22/24 12:00 99.1 F 61 131/64 98 11/22/24 11:32 97 11/22/24 08:13 11/22/24 08:00 100.3 F H 81 24 134/68 100 11/22/24 03:51 98 11/22/24 03:18 99 F 80 24 146/69 95 11/22/24 00:35 100 F H 71 24 99 11/21/24 23:56 99 11/21/24 22:58 101.9 F H 11/21/24 22:24 102.8 F H 100 24 170/80 99 11/21/24 20:41 95 11/21/24 20:04 24 96 11/21/24 19:49 24 92 L 11/21/24 19:40 98.3 F 28 H 191/70 75 L 11/21/24 17:55 70 16 172/74 92 L 11/21/24 16:55 99.2 F 71 11/21/24 16:54 65 18 156/70 94 L 11/21/24 15:48 73 18 96 11/21/24 14:50 84 18 165/75 98 11/21/24 14:39 104 H 18 144/95 94 L FiO2 11/22/24 12:00 65 11/22/24 11:32 70 11/22/24 08:13 70 11/22/24 08:00 72 11/22/24 03:51 75 11/22/24 03:18 78 11/22/24 00:35 85 11/21/24 23:56 80 11/21/24 22:58 11/21/24 22:24 85 11/21/24 20:41 85 11/21/24 20:04 11/21/24 19:49 11/21/24 19:40 11/21/24 17:55 11/21/24 16:55 11/21/24 16:54 11/21/24 15:48 11/21/24 14:50 11/21/24 14:39 Intake and Output 11/21/24 11/22/24 11/22/24 22:59 06:59 14:59 Intake Total 590 Output Total 2200 500 Balance -2200 -500 590 Intake: Intake, IV Titration 250 Amount Heparin Sod,Pork in 0.45% 250 NaCl 25,000 unit In 0.45 % NaCl 1 250ml.bag @ 10. 021 UNITS/KG/HR 10 mls/hr IV .Q24H [facility] Rx#: [id number] Oral 340 Output: Urine 2200 500 Other: Voiding Method Indwelling Catheter Indwelling Catheter Indwelling Catheter Weight 99.79 kg 131.5 kg No acute distress, oriented 3. The patient is currently on Airvo. Settings are 60 L/min with an FiO2 of 75%. The patient is able to speak in full se ntences without difficulty. HEENT examination is grossly unremarkable. Mucous membranes are moist. No oral lesions. Neck supple. Full range of motion. No adenopathy thyromegaly or neck vein dist ention. Cardiovascular examination reveals regular rhythm rate. S1-S2 normal. No S3 or S4. No discernible murmur noted. Heart sounds are distant. Lungs reveal mild scattered rhonchi. No wheezes. No crackles. Breath sounds equal bilaterally. Abdomen soft bowel sounds are heard. No masses or tenderness. Extremities are intact. No cyanosis clubbing or edema. Skin is without rash or lesion. Neurologic examination is brief but nonfocal. Results - Laboratory Findings CBC and BMP: 11/22/24 06:52 11/22/24 06:52 ABG ABG pH 7.41 (7.35-7.45) 11/21/24 20:02 ABG pCO2 42 mmHg (35-45) 11/21/24 20:02 ABG pO2 62 mmHg (83-108) L 11/21/24 20:02 ABG O2 Saturation 91.5 % (94-97) L 11/21/24 20:02 PT/INR, D-dimer PT 12.4 sec (10.0-12.5) 11/22/24 06:52 INR 1.2 (<1.2) H 11/22/24 06:52 Abnormal lab findings: Abnormal Labs 11/20/24 11/20/24 11/20/24 18:54 18:54 18:54 WBC 13.2 H RBC 3.69 L Hgb 11.7 L Hct 32.9 L Plt Count 137 L Lymphocytes # Lymphocytes # (Manual) 5.02 H INR APTT ABG pO2 ABG HCO3 ABG Total CO2 ABG O2 Saturation Hemoglobin Sodium Potassium 3.2 L Chloride Glucose 121 H POC Glucose (mg/dL) Hemoglobin A1c Total Bilirubin 1.5 H AST Alkaline Phosphatase 132 H Troponin I Total Protein 6.1 L Urine Protein Urine Glucose (UA) Urine Blood Urine RBC Urine Opiates Screen Detected H 11/20/24 11/20/24 11/20/24 18:54 18:55 19:31 WBC RBC Hgb Hct Plt Count Lymphocytes # Lymphocytes # (Manual) INR APTT ABG pO2 ABG HCO3 ABG Total CO2 ABG O2 Saturation Hemoglobin Sodium Potassium Chloride Glucose POC Glucose (mg/dL) 124 H Hemoglobin A1c Total Bilirubin AST Alkaline Phosphatase Troponin I 0.043 H* Total Protein Urine Protein 1+ H Urine Glucose (UA) Trace H Urine Blood Small H Urine RBC 6 H Urine Opiates Screen 11/21/24 11/21/24 11/21/24 00:39 02:24 03:10 WBC RBC Hgb Hct Plt Count Lymphocytes # Lymphocytes # (Manual) INR APTT ABG pO2 ABG HCO3 ABG Total CO2 ABG O2 Saturation Hemoglobin Sodium Potassium Chloride Glucose POC Glucose (mg/dL) 136 H Hemoglobin A1c Total Bilirubin AST Alkaline Phosphatase Troponin I 0.091 H* 0.078 H* Total Protein Urine Protein Urine Glucose (UA) Urine Blood Urine RBC Urine Opiates Screen 11/21/24 11/21/24 11/21/24 07:30 07:30 08:09 WBC 16.4 H RBC 3.92 L Hgb 12.4 L Hct 35.9 L Plt Count 136 L Lymphocytes # 9.2 H Lymphocytes # (Manual) INR APTT ABG pO2 ABG HCO3 ABG Total CO2 ABG O2 Saturation Hemoglobin Sodium Potassium 3.4 L Chloride Glucose 136 H POC Glucose (mg/dL) 138 H Hemoglobin A1c Total Bilirubin 1.4 H AST Alkaline Phosphatase 130 H Troponin I Total Protein Urine Protein Urine Glucose (UA) Urine Blood Urine RBC Urine Opiates Screen 11/21/24 11/21/24 11/21/24 12:59 13:45 15:11 WBC RBC Hgb Hct Plt Count Lymphocytes # Lymphocytes # (Manual) INR APTT 49.5 H ABG pO2 ABG HCO3 ABG Total CO2 ABG O2 Saturation Hemoglobin Sodium Potassium Chloride Glucose POC Glucose (mg/dL) 209 H 191 H Hemoglobin A1c Total Bilirubin AST Alkaline Phosphatase Troponin I Total Protein Urine Protein Urine Glucose (UA) Urine Blood Urine RBC Urine Opiates Screen 11/21/24 11/21/24 11/21/24 17:49 20:02 20:11 WBC RBC Hgb Hct Plt Count Lymphocytes # Lymphocytes # (Manual) INR APTT ABG pO2 62 L ABG HCO3 27 H ABG Total CO2 28 H ABG O2 Saturation 91.5 L Hemoglobin 11.6 L Sodium Potassium Chloride Glucose POC Glucose (mg/dL) 229 H 214 H Hemoglobin A1c Total Bilirubin AST Alkaline Phosphatase Troponin I Total Protein Urine Protein Urine Glucose (UA) Urine Blood Urine RBC Urine Opiates Screen 11/22/24 11/22/24 11/22/24 05:58 06:52 06:52 WBC 16.9 H RBC 3.83 L Hgb 11.9 L Hct 35.5 L Plt Count Lymphocytes # 8.8 H Lymphocytes # (Manual) INR APTT ABG pO2 ABG HCO3 ABG Total CO2 ABG O2 Saturation Hemoglobin Sodium Potassium Chloride Glucose POC Glucose (mg/dL) 203 H Hemoglobin A1c 6.9 H Total Bilirubin AST Alkaline Phosphatase Troponin I Total Protein Urine Protein Urine Glucose (UA) Urine Blood Urine RBC Urine Opiates Screen 11/22/24 11/22/24 11/22/24 06:52 06:52 11:06 WBC RBC Hgb Hct Plt Count Lymphocytes # Lymphocytes # (Manual) INR 1.2 H APTT ABG pO2 ABG HCO3 ABG Total CO2 ABG O2 Saturation Hemoglobin Sodium 135 L Potassium 3.3 L Chloride 95 L Glucose 165 H POC Glucose (mg/dL) 296 H Hemoglobin A1c Total Bilirubin 1.6 H AST 62 H Alkaline Phosphatase Troponin I Total Protein 5.8 L Urine Protein Urine Glucose (UA) Urine Blood Urine RBC Urine Opiates Screen - Diagnostic Findings Chest x-ray: image reviewed CT scan - chest: image reviewed Assessment and Plan Assessment: Acute hypoxemic respiratory failure, likely on the basis of pneumonia versus fluid overload. Non-ST segment elevation myocardial infarction. History of coronary artery disease. History of diabetes mellitus. History of hypertension. History of gastroesophageal reflux disease. History of chronic lymphocytic leukemia, in remission. History of osteoarthritis. Plan: Plan dated November 22, 2024. The patient is seen today in room 369. We are asked to see this patient, for worsening respiratory status. The patient is currently on Airvo, 60 L/min, with an FiO2 of 75%. He is receiving IV heparin, for presumed non-ST segment elevation myocardial infarction. The patient continues on vancomycin and cefepime for possible pneumonia. He was admitted on November 20. His procalcitonin level was normal at 0.21. The patient is getting 0.9 at 20 cc an hour. Labs, x-rays, and all medications are reviewed. We will continue to follow the patient, make recommendations where appropriate. 55 minutes was spent with this patient, including taking his history, examining the patient, reviewing pertinent laboratory data, x-rays, and medications, as well as discussing the diagnosis, treatment, prognosis, with the patient, the patient's nurse. We also spoke to the primary service, about this patient. We will continue to follow. Dictation was produced using [employer] software. Please excuse any grammatical, word or spelling errors. Time with Patient: Greater than 30
--- NOTE | 2024-11-22 14:19 | CA ---
Transthoracic Echo Report Name: Dung Marquez Age: 79 Gender: M : 1945 Exam Date: 11/21/2024 10:03 Exam Location: [facility] [facility] Ht (in): 72 Wt (lb): 220 Ordering Physician: Jocelyn Serrano Attending/Referring Phys: [id number], Maggie Agent Spa Desk Katharine Martin RDCS Procedure CPT: Indications: nstemi Cardiac Hx: Technical Quality: Technically difficult study Contrast 1: Total Dose (mL): Contrast 2: Total Dose (mL): MEASUREMENTS (Male / Female) Normal Values 2D ECHO LV Diastolic Diameter PLAX 6.0 cm 4.2 - 5.9 / 3.9 - 5.3 cm LV Systolic Diameter PLAX 4.2 cm IVS Diastolic Thickness 1.3 cm 0.6 - 1.0 / 0.6 - 0.9 cm LVPW Diastolic Thickness 1.4 cm 0.6 - 1.0 / 0.6 - 0.9 cm LV Relative Wall Thickness 0.4 RV Internal Dim ED PLAX 3.1 cm LA Systolic Diameter LX 3.6 cm 3.0 - 4.0 / 2.7 - 3.8 cm LV Diastolic Volume MOD BP 127.3 cm??? 67 - 155 / 56 - 104 cm??? LV Systolic Volume MOD BP 48.7 cm??? 22 - 58 / 19 - 49 cm??? LV Ejection Fraction MOD BP 61.7 % >= 55 % LV Cardiac Index MOD BP 2764.7 cm???/min???m??? LV Diastolic Volume MOD 4C 139.9 cm??? LV Systolic Volume MOD 4C 57.7 cm??? LV Ejection Fraction MOD 4C 58.7 % LV Cardiac Index MOD 4C 2890.3 cm???/min???m??? LV Diastolic Length 4C 8.6 cm LV Systolic Length 4C 6.9 cm LV Diastolic Volume MOD 2C 104.5 cm??? LV Systolic Volume MOD 2C 38.6 cm??? LV Ejection Fraction MOD 2C 63.1 % LV Cardiac Index MOD 2C 2318.5 cm???/min???m??? LV Diastolic Length 2C 7.7 cm LV Systolic Length 2C 6.5 cm M-MODE Aortic Root Diameter MM 3.8 cm DOPPLER MV Area PHT 3.3 cm??? Mitral E Point Velocity 62.4 cm/s Mitral A Point Velocity 98.3 cm/s Mitral E to A Ratio 0.6 MV Deceleration Time 232.7 ms TR Peak Velocity 256.7 cm/s TR Peak Gradient 26.4 mmHg Right Ventricular Systolic Press 31.4 mmHg FINDINGS Left Ventricle Left ventricular ejection fraction is estimated at 50-55 %. Mildly increased septal wall thickness. Mildly increased left ventricular diastolic diameter. Inferolateral wall hypokinesia Right Ventricle Normal right ventricular size. Right ventricular systolic pressure within normal limits. Right Atrium Normal right atrial size. No right atrial thrombus or mass seen. Left Atrium Left atrium not well visualized. Mitral Valve Structurally normal mitral valve. No mitral stenosis, regurgitation or prolapse. Aortic Valve Trileaflet aortic valve. Aortic valve sclerosis. Trace to mild aortic regurgitation. Tricuspid Valve Structurally normal tricuspid valve. Mild tricuspid regurgitation. Pulmonic Valve Structurally normal pulmonic valve. Trace pulmonic regurgitation. Pericardium No pericardial effusion. Aorta Mild aortic dilatation at the level of the sinuses of valsalva 38 mm CONCLUSIONS LVEF 55% Inferolateral wall hypokinesia No significant valvular dysfunction Normal RV size and systolic function Previewed by: Dr Wu Rodriguez (Electronically Signed) Final Date: 22 November 2024 14:18
--- NOTE | 2024-11-22 14:33 | P.PN ---
Subjective Progress Note Date: 11/22/24 Hospital Course: 79-year-old male with past medical history significant for coronary artery dis ease, insulin-dependent diabetes mellitus, hypertension presents to the emergency department today due to altered mental status. Initial vitals: BP 148/75, UT 113 bpm, T 99.5 F, RR 20, O2 saturation 86% on room air Initial labs: WBCs 13.2, RBC 3.69, hemoglobin 11.7, hematocrit 32.9, platelets 137, sodium 137, potassium 3.2, chloride 99, CO2 25, BUN 15, creatinine 0.9, total bilirubin 1.5, alkaline phosphatase 132, troponin x 2 0.043 and 0.091, total protein 6.1; urinalysis 1+ protein, trace glucose Initial EKG: Sinus tachycardia with ventricular rate of 118 bpm, QTc 384 ms, left axis deviation, left ventricular hypertrophy Initial chest x-ray: No acute cardiopulmonary disease/process Initial CTA chest: No evidence of pulmonary embolism, diffuse patchy groundglass pulmonary opacities suggestive of atypical pulmonary infection, cholelithiasis, fluid identified within the visualized esophagus Initial brain CT: No acute intracranial process; age-related atrophy with nonspecific white matter changes, likely secondary to chronic small vessel ischemic changes Arterial Dopplers of lower extremity showed noncompressible vessels KENNEDY unable to be obtained. No concern for ischemic. Troponin continue to worsen. Cardiology following. Started patient on heparin drip. Echocardiogram showed LVEF 55%. Respiratory function continue to worsen. Antibiotics were broadened. Pulmonology also consulted. On Airvo. Subjective: Seen and examined at bedside. Overnight, patient was more hypoxic, antibiotics were broadened. Now requiring Airvo. Pertinent positives and negatives as discussed above, a complete review of systems was performed and all other systems are negative. Vitals Signs Reviewed. General: Nontoxic, no distress, appears at stated age, tired appearing Derm: Warm, dry Head: Atraumatic, normocephalic, symmetric Eyes: EOMI, no lid lag, anicteric sclera Mouth: No lip lesion, mucus membranes moist Cardiovascular: S1S2 reg, no murmur Lungs: Bilateral rales, no accessory muscle use, supplemental oxygen Abdominal: Soft, nontender to palpation, no guarding, no appreciable organomegaly Ext: No gross muscle atrophy, no edema, no contractures Neuro: CN II-XI grossly intact, no focal neuro deficits Psych: Alert, oriented, appropriate affect Data Reviewed Today: Pertinent Labs: WBC 16.9, hemoglobin 11.9, sodium 135, potassium 3. 3, creatinine 1.06, blood sugars range between 2-3 2-96, A1c 6.8, proBNP 2700, procalcitonin 0.21. Imaging: Chest x-ray independently interpreted, bilateral interstitial opacities worsened from yesterday Assessment and Plan: Active: Acute hypoxic respiratory failure Multifocal pneumonia Acute NSTEMI -Continue to wean oxygen, patient currently on Airvo -On IV cefepime 2 g every 8 hours, IV vancomycin 1500 mg every 12 hours, monitor for renal toxicity -Was given 80 mg IV Lasix overnight -Pulmonology consulted, discussed plan -Patient continued on heparin drip, monitor APTT, monitor for bleeding -Continue aspirin 81 mg, atorvastatin 80 mg Diabetes Hyperglycemia -Start Levemir 10 units nightly, continue sliding scale insulin, monitor for hypoglycemia Hypokalemia -20 mill equivalents of oral potassium given today Right plantar foot ulcer -Wound care following Hyperbilirubinemia -Normal right upper quadrant pain Chronic: Hypertension History of CAD History of CLL, in remission DVT ppx: Heparin drip Code status: Full code Anticipated discharge place: Pending clinical course Anticipated discharge time: Pending clinical course Objective - Vital Signs Vital signs: Vital Signs Temp 99.1 F 11/22/24 12:00 Pulse 61 11/22/24 13:53 Resp 20 11/22/24 13:53 BP 131/64 11/22/24 12:00 Pulse Ox 98 11/22/24 12:00 FiO2 65 11/22/24 12:00 Intake & Output 11/21/24 11/22/24 11/22/24 18:59 06:59 18:59 Intake Total 770 Output Total 1250 2700 Balance -1250 -2700 770 Weight 99.79 kg 131.5 kg Intake: Intake, IV Titration 250 Amount Heparin Sod,Pork in 0.45% 250 NaCl 25,000 unit In 0.45 % NaCl 1 250ml.bag @ 10. 021 UNITS/KG/HR 10 mls/hr IV .Q24H [facility] Rx#: [id number] Oral 520 Output: Urine 1250 2700 Uretheral (Lucas) 300 Other: Voiding Method Indwelling Catheter Indwelling Catheter # Voids 5 - Labs CBC & Chem 7: 11/22/24 06:52 11/22/24 06:52 Labs: Abnormal Lab Results - Last 24 Hours (Table) 11/21/24 11/21/24 11/21/24 Range/Units 15:11 17:49 20:02 WBC (3.8-10.6) k/uL RBC (4.30-5.90) m/uL Hgb (13.0-17.5) gm/dL Hct (39.0-53.0) % Lymphocytes # (1.0-4.8) k/uL INR (<1.2) APTT 49.5 H (22.0-30.0) sec ABG pO2 62 L (83-108) mmHg ABG HCO3 27 H (21-25) mmol/L ABG Total CO2 28 H (19-24) mmol/L ABG O2 Saturation 91.5 L (94-97) % Hemoglobin 11.6 L (13.0-17.5) gm/dL Sodium (137-145) mmol/L Potassium (3.5-5.1) mmol/L Chloride (98-107) mmol/L Glucose (74-99) mg/dL POC Glucose (mg/dL) 229 H (70-110) mg/dL Hemoglobin A1c (<=6.0) % Total Bilirubin (0.2-1.3) mg/dL AST (17-59) U/L Total Protein (6.3-8.2) g/dL 11/21/24 11/22/24 11/22/24 Range/Units 20:11 05:58 06:52 WBC (3.8-10.6) k/uL RBC (4.30-5.90) m/uL Hgb (13.0-17.5) gm/dL Hct (39.0-53.0) % Lymphocytes # (1.0-4.8) k/uL INR (<1.2) APTT (22.0-30.0) sec ABG pO2 (83-108) mmHg ABG HCO3 (21-25) mmol/L ABG Total CO2 (19-24) mmol/L ABG O2 Saturation (94-97) % Hemoglobin (13.0-17.5) gm/dL Sodium (137-145) mmol/L Potassium (3.5-5.1) mmol/L Chloride (98-107) mmol/L Glucose (74-99) mg/dL POC Glucose (mg/dL) 214 H 203 H (70-110) mg/dL Hemoglobin A1c 6.9 H (<=6.0) % Total Bilirubin (0.2-1.3) mg/dL AST (17-59) U/L Total Protein (6.3-8.2) g/dL 11/22/24 11/22/24 11/22/24 Range/Units 06:52 06:52 06:52 WBC 16.9 H (3.8-10.6) k/uL RBC 3.83 L (4.30-5.90) m/uL Hgb 11.9 L (13.0-17.5) gm/dL Hct 35.5 L (39.0-53.0) % Lymphocytes # 8.8 H (1.0-4.8) k/uL INR 1.2 H (<1.2) APTT (22.0-30.0) sec ABG pO2 (83-108) mmHg ABG HCO3 (21-25) mmol/L ABG Total CO2 (19-24) mmol/L ABG O2 Saturation (94-97) % Hemoglobin (13.0-17.5) gm/dL Sodium 135 L (137-145) mmol/L Potassium 3.3 L (3.5-5.1) mmol/L Chloride 95 L (98-107) mmol/L Glucose 165 H (74-99) mg/dL POC Glucose (mg/dL) (70-110) mg/dL Hemoglobin A1c (<=6.0) % Total Bilirubin 1.6 H (0.2-1.3) mg/dL AST 62 H (17-59) U/L Total Protein 5.8 L (6.3-8.2) g/dL 11/22/24 Range/Units 11:06 WBC (3.8-10.6) k/uL RBC (4.30-5.90) m/uL Hgb (13.0-17.5) gm/dL Hct (39.0-53.0) % Lymphocytes # (1.0-4.8) k/uL INR (<1.2) APTT (22.0-30.0) sec ABG pO2 (83-108) mmHg ABG HCO3 (21-25) mmol/L ABG Total CO2 (19-24) mmol/L ABG O2 Saturation (94-97) % Hemoglobin (13.0-17.5) gm/dL Sodium (137-145) mmol/L Potassium (3.5-5.1) mmol/L Chloride (98-107) mmol/L Glucose (74-99) mg/dL POC Glucose (mg/dL) 296 H (70-110) mg/dL Hemoglobin A1c (<=6.0) % Total Bilirubin (0.2-1.3) mg/dL AST (17-59) U/L Total Protein (6.3-8.2) g/dL Microbiology - Last 24 Hours (Table) 11/20/24 22:08 Blood Culture - Preliminary Blood
[2024-11-22] MEDS: POTASSIUM CHLORIDE ER 20 MEQ TAB.ER PO STA (14:42)
[2024-11-22 16:22] LABS: Glucose,Whole Blood 227 mg/dL (70-110)
[2024-11-22] MEDS ORDERED: ACETAMINOPHEN CHEW TAB 80 MG CHEW PO PRN (18:33)
[2024-11-22 20:29] LABS: Glucose,Whole Blood 230 mg/dL (70-110)
[2024-11-22] MEDS: INSULIN DETEMIR (LEVEMIR) 100 UNIT/ML SYR SQ SCH (20:49)
[2024-11-23 06:18] LABS: Glucose,Whole Blood 171 mg/dL (70-110)
[2024-11-23 09:42] LABS: Basophils # (A) 0.1 k/uL (0-0.2); Basophils % (A) 0 %; Eosinophils # (A) 0.2 k/uL (0-0.7); Eosinophils % (A) 1 %; HCT 33.4 % (39.0-53.0); HGB 11.3 gm/dL (13.0-17.5); Lymphocytes # (A) 9.4 k/uL (1.0-4.8); Lymphocytes % (A) 50 %; MCH 31.5 pg (25.0-35.0); MCV 92.8 fL (80.0-100.0); Monocytes # (A) 0.7 k/uL (0-1.0); Monocytes % (A) 4 %; Neutrophils # (A) 7.9 k/uL (1.3-7.7); Neutrophils % (A) 42 %; Platelet Count 156 k/uL (150-450); RDW 13.9 % (11.5-15.5); WBC 18.7 k/uL (3.8-10.6)
[2024-11-23 11:11] LABS: Glucose,Whole Blood 171 mg/dL (70-110)
[2024-11-23 11:28] LABS: Hypersegmented Neutrophils Present
--- NOTE | 2024-11-23 11:30 | P.PN ---
Subjective Progress Note Date: 11/23/24 Hospital Course: 79-year-old male with past medical history significant for coronary artery dis ease, insulin-dependent diabetes mellitus, hypertension presents to the emergency department today due to altered mental status. Initial vitals: BP 148/75, [place] 113 bpm, T 99.5 F, RR 20, O2 saturation 86% on room air Initial labs: WBCs 13.2, RBC 3.69, hemoglobin 11.7, hematocrit 32.9, platelets 137, sodium 137, potassium 3.2, chloride 99, CO2 25, BUN 15, creatinine 0.9, total bilirubin 1.5, alkaline phosphatase 132, troponin x 2 0.043 and 0.091, total protein 6.1; urinalysis 1+ protein, trace glucose Initial EKG: Sinus tachycardia with ventricular rate of 118 bpm, QTc 384 ms, left axis deviation, left ventricular hypertrophy Initial chest x-ray: No acute cardiopulmonary disease/process Initial CTA chest: No evidence of pulmonary embolism, diffuse patchy groundglass pulmonary opacities suggestive of atypical pulmonary infection, cholelithiasis, fluid identified within the visualized esophagus Initial brain CT: No acute intracranial process; age-related atrophy with nonspecific white matter changes, likely secondary to chronic small vessel ischemic changes Arterial Dopplers of lower extremity showed noncompressible vessels KENNEDY unable to be obtained. No concern for ischemic. Troponin continue to worsen. Cardiology following. Started patient on heparin drip. Echocardiogram showed LVEF 55%. Respiratory function continue to worsen. Antibiotics were broadened. Pulmonology also consulted. On Airvo. Subjective: Seen and examined at bedside. No acute events overnight. Continues to be on Airvo. Pertinent positives and negatives as discussed above, a complete review of systems was performed and all other systems are negative. Vitals Signs Reviewed. General: Nontoxic, no distress, appears at stated age, tired appearing Derm: Warm, dry Head: Atraumatic, normocephalic, symmetric Eyes: EOMI, no lid lag, anicteric sclera Mouth: No lip lesion, mucus membranes moist Cardiovascular: S1S2 reg, no murmur Lungs: Bilateral rales, no accessory muscle use, supplemental oxygen Abdominal: Soft, nontender to palpation, no guarding, no appreciable organomegaly Ext: No gross muscle atrophy, no edema, no contractures Neuro: CN II-XI grossly intact, no focal neuro deficits Psych: Alert, oriented, appropriate affect Data Reviewed Today: Pertinent Labs: WBC 18.7, hemoglobin 11.3, APTT 56.4, CMP pending, will be reviewed when available Imaging: Chest x-ray independently interpreted, bilateral interstitial opacities worsened from yesterday Assessment and Plan: Patient is critically ill, needs close monitoring. Prognosis guarded. Active: Acute hypoxic respiratory failure Multifocal pneumonia Acute NSTEMI -Continue to wean oxygen, patient currently on Airvo -On IV cefepime 2 g every 8 hours, IV vancomycin 1500 mg every 12 hours, monitor for renal toxicity -MRSA nares pending, discontinue IV vancomycin if negative -I will start steroids given severe pneumonia, started on hydrocortisone 50 IV every 6 hours -Pulmonology following -Patient continued on heparin drip, monitor APTT, monitor for bleeding -Continue aspirin 81 mg, atorvastatin 80 mg Diabetes Hyperglycemia -Continue Levemir 10 units nightly, continue sliding scale insulin, monitor for hypoglycemia Hypokalemia - CMP pending Right plantar foot ulcer -Wound care following Hyperbilirubinemia -no right upper quadrant pain Chronic: Hypertension History of CAD History of CLL, in remission DVT ppx: Heparin drip Code status: Full code Anticipated discharge place: Pending clinical course Anticipated discharge time: Pending clinical course Objective - Vital Signs Vital signs: Vital Signs Temp 98.2 F 11/23/24 11:16 Pulse 66 11/23/24 11:16 Resp 20 11/23/24 11:16 BP 118/63 11/23/24 11:16 Pulse Ox 98 11/23/24 11:16 FiO2 75 11/23/24 08:57 Intake & Output 11/22/24 11/23/24 11/23/24 18:59 06:59 18:59 Intake Total 950 180 Output Total 400 Balance 550 180 Weight 124.5 kg Intake: Intake, IV Titration 250 Amount Heparin Sod,Pork in 0.45% 250 NaCl 25,000 unit In 0.45 % NaCl 1 250ml.bag @ 10. 021 UNITS/KG/HR 10 mls/hr IV .Q24H [facility] Rx#: [id number] Oral 700 180 Output: Urine 400 Other: Voiding Method Indwelling Catheter Indwelling Catheter Indwelling Catheter - Labs CBC & Chem 7: 11/23/24 08:30 11/22/24 06:52 Labs: Abnormal Lab Results - Last 24 Hours (Table) 02/11/22/24 11/22/24 Range/Units 06:52 16:21 20:28 WBC (3.8-10.6) k/uL RBC (4.30-5.90) m/uL Hgb (13.0-17.5) gm/dL Hct (39.0-53.0) % APTT (22.0-30.0) sec POC Glucose (mg/dL) 227 H 230 H (70-110) mg/dL Hemoglobin A1c 6.9 H (<=6.0) % 11/23/24 11/23/24 11/23/24 Range/Units 06:13 08:30 08:30 WBC 18.7 H (3.8-10.6) k/uL RBC 3.60 L (4.30-5.90) m/uL Hgb 11.3 L (13.0-17.5) gm/dL Hct 33.4 L (39.0-53.0) % APTT 56.4 H (22.0-30.0) sec POC Glucose (mg/dL) 171 H (70-110) mg/dL Hemoglobin A1c (<=6.0) % 11/23/24 Range/Units 11:09 WBC (3.8-10.6) k/uL RBC (4.30-5.90) m/uL Hgb (13.0-17.5) gm/dL Hct (39.0-53.0) % APTT (22.0-30.0) sec POC Glucose (mg/dL) 171 H (70-110) mg/dL Hemoglobin A1c (<=6.0) % Microbiology - Last 24 Hours (Table) 11/20/24 22:08 Blood Culture - Preliminary Blood
[2024-11-23 11:55] LABS: ALT 28 U/L (4-49); AST 104 U/L (17-59); African American GFR (CKD) >90 (>60 ml/min/1.73 sqM); Albumin 3.2 g/dL (3.5-5.0); Alkaline Phosphatase 128 U/L (38-126); Anion Gap 7 mmol/L; Blood Urea Nitrogen 24 mg/dL (9-20); Calcium 8.6 mg/dL (8.4-10.2); Carbon Dioxide 29 mmol/L (22-30); Chloride 100 mmol/L (98-107); Glucose 155 mg/dL (74-99); Non-African American GFR(CKD) 79 (>60 ml/min/1.73 sqM); Potassium 3.5 mmol/L (3.5-5.1); Sodium 136 mmol/L (137-145); Total Bilirubin 1.5 mg/dL (0.2-1.3); Total Protein 5.5 g/dL (6.3-8.2)
--- NOTE | 2024-11-23 12:05 | P.PN ---
Subjective Progress Note Date: 11/23/24 Principal diagnosis: Respiratory failure. Pulmonary consult dated November 22, 2024. 79-year-old male who presented to the emergency department, on November 20, complaining of nausea, vomiting, diarrhea, and mental status changes. The patient was brought into the emergency department, by EMS, and apparently he was quite confused, and disoriented, when they initially evaluated him. He apparently was having GI episodes, including vomiting, nausea, and diarrhea. He denies having any chest pain or shortness of breath although his saturations were in the low 80s. He was placed on oxygen therapy, and brought into the hospital. When he was in the ER, he was apparently alert and oriented x 3. He was feeling a bit short of breath. We were consulted today, because the harriet jones's respiratory status has declined, and he is currently on Airvo, with settings of 60 L/min, and an FiO2 of 75%. The patient was thought to have a non-ST segment elevation myocardial infarction, and pneumonia. He was on IV heparin, and saline at 20 cc an hour, as well as vancomycin, and cefepime. His procalcitonin level was 0.21. Current laboratory data includes a white count of 16.9, hemoglobin 11.9, hematocrit 35.5, and a platelet count of 155,000. A blood gas done yesterday shows a pO2 of 62, pCO2 42, and a pH of 7.41. This apparently was on 100% oxygen. Sodium 135, potassium 3.3, chloride 95, CO2 30, anion gap 10, BUN 19, creatinine 1.06. Glucose 296. Hemoglobin A1c was 6.9. Albumin was 3.5. N-terminal proBNP was 2750. Blood cultures were negative. Chest x-ray showed bilateral multifocal airspace opacities, which have improved. Progress note dated November 23, 2024. 79-year-old male seen in consultation yesterday. Please see my note above. The patient is seen today in room 369. He continues on Airvo, 60 L/min and FiO2 of 75%. In addition, the patient continues on cefepime and vancomycin, his procalcitonin level was normal at 0.21. He is also on IV heparin. He states he feels about the same today as he did yesterday, no better, and no worse. White count 18.7, hemoglobin 9.3, hematocrit 33.4, platelet count 156,000. PTT is 56.4. Sodium 136, potassium 3.5, chlorides 100, CO2 29, BUN 24, creatinine 0.93. Glucose 171. Calcium 8.6. Bilirubin 1.5. Albumin 3.2. Objective - Vital Signs Vital signs: Vital Signs Temp 98.2 F 11/23/24 11:16 Pulse 66 11/23/24 11:16 Resp 20 11/23/24 11:16 BP 118/63 11/23/24 11:16 Pulse Ox 98 11/23/24 11:16 FiO2 75 11/23/24 08:57 Intake & Output 11/22/24 11/23/24 11/23/24 18:59 06:59 18:59 Intake Total 950 180 Output Total 400 Balance 550 180 Weight 124.5 kg Intake: Intake, IV Titration 250 Amount Heparin Sod,Pork in 0.45% 250 NaCl 25,000 unit In 0.45 % NaCl 1 250ml.bag @ 10. 021 UNITS/KG/HR 10 mls/hr IV .Q24H [facility] Rx#: [id number] Oral 700 180 Output: Urine 400 Other: Voiding Method Indwelling Catheter Indwelling Catheter Indwelling Catheter - Exam No acute distress, oriented 3. The patient is currently on Airvo. Settings are 60 L/min with an FiO2 of 75%. The patient is able to speak in full sentences without difficulty. HEENT examination is grossly unremarkable. Mucous membranes are moist. No oral lesions. Neck supple. Full range of motion. No adenopathy thyromegaly or neck vein distention. Cardiovascular examination reveals regular rhythm rate. S1-S2 normal. No S3 or S4. No discernible murmur noted. Heart sounds are distant. Lungs reveal mild scattered rhonchi. No wheezes. No crackles. Breath sounds equal bilaterally. Abdomen soft bowel sounds are heard. No masses or tenderness. Extremities are intact. No cyanosis clubbing or edema. Skin is without rash or lesion. Neurologic examination is brief but nonfocal. - Labs CBC & Chem 7: 11/23/24 08:30 11/23/24 08:30 Labs: Abnormal Lab Results - Last 24 Hours (Table) 11/22/24 11/22/24 11/22/24 Range/Units 06:52 16:21 20:28 WBC (3.8-10.6) k/uL RBC (4.30-5.90) m/uL Hgb (13.0-17.5) gm/dL Hct (39.0-53.0) % Neutrophils # (1.3-7.7) k/uL Lymphocytes # (1.0-4.8) k/uL APTT (22.0-30.0) sec Sodium (137-145) mmol/L BUN (9-20) mg/dL Glucose (74-99) mg/dL POC Glucose (mg/dL) 227 H 230 H (70-110) mg/dL Hemoglobin A1c 6.9 H (<=6.0) % Total Bilirubin (0.2-1.3) mg/dL AST (17-59) U/L Alkaline Phosphatase (38-126) U/L Total Protein (6.3-8.2) g/dL Albumin (3.5-5.0) g/dL 11/23/24 11/23/24 11/23/24 Range/Units 06:13 08:30 08:30 WBC (3.8-10.6) k/uL RBC (4.30-5.90) m/uL Hgb (13.0-17.5) gm/dL Hct (39.0-53.0) % Neutrophils # (1.3-7.7) k/uL Lymphocytes # (1.0-4.8) k/uL APTT 56.4 H (22.0-30.0) sec Sodium 136 L (137-145) mmol/L BUN 24 H (9-20) mg/dL Glucose 155 H (74-99) mg/dL POC Glucose (mg/dL) 171 H (70-110) mg/dL Hemoglobin A1c (<=6.0) % Total Bilirubin 1.5 H (0.2-1.3) mg/dL AST 104 H (17-59) U/L Alkaline Phosphatase 128 H (38-126) U/L Total Protein 5.5 L (6.3-8.2) g/dL Albumin 3.2 L (3.5-5.0) g/dL 11/23/24 11/23/24 Range/Units 08:30 11:09 WBC 18.7 H (3.8-10.6) k/uL RBC 3.60 L (4.30-5.90) m/uL Hgb 11.3 L (13.0-17.5) gm/dL Hct 33.4 L (39.0-53.0) % Neutrophils # 7.9 H (1.3-7.7) k/uL Lymphocytes # 9.4 H (1.0-4.8) k/uL APTT (22.0-30.0) sec Sodium (137-145) mmol/L BUN (9-20) mg/dL Glucose (74-99) mg/dL POC Glucose (mg/dL) 171 H (70-110) mg/dL Hemoglobin A1c (<=6.0) % Total Bilirubin (0.2-1.3) mg/dL AST (17-59) U/L Alkaline Phosphatase (38-126) U/L Total Protein (6.3-8.2) g/dL Albumin (3.5-5.0) g/dL Microbiology - Last 24 Hours (Table) 11/20/24 22:08 Blood Culture - Preliminary Blood Assessment and Plan Assessment: Acute hypoxemic respiratory failure, likely on the basis of pneumonia versus fluid overload. Non-ST segment elevation myocardial infarction. History of coronary artery disease. History of diabetes mellitus. History of hypertension. History of gastroesophageal reflux disease. History of chronic lymphocytic leukemia, in remission. History of osteoarthritis. Plan: Plan dated November 22, 2024. The patient is seen today in room 369. We are asked to see this patient, for worsening respiratory status. The patient is currently on Airvo, 60 L/min, with an FiO2 of 75%. He is receiving IV heparin, for presumed non-ST segment elevation myocardial infarction. The patient continues on vancomycin and cefepime for possible pneumonia. He was admitted on November 20. His procalcitonin level was normal at 0.21. The patient is getting 0.9 at 20 cc an hour. Labs, x-rays, and all medications are reviewed. We will continue to follow the patient, make recommendations where appropriate. 55 minutes was spent with this patient, including taking his history, examining the patient, reviewing pertinent laboratory data, x-rays, and medications, as well as discussing the diagnosis, treatment, prognosis, with the patient, the patient's nurse. We also spoke to the primary service, about this patient. We will continue to follow. Dictation was produced using [employer] software. Please excuse any grammatical, word or spelling errors. Plan dated November 23, 2024. The patient is seen today in room 369. The patient continues on IV heparin, cefepime, vancomycin, and the Airvo, 60 L/min, with the FiO2 set at 75%. The patient's procalcitonin level was normal at 0.21. All labs, x-rays, and medications are reviewed. The patient states that he is feeling about the same today as he did yesterday when we saw him. He states he is no better, and certainly no worse. 50 minutes was spent with this patient, which included obtaining additional history, examining the patient, reviewing pertinent laboratory data, x-rays, and medications, as well as discussing the diagnosis, t reatment, prognosis, with the patient, and the patient's bedside nurse. Dictation was produced using [employer] software. Please excuse any grammatical, word or spelling errors. Time with Patient: Greater than 30
[2024-11-23] MEDS: HYDROCORTISONE SUCCINATE 100 MG/2 ML VIAL IV SCH (12:12)
--- NOTE | 2024-11-23 16:12 | P.PN ---
Subjective Progress Note Date: 11/22/24 This is a 79-year-old male patient of Dr. Macdonald with past medical history of coronary artery disease, hypertension, dyslipidemia. We have been asked to evaluate the patient for elevated troponins. Patient was brought into the hospital by EMS due to confusion. He was found to be hypoxic in the low 80s. He was placed on oxygen and this improved his mental status. Patient states that his found that he was babbling and he also had a high fever at home. Patient denies chest pain, no shortness of breath. Blood pressure 147/72, heart rate 59, pulse ox 100% on 3 L nasal cannula. Patient is status post 500 cc bolus of IV fluids, potassium replacement and IV antibiotics. Patient is seen today in the emergency center waiting for bed on the cardiac stepdown unit. -EKG: Sinus tachycardia at 118 bpm, LVH. -Chest x-ray: No acute process. -CTA of the chest reveals no PE. Diffuse patchy groundglass pulmonary opacities suggest atypical pulmonary infection. Cholelithiasis. Fluid identified within the visualized esophagus. Correlate for GERD. -CT brain: No acute process. Chronic small vessel ischemic changes. -Laboratory studies: WBC 13.2, hemoglobin 11.7, platelet count 137. Potassium 3 .2, sodium 137, BUN 15 creatinine 0.9. Troponin 0.043, 0.091 and 0.078. proBNP 631. Alkaline phosphatase 132 and total bilirubin 1.5. Urine drug screen positive for opiates. Serum alcohol less than 10. Cepheid viral panel negative. -Home cardiac medications: Atorvastatin 80 mg daily, lisinopril 20 mg twice daily. -Cardiac catheterization performed 07/27/2021 revealed 20% in the mid circumflex and 50% in the mid RCA. -Echocardiogram performed 01/24/2021 revealed normal EF. -Lexiscan Cardiolite stress test performed 07/27/2021 revealed small basal lateral reversible defect. Progress note 11/22/2024 Patient is seen and examined at bedside this a.m. Patient continues to be on high flow nasal cannula, somnolent but arousable with verbal stimuli. No new cardiovascular events overnight. Physical examination: Gen: This is a 79-year-old male in no acute distress VS: reviewed HEENT: Head is atraumatic, normocephalic. Pupils equal, round. Sclerae is anicteric. NECK: Supple. No JVD. LUNGS: Diminished bilaterally. Mild crackles audible in bilateral bases, on high flow nasal cannula. HEART: Regular rate and rhythm. Systolic murmur. ABDOMEN: Soft No tenderness. EXTREMITIES: No pedal edema. No calf tenderness. NEUROLOGICAL: Patient is awake, alert and oriented x3. Assessment: Hypoxic metabolic encephalopathy, resolved NSTEMI type II secondary to pneumonia and sepsis Nonobstructive coronary artery disease on previous cardiac catheterization Hypertension Dyslipidemia Ulcer right foot, chronic Diabetes Pertinent cardiac testing Echo shows EF of 55%, inferolateral wall hypokinesia, no significant valvular dysfunction, normal RV size and systolic function. Plan: Continue aspirin, Lipitor, metoprolol succinate 25 mg daily. Continue IV heparin for next 24 hours Objective - Vital Signs Vital signs: Vital Signs Temp 98.2 F 11/23/24 11:16 Pulse 66 11/23/24 14:08 Resp 20 11/23/24 14:08 BP 118/63 11/23/24 11:16 Pulse Ox 98 11/23/24 11:16 FiO2 75 11/23/24 13:14 Intake & Output 11/22/24 11/23/24 11/23/24 18:59 06:59 18:59 Intake Total 950 360 Output Total 400 600 Balance 550 -240 Weight 124.5 kg Intake: Intake, IV Titration 250 Amount Heparin Sod,Pork in 0.45% 250 NaCl 25,000 unit In 0.45 % NaCl 1 250ml.bag @ 10. 021 UNITS/KG/HR 10 mls/hr IV .Q24H [facility] Rx#: [id number] Oral 700 360 Output: Urine 400 600 Other: Voiding Method Indwelling Catheter Indwelling Catheter Indwelling Catheter - Labs CBC & Chem 7: 11/23/24 08:30 11/23/24 08:30 Labs: Abnormal Lab Results - Last 24 Hours (Table) 11/22/24 11/22/24 11/23/24 Range/Units 16:21 20:28 06:13 WBC (3.8-10.6) k/uL RBC (4.30-5.90) m/uL Hgb (13.0-17.5) gm/dL Hct (39.0-53.0) % Neutrophils # (1.3-7.7) k/uL Lymphocytes # (1.0-4.8) k/uL APTT (22.0-30.0) sec Sodium (137-145) mmol/L BUN (9-20) mg/dL Glucose (74-99) mg/dL POC Glucose (mg/dL) 227 H 230 H 171 H (70-110) mg/dL Total Bilirubin (0.2-1.3) mg/dL AST (17-59) U/L Alkaline Phosphatase (38-126) U/L Total Protein (6.3-8.2) g/dL Albumin (3.5-5.0) g/dL 11/23/24 11/23/24 11/23/24 Range/Units 08:30 08:30 08:30 WBC 18.7 H (3.8-10.6) k/uL RBC 3.60 L (4.30-5.90) m/uL Hgb 11.3 L (13.0-17.5) gm/dL Hct 33.4 L (39.0-53.0) % Neutrophils # 7.9 H (1.3-7.7) k/uL Lymphocytes # 9.4 H (1.0-4.8) k/uL APTT 56.4 H (22.0-30.0) sec Sodium 136 L (137-145) mmol/L BUN 24 H (9-20) mg/dL Glucose 155 H (74-99) mg/dL POC Glucose (mg/dL) (70-110) mg/dL Total Bilirubin 1.5 H (0.2-1.3) mg/dL AST 104 H (17-59) U/L Alkaline Phosphatase 128 H (38-126) U/L Total Protein 5.5 L (6.3-8.2) g/dL Albumin 3.2 L (3.5-5.0) g/dL 11/23/24 Range/Units 11:09 WBC (3.8-10.6) k/uL RBC (4.30-5.90) m/uL Hgb (13.0-17.5) gm/dL Hct (39.0-53.0) % Neutrophils # (1.3-7.7) k/uL Lymphocytes # (1.0-4.8) k/uL APTT (22.0-30.0) sec Sodium (137-145) mmol/L BUN (9-20) mg/dL Glucose (74-99) mg/dL POC Glucose (mg/dL) 171 H (70-110) mg/dL Total Bilirubin (0.2-1.3) mg/dL AST (17-59) U/L Alkaline Phosphatase (38-126) U/L Total Protein (6.3-8.2) g/dL Albumin (3.5-5.0) g/dL Microbiology - Last 24 Hours (Table) 11/20/24 22:08 Blood Culture - Preliminary Blood
[2024-11-23 16:14] LABS: Glucose,Whole Blood 225 mg/dL (70-110)
--- NOTE | 2024-11-23 16:15 | P.PN ---
Subjective Progress Note Date: 11/23/24 This is a 79-year-old male patient of Dr. Macdonald with past medical history of coronary artery disease, hypertension, dyslipidemia. We have been asked to evaluate the patient for elevated troponins. Patient was brought into the hospital by EMS due to confusion. He was found to be hypoxic in the low 80s. He was placed on oxygen and this improved his mental status. Patient states that his found that he was babbling and he also had a high fever at home. Patient denies chest pain, no shortness of breath. Blood pressure 147/72, heart rate 59, pulse ox 100% on 3 L nasal cannula. Patient is status post 500 cc bolus of IV fluids, potassium replacement and IV antibiotics. Patient is seen today in the emergency center waiting for bed on the cardiac stepdown unit. -EKG: Sinus tachycardia at 118 bpm, LVH. -Chest x-ray: No acute process. -CTA of the chest reveals no PE. Diffuse patchy groundglass pulmonary opacities suggest atypical pulmonary infection. Cholelithiasis. Fluid identified within the visualized esophagus. Correlate for GERD. -CT brain: No acute process. Chronic small vessel ischemic changes. -Laboratory studies: WBC 13.2, hemoglobin 11.7, platelet count 137. Potassium 3 .2, sodium 137, BUN 15 creatinine 0.9. Troponin 0.043, 0.091 and 0.078. proBNP 631. Alkaline phosphatase 132 and total bilirubin 1.5. Urine drug screen positive for opiates. Serum alcohol less than 10. Cepheid viral panel negative. -Home cardiac medications: Atorvastatin 80 mg daily, lisinopril 20 mg twice daily. -Cardiac catheterization performed 07/27/2021 revealed 20% in the mid circumflex and 50% in the mid RCA. -Echocardiogram performed 01/24/2021 revealed normal EF. -Lexiscan Cardiolite stress test performed 07/27/2021 revealed small basal lateral reversible defect. Progress note 11/22/2024 Patient is seen and examined at bedside this a.m. Patient continues to be on high flow nasal cannula, somnolent but arousable with verbal stimuli. No new cardiovascular events overnight. 11/23/2024 Patient is seen examined bedside this a.m. No new cardiovascular events overnight Sinus rhythm on telemetry with intermittent sinus tachycardia. Continues to be on high flow nasal cannula supplemental oxygen Physical examination: Gen: This is a 79-year-old male in no acute distress VS: reviewed HEENT: Head is atraumatic, normocephalic. Pupils equal, round. Sclerae is anicteric. NECK: Supple. No JVD. LUNGS: Diminished bilaterally. Mild crackles audible in bilateral bases, on high flow nasal cannula. HEART: Regular rate and rhythm. Systolic murmur. ABDOMEN: Soft No tenderness. EXTREMITIES: No pedal edema. No calf tenderness. NEUROLOGICAL: Patient is awake, alert and oriented x3. Assessment: Hypoxic metabolic encephalopathy, resolved NSTEMI type II secondary to pneumonia and sepsis Nonobstructive coronary artery disease on previous cardiac catheterization Hypertension Dyslipidemia Ulcer right foot, chronic Diabetes Pertinent cardiac testing Echo shows EF of 55%, inferolateral wall hypokinesia, no significant valvular dysfunction, normal RV size and systolic function. Plan: Continue aspirin, Lipitor, metoprolol succinate 25 mg daily. Discontinue IV heparin drip. Has completed 48 hours. I would add Plavix 75 mg for NSTEMI management. I would recommend outpatient Lexiscan nuclear stress test for this patient once discharged. I would recommend outpatient follow-up with cardiology. If Lexiscan stress test is not positive for any infarct or ischemia, may consider stopping his Plavix. At this time patient is cleared from cardiovascular standpoint. Please r econsult us in case of any question. Objective - Vital Signs Vital signs: Vital Signs Temp 98.2 F 11/23/24 11:16 Pulse 66 11/23/24 14:08 Resp 20 11/23/24 14:08 BP 118/63 11/23/24 11:16 Pulse Ox 98 11/23/24 11:16 FiO2 75 11/23/24 13:14 Intake & Output 11/22/24 11/23/24 11/23/24 18:59 06:59 18:59 Intake Total 950 360 Output Total 400 600 Balance 550 -240 Weight 124.5 kg Intake: Intake, IV Titration 250 Amount Heparin Sod,Pork in 0.45% 250 NaCl 25,000 unit In 0.45 % NaCl 1 250ml.bag @ 10. 021 UNITS/KG/HR 10 mls/hr IV .Q24H [facility] Rx#: [id number] Oral 700 360 Output: Urine 400 600 Other: Voiding Method Indwelling Catheter Indwelling Catheter Indwelling Catheter - Labs CBC & Chem 7: 11/23/24 08:30 11/23/24 08:30 Labs: Abnormal Lab Results - Last 24 Hours (Table) 11/22/24 11/22/24 11/23/24 Range/Units 16:21 20:28 06:13 WBC (3.8-10.6) k/uL RBC (4.30-5.90) m/uL Hgb (13.0-17.5) gm/dL Hct (39.0-53.0) % Neutrophils # (1.3-7.7) k/uL Lymphocytes # (1.0-4.8) k/uL APTT (22.0-30.0) sec Sodium (137-145) mmol/L BUN (9-20) mg/dL Glucose (74-99) mg/dL POC Glucose (mg/dL) 227 H 230 H 171 H (70-110) mg/dL Total Bilirubin (0.2-1.3) mg/dL AST (17-59) U/L Alkaline Phosphatase (38-126) U/L Total Protein (6.3-8.2) g/dL Albumin (3.5-5.0) g/dL 11/23/24 11/23/24 11/23/24 Range/Units 08:30 08:30 08:30 WBC 18.7 H (3.8-10.6) k/uL RBC 3.60 L (4.30-5.90) m/uL Hgb 11.3 L (13.0-17.5) gm/dL Hct 33.4 L (39.0-53.0) % Neutrophils # 7.9 H (1.3-7.7) k/uL Lymphocytes # 9.4 H (1.0-4.8) k/uL APTT 56.4 H (22.0-30.0) sec Sodium 136 L (137-145) mmol/L BUN 24 H (9-20) mg/dL Glucose 155 H (74-99) mg/dL POC Glucose (mg/dL) (70-110) mg/dL Total Bilirubin 1.5 H (0.2-1.3) mg/dL AST 104 H (17-59) U/L Alkaline Phosphatase 128 H (38-126) U/L Total Protein 5.5 L (6.3-8.2) g/dL Albumin 3.2 L (3.5-5.0) g/dL 11/23/24 Range/Units 11:09 WBC (3.8-10.6) k/uL RBC (4.30-5.90) m/uL Hgb (13.0-17.5) gm/dL Hct (39.0-53.0) % Neutrophils # (1.3-7.7) k/uL Lymphocytes # (1.0-4.8) k/uL APTT (22.0-30.0) sec Sodium (137-145) mmol/L BUN (9-20) mg/dL Glucose (74-99) mg/dL POC Glucose (mg/dL) 171 H (70-110) mg/dL Total Bilirubin (0.2-1.3) mg/dL AST (17-59) U/L Alkaline Phosphatase (38-126) U/L Total Protein (6.3-8.2) g/dL Albumin (3.5-5.0) g/dL Microbiology - Last 24 Hours (Table) 11/20/24 22:08 Blood Culture - Preliminary Blood
[2024-11-23 20:25] LABS: Glucose,Whole Blood 323 mg/dL (70-110)
[2024-11-24] MEDS: QUEtiapine 25 MG TAB PO STA (00:05)
[2024-11-24] MEDS: LORazepam 2 MG/ML INJ IV STA (01:16)
[2024-11-24 01:18] LABS: Glucose,Whole Blood 183 mg/dL (70-110)
[2024-11-24 06:25] LABS: Glucose,Whole Blood 207 mg/dL (70-110)
[2024-11-24 07:44] LABS: HCT 30.8 % (39.0-53.0); HGB 10.6 gm/dL (13.0-17.5); MCH 31.7 pg (25.0-35.0); MCHC 34.3 g/dL (31.0-37.0); MCV 92.5 fL (80.0-100.0); Mean Platelet Volume 8.9; Platelet Count 142 k/uL (150-450); Poikilocytosis Slight; RBC 3.33 m/uL (4.30-5.90); RDW 14.4 % (11.5-15.5); WBC 12.7 k/uL (3.8-10.6)
[2024-11-24 08:27] LABS: ALT 29 U/L (4-49); AST 50 U/L (17-59); African American GFR (CKD) >90 (>60 ml/min/1.73 sqM); Albumin 2.9 g/dL (3.5-5.0); Alkaline Phosphatase 133 U/L (38-126); Anion Gap 8 mmol/L; Blood Urea Nitrogen 23 mg/dL (9-20); Calcium 8.3 mg/dL (8.4-10.2); Carbon Dioxide 25 mmol/L (22-30); Chloride 102 mmol/L (98-107); Glucose 207 mg/dL (74-99); Magnesium 1.9 mg/dL (1.6-2.3); Non-African American GFR(CKD) 86 (>60 ml/min/1.73 sqM); Potassium 3.4 mmol/L (3.5-5.1); Sodium 135 mmol/L (137-145); Total Bilirubin 1.2 mg/dL (0.2-1.3); Total Protein 5.2 g/dL (6.3-8.2)
[2024-11-24 09:13] LABS: Lymphocytes # (M) 5.84 k/uL (1.0-4.8); Myelocytes # (M) 0.13 k/uL (0); Myelocytes % 1 %; Neutrophils # (M) 6.73 k/uL (1.3-7.7); Neutrophils % (M) 53 %; Nucleated Red Blood Cells 0 /100 WBC (0-0); Total Cells Counted 100
[2024-11-24 09:14] LABS: Anisocytosis (M) Present; Polychromasia Present
[2024-11-24 11:34] LABS: Glucose,Whole Blood 239 mg/dL (70-110)
[2024-11-24] MEDS: CLOPIDOGREL 75 MG TAB PO SCH (11:54)
[2024-11-24] MEDS: POTASSIUM CHLORIDE ER 20 MEQ TAB.ER PO STA (11:55)
[2024-11-24] MEDS ORDERED: VANCOMYCIN TROUGH DUE 1 EACH MISC MISCELLANE ONE (12:00)
[2024-11-24 12:36] LABS: African American GFR (CKD) >90 (>60 ml/min/1.73 sqM); Non-African American GFR(CKD) 85 (>60 ml/min/1.73 sqM)
--- NOTE | 2024-11-24 13:22 | P.PN ---
Subjective Progress Note Date: 11/24/24 79-year-old male with past medical history significant for coronary artery disease, insulin-dependent diabetes mellitus, hypertension presents to the emergency department today due to altered mental status. Patient is unsure of the events surrounding his admission so most of the history is obtained via re cords and hospital staff. Patient was having shortness of breath at home and his called EMS. When EMS arrived to his house he was oriented only to self. He was found to be hypoxic in the low 80s and was placed on supplemental oxygen. Patient denies wearing oxygen at home. Upon arrival to the hospital oxygen saturation had improved and he was AO x 3. He also had an episode of vomiting. Patient reports that he has been feeling sick recently with myalgias, cough productive of greenish sputum, actively being treated for sinus infection. He denies nausea/vomiting, abdominal pain, chest pain, dyspnea, weight loss. 11/22/24 - Seen and examined at bedside. Overnight, patient was more hypoxic, antibiotics were broadened. Now requiring Airvo. 11/23/24 - Seen and examined at bedside. No acute events overnight. Continues to be on Airvo. 11/24/24 - Patient seen and examined at bedside this morning. Overnight the patient became agitated, attempting to get out of his bed and attempting to remove his Airvo. He was given Seroquel 25 mg and was able to calm down. MRSA nares was found to be negative vancomycin was discontinued at this time. REVIEW OF SYSTEMS: Pertinent positives and negatives noted in HPI. Physical Exam: General: nontoxic, no distress, appears at stated age Derm: warm, dry, intact Head: atraumatic, normocephalic, symmetric Eyes: EOMI, anicteric sclera Cardiovascular: S1 S2 reg, no murmur, rubs, or gallops Lungs: Diminished breath sounds bilaterally, Mild crackles audible in bilateral bases, on high flow nasal cannula. Abdominal: soft, non-tender to palpataion, no appreciable organomegaly Extremities: no gross muscle atrophy, no edema, no contractures Neuro: Alert, Oriented, CNII-XII grossly intact, gait normal Psych: well appearing, appropriate affect Data Received Today: Labs: WBCs 12.7, hemoglobin 10.6, hematocrit 30.8, platelet 142; sodium 135, potassium 3.4 BUN 23, creatinine 0.1, calcium 8.3, magnesium 1.9, alkaline phosphatase 133 Imagining: Assessment and plan 79-year-old male with past medical history significant for coronary artery disease, insulin-dependent diabetes mellitus, hypertension presents to the emergency department today due to altered mental status. #Severe ARDS #Acute hypoxic respiratory failure #Multifocal pneumonia #Acute NSTEMI -P:F ratio 68 -Continue to wean oxygen, patient currently on Airvo -On IV cefepime 2 g every 8 hours -MRSA nares negative, discontinue vancomycin -Continue on hydrocortisone 50 IV every 6 hours -Pulmonology following -Heparin drip discontinued -Continue aspirin 81 mg, atorvastatin 80 mg, Plavix 75 mg daily -Recommend patient undergoes outpatient Lexiscan nuclear stress test upon discharge and outpatient follow-up with cardiology; if Lexiscan stress test is not positive for any infarct or ischemia, may consider stopping Plavix #Acute onset delirium -Started on Seroquel 25 mg daily #Diabetes #Hyperglycemia -Continue Levemir 15 units nightly, continue sliding scale insulin, monitor for hypoglycemia #Hypokalemia -Given 40 mEq once 11/24/2024 -Continue monitor CMP #Right plantar foot ulcer -Wound care following #Hyperbilirubinemia -no right upper quadrant pain #Hypertension -Continue to monitor vital signs Chronic: Hypertension History of CAD History of CLL, in remission DVT ppx: heparin sq Code status: Full code F: None E: Replete as needed N: Heart healthy diet A: Ambulatory Anticipated discharge place: Pending clinical course Anticipated discharge time: Pending clinical course Dictation was produced using [employer] dictation software. please excuse any grammatical, word or spelling errors. I have seen and evaluated the patient today. Discussed with the resident and agree with the residents finding and plan as documented in the resident's note. Changes highlighted in blue font. Objective - Vital Signs Vital signs: Vital Signs Temp 98.9 F 11/24/24 03:44 Pulse 97 11/24/24 03:44 Resp 18 11/24/24 03:44 BP 146/77 11/24/24 03:44 Pulse Ox 96 11/24/24 03:44 FiO2 80 11/24/24 03:44 Intake & Output 11/23/24 11/24/24 11/24/24 18:59 06:59 18:59 Intake Total 540 Output Total 600 325 325 Balance -60 -325 -325 Weight 115.5 kg Intake: Oral 540 Output: Urine 600 325 325 Other: Voiding Method Indwelling Catheter Indwelling Catheter # Bowel Movements 1 - Labs CBC & Chem 7: 11/24/24 05:39 11/24/24 12:04 Labs: Abnormal Lab Results - Last 24 Hours (Table) 11/23/24 11/23/24 11/23/24 Range/Units 08:30 08:30 08:30 WBC 18.7 H (3.8-10.6) k/uL RBC 3.60 L (4.30-5.90) m/uL Hgb 11.3 L (13.0-17.5) gm/dL Hct 33.4 L (39.0-53.0) % Plt Count (150-450) k/uL Neutrophils # 7.9 H (1.3-7.7) k/uL Lymphocytes # 9.4 H (1.0-4.8) k/uL APTT 56.4 H (22.0-30.0) sec Sodium 136 L (137-145) mmol/L BUN 24 H (9-20) mg/dL Glucose 155 H (74-99) mg/dL POC Glucose (mg/dL) (70-110) mg/dL Total Bilirubin 1.5 H (0.2-1.3) mg/dL AST 104 H (17-59) U/L Alkaline Phosphatase 128 H (38-126) U/L Total Protein 5.5 L (6.3-8.2) g/dL Albumin 3.2 L (3.5-5.0) g/dL 11/23/24 11/23/24 11/23/24 Range/Units 11:09 16:13 20:05 WBC (3.8-10.6) k/uL RBC (4.30-5.90) m/uL Hgb (13.0-17.5) gm/dL Hct (39.0-53.0) % Plt Count (150-450) k/uL Neutrophils # (1.3-7.7) k/uL Lymphocytes # (1.0-4.8) k/uL APTT (22.0-30.0) sec Sodium (137-145) mmol/L BUN (9-20) mg/dL Glucose (74-99) mg/dL POC Glucose (mg/dL) 171 H 225 H 323 H (70-110) mg/dL Total Bilirubin (0.2-1.3) mg/dL AST (17-59) U/L Alkaline Phosphatase (38-126) U/L Total Protein (6.3-8.2) g/dL Albumin (3.5-5.0) g/dL 11/24/24 11/24/24 11/24/24 Range/Units 01:16 05:39 06:24 WBC 12.7 H (3.8-10.6) k/uL RBC 3.33 L (4.30-5.90) m/uL Hgb 10.6 L (13.0-17.5) gm/dL Hct 30.8 L (39.0-53.0) % Plt Count 142 L (150-450) k/uL Neutrophils # (1.3-7.7) k/uL Lymphocytes # (1.0-4.8) k/uL APTT (22.0-30.0) sec Sodium (137-145) mmol/L BUN (9-20) mg/dL Glucose (74-99) mg/dL POC Glucose (mg/dL) 183 H 207 H (70-110) mg/dL Total Bilirubin (0.2-1.3) mg/dL AST (17-59) U/L Alkaline Phosphatase (38-126) U/L Total Protein (6.3-8.2) g/dL Albumin (3.5-5.0) g/dL Microbiology - Last 24 Hours (Table) 11/20/24 22:08 Blood Culture - Preliminary Blood
[2024-11-24] MEDS: FUROSEMIDE 10 MG/ML 4 ML VIAL IV SCH (14:51)
[2024-11-24] MEDS: HEPARIN SODIUM,PORCINE 5,000 UNIT/ML 1 ML VIAL SQ SCH (16:22)
[2024-11-24 16:54] LABS: Glucose,Whole Blood 199 mg/dL (70-110)
--- NOTE | 2024-11-24 19:58 | P.PN ---
Subjective Progress Note Date: 11/24/24 79-year-old male who presented to the emergency department, on November 20, complaining of nausea, vomiting, diarrhea, and mental status changes. The patient was brought into the emergency department, by EMS, and apparently he was quite confused, and disoriented, when they initially evaluated him. He a pparently was having GI episodes, including vomiting, nausea, and diarrhea. He denies having any chest pain or shortness of breath although his saturations were in the low 80s. He was placed on oxygen therapy, and brought into the hospital. When he was in the ER, he was apparently alert and oriented x 3. He was feeling a bit short of breath. We were consulted today, because the patient's respiratory status has declined, and he is currently on Airvo, with settings of 60 L/min, and an FiO2 of 75%. The patient was thought to have a non-ST segment elevation myocardial infarction, and pneumonia. He was on IV heparin, and saline at 20 cc an hour, as well as vancomycin, and cefepime. His procalcitonin level was 0.21. Current laboratory data includes a white count of 16.9, hemoglobin 11.9, hematocrit 35.5, and a platelet count of 155,000. A blood gas done yesterday shows a pO2 of 62, pCO2 42, and a pH of 7.41. This apparently was on 100% oxygen. Sodium 135, potassium 3.3, chloride 95, CO2 30, anion gap 10, BUN 19, creatinine 1.06. Glucose 296. Hemoglobin A1c was 6.9. Albumin was 3.5. N-terminal proBNP was 2750. Blood cultures were negative. Chest x-ray showed bilateral multifocal airspace opacities, which have improved. Progress note dated November 23, 2024. 79-year-old male seen in consultation yesterday. Please see my note above. The patient is seen today in room 369. He continues on Airvo, 60 L/min and FiO2 of 75%. In addition, the patient continues on cefepime and vancomycin, his procalcitonin level was normal at 0.21. He is also on IV heparin. He states he feels about the same today as he did yesterday, no better, and no worse. White count 18.7, hemoglobin 9.3, hematocrit 33.4, platelet count 156,000. PTT is 56.4. Sodium 136, potassium 3.5, chlorides 100, CO2 29, BUN 24, creatinine 0.93. Glucose 171. Calcium 8.6. Bilirubin 1.5. Albumin 3.2. On 11/24/2024, the patient is being seen for a follow-up. The patient remains quite hypoxic. On today's evaluation, the patient remains on Airvo at 60 L with FiO2 of 70%. The chest x-ray from 11/21/2024 showed improved aeration of both lungs with persistent multifocal airspace opacities. The patient's blood work showed a procalcitonin level of 0.2 at the time of admission x 2 and a proBNP le bryson was 2750. On today's blood work, sodium levels at 135, potassium level is 3.4, BUN 23 with a creatinine of 0.8. LFTs are essentially within normal limits. The patient remains on IV cefepime. The patient will be started on IV Lasix. The patient is also on DuoNeb nebulized treatments [id number], IV hydrocortisone, Levemir insulin 15 units at bedtime and the patient is on metoprolol 25 mg p.o. twice a day. Rest of the medications remain unchanged. Echocardiogram was done on 11/21/2024 indicating a ejection fraction of 50 to 55%, inferolateral wall hypokinesis, no significant valvular abnormalities. The CTA of the chest done on 11/20/2024 revealed no pulmonary embolism and diffuse patchy groundglass pulmonary opacities could relate to interstitial edema versus atypical pulmonary infection and the patient also has evidence of cholelithiasis. The viral screen was negative and Legionella urine antigen was negative at the time of admission. Mental status is appropriate at this point. Objective - Vital Signs Vital signs: Vital Signs Temp 98.3 F 11/24/24 09:14 Pulse 76 11/24/24 12:26 Resp 22 11/24/24 11:52 BP 181/77 11/24/24 11:52 Pulse Ox 95 11/24/24 11:52 FiO2 73 11/24/24 12:16 Intake & Output 11/23/24 11/24/24 11/24/24 18:59 06:59 18:59 Intake Total 540 Output Total 600 325 325 Balance -60 -325 -325 Weight 115.5 kg Intake: Oral 540 Output: Urine 600 325 325 Other: Voiding Method Indwelling Catheter Indwelling Catheter Indwelling Catheter # Bowel Movements 1 - Exam No acute distress, oriented 3. The patient is currently on Airvo. Settings are 60 L/min with an FiO2 of 75%. The patient is able to speak in full sentences without difficulty. HEENT examination is grossly unremarkable. Mucous membranes are moist. No oral lesions. Neck supple. Full range of motion. No adenopathy thyromegaly or neck vein distention. Cardiovascular examination reveals regular rhythm rate. S1-S2 normal. No S3 or S4. No discernible murmur noted. Heart sounds are distant. Lungs reveal mild scattered rhonchi. No wheezes. No crackles. Breath sounds equal bilaterally. Abdomen soft bowel sounds are heard. No masses or tenderness. Extremities are intact. No cyanosis clubbing or edema. Skin is without rash or lesion. Neurologic examination is brief but nonfocal. - Labs CBC & Chem 7: 11/24/24 05:39 11/24/24 12:04 Labs: Abnormal Lab Results - Last 24 Hours (Table) 11/23/24 11/23/24 11/24/24 Range/Units 16:13 20:05 01:16 WBC (3.8-10.6) k/uL RBC (4.30-5.90) m/uL Hgb (13.0-17.5) gm/dL Hct (39.0-53.0) % Plt Count (150-450) k/uL Lymphocytes # (Manual) (1.0-4.8) k/uL Myelocytes # (Manual) (0) k/uL Sodium (137-145) mmol/L Potassium (3.5-5.1) mmol/L BUN (9-20) mg/dL Glucose (74-99) mg/dL POC Glucose (mg/dL) 225 H 323 H 183 H (70-110) mg/dL Calcium (8.4-10.2) mg/dL Alkaline Phosphatase (38-126) U/L Total Protein (6.3-8.2) g/dL Albumin (3.5-5.0) g/dL 11/24/24 11/24/24 11/24/24 Range/Units 05:39 05:39 06:24 WBC 12.7 H (3.8-10.6) k/uL RBC 3.33 L (4.30-5.90) m/uL Hgb 10.6 L (13.0-17.5) gm/dL Hct 30.8 L (39.0-53.0) % Plt Count 142 L (150-450) k/uL Lymphocytes # (Manual) 5.84 H (1.0-4.8) k/uL Myelocytes # (Manual) 0.13 H (0) k/uL Sodium 135 L (137-145) mmol/L Potassium 3.4 L (3.5-5.1) mmol/L BUN 23 H (9-20) mg/dL Glucose 207 H (74-99) mg/dL POC Glucose (mg/dL) 207 H (70-110) mg/dL Calcium 8.3 L (8.4-10.2) mg/dL Alkaline Phosphatase 133 H (38-126) U/L Total Protein 5.2 L (6.3-8.2) g/dL Albumin 2.9 L (3.5-5.0) g/dL 11/24/24 Range/Units 11:33 WBC (3.8-10.6) k/uL RBC (4.30-5.90) m/uL Hgb (13.0-17.5) gm/dL Hct (39.0-53.0) % Plt Count (150-450) k/uL Lymphocytes # (Manual) (1.0-4.8) k/uL Myelocytes # (Manual) (0) k/uL Sodium (137-145) mmol/L Potassium (3.5-5.1) mmol/L BUN (9-20) mg/dL Glucose (74-99) mg/dL POC Glucose (mg/dL) 239 H (70-110) mg/dL Calcium (8.4-10.2) mg/dL Alkaline Phosphatase (38-126) U/L Total Protein (6.3-8.2) g/dL Albumin (3.5-5.0) g/dL Microbiology - Last 24 Hours (Table) 11/22/24 18:45 Nasal Screen MRSA/MSSA - Final Nasal Swab 11/20/24 22:08 Blood Culture - Preliminary Blood Assessment and Plan Plan: Acute hypoxemic respiratory failure, with diffuse bilateral groundglass pulmonary filtrates. Rule out atypical pneumonia versus CHF/interstitial edema. The patient remains on Airvo at 60 L and FiO2 of 50%. Echocardiogram shows a preserved LV function. CAT scan of the chest shows no evidence of any pulm embolism and diffuse groundglass bilateral pulmonary filtrates. Acute Non-ST segment elevation myocardial infarction. History of coronary artery disease. History of diabetes mellitus type II currently on Levemir insulin History of hypertension. History of gastroesophageal reflux disease. History of chronic lymphocytic leukemia, in remission. History of osteoarthritis. Plan: Titrate oxygen flow to maintain saturation above 90%. Currently on Airvo. Obtain a follow-up chest x-ray in the morning Start the patient on Lasix 40 mg IV every 12 hours IV fluids to KVO IV cefepime as an empiric antibiotic coverage proBNP level was elevated at time of admission. Procalcitonin levels are nonelevated. The viral screen was negative. Legionella urine antigen was negative. CT of the chest was noted Echo was noted Continue rest of the medications Will continue to follow.
[2024-11-24] MEDS: QUEtiapine 25 MG TAB PO SCH (20:02)
[2024-11-24 20:28] LABS: Glucose,Whole Blood 205 mg/dL (70-110)
[2024-11-24] MEDS: INSULIN DETEMIR (LEVEMIR) 100 UNIT/ML SYR SQ SCH (21:11)
[2024-11-25 01:16] LABS: Glucose,Whole Blood 212 mg/dL (70-110)
[2024-11-25 06:23] LABS: Glucose,Whole Blood 200 mg/dL (70-110)
[2024-11-25 07:24] LABS: Basophils % (A) 0 %; Eosinophils % (A) 0 %; HCT 34.5 % (39.0-53.0); HGB 11.4 gm/dL (13.0-17.5); Lymphocytes # (A) 8.6 k/uL (1.0-4.8); Lymphocytes % (A) 51 %; MCH 30.4 pg (25.0-35.0); MCHC 33.1 g/dL (31.0-37.0); MCV 91.8 fL (80.0-100.0); Mean Platelet Volume 8.2; Monocytes # (A) 0.4 k/uL (0-1.0); Monocytes % (A) 3 %; Neutrophils # (A) 7.3 k/uL (1.3-7.7); Neutrophils % (A) 44 %; Platelet Count 158 k/uL (150-450); Poikilocytosis Slight; RBC 3.76 m/uL (4.30-5.90); RDW 14.3 % (11.5-15.5); WBC 16.7 k/uL (3.8-10.6)
[2024-11-25 07:42] LABS: African American GFR (CKD) 60 (>60 ml/min/1.73 sqM); Anion Gap 8 mmol/L; Blood Urea Nitrogen 34 mg/dL (9-20); Calcium 8.6 mg/dL (8.4-10.2); Carbon Dioxide 32 mmol/L (22-30); Chloride 101 mmol/L (98-107); Glucose 189 mg/dL (74-99); Non-African American GFR(CKD) 52 (>60 ml/min/1.73 sqM); Potassium 3.1 mmol/L (3.5-5.1); Sodium 141 mmol/L (137-145)
[2024-11-25 11:38] LABS: Glucose,Whole Blood 387 mg/dL (70-110)
[2024-11-25] MEDS: POTASSIUM CHLORIDE ER 20 MEQ TAB.ER PO STA (11:47)
--- NOTE | 2024-11-25 12:27 | US ---
EXAMINATION TYPE: US kidneys/renal and bladder DATE OF EXAM: 11/25/2024 Exam done portable COMPARISON: CT 2023 CLINICAL INDICATION: Male, 79 years old with history of Angle; TECHNIQUE: Grayscale imaging of the bilateral kidneys and urinary bladder: FINDINGS: EXAM MEASUREMENTS: Right Kidney: 10.0 x 4.5 x 4.6 cm Left Kidney: 10.7 x 5.9 x 5.7 cm Right Kidney: No hydronephrosis or masses seen, inferior pole limited by overlying bowel gas Left Kidney: No hydronephrosis or masses seen, inferior pole limited by overlying bowel gas Bladder: not distended, miller catheter Gallbladder: full of stones There is no evidence for hydronephrosis at this point in time. No nephrolithiasis is seen. No donna s are identified. The urinary bladder is under distended with Miller catheter in place which limits e valuation. Gallbladder is full of stones. No wall thickening or surrounding fluid identified. IMPRESSION: Limited examination due to overlying bowel gas. 1. No evidence for hydronephrosis or nephrolithiasis. 2. Cholelithiasis. [facility], , 11/25/2024 12:25 PM
--- NOTE | 2024-11-25 13:35 | P.PN ---
Subjective Progress Note Date: 11/25/24 79-year-old male with past medical history significant for coronary artery disease, insulin-dependent diabetes mellitus, hypertension presents to the emergency department today due to altered mental status. Patient is unsure of the events surrounding his admission so most of the history is obtained via re cords and hospital staff. Patient was having shortness of breath at home and his called EMS. When EMS arrived to his house he was oriented only to self. He was found to be hypoxic in the low 80s and was placed on supplemental oxygen. Patient denies wearing oxygen at home. Upon arrival to the hospital oxygen saturation had improved and he was AO x 3. He also had an episode of vomiting. Patient reports that he has been feeling sick recently with myalgias, cough productive of greenish sputum, actively being treated for sinus infection. He denies nausea/vomiting, abdominal pain, chest pain, dyspnea, weight loss. 11/22/24 - Seen and examined at bedside. Overnight, patient was more hypoxic, antibiotics were broadened. Now requiring Airvo. 11/23/24 - Seen and examined at bedside. No acute events overnight. Continues to be on Airvo. 11/24/24 - Patient seen and examined at bedside this morning. Overnight the patient became agitated, attempting to get out of his bed and attempting to remove his Airvo. He was given Seroquel 25 mg and was able to calm down. MRSA nares was found to be negative vancomycin was discontinued at this time. 11/25/24 - Patient seen and examined at bedside this morning. No acute events overnight. Continues to be on Airvo with FiO2 of 65%. Kidney/bladder ultrasound completed today, secondary to new onset VERENA, which showed no evidence of hydronephrosis or nephrolithiasis, however did show cholelithiasis. Lisinopril decreased to 20 mg daily. Additionally, CBC today significant WBC 6.7, hemoglobin 11.4, hematocrit 34.5. CMP today significant for potassium 3.1, bicarbonate 32, BUN 34, creatinine 1.33. REVIEW OF SYSTEMS: Pertinent positives and negatives noted in HPI. Physical Exam: General: nontoxic, no distress, appears at stated age Derm: warm, dry, intact Head: atraumatic, normocephalic, symmetric Eyes: EOMI, anicteric sclera Cardiovascular: S1 S2 reg, no murmur, rubs, or gallops Lungs: Diminished breath sounds bilaterally, Mild crackles audible in bilateral bases, on high flow nasal cannula. Abdominal: soft, non-tender to palpataion, no appreciable organomegaly Extremities: no gross muscle atrophy, no edema, no contractures Neuro: Alert, Oriented, CNII-XII grossly intact, gait normal Psych: well appearing, appropriate affect Data Received Today: Labs: WBC 6.7, hemoglobin 11.4, hematocrit 34.5, platelet 158; sodium 141, potassium 3.1, chloride 101, bicarbonate 32, BUN 34, creatinine 1.33, calcium 8.7 Imagining: kidney/bladder ultrasound completed today which showed no evidence of hydronephrosis or nephrolithiasis, however did show cholelithiasis. Assessment and plan 79-year-old male with past medical history significant for coronary artery disease, insulin-dependent diabetes mellitus, hypertension presents to the emergency department today due to altered mental status. #Severe ARDS #Acute hypoxic respiratory failure #Multifocal pneumonia #Acute NSTEMI -P:F ratio 68 -Continue to wean oxygen, patient currently on Airvo -On IV cefepime 2 g every 8 hours -MRSA nares negative, discontinue vancomycin -I will start steroids given severe pneumonia, started on hydrocortisone 50 IV every 6 hours -Pulmonology following -Continue aspirin 81 mg, atorvastatin 80 mg, Plavix 75 mg daily -Recommend patient undergoes outpatient Lexiscan nuclear stress test upon discharge and outpatient follow-up with cardiology; if Lexiscan stress test is not positive for any infarct or ischemia, may consider stopping Plavix #Acute kidney injury #Hypokalemia #Contraction alkalosis -kidney/bladder ultrasound completed today which showed no evidence of hydronephrosis or nephrolithiasis, however did show cholelithiasis -Decrease lisinopril to 20 mg daily -Decreased Lasix to 40 mg daily -Gave 40 mEq potassium chloride -Continue monitor CMP #Acute onset delirium -Started on Seroquel 25 mg daily #Diabetes #Hyperglycemia -Continue Levemir 15 units nightly, continue sliding scale insulin, monitor for hypoglycemia #Right plantar foot ulcer -Wound care following #Hyperbilirubinemia -no right upper quadrant pain #Hypertension -Continue to monitor vital signs Chronic: Hypertension History of CAD History of CLL, in remission DVT ppx: Heparin 5000 units subcu Code status: Full code F: None E: Replete as needed N: Heart healthy diet A: Ambulatory Anticipated discharge place: Pending clinical course Anticipated discharge time: Pending clinical course Dictation was produced using [employer] dictation software. please excuse any grammatical, word or spelling errors. Patient is severely ill, needs close monitoring. Prognosis guarded. I have seen and evaluated the patient today. Discussed with the resident and agree with the residents finding and plan as documented in the resident's note. Changes highlighted in blue font. Objective - Vital Signs Vital signs: Vital Signs Temp 97.6 F 11/25/24 11:45 Pulse 50 L 11/25/24 11:45 Resp 19 11/25/24 11:45 BP 123/49 11/25/24 11:45 Pulse Ox 100 11/25/24 11:45 FiO2 65 11/25/24 12:18 Intake & Output 11/24/24 11/25/24 11/25/24 18:59 06:59 18:59 Intake Total 240 Output Total 1465 1525 400 Balance -1465 -1525 -160 Weight 123.5 kg Intake: Oral 240 Output: Urine 1465 1525 400 Other: Voiding Method Indwelling Catheter Indwelling Catheter Indwelling Catheter # Bowel Movements 1 - Labs CBC & Chem 7: 11/25/24 06:49 11/25/24 06:49 Labs: Abnormal Lab Results - Last 24 Hours (Table) 11/24/24 11/24/24 11/25/24 Range/Units 16:49 20:05 01:15 WBC (3.8-10.6) k/uL RBC (4.30-5.90) m/uL Hgb (13.0-17.5) gm/dL Hct (39.0-53.0) % Potassium (3.5-5.1) mmol/L Carbon Dioxide (22-30) mmol/L BUN (9-20) mg/dL Creatinine (0.66-1.25) mg/dL Glucose (74-99) mg/dL POC Glucose (mg/dL) 199 H 205 H 212 H (70-110) mg/dL 11/25/24 11/25/24 11/25/24 Range/Units 06:10 06:49 06:49 WBC 16.7 H (3.8-10.6) k/uL RBC 3.76 L (4.30-5.90) m/uL Hgb 11.4 L (13.0-17.5) gm/dL Hct 34.5 L (39.0-53.0) % Potassium 3.1 L (3.5-5.1) mmol/L Carbon Dioxide 32 H (22-30) mmol/L BUN 34 H (9-20) mg/dL Creatinine 1.33 H (0.66-1.25) mg/dL Glucose 189 H (74-99) mg/dL POC Glucose (mg/dL) 200 H (70-110) mg/dL 11/25/24 Range/Units 11:33 WBC (3.8-10.6) k/uL RBC (4.30-5.90) m/uL Hgb (13.0-17.5) gm/dL Hct (39.0-53.0) % Potassium (3.5-5.1) mmol/L Carbon Dioxide (22-30) mmol/L BUN (9-20) mg/dL Creatinine (0.66-1.25) mg/dL Glucose (74-99) mg/dL POC Glucose (mg/dL) 387 H (70-110) mg/dL Microbiology - Last 24 Hours (Table) 11/22/24 18:45 Nasal Screen MRSA/MSSA - Final Nasal Swab
[2024-11-25 15:30] LABS: Crenated RBC Present
[2024-11-25 16:37] LABS: Glucose,Whole Blood 388 mg/dL (70-110)
[2024-11-25] MEDS: SUCRALFATE 1 GM TAB PO SCH (16:42)
--- NOTE | 2024-11-25 18:51 | P.PN ---
Subjective Progress Note Date: 11/25/24 79-year-old male who presented to the emergency department, on November 20, complaining of nausea, vomiting, diarrhea, and mental status changes. The patient was brought into the emergency department, by EMS, and apparently he was quite confused, and disoriented, when they initially evaluated him. He a pparently was having GI episodes, including vomiting, nausea, and diarrhea. He denies having any chest pain or shortness of breath although his saturations were in the low 80s. He was placed on oxygen therapy, and brought into the hospital. When he was in the ER, he was apparently alert and oriented x 3. He was feeling a bit short of breath. We were consulted today, because the patient's respiratory status has declined, and he is currently on Airvo, with settings of 60 L/min, and an FiO2 of 75%. The patient was thought to have a non-ST segment elevation myocardial infarction, and pneumonia. He was on IV heparin, and saline at 20 cc an hour, as well as vancomycin, and cefepime. His procalcitonin level was 0.21. Current laboratory data includes a white count of 16.9, hemoglobin 11.9, hematocrit 35.5, and a platelet count of 155,000. A blood gas done yesterday shows a pO2 of 62, pCO2 42, and a pH of 7.41. This apparently was on 100% oxygen. Sodium 135, potassium 3.3, chloride 95, CO2 30, anion gap 10, BUN 19, creatinine 1.06. Glucose 296. Hemoglobin A1c was 6.9. Albumin was 3.5. N-terminal proBNP was 2750. Blood cultures were negative. Chest x-ray showed bilateral multifocal airspace opacities, which have improved. Progress note dated November 23, 2024. 79-year-old male seen in consultation yesterday. Please see my note above. The patient is seen today in room 369. He continues on Airvo, 60 L/min and FiO2 of 75%. In addition, the patient continues on cefepime and vancomycin, his procalcitonin level was normal at 0.21. He is also on IV heparin. He states he feels about the same today as he did yesterday, no better, and no worse. White count 18.7, hemoglobin 9.3, hematocrit 33.4, platelet count 156,000. PTT is 56.4. Sodium 136, potassium 3.5, chlorides 100, CO2 29, BUN 24, creatinine 0.93. Glucose 171. Calcium 8.6. Bilirubin 1.5. Albumin 3.2. On 11/24/2024, the patient is being seen for a follow-up. The patient remains quite hypoxic. On today's evaluation, the patient remains on Airvo at 60 L with FiO2 of 70%. The chest x-ray from 11/21/2024 showed improved aeration of both lungs with persistent multifocal airspace opacities. The patient's blood work showed a procalcitonin level of 0.2 at the time of admission x 2 and a proBNP le bryson was 2750. On today's blood work, sodium levels at 135, potassium level is 3.4, BUN 23 with a creatinine of 0.8. LFTs are essentially within normal limits. The patient remains on IV cefepime. The patient will be started on IV Lasix. The patient is also on DuoNeb nebulized treatments [id number], IV hydrocortisone, Levemir insulin 15 units at bedtime and the patient is on metoprolol 25 mg p.o. twice a day. Rest of the medications remain unchanged. Echocardiogram was done on 11/21/2024 indicating a ejection fraction of 50 to 55%, inferolateral wall hypokinesis, no significant valvular abnormalities. The CTA of the chest done on 11/20/2024 revealed no pulmonary embolism and diffuse patchy groundglass pulmonary opacities could relate to interstitial edema versus atypical pulmonary infection and the patient also has evidence of cholelithiasis. The viral screen was negative and Legionella urine antigen was negative at the time of admission. Mental status is appropriate at this point. On 11/25/2024, the patient is still hypoxic, maintained on Airvo at 60 L with an FiO2 of 65%. No significant improvement in oxygenation over the past 24 hours. Noted the patient was started on diuretics yesterday. He remains on IV Lasix and the dose has been switched to 40 mg every 24 hours. Fluid balance -2.9 L over the past 24 hours. The patient has a white cell count of 16.7 with a hemoglobin 11.4 and a platelet count of 158. BUN 34 and the creatinine is up to 1.3. Sodium levels at 141. The patient remains on DuoNeb nebulized treatments [id number]. Remains on IV cefepime. Remains on IV Lasix 40 mg every 24 hours. Rest of the medications remain essentially unchanged. Ultrasound of the kidneys and bladder showed no evidence of any hydronephrosis. The most recent chest x-ray is from 11/22/2024 and it shows improved aeration of the lungs with persistent multifocal airspace opacities. A follow-up chest x-ray is to be obtained for tomorrow.Echocardiogram was done on 11/21/2024 indicating a ejection fraction of 50 to 55%, inferolateral wall hypokinesis, no significant valvular abnormalities. The CTA of the chest done on 11/20/2024 revealed no pulmonary embolism and diffuse patchy groundglass pulmonary opacities could relate to interstitial edema versus atypical pulmonary infection and the patient also has evidence of cholelithiasis. The viral screen was negative and Legionella urine antigen was negative at the time of admission. Objective - Vital Signs Vital signs: Vital Signs Temp 97.6 F 11/25/24 11:45 Pulse 50 L 11/25/24 11:45 Resp 19 11/25/24 11:45 BP 123/49 11/25/24 11:45 Pulse Ox 100 11/25/24 11:45 FiO2 65 11/25/24 12:18 Intake & Output 11/24/24 11/25/24 11/25/24 18:59 06:59 18:59 Intake Total 240 Output Total 1465 1525 400 Balance -1465 -1525 -160 Weight 123.5 kg Intake: Oral 240 Output: Urine 1465 1525 400 Other: Voiding Method Indwelling Catheter Indwelling Catheter Indwelling Catheter # Bowel Movements 1 1 - Exam No acute distress, oriented 3. The patient is currently on Airvo. Settings are 50 L/min with an FiO2 of 70 %. The patient is able to speak in full sentences without difficulty. HEENT examination is grossly unremarkable. Mucous membranes are moist. No oral lesions. Neck supple. Full range of motion. No adenopathy thyromegaly or neck vein distention. Cardiovascular examination reveals regular rhythm rate. S1-S2 normal. No S3 or S4. No discernible murmur noted. Heart sounds are distant. Lungs reveal mild scattered rhonchi. No wheezes. No crackles. Breath sounds equal bilaterally. Abdomen soft bowel sounds are heard. No masses or tenderness. Extremities are intact. No cyanosis clubbing or edema. Skin is without rash or lesion. Neurologic examination is brief but nonfocal. - Labs CBC & Chem 7: 11/25/24 06:49 11/25/24 06:49 Labs: Abnormal Lab Results - Last 24 Hours (Table) 11/24/24 11/24/24 11/25/24 Range/Units 16:49 20:05 01:15 WBC (3.8-10.6) k/uL RBC (4.30-5.90) m/uL Hgb (13.0-17.5) gm/dL Hct (39.0-53.0) % Potassium (3.5-5.1) mmol/L Carbon Dioxide (22-30) mmol/L BUN (9-20) mg/dL Creatinine (0.66-1.25) mg/dL Glucose (74-99) mg/dL POC Glucose (mg/dL) 199 H 205 H 212 H (70-110) mg/dL 11/25/24 11/25/24 11/25/24 Range/Units 06:10 06:49 06:49 WBC 16.7 H (3.8-10.6) k/uL RBC 3.76 L (4.30-5.90) m/uL Hgb 11.4 L (13.0-17.5) gm/dL Hct 34.5 L (39.0-53.0) % Potassium 3.1 L (3.5-5.1) mmol/L Carbon Dioxide 32 H (22-30) mmol/L BUN 34 H (9-20) mg/dL Creatinine 1.33 H (0.66-1.25) mg/dL Glucose 189 H (74-99) mg/dL POC Glucose (mg/dL) 200 H (70-110) mg/dL 11/25/24 Range/Units 11:33 WBC (3.8-10.6) k/uL RBC (4.30-5.90) m/uL Hgb (13.0-17.5) gm/dL Hct (39.0-53.0) % Potassium (3.5-5.1) mmol/L Carbon Dioxide (22-30) mmol/L BUN (9-20) mg/dL Creatinine (0.66-1.25) mg/dL Glucose (74-99) mg/dL POC Glucose (mg/dL) 387 H (70-110) mg/dL Microbiology - Last 24 Hours (Table) 11/22/24 18:45 Nasal Screen MRSA/MSSA - Final Nasal Swab Assessment and Plan Plan: Acute hypoxemic respiratory failure, with diffuse bilateral groundglass pul monary filtrates. Rule out atypical pneumonia versus CHF/interstitial edema. The patient remains on Airvo at 50 L and FiO2 of 70 %. Echocardiogram shows a preserved LV function. CAT scan of the chest shows no evidence of any pulm embolism and diffuse groundglass bilateral pulmonary filtrates. Acute Non-ST segment elevation myocardial infarction. History of coronary artery disease. History of diabetes mellitus type II currently on Levemir insulin History of hypertension. History of gastroesophageal reflux disease. History of chronic lymphocytic leukemia, in remission. History of osteoarthritis. Plan: Titrate oxygen flow to maintain saturation above 90%. Currently on Airvo. Obtain a follow-up chest x-ray in the morning Start the patient on Lasix 40 mg IV e every 24 hours and the patient remains negative fluid balance IV fluids to KVO Monitor renal function Ultrasound the kidneys shows no evidence of any hydronephrosis IV cefepime as an empiric antibiotic coverage proBNP level was elevated at time of admission. Procalcitonin levels are nonelevated. The viral screen was negative. Legionella urine antigen was negative. CT of the chest was noted Echo was noted Continue rest of the medications Will continue to follow. Time with Patient: Greater than 30
[2024-11-25 20:23] LABS: Glucose,Whole Blood 292 mg/dL (70-110)
[2024-11-25] MEDS: CEFEPIME 2 GM in SODIUM CHLORIDE 0.9% 100 ML IVPB SCH (20:58)
[2024-11-26 06:03] LABS: Glucose,Whole Blood 234 mg/dL (70-110)
[2024-11-26] MEDS: FUROSEMIDE 10 MG/ML 4 ML VIAL IV SCH (07:37)
[2024-11-26] MEDS: lisinopriL 20 MG TAB PO SCH (07:38)
--- NOTE | 2024-11-26 08:09 | XR ---
EXAMINATION TYPE: XR chest 1V DATE OF EXAM: 11/26/2024 6:25 AM COMPARISON: Chest radiographs from 11/22/2024 TECHNIQUE: XR chest 1V Frontal view of the chest. CLINICAL INDICATION:Male, 79 years old with history of Hypoxic respiratory failure; FINDINGS: Lungs/Pleura: No pleural effusion or pneumothorax. Similar scattered airspace opacities throughout th e lungs. Heart/mediastinum: Cardiomediastinal silhouette is enlarged and stable. Musculoskeletal: No acute osseous pathology. IMPRESSION: Similar scattered airspace opacities throughout the lungs which may represent pulmonary edema and/or pneumonia. [facility], , 11/26/2024 8:07 AM
[2024-11-26 08:39] LABS: Basophils # (A) 0.1 k/uL (0-0.2); Basophils % (A) 0 %; Eosinophils % (A) 0 %; HCT 33.9 % (39.0-53.0); HGB 11.3 gm/dL (13.0-17.5); Lymphocytes # (A) 9.1 k/uL (1.0-4.8); Lymphocytes % (A) 48 %; MCH 30.9 pg (25.0-35.0); MCHC 33.3 g/dL (31.0-37.0); MCV 92.7 fL (80.0-100.0); Mean Platelet Volume 8.6; Monocytes # (A) 0.6 k/uL (0-1.0); Monocytes % (A) 3 %; Neutrophils % (A) 47 %; Platelet Count 165 k/uL (150-450); Poikilocytosis Slight; RBC 3.66 m/uL (4.30-5.90); RDW 14.3 % (11.5-15.5)
[2024-11-26 08:59] LABS: African American GFR (CKD) 67 (>60 ml/min/1.73 sqM); Anion Gap 11 mmol/L; Blood Urea Nitrogen 46 mg/dL (9-20); Calcium 8.8 mg/dL (8.4-10.2); Carbon Dioxide 29 mmol/L (22-30); Chloride 99 mmol/L (98-107); Glucose 234 mg/dL (74-99); Non-African American GFR(CKD) 58 (>60 ml/min/1.73 sqM); Sodium 139 mmol/L (137-145)
[2024-11-26 09:01] LABS: Potassium 4.2 mmol/L (3.5-5.1)
[2024-11-26 09:32] LABS: Crenated RBC Present
--- NOTE | 2024-11-26 11:14 | P.PN ---
Subjective Progress Note Date: 11/26/24 79-year-old male with past medical history significant for coronary artery disease, insulin-dependent diabetes mellitus, hypertension presents to the emergency department today due to altered mental status. Patient is unsure of the events surrounding his admission so most of the history is obtained via re cords and hospital staff. Patient was having shortness of breath at home and his called EMS. When EMS arrived to his house he was oriented only to self. He was found to be hypoxic in the low 80s and was placed on supplemental oxygen. Patient denies wearing oxygen at home. Upon arrival to the hospital oxygen saturation had improved and he was AO x 3. He also had an episode of vomiting. Patient reports that he has been feeling sick recently with myalgias, cough productive of greenish sputum, actively being treated for sinus infection. He denies nausea/vomiting, abdominal pain, chest pain, dyspnea, weight loss. 11/22/24 - Seen and examined at bedside. Overnight, patient was more hypoxic, antibiotics were broadened. Now requiring Airvo. 11/23/24 - Seen and examined at bedside. No acute events overnight. Continues to be on Airvo. 11/24/24 - Patient seen and examined at bedside this morning. Overnight the patient became agitated, attempting to get out of his bed and attempting to remove his Airvo. He was given Seroquel 25 mg and was able to calm down. MRSA nares was found to be negative vancomycin was discontinued at this time. 11/25/24 - Patient seen and examined at bedside this morning. No acute events overnight. Continues to be on Airvo with FiO2 of 65%. Kidney/bladder ultrasound completed today, secondary to new onset VERENA, which showed no evidence of hydronephrosis or nephrolithiasis, however did show cholelithiasis. Lisinopril decreased to 20 mg daily. Additionally, CBC today significant WBC 6.7, hemoglobin 11.4, hematocrit 34.5. CMP today significant for potassium 3.1, bicarbonate 32, BUN 34, creatinine 1.33. 11/26/24 - Patient seen and examined at bedside this morning. No acute events overnight. Continues to be on Airvo with FiO2 50%. SpO2 this morning 94%. He is much more alert and awake than he has been previously. States that this morning he is feeling significantly better than he had been in previous days, when he first woke up he did not feel great however in the time since then he feels well. He notes having an increasing appetite, however becomes full very quickly. REVIEW OF SYSTEMS: Pertinent positives and negatives noted in HPI. Physical Exam: General: nontoxic, no distress, appears at stated age Derm: warm, dry, intact Head: atraumatic, normocephalic, symmetric Eyes: EOMI, anicteric sclera Cardiovascular: S1 S2 reg, no murmur, rubs, or gallops Lungs: Diminished breath sounds bilaterally, Mild crackles audible in bilateral bases, on high flow nasal cannula. Abdominal: soft, non-tender to palpataion, no appreciable organomegaly Extremities: no gross muscle atrophy, no edema, no contractures Neuro: Alert, Oriented, CNII-XII grossly intact, gait normal Psych: well appearing, appropriate affect Data Received Today: Labs: CBC and BMP significant WBC 19, RBC 3.66, Hg 11.3, Hct 33.9, BUN 46, glu 234. Imagining: CXR shows bilateral airspace opacities similar to previous CXR. Assessment and plan 79-year-old male with past medical history significant for coronary artery disease, insulin-dependent diabetes mellitus, hypertension presents to the emergency department today due to altered mental status. #Severe ARDS #Acute hypoxic respiratory failure #Multifocal pneumonia #Acute NSTEMI -Continue to wean oxygen, patient currently on Airvo -On IV cefepime 2 g every 8 hours (day 5 today) -MRSA nares negative, discontinue vancomycin -I will start steroids given severe pneumonia, started on hydrocortisone 50 IV every 6 hours -Pulmonology following -Continue aspirin 81 mg, atorvastatin 80 mg, Plavix 75 mg daily #Acute kidney injury, improving #Hypokalemia, resolved #Contraction alkalosis, improving -Decrease lisinopril to 20 mg daily -Decreased Lasix to 40 mg daily -Continue monitor CMP #Acute onset delirium -Started on Seroquel 25 mg daily #Debility -PT/OT consulted #Diabetes #Hyperglycemia -Continue Levemir 15 units nightly, continue sliding scale insulin, monitor for hypoglycemia #Right plantar foot ulcer -Wound care following #Hyperbilirubinemia, improved -No right upper quadrant pain #Hypertension -Continue to monitor vital signs Chronic: Hypertension History of CAD History of CLL, in remission DVT ppx: Heparin 5000 units subcu Code status: Full code F: None E: Replete as needed N: Heart healthy diet A: Ambulatory Anticipated discharge place: Pending clinical course Anticipated discharge time: Pending clinical course Dictation was produced using [employer] dictation software. please excuse any grammatical, word or spelling errors. I have seen and evaluated the patient today. Discussed with the resident and agree with the residents finding and plan as documented in the resident's note. Changes highlighted as below. Objective - Vital Signs Vital signs: Vital Signs Temp 97.7 F 11/26/24 07:10 Pulse 53 L 11/26/24 07:10 Resp 19 11/26/24 07:10 BP 141/56 11/26/24 07:10 Pulse Ox 94 L 11/26/24 08:20 FiO2 55 11/26/24 08:20 Intake & Output 11/25/24 11/26/24 11/26/24 18:59 06:59 18:59 Intake Total 240 400 Output Total 400 200 175 Balance -160 -200 225 Weight 123.5 kg 123.5 kg Intake: Oral 240 400 Output: Urine 400 200 175 Other: Voiding Method Indwelling Catheter Indwelling Catheter Indwelling Catheter # Bowel Movements 1 2 0 - Labs CBC & Chem 7: 11/26/24 08:16 11/26/24 08:16 Labs: Abnormal Lab Results - Last 24 Hours (Table) 11/25/24 11/25/24 11/25/24 Range/Units 06:49 11:33 16:35 Lymphocytes # 8.6 H (1.0-4.8) k/uL POC Glucose (mg/dL) 387 H 388 H (70-110) mg/dL 11/25/24 11/26/24 Range/Units 20:22 06:02 Lymphocytes # (1.0-4.8) k/uL POC Glucose (mg/dL) 292 H 234 H (70-110) mg/dL Microbiology - Last 24 Hours (Table) 11/20/24 22:08 Blood Culture - Final Blood
[2024-11-26 11:28] LABS: Glucose,Whole Blood 314 mg/dL (70-110)
--- NOTE | 2024-11-26 11:59 | CDI ---
Documentation Clarification Form Date: 11/26/2024 11:35:36 AM From: Waleska Power RN CCDS Phone: [phone] Admit Date: 11/20/2024 09:33:00 PM Patient Name: Dung Marquez Visit Number: [id number] Discharge Date: ATTENTION: The Clinical Documentation Specialists (CDI) and [facility] Coding Staff appreciate your assistance in clarifying documentation. Please respond to the clarification below the line at the bottom and electronically sign. The CDI & [facility] Coding staff will review the response and follow-up if needed. Please note: Queries are made part of the Legal Health Record. If you have any questions, please contact the author of this message via ITS. Doctor: Chinedu Wilkins MD Sepsis is documented in HP, 11/21 but is not noted in subsequent documentation. Clarification is requested. History/Risk Factors: 79 year old male presents to the ED for altered mental status. Patient is having shortness of breath at home and his called EMS. The patient was found to be hypoxic in the low 80s denies home oxygen use. Reported that the patient has been feeling sick recently with myalgias, cough productive of greenish sputum, actively treated for sinus infection. Medical history; CAD, DM and HTN. 11/21, HP. Clinical Indicators: HP, 11/21: Sepsis, secondary to pneumonia. Cardiology Consult, 11/21: NSTEMI II secondary to pneumonia and sepsis. Labs, 11/20: Wbc 13.2; Neutrophils 7.50; Plasma lactic acid hugh 1.0 Lab, 11/21: Procalcitonin 0.21 CXR, 11/20: No acute cardiopulmonary disease/process. CHESTAG, 11/20: Diffuse patchy ground glass pulmonary opacities suggests atypical pulmonary infection. Treatment: 11/20 Azithromycin IVPB X 1; 11/20 Ceftriaxone IVPB x 1; 11/21 Zithromax po daily x 2 doses. 11/21 Ceftriaxone vipb x 1; 11/22 11/25 Cefepime IVPB Q8H; 11/22 Vancomycin IVPB x 1; 11/22 11/24 Vancomycin IVPB Q12H; 11/25 Cefepime IVPB Q12H Fluids: 11/20:0.9NS 500cc IV x 1; Please clarify if the Sepsis is: [ ] Sepsis confirmed, remains under treatment [ ] Sepsis confirmed, resolved [ ] Sepsis ruled out [ ] Other condition, please specify [ ] Unable to determine SIRS Criteria: 2 or more of the following may indicate SIRS Temperature < 96.8F (36C) or > 101.0F (38.3C) Heart Rate > 90 bpm Respiratory Rate > 20 breaths/min or PaCO2 < 32 mmHg White Blood Cell Count > 12,000 or < 4,000 cells/mm3 or > 10% bands Answered in progress note 11/30/2024 Dr. Wilkins Acute hypoxic respiratory failure and sepsis due to multifocal PNA and ARDS: (Template Last Revised: December 2020) MTDD
[2024-11-26 16:31] LABS: Glucose,Whole Blood 334 mg/dL (70-110)
--- NOTE | 2024-11-26 18:26 | P.PN ---
Subjective Progress Note Date: 11/26/24 79-year-old male who presented to the emergency department, on November 20, complaining of nausea, vomiting, diarrhea, and mental status changes. The patient was brought into the emergency department, by EMS, and apparently he was quite confused, and disoriented, when they initially evaluated him. He a pparently was having GI episodes, including vomiting, nausea, and diarrhea. He denies having any chest pain or shortness of breath although his saturations were in the low 80s. He was placed on oxygen therapy, and brought into the hospital. When he was in the ER, he was apparently alert and oriented x 3. He was feeling a bit short of breath. We were consulted today, because the patient's respiratory status has declined, and he is currently on Airvo, with settings of 60 L/min, and an FiO2 of 75%. The patient was thought to have a non-ST segment elevation myocardial infarction, and pneumonia. He was on IV heparin, and saline at 20 cc an hour, as well as vancomycin, and cefepime. His procalcitonin level was 0.21. Current laboratory data includes a white count of 16.9, hemoglobin 11.9, hematocrit 35.5, and a platelet count of 155,000. A blood gas done yesterday shows a pO2 of 62, pCO2 42, and a pH of 7.41. This apparently was on 100% oxygen. Sodium 135, potassium 3.3, chloride 95, CO2 30, anion gap 10, BUN 19, creatinine 1.06. Glucose 296. Hemoglobin A1c was 6.9. Albumin was 3.5. N-terminal proBNP was 2750. Blood cultures were negative. Chest x-ray showed bilateral multifocal airspace opacities, which have improved. Progress note dated November 23, 2024. 79-year-old male seen in consultation yesterday. Please see my note above. The patient is seen today in room 369. He continues on Airvo, 60 L/min and FiO2 of 75%. In addition, the patient continues on cefepime and vancomycin, his procalcitonin level was normal at 0.21. He is also on IV heparin. He states he feels about the same today as he did yesterday, no better, and no worse. White count 18.7, hemoglobin 9.3, hematocrit 33.4, platelet count 156,000. PTT is 56.4. Sodium 136, potassium 3.5, chlorides 100, CO2 29, BUN 24, creatinine 0.93. Glucose 171. Calcium 8.6. Bilirubin 1.5. Albumin 3.2. On 11/24/2024, the patient is being seen for a follow-up. The patient remains quite hypoxic. On today's evaluation, the patient remains on Airvo at 60 L with FiO2 of 70%. The chest x-ray from 11/21/2024 showed improved aeration of both lungs with persistent multifocal airspace opacities. The patient's blood work showed a procalcitonin level of 0.2 at the time of admission x 2 and a proBNP le bryson was 2750. On today's blood work, sodium levels at 135, potassium level is 3.4, BUN 23 with a creatinine of 0.8. LFTs are essentially within normal limits. The patient remains on IV cefepime. The patient will be started on IV Lasix. The patient is also on DuoNeb nebulized treatments [id number], IV hydrocortisone, Levemir insulin 15 units at bedtime and the patient is on metoprolol 25 mg p.o. twice a day. Rest of the medications remain unchanged. Echocardiogram was done on 11/21/2024 indicating a ejection fraction of 50 to 55%, inferolateral wall hypokinesis, no significant valvular abnormalities. The CTA of the chest done on 11/20/2024 revealed no pulmonary embolism and diffuse patchy groundglass pulmonary opacities could relate to interstitial edema versus atypical pulmonary infection and the patient also has evidence of cholelithiasis. The viral screen was negative and Legionella urine antigen was negative at the time of admission. Mental status is appropriate at this point. On 11/25/2024, the patient is still hypoxic, maintained on Airvo at 60 L with an FiO2 of 65%. No significant improvement in oxygenation over the past 24 hours. Noted the patient was started on diuretics yesterday. He remains on IV Lasix and the dose has been switched to 40 mg every 24 hours. Fluid balance -2.9 L over the past 24 hours. The patient has a white cell count of 16.7 with a hemoglobin 11.4 and a platelet count of 158. BUN 34 and the creatinine is up to 1.3. Sodium levels at 141. The patient remains on DuoNeb nebulized treatments [id number]. Remains on IV cefepime. Remains on IV Lasix 40 mg every 24 hours. Rest of the medications remain essentially unchanged. Ultrasound of the kidneys and bladder showed no evidence of any hydronephrosis. The most recent chest x-ray is from 11/22/2024 and it shows improved aeration of the lungs with persistent multifocal airspace opacities. A follow-up chest x-ray is to be obtained for tomorrow.Echocardiogram was done on 11/21/2024 indicating a ejection fraction of 50 to 55%, inferolateral wall hypokinesis, no significant valvular abnormalities. The CTA of the chest done on 11/20/2024 revealed no pulmonary embolism and diffuse patchy groundglass pulmonary opacities could relate to interstitial edema versus atypical pulmonary infection and the patient also has evidence of cholelithiasis. The viral screen was negative and Legionella urine antigen was negative at the time of admission. On 11/26/2024, patient is being seen for a follow-up. This patient remains hypoxic. As mentioned, the patient has developed diffuse groundglass bilateral pulmonary filtrates. Suspected interstitial edema and based on that the patient was started on diuretics. The patient remains on Lasix with a negative fluid balance of 2.9 L and -360 cc over the past 24 hours. Remains on IV Lasix at a dose of 40 mg on a daily basis. On today's blood work, the patient's BUN is 46 with a creatinine of 1.2. Sodium levels at 139 and the potassium level is at 4.2. The patient has a white cell count of 19 with a hemoglobin of 4.3 and a platelet count of 165. He remains on Airvo. The current settings are 60 L with an FiO2 of 55%. A follow-up chest x-ray was obtained today and the chest x-ray is showing scattered airspace opacities throughout the lung and this could essentially present pulmonary edema versus atypical pneumonia. The patient has cardiomegaly. The patient remains on DuoNeb nebulized treatments around-the- clock. The patient remains on IV cefepime. The patient remains on IV hydrocortisone. Remains on Levemir insulin 15 units at bedtime and insulin scale coverage. Remains on metoprolol 25 mg p.o. daily. He is able to sit up on a chair. Using incentive spirometer. Objective - Vital Signs Vital signs: Vital Signs Temp 97.9 F 11/26/24 11:10 Pulse 52 L 11/26/24 11:10 Resp 18 11/26/24 11:10 BP 134/57 11/26/24 11:10 Pulse Ox 97 11/26/24 11:10 FiO2 55 11/26/24 13:04 Intake & Output 11/25/24 11/26/24 11/26/24 18:59 06:59 18:59 Intake Total 240 518 Output Total 400 200 175 Balance -160 -200 343 Weight 123.5 kg 123.5 kg Intake: Oral 240 518 Output: Urine 400 200 175 Other: Voiding Method Indwelling Catheter Indwelling Catheter Indwelling Catheter # Bowel Movements 1 2 0 - Exam No acute distress, oriented 3. The patient is currently on Airvo. Settings are 60 L and FiO2 of 55%. The patient is able to speak in full sentences without difficulty. HEENT examination is grossly unremarkable. Mucous membranes are moist. No oral lesions. Neck supple. Full range of motion. No adenopathy thyromegaly or neck vein distention. Cardiovascular examination reveals regular rhythm rate. S1-S2 normal. No S3 or S4. No discernible murmur noted. Heart sounds are distant. Lungs reveal mild scattered rhonchi. No wheezes. Bibasilar crackles are still present. Breath sounds equal bilaterally. Abdomen soft bowel sounds are heard. No masses or tenderness. Extremities are intact. No cyanosis clubbing or edema. Skin is without rash or lesion. Neurologic examination is brief but nonfocal. - Labs CBC & Chem 7: 11/26/24 08:16 11/26/24 08:16 Labs: Abnormal Lab Results - Last 24 Hours (Table) 11/25/24 11/25/24 11/25/24 Range/Units 06:49 16:35 20:22 WBC (3.8-10.6) k/uL RBC (4.30-5.90) m/uL Hgb (13.0-17.5) gm/dL Hct (39.0-53.0) % Neutrophils # (1.3-7.7) k/uL Lymphocytes # 8.6 H (1.0-4.8) k/uL BUN (9-20) mg/dL Glucose (74-99) mg/dL POC Glucose (mg/dL) 388 H 292 H (70-110) mg/dL 11/26/24 11/26/24 11/26/24 Range/Units 06:02 08:16 08:16 WBC 19.0 H (3.8-10.6) k/uL RBC 3.66 L (4.30-5.90) m/uL Hgb 11.3 L (13.0-17.5) gm/dL Hct 33.9 L (39.0-53.0) % Neutrophils # 9.0 H (1.3-7.7) k/uL Lymphocytes # 9.1 H (1.0-4.8) k/uL BUN 46 H (9-20) mg/dL Glucose 234 H (74-99) mg/dL POC Glucose (mg/dL) 234 H (70-110) mg/dL 11/26/24 Range/Units 11:26 WBC (3.8-10.6) k/uL RBC (4.30-5.90) m/uL Hgb (13.0-17.5) gm/dL Hct (39.0-53.0) % Neutrophils # (1.3-7.7) k/uL Lymphocytes # (1.0-4.8) k/uL BUN (9-20) mg/dL Glucose (74-99) mg/dL POC Glucose (mg/dL) 314 H (70-110) mg/dL Microbiology - Last 24 Hours (Table) 11/20/24 22:08 Blood Culture - Final Blood Assessment and Plan Plan: Acute hypoxemic respiratory failure, with diffuse bilateral groundglass pulmonary filtrates. Rule out atypical pneumonia versus CHF/interstitial edema. The patient remains on Airvo at 60 L with FiO2 of 55 %. Echocardiogram shows a preserved LV function. CAT scan of the chest shows no evidence of any pulm embolism and diffuse groundglass bilateral pulmonary filtrates. Chest x-ray shows unchanged the patient is scattered interstitial pulmonary filtrates bilaterally. Consider interstitial edema versus atypical pneumonia. Remains on IV Lasix. Negative fluid balance. Acute kidney injury, improving Acute Non-ST segment elevation myocardial infarction. coronary artery disease. History of diabetes mellitus type II currently on Levemir insulin History of hypertension. History of gastroesophageal reflux disease. History of chronic lymphocytic leukemia, in remission. History of osteoarthritis. Plan: Titrate oxygen flow to maintain saturation above 90%. Currently on Airvo. Follow-up chest x-ray from today was noted Continue Lasix 40 mg IV e every 24 hours and the patient remains negative fluid balance IV fluids to KVO Monitor renal function Ultrasound the kidneys shows no evidence of any hydronephrosis IV cefepime as an empiric antibiotic coverage Discontinue hydrocortisone proBNP level was elevated at time of admission. Procalcitonin levels are nonelevated. The viral screen was negative. Legionella urine antigen was negative. CT of the chest was noted Echo was noted Continue rest of the medications Repeat chest x-ray in a.m. Will continue to follow. Time with Patient: Greater than 30
[2024-11-26 20:17] LABS: Glucose,Whole Blood 304 mg/dL (70-110)
[2024-11-27 06:14] LABS: Glucose,Whole Blood 190 mg/dL (70-110)
[2024-11-27 07:51] LABS: Basophils # (A) 0.1 k/uL (0-0.2); Basophils % (A) 0 %; Eosinophils # (A) 0.1 k/uL (0-0.7); Eosinophils % (A) 1 %; HCT 35.3 % (39.0-53.0); HGB 11.6 gm/dL (13.0-17.5); Lymphocytes # (A) 11.8 k/uL (1.0-4.8); Lymphocytes % (A) 58 %; MCH 30.6 pg (25.0-35.0); MCHC 32.9 g/dL (31.0-37.0); MCV 93.3 fL (80.0-100.0); Mean Platelet Volume 7.8; Monocytes # (A) 0.7 k/uL (0-1.0); Monocytes % (A) 4 %; Neutrophils # (A) 7.3 k/uL (1.3-7.7); Neutrophils % (A) 36 %; Platelet Count 161 k/uL (150-450); RBC 3.78 m/uL (4.30-5.90); RDW 13.8 % (11.5-15.5); WBC 20.3 k/uL (3.8-10.6)
[2024-11-27 08:00] LABS: African American GFR (CKD) 80 (>60 ml/min/1.73 sqM); Anion Gap 5 mmol/L; Blood Urea Nitrogen 42 mg/dL (9-20); Calcium 8.6 mg/dL (8.4-10.2); Carbon Dioxide 35 mmol/L (22-30); Chloride 99 mmol/L (98-107); Glucose 165 mg/dL (74-99); Non-African American GFR(CKD) 69 (>60 ml/min/1.73 sqM); Sodium 139 mmol/L (137-145)
--- NOTE | 2024-11-27 08:15 | XR ---
EXAMINATION TYPE: XR chest 1V DATE OF EXAM: 11/27/2024 7:08 AM COMPARISON: Chest radiographs from TECHNIQUE: XR chest 1V Frontal view of the chest. CLINICAL INDICATION:Male, 79 years old with history of Pulmonary edema; FINDINGS: Lungs/Pleura: No pleural effusion or pneumothorax. Similar scattered airspace opacities throughout th e lungs. Heart/mediastinum: Cardiomediastinal silhouette is enlarged and stable. Musculoskeletal: No acute osseous pathology. IMPRESSION: Similar scattered airspace opacities throughout the lungs. [facility], , 11/27/2024 8:13 AM
[2024-11-27 09:09] LABS: Poikilocytosis (M) Present
[2024-11-27] MEDS: ARTIFICIAL TEARS-HYPROMELLOSE DROPS 15 ML BTL BOTH EYES PRN (09:33)
[2024-11-27] MEDS: POTASSIUM CHLORIDE ER 20 MEQ TAB.ER PO SCH (09:45)
[2024-11-27] MEDS ORDERED: POTASSIUM CHLORIDE ER 20 MEQ TAB.ER PO SCH (10:00)
[2024-11-27 11:27] LABS: Glucose,Whole Blood 144 mg/dL (70-110)
[2024-11-27] MEDS: methylPREDNISolone SOD SUCCI 125 MG/2 ML VIAL IV SCH (11:45)
--- NOTE | 2024-11-27 12:32 | P.PN ---
Subjective Progress Note Date: 11/27/24 79-year-old male with past medical history significant for coronary artery disease, insulin-dependent diabetes mellitus, hypertension presents to the emergency department today due to altered mental status. Patient is unsure of the events surrounding his admission so most of the history is obtained via re cords and hospital staff. Patient was having shortness of breath at home and his called EMS. When EMS arrived to his house he was oriented only to self. He was found to be hypoxic in the low 80s and was placed on supplemental oxygen. Patient denies wearing oxygen at home. Upon arrival to the hospital oxygen saturation had improved and he was AO x 3. He also had an episode of vomiting. Patient reports that he has been feeling sick recently with myalgias, cough productive of greenish sputum, actively being treated for sinus infection. He denies nausea/vomiting, abdominal pain, chest pain, dyspnea, weight loss. 11/22/24 - Seen and examined at bedside. Overnight, patient was more hypoxic, antibiotics were broadened. Now requiring Airvo. 11/23/24 - Seen and examined at bedside. No acute events overnight. Continues to be on Airvo. 11/24/24 - Patient seen and examined at bedside this morning. Overnight the patient became agitated, attempting to get out of his bed and attempting to remove his Airvo. He was given Seroquel 25 mg and was able to calm down. MRSA nares was found to be negative vancomycin was discontinued at this time. 11/25/24 - Patient seen and examined at bedside this morning. No acute events overnight. Continues to be on Airvo with FiO2 of 65%. Kidney/bladder ultrasound completed today, secondary to new onset VERENA, which showed no evidence of hydronephrosis or nephrolithiasis, however did show cholelithiasis. Lisinopril decreased to 20 mg daily. Additionally, CBC today significant WBC 6.7, hemoglobin 11.4, hematocrit 34.5. CMP today significant for potassium 3.1, bicarbonate 32, BUN 34, creatinine 1.33. 11/26/24 - Patient seen and examined at bedside this morning. No acute events overnight. Continues to be on Airvo with FiO2 55%. SpO2 this morning 94%. He is much more alert and awake than he has been previously. States that this morning he is feeling significantly better than he had been in previous days, when he first woke up he did not feel great however in the time since then he feels well. He notes having an increasing appetite, however becomes full very quickly. 11/27/24 - Patient seen and examined at bedside this morning. No acute events overnight. Continues to be on Airvo with FiO2 55% at 60 L. SpO2 this morning 98%. He is able to sit up in the chair comfortably. Continues to state that he he feels better than previous days, however has moments of feeling not quite as well. Potassium was found to be 3.0 on labs drawn today, replaced with 2 doses of 40 mEq potassium chloride, will recheck potassium levels this afternoon. He has no acute complaints at this time. REVIEW OF SYSTEMS: Pertinent positives and negatives noted in HPI. Physical Exam: General: nontoxic, no distress, appears at stated age Derm: warm, dry, intact Head: atraumatic, normocephalic, symmetric Eyes: EOMI, anicteric sclera Cardiovascular: S1 S2 reg, no murmur, rubs, or gallops Lungs: Diminished breath sounds bilaterally, Mild crackles audible in bilateral bases, on high flow nasal cannula. Abdominal: soft, non-tender to palpataion, no appreciable organomegaly Extremities: no gross muscle atrophy, no edema, no contractures Neuro: Alert, Oriented, CNII-XII grossly intact, gait normal Psych: well appearing, appropriate affect Data Received Today: Labs: WBCs 20.3, hemoglobin 11.6, hematocrit 35.3, platelet 161; sodium 139, potassium 3.0, bicarb 35, BUN 42, creatinine 1.04, calcium 8.6, magnesium 2.4 Imagining: Chest x-ray today independently interpreted looks similarly unchanged with scattered airspace opacities Assessment and plan 79-year-old male with past medical history significant for coronary artery disease, insulin-dependent diabetes mellitus, hypertension presents to the emergency department today due to altered mental status. #Severe ARDS #Acute hypoxic respiratory failure #Multifocal pneumonia #Acute NSTEMI -Continue to wean oxygen, patient currently on Airvo -On IV cefepime 2 g every 8 hours (day 5 today) -MRSA nares negative, discontinue vancomycin -I will start steroids given severe pneumonia, started on hydrocortisone 50 IV every 6 hours -Pulmonology following -Continue aspirin 81 mg, atorvastatin 80 mg, Plavix 75 mg daily #Acute kidney injury, improving #Hypokalemia #Contraction alkalosis, improving -Decrease lisinopril to 20 mg daily -Decreased Lasix to 40 mg daily -CMP today potassium 3.0 -40 mEq potassium chloride every 2 hours (for a total of 2 times), recheck BMP this afternoon -Continue monitor CMP #Acute onset delirium -Started on Seroquel 25 mg daily #Debility -PT/OT consulted #Diabetes #Hyperglycemia -Continue Levemir 15 units nightly, continue sliding scale insulin, monitor for hypoglycemia #Right plantar foot ulcer -Wound care following #Hyperbilirubinemia, improved -No right upper quadrant pain #Hypertension -Continue to monitor vital signs Chronic: Hypertension History of CAD History of CLL, in remission DVT ppx: Heparin 5000 units subcu Code status: Full code F: None E: Replete as needed N: Heart healthy diet A: Ambulatory Anticipated discharge place: Pending clinical course Anticipated discharge time: Pending clinical course Dictation was produced using [employer] dictation software. please excuse any grammatical, word or spelling errors. I have seen and evaluated the patient today. Discussed with the resident and agree with the residents finding and plan as documented in the resident's note. Changes highlighted in blue font. Check Mag level. Objective - Vital Signs Vital signs: Vital Signs Temp 97.9 F 11/26/24 20:00 Pulse 47 L 11/27/24 04:00 Resp 16 11/27/24 04:00 BP 119/69 11/27/24 04:00 Pulse Ox 98 11/27/24 04:00 FiO2 55 11/27/24 04:17 Intake & Output 11/26/24 11/27/24 11/27/24 18:59 06:59 18:59 Intake Total 636 120 Output Total 1175 Balance -539 120 Weight 123.5 kg Intake: Oral 636 120 Output: Urine 1175 Other: Voiding Method Indwelling Catheter Indwelling Catheter # Bowel Movements 1 - Labs CBC & Chem 7: 11/27/24 07:11 11/27/24 07:11 Labs: Abnormal Lab Results - Last 24 Hours (Table) 11/26/24 11/26/24 11/26/24 Range/Units 08:16 08:16 11:26 WBC 19.0 H (3.8-10.6) k/uL RBC 3.66 L (4.30-5.90) m/uL Hgb 11.3 L (13.0-17.5) gm/dL Hct 33.9 L (39.0-53.0) % Neutrophils # 9.0 H (1.3-7.7) k/uL Lymphocytes # 9.1 H (1.0-4.8) k/uL BUN 46 H (9-20) mg/dL Glucose 234 H (74-99) mg/dL POC Glucose (mg/dL) 314 H (70-110) mg/dL 11/26/24 11/26/24 11/27/24 Range/Units 16:30 20:13 06:12 WBC (3.8-10.6) k/uL RBC (4.30-5.90) m/uL Hgb (13.0-17.5) gm/dL Hct (39.0-53.0) % Neutrophils # (1.3-7.7) k/uL Lymphocytes # (1.0-4.8) k/uL BUN (9-20) mg/dL Glucose (74-99) mg/dL POC Glucose (mg/dL) 334 H 304 H 190 H (70-110) mg/dL Microbiology - Last 24 Hours (Table) 11/20/24 22:08 Blood Culture - Final Blood
[2024-11-27 15:43] LABS: African American GFR (CKD) 67 (>60 ml/min/1.73 sqM); Anion Gap 7 mmol/L; Blood Urea Nitrogen 39 mg/dL (9-20); Calcium 8.6 mg/dL (8.4-10.2); Carbon Dioxide 35 mmol/L (22-30); Chloride 96 mmol/L (98-107); Glucose 217 mg/dL (74-99); Non-African American GFR(CKD) 58 (>60 ml/min/1.73 sqM); Sodium 138 mmol/L (137-145)
[2024-11-27 16:04] LABS: Glucose,Whole Blood 248 mg/dL (70-110)
[2024-11-27] MEDS: CEFEPIME 2 GM in SODIUM CHLORIDE 0.9% 100 ML IVPB SCH (17:50)
--- NOTE | 2024-11-27 18:49 | P.PN ---
Subjective Progress Note Date: 11/27/24 79-year-old male who presented to the emergency department, on November 20, complaining of nausea, vomiting, diarrhea, and mental status changes. The patient was brought into the emergency department, by EMS, and apparently he was quite confused, and disoriented, when they initially evaluated him. He a pparently was having GI episodes, including vomiting, nausea, and diarrhea. He denies having any chest pain or shortness of breath although his saturations were in the low 80s. He was placed on oxygen therapy, and brought into the hospital. When he was in the ER, he was apparently alert and oriented x 3. He was feeling a bit short of breath. We were consulted today, because the patient's respiratory status has declined, and he is currently on Airvo, with settings of 60 L/min, and an FiO2 of 75%. The patient was thought to have a non-ST segment elevation myocardial infarction, and pneumonia. He was on IV heparin, and saline at 20 cc an hour, as well as vancomycin, and cefepime. His procalcitonin level was 0.21. Current laboratory data includes a white count of 16.9, hemoglobin 11.9, hematocrit 35.5, and a platelet count of 155,000. A blood gas done yesterday shows a pO2 of 62, pCO2 42, and a pH of 7.41. This apparently was on 100% oxygen. Sodium 135, potassium 3.3, chloride 95, CO2 30, anion gap 10, BUN 19, creatinine 1.06. Glucose 296. Hemoglobin A1c was 6.9. Albumin was 3.5. N-terminal proBNP was 2750. Blood cultures were negative. Chest x-ray showed bilateral multifocal airspace opacities, which have improved. Progress note dated November 23, 2024. 79-year-old male seen in consultation yesterday. Please see my note above. The patient is seen today in room 369. He continues on Airvo, 60 L/min and FiO2 of 75%. In addition, the patient continues on cefepime and vancomycin, his procalcitonin level was normal at 0.21. He is also on IV heparin. He states he feels about the same today as he did yesterday, no better, and no worse. White count 18.7, hemoglobin 9.3, hematocrit 33.4, platelet count 156,000. PTT is 56.4. Sodium 136, potassium 3.5, chlorides 100, CO2 29, BUN 24, creatinine 0.93. Glucose 171. Calcium 8.6. Bilirubin 1.5. Albumin 3.2. On 11/24/2024, the patient is being seen for a follow-up. The patient remains quite hypoxic. On today's evaluation, the patient remains on Airvo at 60 L with FiO2 of 70%. The chest x-ray from 11/21/2024 showed improved aeration of both lungs with persistent multifocal airspace opacities. The patient's blood work showed a procalcitonin level of 0.2 at the time of admission x 2 and a proBNP le bryson was 2750. On today's blood work, sodium levels at 135, potassium level is 3.4, BUN 23 with a creatinine of 0.8. LFTs are essentially within normal limits. The patient remains on IV cefepime. The patient will be started on IV Lasix. The patient is also on DuoNeb nebulized treatments [id number], IV hydrocortisone, Levemir insulin 15 units at bedtime and the patient is on metoprolol 25 mg p.o. twice a day. Rest of the medications remain unchanged. Echocardiogram was done on 11/21/2024 indicating a ejection fraction of 50 to 55%, inferolateral wall hypokinesis, no significant valvular abnormalities. The CTA of the chest done on 11/20/2024 revealed no pulmonary embolism and diffuse patchy groundglass pulmonary opacities could relate to interstitial edema versus atypical pulmonary infection and the patient also has evidence of cholelithiasis. The viral screen was negative and Legionella urine antigen was negative at the time of admission. Mental status is appropriate at this point. On 11/25/2024, the patient is still hypoxic, maintained on Airvo at 60 L with an FiO2 of 65%. No significant improvement in oxygenation over the past 24 hours. Noted the patient was started on diuretics yesterday. He remains on IV Lasix and the dose has been switched to 40 mg every 24 hours. Fluid balance -2.9 L over the past 24 hours. The patient has a white cell count of 16.7 with a hemoglobin 11.4 and a platelet count of 158. BUN 34 and the creatinine is up to 1.3. Sodium levels at 141. The patient remains on DuoNeb nebulized treatments [id number]. Remains on IV cefepime. Remains on IV Lasix 40 mg every 24 hours. Rest of the medications remain essentially unchanged. Ultrasound of the kidneys and bladder showed no evidence of any hydronephrosis. The most recent chest x-ray is from 11/22/2024 and it shows improved aeration of the lungs with persistent multifocal airspace opacities. A follow-up chest x-ray is to be obtained for tomorrow.Echocardiogram was done on 11/21/2024 indicating a ejection fraction of 50 to 55%, inferolateral wall hypokinesis, no significant valvular abnormalities. The CTA of the chest done on 11/20/2024 revealed no pulmonary embolism and diffuse patchy groundglass pulmonary opacities could relate to interstitial edema versus atypical pulmonary infection and the patient also has evidence of cholelithiasis. The viral screen was negative and Legionella urine antigen was negative at the time of admission. On 11/26/2024, patient is being seen for a follow-up. This patient remains hypoxic. As mentioned, the patient has developed diffuse groundglass bilateral pulmonary filtrates. Suspected interstitial edema and based on that the patient was started on diuretics. The patient remains on Lasix with a negative fluid balance of 2.9 L and -360 cc over the past 24 hours. Remains on IV Lasix at a dose of 40 mg on a daily basis. On today's blood work, the patient's BUN is 46 with a creatinine of 1.2. Sodium levels at 139 and the potassium level is at 4.2. The patient has a white cell count of 19 with a hemoglobin of 4.3 and a platelet count of 165. He remains on Airvo. The current settings are 60 L with an FiO2 of 55%. A follow-up chest x-ray was obtained today and the chest x-ray is showing scattered airspace opacities throughout the lung and this could essentially present pulmonary edema versus atypical pneumonia. The patient has cardiomegaly. The patient remains on DuoNeb nebulized treatments around-the- clock. The patient remains on IV cefepime. The patient remains on IV hydrocortisone. Remains on Levemir insulin 15 units at bedtime and insulin scale coverage. Remains on metoprolol 25 mg p.o. daily. He is able to sit up on a chair. Using incentive spirometer. On 11/27/2024, patient is being seen for a follow-up. The patient is still dependent on Airvo. This morning, the patient is on a flow of 55 L and FiO2 50%. Fluid balance -410 cc over the past 24 hours. The patient denies having any significant shortness of breath or chest pain. Nevertheless, repeat chest x-ray was done and the findings are essentially unchanged. The patient continues to have diffuse interstitial changes bilaterally along with smaller lung volumes and cardiomegaly. The possibility of acute interstitial p neumonia/pneumonitis cannot be completely ruled out. Other possibilities include acute interstitial pneumonias, eosinophilic pneumonias, acute lung injury. CHF with fluid overload cannot be completely ruled out and the patient is currently on IV Lasix 40 mg every 24 hours. Remains on bronchodilators. Remains on steroids. No history of connective tissue disease and the peritoneal disease markers will be also obtained. Remains on IV cefepime. Objective - Vital Signs Vital signs: Vital Signs Temp 98.2 F 11/27/24 08:10 Pulse 58 L 11/27/24 08:20 Resp 18 11/27/24 08:20 BP 149/58 11/27/24 08:10 Pulse Ox 97 11/27/24 08:35 FiO2 55 11/27/24 08:35 Intake & Output 11/26/24 11/27/24 11/27/24 18:59 06:59 18:59 Intake Total 636 120 240 Output Total 1175 300 Balance -539 120 -60 Weight 123.5 kg Intake: Oral 636 120 240 Output: Urine 1175 300 Other: Voiding Method Indwelling Catheter Indwelling Catheter Indwelling Catheter # Bowel Movements 1 - Exam No acute distress, oriented 3. The patient is currently on Airvo. Settings are 55 L and FiO2 of 55%. The patient is able to speak in full sentences without difficulty. HEENT examination is grossly unremarkable. Mucous membranes are moist. No oral lesions. Neck supple. Full range of motion. No adenopathy thyromegaly or neck vein distention. Cardiovascular examination reveals regular rhythm rate. S1-S2 normal. No S3 or S4. No discernible murmur noted. Heart sounds are distant. Lungs reveal mild scattered rhonchi. No wheezes. Bibasilar crackles are still present. Breath sounds equal bilaterally. Abdomen soft bowel sounds are heard. No masses or tenderness. Extremities are intact. No cyanosis clubbing or edema. Skin is without rash or lesion. Neurologic examination is brief but nonfocal. 55 - Labs CBC & Chem 7: 11/27/24 07:11 11/27/24 15:11 Labs: Abnormal Lab Results - Last 24 Hours (Table) 11/26/24 11/26/24 11/26/24 Range/Units 11:26 16:30 20:13 WBC (3.8-10.6) k/uL RBC (4.30-5.90) m/uL Hgb (13.0-17.5) gm/dL Hct (39.0-53.0) % Lymphocytes # (1.0-4.8) k/uL Potassium (3.5-5.1) mmol/L Carbon Dioxide (22-30) mmol/L BUN (9-20) mg/dL Glucose (74-99) mg/dL POC Glucose (mg/dL) 314 H 334 H 304 H (70-110) mg/dL 11/27/24 11/27/24 11/27/24 Range/Units 06:12 07:11 07:11 WBC 20.3 H (3.8-10.6) k/uL RBC 3.78 L (4.30-5.90) m/uL Hgb 11.6 L (13.0-17.5) gm/dL Hct 35.3 L (39.0-53.0) % Lymphocytes # 11.8 H (1.0-4.8) k/uL Potassium 3.0 L (3.5-5.1) mmol/L Carbon Dioxide 35 H (22-30) mmol/L BUN 42 H (9-20) mg/dL Glucose 165 H (74-99) mg/dL POC Glucose (mg/dL) 190 H (70-110) mg/dL Assessment and Plan Plan: Acute hypoxemic respiratory failure, with diffuse bilateral groundglass pulmonary filtrates. Rule out atypical pneumonia versus CHF/interstitial edema. The patient remains on Airvo at 55 L with an FiO2 of 50%. Echocardiogram shows a preserved LV function. CAT scan of the chest shows no evidence of any pulm embolism and diffuse groundglass bilateral pulmonary filtrates. Chest x-ray shows unchanged the patient is scattered interstitial pulmonary filtrates bilaterally. Consider interstitial edema versus atypical pneumonia. Rule out also acute lung injury, acute interstitial pneumonitis, acute hypersensitive pneumonitis, acute eosinophilic pneumonitis. Acute kidney injury, creatinine stable at 1.2 Acute Non-ST segment elevation myocardial infarction. coronary artery disease. History of diabetes mellitus type II currently on Levemir insulin History of hypertension. History of gastroesophageal reflux disease. History of chronic lymphocytic leukemia, in remission. History of osteoarthritis. Plan: Titrate oxygen flow to maintain saturation above 90%. Currently on Airvo. Follow-up chest x-ray from today was noted, findings are essentially unchanged Continue Lasix 40 mg IV e every 24 hours and the patient remains negative fluid balance IV fluids to KVO Monitor renal function Ultrasound the kidneys shows no evidence of any hydronephrosis IV cefepime as an empiric antibiotic coverage Discontinue hydrocortisone and put the patient IV Solu-Medrol 60 mg every 6 hours Check rheumatologic markers including RF, RAMESH, BENTLEY screen and ANCA screen proBNP level was elevated at time of admission. Procalcitonin levels are nonelevated. The viral screen was negative. Legionella urine antigen was negative. CT of the chest was noted Echo was noted Continue rest of the medications Will continue to follow. Time with Patient: Greater than 30
[2024-11-27 19:52] LABS: Glucose,Whole Blood 395 mg/dL (70-110)
[2024-11-27] MEDS: INSULIN GLARGINE (LANTUS) 100 UNIT/ML SYR SQ SCH (20:27)
[2024-11-27 21:41] LABS: Anti-Smith Ab Interp Negative (Negative)
[2024-11-28 06:01] LABS: Glucose,Whole Blood 294 mg/dL (70-110)
[2024-11-28 06:59] LABS: Basophils # (A) 0.1 k/uL (0-0.2); Basophils % (A) 0 %; Eosinophils % (A) 0 %; HCT 35.3 % (39.0-53.0); HGB 11.8 gm/dL (13.0-17.5); Lymphocytes # (A) 11.9 k/uL (1.0-4.8); Lymphocytes % (A) 60 %; MCH 31.2 pg (25.0-35.0); MCHC 33.5 g/dL (31.0-37.0); Monocytes # (A) 0.3 k/uL (0-1.0); Monocytes % (A) 2 %; Neutrophils # (A) 7.2 k/uL (1.3-7.7); Neutrophils % (A) 36 %; Platelet Count 178 k/uL (150-450); RBC 3.79 m/uL (4.30-5.90); RDW 13.8 % (11.5-15.5); WBC 19.7 k/uL (3.8-10.6)
[2024-11-28 07:10] LABS: African American GFR (CKD) 75 (>60 ml/min/1.73 sqM); Anion Gap 7 mmol/L; Blood Urea Nitrogen 43 mg/dL (9-20); Calcium 8.5 mg/dL (8.4-10.2); Carbon Dioxide 32 mmol/L (22-30); Chloride 98 mmol/L (98-107); Glucose 279 mg/dL (74-99); Non-African American GFR(CKD) 65 (>60 ml/min/1.73 sqM); Sodium 137 mmol/L (137-145)
[2024-11-28 08:15] LABS: Poikilocytosis (M) Present
--- NOTE | 2024-11-28 09:40 | CDI ---
Documentation Clarification Form Date: 11/28/2024 09:05:56 AM From: Waleska Power RN CCDS Phone: [phone] Admit Date: 11/20/2024 09:33:00 PM Patient Name: Dung Marquez Visit Number: [id number] Discharge Date: ATTENTION: The Clinical Documentation Specialists (CDI) and [facility] Coding Staff appreciate your assistance in clarifying documentation. Please respond to the clarification below the line at the bottom and electronically sign. The CDI & [facility] Coding staff will review the response and follow-up if needed. Please note: Queries are made part of the Legal Health Record. If you have any questions, please contact the author of this message via ITS. Doctor: Danita Dalton Your patient has the documented diagnosis of unspecified CHF 11/27, Pulmonary note. Additional information regarding the type, acuity of CHF is requested. History/Risk Factors: 79 year old male presents to the ED with altered mental status and shortness of breath. Medical History: DM2, HTN, CAD and Leukemia 11/21, HP. Clinical Indicators: VS/Pulse OX: 11/22 B/P 162/60 HR 88 Temp 100.4F oral RR 18 SpO2 93% High Flow Oxygen BNP: 11/20 631; BNP: 11/22 2750 Echocardiogram Results: EF 55% Inferolateral wall hypokinesia. No significant valvular dysfunction. Normal RV size and systolic function. Chest X Ray: 11/26 Similar scattered airspace opacities throughout the lungs which may represent pulmonary edema and or pneumonia Treatment: 11/21 Toprol Xl 25mg po Daily 11/21 Lasix 80mg IV x 1; 11/24 11/25 Lasix IV Q12H; 11/26 Laxix 40mg IV Daily. In your professional opinion, can you please clarify the acuity and type of CHF if known? [ ] Acute Diastolic Heart Failure (preserved EF) [x ] Acute on Chronic Diastolic Heart Failure (preserved EF) [ ] Other, please specify [ ] Unable to determine (Template Last Revised: November 2020) MTDD
--- NOTE | 2024-11-28 10:54 | P.PN ---
Subjective Progress Note Date: 11/28/24 79-year-old male with past medical history significant for coronary artery disease, insulin-dependent diabetes mellitus, hypertension presents to the emergency department today due to altered mental status. Patient is unsure of the events surrounding his admission so most of the history is obtained via re cords and hospital staff. Patient was having shortness of breath at home and his called EMS. When EMS arrived to his house he was oriented only to self. He was found to be hypoxic in the low 80s and was placed on supplemental oxygen. Patient denies wearing oxygen at home. Upon arrival to the hospital oxygen saturation had improved and he was AO x 3. He also had an episode of vomiting. Patient reports that he has been feeling sick recently with myalgias, cough productive of greenish sputum, actively being treated for sinus infection. He denies nausea/vomiting, abdominal pain, chest pain, dyspnea, weight loss. 11/22/24 - Seen and examined at bedside. Overnight, patient was more hypoxic, antibiotics were broadened. Now requiring Airvo. 11/23/24 - Seen and examined at bedside. No acute events overnight. Continues to be on Airvo. 11/24/24 - Patient seen and examined at bedside this morning. Overnight the patient became agitated, attempting to get out of his bed and attempting to remove his Airvo. He was given Seroquel 25 mg and was able to calm down. MRSA nares was found to be negative vancomycin was discontinued at this time. 11/25/24 - Patient seen and examined at bedside this morning. No acute events overnight. Continues to be on Airvo with FiO2 of 65%. Kidney/bladder ultrasound completed today, secondary to new onset VERENA, which showed no evidence of hydronephrosis or nephrolithiasis, however did show cholelithiasis. Lisinopril decreased to 20 mg daily. Additionally, CBC today significant WBC 6.7, hemoglobin 11.4, hematocrit 34.5. CMP today significant for potassium 3.1, bicarbonate 32, BUN 34, creatinine 1.33. 11/26/24 - Patient seen and examined at bedside this morning. No acute events overnight. Continues to be on Airvo with FiO2 55%. SpO2 this morning 94%. He is much more alert and awake than he has been previously. States that this morning he is feeling significantly better than he had been in previous days, when he first woke up he did not feel great however in the time since then he feels well. He notes having an increasing appetite, however becomes full very quickly. 11/27/24 - Patient seen and examined at bedside this morning. No acute events overnight. Continues to be on Airvo with FiO2 55% at 60 L. SpO2 this morning 98%. He is able to sit up in the chair comfortably. Continues to state that he he feels better than previous days, however has moments of feeling not quite as well. Potassium was found to be 3.0 on labs drawn today, replaced with 2 doses of 40 mEq potassium chloride, will recheck potassium levels this afternoon. He has no acute complaints at this time. 11/28/24 - Patient seen and examined at bedside this morning. No acute events overnight. He continues to be on Airvo with FiO2 53% at 50 L, SpO2 this morning 97%. He continues to be able to sit up in the chair comfortably, and notes no shortness of breath noted. Potassium found to be normal range today. Continue monitor CMP. He states he continues to feel better and has no acute complaints at this time. REVIEW OF SYSTEMS: Pertinent positives and negatives noted in HPI. Physical Exam: General: nontoxic, no distress, appears at stated age Derm: warm, dry, intact Head: atraumatic, normocephalic, symmetric Eyes: EOMI, anicteric sclera Cardiovascular: S1 S2 reg, no murmur, rubs, or gallops Lungs: Diminished breath sounds bilaterally, Mild crackles audible in bilateral bases, on high flow nasal cannula. Abdominal: soft, non-tender to palpataion, no appreciable organomegaly Extremities: no gross muscle atrophy, no edema, no contractures Neuro: Alert, Oriented, CNII-XII grossly intact, gait normal Psych: well appearing, appropriate affect Data Received Today: Labs: WBCs 19.7, hemoglobin 11.8, hematocrit 35.3, platelet 178; sodium 137, potassium 4.0, bicarb 32, BUN 43, creatinine 1.09, calcium 8.5 -Rheumatologic markers, RF, RAMESH, BENTLEY, ANCA all negative Imagining: No new imaging Assessment and plan 79-year-old male with past medical history significant for coronary artery disease, insulin-dependent diabetes mellitus, hypertension presents to the emergency department today due to altered mental status. #Severe ARDS #Acute hypoxic respiratory failure #Multifocal pneumonia #Acute NSTEMI -Continue to wean oxygen, patient currently on Airvo; maintain SpO2 > 90% -On IV cefepime 2 g every 8 hours (day 6 today) -MRSA nares negative, discontinue vancomycin -Started on Solu-Medrol 60 mg every 6 hours -Pulmonology following -Continue aspirin 81 mg, atorvastatin 80 mg, Plavix 75 mg daily #Acute kidney injury, improving #Hypokalemia, resolved #Contraction alkalosis, improving -Decrease lisinopril to 20 mg daily -Decreased Lasix to 40 mg daily -CMP today potassium 4.0 -Continue monitor CMP #Acute onset delirium -Started on Seroquel 25 mg daily #Debility -PT/OT consulted #Diabetes #Hyperglycemia -Continue Levemir 15 units nightly, continue sliding scale insulin, monitor for hypoglycemia #Right plantar foot ulcer -Wound care following #Hyperbilirubinemia, improved -No right upper quadrant pain #Hypertension -Continue to monitor vital signs Chronic: Hypertension History of CAD History of CLL, in remission DVT ppx: Heparin 5000 units subcu Code status: Full code F: None E: Replete as needed N: Heart healthy diet A: Ambulatory Anticipated discharge place: Pending clinical course Anticipated discharge time: Pending clinical course Dictation was produced using uniRow dictation software. please excuse any gramm atical, word or spelling errors. I have seen and evaluated the patient today. Discussed with the resident and agree with the residents finding and plan as documented in the resident's note. Changes highlighted in blue font. Objective - Vital Signs Vital signs: Vital Signs Temp 97.9 F 11/28/24 04:00 Pulse 55 L 11/28/24 04:00 Resp 20 11/28/24 04:00 BP 127/69 11/28/24 04:00 Pulse Ox 97 11/28/24 04:07 FiO2 53 11/28/24 04:07 Intake & Output 11/27/24 11/28/24 11/28/24 18:59 06:59 18:59 Intake Total 600 Output Total 1500 200 Balance -900 -200 Weight 129 kg Intake: Oral 600 Output: Urine 1500 200 Other: Voiding Method Indwelling Catheter Indwelling Catheter # Bowel Movements 1 - Labs CBC & Chem 7: 11/28/24 06:19 11/28/24 06:15 Labs: Abnormal Lab Results - Last 24 Hours (Table) 11/27/24 11/27/24 11/27/24 Range/Units 07:11 07:11 07:11 WBC 20.3 H (3.8-10.6) k/uL RBC 3.78 L (4.30-5.90) m/uL Hgb 11.6 L (13.0-17.5) gm/dL Hct 35.3 L (39.0-53.0) % Lymphocytes # 11.8 H (1.0-4.8) k/uL Potassium 3.0 L (3.5-5.1) mmol/L Chloride (98-107) mmol/L Carbon Dioxide 35 H (22-30) mmol/L BUN 42 H (9-20) mg/dL Glucose 165 H (74-99) mg/dL POC Glucose (mg/dL) (70-110) mg/dL Magnesium 2.4 H (1.6-2.3) mg/dL 11/27/24 11/27/24 11/27/24 Range/Units 11:25 15:11 16:02 WBC (3.8-10.6) k/uL RBC (4.30-5.90) m/uL Hgb (13.0-17.5) gm/dL Hct (39.0-53.0) % Lymphocytes # (1.0-4.8) k/uL Potassium (3.5-5.1) mmol/L Chloride 96 L (98-107) mmol/L Carbon Dioxide 35 H (22-30) mmol/L BUN 39 H (9-20) mg/dL Glucose 217 H (74-99) mg/dL POC Glucose (mg/dL) 144 H 248 H (70-110) mg/dL Magnesium (1.6-2.3) mg/dL 11/27/24 11/28/24 11/28/24 Range/Units 19:49 05:59 06:15 WBC (3.8-10.6) k/uL RBC (4.30-5.90) m/uL Hgb (13.0-17.5) gm/dL Hct (39.0-53.0) % Lymphocytes # (1.0-4.8) k/uL Potassium (3.5-5.1) mmol/L Chloride (98-107) mmol/L Carbon Dioxide 32 H (22-30) mmol/L BUN 43 H (9-20) mg/dL Glucose 279 H (74-99) mg/dL POC Glucose (mg/dL) 395 H 294 H (70-110) mg/dL Magnesium (1.6-2.3) mg/dL 11/28/24 Range/Units 06:19 WBC 19.7 H (3.8-10.6) k/uL RBC 3.79 L (4.30-5.90) m/uL Hgb 11.8 L (13.0-17.5) gm/dL Hct 35.3 L (39.0-53.0) % Lymphocytes # (1.0-4.8) k/uL Potassium (3.5-5.1) mmol/L Chloride (98-107) mmol/L Carbon Dioxide (22-30) mmol/L BUN (9-20) mg/dL Glucose (74-99) mg/dL POC Glucose (mg/dL) (70-110) mg/dL Magnesium (1.6-2.3) mg/dL
[2024-11-28 11:44] LABS: Glucose,Whole Blood 335 mg/dL (70-110)
[2024-11-28] MEDS: INSULIN LISPRO (HumaLOG) 100 UNIT/ML 10 mL VL SQ SCH (12:22)
[2024-11-28 15:05] LABS: C-ANCA <1:20 Titer (<1:20)
--- NOTE | 2024-11-28 15:42 | P.PN ---
Subjective Progress Note Date: 11/28/24 79-year-old male who presented to the emergency department, on November 20, complaining of nausea, vomiting, diarrhea, and mental status changes. The patient was brought into the emergency department, by EMS, and apparently he was quite confused, and disoriented, when they initially evaluated him. He a pparently was having GI episodes, including vomiting, nausea, and diarrhea. He denies having any chest pain or shortness of breath although his saturations were in the low 80s. He was placed on oxygen therapy, and brought into the hospital. When he was in the ER, he was apparently alert and oriented x 3. He was feeling a bit short of breath. We were consulted today, because the patient's respiratory status has declined, and he is currently on Airvo, with settings of 60 L/min, and an FiO2 of 75%. The patient was thought to have a non-ST segment elevation myocardial infarction, and pneumonia. He was on IV heparin, and saline at 20 cc an hour, as well as vancomycin, and cefepime. His procalcitonin level was 0.21. Current laboratory data includes a white count of 16.9, hemoglobin 11.9, hematocrit 35.5, and a platelet count of 155,000. A blood gas done yesterday shows a pO2 of 62, pCO2 42, and a pH of 7.41. This apparently was on 100% oxygen. Sodium 135, potassium 3.3, chloride 95, CO2 30, anion gap 10, BUN 19, creatinine 1.06. Glucose 296. Hemoglobin A1c was 6.9. Albumin was 3.5. N-terminal proBNP was 2750. Blood cultures were negative. Chest x-ray showed bilateral multifocal airspace opacities, which have improved. Progress note dated November 23, 2024. 79-year-old male seen in consultation yesterday. Please see my note above. The patient is seen today in room 369. He continues on Airvo, 60 L/min and FiO2 of 75%. In addition, the patient continues on cefepime and vancomycin, his procalcitonin level was normal at 0.21. He is also on IV heparin. He states he feels about the same today as he did yesterday, no better, and no worse. White count 18.7, hemoglobin 9.3, hematocrit 33.4, platelet count 156,000. PTT is 56.4. Sodium 136, potassium 3.5, chlorides 100, CO2 29, BUN 24, creatinine 0.93. Glucose 171. Calcium 8.6. Bilirubin 1.5. Albumin 3.2. On 11/24/2024, the patient is being seen for a follow-up. The patient remains quite hypoxic. On today's evaluation, the patient remains on Airvo at 60 L with FiO2 of 70%. The chest x-ray from 11/21/2024 showed improved aeration of both lungs with persistent multifocal airspace opacities. The patient's blood work showed a procalcitonin level of 0.2 at the time of admission x 2 and a proBNP le bryson was 2750. On today's blood work, sodium levels at 135, potassium level is 3.4, BUN 23 with a creatinine of 0.8. LFTs are essentially within normal limits. The patient remains on IV cefepime. The patient will be started on IV Lasix. The patient is also on DuoNeb nebulized treatments [id number], IV hydrocortisone, Levemir insulin 15 units at bedtime and the patient is on metoprolol 25 mg p.o. twice a day. Rest of the medications remain unchanged. Echocardiogram was done on 11/21/2024 indicating a ejection fraction of 50 to 55%, inferolateral wall hypokinesis, no significant valvular abnormalities. The CTA of the chest done on 11/20/2024 revealed no pulmonary embolism and diffuse patchy groundglass pulmonary opacities could relate to interstitial edema versus atypical pulmonary infection and the patient also has evidence of cholelithiasis. The viral screen was negative and Legionella urine antigen was negative at the time of admission. Mental status is appropriate at this point. On 11/25/2024, the patient is still hypoxic, maintained on Airvo at 60 L with an FiO2 of 65%. No significant improvement in oxygenation over the past 24 hours. Noted the patient was started on diuretics yesterday. He remains on IV Lasix and the dose has been switched to 40 mg every 24 hours. Fluid balance -2.9 L over the past 24 hours. The patient has a white cell count of 16.7 with a hemoglobin 11.4 and a platelet count of 158. BUN 34 and the creatinine is up to 1.3. Sodium levels at 141. The patient remains on DuoNeb nebulized treatments [id number]. Remains on IV cefepime. Remains on IV Lasix 40 mg every 24 hours. Rest of the medications remain essentially unchanged. Ultrasound of the kidneys and bladder showed no evidence of any hydronephrosis. The most recent chest x-ray is from 11/22/2024 and it shows improved aeration of the lungs with persistent multifocal airspace opacities. A follow-up chest x-ray is to be obtained for tomorrow.Echocardiogram was done on 11/21/2024 indicating a ejection fraction of 50 to 55%, inferolateral wall hypokinesis, no significant valvular abnormalities. The CTA of the chest done on 11/20/2024 revealed no pulmonary embolism and diffuse patchy groundglass pulmonary opacities could relate to interstitial edema versus atypical pulmonary infection and the patient also has evidence of cholelithiasis. The viral screen was negative and Legionella urine antigen was negative at the time of admission. On 11/26/2024, patient is being seen for a follow-up. This patient remains hypoxic. As mentioned, the patient has developed diffuse groundglass bilateral pulmonary filtrates. Suspected interstitial edema and based on that the patient was started on diuretics. The patient remains on Lasix with a negative fluid balance of 2.9 L and -360 cc over the past 24 hours. Remains on IV Lasix at a dose of 40 mg on a daily basis. On today's blood work, the patient's BUN is 46 with a creatinine of 1.2. Sodium levels at 139 and the potassium level is at 4.2. The patient has a white cell count of 19 with a hemoglobin of 4.3 and a platelet count of 165. He remains on Airvo. The current settings are 60 L with an FiO2 of 55%. A follow-up chest x-ray was obtained today and the chest x-ray is showing scattered airspace opacities throughout the lung and this could essentially present pulmonary edema versus atypical pneumonia. The patient has cardiomegaly. The patient remains on DuoNeb nebulized treatments around-the- clock. The patient remains on IV cefepime. The patient remains on IV hydrocortisone. Remains on Levemir insulin 15 units at bedtime and insulin scale coverage. Remains on metoprolol 25 mg p.o. daily. He is able to sit up on a chair. Using incentive spirometer. On 11/27/2024, patient is being seen for a follow-up. The patient is still dependent on Airvo. This morning, the patient is on a flow of 55 L and FiO2 50%. Fluid balance -410 cc over the past 24 hours. The patient denies having any significant shortness of breath or chest pain. Nevertheless, repeat chest x-ray was done and the findings are essentially unchanged. The patient continues to have diffuse interstitial changes bilaterally along with smaller lung volumes and cardiomegaly. The possibility of acute interstitial p neumonia/pneumonitis cannot be completely ruled out. Other possibilities include acute interstitial pneumonias, eosinophilic pneumonias, acute lung injury. CHF with fluid overload cannot be completely ruled out and the patient is currently on IV Lasix 40 mg every 24 hours. Remains on bronchodilators. Remains on steroids. No history of connective tissue disease and the peritoneal disease markers will be also obtained. Remains on IV cefepime. On 11/28/2024, the patient is being seen for a follow-up. Feels well. Oxygenation continues to gradually improving this morning, the patient remains on Airvo 45 L with an FiO2 of 45%. Receiving Lasix 40 mg IV every 24 hours and producing excellent urine output. Remains in negative fluid balance of 1.1 L over the past 24 hours. Continues to have crackles in the lung bases however clinically the patient reports that he is improving considerably. The white cell count of 19.7, hemoglobin is 11.8 and BUN is 43 with a creatinine of 1.09 and sodium is at 137. Started on steroids yesterday. Remains on IV cefepime. The connective tissue disease markers sent yesterday came back negative including negative rheumatoid factor, RAMESH and ANCA and RAMESH screen. Objective - Vital Signs Vital signs: Vital Signs Temp 97.9 F 11/28/24 08:45 Pulse 74 11/28/24 08:45 Resp 20 11/28/24 08:45 BP 126/53 11/28/24 08:45 Pulse Ox 97 11/28/24 08:47 FiO2 45 11/28/24 12:05 Intake & Output 11/27/24 11/28/24 11/28/24 18:59 06:59 18:59 Intake Total 600 Output Total 1500 200 750 Balance -900 -200 -750 Weight 129 kg Intake: Oral 600 Output: Urine 1500 200 750 Other: Voiding Method Indwelling Catheter Indwelling Catheter Indwelling Catheter # Bowel Movements 1 - Exam No acute distress, oriented 3. The patient is currently on Airvo. Settings are 45 L with an FiO2 of 45 %. The patient is able to speak in full sentences without difficulty. HEENT examination is grossly unremarkable. Mucous membranes are moist. No oral lesions. Neck supple. Full range of motion. No adenopathy thyromegaly or neck vein distention. Cardiovascular examination reveals regular rhythm rate. S1-S2 normal. No S3 or S4. No discernible murmur noted. Heart sounds are distant. Lungs reveal mild scattered rhonchi. No wheezes. Bibasilar crackles are still present. Breath sounds equal bilaterally. Abdomen soft bowel sounds are heard. No masses or tenderness. Extremities are intact. No cyanosis clubbing or edema. Skin is without rash or lesion. Neurologic examination is brief but nonfocal. 55 - Labs CBC & Chem 7: 11/28/24 06:19 11/28/24 06:15 Labs: Abnormal Lab Results - Last 24 Hours (Table) 11/27/24 11/27/24 11/27/24 Range/Units 15:11 16:02 19:49 WBC (3.8-10.6) k/uL RBC (4.30-5.90) m/uL Hgb (13.0-17.5) gm/dL Hct (39.0-53.0) % Lymphocytes # (1.0-4.8) k/uL Chloride 96 L (98-107) mmol/L Carbon Dioxide 35 H (22-30) mmol/L BUN 39 H (9-20) mg/dL Glucose 217 H (74-99) mg/dL POC Glucose (mg/dL) 248 H 395 H (70-110) mg/dL 11/28/24 11/28/24 11/28/24 Range/Units 05:59 06:15 06:19 WBC 19.7 H (3.8-10.6) k/uL RBC 3.79 L (4.30-5.90) m/uL Hgb 11.8 L (13.0-17.5) gm/dL Hct 35.3 L (39.0-53.0) % Lymphocytes # 11.9 H (1.0-4.8) k/uL Chloride (98-107) mmol/L Carbon Dioxide 32 H (22-30) mmol/L BUN 43 H (9-20) mg/dL Glucose 279 H (74-99) mg/dL POC Glucose (mg/dL) 294 H (70-110) mg/dL 11/28/24 Range/Units 11:42 WBC (3.8-10.6) k/uL RBC (4.30-5.90) m/uL Hgb (13.0-17.5) gm/dL Hct (39.0-53.0) % Lymphocytes # (1.0-4.8) k/uL Chloride (98-107) mmol/L Carbon Dioxide (22-30) mmol/L BUN (9-20) mg/dL Glucose (74-99) mg/dL POC Glucose (mg/dL) 335 H (70-110) mg/dL Assessment and Plan Plan: Acute hypoxemic respiratory failure, with diffuse bilateral groundglass pulmonary filtrates. Rule out atypical pneumonia versus CHF/interstitial edema. The patient remains on Airvo at 45 L with an FiO2 of 45 %. Echocardiogram shows a preserved LV function. CAT scan of the chest shows no evidence of any pulm embolism and diffuse groundglass bilateral pulmonary filtrates. Chest x- ray shows unchanged the patient is scattered interstitial pulmonary filtrates bilaterally. Consider interstitial edema versus atypical pneumonia. Rule out also acute lung injury, acute interstitial pneumonitis, acute hypersensitive pneumonitis, acute eosinophilic pneumonitis. Connective tissue disease markers were negative. The patient is currently on IV steroids and diuretics and there is ongoing improvement in his oxygenation Acute kidney injury, recovered Acute Non-ST segment elevation myocardial infarction. coronary artery disease. History of diabetes mellitus type II currently on Levemir insulin History of hypertension. History of gastroesophageal reflux disease. History of chronic lymphocytic leukemia, in remission. History of osteoarthritis. Plan: Titrate oxygen flow to maintain saturation above 90%. Currently on Airvo. The patient has been weaned down to an FiO2 of 45% with a flow of 45 L Repeat chest x-ray in the morning Continue Lasix 40 mg IV e every 24 hours and the patient remains negative fluid balance IV fluids to KVO Monitor renal function Ultrasound the kidneys shows no evidence of any hydronephrosis IV cefepime as an empiric antibiotic coverage Continue V Solu-Medrol 60 mg every 6 hours Check rheumatologic markers including RF, RAMESH, BENTLEY screen and ANCA screen and all of those came back negative proBNP level was elevated at time of admission. Procalcitonin levels are nonelevated. The viral screen was negative. Legionella urine antigen was negative. CT of the chest was noted Echo was noted Continue rest of the medications Will continue to follow. Time with Patient: Greater than 30
[2024-11-28] MEDS: MECLIZINE 25 MG TAB PO PRN (15:49)
[2024-11-28 16:41] LABS: Glucose,Whole Blood 382 mg/dL (70-110)
[2024-11-28 20:19] LABS: Glucose,Whole Blood 457 mg/dL (70-110)
[2024-11-29 06:21] LABS: Glucose,Whole Blood 263 mg/dL (70-110)
[2024-11-29 08:04] LABS: Glucose,Whole Blood 278 mg/dL (70-110)
[2024-11-29 08:33] LABS: Basophils # (A) 0.2 k/uL (0-0.2); Basophils % (A) 1 %; Eosinophils % (A) 0 %; HGB 12.1 gm/dL (13.0-17.5); Hypochromasia Slight; Lymphocytes % (A) 56 %; MCHC 32.6 g/dL (31.0-37.0); Mean Platelet Volume 8.1; Monocytes # (A) 0.9 k/uL (0-1.0); Monocytes % (A) 3 %; Neutrophils # (A) 12.4 k/uL (1.3-7.7); Neutrophils % (A) 39 %; Platelet Count 222 k/uL (150-450); RBC 3.89 m/uL (4.30-5.90); RDW 13.8 % (11.5-15.5); WBC 31.8 k/uL (3.8-10.6)
[2024-11-29 08:49] LABS: African American GFR (CKD) 75 (>60 ml/min/1.73 sqM); Anion Gap 8 mmol/L; Blood Urea Nitrogen 48 mg/dL (9-20); Calcium 8.7 mg/dL (8.4-10.2); Carbon Dioxide 33 mmol/L (22-30); Chloride 95 mmol/L (98-107); Glucose 231 mg/dL (74-99); Non-African American GFR(CKD) 65 (>60 ml/min/1.73 sqM); Potassium 3.8 mmol/L (3.5-5.1); Sodium 136 mmol/L (137-145)
[2024-11-29 08:59] LABS: Lymphocytes # (A) 17.7 k/uL (1.0-4.8)
[2024-11-29 11:10] LABS: Glucose,Whole Blood 249 mg/dL (70-110)
--- NOTE | 2024-11-29 11:11 | P.PN ---
Subjective Progress Note Date: 11/29/24 79-year-old male with past medical history significant for coronary artery disease, insulin-dependent diabetes mellitus, hypertension presents to the emergency department today due to altered mental status. Patient is unsure of the events surrounding his admission so most of the history is obtained via re cords and hospital staff. Patient was having shortness of breath at home and his called EMS. When EMS arrived to his house he was oriented only to self. He was found to be hypoxic in the low 80s and was placed on supplemental oxygen. Patient denies wearing oxygen at home. Upon arrival to the hospital oxygen saturation had improved and he was AO x 3. He also had an episode of vomiting. Patient reports that he has been feeling sick recently with myalgias, cough productive of greenish sputum, actively being treated for sinus infection. He denies nausea/vomiting, abdominal pain, chest pain, dyspnea, weight loss. 11/22/24 - Seen and examined at bedside. Overnight, patient was more hypoxic, antibiotics were broadened. Now requiring Airvo. 11/23/24 - Seen and examined at bedside. No acute events overnight. Continues to be on Airvo. 11/24/24 - Patient seen and examined at bedside this morning. Overnight the patient became agitated, attempting to get out of his bed and attempting to remove his Airvo. He was given Seroquel 25 mg and was able to calm down. MRSA nares was found to be negative vancomycin was discontinued at this time. 11/25/24 - Patient seen and examined at bedside this morning. No acute events overnight. Continues to be on Airvo with FiO2 of 65%. Kidney/bladder ultrasound completed today, secondary to new onset VERENA, which showed no evidence of hydronephrosis or nephrolithiasis, however did show cholelithiasis. Lisinopril decreased to 20 mg daily. Additionally, CBC today significant WBC 6.7, hemoglobin 11.4, hematocrit 34.5. CMP today significant for potassium 3.1, bicarbonate 32, BUN 34, creatinine 1.33. 11/26/24 - Patient seen and examined at bedside this morning. No acute events overnight. Continues to be on Airvo with FiO2 55%. SpO2 this morning 94%. He is much more alert and awake than he has been previously. States that this morning he is feeling significantly better than he had been in previous days, when he first woke up he did not feel great however in the time since then he feels well. He notes having an increasing appetite, however becomes full very quickly. 11/27/24 - Patient seen and examined at bedside this morning. No acute events overnight. Continues to be on Airvo with FiO2 55% at 60 L. SpO2 this morning 98%. He is able to sit up in the chair comfortably. Continues to state that he he feels better than previous days, however has moments of feeling not quite as well. Potassium was found to be 3.0 on labs drawn today, replaced with 2 doses of 40 mEq potassium chloride, will recheck potassium levels this afternoon. He has no acute complaints at this time. 11/28/24 - Patient seen and examined at bedside this morning. No acute events overnight. He continues to be on Airvo with FiO2 53% at 50 L, SpO2 this morning 97%. He continues to be able to sit up in the chair comfortably, and notes no shortness of breath noted. Potassium found to be normal range today. Continue monitor CMP. He states he continues to feel better and has no acute complaints at this time. 11/29/24 - Patient seen and examined at bedside this morning. No acute events overnight. He continues to be on Airvo with FiO2 40% at 40 L. He continues to be able to stop in the chair comfortably notes no acute shortness of breath. He continues on cefepime IV every 8 hours (day 3). He was noted to have symptoms of vertigo yesterday, and was started on Antivert 25 mg twice daily. REVIEW OF SYSTEMS: Pertinent positives and negatives noted in HPI. Physical Exam: General: nontoxic, no distress, appears at stated age Derm: warm, dry, intact Head: atraumatic, normocephalic, symmetric Eyes: EOMI, anicteric sclera Cardiovascular: S1 S2 reg, no murmur, rubs, or gallops Lungs: Diminished breath sounds bilaterally, Mild crackles audible in bilateral bases, on high flow nasal cannula. Abdominal: soft, non-tender to palpataion, no appreciable organomegaly Extremities: no gross muscle atrophy, no edema, no contractures Neuro: Alert, Oriented, CNII-XII grossly intact, gait normal Psych: well appearing, appropriate affect Data Received Today: Labs: WBCs 31.8, hemoglobin 12.1, medic at 37, platelet 222; sodium 136, potassium 3.8, chloride 95, bicarb 33, BUN 48, creatinine 1.10, calcium 8.7 Imagining: No new imaging Assessment and plan 79-year-old male with past medical history significant for coronary artery disease, insulin-dependent diabetes mellitus, hypertension presents to the emergency department today due to altered mental status. #Severe ARDS #Acute hypoxic respiratory failure #Multifocal pneumonia #Acute NSTEMI -Continue to wean oxygen, patient currently on Airvo; maintain SpO2 > 90% -On IV cefepime 2 g every 8 hours (day 6 today) -MRSA nares negative, discontinue vancomycin -Started on Solu-Medrol 60 mg every 6 hours -Pulmonology following -Continue aspirin 81 mg, atorvastatin 80 mg, Plavix 75 mg daily #Acute kidney injury, improving #Hypokalemia, resolved #Contraction alkalosis, improving #Hypochloremia #Hyponatremia -Decrease lisinopril to 20 mg daily -Decreased Lasix to 40 mg daily -CMP today potassium 3.8 -Continue monitor BMP #Acute onset delirium -Started on Seroquel 25 mg daily #Debility -PT/OT consulted #Diabetes #Hyperglycemia -Continue Levemir 20 units nightly, continue sliding scale insulin, monitor for hypoglycemia -Initiated on NovoLog 5 units 3 times daily -Continue to monitor glucose daily, and make adjustments as necessary #Right plantar foot ulcer -Wound care following #Hyperbilirubinemia, improved -No right upper quadrant pain #Hypertension -Continue to monitor vital signs #Vertigo/dizziness -Started on Antivert 25 mg twice daily -Continue monitor signs symptoms Chronic: Hypertension History of CAD History of CLL, in remission DVT ppx: Heparin 5000 units subcu every 8 hours Code status: Full code F: None E: Replete as needed N: Heart healthy diet A: Ambulatory Anticipated discharge place: Pending clinical course Anticipated discharge time: Pending clinical course Dictation was produced using [employer] (RCD[employer]) dictation software. please excuse any grammatical, word or spelling errors. I have seen and evaluated the patient today. Discussed with the resident and agree with the residents finding and plan as documented in the resident's note. Changes highlighted in blue font. Objective - Vital Signs Vital signs: Vital Signs Temp 97.7 F 11/28/24 20:00 Pulse 55 L 11/29/24 04:00 Resp 18 11/29/24 04:00 BP 126/68 11/29/24 04:00 Pulse Ox 97 11/28/24 08:47 FiO2 50 11/29/24 04:16 Intake & Output 11/28/24 11/29/24 11/29/24 18:59 06:59 18:59 Intake Total 698 Output Total 1350 Balance -652 Weight 123 kg Intake: Intake, IV Titration 100 Amount Cefepime 2 gm In Sodium 100 Chloride 0.9% 100 ml @ 25 mls/hr IVPB Q8H [facility] Rx#: [id number] Oral 598 Output: Urine 1350 Other: Voiding Method Indwelling Catheter Indwelling Catheter - Labs CBC & Chem 7: 11/29/24 07:36 11/29/24 07:36 Labs: Abnormal Lab Results - Last 24 Hours (Table) 11/28/24 11/28/24 11/28/24 Range/Units 06:19 11:42 16:40 Lymphocytes # 11.9 H (1.0-4.8) k/uL POC Glucose (mg/dL) 335 H 382 H (70-110) mg/dL 11/28/24 11/29/24 Range/Units 20:08 06:01 Lymphocytes # (1.0-4.8) k/uL POC Glucose (mg/dL) 457 H 263 H (70-110) mg/dL
--- NOTE | 2024-11-29 14:23 | P.PN ---
Subjective Progress Note Date: 11/29/24 79-year-old male who presented to the emergency department, on November 20, complaining of nausea, vomiting, diarrhea, and mental status changes. The patient was brought into the emergency department, by EMS, and apparently he was quite confused, and disoriented, when they initially evaluated him. He a pparently was having GI episodes, including vomiting, nausea, and diarrhea. He denies having any chest pain or shortness of breath although his saturations were in the low 80s. He was placed on oxygen therapy, and brought into the hospital. When he was in the ER, he was apparently alert and oriented x 3. He was feeling a bit short of breath. We were consulted today, because the patient's respiratory status has declined, and he is currently on Airvo, with settings of 60 L/min, and an FiO2 of 75%. The patient was thought to have a non-ST segment elevation myocardial infarction, and pneumonia. He was on IV heparin, and saline at 20 cc an hour, as well as vancomycin, and cefepime. His procalcitonin level was 0.21. Current laboratory data includes a white count of 16.9, hemoglobin 11.9, hematocrit 35.5, and a platelet count of 155,000. A blood gas done yesterday shows a pO2 of 62, pCO2 42, and a pH of 7.41. This apparently was on 100% oxygen. Sodium 135, potassium 3.3, chloride 95, CO2 30, anion gap 10, BUN 19, creatinine 1.06. Glucose 296. Hemoglobin A1c was 6.9. Albumin was 3.5. N-terminal proBNP was 2750. Blood cultures were negative. Chest x-ray showed bilateral multifocal airspace opacities, which have improved. Progress note dated November 23, 2024. 79-year-old male seen in consultation yesterday. Please see my note above. The patient is seen today in room 369. He continues on Airvo, 60 L/min and FiO2 of 75%. In addition, the patient continues on cefepime and vancomycin, his procalcitonin level was normal at 0.21. He is also on IV heparin. He states he feels about the same today as he did yesterday, no better, and no worse. White count 18.7, hemoglobin 9.3, hematocrit 33.4, platelet count 156,000. PTT is 56.4. Sodium 136, potassium 3.5, chlorides 100, CO2 29, BUN 24, creatinine 0.93. Glucose 171. Calcium 8.6. Bilirubin 1.5. Albumin 3.2. On 11/24/2024, the patient is being seen for a follow-up. The patient remains quite hypoxic. On today's evaluation, the patient remains on Airvo at 60 L with FiO2 of 70%. The chest x-ray from 11/21/2024 showed improved aeration of both lungs with persistent multifocal airspace opacities. The patient's blood work showed a procalcitonin level of 0.2 at the time of admission x 2 and a proBNP le bryson was 2750. On today's blood work, sodium levels at 135, potassium level is 3.4, BUN 23 with a creatinine of 0.8. LFTs are essentially within normal limits. The patient remains on IV cefepime. The patient will be started on IV Lasix. The patient is also on DuoNeb nebulized treatments [id number], IV hydrocortisone, Levemir insulin 15 units at bedtime and the patient is on metoprolol 25 mg p.o. twice a day. Rest of the medications remain unchanged. Echocardiogram was done on 11/21/2024 indicating a ejection fraction of 50 to 55%, inferolateral wall hypokinesis, no significant valvular abnormalities. The CTA of the chest done on 11/20/2024 revealed no pulmonary embolism and diffuse patchy groundglass pulmonary opacities could relate to interstitial edema versus atypical pulmonary infection and the patient also has evidence of cholelithiasis. The viral screen was negative and Legionella urine antigen was negative at the time of admission. Mental status is appropriate at this point. On 11/25/2024, the patient is still hypoxic, maintained on Airvo at 60 L with an FiO2 of 65%. No significant improvement in oxygenation over the past 24 hours. Noted the patient was started on diuretics yesterday. He remains on IV Lasix and the dose has been switched to 40 mg every 24 hours. Fluid balance -2.9 L over the past 24 hours. The patient has a white cell count of 16.7 with a hemoglobin 11.4 and a platelet count of 158. BUN 34 and the creatinine is up to 1.3. Sodium levels at 141. The patient remains on DuoNeb nebulized treatments [id number]. Remains on IV cefepime. Remains on IV Lasix 40 mg every 24 hours. Rest of the medications remain essentially unchanged. Ultrasound of the kidneys and bladder showed no evidence of any hydronephrosis. The most recent chest x-ray is from 11/22/2024 and it shows improved aeration of the lungs with persistent multifocal airspace opacities. A follow-up chest x-ray is to be obtained for tomorrow.Echocardiogram was done on 11/21/2024 indicating a ejection fraction of 50 to 55%, inferolateral wall hypokinesis, no significant valvular abnormalities. The CTA of the chest done on 11/20/2024 revealed no pulmonary embolism and diffuse patchy groundglass pulmonary opacities could relate to interstitial edema versus atypical pulmonary infection and the patient also has evidence of cholelithiasis. The viral screen was negative and Legionella urine antigen was negative at the time of admission. On 11/26/2024, patient is being seen for a follow-up. This patient remains hypoxic. As mentioned, the patient has developed diffuse groundglass bilateral pulmonary filtrates. Suspected interstitial edema and based on that the patient was started on diuretics. The patient remains on Lasix with a negative fluid balance of 2.9 L and -360 cc over the past 24 hours. Remains on IV Lasix at a dose of 40 mg on a daily basis. On today's blood work, the patient's BUN is 46 with a creatinine of 1.2. Sodium levels at 139 and the potassium level is at 4.2. The patient has a white cell count of 19 with a hemoglobin of 4.3 and a platelet count of 165. He remains on Airvo. The current settings are 60 L with an FiO2 of 55%. A follow-up chest x-ray was obtained today and the chest x-ray is showing scattered airspace opacities throughout the lung and this could essentially present pulmonary edema versus atypical pneumonia. The patient has cardiomegaly. The patient remains on DuoNeb nebulized treatments around-the- clock. The patient remains on IV cefepime. The patient remains on IV hydrocortisone. Remains on Levemir insulin 15 units at bedtime and insulin scale coverage. Remains on metoprolol 25 mg p.o. daily. He is able to sit up on a chair. Using incentive spirometer. On 11/27/2024, patient is being seen for a follow-up. The patient is still dependent on Airvo. This morning, the patient is on a flow of 55 L and FiO2 50%. Fluid balance -410 cc over the past 24 hours. The patient denies having any significant shortness of breath or chest pain. Nevertheless, repeat chest x-ray was done and the findings are essentially unchanged. The patient continues to have diffuse interstitial changes bilaterally along with smaller lung volumes and cardiomegaly. The possibility of acute interstitial p neumonia/pneumonitis cannot be completely ruled out. Other possibilities include acute interstitial pneumonias, eosinophilic pneumonias, acute lung injury. CHF with fluid overload cannot be completely ruled out and the patient is currently on IV Lasix 40 mg every 24 hours. Remains on bronchodilators. Remains on steroids. No history of connective tissue disease and the peritoneal disease markers will be also obtained. Remains on IV cefepime. On 11/28/2024, the patient is being seen for a follow-up. Feels well. Oxygenation continues to gradually improving this morning, the patient remains on Airvo 45 L with an FiO2 of 45%. Receiving Lasix 40 mg IV every 24 hours and producing excellent urine output. Remains in negative fluid balance of 1.1 L over the past 24 hours. Continues to have crackles in the lung bases however clinically the patient reports that he is improving considerably. The white cell count of 19.7, hemoglobin is 11.8 and BUN is 43 with a creatinine of 1.09 and sodium is at 137. Started on steroids yesterday. Remains on IV cefepime. The connective tissue disease markers sent yesterday came back negative including negative rheumatoid factor, RAMESH and ANCA and RAMESH screen. On today's evaluation of 11/29/2024, the patient is feeling well and denies having any significant shortness of breath at rest. He remains on Airvo 40 L with an FiO2 of 40%. He remains on IV Lasix and is producing excellent urine output. Fluid balance -1.1 L over the past 24 hours. He is able to sit up in a chair. No nausea. No vomiting. No chest pain or abdominal pain. His white cell count is elevated at 31.8 and this is higher compared to yesterday. BUN 48 with a creatinine of 1.1 and sodium is at 136. Glucose at 278. Otherwise, he remains on the same treatment with oxygen therapy including Airvo, DuoNeb updrafts, IV Lasix 40 mg every 24 hours, Lantus insulin 20 units daily along with NovoLog send scale coverage the patient remains on IV Solu-Medrol. Objective - Vital Signs Vital signs: Vital Signs Temp 97.5 F L 11/29/24 07:50 Pulse 62 11/29/24 07:50 Resp 18 11/29/24 07:50 BP 111/68 11/29/24 07:50 Pulse Ox 96 11/29/24 08:12 FiO2 40 11/29/24 08:12 Intake & Output 11/28/24 11/29/24 11/29/24 18:59 06:59 18:59 Intake Total 698 490 Output Total 1350 500 Balance -652 -10 Weight 123 kg Intake: IV 10 Invasive Line 5 10 Intake, IV Titration 100 Amount Cefepime 2 gm In Sodium 100 Chloride 0.9% 100 ml @ 25 mls/hr IVPB Q8H [facility] Rx#: [id number] Oral 598 480 Output: Urine 1350 500 Other: Voiding Method Indwelling Catheter Indwelling Catheter Indwelling Catheter - Exam No acute distress, oriented 3. The patient is currently on Airvo. Settings are 40 L and FiO2 40% %. The patient is able to speak in full sentences without difficulty. HEENT examination is grossly unremarkable. Mucous membranes are moist. No oral lesions. Neck supple. Full range of motion. No adenopathy thyromegaly or neck vein distention. Cardiovascular examination reveals regular rhythm rate. S1-S2 normal. No S3 or S4. No discernible murmur noted. Heart sounds are distant. Lungs reveal mild scattered rhonchi. No wheezes. Bibasilar crackles are still present. Breath sounds equal bilaterally. Abdomen soft bowel sounds are heard. No masses or tenderness. Extremities are intact. No cyanosis clubbing or edema. Skin is without rash or lesion. Neurologic examination is brief but nonfocal. - Labs CBC & Chem 7: 11/29/24 07:36 11/29/24 07:36 Labs: Abnormal Lab Results - Last 24 Hours (Table) 11/28/24 11/28/24 11/28/24 Range/Units 11:42 16:40 20:08 WBC (3.8-10.6) k/uL RBC (4.30-5.90) m/uL Hgb (13.0-17.5) gm/dL Hct (39.0-53.0) % Neutrophils # (1.3-7.7) k/uL Lymphocytes # (1.0-4.8) k/uL Sodium (137-145) mmol/L Chloride (98-107) mmol/L Carbon Dioxide (22-30) mmol/L BUN (9-20) mg/dL Glucose (74-99) mg/dL POC Glucose (mg/dL) 335 H 382 H 457 H (70-110) mg/dL 11/29/24 11/29/24 11/29/24 Range/Units 06:01 07:36 07:36 WBC 31.8 H (3.8-10.6) k/uL RBC 3.89 L (4.30-5.90) m/uL Hgb 12.1 L (13.0-17.5) gm/dL Hct 37.0 L (39.0-53.0) % Neutrophils # 12.4 H (1.3-7.7) k/uL Lymphocytes # 17.7 H (1.0-4.8) k/uL Sodium 136 L (137-145) mmol/L Chloride 95 L (98-107) mmol/L Carbon Dioxide 33 H (22-30) mmol/L BUN 48 H (9-20) mg/dL Glucose 231 H (74-99) mg/dL POC Glucose (mg/dL) 263 H (70-110) mg/dL 11/29/24 11/29/24 Range/Units 07:58 11:08 WBC (3.8-10.6) k/uL RBC (4.30-5.90) m/uL Hgb (13.0-17.5) gm/dL Hct (39.0-53.0) % Neutrophils # (1.3-7.7) k/uL Lymphocytes # (1.0-4.8) k/uL Sodium (137-145) mmol/L Chloride (98-107) mmol/L Carbon Dioxide (22-30) mmol/L BUN (9-20) mg/dL Glucose (74-99) mg/dL POC Glucose (mg/dL) 278 H 249 H (70-110) mg/dL Assessment and Plan Plan: Acute hypoxemic respiratory failure, with diffuse bilateral groundglass pulm onary filtrates. Rule out atypical pneumonia versus CHF/interstitial edema. The patient remains on Airvo at 40 L with an FiO2 of 40 %. Echocardiogram shows a preserved LV function. CAT scan of the chest shows no evidence of any pulm embolism and diffuse groundglass bilateral pulmonary filtrates. Chest x-ray shows unchanged the patient is scattered interstitial pulmonary filtrates bilaterally. Consider interstitial edema versus atypical pneumonia. Rule out also acute lung injury, acute interstitial pneumonitis, acute hypersensitive pneumonitis, acute eosinophilic pneumonitis. Connective tissue disease markers were negative. The patient is currently on IV steroids and diuretics and there is ongoing improvement in his oxygenation. He is responding. Acute kidney injury, recovered Acute Non-ST segment elevation myocardial infarction. coronary artery disease. History of diabetes mellitus type II currently on Levemir insulin History of hypertension. History of gastroesophageal reflux disease. History of chronic lymphocytic leukemia, in remission. History of osteoarthritis. Plan: Titrate oxygen flow to maintain saturation above 90%. Currently on Airvo. The patient has been weaned down to an FiO2 of 40 L with an FiO2 of 40% Continue Lasix 40 mg IV e every 24 hours and the patient remains negative fluid balance IV fluids to KVO Monitor renal function Ultrasound the kidneys shows no evidence of any hydronephrosis IV cefepime as an empiric antibiotic coverage Continue Solu-Medrol 60 mg every 6 hours Check rheumatologic markers including RF, RAMESH, BENTLEY screen and ANCA screen and all of those came back negative proBNP level was elevated at time of admission. Procalcitonin levels are nonelevated. The viral screen was negative. Legionella urine antigen was negative. CT of the chest was noted Echo was noted Continue rest of the medications Will continue to follow.
[2024-11-29 16:13] LABS: Glucose,Whole Blood 364 mg/dL (70-110)
[2024-11-29] MEDS: INSULIN GLARGINE (LANTUS) 100 UNIT/ML SYR SQ SCH (20:35)
[2024-11-29 20:41] LABS: Glucose,Whole Blood 271 mg/dL (70-110)
[2024-11-30 06:24] LABS: Glucose,Whole Blood 191 mg/dL (70-110)
[2024-11-30 07:27] LABS: African American GFR (CKD) 65 (>60 ml/min/1.73 sqM); Anion Gap 3 mmol/L; Blood Urea Nitrogen 40 mg/dL (9-20); Calcium 8.4 mg/dL (8.4-10.2); Carbon Dioxide 37 mmol/L (22-30); Chloride 94 mmol/L (98-107); Glucose 164 mg/dL (74-99); Magnesium 2.4 mg/dL (1.6-2.3); Non-African American GFR(CKD) 56 (>60 ml/min/1.73 sqM); Potassium 3.8 mmol/L (3.5-5.1); Sodium 134 mmol/L (137-145)
[2024-11-30 07:48] LABS: HCT 34.6 % (39.0-53.0); HGB 11.8 gm/dL (13.0-17.5); MCH 31.2 pg (25.0-35.0); MCHC 34.1 g/dL (31.0-37.0); MCV 91.5 fL (80.0-100.0); Mean Platelet Volume 9.1; Platelet Count 216 k/uL (150-450); RBC 3.78 m/uL (4.30-5.90); RDW 14.2 % (11.5-15.5); WBC 26.6 k/uL (3.8-10.6)
[2024-11-30 08:48] LABS: Band Neutrophils % 1 %; Lymphocytes # (M) 14.63 k/uL (1.0-4.8); Neutrophils % (M) 43 %; Nucleated Red Blood Cells 0 /100 WBC (0-0); Total Cells Counted 200
[2024-11-30 08:49] LABS: Poikilocytosis (M) Present
[2024-11-30] MEDS: ZINC OXIDE PASTE (Z-GUARD) 1 APPLIC TOPICAL PRN (10:20)
[2024-11-30 11:56] LABS: Glucose,Whole Blood 163 mg/dL (70-110)
[2024-11-30] MEDS: CEFEPIME 2 GM in SODIUM CHLORIDE 0.9% 100 ML IVPB SCH (12:23)
--- NOTE | 2024-11-30 14:12 | P.PN ---
Subjective Progress Note Date: 11/30/24 79-year-old male who presented to the emergency department, on November 20, complaining of nausea, vomiting, diarrhea, and mental status changes. The patient was brought into the emergency department, by EMS, and apparently he was quite confused, and disoriented, when they initially evaluated him. He a pparently was having GI episodes, including vomiting, nausea, and diarrhea. He denies having any chest pain or shortness of breath although his saturations were in the low 80s. He was placed on oxygen therapy, and brought into the hospital. When he was in the ER, he was apparently alert and oriented x 3. He was feeling a bit short of breath. We were consulted today, because the patient's respiratory status has declined, and he is currently on Airvo, with settings of 60 L/min, and an FiO2 of 75%. The patient was thought to have a non-ST segment elevation myocardial infarction, and pneumonia. He was on IV heparin, and saline at 20 cc an hour, as well as vancomycin, and cefepime. His procalcitonin level was 0.21. Current laboratory data includes a white count of 16.9, hemoglobin 11.9, hematocrit 35.5, and a platelet count of 155,000. A blood gas done yesterday shows a pO2 of 62, pCO2 42, and a pH of 7.41. This apparently was on 100% oxygen. Sodium 135, potassium 3.3, chloride 95, CO2 30, anion gap 10, BUN 19, creatinine 1.06. Glucose 296. Hemoglobin A1c was 6.9. Albumin was 3.5. N-terminal proBNP was 2750. Blood cultures were negative. Chest x-ray showed bilateral multifocal airspace opacities, which have improved. Progress note dated November 23, 2024. 79-year-old male seen in consultation yesterday. Please see my note above. The patient is seen today in room 369. He continues on Airvo, 60 L/min and FiO2 of 75%. In addition, the patient continues on cefepime and vancomycin, his procalcitonin level was normal at 0.21. He is also on IV heparin. He states he feels about the same today as he did yesterday, no better, and no worse. White count 18.7, hemoglobin 9.3, hematocrit 33.4, platelet count 156,000. PTT is 56.4. Sodium 136, potassium 3.5, chlorides 100, CO2 29, BUN 24, creatinine 0.93. Glucose 171. Calcium 8.6. Bilirubin 1.5. Albumin 3.2. On 11/24/2024, the patient is being seen for a follow-up. The patient remains quite hypoxic. On today's evaluation, the patient remains on Airvo at 60 L with FiO2 of 70%. The chest x-ray from 11/21/2024 showed improved aeration of both lungs with persistent multifocal airspace opacities. The patient's blood work showed a procalcitonin level of 0.2 at the time of admission x 2 and a proBNP le bryson was 2750. On today's blood work, sodium levels at 135, potassium level is 3.4, BUN 23 with a creatinine of 0.8. LFTs are essentially within normal limits. The patient remains on IV cefepime. The patient will be started on IV Lasix. The patient is also on DuoNeb nebulized treatments [id number], IV hydrocortisone, Levemir insulin 15 units at bedtime and the patient is on metoprolol 25 mg p.o. twice a day. Rest of the medications remain unchanged. Echocardiogram was done on 11/21/2024 indicating a ejection fraction of 50 to 55%, inferolateral wall hypokinesis, no significant valvular abnormalities. The CTA of the chest done on 11/20/2024 revealed no pulmonary embolism and diffuse patchy groundglass pulmonary opacities could relate to interstitial edema versus atypical pulmonary infection and the patient also has evidence of cholelithiasis. The viral screen was negative and Legionella urine antigen was negative at the time of admission. Mental status is appropriate at this point. On 11/25/2024, the patient is still hypoxic, maintained on Airvo at 60 L with an FiO2 of 65%. No significant improvement in oxygenation over the past 24 hours. Noted the patient was started on diuretics yesterday. He remains on IV Lasix and the dose has been switched to 40 mg every 24 hours. Fluid balance -2.9 L over the past 24 hours. The patient has a white cell count of 16.7 with a hemoglobin 11.4 and a platelet count of 158. BUN 34 and the creatinine is up to 1.3. Sodium levels at 141. The patient remains on DuoNeb nebulized treatments [id number]. Remains on IV cefepime. Remains on IV Lasix 40 mg every 24 hours. Rest of the medications remain essentially unchanged. Ultrasound of the kidneys and bladder showed no evidence of any hydronephrosis. The most recent chest x-ray is from 11/22/2024 and it shows improved aeration of the lungs with persistent multifocal airspace opacities. A follow-up chest x-ray is to be obtained for tomorrow.Echocardiogram was done on 11/21/2024 indicating a ejection fraction of 50 to 55%, inferolateral wall hypokinesis, no significant valvular abnormalities. The CTA of the chest done on 11/20/2024 revealed no pulmonary embolism and diffuse patchy groundglass pulmonary opacities could relate to interstitial edema versus atypical pulmonary infection and the patient also has evidence of cholelithiasis. The viral screen was negative and Legionella urine antigen was negative at the time of admission. On 11/26/2024, patient is being seen for a follow-up. This patient remains hypoxic. As mentioned, the patient has developed diffuse groundglass bilateral pulmonary filtrates. Suspected interstitial edema and based on that the patient was started on diuretics. The patient remains on Lasix with a negative fluid balance of 2.9 L and -360 cc over the past 24 hours. Remains on IV Lasix at a dose of 40 mg on a daily basis. On today's blood work, the patient's BUN is 46 with a creatinine of 1.2. Sodium levels at 139 and the potassium level is at 4.2. The patient has a white cell count of 19 with a hemoglobin of 4.3 and a platelet count of 165. He remains on Airvo. The current settings are 60 L with an FiO2 of 55%. A follow-up chest x-ray was obtained today and the chest x-ray is showing scattered airspace opacities throughout the lung and this could essentially present pulmonary edema versus atypical pneumonia. The patient has cardiomegaly. The patient remains on DuoNeb nebulized treatments around-the- clock. The patient remains on IV cefepime. The patient remains on IV hydrocortisone. Remains on Levemir insulin 15 units at bedtime and insulin scale coverage. Remains on metoprolol 25 mg p.o. daily. He is able to sit up on a chair. Using incentive spirometer. On 11/27/2024, patient is being seen for a follow-up. The patient is still dependent on Airvo. This morning, the patient is on a flow of 55 L and FiO2 50%. Fluid balance -410 cc over the past 24 hours. The patient denies having any significant shortness of breath or chest pain. Nevertheless, repeat chest x-ray was done and the findings are essentially unchanged. The patient continues to have diffuse interstitial changes bilaterally along with smaller lung volumes and cardiomegaly. The possibility of acute interstitial p neumonia/pneumonitis cannot be completely ruled out. Other possibilities include acute interstitial pneumonias, eosinophilic pneumonias, acute lung injury. CHF with fluid overload cannot be completely ruled out and the patient is currently on IV Lasix 40 mg every 24 hours. Remains on bronchodilators. Remains on steroids. No history of connective tissue disease and the peritoneal disease markers will be also obtained. Remains on IV cefepime. On 11/28/2024, the patient is being seen for a follow-up. Feels well. Oxygenation continues to gradually improving this morning, the patient remains on Airvo 45 L with an FiO2 of 45%. Receiving Lasix 40 mg IV every 24 hours and producing excellent urine output. Remains in negative fluid balance of 1.1 L over the past 24 hours. Continues to have crackles in the lung bases however clinically the patient reports that he is improving considerably. The white cell count of 19.7, hemoglobin is 11.8 and BUN is 43 with a creatinine of 1.09 and sodium is at 137. Started on steroids yesterday. Remains on IV cefepime. The connective tissue disease markers sent yesterday came back negative including negative rheumatoid factor, RAMESH and ANCA and RAMESH screen. On today's evaluation of 11/29/2024, the patient is feeling well and denies having any significant shortness of breath at rest. He remains on Airvo 40 L with an FiO2 of 40%. He remains on IV Lasix and is producing excellent urine output. Fluid balance -1.1 L over the past 24 hours. He is able to sit up in a chair. No nausea. No vomiting. No chest pain or abdominal pain. His white cell count is elevated at 31.8 and this is higher compared to yesterday. BUN 48 with a creatinine of 1.1 and sodium is at 136. Glucose at 278. Otherwise, he remains on the same treatment with oxygen therapy including Airvo, DuoNeb updrafts, IV Lasix 40 mg every 24 hours, Lantus insulin 20 units daily along with NovoLog send scale coverage the patient remains on IV Solu-Medrol. On 11/30/2024, the patient is calm and comfortable. Oxygenation is improved and the patient is currently on 80 reduction by nasal cannula with a pulse ox of 99%. Continues to diurese well with IV Lasix. He is a negative fluid balance of 800 cc over the past 24 hours. Producing adequate amount of urine output. The white cell count of 26 with a hemoglobin of 11.8 and a platelet count of 216. BUN is 40 with a creatinine 1.2 and a sodium levels at 134 and a potassium level of 3.8. Continues to be on DuoNeb nebulized treatments [id number]. Continues to be on IV cefepime. Remains on Lantus insulin 20 units daily and NovoLog 5 units with meals. Remains on IV Solu-Medrol. Remains on a combinati on of aspirin and Plavix. Lasix 40 mg IV every 24 hours. No other new complaints otherwise for now. Resting comfortably in bed. Objective - Vital Signs Vital signs: Vital Signs Temp 97.5 F L 11/30/24 07:34 Pulse 55 L 11/30/24 07:34 Resp 16 11/30/24 07:34 BP 127/67 11/30/24 07:34 Pulse Ox 95 11/30/24 09:23 FiO2 37 11/29/24 15:46 Intake & Output 11/29/24 11/30/24 11/30/24 18:59 06:59 18:59 Intake Total 980 480 Output Total 5372 477 6189 Balance -320 -500 -820 Weight 124.5 kg Intake: IV 10 Invasive Line 5 10 Oral 970 480 Output: Urine 4602 006 9663 Other: Voiding Method Indwelling Catheter Indwelling Catheter Indwelling Catheter # Bowel Movements 1 0 - Exam No acute distress, oriented 3. The patient is currently off Airvo and the patient is currently on 8 L of oxygen by nasal cannula HEENT examination is grossly unremarkable. Mucous membranes are moist. No oral lesions. Neck supple. Full range of motion. No adenopathy thyromegaly or neck vein distention. Cardiovascular examination reveals regular rhythm rate. S1-S2 normal. No S3 or S4. No discernible murmur noted. Heart sounds are distant. Lungs reveal mild scattered rhonchi. No wheezes. Bibasilar crackles are still present. Breath sounds equal bilaterally. Abdomen soft bowel sounds are heard. No masses or tenderness. Extremities are intact. No cyanosis clubbing or edema. Skin is without rash or lesion. Neurologic examination is brief but nonfocal. - Labs CBC & Chem 7: 11/30/24 06:39 11/30/24 06:39 Labs: Abnormal Lab Results - Last 24 Hours (Table) 11/29/24 11/29/24 11/29/24 Range/Units 11:08 16:10 20:12 WBC (3.8-10.6) k/uL RBC (4.30-5.90) m/uL Hgb (13.0-17.5) gm/dL Hct (39.0-53.0) % Neutrophils # (Manual) (1.3-7.7) k/uL Lymphocytes # (Manual) (1.0-4.8) k/uL Sodium (137-145) mmol/L Chloride (98-107) mmol/L Carbon Dioxide (22-30) mmol/L BUN (9-20) mg/dL Glucose (74-99) mg/dL POC Glucose (mg/dL) 249 H 364 H 271 H (70-110) mg/dL Magnesium (1.6-2.3) mg/dL 11/30/24 11/30/24 11/30/24 Range/Units 06:01 06:39 06:39 WBC 26.6 H (3.8-10.6) k/uL RBC 3.78 L (4.30-5.90) m/uL Hgb 11.8 L (13.0-17.5) gm/dL Hct 34.6 L (39.0-53.0) % Neutrophils # (Manual) 11.70 H (1.3-7.7) k/uL Lymphocytes # (Manual) 14.63 H (1.0-4.8) k/uL Sodium 134 L (137-145) mmol/L Chloride 94 L (98-107) mmol/L Carbon Dioxide 37 H (22-30) mmol/L BUN 40 H (9-20) mg/dL Glucose 164 H (74-99) mg/dL POC Glucose (mg/dL) 191 H (70-110) mg/dL Magnesium 2.4 H (1.6-2.3) mg/dL Assessment and Plan Plan: Acute hypoxemic respiratory failure, with diffuse bilateral groundglass pulmonary filtrates. Rule out atypical pneumonia versus CHF/interstitial edema. The patient oxygenation improved and the patient is currently off Airvo, maintained on oxygen at 8 L/min nasal cannula.. Echocardiogram shows a preserved LV function. CAT scan of the chest shows no evidence of any pulm embolism and diffuse groundglass bilateral pulmonary filtrates. Chest x-ray shows unchanged the patient is scattered interstitial pulmonary filtrates bilaterally. Consider interstitial edema versus atypical pneumonia. Rule out also acute lung injury, acute interstitial pneumonitis, acute hypersensitive pneumonitis, acute eosinophilic pneumonitis. Connective tissue disease markers were negative. The patient is currently on IV steroids and diuretics and there is ongoing improvement in his oxygenation. He is responding. The patient was taken off the Airvo and the patient is currently on 8 L of O2 nasal cannula. Acute kidney injury, recovered Acute Non-ST segment elevation myocardial infarction. coronary artery disease. History of diabetes mellitus type II currently on Levemir insulin History of hypertension. History of gastroesophageal reflux disease. History of chronic lymphocytic leukemia, in remission. History of osteoarthritis. Plan: Titrate oxygen flow to maintain saturation above 90%. Airvo has been discontinued and the patient is currently on 8 L of oxygen by nasal cannula Continue Lasix 40 mg IV e every 24 hours and the patient remains negative fluid balance IV fluids to KVO Monitor renal function Ultrasound the kidneys shows no evidence of any hydronephrosis IV cefepime as an empiric antibiotic coverage Continue Solu-Medrol 60 mg every 6 hours Check rheumatologic markers including RF, RAMESH, BENTLEY screen and ANCA screen and all of those came back negative proBNP level was elevated at time of admission. Procalcitonin levels are nonelevated. The viral screen was negative. Legionella urine antigen was negative. CT of the chest was noted Echo was noted Continue rest of the medications Will continue to follow. Time with Patient: Greater than 30
--- NOTE | 2024-11-30 16:06 | P.PN ---
Subjective Progress Note Date: 11/30/24 Patient was seen and examined. Feeling well. No complaints. Now on 6L HFNC saturating high 90s. Maintained on Lasix 40 mg IV QD. Negative 820 cc fluid balance over the past 24H. CBC and BMP significant for WBC 26.6, RBC 3.78, Hg 11.8, Hct 34.6, Na 134, Cl 94, bicarb 37, BUN 40, glu 164. Mag 2.4. General: non toxic, no distress, appears at stated age Derm: warm, dry Head: atraumatic, normocephalic, symmetric Eyes: EOMI, no lid lag, anicteric sclera Mouth: no lip lesion, mucus membranes moist Cardiovascular: S1S2 reg, no murmur Lungs: Decreased BS bilateral, no rhonchi, no rales , no accessory muscle use Ext: no gross muscle atrophy, no edema, no contractures Neuro: no focal neuro deficits Psych: Alert, oriented, appropriate affect Based on my assessment of this patient, this patient meets a high complexity level of care. Acute hypoxic respiratory failure and sepsis due to multifocal PNA and ARDS: Supplemental O2 to maintain O2 sat > 92%. DuoNeb Q4H PRN SOB. Cefepime 2g IV BID. SoluMedrol 60 mg IV Q6H. Pulmonary on board. NSTEMI: Status post 48H heparin infusion. ASA 81 mg PO QD. Lipitor 80 mg PO QD. Plavix 75 mg PO QD. Metoprolol as below. Outpatient stress test per Cardiology. Prerenal azotemia with hypochloremic hyponatremia and metabolic alkalosis: Likely contraction alkalosis from Lasix use. Monitor daily renal function. DM with hyperglycemia: ISS with Accuchecks ACHS. Hypoglycemic precautions. Levemir 20 units QHS. Lispro 5 units TID. Right foot wound: Wound care on board. Hypertension: Lisinopril 20 mg PO QD. Metoprolol 25 mg PO QD. History of CLL: In remission. Outpatient follow up. CODE STATUS: FULL CODE DVT Prophylaxis: Heparin SQ. GI Prophylaxis: Protonix 40 mg PO QD. Designated medical POA if patient is not able to make medical decisions for themselves: I have reviewed the following insurance healthcare consultant notes: Pulmonary I have reviewed the results of the following tests: CBC, BMP. Mag. I have ordered the following tests: BMP. Mag. I have discussed the care of this patient with the following independent historian: I have independently interpreted the following test below: I have discussed the management of this patient with the following physician: Objective - Vital Signs Vital signs: Vital Signs Temp 97.5 F L 11/30/24 07:34 Pulse 58 L 11/30/24 15:48 Resp 16 11/30/24 15:48 BP 122/68 11/30/24 15:48 Pulse Ox 99 11/30/24 15:48 FiO2 37 11/29/24 15:46 Intake & Output 11/29/24 11/30/24 11/30/24 18:59 06:59 18:59 Intake Total 980 1138 Output Total 9785 851 1388 Balance -320 -500 -812 Weight 124.5 kg Intake: IV 10 Invasive Line 5 10 Oral 970 1138 Output: Urine 6299 610 4526 Other: Voiding Method Indwelling Catheter Indwelling Catheter Indwelling Catheter # Bowel Movements 1 0 - Labs CBC & Chem 7: 11/30/24 06:39 11/30/24 06:39 Labs: Abnormal Lab Results - Last 24 Hours (Table) 11/29/24 11/29/24 11/30/24 Range/Units 16:10 20:12 06:01 WBC (3.8-10.6) k/uL RBC (4.30-5.90) m/uL Hgb (13.0-17.5) gm/dL Hct (39.0-53.0) % Neutrophils # (Manual) (1.3-7.7) k/uL Lymphocytes # (Manual) (1.0-4.8) k/uL Sodium (137-145) mmol/L Chloride (98-107) mmol/L Carbon Dioxide (22-30) mmol/L BUN (9-20) mg/dL Glucose (74-99) mg/dL POC Glucose (mg/dL) 364 H 271 H 191 H (70-110) mg/dL Magnesium (1.6-2.3) mg/dL 11/30/24 11/30/24 11/30/24 Range/Units 06:39 06:39 11:55 WBC 26.6 H (3.8-10.6) k/uL RBC 3.78 L (4.30-5.90) m/uL Hgb 11.8 L (13.0-17.5) gm/dL Hct 34.6 L (39.0-53.0) % Neutrophils # (Manual) 11.70 H (1.3-7.7) k/uL Lymphocytes # (Manual) 14.63 H (1.0-4.8) k/uL Sodium 134 L (137-145) mmol/L Chloride 94 L (98-107) mmol/L Carbon Dioxide 37 H (22-30) mmol/L BUN 40 H (9-20) mg/dL Glucose 164 H (74-99) mg/dL POC Glucose (mg/dL) 163 H (70-110) mg/dL Magnesium 2.4 H (1.6-2.3) mg/dL
[2024-11-30 16:49] LABS: Glucose,Whole Blood 256 mg/dL (70-110)
[2024-11-30 20:05] LABS: Glucose,Whole Blood 314 mg/dL (70-110)
[2024-12-01 06:10] LABS: Glucose,Whole Blood 315 mg/dL (70-110)
[2024-12-01 10:43] VITALS: BMI 26.1
[2024-12-01 12:13] LABS: Glucose,Whole Blood 413 mg/dL (70-110)
--- NOTE | 2024-12-01 14:50 | P.PN ---
Subjective Progress Note Date: 12/01/24 Patient was seen and examined. Feeling well. No complaints. Now on 2L NC saturating high 90s. Maintained on Lasix 40 mg IV QD. Negative 1142 cc fluid balance over the past 24H. POC glucose 163-413 over the past 24H. General: non toxic, no distress, appears at stated age Derm: warm, dry Head: atraumatic, normocephalic, symmetric Eyes: EOMI, no lid lag, anicteric sclera Mouth: no lip lesion, mucus membranes moist Cardiovascular: S1S2 reg, no murmur Lungs: Decreased BS bilateral, no rhonchi, no rales , no accessory muscle use Ext: no gross muscle atrophy, no edema, no contractures Neuro: no focal neuro deficits Psych: Alert, oriented, appropriate affect Based on my assessment of this patient, this patient meets a high complexity level of care. Acute hypoxic respiratory failure and sepsis due to multifocal PNA and ARDS: Supplemental O2 to maintain O2 sat > 92%. DuoNeb Q4H PRN SOB. Cefepime 2g IV BID. SoluMedrol 60 mg IV Q6H. Pulmonary on board. NSTEMI: Status post 48H heparin infusion. ASA 81 mg PO QD. Lipitor 80 mg PO QD. Plavix 75 mg PO QD. Metoprolol as below. Outpatient stress test per Cardiology. Prerenal azotemia with hypochloremic hyponatremia and metabolic alkalosis: Likely contraction alkalosis from Lasix use. Monitor daily renal function. DM with hyperglycemia: ISS with Accuchecks ACHS. Hypoglycemic precautions. Levemir 20 units QHS. Lispro 5 units TID. Right foot wound: Wound care on board. Hypertension: Lisinopril 20 mg PO QD. Metoprolol 25 mg PO QD. History of CLL: In remission. Outpatient follow up. CODE STATUS: FULL CODE DVT Prophylaxis: Heparin SQ. GI Prophylaxis: Protonix 40 mg PO QD. Designated medical POA if patient is not able to make medical decisions for themselves: I have reviewed the following application consultant notes: I have reviewed the results of the following tests: POC glucose. I have ordered the following tests: BMP in the AM. I have discussed the care of this patient with the following independent historian: SAUNDRA. Case management, plans for SNF when accepted, PT/OT asked to re- evaluate. I have independently interpreted the following test below: I have discussed the management of this patient with the following physician: Objective - Vital Signs Vital signs: Vital Signs Temp 97.5 F L 12/01/24 10:12 Pulse 89 12/01/24 12:19 Resp 18 12/01/24 12:19 BP 145/77 12/01/24 12:19 Pulse Ox 95 12/01/24 12:19 FiO2 37 11/29/24 15:46 Intake & Output 11/30/24 12/01/24 12/01/24 18:59 06:59 18:59 Intake Total 1138 218 480 Output Total 1950 550 300 Balance -812 -332 180 Weight 87.4 kg 87.4 kg Intake: Intake, IV Titration 100 Amount Cefepime 2 gm In Sodium 100 Chloride 0.9% 100 ml @ 25 mls/hr IVPB Q12H [facility] Rx# :[id number] Oral 1138 118 480 Output: Urine 1950 550 300 Other: Voiding Method Indwelling Catheter Indwelling Catheter Indwelling Catheter # Bowel Movements 0 - Labs CBC & Chem 7: 11/30/24 06:39 11/30/24 06:39 Labs: Abnormal Lab Results - Last 24 Hours (Table) 11/30/24 11/30/24 12/01/24 Range/Units 16:47 20:04 06:08 POC Glucose (mg/dL) 256 H 314 H 315 H (70-110) mg/dL 12/01/24 Range/Units 11:39 POC Glucose (mg/dL) 413 H (70-110) mg/dL
[2024-12-01 15:51] LABS: Glucose,Whole Blood 451 mg/dL (70-110)
--- NOTE | 2024-12-01 17:31 | P.PN ---
Subjective Progress Note Date: 12/01/24 On today's evaluation of 11/29/2024, the patient is feeling well and denies having any significant shortness of breath at rest. He remains on Airvo 40 L with an FiO2 of 40%. He remains on IV Lasix and is producing excellent urine output. Fluid balance -1.1 L over the past 24 hours. He is able to sit up in a chair. No nausea. No vomiting. No chest pain or abdominal pain. His white cell count is elevated at 31.8 and this is higher compared to yesterday. BUN 48 with a creatinine of 1.1 and sodium is at 136. Glucose at 278. Otherwise, he remains on the same treatment with oxygen therapy including Airvo, DuoNeb updrafts, IV Lasix 40 mg every 24 hours, Lantus insulin 20 units daily along with NovoLog send scale coverage the patient remains on IV Solu-Medrol. On 11/30/2024, the patient is calm and comfortable. Oxygenation is improved and the patient is currently on 80 reduction by nasal cannula with a pulse ox of 99%. Continues to diurese well with IV Lasix. He is a negative fluid balance of 800 cc over the past 24 hours. Producing adequate amount of urine output. The white cell count of 26 with a hemoglobin of 11.8 and a platelet count of 216. BUN is 40 with a creatinine 1.2 and a sodium levels at 134 and a potassium level of 3.8. Continues to be on DuoNeb nebulized treatments [id number]. Continues to be on IV cefepime. Remains on Lantus insulin 20 units daily and NovoLog 5 units with meals. Remains on IV Solu-Medrol. Remains on a combination of aspirin and Plavix. Lasix 40 mg IV every 24 hours. No other new complaints otherwise for now. Resting comfortably in bed. The patient is seen today December 01, 2024 in follow-up on the selective care unit. He is currently sitting up at the bedside. Awake and alert in no acute distress. Maintaining good O2 saturations in the 90s on 2 L/min per nasal cannula. No worsening shortness of breath, cough or congestion. Glucose 451. He remains on Lantus and Humalog. He is continued on DuoNeb inhalations, Solu- Medrol and Singulair. He remains on heparin for DVT prophylaxis. Continued on Lasix daily. Currently in a -1.1 L balance. Currently on cefepime. Objective - Vital Signs Vital signs: Vital Signs Temp 97.8 F 12/01/24 16:11 Pulse 77 12/01/24 16:11 Resp 18 12/01/24 16:11 BP 111/69 12/01/24 16:11 Pulse Ox 94 L 12/01/24 16:11 FiO2 37 11/29/24 15:46 Intake & Output 11/30/24 12/01/24 12/01/24 18:59 06:59 18:59 Intake Total 1138 218 480 Output Total 1950 550 300 Balance -812 -332 180 Weight 87.4 kg 87.4 kg Intake: Intake, IV Titration 100 Amount Cefepime 2 gm In Sodium 100 Chloride 0.9% 100 ml @ 25 mls/hr IV[facility] Q[facility]H [facility] Rx# :[id number] Oral 1138 118 480 Output: Urine 1950 550 300 Other: Voiding Method Indwelling Catheter Indwelling Catheter Indwelling Catheter # Bowel Movements 0 - Exam GENERAL EXAM: Alert, active, 79-year-old male, on 2 L nasal cannula, up in a chair, comfortable in no apparent distress. HEAD: Normocephalic. EYES: Normal reaction of pupils, equal size. NOSE: Clear with pink turbinates. THROAT: No erythema or exudates. NECK: No masses, no JVD. CHEST: No chest wall deformity. LUNGS: Equal air entry with few scattered rhonchi. CVS: S1 and S2 normal with no audible murmur, regular rhythm. ABDOMEN: No hepatosplenomegaly, normal bowel sounds, no guarding or rigidity. SPINE: No scoliosis or deformity SKIN: No rashes CENTRAL NERVOUS SYSTEM: No focal deficits, tone is normal in all 4 extremities. EXTREMITIES: There is no peripheral edema. No clubbing, no cyanosis. Peripheral pulses are intact. - Labs CBC & Chem 7: 11/30/24 06:39 11/30/24 06:39 Labs: Abnormal Lab Results - Last 24 Hours (Table) 11/30/24 12/01/24 12/01/24 Range/Units 20:04 06:08 11:39 POC Glucose (mg/dL) 314 H 315 H 413 H (70-110) mg/dL 12/01/24 Range/Units 15:49 POC Glucose (mg/dL) 451 H (70-110) mg/dL Assessment and Plan Assessment: Acute hypoxemic respiratory failure, with diffuse bilateral groundglass pulmonary filtrates. Rule out atypical pneumonia versus CHF/interstitial edema. The patient oxygenation improved and the patient is currently off Airvo, maintained on oxygen at 8 L/min nasal cannula.. Echocardiogram shows a preserved LV function. CAT scan of the chest shows no evidence of any pulm embolism and diffuse groundglass bilateral pulmonary filtrates. Chest x-ray shows unchanged the patient is scattered interstitial pulmonary filtrates bilaterally. Consider interstitial edema versus atypical pneumonia. Rule out also acute lung injury, acute interstitial pneumonitis, acute hypersensitive pneumonitis, acute eosinophilic pneumonitis. Connective tissue disease markers were negative. The patient is currently on IV steroids and diuretics and there is ongoing improvement in his oxygenation. He is responding. The patient was taken off the Airvo and the patient is currently on 2 L of O2 nasal cannula. Acute kidney injury, recovered Acute Non-ST segment elevation myocardial infarction. coronary artery disease. History of diabetes mellitus type II currently on Levemir insulin History of hypertension. History of gastroesophageal reflux disease. History of chronic lymphocytic leukemia, in remission. History of osteoarthritis. Plan: The patient was seen and evaluated Labs and medications reviewed Decrease Solu-Medrol to 40 every 12 hours Continue bronchodilators Heparin for DVT prophylaxis Insulin being [facility] I have personally seen and examined the patient, performed the documentation and the assessment and plan as written. Number of minutes spent on the visit: 10 Dictation was produced using [employer] dictation software. Please excuse any grammatical, word or spelling errors. Time with Patient: Less than 30
[2024-12-01] MEDS: FLUTICASONE NASAL 50MCG/SPRAY 16GM BTL EA NOSTRIL SCH (17:34)
[2024-12-01 19:57] LABS: Glucose,Whole Blood 291 mg/dL (70-110)
[2024-12-01] MEDS: methylPREDNISolone SOD SUCCI 40 MG/ML 1 ML VIAL IV SCH (20:39)
[2024-12-02 05:57] LABS: Glucose,Whole Blood 219 mg/dL (70-110)
[2024-12-02 07:35] LABS: African American GFR (CKD) 67 (>60 ml/min/1.73 sqM); Anion Gap 6 mmol/L; Blood Urea Nitrogen 35 mg/dL (9-20); Calcium 8.8 mg/dL (8.4-10.2); Carbon Dioxide 36 mmol/L (22-30); Chloride 91 mmol/L (98-107); Glucose 197 mg/dL (74-99); Non-African American GFR(CKD) 58 (>60 ml/min/1.73 sqM); Potassium 3.4 mmol/L (3.5-5.1); Sodium 133 mmol/L (137-145)
[2024-12-02] MEDS: POTASSIUM CHLORIDE ER 20 MEQ TAB.ER PO STA (11:13)
[2024-12-02 11:15] LABS: Glucose,Whole Blood 201 mg/dL (70-110)
[2024-12-02] MEDS: INSULIN LISPRO (HumaLOG) 100 UNIT/ML 10 mL VL SQ SCH (13:02)
--- NOTE | 2024-12-02 14:52 | P.DS ---
Providers Date of admission: 11/20/24 21:33 Expected date of discharge: 12/02/24 Attending physician: Carmen Gardner MD Consults: 11/22/24 07:59 Consult Physician Routine Consulting Provider: Raymond Maddox Consult Reason/Comments: hypoxic respiratory failure Do you want consulting provider notified?: Yes Primary care physician: [facility] Course: 79-year-old male with past medical history significant for coronary artery disease, insulin-dependent diabetes mellitus, hypertension presents to the emergency department today due to altered mental status, hypoxia and complaints of vomiting, cough productive of green sputum, and myalgias. In the ED he underwent extensive evaluation. BP 148/75, CA 113 bpm, T 99.5 F, RR 20, O2 saturation 86% on room air. WBCs 13.2, RBC 3.69, hemoglobin 11.7, hematocrit 32.9, platelets 137, sodium 137, potassium 3.2, chloride 99, CO2 25, BUN 15, creatinine 0.9, total bilirubin 1.5, alkaline phosphatase 132, troponin x 2 0.043 and 0.091, total protein 6.1; urinalysis 1+ protein, trace glucose. EKG sinus tachycardia with ventricular rate of 118 bpm, QTc 384 ms, left axis deviation, left ventricular hypertrophy. CXR and Brain CT negative for acute process. CTA chest showed no evidence of pulmonary embolism, diffuse patchy groundglass pulmonary opacities suggestive of atypical pulmonary infection, cholelithiasis, fluid identified within the visualized esophagus. Patient was started on IV hydration, Rocephin/Azithromycin and admitted for further workup and management. Pulmonary and Cardiology consulted. Completed 48H heparin infusion for type II NSTEMI, Echo showed EF of 55% with inferolateral wall hypokinesia, Cardiology recommended outpatient follow up for ischemic workup. Respiratory status worsened, started on AirVo and antibiotics switched to Vancomycin and Cefepime. MRSA nares negative, Vancomycin discontinued, continued on Cefepime for a total of 10 days during his hospitalization. He also received Lasix 40 mg IV QD x 7 days. Eventually weaned off oxygen on 12/02. 12/02 Patient was seen and examined. Feeling well. Plans for SNF today. BMP Na 133, K 3.4, Cl 91, bicarb 36, BUN 35, glu 197. Mag 2.4. Maintained on Cefepime and Lasix IV. Discharge Plan: Continue DuoNeb PRN, Tylenol PRN. New prescriptions include Seroquel, Metorolol, Lisinopril, ASA, Plavix, Ceftin x 4 days, Lasix x 7 days and Prednisone taper. Repeat BMP in 3 days to be followed up with PCP. Follow up with Cardiology and Pulmonary within 1 week of discharge. Follow up with PCP within 1-2 days of discharge. Follow up with Wound Care PRN. General: non toxic, no distress, appears at stated age Derm: warm, dry Head: atraumatic, normocephalic, symmetric Eyes: EOMI, no lid lag, anicteric sclera Mouth: no lip lesion, mucus membranes moist Cardiovascular: S1S2 reg, no murmur Lungs: Decreased BS bilateral, no rhonchi, no rales , no accessory muscle use Ext: no gross muscle atrophy, no edema, no contractures Neuro: no focal neuro deficits Psych: Alert, oriented, appropriate affect Discharge Diagnosis: Acute hypoxic respiratory failure and sepsis due to multifocal PNA and ARDS NSTEMI Prerenal azotemia with hypochloremic hyponatremia and metabolic alkalosis Hypokalemia DM with hyperglycemia Right foot wound Hypertension History of CLL This complex discharge took 50 minutes to complete and coordinate. Patient Condition at Discharge: Stable Plan - Discharge Summary Discharge Rx Participant: No New Discharge Prescriptions: New Artificial Tears-Hypromellose [Artificial Tear Drops] 2 drops BOTH EYES TID PRN ml PRN Reason: Dry Eye(S) Acetaminophen Chew Tab [Children's Tylenol Chew Tab] 80 mg PO Q6HR PRN tab PRN Reason: Fever And/ Or Pain Ipratropium-Albuterol Nebulize [Duoneb 0.5 mg-3 mg/3 ml Soln] 3 ml INHALATION RT-Q4H PRN each PRN Reason: shortness of breath QUEtiapine [SEROquel] 25 mg PO HS tab Metoprolol Succinate (ER) [Toprol XL] 25 mg PO DAILY tab lisinopriL [Zestril] 20 mg PO DAILY tab Aspirin 81 mg PO DAILY tab Clopidogrel [Plavix] 75 mg PO DAILY tab predniSONE See Taper PO DIRECTED #30 tab Furosemide [Lasix] 40 mg PO DAILY #7 tablet Continue Montelukast Sodium [Singulair] 10 mg PO DAILY Fluticasone Nasal [place] [Flonase Nasal [place]] 2 spr EA NOSTRIL DAILY Atorvastatin [Lipitor] 80 mg PO DAILY Baclofen 10 - 20 mg PO DAILY Sucralfate [Carafate] 1 gm PO ACHS Insulin NPH Hum/Reg Insulin Hm [NovoLIN 70-30 100 Unit/ml Vial] 25 unit SQ DAILY Omeprazole 40 mg PO DAILY Insulin NPH Hum/Reg Insulin Hm [NovoLIN 70-30 100 Unit/ml Vial] 15 unit SQ HS cefuroxime axetiL [Ceftin] 500 mg PO BID #8 HYDROcodone/APAP 5-325MG [[place] 5-325] 1 tab PO Q6HR #12 tab ALPRAZolam [Xanax] 0.25 mg PO DAILY PRN #3 tab PRN Reason: Anxiety Changed Meclizine [Antivert] 25 mg PO TID PRN #0 PRN Reason: Vertigo Discontinued lisinopriL [Zestril] 20 mg PO BID Discharge Medication List Montelukast Sodium [Singulair] 10 mg PO DAILY 05/25/17 [History] Fluticasone Nasal [place] [Flonase Nasal [place]] 2 spr EA NOSTRIL DAILY 01/24/21 [History] Atorvastatin [Lipitor] 80 mg PO DAILY 03/08/21 [History] Omeprazole 40 mg PO DAILY 07/27/21 [History] Baclofen 10 - 20 mg PO DAILY 11/06/24 [History] Sucralfate [Carafate] 1 gm PO ACHS 11/06/24 [History] Insulin NPH Hum/Reg Insulin Hm [NovoLIN 70-30 100 Unit/ml Vial] 15 unit SQ HS 11/20/24 [History] Insulin NPH Hum/Reg Insulin Hm [NovoLIN 70-30 100 Unit/ml Vial] 25 unit SQ DAILY 11/20/24 [History] ALPRAZolam [Xanax] 0.25 mg PO DAILY PRN #3 tab 12/02/24 [Rx] Acetaminophen Chew Tab [Children's Tylenol Chew Tab] 80 mg PO Q6HR PRN tab 12/02/24 [Rx] Artificial Tears-Hypromellose [Artificial Tear Drops] 2 drops BOTH EYES TID PRN ml 12/02/24 [Rx] Aspirin 81 mg PO DAILY tab 12/02/24 [Rx] Clopidogrel [Plavix] 75 mg PO DAILY tab 12/02/24 [Rx] Furosemide [Lasix] 40 mg PO DAILY #7 tablet 12/02/24 [Rx] HYDROcodone/APAP 5-325MG [[place] 5-325] 1 tab PO Q6HR #12 tab 12/02/24 [Rx] Ipratropium-Albuterol Nebulize [Duoneb 0.5 mg-3 mg/3 ml Soln] 3 ml INHALATION RT-Q4H PRN each 12/02/24 [Rx] Meclizine [Antivert] 25 mg PO TID PRN #0 12/02/24 [Rx] Metoprolol Succinate (ER) [Toprol XL] 25 mg PO DAILY tab 12/02/24 [Rx] QUEtiapine [SEROquel] 25 mg PO HS tab 12/02/24 [Rx] cefuroxime axetiL [Ceftin] 500 mg PO BID #8 12/02/24 [Rx] lisinopriL [Zestril] 20 mg PO DAILY tab 12/02/24 [Rx] predniSONE See Taper PO DIRECTED #30 tab 12/02/24 [Rx] Follow up Appointment(s)/Referral(s): Waldemar Macdonald MD [STAFF PHYSICIAN] - 1 Week [facility] [NON-STAFF] - As Needed Edgard Schneider DO [Primary Care Provider] - 1-2 days Danita Dalton MD [STAFF PHYSICIAN] - 1 Week Activity/Diet/Wound Care/Special Instructions: Repeat BMP in 3 days to be followed up with PCP. Discharge Disposition: TRANSFER TO SNF/ECF Plan of Treatment: Recommend outpatient Lexiscan nuclear stress test
--- NOTE | 2024-12-02 15:43 | P.PN ---
Subjective Progress Note Date: 12/02/24 On today's evaluation of 11/29/2024, the patient is feeling well and denies having any significant shortness of breath at rest. He remains on Airvo 40 L with an FiO2 of 40%. He remains on IV Lasix and is producing excellent urine output. Fluid balance -1.1 L over the past 24 hours. He is able to sit up in a chair. No nausea. No vomiting. No chest pain or abdominal pain. His white cell count is elevated at 31.8 and this is higher compared to yesterday. BUN 48 with a creatinine of 1.1 and sodium is at 136. Glucose at 278. Otherwise, he remains on the same treatment with oxygen therapy including Airvo, DuoNeb updrafts, IV Lasix 40 mg every 24 hours, Lantus insulin 20 units daily along with NovoLog send scale coverage the patient remains on IV Solu-Medrol. On 11/30/2024, the patient is calm and comfortable. Oxygenation is improved and the patient is currently on 80 reduction by nasal cannula with a pulse ox of 99%. Continues to diurese well with IV Lasix. He is a negative fluid balance of 800 cc over the past 24 hours. Producing adequate amount of urine output. The white cell count of 26 with a hemoglobin of 11.8 and a platelet count of 216. BUN is 40 with a creatinine 1.2 and a sodium levels at 134 and a potassium level of 3.8. Continues to be on DuoNeb nebulized treatments [id number]. Continues to be on IV cefepime. Remains on Lantus insulin 20 units daily and NovoLog 5 units with meals. Remains on IV Solu-Medrol. Remains on a combination of aspirin and Plavix. Lasix 40 mg IV every 24 hours. No other new complaints otherwise for now. Resting comfortably in bed. The patient is seen today December 01, 2024 in follow-up on the selective care unit. He is currently sitting up at the bedside. Awake and alert in no acute distress. Maintaining good O2 saturations in the 90s on 2 L/min per nasal cannula. No worsening shortness of breath, cough or congestion. Glucose 451. He remains on Lantus and Humalog. He is continued on DuoNeb inhalations, Solu- Medrol and Singulair. He remains on heparin for DVT prophylaxis. Continued on Lasix daily. Currently in a -1.1 L balance. Currently on cefepime. The patient is seen today December 02, 2024 in follow-up on the selective care unit. He is currently sitting up in a chair at the bedside. Awake and alert in no acute distress. Maintaining good O2 saturations in the 90s on room air. He denies any worsening shortness of breath, cough or congestion. He is afebrile. Hemodynamically stable. Sodium 133. Potassium 3.4. Bicarb 36. BUN 2034. Creatinine 1.2. Glucose 197. He remains on DuoNeb and elations, Solu-Medrol and Singulair. Remains on IV diuretics. Remains on cefepime. Heparin for DVT prophylaxis. Objective - Vital Signs Vital signs: Vital Signs Temp 98.0 F 12/02/24 12:00 Pulse 60 12/02/24 14:00 Resp 18 12/02/24 14:00 BP 133/69 12/02/24 12:00 Pulse Ox 94 L 12/02/24 12:00 FiO2 37 11/29/24 15:46 Intake & Output 12/01/24 12/02/24 12/02/24 18:59 06:59 18:59 Intake Total 1200 360 Output Total 935 897 0214 Balance 092 -968 -652 Weight 87.4 kg 87 kg Intake: Oral 1200 360 Output: Urine 205 128 8139 Other: Voiding Method Indwelling Catheter Urinal Urinal # Voids 1 1 # Bowel Movements 1 1 - Exam GENERAL EXAM: Alert, pleasant 79-year-old male, on room air oxygen, up in a chair, comfortable in no apparent distress. HEAD: Normocephalic. EYES: Normal reaction of pupils, equal size. NOSE: Clear with pink turbinates. THROAT: No erythema or exudates. NECK: No masses, no JVD. CHEST: No chest wall deformity. LUNGS: Equal air entry with few scattered rhonchi. CVS: S1 and S2 normal with no audible murmur, regular rhythm. ABDOMEN: No hepatosplenomegaly, normal bowel sounds, no guarding or rigidity. SPINE: No scoliosis or deformity SKIN: No rashes CENTRAL NERVOUS SYSTEM: No focal deficits, tone is normal in all 4 extremities. EXTREMITIES: There is no peripheral edema. No clubbing, no cyanosis. Peripheral pulses are intact. - Labs CBC & Chem 7: 11/30/24 06:39 12/02/24 06:20 Labs: Abnormal Lab Results - Last 24 Hours (Table) 12/01/24 12/01/24 12/02/24 Range/Units 15:49 19:54 05:56 Sodium (137-145) mmol/L Potassium (3.5-5.1) mmol/L Chloride (98-107) mmol/L Carbon Dioxide (22-30) mmol/L BUN (9-20) mg/dL Glucose (74-99) mg/dL POC Glucose (mg/dL) 451 H 291 H 219 H (70-110) mg/dL Magnesium (1.6-2.3) mg/dL 12/02/24 12/02/24 12/02/24 Range/Units 06:20 10:21 11:13 Sodium 133 L (137-145) mmol/L Potassium 3.4 L (3.5-5.1) mmol/L Chloride 91 L (98-107) mmol/L Carbon Dioxide 36 H (22-30) mmol/L BUN 35 H (9-20) mg/dL Glucose 197 H (74-99) mg/dL POC Glucose (mg/dL) 201 H (70-110) mg/dL Magnesium 2.4 H (1.6-2.3) mg/dL Assessment and Plan Assessment: Acute hypoxemic respiratory failure, with diffuse bilateral groundglass pulmonary filtrates. Rule out atypical pneumonia versus CHF/interstitial edema. The patient oxygenation improved and the patient is currently off Airvo, maintained on oxygen at 8 L/min nasal cannula.. Echocardiogram shows a preserved LV function. CAT scan of the chest shows no evidence of any pulm embolism and diffuse groundglass bilateral pulmonary filtrates. Chest x-ray shows unchanged the patient is scattered interstitial pulmonary filtrates bilaterally. Consider interstitial edema versus atypical pneumonia. Rule out also acute lung injury, acute interstitial pneumonitis, acute hypersensitive pneumonitis, acute eosinophilic pneumonitis. Connective tissue disease markers were negative. Currently on IV steroids and diuretics and there is ongoing improvement in his oxygenation is now back on room air. Acute kidney injury, recovered Acute Non-ST segment elevation myocardial infarction. coronary artery disease. History of diabetes mellitus type II currently on Levemir insulin History of hypertension. History of gastroesophageal reflux disease. History of chronic lymphocytic leukemia, in remission. History of osteoarthritis. Plan: The patient was seen and evaluated Labs and medications reviewed Currently stable and on room air Could be transitioned to a prednisone taper Plan is for Jarad Gomez I have personally seen and examined the patient, performed the documentation and the assessment and plan as written. Number of minutes spent on the visit: 10 Dictation was produced using [employer] dictation software. Please excuse any grammatical, word or spelling errors.
[2024-12-02 16:05] LABS: Glucose,Whole Blood 268 mg/dL (70-110)
[2024-12-02 20:23] LABS: Glucose,Whole Blood 226 mg/dL (70-110)
[2024-12-03 06:21] LABS: Glucose,Whole Blood 155 mg/dL (70-110)
[2024-12-03 08:00] LABS: Basophils # (A) 0.2 k/uL (0-0.2); Basophils % (A) 0 %; Eosinophils % (A) 0 %; Lymphocytes % (A) 63 %; MCH 30.2 pg (25.0-35.0); MCHC 32.4 g/dL (31.0-37.0); MCV 93.2 fL (80.0-100.0); Mean Platelet Volume 8.2; Monocytes % (A) 3 %; Neutrophils # (A) 10.9 k/uL (1.3-7.7); Neutrophils % (A) 32 %; Platelet Count 275 k/uL (150-450); RBC 4.29 m/uL (4.30-5.90); WBC 34.3 k/uL (3.8-10.6)
[2024-12-03 08:03] LABS: Lymphocytes # (A) 21.6 k/uL (1.0-4.8)
[2024-12-03 08:08] LABS: African American GFR (CKD) 78 (>60 ml/min/1.73 sqM); Anion Gap 5 mmol/L; Blood Urea Nitrogen 34 mg/dL (9-20); Calcium 8.4 mg/dL (8.4-10.2); Carbon Dioxide 36 mmol/L (22-30); Chloride 96 mmol/L (98-107); Glucose 146 mg/dL (74-99); Non-African American GFR(CKD) 68 (>60 ml/min/1.73 sqM); Potassium 3.8 mmol/L (3.5-5.1); Sodium 137 mmol/L (137-145)
[2024-12-03 09:43] LABS: Crenated RBC Present; Poikilocytosis (M) Present
[2024-12-03 11:32] LABS: Glucose,Whole Blood 144 mg/dL (70-110)
--- NOTE | 2024-12-03 14:53 | P.DS ---
Providers Date of admission: 11/20/24 21:33 Expected date of discharge: 12/03/24 Attending physician: Carmen Gardner MD Consults: 11/22/24 07:59 Consult Physician Routine Consulting Provider: Raymond Maddox Consult Reason/Comments: hypoxic respiratory failure Do you want consulting provider notified?: Yes [facility] Course: Discharge Diagnosis: Acute hypoxic respiratory failure and sepsis due to multifocal PNA and ARDS Acute NSTEMI Prerenal azotemia with hypochloremic hyponatremia and metabolic alkalosis Hypokalemia DM with hyperglycemia Right foot wound Hypertension History of CLL Hospital Course: 79-year-old male with past medical history significant for coronary artery disease, insulin-dependent diabetes mellitus, hypertension presents to the emergency department today due to altered mental status, hypoxia and complaints of vomiting, cough productive of green sputum, and myalgias. In the ED he underwent extensive evaluation. BP 148/75, RI 113 bpm, T 99.5 F, RR 20, O2 saturation 86% on room air. WBCs 13.2, RBC 3.69, hemoglobin 11.7, hematocrit 32.9, platelets 137, sodium 137, potassium 3.2, chloride 99, CO2 25, BUN 15, creatinine 0.9, total bilirubin 1.5, alkaline phosphatase 132, troponin x 2 0.043 and 0.091, total protein 6.1; urinalysis 1+ protein, trace glucose. EKG sinus tachycardia with ventricular rate of 118 bpm, QTc 384 ms, left axis deviation, left ventricular hypertrophy. CXR and Brain CT negative for acute process. CTA chest showed no evidence of pulmonary embolism, diffuse patchy groundglass pulmonary opacities suggestive of atypical pulmonary infection, cholelithiasis, fluid identified within the visualized esophagus. Patient was started on IV hydration, Rocephin/Azithromycin and admitted for further workup and management. Pulmonary and Cardiology consulted. Completed 48H heparin infusion for type II NSTEMI, Echo showed EF of 55% with inferolateral wall hypokinesia, Cardiology recommended outpatient follow up for ischemic workup. Respiratory status worsened, started on AirVo and antibiotics switched to Vancomycin and Cefepime. MRSA nares negative, Vancomycin discontinued, continued on Cefepime for a total of 10 days during his hospitalization. He also received Lasix 40 mg IV QD x 7 days. Eventually weaned off oxygen on 12/02. Continue DuoNeb PRN, Tylenol PRN. New prescriptions include Seroquel, Metorolol, Lisinopril, ASA, Plavix, Lasix x 7 days and Prednisone taper. WBC still elevated, likely secondary to steroid. Repeat CBC outpatient. Repeat BMP in 3 days to be followed up with PCP. Follow up with Cardiology and Pulmonary within 1 week of discharge. Follow up with PCP within 1-2 days of discharge. Follow up with Wound Care PRN. Patient seen and examined at bedside. Vital signs reviewed and stable. General: non toxic, no distress, appears at stated age Derm: warm, dry Head: atraumatic, normocephalic, symmetric Eyes: EOMI, no lid lag, anicteric sclera Mouth: no lip lesion, mucus membranes moist Cardiovascular: S1S2 reg, no murmur Lungs: Decreased BS bilateral, no rhonchi, no rales , no accessory muscle use Ext: no gross muscle atrophy, no edema, no contractures Neuro: no focal neuro deficits Psych: Alert, oriented, appropriate affect A total of 38 minutes of time were spent preparing this complex discharge summary. Patient was discharged on 12/03/2024 at 1019. Patient Condition at Discharge: Stable Plan - Discharge Summary Discharge Rx Participant: No New Discharge Prescriptions: New Artificial Tears-Hypromellose [Artificial Tear Drops] 2 drops BOTH EYES TID PRN ml PRN Reason: Dry Eye(S) Acetaminophen Chew Tab [Children's Tylenol Chew Tab] 80 mg PO Q6HR PRN tab PRN Reason: Fever And/ Or Pain Ipratropium-Albuterol Nebulize [Duoneb 0.5 mg-3 mg/3 ml Soln] 3 ml INHALATION RT-Q4H PRN each PRN Reason: shortness of breath QUEtiapine [SEROquel] 25 mg PO HS tab Metoprolol Succinate (ER) [Toprol XL] 25 mg PO DAILY tab lisinopriL [Zestril] 20 mg PO DAILY tab Aspirin 81 mg PO DAILY tab Clopidogrel [Plavix] 75 mg PO DAILY tab predniSONE See Taper PO DIRECTED #30 tab Furosemide [Lasix] 40 mg PO DAILY #7 tablet Continue Montelukast Sodium [Singulair] 10 mg PO DAILY Fluticasone Nasal [place] [Flonase Nasal [place]] 2 spr EA NOSTRIL DAILY Atorvastatin [Lipitor] 80 mg PO DAILY Baclofen 10 - 20 mg PO DAILY Sucralfate [Carafate] 1 gm PO ACHS Insulin NPH Hum/Reg Insulin Hm [NovoLIN 70-30 100 Unit/ml Vial] 25 unit SQ DAILY Omeprazole 40 mg PO DAILY Insulin NPH Hum/Reg Insulin Hm [NovoLIN 70-30 100 Unit/ml Vial] 15 unit SQ HS HYDROcodone/APAP 5-325MG [[place] 5-325] 1 tab PO Q6HR #12 tab ALPRAZolam [Xanax] 0.25 mg PO DAILY PRN #3 tab PRN Reason: Anxiety Changed Meclizine [Antivert] 25 mg PO TID PRN #0 PRN Reason: Vertigo Discontinued lisinopriL [Zestril] 20 mg PO BID cefuroxime axetiL [Ceftin] 500 mg PO BID Discharge Medication List Montelukast Sodium [Singulair] 10 mg PO DAILY 05/25/17 [History] Fluticasone Nasal [place] [Flonase Nasal [place]] 2 spr EA NOSTRIL DAILY 01/24/21 [History] Atorvastatin [Lipitor] 80 mg PO DAILY 03/08/21 [History] Omeprazole 40 mg PO DAILY 07/27/21 [History] Baclofen 10 - 20 mg PO DAILY 11/06/24 [History] Sucralfate [Carafate] 1 gm PO ACHS 11/06/24 [History] Insulin NPH Hum/Reg Insulin Hm [NovoLIN 70-30 100 Unit/ml Vial] 15 unit SQ HS 11/20/24 [History] Insulin NPH Hum/Reg Insulin Hm [NovoLIN 70-30 100 Unit/ml Vial] 25 unit SQ DAILY 11/20/24 [History] ALPRAZolam [Xanax] 0.25 mg PO DAILY PRN #3 tab 12/02/24 [Rx] Acetaminophen Chew Tab [Children's Tylenol Chew Tab] 80 mg PO Q6HR PRN tab 12/02/24 [Rx] Artificial Tears-Hypromellose [Artificial Tear Drops] 2 drops BOTH EYES TID PRN ml 12/02/24 [Rx] Aspirin 81 mg PO DAILY tab 12/02/24 [Rx] Clopidogrel [Plavix] 75 mg PO DAILY tab 12/02/24 [Rx] Furosemide [Lasix] 40 mg PO DAILY #7 tablet 12/02/24 [Rx] HYDROcodone/APAP 5-325MG [[place] 5-325] 1 tab PO Q6HR #12 tab 12/02/24 [Rx] Ipratropium-Albuterol Nebulize [Duoneb 0.5 mg-3 mg/3 ml Soln] 3 ml INHALATION RT-Q4H PRN each 12/02/24 [Rx] Meclizine [Antivert] 25 mg PO TID PRN #0 12/02/24 [Rx] Metoprolol Succinate (ER) [Toprol XL] 25 mg PO DAILY tab 12/02/24 [Rx] QUEtiapine [SEROquel] 25 mg PO HS tab 12/02/24 [Rx] lisinopriL [Zestril] 20 mg PO DAILY tab 12/02/24 [Rx] predniSONE See Taper PO DIRECTED #30 tab 12/02/24 [Rx] Follow up Appointment(s)/Referral(s): Waldemar Macdonald MD [STAFF PHYSICIAN] - 1 Week [facility] [NON-STAFF] - As Needed Edgard Schneider DO [Primary Care Provider] - 1-2 days Danita Dalton MD [STAFF PHYSICIAN] - 1 Week Patient Instructions/Handouts: Hypoxia (GEN) Activity/Diet/Wound Care/Special Instructions: Repeat BMP in 3 days to be followed up with PCP. Discharge Disposition: TRANSFER TO SNF/ECF Plan of Treatment: Recommend outpatient Lexiscan nuclear stress test
--- NOTE | 2024-12-03 16:09 | P.PN ---
Subjective Progress Note Date: 12/03/24 On today's evaluation of 11/29/2024, the patient is feeling well and denies having any significant shortness of breath at rest. He remains on Airvo 40 L with an FiO2 of 40%. He remains on IV Lasix and is producing excellent urine output. Fluid balance -1.1 L over the past 24 hours. He is able to sit up in a chair. No nausea. No vomiting. No chest pain or abdominal pain. His white cell count is elevated at 31.8 and this is higher compared to yesterday. BUN 48 with a creatinine of 1.1 and sodium is at 136. Glucose at 278. Otherwise, he remains on the same treatment with oxygen therapy including Airvo, DuoNeb updrafts, IV Lasix 40 mg every 24 hours, Lantus insulin 20 units daily along with NovoLog send scale coverage the patient remains on IV Solu-Medrol. On 11/30/2024, the patient is calm and comfortable. Oxygenation is improved and the patient is currently on 80 reduction by nasal cannula with a pulse ox of 99%. Continues to diurese well with IV Lasix. He is a negative fluid balance of 800 cc over the past 24 hours. Producing adequate amount of urine output. The white cell count of 26 with a hemoglobin of 11.8 and a platelet count of 216. BUN is 40 with a creatinine 1.2 and a sodium levels at 134 and a potassium level of 3.8. Continues to be on DuoNeb nebulized treatments [id number]. Continues to be on IV cefepime. Remains on Lantus insulin 20 units daily and NovoLog 5 units with meals. Remains on IV Solu-Medrol. Remains on a combination of aspirin and Plavix. Lasix 40 mg IV every 24 hours. No other new complaints otherwise for now. Resting comfortably in bed. The patient is seen today December 01, 2024 in follow-up on the selective care unit. He is currently sitting up at the bedside. Awake and alert in no acute distress. Maintaining good O2 saturations in the 90s on 2 L/min per nasal cannula. No worsening shortness of breath, cough or congestion. Glucose 451. He remains on Lantus and Humalog. He is continued on DuoNeb inhalations, Solu- Medrol and Singulair. He remains on heparin for DVT prophylaxis. Continued on Lasix daily. Currently in a -1.1 L balance. Currently on cefepime. The patient is seen today December 02, 2024 in follow-up on the selective care unit. He is currently sitting up in a chair at the bedside. Awake and alert in no acute distress. Maintaining good O2 saturations in the 90s on room air. He denies any worsening shortness of breath, cough or congestion. He is afebrile. Hemodynamically stable. Sodium 133. Potassium 3.4. Bicarb 36. BUN 2034. Creatinine 1.2. Glucose 197. He remains on DuoNeb and elations, Solu-Medrol and Singulair. Remains on IV diuretics. Remains on cefepime. Heparin for DVT prophylaxis. The patient is seen today December 03, 2024 in follow-up on the selective care unit. He is awake and alert in no acute distress. Sitting up in bed. Denies any worsening shortness of breath, cough or congestion. He is maintaining good O2 saturations in the 90s on room air. He is continued on IV diuretics. Continued on Solu-Medrol. Remains on bronchodilators and Singulair. Blood culture revealed no growth. White count 34.3. Hemoglobin 13.0. Platelets 275. Sodium 137. Potassium 3.8. Bicarb 36. BUN 34. Creatinine 1.06. Glucose 146. Objective - Vital Signs Vital signs: Vital Signs Temp 97.6 F 12/03/24 12:00 Pulse 66 12/03/24 14:00 Resp 18 12/03/24 14:00 BP 122/59 12/03/24 12:00 Pulse Ox 94 L 12/03/24 12:00 FiO2 37 11/29/24 15:46 Intake & Output 12/02/24 12/03/24 12/03/24 18:59 06:59 18:59 Intake Total 540 984 Output Total 1000 125 850 Balance -460 -125 134 Weight 89 kg Intake: Oral 540 984 Output: Urine 1000 125 850 Other: Voiding Method Urinal Urinal Urinal # Voids 1 1 # Bowel Movements 1 1 - Exam GENERAL EXAM: Alert, 79-year-old male, on room air oxygen, comfortable in no apparent distress. HEAD: Normocephalic. EYES: Normal reaction of pupils, equal size. NOSE: Clear with pink turbinates. THROAT: No erythema or exudates. NECK: No masses, no JVD. CHEST: No chest wall deformity. LUNGS: Equal air entry with few scattered rhonchi. CVS: S1 and S2 normal with no audible murmur, regular rhythm. ABDOMEN: No hepatosplenomegaly, normal bowel sounds, no guarding or rigidity. SPINE: No scoliosis or deformity SKIN: No rashes CENTRAL NERVOUS SYSTEM: No focal deficits, tone is normal in all 4 extremities. EXTREMITIES: There is no peripheral edema. No clubbing, no cyanosis. Peripheral pulses are intact. - Labs CBC & Chem 7: 12/03/24 06:53 12/03/24 06:53 Labs: Abnormal Lab Results - Last 24 Hours (Table) 12/02/24 12/02/24 12/03/24 Range/Units 16:04 20:21 06:20 WBC (3.8-10.6) k/uL RBC (4.30-5.90) m/uL Neutrophils # (1.3-7.7) k/uL Lymphocytes # (1.0-4.8) k/uL Chloride (98-107) mmol/L Carbon Dioxide (22-30) mmol/L BUN (9-20) mg/dL Glucose (74-99) mg/dL POC Glucose (mg/dL) 268 H 226 H 155 H (70-110) mg/dL 12/03/24 12/03/24 12/03/24 Range/Units 06:53 06:53 11:31 WBC 34.3 H (3.8-10.6) k/uL RBC 4.29 L (4.30-5.90) m/uL Neutrophils # 10.9 H (1.3-7.7) k/uL Lymphocytes # 21.6 H (1.0-4.8) k/uL Chloride 96 L (98-107) mmol/L Carbon Dioxide 36 H (22-30) mmol/L BUN 34 H (9-20) mg/dL Glucose 146 H (74-99) mg/dL POC Glucose (mg/dL) 144 H (70-110) mg/dL Assessment and Plan Assessment: Acute hypoxemic respiratory failure, with diffuse bilateral groundglass pulmonary filtrates. Rule out atypical pneumonia versus CHF/interstitial edema. The patient oxygenation improved and the patient is currently off Airvo, maintained on oxygen at 8 L/min nasal cannula.. Echocardiogram shows a preserved LV function. CAT scan of the chest shows no evidence of any pulm embolism and diffuse groundglass bilateral pulmonary filtrates. Chest x-ray shows unchanged the patient is scattered interstitial pulmonary filtrates bilaterally. Consider interstitial edema versus atypical pneumonia. Rule out also acute lung injury, acute interstitial pneumonitis, acute hypersensitive pneumonitis, acute eosinophilic pneumonitis. Connective tissue disease markers were negative. Currently on IV steroids and diuretics and there is ongoing improvement in his oxygenation is now back on room air. Acute kidney injury, recovered Acute Non-ST segment elevation myocardial infarction. coronary artery disease. History of diabetes mellitus type II currently on Levemir insulin History of hypertension. History of gastroesophageal reflux disease. History of chronic lymphocytic leukemia, in remission. History of osteoarthritis. Plan: The patient was seen and evaluated Labs and medications reviewed Currently stable and on room air Transitioned to a prednisone taper Transitioned to oral diuretics Completed antibiotics Plan is for [facility] possibly today I have personally seen and examined the patient, performed the documentation and the assessment and plan as written. Number of minutes spent on the visit: 10 Dictation was produced using [employer] dictation software. Please excuse any grammatical, word or spelling errors.
[2024-12-03 16:57] LABS: Glucose,Whole Blood 247 mg/dL (70-110)
[2024-12-03 19:59] LABS: Glucose,Whole Blood 220 mg/dL (70-110)
[2024-12-04 04:19] VITALS: TEMP 98.1
[2024-12-04 05:45] LABS: Glucose,Whole Blood 114 mg/dL (70-110)
[2024-12-04] MEDS: FUROSEMIDE 40 MG TAB PO SCH (08:59)
[2024-12-04] MEDS: predniSONE 20 MG TAB PO SCH (08:59)
[2024-12-04 11:23] LABS: Glucose,Whole Blood 164 mg/dL (70-110)
[2024-12-04 12:01] VITALS: BP 121/64; PULSE 64; RESP 16
== END 2024-12-04 12:31 | DRG 871 ==
LOC: EC 18:27 → 3SCARD 21:33
PROVIDERS: ADMIT Internal Medicine; ATTEND Internal Medicine
DX: A41.9 Sepsis, unspecified organism (principal); G93.41 Metabolic encephalopathy; J18.9 Pneumonia, unspecified organism; I21.A1 Myocardial infarction type 2; J96.01 Acute respiratory failure with hypoxia; E87.3 Alkalosis; F05 Delirium due to known physiological condition; C91.11 Chronic lymphocytic leukemia of B-cell type in remission; K80.20 Calculus of gallbladder without cholecystitis without obstruction; D69.6 Thrombocytopenia, unspecified; E11.621 Type 2 diabetes mellitus with foot ulcer; I11.0 Hypertensive heart disease with heart failure; D64.9 Anemia, unspecified; I08.2 Rheumatic disorders of both aortic and tricuspid valves; N17.9 Acute kidney failure, unspecified; Z79.4 Long term (current) use of insulin; L98.492 Non-pressure chronic ulcer of skin of other sites with fat layer exposed; L97.512 Non-pressure chronic ulcer of other part of right foot with fat layer exposed; E11.65 Type 2 diabetes mellitus with hyperglycemia; I50.9 Heart failure, unspecified; Z11.52 Encounter for screening for COVID-19; E87.6 Hypokalemia; Z79.899 Other long term (current) drug therapy; E78.5 Hyperlipidemia, unspecified; E87.8 Other disorders of electrolyte and fluid balance, not elsewhere classified; F11.90 Opioid use, unspecified, uncomplicated; I25.10 Atherosclerotic heart disease of native coronary artery without angina pectoris; M19.041 Primary osteoarthritis, right hand; M19.042 Primary osteoarthritis, left hand; T38.0X5A Adverse effect of glucocorticoids and synthetic analogues, initial encounter; Z79.02 Long term (current) use of antithrombotics/antiplatelets; Z79.82 Long term (current) use of aspirin; Z79.84 Long term (current) use of oral hypoglycemic drugs; Z83.3 Family history of diabetes mellitus; X58.XXXA Exposure to other specified factors, initial encounter; Z88.1 Allergy status to other antibiotic agents; Z88.8 Allergy status to other drugs, medicaments and biological substances
CPT/HCPCS: 36415; 36600; 51702; 51798; 70450; 71045; 71046; 71275; 76770; 80048; 80053; 80306; 80320; 81001; 82272; 82565; 82805; 83036; 83605; 83735; 83880; 84145; 84484; 85025; 85610; 85730; 86038; 86235; 86255; 86431; 87040; 87070; 87449; 87636; 93005; 93306; 93922; 94640; 94760; 96361; 96365; 96366; 96367; 96368; 96372; 96375; 99291

== ENCOUNTER 2025-01-26 11:03 | Emergency (ER) | payer MEDICARE ==
[2025-01-26 11:08] VITALS: BP 109/61; PULSE 80; RESP 18; TEMP 97.4
--- NOTE | 2025-01-26 11:29 | ED ---
General Adult HPI - General Chief complaint: Recheck/Abnormal Lab/Rx Stated complaint: Abn labs Time Seen by Provider: 01/26/25 11:06 Source: patient, EMS, RN notes reviewed, old records reviewed Mode of arrival: EMS - History of Present Illness Initial comments: 79-year-old male presenting from alf with low hemoglobin. This has been a chronic issue for the patient. The patient himself not exactly certain why he is here. He denies rectal bleeding. He reports generalized weakness and fatigue. Patient is apparently bedbound, does not ambulate. He is a permanent resident of the alf. No fever. No cough. - Related Data Home Medications Medication Instructions Recorded Confirmed Montelukast Sodium [Singulair] 10 mg PO DAILY 05/25/17 11/20/24 Fluticasone Nasal [place] [Flonase 2 spr EA NOSTRIL DAILY 01/24/21 11/20/24 Nasal [place]] Atorvastatin [Lipitor] 80 mg PO DAILY 03/08/21 11/20/24 Omeprazole 40 mg PO DAILY 07/27/21 11/20/24 Baclofen 10 - 20 mg PO DAILY 11/06/24 11/20/24 Sucralfate [Carafate] 1 gm PO ACHS 11/06/24 11/20/24 Insulin NPH Hum/Reg Insulin Hm 15 unit SQ HS 11/20/24 11/20/24 [NovoLIN 70-30 100 Unit/ml Vial] Insulin NPH Hum/Reg Insulin Hm 25 unit SQ DAILY 11/20/24 11/20/24 [NovoLIN 70-30 100 Unit/ml Vial] Previous Rx's Medication Instructions Recorded ALPRAZolam [Xanax] 0.25 mg PO DAILY PRN #3 tab 12/02/24 Acetaminophen Chew Tab [Children's 80 mg PO Q6HR PRN tab 12/02/24 Tylenol Chew Tab] Artificial Tears-Hypromellose 2 drops BOTH EYES TID PRN ml 12/02/24 [Artificial Tear Drops] Aspirin 81 mg PO DAILY tab 12/02/24 Clopidogrel [Plavix] 75 mg PO DAILY tab 12/02/24 Furosemide [Lasix] 40 mg PO DAILY #7 tablet 12/02/24 HYDROcodone/APAP 5-325MG [[place] 1 tab PO Q6HR #12 tab 12/02/24 5-325] Ipratropium-Albuterol Nebulize 3 ml INHALATION RT-Q4H PRN each 12/02/24 [Duoneb 0.5 mg-3 mg/3 ml Soln] Meclizine [Antivert] 25 mg PO TID PRN #0 12/02/24 Metoprolol Succinate (ER) [Toprol 25 mg PO DAILY tab 12/02/24 XL] QUEtiapine [SEROquel] 25 mg PO HS tab 12/02/24 lisinopriL [Zestril] 20 mg PO DAILY tab 12/02/24 predniSONE See Taper PO DIRECTED #30 tab 12/02/24 Allergies Allergy/AdvReac Type Severity Reaction Status Date / Time amoxicillin [From Augmentin] Allergy Rash/Hives Verified 11/20/24 20:14 clavulanic acid Allergy Rash/Hives Verified 11/20/24 20:14 [From Augmentin] Review of Systems ROS Statement: Those systems with pertinent positive or pertinent negative responses have been documented in the HPI. ROS Other: All systems not noted in ROS Statement are negative. Past Medical History Past Medical History: Coronary Artery Disease (CAD), Cancer, Diabetes Mellitus, GERD/Reflux, Hypertension, Osteoarthritis (OA) Additional Past Medical History / Comment(s): NIDDM type II, 1999 LEUKEMIA (CLL-remission), sinus problems, seasonal allergies, tinnitis bilaterally, OA hands, R wrist carpal tunnel, past fx with L elbow, R rotator cuff tendon problems, L rotator cuff tear, left knee pain History of Any Multi-Drug Resistant Organisms: None Reported Past Surgical History: Heart Catheterization, Orthopedic Surgery Additional Past Surgical History / Comment(s): LEFT HAND thumb tendon repair. L knee surgery. Past Anesthesia/Blood Transfusion Reactions: No Reported Reaction Past Psychological History: No Psychological Hx Reported Smoking Status: Never smoker Past Alcohol Use History: None Reported Past Drug Use History: None Reported - Past Family History Father Family Medical History: CVA/TIA Additional Family Medical History / Comment(s): Father at the age of 85yrs. Mother Family Medical History: Diabetes Mellitus Additional Family Medical History / Comment(s): Mother at the age of 90yrs. General Exam General appearance: alert, in no apparent distress Head exam: Present: atraumatic, normocephalic Eye exam: Present: normal appearance, PERRL ENT exam: Present: mucous membranes dry Respiratory exam: Present: normal lung sounds bilaterally. Absent: respiratory distress, wheezes Cardiovascular Exam: Present: regular rate, normal rhythm GI/Abdominal exam: Present: soft. Absent: distended Extremities exam: Present: normal inspection, normal capillary refill Neurological exam: Present: alert. Absent: motor sensory deficit Skin exam: Present: warm, dry, pallor Course Vital Signs 01/26/25 11:04 Temperature 97.4 F L Pulse Rate 80 Respiratory 18 Rate Blood Pressure 109/61 O2 Sat by Pulse 93 L Oximetry Medical Decision Making - Medical Decision Making Was pt. sent in by a medical professional or institution (, NEW, HEALTH TEACHER, urgent care, hospital, or alf...) When possible be specific @ -No Did you speak to anyone other than the patient for history (EMS, parent, family, police, friend...)? What history was obtained from this source @ -No Did you review nursing and triage notes (agree or disagree)? Why? @ -I reviewed and agree with nursing and triage notes Were old charts reviewed (outside hosp., previous admission, EMS record, old EKG, old radiological studies, urgent care reports/EKG's, alf records)? Report findings @ -No old charts were reviewed Differential Diagnosis anemia of chronic disease, GI bleed, iron deficiency, acute blood loss anemia EKG interpreted by me (3pts min.). @ -As above X-rays interpreted by me (1pt min.). @ -None done CT interpreted by me (1pt min.). @ -None done U/S interpreted by me (1pt. min.). @ -None done What testing was considered but not performed or refused? (CT, X-rays, U/S, labs)? Why? @ -None What meds were considered but not given or refused? Why? @ -None Did you discuss the management of the patient with other professionals (professionals i.e. NEW [facility], HEALTH TEACHER, lab, RT, psych nurse, social service coordinator, hide measuring machine operator, teacher, chief knowledge officer, case planner)? Give summary @ -No Was smoking cessation discussed for >3mins.? @ -No Was critical care preformed (if so, how long)? @ -No Were there social determinants of health that impacted care today? How? (Homelessness, low income, unemployed, alcoholism, drug addiction, transportation, low edu. Level, literacy, decrease access to med. care, detention, rehab)? @ -No Was there de-escalation of care discussed even if they declined (Discuss DNR or withdrawal of care, Hospice)? DNR status @ -No What co-morbidities impacted this encounter? (DM, HTN, Smoking, COPD, CAD, Cancer, CVA, ARF, Chemo, Hep., AIDS, mental health diagnosis, sleep apnea, morbid obesity)? @ -Chronic anemia Was patient admitted / discharged? Hospital course, mention meds given and route, prescriptions, significant lab abnormalities, going to OR and other pertinent info. @ -79-year-old male with chronic anemia presenting with a low hemoglobin outpatient. Vital signs are stable. Patient is currently residing in a alf. I did repeat blood testing today which shows a hemoglobin 7.7. This will require continued surveillance and this can be done at the alf. Patient stable for discharge at this time. Undiagnosed new problem with uncertain prognosis? @ -No Drug Therapy requiring intensive monitoring for toxicity (Heparin, Nitro, Insulin, Cardizem)? @ -No Were any procedures done? @ -No Diagnosis/symptom? @ -Anemia Acute, or Chronic, or Acute on Chronic? @ -[Acute on chronic Uncomplicated (without systemic symptoms) or Complicated (systemic symptoms)? @ -Complicated Side effects of treatment? @ -No Exacerbation, Progression, or Severe Exacerbation? @ -No Poses a threat to life or bodily function? How? (Chest pain, USA, PR, pneumonia, PE, COPD, DKA, ARF, appy, cholecystitis, CVA, Diverticulitis, Homicidal, Suicidal, threat to staff... and all critical care pts) @ -Yes, anemia, hemorrhagic shock - Lab Data Result diagrams: 01/26/25 11:18 01/26/25 11:18 Lab Results 01/26/25 01/26/25 01/26/25 Range/Units 11:00 11:18 11:18 WBC 13.04 H (4.50-10.00) 10*3/uL RBC 2.37 L (4.40-5.60) 10*6/uL Hgb 7.7 L (13.0-17.0) g/dL Hct 22.7 L (39.6-50.0) % MCV 95.8 (80.0-97.0) fL MCH 32.5 H (27.0-32.0) pg MCHC 33.9 (32.0-37.0) g/dL Plt Count 246 (140-440) 10*3/uL MPV 9.8 (9.5-12.2) fL Immature Gran % (Auto) 0.4 % Immature Gran # 0.05 H (0.00-0.04) 10*3/uL PT 11.7 (10.0-12.5) sec INR 1.1 (<1.2) APTT 22.5 (22.0-30.0) sec Sodium (137-145) mmol/L Potassium (3.5-5.1) mmol/L Chloride (98-107) mmol/L Carbon Dioxide (22-30) mmol/L Anion Gap mmol/L BUN (9-20) mg/dL Creatinine (0.66-1.25) mg/dL Est GFR (CKD-EPI)AfAm (>60 ml/min/1.73 sqM) Est GFR (CKD-EPI)NonAf (>60 ml/min/1.73 sqM) Glucose (74-99) mg/dL Calcium (8.4-10.2) mg/dL Magnesium (1.6-2.3) mg/dL Total Bilirubin (0.2-1.3) mg/dL AST (17-59) U/L ALT (4-49) U/L Alkaline Phosphatase (38-126) U/L Total Protein (6.3-8.2) g/dL Albumin (3.5-5.0) g/dL Blood Type O Negative Blood Type Recheck O Neg Bld Type Recheck Status No Antibody Screen NEGATIVE Spec Expiration Date 01/29/2025 - 231701/26/25 Range/Units 11:18 WBC (4.50-10.00) 10*3/uL RBC (4.40-5.60) 10*6/uL Hgb (13.0-17.0) g/dL Hct (39.6-50.0) % MCV (80.0-97.0) fL MCH (27.0-32.0) pg MCHC (32.0-37.0) g/dL Plt Count (140-440) 10*3/uL MPV (9.5-12.2) fL Immature Gran % (Auto) % Immature Gran # (0.00-0.04) 10*3/uL PT (10.0-12.5) sec INR (<1.2) APTT (22.0-30.0) sec Sodium 140 (137-145) mmol/L Potassium 4.2 (3.5-5.1) mmol/L Chloride 107 (98-107) mmol/L Carbon Dioxide 26 (22-30) mmol/L Anion Gap 7 mmol/L BUN 23 H (9-20) mg/dL Creatinine 0.79 (0.66-1.25) mg/dL Est GFR (CKD-EPI)AfAm >90 (>60 ml/min/1.73 sqM) Est GFR (CKD-EPI)NonAf 87 (>60 ml/min/1.73 sqM) Glucose 116 H (74-99) mg/dL Calcium 9.5 (8.4-10.2) mg/dL Magnesium 1.9 (1.6-2.3) mg/dL Total Bilirubin 1.0 (0.2-1.3) mg/dL AST 23 (17-59) U/L ALT 20 (4-49) U/L Alkaline Phosphatase 130 H (38-126) U/L Total Protein 5.4 L (6.3-8.2) g/dL Albumin 3.3 L (3.5-5.0) g/dL Blood Type Blood Type Recheck Bld Type Recheck Status Antibody Screen Spec Expiration Date Disposition Clinical Impression: Anemia Disposition: HOME SELF-CARE Condition: Fair Instructions (If sedation given, give patient instructions): Anemia (ED) Is patient prescribed a controlled substance at d/c from ED?: No Referrals: Edgard Schneider DO [Primary Care Provider] - 1-2 days Time of Disposition: 12:42
[2025-01-26 11:39] LABS: ALT 20 U/L (4-49); AST 23 U/L (17-59); African American GFR (CKD) >90 (>60 ml/min/1.73 sqM); Albumin 3.3 g/dL (3.5-5.0); Alkaline Phosphatase 130 U/L (38-126); Anion Gap 7 mmol/L; Blood Urea Nitrogen 23 mg/dL (9-20); Calcium 9.5 mg/dL (8.4-10.2); Carbon Dioxide 26 mmol/L (22-30); Chloride 107 mmol/L (98-107); Glucose 116 mg/dL (74-99); Magnesium 1.9 mg/dL (1.6-2.3); Non-African American GFR(CKD) 87 (>60 ml/min/1.73 sqM); Potassium 4.2 mmol/L (3.5-5.1); Sodium 140 mmol/L (137-145); Total Protein 5.4 g/dL (6.3-8.2)
[2025-01-26 11:45] LABS: INR 1.1 (<1.2); Partial Thromboplastin Time 22.5 sec (22.0-30.0); Prothrombin Time 11.7 sec (10.0-12.5)
[2025-01-26 11:57] LABS: HCT 22.7 % (39.6-50.0); HGB 7.7 g/dL (13.0-17.0); MCH 32.5 pg (27.0-32.0); MCHC 33.9 g/dL (32.0-37.0); MCV 95.8 fL (80.0-97.0); Mean Platelet Volume 9.8 fL (9.5-12.2); Platelet Count 246 10*3/uL (140-440); RBC 2.37 10*6/uL (4.40-5.60); RDW 16.6 % (11.5-14.5); WBC 13.04 10*3/uL (4.50-10.00)
[2025-01-26 13:24] LABS: Eosinophils # (M) 0.13 k/uL (0-0.7); Lymphocytes # (M) 8.48 k/uL (1.0-4.8); Metamyelocytes # (M) 0.26 k/uL (0); Metamyelocytes % 2 %; Monocytes # (M) 0.26 k/uL (0-1.0); Myelocytes # (M) 0.39 k/uL (0); Myelocytes % 3 %; Neutrophils # (M) 3.52 k/uL (1.3-7.7); Neutrophils % (M) 27 %; Nucleated Red Blood Cells 0 /100 WBC (0-0); Total Cells Counted 100
== END 2025-01-26 13:16 | disposition home or self-care (01) ==
LOC: EC 11:03
DX: D64.9 Anemia, unspecified (principal); Z88.0 Allergy status to penicillin; Z88.1 Allergy status to other antibiotic agents
CPT/HCPCS: 36415; 80053; 83735; 85025; 85610; 85730; 86850; 86900; 86901; 99283